=== PATIENT | male | born 1950 | race Caucasian/White ===

== ENCOUNTER 2019-02-22 08:04 | Inpatient (IN) | payer MEDICARE, OTHER ==
[~2019-02-22] VITALS: Ht 198.1 cm; Wt 96.2 kg
--- OUTSIDE RECORDS SUMMARY | 2019-02-22 08:07 | XMS REPORT | Clinical Summary ---
Author Author JARED TrashOutBo[facility] Medical CenterAltor NetworksCentral Arkansas Veterans Healthcare SystemFwdHealthShriners Hospital for Children Address Unknown Phone Unavailable Care Team Providers Care Telephone Sales Agent Name Role Phone Nic Paz MD PCP Unavailable Matthew Armstrong Unavailable Allergies No Known Allergies Medications End Date Status Medication Sig Dispensed Refills Start Date Active rosuvastatin (CRESTOR) 40 Take 40 mg by 0 MG tablet mouth daily. Active DULoxetine (CYMBALTA) 30 Take 60 mg by 0 MG capsule mouth daily. Active tamsulosin (FLOMAX) 0.4 Take 0.4 mg 0 mg Cp24 24 hr capsule by mouth daily. Active allopurinol (ZYLOPRIM) Take 300 mg 0 300 MG tablet by mouth daily. Active spironolactone Take 25 mg by 0 (ALDACTONE) 25 MG tablet mouth daily. Active torsemide (DEMADEX) 10 MG Take 10 mg by 0 tablet mouth daily. Active lisinopril Take 40 mg by 0 (PRINIVIL,ZESTRIL) 40 MG mouth daily. tablet Active cloNIDine (CATAPRES) 0.1 Take 0.1 mg 0 MG tablet by mouth 3 (three) times daily. Active carvedilol (COREG) 25 MG Take 25 mg by 0 tablet mouth 2 (two) times daily with breakfast and dinner. Active esomeprazole (NEXIUM) 40 Take 40 mg by 0 MG capsule mouth daily. Active HYDROcodone-acetaminophen Take 1 tablet 0 (NORCO 10-325) 10-325 mg by mouth per tablet every 6 (six) hours as needed. Active blood sugar diagnostic GLUCOMETER 400 strip 3 (GLUCOSE BLOOD) Strp TEST STRIPS 4 TO USE 4 A DAY # 400 REFILLS X 3 LANCETS TO USE 4 A DAY # 400 REFILLS X 3 Active insulin detemir (LEVEMIR TO USE 42 15 mL 3 FLEXPEN) 100 unit/mL (3 UNITS Q AM 4 mL) InPn AND 20 UNITS Q 9 PM Active insulin lispro (HUMALOG TO USE 18 TO 15 mL 3 KWIKPEN) 100 unit/mL InPn 50 UNITS 4 THREE TIMES A DAY PER SLIDING SCALE Active insulin needles, TO USE 6 A 600 each 3 disposable, 31 X 5/16 " DAY 4 Ndle Active Problems Problem Noted Date Encephalopathy 10/20/2013 Immunizations Name Dates Previously Given Next Due Pneumococcal 10/21/2013 Polysaccharide (Pneumovax) Social History Date Tobacco Use Types Packs/Day Years Used Never Smoker Smokeless Tobacco: Never Used Alcohol Use Drinks/Week oz/Week Comments No Sex Assigned at Date Recorded Not on file Industry Job Start Date Occupation Not on file Not on file Not on file Travel End Travel History Travel Start No recent travel history available. Last Filed Vital Signs Not on file Plan of Treatment Not on file Results Not on fileafter 02/21/2018 Insurance Payer Benefit Subscriber ID Type Phone Address Plan / Group MEDICARE MEDICARE A xxxxxxxxxx Medicare B MCR SUPPLEMENT/INDIVIDUAL GENERIC xxxxxxxxxx Medigap MEDICARE SUPPLEMENT MCR SUPPLEMENT/INDIVIDUAL AARP/UNITE xxxxxxxxxxx Medigap D HEALTHCARE Advance Directives For more information, please contact: [address] [address] Date Inactivated Comments Code Status Date Activated 10/25/2013 5:35 PM All possible means of support, including: cardiac massage, mechanical ventilation, and defibrillation will be used to support life. Code ONE 10/21/2013 12:59 AM
--- OUTSIDE RECORDS SUMMARY | 2019-02-22 08:10 | XMS REPORT | Continuity of Care Document ---
Author Author [employer] Address Unknown Phone Unavailable Care Team Providers Care Research Chef Name Role Phone [employer]Fire Information [facility] [facility] Unavailable Unavailable Problems Problem Status Onset Date Classification Date Reported Comments Source THROMBECTOMY Active 01/18/2019 [facility] 3 Active 01/18/2019 [facility] MRSA WOUND Active 10/29/2018 [facility] Methicillin resistant Staphylococcus aureus (organism) Active 08/01/2018 Problem 02/07/2019 [facility] Joint Aspirate - 08/01/2018 Blood, 01/19/2017 Problem added by Discern Expert. Medical Group,[facility], JESSE [place] RIGHT LOWER LEG WOUND CHRCK Active 07/28/2018 [facility] RIGHT LEG SWELLING Active 07/15/2017 [facility] SENT BY Active 04/10/2017 [facility] DEEP [place] THROMBOSIS Active 04/10/2017 [facility] CELLULITIS EVE LOWER EXTREMITY AFTER RES Active 01/19/2017 [facility] CELLULITITS,CHRONIC OSTEOMYELITIS ANKLE/ Active 01/19/2017 [facility] DR SENT DIABETIC/WOUND Active 01/19/2017 [facility] R06.02 - SHORTNESS OF BREATH Active 10/17/2016 JESSE Guerrier Gout (disorder) Active 07/05/2014 Problem 02/07/2019 Data migrated from [employer] on 11/20/14. Medical Group,[facility], JESSE Guerrier, JESSE [place] Chronic kidney disease stage 4 (disorder) Active 07/05/2014 Problem 10/20/2016 Data migrated from [employer] on 11/20/14. 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 Medical Group,[facility], JESSE Guerrier, JESSE [place] Edema (finding) Active 03/12/2014 Problem 10/20/2016 Data migrated from [employer] on 11/20/14. [facility] [place] Malignant hypertension (disorder) Active 11/23/2013 Problem 10/20/2016 Data migrated from [employer] on 11/20/14. [facility] [place] Depressive disorder (disorder) Active 08/10/2013 Problem 10/20/2016 Data migrated from [employer] on 11/20/14. [facility] [place] Impotence (disorder) Active 05/05/2013 Problem 10/20/2016 Data migrated from [employer] on 11/20/14. [facility] [place] Atrial fibrillation (disorder) Active Problem 02/07/2019 Medical Group,[facility], [place] [place] Benign essential hypertension (disorder) Active Problem 02/07/2019 Data migrated from [employer] on 11/20/14. Medical Group,[facility], [place] [place], [facility] [place] Chronic diastolic heart failure (disorder) Active Problem 02/07/2019 Medical Group,[facility], [facility] [place] Congestive heart failure (disorder) Resolved Problem 02/07/2019 Medical Group,[facility], [facility] [place] Diabetes mellitus (disorder) Resolved Problem 02/07/2019 Medical Group,[facility], [place] [place], [facility] [place] Hypertensive disorder, systemic arterial (disorder) Resolved Problem 02/07/2019 Medical Group,[facility], [facility] [place] Metabolic encephalopathy (disorder) Active Problem 02/07/2019 Medical Group,[facility], [facility] [place] Osteomyelitis (disorder) Resolved Problem 02/07/2019 Medical Group,[facility], [facility] [place] Clear cell carcinoma of kidney (disorder) Resolved Problem 02/07/2019 Medical Group,[facility], [place] [place], [facility] [place] Coffee ground vomiting (disorder) Active Problem 02/07/2019 Medical Group,[facility], [facility] [place] Asthma (disorder) Active Problem 10/20/2016 Data migrated from [employer] on 11/20/14. [facility] [place] Chronic kidney disease stage 3 (disorder) Active Problem 10/20/2016 Data migrated from [employer] on 11/20/14. [facility] [place] Dyspnea (finding) Active Problem 10/20/2016 Data migrated from [employer] on 11/20/14. [facility] [place] Malaise and fatigue (finding) Active Problem 10/20/2016 Data migrated from [employer] on 11/20/14. [facility] [place] Obesity (disorder) Active Problem 10/20/2016 [facility] [place] Post-inflammatory pulmonary fibrosis (disorder) Active Problem 10/20/2016 Data migrated from [employer] on 11/20/14. [facility] [place] Pure hypercholesterolemia (disorder) Active Problem 10/20/2016 Data migrated from [employer] on 11/20/14. [facility] [place] Spontaneous ecchymosis (finding) Active Problem 10/20/2016 Data migrated from [employer] on 11/20/14. [facility] [place] Hepatomegaly with splenomegaly, not elsewhere classified 2018 [facility] Hypercholesterolemia (disorder) Active Problem 02/07/2019 Medical Group,[facility] ILLNESS, UNSPECIFIED Active [facility] CELLULITIS, UNSPECIFIED Active [facility] HYPOGLYCEMIA, UNSPECIFIED Active [facility] ACUTE EMBOLISM AND THOMBOS UNSP DEEP VEI Active [facility] Medications Medication Details Route Status Patient Instructions Ordering Provider Order Date Source Docusate Sodium 100 MG Oral Capsule [Colace] 100 mg, 1 cap, Route: PO, Drug form: CAP, Bedtime, Dosing Weight 95.007, kg, Start date: 02/04/19 21:00:00 CDT, Duration: 30 day, Stop date: 03/05/19 21:00:00 CDT, 0Notes: (Same as: Colace) (Do Not Crush) No Longer Active 02/05/2019 [facility] allopurinol 100 mg oral tablet 200 mg=2 tab, PO, Daily, 0 Refill(s) Active 02/04/2019 [facility] apixaban 5 mg oral tablet 5 mg=1 tab, PO, Q12H, 0 Refill(s) Active 02/04/2019 [facility] lisinopril 20 mg oral tablet 20 mg=1 tab, PO, BID, 0 Refill(s) Active 02/04/2019 [facility] metoprolol tartrate 25 mg oral tablet 25 mg=1 tab, PO, Q12H, 0 Refill(s) Active 02/04/2019 [facility] tamsulosin 0.4 mg oral capsule 0.4 mg=1 cap, PO, Daily, 0 Refill(s) Active 02/04/2019 [facility] Acetaminophen 650 MG Rectal Suppository 650 mg=1 supp, ID, Q6H, PRN Pain Score 1-3, 0 Refill(s) Active 02/04/2019 [facility] amLODIPine 10 mg oral tablet 10 mg=1 tab, PO, Daily, 0 Refill(s) Active 02/04/2019 [facility] Docusate Sodium 100 MG Oral Capsule [Colace] 100 mg=1 cap, PO, BID, 0 Refill(s) Inactive 02/04/2019 [facility] finasteride 5 mg oral tablet 5 mg=1 tab, PO, Daily, 0 Refill(s) Active 02/04/2019 [facility] Melatonin 5 MG Sublingual Tablet 5 mg=1 tab, PO, Bedtime, 0 Refill(s) Active 02/04/2019 [facility] torsemide 20 mg oral tablet 20 mg=1 tab, PO, BID, 0 Refill(s) Active 02/04/2019 [facility] NS (Bolus) IV 500 mL, 500 ml/hr, Infuse Over: 1 hr, Route: IV, 500, Drug form: INJ, ONCE, Priority: STAT, Dosing Weight 95.007 kg, Start date: 02/03/19 13:16:00 CDT, Stop date: 02/03/19 13:16:00 CDT, 0 Inactive 02/03/2019 [facility] NS 1,000 mL 1,000 mL, Rate: 75 ml/hr, Infuse over: 13.3 hr, Route: IV, Dosing Weight 95.007 kg, Total Volume: 1,000, Start date: 02/03/19 8:21:00 CDT, Duration: 30 day, Stop date: 03/05/19 8:20:00 CDT, 2.29, m2, 0 No Longer Active 02/03/2019 [facility] NS (Bolus) IV 500 mL, 250 ml/hr, Infuse Over: 2 hr, Route: IV, 500, Drug form: INJ, ONCE, Priority: STAT, Dosing Weight 95.007 kg, Start date: 02/03/19 7:28:00 CDT, Stop date: 02/03/19 7:28:00 CDT, 0 Inactive 02/03/2019 [facility] Seroquel 12.5 mg, 0.5 tab, Route: PO, Drug form: TAB, ONCE, Dosing Weight 95.007, kg, Start date: 02/02/19 20:00:00 CDT, Stop date: 02/02/19 20:00:00 CDT, 0 Inactive 02/03/2019 [facility] Seroquel 12.5 mg, Route: PO, Drug form: TAB, Bedtime, Dosing Weight 95.007, kg, PRN Agitation, Start date: 02/02/19 13:27:00 CDT, Duration: 30 day, Stop date: 03/04/19 13:26:00 CDT, 0 Inactive 02/02/2019 [facility] Seroquel 25 mg, 1 tab, Route: PO, Drug form: TAB, Daily, Dosing Weight 95.007, kg, Start date: 02/02/19 9:00:00 CDT, Duration: 30 day, Stop date: 03/03/19 9:00:00 CDT, 0Notes: (Same as: SEROquel) Inactive 02/02/2019 [facility] Seroquel 12.5 mg, 0.5 tab, Route: PO, Drug form: TAB, Bedtime, Dosing Weight 95.007, kg, PRN Agitation, Start date: 02/02/19 8:32:00 CDT, Duration: 30 day, Stop date: 03/04/19 8:31:00 CDT, 0Notes: (Same as: SEROquel) 12.5 mg=1/2 x 25 mg tab Inactive 02/02/2019 [facility] Melatonin 5 mg, 1 tab, Route: PO, Drug form: TAB, Bedtime, Dosing Weight 95.007, kg, Start date: 02/01/19 21:00:00 CDT, Duration: 30 day, Stop date: 03/02/19 21:00:00 CDT, 0Notes: (Same as: Melatonin) No Longer Active 02/02/2019 [facility] Seroquel 12.5 mg, 0.5 tab, Route: PO, Drug form: TAB, Q12H, Dosing Weight 95.007, kg, PRN Agitation, Start date: 02/01/19 9:40:00 CDT, Duration: 30 day, Stop date: 03/03/19 9:39:00 CDT, 0Notes: (Same as: SEROquel) 12.5 mg=1/2 x 25 mg tab No Longer Active 02/01/2019 [facility] Proscar 5 mg, 1 tab, Route: PO, Drug form: TAB, Daily, Dosing Weight 95.007, kg, Priority: NOW, Start date: 01/31/19 9:11:00 CDT, Duration: 30 day, Stop date: 03/02/19 9:00:00 CDT, 0Notes: (Same as: Proscar) & quot;Do Not Crush" Women of childbearing age should not touch or handle broken tablets No Longer Active 01/31/2019 [facility] Ferrlecit 125 mg, 10 mL, Route: IV, Q7D, Dosing Weight 95.007, kg, Start date: 01/30/19 12:00:00 CDT, Stop date: 03/20/19 10:00:00 CDT, 0Notes: (sodium ferric gluconate complex (elemental iron) 62.5 mg/5 ml INJ) "Limited stability. Use immediately after admixture" (Same as: Ferrlecit) MEDICATION WASTE Product Size: 62.5 mg Product Wasted: _0__ mg No Longer Active 01/30/2019 [facility] metoprolol tartrate 25 mg, 1 tab, Route: PO, Drug form: TAB, Q12H, Dosing Weight 95.007, kg, Start date: 01/30/19 12:00:00 CDT, Duration: 30 day, Stop date: 03/01/19 6:00:00 CDT, 0Notes: (Same as: Lopressor) No Longer Active 01/30/2019 [facility] ferrous gluconate 125 mg, Route: PO, Q7D, Dosing Weight 95.007, kg, Start date: 01/30/19 7:00:00 CDT, Stop date: 03/20/19 9:00:00 CDT Inactive 01/30/2019 [facility] Dulcolax Laxative 10 mg, 1 supp, Route: ID, Drug form: SUPP, ONCE, Dosing Weight 95.007, kg, Start date: 01/30/19 6:01:00 CDT, Stop date: 01/30/19 6:01:00 CDT, 0Notes: (Same As: Dulcolax, Bisco-Lax) Inactive 01/30/2019 [facility] magnesium citrate 58.2 MG/ML Oral Solution 150 ml, Route: PO, Drug Form: LIQ, Dosing Weight 95.007, kg, ONCE, STAT, Start date: 01/30/19 0:45:00 CDT, Stop date: 01/30/19 0:45:00 CDT, 0Notes: (Same as: Citrate of Magnesia) Concentration: 1.745 gm / 30 mL Inactive 01/30/2019 [facility] enalaprilat 1.25 mg, 1 mL, Route: IVP, Drug form: INJ, Q6H, Dosing Weight 95.007, kg, PRN Hypertension, for CrCl > 30 mL/min, Start date: 01/29/19 22:43:00 CDT, Duration: 30 day, Stop date: 02/28/19 22:42:00 CDT, 0Notes: (Same as: Vasotec-IV) No Longer Active 01/30/2019 [facility] Eliquis 5 mg, 1 tab, Route: PO, Drug form: TAB, Q12H, Dosing Weight 95.007, kg, Start date: 01/29/19 21:00:00 CDT, Duration: 30 day, Stop date: 02/28/19 9:00:00 CDT, 0Notes: Same as: Eliquis No Longer Active 01/30/2019 [facility] Norvasc 10 mg, 1 tab, Route: PO, Drug form: TAB, Daily, Dosing Weight 95.007, kg, Priority: NOW, Start date: 01/28/19 15:35:00 CDT, Duration: 30 day, Stop date: 02/27/19 9:00:00 CDT, 0Notes: (Same as: Norvasc) No Longer Active 01/28/2019 [facility] Finasteride 1 mg, 1 tab, Route: DHT, Drug form: TAB, Daily, Dosing Weight 95.007, kg, Priority: NOW, Start date: 01/28/19 15:34:00 CDT, Duration: 30 day, Stop date: 02/27/19 9:00:00 CDT, 0Notes: Same as Proscar &qu ot;Do Not Crush" Women of childbearing age should not touch or handle broken tablets No Longer Active 01/28/2019 [facility] Dextrose 5% in Water IV 1,000 mL 1,000 mL, Rate: 100 ml/hr, Infuse over: 10 hr, Route: IV, Dosing Weight 95.007 kg, Total Volume: 1,000, Start date: 01/28/19 15:32:00 CDT, Duration: 30 day, Stop date: 02/27/19 15:31:00 CDT, 2.29, m2, 0 No Longer Active 01/28/2019 [facility] Levsin SL 0.125 mg, 1 tab, Route: SL, Drug form: TAB, Q6H, Dosing Weight 95.007, kg, PRN Bladder Spasm, Start date: 01/28/19 15:32:00 CDT, Duration: 30 day, Stop date: 02/27/19 15:31:00 CDT, 0Notes: (Same as: Levsin) Take 30 min before meal No Longer Active 01/28/2019 [facility] NIFEdipine 90 mg oral tablet, extended release 90 mg, 1 tab, Route: PO, Drug form: ERTAB, Daily, Dosing Weight 95.007, kg, Start date: 01/28/19 9:00:00 CDT, Duration: 30 day, Stop date: 02/26/19 9:00:00 CDT, 0Notes: (Same as: Adalat CC,Procardia XL) "Do Not Crush" "Avoid grapefruit and grapefruit juice" Inactive 01/28/2019 [facility] tamsulosin 0.4 mg, 1 cap, Route: PO, Drug form: CAP, Daily, Dosing Weight 95.007, kg, Start date: 01/28/19 9:00:00 CDT, Duration: 30 day, Stop date: 02/26/19 9:00:00 CDT, 0Notes: (Same As: Flomax) "Do Not Crush" No Longer Active 01/28/2019 [facility] Allopurinol 200 mg, 2 tab, Route: PO, Drug form: TAB, Daily, Dosing Weight 95.007, kg, Start date: 01/28/19 9:00:00 CDT, Duration: 30 day, Stop date: 02/26/19 9:00:00 CDT, 0Notes: (Same as: Zyloprim) No Longer Active 01/28/2019 [facility] Sodium Chloride 0.9% (titrate) 250 mL 250 mL, Rate: To prime line and flush remaining blood products., Dosing Weight 95.007, kg, Route: IV, Total Volume: 250, Start Date: 01/28/19 6:28:00 CDT, Duration: 1 day, Stop date: 01/29/19 6:27:00 CDT, Replace Every: 24 hr, 0 Inactive 01/28/2019 [facility] Sodium Chloride 0.9% (titrate) 250 mL 250 mL, Rate: To prime line and flush remaining blood products., Dosing Weight 95.007, kg, Route: IV, Total Volume: 250, Start Date: 01/28/19 6:24:00 CDT, Duration: 1 day, Stop date: 01/29/19 6:23:00 CDT, Replace Every: 24 hr, 0 Inactive 01/28/2019 [facility] remove patch 2 patch, Route: TOP, Daily, Drug form: ERFILM, Start date: 01/28/19 4:00:00 CDT, Duration: 30 day, Stop date: 02/26/19 4:00:00 CDT, 0 No Longer Active 01/28/2019 [facility] Tylenol Route: IV, Drug form: INJ, ONCE, Dosing Weight 95.007, kg, Start date: 01/28/19 0:17:00 CDT, Stop date: 01/28/19 0:17:00 CDT, 0Notes: Infuse over 15 minutes Do not exceed 4gm/day of acetaminophen MEDICATION WASTE Product Size: 1000 mg Product Wasted: ___ mg Inactive 01/28/2019 [facility] Chlorpheniramine 4 mg, Route: PO, Drug form: TAB, ONCE, Dosing Weight 95.007, kg, PRN Allergic reaction, Start date: 01/27/19 22:35:00 CDT Inactive 01/28/2019 [facility] Docusate Sodium 100 MG Oral Capsule [Colace] 100 mg, 1 cap, Route: PO, Drug form: CAP, BID, Dosing Weight 95.007, kg, Start date: 01/27/19 17:00:00 CDT, Duration: 30 day, Stop date: 02/26/19 9:00:00 CDT, 0Notes: (Same as: Colace) (Do Not Crush) No Longer Active 01/27/2019 [facility] sennosides, [facility] 8.6 mg, 1 tab, Route: PO, Drug Form: TAB, Dosing Weight 95.007, kg, BID, Start date: 01/27/19 17:00:00 CDT, Duration: 30 day, Stop date: 02/26/19 9:00:00 CDT, 0Notes: (Same as: Senokot) No Longer Active 01/27/2019 [facility] Lidocaine 0.05 MG/MG Transdermal Patch 2 patch, Route: TOP, QPM, Drug form: FILM, Start date: 01/27/19 16:00:00 CDT, Duration: 30 day, Stop date: 02/25/19 16:00:00 CDT, 0 No Longer Active 01/27/2019 [facility] Acetaminophen 650 mg, 1 supp, Route: ID, Drug form: SUPP, Q6H, Dosing Weight 95.007, kg, PRN Pain Score 1-3, Start date: 01/27/19 15:12:00 CDT, Duration: 30 day, Stop date: 02/26/19 15:11:00 CDT, 0 No Longer Active 01/27/2019 [facility] Lidocaine 0.05 MG/MG Transdermal Patch 1 patch, Route: TOP, Daily, Drug form: FILM, Start date: 01/27/19 15:01:00 CDT, Duration: 30 day, Stop date: 02/26/19 9:00:00 CDT Inactive 01/27/2019 [facility] Robaxin 500 mg, 5 mL, Route: IV, Drug form: INJ, ONCE, Dosing Weight 95.007, kg, Priority: NOW, Start date: 01/27/19 15:00:00 CDT, Stop date: 01/27/19 15:00:00 CDT, 0Notes: (Same as:Robaxin) Inactive 01/27/2019 [facility] torsemide 20 mg, 1 tab, Route: PO, Drug form: TAB, BID, Dosing Weight 95.007, kg, Start date: 01/27/19 9:00:00 CDT, Duration: 30 day, Stop date: 02/25/19 17:00:00 CDT, 0Notes: (Same As: Demadex) No Longer Active 01/27/2019 [facility] Lisinopril 20 mg, 1 tab, Route: PO, Drug form: TAB, BID, Dosing Weight 95.007, kg, Start date: 01/27/19 9:00:00 CDT, Duration: 30 day, Stop date: 02/25/19 17:00:00 CDT, 0Notes: (Same as: Prinivil, Zestril) No Longer Active 01/27/2019 [facility] heparin additive 25,000 unit [14 unit/kg/hr] + Premix Diluent Sodium Chloride 0.45% 500 mL 500 mL, Rate: 26.6 ml/hr, Infuse over: 18.8 hr, Route: IV, Dosing Weight 95 kg, Total Volume: 500 mL, Start date: 01/27/19 5:09:00 CDT, Duration: 30 day, Stop date: 02/26/19 5:08:00 CDT, 2.29, m2, 0Note s: Total Concentration=50 unit/ ml Total dqjzcr=327 ml Send Med Request 2 hours prior to next bag No Longer Active 01/27/2019 [facility] Versed 2 mg, 2 mL, Route: IVP, Drug form: INJ, PRN, Dosing Weight 95.007, kg, PRN Other -See Comment, Start date: 01/27/19 2:33:00 CDT, Duration: 2 doses or times, Stop date: Limited # of times, 0Notes: (Same as: Versed) MEDICATION WASTE Product Size: 2 mg Product Wasted: ___ mg Inactive 01/27/2019 [facility] atorvastatin 20 mg, 1 tab, Route: GT, Drug form: TAB, Bedtime, Dosing Weight 111.591, kg, Start date: 01/26/19 21:00:00 CDT, Duration: 30 day, Stop date: 02/24/19 21:00:00 CDT, 0Notes: (Same As: Lipitor) No Longer Active 01/27/2019 [facility] Saline Flush 0.9% 10 ml, Route: IVP, Drug Form: INJ, Dosing Weight 111.591, kg, Q12H, Start date: 01/26/19 21:00:00 CDT, Duration: 30 day, Stop date: 02/25/19 9:00:00 CDT, 0Notes: (Same as: BD Posiflush) No Longer Active 01/27/2019 [facility] Aspirin 300 MG Rectal Suppository 300 mg, 1 supp, Route: ID, Drug form: SUPP, ONCE, Dosing Weight 95.007, kg, Priority: STAT, Start date: 01/26/19 18:04:00 CDT, Stop date: 01/26/19 18:04:00 CDT, 0Notes: Refrigerate. Inactive 01/26/2019 [facility] Labetalol 10 mg, 2 mL, Route: IVP, Drug form: INJ, Q10Min, Dosing Weight 95.007, kg, PRN Other -See Comment, Start date: 01/26/19 17:53:00 CDT, Duration: 30 day, Stop date: 02/25/19 17:52:00 CDT, 0 No Longer Active 01/26/2019 [facility] Nicardipine 20 mg, 200 mL, Rate: Titrate, Start Dose: 5 mg/hr, Titration: 2.5 mg/hr every 15 minutes, Goal(s): SBP 110-140, Max Dose: 15 mg/hr, Route: IV, Dosing Weight 95.007 kg, Total Volume: 200, Start date: 11/09 17:33:00 CDT, Duration: 30 day, Stop date:...Notes: Same as: Cardene Concentration: (0.1 mg/ 1 ml) No Longer Active 01/26/2019 [facility] Cardene 40 mg in NS 200 mL (Titrate.) IV 40 mg 40 mg, 200 mL, Rate: Titrate, Start Dose: 5 mg/hr, Titration: 2.5 mg/hr every 15 minutes, Goal(s): sbp 110-140 goal, Max Dose: 15 mg/hr, Route: IV, Dosing Weight 95.007 kg, Total Volume: 200, Start date: 01/26/19 17:17:00 CDT, Duration: 30 day, Stop d... Inactive 01/26/2019 [facility] Glucagon 1 mg, Route: IV, Drug form: PDR/INJ, ONCE, Dosing Weight 95.007, kg, Start date: 01/26/19 16:40:00 CDT, Stop date: 01/26/19 16:40:00 CDT, 0 Inactive 01/26/2019 [facility] Glucagon 1 mg, Route: SUB-Q, ONCE, Dosing Weight 95.007, kg, Start date: 01/26/19 16:39:00 CDT, Stop date: 01/26/19 16:39:00 CDT Inactive 01/26/2019 [facility] heparin sodium, porcine 2500 UNT/ML Injectable Solution 5,000 unit, 1 mL, Route: SUB-Q, Drug form: INJ, Q8H, Dosing Weight 111.591, kg, Start date: 01/26/19 16:00:00 CDT, Duration: 30 day, Stop date: 02/25/19 8:00:00 CDT, 0Notes: porcine heparin No Longer Active 01/26/2019 [facility] Acetaminophen 650 mg, 2 tab, Route: PO, Drug form: TAB, Q6H, Dosing Weight 111.591, kg, PRN Pain Score 1-3, Start date: 01/26/19 14:18:00 CDT, Duration: 30 day, Stop date: 02/25/19 14:17:00 CDT, 0Notes: Do not exceed 4 gm/day. (Same as: Tylenol) No Longer Active 01/26/2019 [facility] Ondansetron 4 mg, 2 mL, Route: IVP, Drug form: INJ, Q8H, Dosing Weight 111.591, kg, PRN Nausea, Start date: 01/26/19 14:18:00 CDT, Duration: 30 day, Stop date: 02/25/19 14:17:00 CDT, 0Notes: (Same as: Zofran) MEDICATION WASTE Product Size: 4 mg Product Wasted: ___ mg No Longer Active 01/26/2019 [facility] aspirin 81 mg tablet, enteric coated 81 mg, 1 tab, Route: PO, Drug form: ECTAB, Daily, Dosing Weight 111.591, kg, Priority: Routine, Start date: 01/26/19 14:00:00 CDT, Duration: 30 day, Stop date: 02/25/19 9:00:00 CDT, 0Notes: Do not crush or chew. (Same As: Ecotrin) No Longer Active 01/26/2019 [facility] Labetalol 10 mg, 2 mL, Route: IVP, Drug form: INJ, Q5Min, Dosing Weight 111.591, kg, PRN Elevated BP, Start date: 01/26/19 11:40:00 CDT, Duration: 5 doses or times, Stop date: Limited # of times, 0 Inactive 01/26/2019 [facility] Hydromorphone 0.5 mg, 0.25 mL, Route: IVP, Drug form: INJ, Q5Min, Dosing Weight 111.591, kg, PRN Pain Score 7-10, Start date: 01/26/19 11:40:00 CDT, Duration: 4 doses or times, Stop date: Limited # of times, 0Notes: Same as Dilaudid Inactive 01/26/2019 [facility] Flumazenil 0.2 mg, 2 mL, Route: IVP, Drug form: INJ, PRN, Dosing Weight 111.591, kg, PRN Benzodiazepine Reversal, Initial dose, Start date: 01/26/19 11:40:00 CDT, Duration: 1 day, Stop date: 01/27/19 11:39:00 CDT, 0Notes: (Same as: Romazicon) Inactive 01/26/2019 [facility] Naloxone 0.4 mg, 1 mL, Route: IVP, Drug form: INJ, Q2MIN, Dosing Weight 111.591, kg, PRN Narcotic Reversal, Start date: 01/26/19 11:40:00 CDT, Duration: 8 doses or times, Stop date: Limited # of times, 0Notes: Same as Narcan Inactive 01/26/2019 [facility] Ondansetron 4 mg, 2 mL, Route: IVP, Drug form: INJ, ONCE, Dosing Weight 111.591, kg, PRN Nausea & Vomiting, Start date: 01/26/19 11:40:00 CDT, 0Notes: (Same as: Zofran) MEDICATION WASTE Product Size: 4 mg Product Wasted: ___ mg Inactive 01/26/2019 [facility] NS 1,000 mL 1,000 mL, Rate: 75 ml/hr, Infuse over: 13.3 hr, Route: IV, Dosing Weight 111.591 kg, Total Volume: 1,000, Start date: 01/26/19 11:38:00 CDT, Duration: 30 day, Stop date: 02/25/19 11:37:00 CDT, 2.48, m2, 0 No Longer Active 01/26/2019 [facility] Aspirin 81 mg, 1 tab, Route: PO, Drug form: ECTAB, Daily, Dosing Weight 111.591, kg, Priority: NOW, Start date: 01/26/19 11:36:00 CDT, Duration: 30 day, Stop date: 02/25/19 9:00:00 CDT, 0Notes: Do not crush or chew. (Same As: Ecotrin) Inactive 01/26/2019 [facility] Visipaque RediFlo Cartridge 150 mL, Route: INTRAARTERIAL, ONCE, Dosing Weight 111.591, kg, Start date: 01/26/19 11:21:00 CDT, Stop date: 01/26/19 11:21:00 CDT Inactive 01/26/2019 [facility] Saline Flush 0.9% 10 ml, Route: IVP, Drug Form: INJ, Dosing Weight 111.591, kg, PRN, PRN Line Flush, Start date: 01/26/19 11:00:00 CDT, Duration: 30 day, Stop date: 02/25/19 10:59:00 CDT, 0Notes: (Same as: BD Posiflush) No Longer Active 01/26/2019 [facility] ceFAZolin (ANES) Route: IV, Drug form: INJ, ONCE, Stop date: 01/26/19 8:34:00 CDT Inactive 01/26/2019 [facility] fentaNYL (ANES) Route: IV, Drug form: INJ, ONCE, Stop date: 01/26/19 8:24:00 CDT Inactive 01/26/2019 [facility] propofol (ANES) Route: IV, Drug form: INJ, ONCE, Stop date: 01/26/19 8:24:00 CDT Inactive 01/26/2019 [facility] Labetalol 10 mg, 2 mL, Route: IVP, Drug form: INJ, Q5Min, Dosing Weight 111.591, kg, PRN Elevated BP, Start date: 01/26/19 8:23:00 CDT, Duration: 5 doses or times, Stop date: 01/27/19 0:00:00 CDT, 0 Inactive 01/26/2019 [facility] Oxycodone Hydrochloride 5 MG Oral Tablet 5 mg, 1 tab, Route: PO, Drug form: TAB, Q4H, Dosing Weight 111.591, kg, PRN Pain Score 4-6, Start date: 01/26/19 8:23:00 CDT, Stop date: 01/27/19 8:22:00 CDT, 0Notes: (Same as: Roxicodone) Inactive 01/26/2019 [facility] Flumazenil 0.2 mg, 2 mL, Route: IVP, Drug form: INJ, PRN, Dosing Weight 111.591, kg, PRN Benzodiazepine Reversal, Initial dose, Start date: 01/26/19 8:23:00 CDT, Stop date: 01/27/19 8:22:00 CDT, 0Notes: (Same as: Romazicon) Inactive 01/26/2019 [facility] Naloxone 0.4 mg, 1 mL, Route: IVP, Drug form: INJ, Q2MIN, Dosing Weight 111.591, kg, PRN Narcotic Reversal, Start date: 01/26/19 8:23:00 CDT, Duration: 8 doses or times, Stop date: 01/27/19 0:00:00 CDT, 0Notes: Same as Narcan Inactive 01/26/2019 [facility] Ondansetron 4 mg, 2 mL, Route: IVP, Drug form: INJ, ONCE, Dosing Weight 111.591, kg, PRN Nausea & Vomiting, Start date: 01/26/19 8:23:00 CDT, 0Notes: (Same as: Zofran) MEDICATION WASTE Product Size: 4 mg Product Wasted: ___ mg Inactive 01/26/2019 [facility] midazolam (ANES) Route: IV, Drug form: SOLN, ONCE, Stop date: 01/26/19 8:19:00 CDT Inactive 01/26/2019 [facility] Metolazone 5 MG Oral Tablet 5 mg=1 tab, PO, BID, 0 Refill(s) No Longer Active 01/26/2019 [facility] Acetaminophen 300 MG / Codeine Phosphate 60 MG Oral Tablet [Tylenol with Codeine #4] 1 tab, PO, Q6H, PRN pain, 0 Refill(s) No Longer Active 01/26/2019 [facility] Lactated Ringers Injection IV (ANES) 1000 mL Route: IV, Total Volume: 1,000, Start date: 01/26/19 7:33:00 CDT, Stop date: 01/26/19 8:33:00 CDT Inactive 01/26/2019 [facility] apixaban 5 MG Oral Tablet [Eliquis] 5 mg, PO, Q12H, 0 Refill(s) No Longer Active 01/26/2019 [facility] Acetaminophen 325 MG / Hydrocodone Bitartrate 10 MG Oral Tablet [[place] 10/325] 1 tab, PO, Q6H, 0 Refill(s) No Longer Active 01/26/2019 [facility] potassium chloride 25 mEq oral powder 0 Refill(s) No Longer Active 01/26/2019 [facility] rosuvastatin 5 mg oral tablet 5 mg=1 tab, PO, Daily, 0 Refill(s) No Longer Active 01/26/2019 [facility] torsemide 20 mg oral tablet 20 mg=1 tab, PO, BID, 0 Refill(s) No Longer Active 01/26/2019 [facility] lisinopril 40 mg oral tablet 40 mg=1 tab, PO, BID, 0 Refill(s) No Longer Active 01/26/2019 [facility] Acetaminophen 325 MG / Hydrocodone Bitartrate 10 MG Oral Tablet 1 tab, PO, Q6H, PRN Pain Score 7-10, X 3 day, # 12 tab, 0 Refill(s), given to patient Active 11/07/2018 [facility] enoxaparin 40 mg/0.4 mL subcutaneous solution 40 mg, SUB- Q, Daily, X 30 day, # 30 ea, 0 Refill(s), other Active 11/07/2018 [facility] pantoprazole 40 mg oral enteric coated tablet 40 mg=1 tab, PO, Before Breakfast, 0 Refill(s) Active 11/07/2018 [facility] Aspirin 81 MG Enteric Coated Tablet 81 mg=1 tab, PO, Daily, 0 Refill(s) Active 11/07/2018 [facility] ceFAZolin (ANES) Route: IV, Drug form: INJ, ONCE, Stop date: 11/07/18 11:50:00 CDT Inactive 11/07/2018 [facility] propofol (ANES) Route: IV, Drug form: INJ, ONCE, Stop date: 11/07/18 11:40:00 CDT Inactive 11/07/2018 [facility] fentaNYL (ANES) Route: IV, Drug form: INJ, ONCE, Stop date: 11/07/18 11:35:00 CDT Inactive 11/07/2018 [facility] Fentanyl 50 microgram, 1 mL, Route: IVP, Drug form: INJ, Q5Min, Dosing Weight 103.009, kg, PRN Pain Score 7-10, Priority: Routine, Start date: 11/07/18 11:27:00 CDT, Duration: 2 doses or times, Stop date: 11/08/18 0:00:00 CDTNotes: (Same as: Sublimaze) Preservative free. Inactive 11/07/2018 [facility] Flumazenil 0.2 mg, 2 mL, Route: IVP, Drug form: INJ, PRN, Dosing Weight 103.009, kg, PRN Benzodiazepine Reversal, Initial dose, Start date: 11/07/18 11:27:00 CDT, Stop date: 11/08/18 0:00:00 CDTNotes: (Same as: Romazicon) Inactive 11/07/2018 [facility] Naloxone 0.4 mg, 1 mL, Route: IVP, Drug form: INJ, Q2MIN, Dosing Weight 103.009, kg, PRN Narcotic Reversal, Start date: 11/07/18 11:27:00 CDT, Duration: 8 doses or times, Stop date: 11/08/18 0:00:00 CDTNotes: Same as Narcan Inactive 11/07/2018 [facility] Oxycodone 5 mg, 1 tab, Route: PO, Drug form: TAB, Q4H, Dosing Weight 103.009, kg, PRN Pain Score 4-6, Start date: 11/07/18 11:27:00 CDT, Stop date: 11/08/18 0:00:00 CDTNotes: (Same as: Roxicodone) Inactive 11/07/2018 [facility] Labetalol 10 mg, 2 mL, Route: IVP, Drug form: INJ, Q5Min, Dosing Weight 103.009, kg, PRN Elevated BP, Start date: 11/07/18 11:27:00 CDT, Duration: 5 doses or times, Stop date: 11/08/18 0:00:00 CDT Inactive 11/07/2018 [facility] Sodium Chloride 0.9% IV 1,000 mL 1,000 mL, Rate: 125 ml/hr, Infuse over: 8 hr, Route: IV, Dosing Weight 103.009 kg, Total Volume: 1,000, Start date: 11/07/18 11:27:00 CDT, Duration: 30 day, Stop date: 12/07/18 11:26:00 CDT, 2.38, m2 Inactive 11/07/2018 [facility] Ondansetron 4 mg, 2 mL, Route: IVP, Drug form: INJ, ONCE, Dosing Weight 103.009, kg, PRN Nausea & Vomiting, Start date: 11/07/18 11:27:00 CDTNotes: (Same as: Zofran) MEDICATION WASTE Product Size: 4 mg Product Wasted: ___ mg Inactive 11/07/2018 [facility] Sodium Chloride 0.9% (Bolus) IV 500 mL, 1500 ml/hr, Infuse Over: 20 minutes, Route: IV, 500, Drug form: INJ, ONCE, Dosing Weight 103.009 kg, Start date: 11/07/18 11:27:00 CDT, Stop date: 11/07/18 11:27:00 CDT Inactive 11/07/2018 [facility] Isolyte S PH 7.4 (ANES) 1000 mL Route: IV, Total Volume: 1,000, Start date: 11/07/18 10:43:00 CDT, Stop date: 11/07/18 11:43:00 CDT Inactive 11/07/2018 [facility] Lovenox 30 mg, 0.3 mL, Route: SUB-Q, Drug form: INJ, Daily, Dosing Weight 103.009, kg, Start date: 11/04/18 9:00:00 CDT, Duration: 30 day, Stop date: 12/03/18 9:00:00 CDTNotes: (Same as: Lovenox) No Longer Active 11/04/2018 [facility] Hydromorphone 0.5 mg, 0.25 mL, Route: IVP, Drug form: INJ, ONCE, Dosing Weight 103.009, kg, Priority: STAT, Start date: 11/04/18 8:43:00 CDT, Stop date: 11/04/18 8:43:00 CDTNotes: Same as Dilaudid Inactive 11/04/2018 [facility] Cefazolin 2 gm, 20 mL, Route: IVP, Drug form: SOLN, ABXQ8H, Dosing Weight 103.009, kg, Start date: 11/03/18 23:00:00 CDT, Duration: 2 day, Stop date: 11/05/18 15:00:00 CDT, ABX Indication: Surgical Prophylaxis No Longer Active 11/04/2018 [facility] Morphine 2 mg, 0.5 mL, Route: IVP, Drug form: SOLN, ONCE, Dosing Weight 103.009, kg, Start date: 11/03/18 21:40:00 CDT, Stop date: 11/03/18 21:40:00 CDTNotes: (Same as:MORPhine Sulfate) Inactive 11/04/2018 [facility] gabapentin 300 MG Oral Capsule 300 mg, Route: PO, Drug form: CAP, ONCE, Dosing Weight 103.009, kg, Start date: 11/03/18 19:53:00 CDT, Stop date: 11/03/18 19:53:00 CDT Inactive 11/04/2018 [facility] Lactated Ringers IV 1,000 mL 1,000 mL, Rate: 125 ml/hr, Infuse over: 8 hr, Route: IV, Dosing Weight 103.009 kg, Total Volume: 1,000, Start date: 11/03/18 17:13:00 CDT, Duration: 30 day, Stop date: 12/03/18 17:12:00 CDT, 2.38, m2 No Longer Active 11/03/2018 [facility] sugammadex (ANES) Route: IV, Drug form: SOLN, ONCE, Stop date: 11/03/18 17:10:00 CDT Inactive 11/03/2018 [facility] ondansetron (ANES) Route: IV, Drug form: INJ, ONCE, Stop date: 11/03/18 17:05:00 CDT Inactive 11/03/2018 [facility] calcium chloride (ANES) Route: IV, Drug form: INJ, ONCE, Stop date: 11/03/18 17:00:00 CDT Inactive 11/03/2018 [facility] sugammadex 200 mg, 2 mL, Route: IV, Drug form: SOLN, ONCALL, Start date: 11/03/18 16:22:00 CDT, Duration: 1 doses or times, Stop date: 11/03/18 16:22:00 CDTNotes: (Same as: Bridion) No Longer Active 11/03/2018 [facility] esmolol (ANES) Route: IV, Drug form: INJ, ONCE, Stop date: 11/03/18 16:18:00 CDT Inactive 11/03/2018 [facility] phenylephrine (ANES) Route: IV, Drug form: INJ, ONCE, Stop date: 11/03/18 16:03:00 CDT Inactive 11/03/2018 [facility] ceFAZolin (ANES) Route: IV, Drug form: INJ, ONCE, Stop date: 11/03/18 15:53:00 CDT Inactive 11/03/2018 [facility] rocuronium ([facility]) Route: IV, Drug form: INJ, ONCE, Stop date: 11/03/18 15:43:00 CDT Inactive 11/03/2018 [facility] propofol ([facility]) Route: IV, Drug form: INJ, ONCE, Stop date: 11/03/18 15:43:00 CDT Inactive 11/03/2018 [facility] fentaNYL (ANES) Route: IV, Drug form: INJ, ONCE, Stop date: 11/03/18 15:43:00 CDT Inactive 11/03/2018 [facility] lidocaine (ANES) Route: IV, Drug form: INJ, ONCE, Stop date: 11/03/18 15:43:00 CDT Inactive 11/03/2018 [facility] Sodium Chloride 0.9% IV (ANES) 1000 mL Route: IV, Total Volume: 1,000, Start date: 11/03/18 15:37:00 CDT, Stop date: 11/03/18 16:37:00 CDT Inactive 11/03/2018 [facility] Hydromorphone 0.5 mg, 0.25 mL, Route: IVP, Drug form: INJ, Q5Min, Dosing Weight 103.009, kg, PRN Pain Score 7-10, Start date: 11/03/18 15:28:00 CDT, Duration: 4 doses or times, Stop date: 11/04/18 0:00:00 CDTNotes: Same as Dilaudid Inactive 11/03/2018 [facility] Naloxone 0.4 mg, 1 mL, Route: IVP, Drug form: INJ, Q2MIN, Dosing Weight 103.009, kg, PRN Narcotic Reversal, Start date: 11/03/18 15:28:00 CDT, Duration: 8 doses or times, Stop date: 11/04/18 0:00:00 CDTNotes: Same as Narcan Inactive 11/03/2018 [facility] Flumazenil 0.2 mg, 2 mL, Route: IVP, Drug form: INJ, PRN, Dosing Weight 103.009, kg, PRN Benzodiazepine Reversal, Initial dose, Start date: 11/03/18 15:28:00 CDT, Stop date: 11/04/18 0:00:00 CDTNotes: (Same as: Romazicon) Inactive 11/03/2018 [facility] Ondansetron 4 mg, 2 mL, Route: IVP, Drug form: INJ, ONCE, Dosing Weight 103.009, kg, PRN Nausea & Vomiting, Start date: 11/03/18 15:28:00 CDTNotes: (Same as: Zofran) MEDICATION WASTE Product Size: 4 mg Product Wasted: ___ mg Inactive 11/03/2018 [facility] Labetalol 10 mg, 2 mL, Route: IVP, Drug form: INJ, Q5Min, Dosing Weight 103.009, kg, PRN Elevated BP, Start date: 11/03/18 15:28:00 CDT, Duration: 5 doses or times, Stop date: 11/04/18 0:00:00 CDT Inactive 11/03/2018 [facility] Metoprolol 1 mg, 1 mL, Route: IVP, Drug form: INJ, Q5Min, Dosing Weight 103.009, kg, PRN Other -See Comment, Start date: 11/03/18 15:28:00 CDT, Duration: 5 doses or times, Stop date: 11/04/18 0:00:00 CDTNotes: (Same as: Lopressor) Push over 2 minutes Inactive 11/03/2018 [facility] Lactated Ringers Injection IV (ANES) 1000 mL Route: IV, Total Volume: 1,000, Start date: 11/03/18 15:00:00 CDT, Stop date: 11/03/18 16:00:00 CDT Inactive 11/03/2018 [facility] Insulin Lispro 5 unit, 0.05 mL, Route: SUB-Q, Drug form: SOLN, TID-Before Meals, Dosing Weight 103.009, kg, Start date: 11/01/18 7:30:00 CDT, Duration: 30 day, Stop date: 11/30/18 16:30:00 CDTNotes: (Same as: Humalog) Roll in palms of hands gently; Do not shake vigorously. WASTE: F/P - Black; E - Municipal Trash Bin Stable for 28 days at room temperature. Expires in days from Date No Longer Active 11/01/2018 [facility] pantoprazole 40 mg, 1 tab, Route: PO, Drug form: ECTAB, Before Breakfast, Dosing Weight 103.009, kg, Start date: 11/01/18 7:30:00 CDT, Duration: 30 day, Stop date: 11/30/18 7:30:00 CDTNotes: Tablet should not be chewed or crushed. (Same as: Protonix) No Longer Active 11/01/2018 [facility] Tums 1,500 mg, 3 tab, Route: CHEW, Drug form: CHEWTAB, ONCE, Dosing Weight 103.009, kg, Start date: 11/01/18 5:58:00 CDT, Stop date: 11/01/18 5:58:00 CDTNotes: (Same As: Tums) Calcium Carbonate 500 ny=936 mg elemental calcium Dose= mg calcium carbonate ( mg elemental calcium) Inactive 11/01/2018 [facility] neostigmine (ANES) Route: IV, Drug form: INJ, ONCE, Stop date: 10/31/18 11:34:00 CDT Inactive 10/31/2018 [facility] rocuronium (ANES) Route: IV, Drug form: INJ, ONCE, Stop date: 10/31/18 11:14:00 CDT Inactive 10/31/2018 [facility] propofol (ANES) Route: IV, Drug form: INJ, ONCE, Stop date: 10/31/18 11:14:00 CDT Inactive 10/31/2018 [facility] midazolam (ANES) Route: IV, Drug form: SOLN, ONCE, Stop date: 10/31/18 11:14:00 CDT Inactive 10/31/2018 [facility] lidocaine (ANES) Route: IV, Drug form: INJ, ONCE, Stop date: 10/31/18 11:14:00 CDT Inactive 10/31/2018 [facility] fentaNYL (ANES) Route: IV, Drug form: INJ, ONCE, Stop date: 10/31/18 11:14:00 CDT Inactive 10/31/2018 [facility] dexamethasone (ANES) Route: IV, Drug form: INJ, ONCE, Stop date: 10/31/18 11:14:00 CDT Inactive 10/31/2018 [facility] ePHEDrine (ANES) Route: IV, Drug form: INJ, ONCE, Stop date: 10/31/18 11:14:00 CDT Inactive 10/31/2018 [facility] norepinephrine (ANES) Route: IV, Drug form: INJ, ONCE, Stop date: 10/31/18 11:14:00 CDT Inactive 10/31/2018 [facility] ceFAZolin (ANES) Route: IV, Drug form: INJ, ONCE, Stop date: 10/31/18 11:08:00 CDT Inactive 10/31/2018 [facility] phenylephrine (ANES) Route: IV, Drug form: INJ, ONCE, Stop date: 10/31/18 11:08:00 CDT Inactive 10/31/2018 [facility] glycopyrrolate (ANES) Route: IV, Drug form: INJ, ONCE, Stop date: 10/31/18 11:08:00 CDT Inactive 10/31/2018 [facility] Sodium Chloride 0.9% (titrate) 250 mL 250 mL, Rate: To prime line and flush remaining blood products., Dosing Weight 103.009, kg, Route: IV, Total Volume: 250, Priority: Routine, Start Date: 10/31/18 11:03:00 CDT, Duration: 30 day, Stop date: 11/30/18 11:02:00 CDT, Replace Every: 24 hr Inactive 10/31/2018 [facility] Labetalol 10 mg, 2 mL, Route: IVP, Drug form: INJ, Q5Min, Dosing Weight 103.009, kg, PRN Elevated BP, Start date: 10/31/18 11:03:00 CDT, Duration: 5 doses or times, Stop date: Limited # of times Inactive 10/31/2018 [facility] Ondansetron 4 mg, 2 mL, Route: IVP, Drug form: INJ, ONCE, Dosing Weight 103.009, kg, PRN Nausea & Vomiting, Start date: 10/31/18 11:03:00 CDTNotes: (Same as: Zofran) MEDICATION WASTE Product Size: 4 mg Product Wasted: ___ mg Inactive 10/31/2018 [facility] Naloxone 0.4 mg, 1 mL, Route: IVP, Drug form: INJ, Q2MIN, Dosing Weight 103.009, kg, PRN Narcotic Reversal, Start date: 10/31/18 11:03:00 CDT, Duration: 8 doses or times, Stop date: Limited # of timesNotes: Same as Narcan Inactive 10/31/2018 [facility] Flumazenil 0.2 mg, 2 mL, Route: IVP, Drug form: INJ, PRN, Dosing Weight 103.009, kg, PRN Benzodiazepine Reversal, Initial dose, Start date: 10/31/18 11:03:00 CDT, Duration: 30 day, Stop date: 11/30/18 11:02:00 CDTNotes: (Same as: Romazicon) Inactive 10/31/2018 [facility] Hydromorphone 0.5 mg, 0.25 mL, Route: IVP, Drug form: INJ, Q5Min, Dosing Weight 103.009, kg, PRN Pain Score 7-10, Start date: 10/31/18 11:03:00 CDT, Duration: 4 doses or times, Stop date: Limited # of timesNotes: Same as Dilaudid Inactive 10/31/2018 [facility] Oxycodone 5 mg, 1 tab, Route: PO, Drug form: TAB, Q4H, Dosing Weight 103.009, kg, PRN Pain Score 4-6, Start date: 10/31/18 11:03:00 CDT, Duration: 30 day, Stop date: 11/30/18 11:02:00 CDTNotes: (Same as: Roxic odone) Inactive 10/31/2018 [facility] Acetaminophen 1,000 mg, 2 tab, Route: PO, Drug form: TAB, ONCE, Dosing Weight 103.009, kg, PRN Pain Score 1-3, Start date: 10/31/18 11:03:00 CDTNotes: Max acetaminophen 4000 mg/day (4 gm/day). (Same as: Tylenol Extra Strength) Inactive 10/31/2018 [facility] Lactated Ringers Injection IV (ANES) 1000 mL Route: IV, Total Volume: 1,000, Start date: 10/31/18 9:55:00 CDT, Stop date: 10/31/18 10:55:00 CDT Inactive 10/31/2018 [facility] atorvastatin 20 mg, 1 tab, Route: PO, Drug form: TAB, Bedtime, Dosing Weight 103.009, kg, Start date: 10/30/18 21:00:00 CDT, Duration: 30 day, Stop date: 11/28/18 21:00:00 CDTNotes: (Same As: Lipitor) No Longer Active 10/31/2018 [facility] Cubicin + Sodium Chloride 0.9% IV 100 mL 600 mg, Route: IVPB, Daily, Start date: 10/30/18 10:00:00 CDT, Duration: 30 day, Stop date: 11/28/18 21:00:00 CDT, ABX Indication: Bone/Joint InfectionNotes: (Same As: Cubicin) Restricted use to Infectious Disease Physicians. For adult patients only: Round to nearest 50 mg per Medical Staff approval MEDICATION WASTE Product Size: 500 mg Product Wasted: ___ mg No Longer Active 10/30/2018 [facility] torsemide 20 mg, 1 tab, Route: PO, Drug form: TAB, Daily, Dosing Weight 103.009, kg, Start date: 10/30/18 9:00:00 CDT, Duration: 30 day, Stop date: 11/28/18 9:00:00 CDTNotes: (Same As: Demadex) No Longer Active 10/30/2018 [facility] Lyrica 25 mg, 1 cap, Route: PO, Drug form: CAP, Daily, Dosing Weight 103.009, kg, Start date: 10/30/18 9:00:00 CDT, Duration: 30 day, Stop date: 11/28/18 9:00:00 CDTNotes: (Same as: Lyrica) No Longer Active 10/30/2018 [facility] tamsulosin 0.4 mg, 1 cap, Route: PO, Drug form: CAP, Daily, Dosing Weight 103.009, kg, Start date: 10/30/18 9:00:00 CDT, Duration: 30 day, Stop date: 11/28/18 9:00:00 CDTNotes: (Same As: Flomax) "Do Not Crush" No Longer Active 10/30/2018 [facility] NIFEdipine 90 mg oral tablet, extended release 90 mg, 1 tab, Route: PO, Drug form: ERTAB, Daily, Dosing Weight 103.009, kg, Start date: 10/30/18 9:00:00 CDT, Duration: 30 day, Stop date: 11/28/18 9:00:00 CDTNotes: (Same as: Adalat CC,Procardia XL) "Do Not Crush" "Avoid grapefruit and grapefruit juice" No Longer Active 10/30/2018 [facility] metoprolol tartrate 50 mg, 1 tab, Route: PO, Drug form: TAB, Q12H, Dosing Weight 103.009, kg, Start date: 10/30/18 9:00:00 CDT, Duration: 30 day, Stop date: 11/28/18 21:00:00 CDTNotes: (Same as: Lopressor) No Longer Active 10/30/2018 [facility] duloxetine 60 mg, 1 cap, Route: PO, Drug form: DRC, Daily, Dosing Weight 103.009, kg, Start date: 10/30/18 9:00:00 CDT, Duration: 30 day, Stop date: 11/28/18 9:00:00 CDTNotes: (Same as: Cymbalta) (Do Not Crush) No Longer Active 10/30/2018 [facility] Allopurinol 300 mg, 1 tab, Route: PO, Drug form: TAB, Daily, Dosing Weight 103.009, kg, Start date: 10/30/18 9:00:00 CDT, Duration: 30 day, Stop date: 11/28/18 9:00:00 CDTNotes: (Same as: Zyloprim) No Longer Active 10/30/2018 [facility] Daptomycin 412.036 mg, Route: IV, Q48H, Dosing Weight 103.009, kg, Start date: 10/30/18 9:00:00 CDT, Duration: 30 day, Stop date: 11/27/18 9:00:00 CDT, ABX Indication: Bone/Joint Infection Inactive 10/30/2018 [facility] Aspirin 81 mg, 1 tab, Route: PO, Drug form: ECTAB, Daily, Dosing Weight 103.009, kg, Start date: 10/30/18 9:00:00 CDT, Duration: 30 day, Stop date: 11/28/18 9:00:00 CDTNotes: Do not crush or chew. (Same As: Ecotrin) No Longer Active 10/30/2018 [facility] Insulin Glargine 30 unit, 0.3 mL, Route: SUB-Q, Drug form: SOLN, QAM (Insulin), Dosing Weight 103.009, kg, Start date: 10/30/18 7:30:00 CDT, Duration: 30 day, Stop date: 11/28/18 7:30:00 CDT No Longer Active 10/30/2018 [facility] meropenem 500 mg, Route: IVPB, Drug form: PDR/INJ, [id number], Dosing Weight 103.009, kg, Extended infusion, infuse over 3 hours, Start date: 10/30/18 5:00:00 CDT, Stop date: 11/28/18 22:00:00 CDT, ABX Indication: Tanner ne/Joint InfectionNotes: Same as Merrem MEDICATION WASTE Product Size: 500 mg Product Wasted: ___ mg No Longer Active 10/30/2018 [facility] Acetaminophen 325 MG / Hydrocodone Bitartrate 10 MG Oral Tablet 1 tab, Route: PO, Drug Form: TAB, Dosing Weight 103.009, kg, QID, PRN Pain Score 7-10, Start date: 10/30/18 4:12:00 CDT, Duration: 30 day, Stop date: 11/29/18 4:11:00 CDTNotes: Do not exceed 4gm/day of acetaminophen. (Same as: [place] 325/10) No Longer Active 10/30/2018 [facility] Insulin Lispro 2 unit, 0.02 mL, Route: SUB-Q, Drug form: SOLN, TID-Before Meals, Dosing Weight 103.009, kg, PRN Blood Glucose Results, Start date: 10/30/18 3:43:00 CDT, Duration: 30 day, Stop date: 11/29/18 3:42:00 CDTNotes: (Same as: Humalog) Roll in palms of hands gently; Do not shake vigorously. WASTE: F/P - Black; E - Municipal Trash Bin Stable for 28 days at room temperature. Expires in days from Date No Longer Active 10/30/2018 [facility] Glucagon 1 mg, Route: IM, Drug form: PDR/INJ, PRN, Dosing Weight 103.009, kg, PRN Blood Glucose Results, Start date: 10/30/18 3:43:00 CDT, Duration: 30 day, Stop date: 11/29/18 3:42:00 CDT No Longer Active 10/30/2018 [facility] Dextrose 50% Syringe 25 gm, 50 mL, Route: IVP, Drug Form: INJ, Dosing Weight 103.009, kg, PRN, PRN Blood Glucose Results, Start date: 10/30/18 3:43:00 CDT, Duration: 30 day, Stop date: 11/29/18 3:42:00 CDT No Longer Active 10/30/2018 [facility] Daptomycin 4 mg/kg, IV, Q24H, 0 Refill(s) No Longer Active 10/30/2018 [facility] meropenem IV, Q8H, 0 Refill(s) No Longer Active 10/30/2018 [facility] metoprolol tartrate 50 mg oral tablet 50 mg=1 tab, PO, BID, # 180 tab, 0 Refill(s) Active 10/30/2018 [facility] atorvastatin 20 mg oral tablet 20 mg=1 tab, PO, Bedtime, # 30 tab, 0 Refill(s) Active 10/30/2018 [facility] NIFEdipine 90 mg oral tablet, extended release 90 mg=1 tab, PO, Daily, .., # 90 tab, 3 Refill(s), Pharmacy: [facility] [place] [facility] Acetaminophen 325 MG / Hydrocodone Bitartrate 10 MG Oral Tablet 1 tab, PO, QID, PRN Pain, # 120 tab, 0 Refill(s), given to patient Active 09/08/2018 [facility] Acetaminophen 300 MG / Codeine Phosphate 60 MG Oral Tablet [Tylenol with Codeine #4] 1 tab, PO, QID, PRN pain, # 120 tab, 0 Refill(s) No Longer Active 08/11/2018 [facility] Acetaminophen 300 MG / Codeine Phosphate 30 MG Oral Tablet [Tylenol with Codeine #3] 2 tab, PO, Q4H, PRN Pain, X 7 day, # 84 tab, 0 Refill(s) Active 08/06/2018 [facility] lisinopril 40 mg oral tablet 40 mg=1 tab, PO, Daily, # 90 tab, 3 Refill(s) Active 08/06/2018 [facility] Vancomycin 1,000 mg, IVPB, Q24H, 0 Refill(s) Active 08/06/2018 [facility] NIFEdipine 90 mg oral tablet, extended release 90 mg=1 tab, PO, Daily, .., # 30 tab, 0 Refill(s) Active 08/06/2018 [facility] Clotrimazole 10 MG/ML Topical Cream 1 appl, TOP, BID, X 30 day, # 15 gm, 0 Refill(s) Active 08/06/2018 [facility] carvedilol 25 mg oral tablet 25 mg=1 tab, PO, BID, # 60 tab, 0 Refill(s) Active 08/06/2018 [facility] apixaban 5 mg oral tablet 5 mg=1 tab, PO, Q12H, # 60 tab, 0 Refill(s) Active 08/06/2018 [facility] allopurinol 300 mg oral tablet 300 mg=1 tab, PO, Daily, # 30 tab, 0 Refill(s) Active 08/06/2018 [facility] DULoxetine 60 mg oral delayed release capsule 60 mg=1 cap, PO, Daily, 0 Refill(s) Active 08/06/2018 [facility] Saline Flush 0.9% 10 mL, Route: IVP, Drug Form: INJ, Dosing Weight 115.2, kg, Q8H, Start date: 08/06/18 16:00:00 ANIMAL NUTRITION CONSULTANT, Duration: 30 day, Stop date: 09/05/18 8:00:00 CDTNotes: (Same as: BD Posiflush) Inactive 08/06/2018 [facility] Lidocaine Hydrochloride 10 MG/ML Injectable Solution 50 mg, 5 mL, Route: INTRADERM, Drug Form: INJ, Dosing Weight 115.2, kg, ONCALL, For PICC line insertion., Start date: 08/06/18 13:00:00 ANIMAL NUTRITION CONSULTANT, Duration: 1 day, Stop date: 08/07/18 12:59:00 CSTNotes: (Same as: Xylocaine) Inactive 08/06/2018 [facility] Saline Flush 0.9% 10 mL, Route: IVP, Drug Form: INJ, Dosing Weight 115.2, kg, PRN, PRN Line Flush, Start date: 08/06/18 12:59:00 ANIMAL NUTRITION CONSULTANT, Duration: 30 day, Stop date: 09/05/18 13:58:00 CDTNotes: (Same as: BD Posiflush) Inactive 08/06/2018 [facility] Metolazone 5 MG Oral Tablet =1 tab, PO, Daily, # 90 ea, Pharmacy: [facility] [place] Inactive 08/06/2018 [facility] Vancomycin 1,000 mg, Route: IVPB, Drug form: INJ, [id number], Dosing Weight 115.2, kg, Start date: 08/04/18 18:00:00 ANIMAL NUTRITION CONSULTANT, Duration: 20 day, Stop date: 08/24/18 6:00:00 ANIMAL NUTRITION CONSULTANT, ABX Indication: Bone/Joint InfectionNotes: TIME CRITICAL MEDICATION (Same As: Vancocin) Infusion rate 2001 mg: infuse over 2.5 hours For adult patients only: Round to nearest 250 mg per Medical Staff approval MEDICATION WASTE Product Size: 1000 mg Product Wasted: ___ mg No Longer Active 08/05/2018 [facility] NIFEdipine 60 mg oral tablet, extended release 90 mg, 1 tab, Route: PO, Drug form: ERTAB, Daily, Dosing Weight 115.2, kg, Start date: 08/04/18 9:00:00 ANIMAL NUTRITION CONSULTANT, Duration: 30 day, Stop date: 09/02/18 9:00:00 CDT, ..Notes: (Same as: Adalat CC,Procardia XL) "Do Not Crush" "Avoid grapefruit and grapefruit juice" No Longer Active 08/04/2018 [facility] Clonidine Hydrochloride 0.1 MG Oral Tablet 0.1 mg, 1 tab, Route: PO, Drug form: TAB, Daily, Dosing Weight 115.2, kg, Start date: 08/04/18 9:00:00 ANIMAL NUTRITION CONSULTANT, Stop date: 09/01/18 9:00:00 CDTNotes: (Same As: Catapres) No Longer Active 08/04/2018 [facility] Saline Flush 0.9% 10 mL, Route: IVP, Drug Form: INJ, Dosing Weight 115.2, kg, Q8H, Start date: 08/04/18 8:00:00 ANIMAL NUTRITION CONSULTANT, Duration: 30 day, Stop date: 09/03/18 0:00:00 CDTNotes: Same as: BD Posiflush Sterile No Longer Active 08/04/2018 [facility] Lidocaine Hydrochloride 10 MG/ML Injectable Solution 5 mL, Route: INTRADERM, Drug Form: INJ, Dosing Weight 115.2, kg, ONCALL, For PICC line insertion., Start date: 08/04/18 7:00:00 ANIMAL NUTRITION CONSULTANT, Duration: 1 day, Stop date: 08/05/18 6:59:00 CSTNotes: Preservative free. (Same as: Xylocaine MPF) No Longer Active 08/04/2018 [facility] Saline Flush 0.9% 10 mL, Route: IVP, Drug Form: INJ, Dosing Weight 115.2, kg, PRN, PRN Line Flush, Start date: 08/04/18 6:52:00 ANIMAL NUTRITION CONSULTANT, Duration: 30 day, Stop date: 09/03/18 7:51:00 CDTNotes: Same as: BD Posiflush Sterile No Longer Active 08/04/2018 [facility] NIFEdipine 60 mg oral tablet, extended release 60 mg, 1 tab, Route: PO, Drug form: ERTAB, Daily, Dosing Weight 115.2, kg, Start date: 08/03/18 9:00:00 ANIMAL NUTRITION CONSULTANT, Duration: 30 day, Stop date: 09/01/18 9:00:00 CDT, ..Notes: (Same as: Adalat CC, Procardia XL) Give on empty stomach. Take 1 hour before or 2 hours after meal; "Avoid grapefruit and grapefruit juice". Do not crush No Longer Active 08/03/2018 [facility] Clonidine Hydrochloride 0.1 MG Oral Tablet 0.1 mg, 1 tab, Route: PO, Drug form: TAB, Q12H, Dosing Weight 115.2, kg, Start date: 08/02/18 21:00:00 ANIMAL NUTRITION CONSULTANT, Duration: 30 day, Stop date: 09/01/18 9:00:00 CDTNotes: (Same As: Catapres) No Longer Active 08/03/2018 [facility] NIFEdipine 30 mg oral tablet, extended release 30 mg, 1 tab, Route: PO, Drug form: ERTAB, Daily, Dosing Weight 115.2, kg, Start date: 08/02/18 11:00:00 ANIMAL NUTRITION CONSULTANT, Duration: 30 day, Stop date: 09/01/18 9:00:00 CDTNotes: (Same as: Adalat CC, Procardia XL) Give on empty stomach. Take 1 hour before or 2 hours after meal; "Avoid grapefruit and grapefruit juice". Do not crush No Longer Active 08/02/2018 [facility] Eliquis 5 mg, 1 tab, Route: PO, Drug form: TAB, Q12H, Dosing Weight 115.2, kg, Start date: 08/02/18 9:00:00 ANIMAL NUTRITION CONSULTANT, Duration: 30 day, Stop date: 08/31/18 21:00:00 CDTNotes: Same as: Eliquis No Longer Active 08/02/2018 [facility] vancomycin + Sodium Chloride 0.9% IV 250 mL 1.25 gm, Route: IVPB, [id number], osteomyelitis, Start date: 08/01/18 20:00:00 ANIMAL NUTRITION CONSULTANT, Duration: 30 day, Stop date: 08/31/18 10:30:00 CDT, ABX Indication: Other (specify in Comments)Notes: TIME CRITICAL MEDICATION (Same As: Vancocin) Infusion rate 2001 mg: infuse over 2.5 hours For adult patients only: Round to nearest 250 mg per Medical Staff approval MEDICATION WASTE Product Size: 1000 mg Product Wasted: ___ mg No Longer Active 08/02/2018 [facility] Flagyl 500 mg, 100 mL, Route: IVPB, Drug form: INJ, [id number], Dosing Weight 115.2, kg, Start date: 08/01/18 16:00:00 ANIMAL NUTRITION CONSULTANT, Duration: 14 day, Stop date: 08/15/18 8:00:00 ANIMAL NUTRITION CONSULTANT, ABX Indication: Bone/Joint Infection No Longer Active 08/01/2018 [facility] cefepime 1 gm, Route: IVP, Drug form: INJ, [id number], Dosing Weight 115.2, kg, Start date: 08/01/18 16:00:00 ANIMAL NUTRITION CONSULTANT, Duration: 5 day, Stop date: 08/06/18 8:00:00 ANIMAL NUTRITION CONSULTANT, ABX Indication: Bone/Joint InfectionNotes: (Same As: Maxipime) MEDICATION WASTE Product Size: 1000 mg Product Wasted: ___ mg No Longer Active 08/01/2018 [facility] carvedilol 25 mg, 1 tab, Route: PO, Drug form: TAB, BID, Dosing Weight 118.182, kg, Start date: 07/31/18 21:00:00 ANIMAL NUTRITION CONSULTANT, Duration: 30 day, Stop date: 08/30/18 9:00:00 CSTNotes: Give with food. (Same As: Coreg) No Longer Active 08/01/2018 [facility] Clotrimazole 10 MG/ML Topical Cream 1 appl, Route: TOP, Drug Form: CRM, Dosing Weight 115.2, kg, BID, Start date: 07/30/18 17:00:00 ANIMAL NUTRITION CONSULTANT, Duration: 30 day, Stop date: 08/29/18 9:00:00 CSTNotes: For external use only. (Same As: Lotrimin AF, Mycelex) No Longer Active 07/30/2018 [facility] cefepime 1 gm, Route: IV, Drug form: INJ, [id number], Dosing Weight 115.2, kg, Start date: 07/30/18 12:00:00 ANIMAL NUTRITION CONSULTANT, Duration: 30 day, Stop date: 08/29/18 4:00:00 ANIMAL NUTRITION CONSULTANT, ABX Indication: Bone/Joint InfectionNotes: (Same As: Maxipime) MEDICATION WASTE Product Size: 1000 mg Product Wasted: ___ mg Inactive 07/30/2018 [facility] heparin Route: IVP, PRN, 4,000 unit, 4 mL, Drug form: INJ, PRN, Heparin Protocol, Start date: 07/30/18 11:48:00 ANIMAL NUTRITION CONSULTANT Stop date: 08/29/18 11:47:00 ANIMAL NUTRITION CONSULTANT, 30 day No Longer Active 07/30/2018 [facility] Lidocaine 12 mL, Route: IV, ONCE, Dosing Weight 115.2, kg, Start date: 07/30/18 9:56:00 ANIMAL NUTRITION CONSULTANT, Stop date: 07/30/18 9:56:00 ANIMAL NUTRITION CONSULTANT Inactive 07/30/2018 [facility] Midazolam 1 mg, Route: IV, ONCE, Dosing Weight 115.2, kg, Start date: 07/30/18 9:54:00 ANIMAL NUTRITION CONSULTANT, Stop date: 07/30/18 9:54:00 ANIMAL NUTRITION CONSULTANT Inactive 07/30/2018 [facility] Fentanyl 50 microgram, Route: IV, ONCE, Dosing Weight 115.2, kg, Start date: 07/30/18 9:54:00 ANIMAL NUTRITION CONSULTANT, Stop date: 07/30/18 9:54:00 ANIMAL NUTRITION CONSULTANT Inactive 07/30/2018 [facility] gabapentin 300 MG Oral Capsule 300 mg, Route: PO, Drug form: CAP, Q12H, Dosing Weight 115.2, kg, (CrCl 30 - 59 ml/min), Start date: 07/30/18 9:00:00 ANIMAL NUTRITION CONSULTANT, Duration: 30 day, Stop date: 08/28/18 21:00:00 ANIMAL NUTRITION CONSULTANT Inactive 07/30/2018 [facility] Vancomycin 1,000 mg, Route: IVPB, Drug form: INJ, [id number], Dosing Weight 115.2, kg, Start date: 07/30/18 9:00:00 ANIMAL NUTRITION CONSULTANT, Duration: 30 day, Stop date: 08/28/18 21:00:00 ANIMAL NUTRITION CONSULTANT, ABX Indication: Bone/Joint InfectionNotes: TIME CRITICAL MEDICATION (Same As: Vancocin) Infusion rate 2001 mg: infuse over 2.5 hours For adult patients only: Round to nearest 250 mg per Medical Staff approval MEDICATION WASTE Product Size: 1000 mg Product Wasted: ___ mg Inactive 07/30/2018 [facility] Acetaminophen 325 MG / Hydrocodone Bitartrate 10 MG Oral Tablet [[place] 10/325] 1 tab, Route: PO, Drug Form: TAB, Dosing Weight 115.2, kg, Q6H, PRN Pain Score 6-10, Start date: 07/30/18 8:44:00 ANIMAL NUTRITION CONSULTANT, Duration: 30 day, Stop date: 08/29/18 8:43:00 CSTNotes: Do not exceed 4gm/day of acetaminophen. (Same as: [place] 325/10) No Longer Active 07/30/2018 [facility] Acetaminophen 1,000 mg, 2 tab, Route: PO, Drug form: TAB, Q6H, Dosing Weight 115.2, kg, Start date: 07/30/18 6:00:00 ANIMAL NUTRITION CONSULTANT, Duration: 30 day, Stop date: 08/29/18 0:00:00 CSTNotes: Max acetaminophen 4000 mg/day (4 gm /day). (Same as: Tylenol Extra Strength) Inactive 07/30/2018 [facility] cefepime 2 gm, Route: IV, Drug form: INJ, [id number], Dosing Weight 115.2, kg, Priority: NOW, Start date: 07/30/18 3:47:00 ANIMAL NUTRITION CONSULTANT, Duration: 30 day, Stop date: 08/28/18 16:00:00 ANIMAL NUTRITION CONSULTANT, ABX Indication: Bone/Joint Infecti onNotes: (Same as: Maxipime) MEDICATION WASTE Product Size: 2000 mg Product Wasted: ___ mg Inactive 07/30/2018 [facility] Flagyl 500 mg, 100 mL, Route: IVPB, Drug form: INJ, [id number], Dosing Weight 115.2, kg, Priority: NOW, Start date: 07/30/18 3:47:00 ANIMAL NUTRITION CONSULTANT, Duration: 30 day, Stop date: 08/28/18 19:47:00 ANIMAL NUTRITION CONSULTANT, ABX Indication: Bone/Joint InfectionNotes: (Same as: Flagyl) Avoid alcohol. Inactive 07/30/2018 [facility] rosuvastatin 5 mg, 1 tab, Route: PO, Drug form: TAB, Bedtime, Dosing Weight 118.182, kg, Start date: 07/29/18 21:00:00 ANIMAL NUTRITION CONSULTANT, Duration: 30 day, Stop date: 08/27/18 21:00:00 CSTNotes: Same as Crestor No Longer Active 07/30/2018 [facility] heparin 25,000 unit [18 unit/kg/hr] + Premix Diluent Sodium Chloride 0.45% 500 mL 500 mL, Rate: 36.32 ml/hr, Infuse over: 13.8 hr, Route: IV, Dosing Weight 100.9 kg, Total Volume: 500, Start date: 07/29/18 19:00:00 ANIMAL NUTRITION CONSULTANT, Duration: 30 day, Stop date: 08/28/18 18:59:00 ANIMAL NUTRITION CONSULTANT, 2.36, m2 No Longer Active 07/30/2018 [facility] Lactated Ringers IV 1,000 mL 1,000 mL, Rate: 150 ml/hr, Infuse over: 6.7 hr, Route: IV, Dosing Weight 115.2 kg, Total Volume: 1,000, Start date: 07/29/18 19:00:00 ANIMAL NUTRITION CONSULTANT, Duration: 30 day, Stop date: 08/28/18 18:59:00 ANIMAL NUTRITION CONSULTANT, 2.52, m2 No Longer Active 07/30/2018 [facility] heparin additive 25,000 unit [18 unit/kg/hr] + Premix Diluent Dextrose 5% 500 mL 500 mL, Rate: 41.47 ml/hr, Infuse over: 12.1 hr, Route: IV, Dosing Weight 115.2 kg, Total Volume: 500 mL, Start date: 07/29/18 19:00:00 ANIMAL NUTRITION CONSULTANT, Duration: 30 day, Stop date: 08/28/18 18:59:00 ANIMAL NUTRITION CONSULTANT, 2.52, m2 Inactive 07/30/2018 [facility] Heparin 80 unit/kg Bolus (Heparin Dosing Weight) Route: IVP, PRN, 8,000 unit, 8 mL, Drug form: INJ, PRN, Heparin Protocol, Start date: 07/29/18 19:00:00 ANIMAL NUTRITION CONSULTANT Stop date: 08/28/18 18:59:00 ANIMAL NUTRITION CONSULTANT, 30 day No Longer Active 07/30/2018 [facility] Heparin 40 unit/kg Bolus (Heparin Dosing Weight) Route: IVP, PRN, 4,000 unit, 4 mL, Drug form: INJ, PRN, Heparin Protocol, Start date: 07/29/18 19:00:00 ANIMAL NUTRITION CONSULTANT Stop date: 08/28/18 18:59:00 ANIMAL NUTRITION CONSULTANT, 30 day No Longer Active 07/30/2018 [facility] Allopurinol 300 mg, 1 tab, Route: PO, Drug form: TAB, Daily, Dosing Weight 118.182, kg, Start date: 07/29/18 9:00:00 ANIMAL NUTRITION CONSULTANT, Duration: 30 day, Stop date: 08/27/18 9:00:00 CSTNotes: (Same as: Zyloprim) No Longer Active 07/29/2018 [facility] Lisinopril 40 mg, 2 tab, Route: PO, Drug form: TAB, Daily, Dosing Weight 118.182, kg, Start date: 07/29/18 9:00:00 ANIMAL NUTRITION CONSULTANT, Duration: 30 day, Stop date: 08/27/18 9:00:00 CSTNotes: (Same as: Prinivil, Zestril) No Longer Active 07/29/2018 [facility] carvedilol 25 mg, 1 tab, Route: PO, Drug form: TAB, Daily, Dosing Weight 118.182, kg, Start date: 07/29/18 9:00:00 ANIMAL NUTRITION CONSULTANT, Duration: 30 day, Stop date: 08/27/18 9:00:00 CSTNotes: Give with food. (Same As: Coreg) No Longer Active 07/29/2018 [facility] Metolazone 5 MG Oral Tablet 5 mg, 1 tab, Route: PO, Drug form: TAB, Daily, Dosing Weight 118.182, kg, Start date: 07/29/18 9:00:00 ANIMAL NUTRITION CONSULTANT, Duration: 30 day, Stop date: 08/27/18 9:00:00 CSTNotes: (Same as: Zaroxolyn) Inactive 07/29/2018 [facility] Eliquis 5 mg, 1 tab, Route: PO, Drug form: TAB, BID, Dosing Weight 118.182, kg, Start date: 07/29/18 9:00:00 ANIMAL NUTRITION CONSULTANT, Duration: 30 day, Stop date: 08/27/18 17:00:00 CSTNotes: Same as: Eliquis Inactive 07/29/2018 [facility] duloxetine 60 mg, 1 cap, Route: PO, Drug form: DRC, Daily, Dosing Weight 118.182, kg, Start date: 07/29/18 9:00:00 ANIMAL NUTRITION CONSULTANT, Duration: 30 day, Stop date: 08/27/18 9:00:00 CSTNotes: (Same as: Cymbalta) (Do Not Crush) No Longer Active 07/29/2018 [facility] torsemide 20 mg, 1 tab, Route: PO, Drug form: TAB, BID, Dosing Weight 118.182, kg, Start date: 07/29/18 9:00:00 ANIMAL NUTRITION CONSULTANT, Duration: 30 day, Stop date: 08/27/18 17:00:00 CSTNotes: (Same As: Demadex) Inactive 07/29/2018 [facility] tamsulosin 0.4 mg, 1 cap, Route: PO, Drug form: CAP, Daily, Dosing Weight 118.182, kg, Start date: 07/29/18 9:00:00 ANIMAL NUTRITION CONSULTANT, Duration: 30 day, Stop date: 08/27/18 9:00:00 CSTNotes: (Same As: Flomax) "Do Not Crush" No Longer Active 07/29/2018 [facility] Lyrica 25 mg, 1 cap, Route: PO, Drug form: CAP, Daily, Dosing Weight 118.182, kg, Start date: 07/29/18 9:00:00 ANIMAL NUTRITION CONSULTANT, Duration: 30 day, Stop date: 08/27/18 9:00:00 CSTNotes: (Same as: Lyrica) No Longer Active 07/29/2018 [facility] potassium chloride 20 mEq oral tablet, extended release 20 mEq, 1 tab, Route: PO, Drug form: ERTAB, Daily, Dosing Weight 118.182, kg, Start date: 07/29/18 9:00:00 ANIMAL NUTRITION CONSULTANT, Duration: 30 day, Stop date: 08/27/18 9:00:00 CSTNotes: (Same as: K-Dur 20) "Do Not Crush" Give with food and full glass of water For patients unable to swallow tablet, dissolve in one half glass of water. Allow about 2 minutes for the tablets to disintegrate. Stir before giving to prepare slurry and administer. Please exclude Patients with feeding tube less than 14 [place] (Dobhoff, J-tube etc) and pediatric and patients. No Longer Active 07/29/2018 [facility] Clonidine Hydrochloride 0.1 MG Oral Tablet 0.1 mg, 1 tab, Route: PO, Drug form: TAB, TID, Dosing Weight 118.182, kg, Start date: 07/29/18 9:00:00 ANIMAL NUTRITION CONSULTANT, Duration: 30 day, Stop date: 08/27/18 17:00:00 CSTNotes: (Same As: Catapres) No Longer Active 07/29/2018 [facility] Insulin Lispro 3 unit, 0.03 mL, Route: SUB-Q, Drug form: SOLN, TID-Before Meals, Dosing Weight 118.182, kg, PRN Blood Glucose Results, Start date: 07/28/18 22:55:00 ANIMAL NUTRITION CONSULTANT, Duration: 30 day, Stop date: 08/27/18 22:54: 00 CSTNotes: (Same as: Humalog ) Roll in palms of hands gently; Do not shake `vigorously. "Single Patient Use Only " WASTE: F/P - Black; E - Municipal Trash Bin Stable for 28 days at room temperature. Expires in days from Date No Longer Active 07/29/2018 [facility] Glucagon 1 mg, Route: IM, Drug form: PDR/INJ, PRN, Dosing Weight 118.182, kg, PRN Blood Glucose Results, Start date: 07/28/18 22:55:00 ANIMAL NUTRITION CONSULTANT, Duration: 30 day, Stop date: 08/27/18 22:54:00 ANIMAL NUTRITION CONSULTANT No Longer Active 07/29/2018 [facility] Dextrose 50% Syringe 12.5 gm, 25 mL, Route: IVP, Drug Form: INJ, Dosing Weight 118.182, kg, PRN, PRN Blood Glucose Results, Start date: 07/28/18 22:55:00 ANIMAL NUTRITION CONSULTANT, Duration: 30 day, Stop date: 08/27/18 22:54:00 ANIMAL NUTRITION CONSULTANT No Longer Active 07/29/2018 [facility] tramadol hydrochloride 50 MG Oral Tablet 100 mg, 2 tab, Route: PO, Drug form: TAB, BID, Dosing Weight 118.182, kg, PRN Pain Score 1-5, Start date: 07/28/18 21:47:00 ANIMAL NUTRITION CONSULTANT, Duration: 30 day, Stop date: 08/27/18 21:46:00 CSTNotes: Not to exceed 400mg/day. (Same As: Ultram) No Longer Active 07/29/2018 [facility] Dilaudid 0.5 mg, Route: IV, ONCE, Dosing Weight 118.182, kg, Start date: 07/28/18 21:44:00 ANIMAL NUTRITION CONSULTANT, Stop date: 07/28/18 21:44:00 ANIMAL NUTRITION CONSULTANT Inactive 07/29/2018 [facility] Acetaminophen 650 mg, 2 tab, Route: PO, Drug form: TAB, Q4H, Dosing Weight 118.182, kg, PRN For Temp > 100.4 F, Start date: 07/28/18 21:35:00 ANIMAL NUTRITION CONSULTANT, Duration: 30 day, Stop date: 08/27/18 21:34:00 CSTNotes: Do not ex ceed 4 gm/day. (Same as: Tylenol) No Longer Active 07/29/2018 [facility] Dextrose 50% Syringe 12.5 gm, 25 mL, Route: IVP, Drug Form: INJ, Dosing Weight 118.182, kg, PRN, PRN Blood Glucose Results, Start date: 07/28/18 21:35:00 ANIMAL NUTRITION CONSULTANT, Duration: 30 day, Stop date: 08/27/18 21:34:00 ANIMAL NUTRITION CONSULTANT Inactive 07/29/2018 [facility] Glucagon 1 mg, Route: IM, Drug form: PDR/INJ, PRN, Dosing Weight 118.182, kg, PRN Blood Glucose Results, Start date: 07/28/18 21:35:00 ANIMAL NUTRITION CONSULTANT, Duration: 30 day, Stop date: 08/27/18 21:34:00 ANIMAL NUTRITION CONSULTANT Inactive 07/29/2018 [facility] Flagyl 500 mg, 100 mL, Route: IVPB, Drug form: INJ, ONCE, Dosing Weight 118.182, kg, Start date: 07/28/18 20:12:00 ANIMAL NUTRITION CONSULTANT, Stop date: 07/28/18 20:12:00 ANIMAL NUTRITION CONSULTANT, ABX Indication: Bacteremia Inactive 07/29/2018 [facility] cefepime 1 gm, Route: IVP, Drug form: INJ, ONCE, Dosing Weight 118.182, kg, Start date: 07/28/18 20:12:00 ANIMAL NUTRITION CONSULTANT, Stop date: 07/28/18 20:12:00 ANIMAL NUTRITION CONSULTANT, ABX Indication: BacteremiaNotes: (Same As: Maxipime) MEDICAT ION WASTE Product Size: 1000 mg Product Wasted: ___ mg Inactive 07/29/2018 [facility] Vancomycin 1,500 mg, 250 mL, Route: IVPB, Drug form: INJ, ONCE, Dosing Weight 118.182, kg, Start date: 07/28/18 19:56:00 ANIMAL NUTRITION CONSULTANT, Stop date: 07/28/18 19:56:00 ANIMAL NUTRITION CONSULTANT, ABX Indication: BacteremiaNotes: TIME CRITICAL MEDICATION Same as: Vancocin-NS (premixed) Infusion rate 2001 mg: infuse over 2.5 hours Inactive 07/29/2018 [facility] Isolyte S PH-7.4 (Bolus) IV 500 mL, Route: IV, Drug form: SOLN, ONCE, Dosing Weight 118.182 kg, Start date: 07/28/18 19:53:00 ANIMAL NUTRITION CONSULTANT, Stop date: 07/28/18 19:53:00 CSTNotes: (Same as: Isolyte S PH7.4) Inactive 07/29/2018 [facility] Cephalexin 500 mg, 1 cap, Route: PO, Drug form: CAP, ONCE, Dosing Weight 118.182, kg, Priority: STAT, Start date: 07/28/18 19:34:00 ANIMAL NUTRITION CONSULTANT, Stop date: 07/28/18 19:34:00 CSTNotes: Take on empty stomach. (Same As: Keflex) Inactive 07/29/2018 [facility] Acetaminophen 325 MG / Hydrocodone Bitartrate 10 MG Oral Tablet 1 tab, PO, QID, PRN Pain, X 20 day, # 60 tab, 0 Refill(s), given to patient No Longer Active 07/08/[facility] rosuvastatin 5 mg oral tablet 5 mg=1 tab, PO, Bedtime, # 30 tab, 0 Refill(s) No Longer Active 07/08/2018 [facility] lisinopril 40 mg oral tablet 40 mg=1 tab, PO, Daily, # 90 tab, 3 Refill(s), Pharmacy: [facility] No Longer Active 06/13/2018 [facility] tramadol hydrochloride 50 MG Oral Tablet 50 mg=1 tab, PO, BID, PRN pain, # 180 tab, 0 Refill(s) No Longer Active 05/14/2018 [facility] potassium chloride 20 mEq oral tablet, extended release See Instructions, # 30 ea, Refill(s) 10, TAKE TWO (2) TABLET(S) BY MOUTH ONCE A DAY FOR FOUR DAYS. THEN DECREASE TO ONE(1) TABLET(S) BY MOUTH DAILY., Pharmacy: [facility] No Longer Active 02/13/2018 [facility] Iron 100 Plus 1 tab, PO, Daily, 0 Refill(s) Active 01/29/2018 [facility] lisinopril 40 mg oral tablet 40 mg=1 tab, PO, BID, 0 Refill(s) No Longer Active 01/29/2018 [facility] Humalog 25 unit, SUB-Q, TID-Before Meals, 0 Refill(s) Active 01/29/2018 [facility] torsemide 20 mg oral tablet See Instructions, # 180 ea, Refill(s) 1, TAKE ONE (1) TABLET(S) BY MOUTH TWICE A DAY., Pharmacy: [facility] Active 12/04/2017 [facility] pregabalin 25 MG Oral Capsule [Lyrica] 25 mg=1 cap, PO, Daily, # 30 cap, 5 Refill(s) Active 07/05/2017 [facility] pregabalin 25 MG Oral Capsule [Lyrica] 25 mg=1 cap, PO, Daily, # 30 cap, 0 Refill(s) Active 06/10/2017 [facility] apixaban 5 MG Oral Tablet [Eliquis] 5 mg=1 tab, PO, BID, # 60 tab, 5 Refill(s), Pharmacy: [facility] Active 06/03/2017 [facility] Acetaminophen 325 MG / Hydrocodone Bitartrate 7.5 MG Oral Tablet 1 tab, PO, QID, PRN Pain, # 120 tab, 0 Refill(s), given to patient Active 06/03/2017 [facility] pregabalin 25 MG Oral Capsule [Lyrica] 25 mg=1 cap, PO, Daily, # 30 cap, 0 Refill(s) Active 05/14/2017 [facility] Clonidine Hydrochloride 0.1 MG Oral Tablet See Instructions, TAKE ONE (1) TABLET(S) BY MOUTH THREE TIMES A DAY., # 90 ea, 4 Refill(s), Pharmacy: [facility] Active 05/13/2017 [facility] Clonidine Hydrochloride 0.1 MG Oral Tablet See Instructions, # 90 ea, Refill(s) 4, TAKE ONE (1) TABLET(S) BY MOUTH THREE TIMES A DAY., Pharmacy: [facility] Active 05/06/2017 [facility] 1.5 ML Insulin Glargine 300 UNT/ML Prefilled Syringe [Toujeo] 25 unit, Route: SUB-Q, Drug form: SOLN, Daily, Dosing Weight 118.182, kg, Start date: 04/12/17 9:00:00 CDT, Duration: 30 day, Stop date: 05/11/17 9:00:00 ANIMAL NUTRITION CONSULTANT No Longer Active 04/12/2017 [facility] apixaban 5 mg oral tablet 10 mg=2 tab, PO, Q12H, # 28 tab, 0 Refill(s), Pharmacy: [facility] Active 04/11/2017 [facility] 1.5 ML Insulin Glargine 300 UNT/ML Prefilled Syringe [Toujeo] 40 unit, SUB-Q, Daily, # 4 mL, 0 Refill(s), Pharmacy: [facility] Active 04/11/2017 [facility] Hytrin 5 mg, 1 cap, Route: PO, Drug form: CAP, Daily, Start date: 04/11/17 9:00:00 CDT, Duration: 30 day, Stop date: 05/10/17 9:00:00 CSTNotes: (Same As: Hytrin) Inactive 04/11/2017 [facility] Amlodipine 5 mg, 1 tab, Route: PO, Drug form: TAB, Daily, Dosing Weight 118.182, kg, Start date: 04/11/17 9:00:00 CDT, Duration: 30 day, Stop date: 05/10/17 9:00:00 CSTNotes: (Same as: Norvasc) Inactive 04/11/2017 [facility] Amiodarone 400 mg, 2 tab, Route: PO, Drug form: TAB, BID, Dosing Weight 118.182, kg, Start date: 04/11/17 9:00:00 CDT, Duration: 30 day, Stop date: 05/10/17 17:00:00 CSTNotes: (Same as: Cordarone) Inactive 04/11/2017 [facility] Streptococcus pneumoniae serotype 1 capsular antigen diphtheria [id number] protein conjugate vaccine / Streptococcus pneumoniae serotype 14 capsular antigen diphtheria [id number] protein conjugate vaccine / Streptococcus pneumoniae serotype 18C capsular antigen d 0.5 mL, Route: IM, Drug Form: INJ, Daily, Start date: 04/11/17 9:00:00 CDT, Duration: 1 doses or times, Stop date: 04/11/17 9:00:00 CDTNotes: Shake well prior to use (Same as: Prevnar 13) Inactive 04/11/2017 [facility] Docusate 100 mg, 1 cap, Route: PO, Drug form: CAP, BID, Dosing Weight 118.182, kg, Start date: 04/11/17 9:00:00 CDT, Duration: 30 day, Stop date: 05/10/17 17:00:00 CSTNotes: (Same as: Colace) (Do Not Crush) Inactive 04/11/2017 [facility] Cholecalciferol 2000 UNT Oral Tablet 2,000 IntlUnit, 1 tab, Route: PO, Drug form: TAB, Daily, Dosing Weight 118.182, kg, Start date: 04/11/17 9:00:00 CDT, Duration: 30 day, Stop date: 05/10/17 9:00:00 CSTNotes: (Same as: Vitamin D3) Inactive 04/11/2017 [facility] Vitamin B 12 2,000 microgram, 2 tab, Route: PO, Drug form: TAB, Daily, Dosing Weight 118.182, kg, Start date: 04/11/17 9:00:00 CDT, Duration: 30 day, Stop date: 05/10/17 9:00:00 CSTNotes: (Same As: Vitamin B-12) Inactive 04/11/2017 [facility] Aspirin 325 MG Enteric Coated Tablet 325 mg, 1 tab, Route: PO, Drug form: ECTAB, Daily, Dosing Weight 118.182, kg, Start date: 04/11/17 9:00:00 CDT, Duration: 30 day, Stop date: 05/10/17 9:00:00 CSTNotes: (Do Not Crush) Do not crush or chew. Inactive 04/11/2017 [facility] Doxazosin 4 mg, Route: PO, Drug form: TAB, Daily, Dosing Weight 118.182, kg, Start date: 04/11/17 9:00:00 CDT, Duration: 30 day, Stop date: 05/10/17 9:00:00 ANIMAL NUTRITION CONSULTANT No Longer Active 04/11/2017 [facility] duloxetine 60 mg, 1 cap, Route: PO, Drug form: DRC, Daily, Dosing Weight 118.182, kg, Start date: 04/11/17 9:00:00 CDT, Duration: 30 day, Stop date: 05/10/17 9:00:00 CSTNotes: (Same as: Cymbalta) (Do Not Crush) Inactive 04/11/2017 [facility] 1.5 ML Insulin Glargine 300 UNT/ML Prefilled Syringe [Toujeo] 64 unit, 0.64 mL, Route: SUB-Q, Drug form: SOLN, Daily, Dosing Weight 118.182, kg, Start date: 04/11/17 9:00:00 CDT, Duration: 30 day, Stop date: 05/10/17 9:00:00 CSTNotes: Same as: Lantus) Do not hold insulin without contacting prescriber WASTE: F/P - Black; E - Municipal Trash Bin Inactive 04/11/2017 [facility] Metolazone 5 MG Oral Tablet 5 mg, 1 tab, Route: PO, Drug form: TAB, Daily, Dosing Weight 118.182, kg, Start date: 04/11/17 9:00:00 CDT, Duration: 30 day, Stop date: 05/10/17 9:00:00 CSTNotes: (Same as: Zaroxolyn) Inactive 04/11/2017 [facility] Lyrica 25 mg, 1 cap, Route: PO, Drug form: CAP, Daily, Dosing Weight 118.182, kg, Start date: 04/11/17 9:00:00 CDT, Duration: 30 day, Stop date: 05/10/17 9:00:00 CSTNotes: (Same as: Lyrica) Inactive 04/11/2017 [facility] tamsulosin 0.4 mg, 1 cap, Route: PO, Drug form: CAP, Daily, Dosing Weight 118.182, kg, Start date: 04/11/17 9:00:00 CDT, Duration: 30 day, Stop date: 05/10/17 9:00:00 CSTNotes: (Same As: Flomax) "Do Not Crush" Inactive 04/11/2017 [facility] Humalog 15 unit, 0.15 mL, Route: SUB-Q, Drug form: SOLN, TID-Before Meals, Start date: 04/11/17 7:30:00 CDT, Duration: 30 day, Stop date: 05/10/17 16:30:00 CSTNotes: (Same as: Humalog ) Roll in palms of hands g ently; Do not shake `vigorously. "Single Patient Use Only " (Restricted to patients requiring a dose > 60 units) WASTE: F/P - Black; E - Municipal Trash Bin Stable for 28 days at room temperature. Expires in days from Date Inactive 04/11/2017 [facility] Insulin, Aspart, Human 15 unit, Route: SUB-Q, Drug form: SOLN, TID-Before Meals, Dosing Weight 118.182, kg, Start date: 04/11/17 7:30:00 CDT, Duration: 30 day, Stop date: 05/10/17 16:30:00 ANIMAL NUTRITION CONSULTANT No Longer Active 04/11/2017 [facility] Insulin Lispro 5 unit, 0.05 mL, Route: SUB-Q, Drug form: SOLN, TID-Before Meals, Dosing Weight 118.182, kg, PRN Blood Glucose Results, Start date: 04/11/17 5:46:00 CDT, Duration: 30 day, Stop date: 05/11/17 5:45:00 CSTNotes: (Same as: Humalog ) Roll in palms of hands gently; Do not shake `vigorously. "Single Patient Use Only " (Restricted to patients requiring a dose > 60 units) WASTE: F/P - Black; E - Municipal Trash Bin Stable for 28 days at room temperature. Expires in days from Date Inactive 04/11/2017 [facility] Glucagon 1 mg, Route: IM, Drug form: PDR/INJ, PRN, Dosing Weight 118.182, kg, PRN Blood Glucose Results, Start date: 04/11/17 5:46:00 CDT, Duration: 30 day, Stop date: 05/11/17 4:45:00 ANIMAL NUTRITION CONSULTANT Inactive 04/11/2017 [facility] Dextrose 50% Syringe 25 gm, 50 mL, Route: IVP, Drug Form: INJ, Dosing Weight 118.182, kg, PRN, PRN Blood Glucose Results, Start date: 04/11/17 5:46:00 CDT, Duration: 30 day, Stop date: 05/11/17 4:45:00 ANIMAL NUTRITION CONSULTANT Inactive 04/11/2017 [facility] allopurinol 300 mg oral tablet 300 mg=1 tab, PO, Daily, # 30 tab, 0 Refill(s) Active 04/11/2017 [facility] Metolazone 5 MG Oral Tablet 5 mg=1 tab, PO, Daily, # 30 tab, 0 Refill(s) Active 04/11/2017 [facility] torsemide 20 mg oral tablet 20 mg=1 tab, PO, BID, 0 Refill(s) Active 04/11/2017 [facility] carvedilol 25 MG Oral Tablet [Coreg] 25 mg=1 tab, PO, Daily, 0 Refill(s) Active 04/11/2017 [facility] Clonidine Hydrochloride 0.1 MG Oral Tablet 0.1 mg=1 tab, PO, TID, 0 Refill(s) Active 04/11/2017 [facility] Potassium Chloride 20 mEq, Daily, 0 Refill(s) Active 04/11/2017 [facility] Humalog SUB-Q, 0 Refill(s) Inactive 04/11/2017 [facility] 1.5 ML Insulin Glargine 300 UNT/ML Prefilled Syringe [Toujeo] 80 unit, SUB-Q, Daily, 0 Refill(s) Inactive 04/11/2017 [facility] metoprolol tartrate 50 mg, 1 tab, Route: PO, Drug form: TAB, Q6H, Dosing Weight 118.182, kg, Start date: 04/10/17 22:30:00 CDT, Duration: 30 day, Stop date: 05/10/17 22:30:00 CSTNotes: (Same as: Lopressor) No Longer Active 04/11/2017 [facility] Eliquis 10 mg, 2 tab, Route: PO, Drug form: TAB, Q12H, Dosing Weight 118.182, kg, Start date: 04/10/17 21:00:00 CDT, Duration: 30 day, Stop date: 05/10/17 9:00:00 CSTNotes: Same as: Eliquis No Longer Active 04/11/2017 [facility] Ondansetron 4 mg, Route: IVP, Q6H, Dosing Weight 118.182, kg, PRN Nausea & Vomiting, Start date: 04/10/17 20:08:00 CDT, Duration: 30 day, Stop date: 05/10/17 20:07:00 ANIMAL NUTRITION CONSULTANT Inactive 04/11/2017 [facility] Acetaminophen 325 MG / Hydrocodone Bitartrate 5 MG Oral Tablet 1 tab, Route: PO, Drug Form: TAB, Dosing Weight 118.182, kg, Q4H, PRN Pain Score 4-6, Start date: 04/10/17 20:08:00 CDT, Duration: 30 day, Stop date: 05/10/17 20:07:00 CSTNotes: (Same as: [place] 325/5) Do not exceed 4gm/day of acetaminophen. No Longer Active 04/11/2017 [facility] Morphine 4 mg, 1 mL, Route: IVP, Drug form: SOLN, ONCE, Dosing Weight 118.182, kg, Priority: STAT, Start date: 04/10/17 19:49:00 CDT, Stop date: 04/10/17 19:49:00 CDTNotes: (Same as:MORPhine Sulfate) Inactive 04/11/2017 [facility] vancomycin 750 mg/150 mL-NaCl 0.9% intravenous solution 750 mg, IV, Q12H, infused over 60 minutes, aim level 15-19, X 28 day, # 56 ea, 0 Refill(s), other Active 01/31/2017 [facility] pantoprazole 40 mg oral enteric coated tablet 40 mg=1 tab, PO, Before Breakfast, 0 Refill(s) Active 01/31/2017 [facility] metoprolol tartrate 50 mg oral tablet 50 mg=1 tab, PO, Q6H, 0 Refill(s) Active 01/31/2017 [facility] Insulin, Aspart, Human 15 unit, SUB-Q, TID-Before Meals, 0 Refill(s) Active 01/31/2017 [facility] DULoxetine 60 mg oral delayed release capsule 60 mg=1 cap, PO, Daily, 0 Refill(s) Active 01/31/2017 [facility] doxazosin 2 mg oral tablet 4 mg=2 tab, PO, Daily, 0 Refill(s) Active 01/31/2017 [facility] amLODIPine 5 mg oral tablet 5 mg=1 tab, PO, Daily, 0 Refill(s) Active 01/31/2017 [facility] AMIODarone 200 mg oral tablet 400 mg=2 tab, PO, BID, 0 Refill(s) Active 01/31/2017 [facility] cyanocobalamin 1000 mcg sublingual tablet 2,000 microgram=2 tab, PO, Daily, 0 Refill(s) Active 01/31/2017 [facility] cholecalciferol 2000 intl units oral capsule 2,000 IntlUnit=1 cap, PO, Daily, 0 Refill(s) Active 01/31/2017 [facility] acetaminophen 500 mg oral tablet 1,000 mg=2 tab, PO, Q6H, 0 Refill(s) Active 01/31/2017 [facility] Aspirin 325 MG Enteric Coated Tablet 325 mg=1 tab, PO, Daily, 0 Refill(s) Active 01/31/2017 [facility] tramadol hydrochloride 50 MG Oral Tablet 50 mg=1 tab, PO, Q6H, PRN Pain Score 1-5, 0 Refill(s) Active 01/31/2017 [facility] tamsulosin 0.4 mg oral capsule 0.4 mg=1 cap, PO, Daily, 0 Refill(s) Active 01/31/2017 [facility] rosuvastatin 10 mg oral tablet 20 mg=2 tab, PO, Bedtime, 0 Refill(s) Active 01/31/2017 [facility] Insulin Glargine 100 UNT/ML Injectable Solution [Lantus] 40 unit, SUB-Q, Daily, 0 Refill(s) Active 01/31/2017 [facility] Saline Flush 0.9% 10 mL, Route: IVP, Drug Form: INJ, Dosing Weight 125, kg, Q8H, Start date: 01/30/17 16:00:00 CDT, Duration: 30 day, Stop date: 03/01/17 8:00:00 CDTNotes: (Same as: BD Posiflush) No Longer Active 01/30/2017 [facility] Acetaminophen 325 MG / Hydrocodone Bitartrate 5 MG Oral Tablet 1 tab, Route: PO, Drug Form: TAB, Dosing Weight 125, kg, Q6H, PRN Pain Score 1-3, Start date: 01/30/17 14:37:00 CDT, Duration: 30 day, Stop date: 03/01/17 14:36:00 CDT Inactive 01/30/2017 [facility] Lidocaine Hydrochloride 10 MG/ML Injectable Solution 5 mL, Route: INTRADERM, Dosing Weight 125, kg, ONCALL, Start date: 01/30/17 9:00:00 CDT, Duration: 30 day, Stop date: 03/01/17 8:59:00 CDT Inactive 01/30/2017 [facility] Amlodipine 5 mg, 1 tab, Route: PO, Drug form: TAB, Daily, Dosing Weight 125, kg, Start date: 01/30/17 9:00:00 CDT, Duration: 30 day, Stop date: 02/28/17 9:00:00 CDTNotes: (Same as: Norvasc) No Longer Active 01/30/2017 [facility] Saline Flush 0.9% 10 mL, Route: IVP, Drug Form: INJ, Dosing Weight 125, kg, PRN, PRN Line Flush, Start date: 01/30/17 8:32:00 CDT, Duration: 30 day, Stop date: 03/01/17 8:31:00 CDTNotes: (Same as: BD Posiflush) No Longer Active 01/30/2017 [facility] Amlodipine 5 mg, 1 tab, Route: PO, Drug form: TAB, ONCE, Dosing Weight 125, kg, Start date: 01/29/17 22:45:00 CDT, Stop date: 01/29/17 22:45:00 CDTNotes: (Same as: Norvasc) Inactive 01/30/2017 [facility] heparin additive 25,000 unit [14 unit/kg/hr] + Premix Diluent Dextrose 5% 500 mL 500 mL, Rate: 29.36 ml/hr, Infuse over: 17 hr, Route: IV, Dosing Weight 104.84 kg, Total Volume: 500 mL, Start date: 01/28/17 14:08:00 CDT, Duration: 30 day, Stop date: 02/27/17 14:07:00 CDT No Longer Active 01/28/2017 [facility] heparin additive 25,000 unit [14 unit/kg/hr] + Premix Diluent Dextrose 5% 500 mL 500 mL, Rate: 35 ml/hr, Infuse over: 14.3 hr, Route: IV, Dosing Weight 125 kg, Total Volume: 500 mL, Start date: 01/28/17 14:03:00 CDT, Duration: 30 day, Stop date: 02/27/17 14:02:00 CDT Inactive 01/28/2017 [facility] heparin additive 25,000 unit [14 unit/kg/hr] + Premix Diluent Dextrose 5% 500 mL 500 mL, Rate: 35 ml/hr, Infuse over: 14.3 hr, Route: IV, Dosing Weight 125 kg, Total Volume: 500 mL, Start date: 01/28/17 13:46:00 CDT, Duration: 30 day, Stop date: 02/27/17 13:45:00 CDT Inactive 01/28/2017 [facility] Amiodarone 400 mg, 2 tab, Route: PO, Drug form: TAB, BID, Dosing Weight 125, kg, Start date: 01/28/17 9:00:00 CDT, Duration: 12 day, Stop date: 02/08/17 17:00:00 CDTNotes: (Same as: Cordarone) No Longer Active 01/28/2017 [facility] metoprolol tartrate 50 mg, 1 tab, Route: PO, Drug form: TAB, Q6H, Dosing Weight 125, kg, Start date: 01/27/17 0:00:00 CDT, Duration: 30 day, Stop date: 02/25/17 18:00:00 CDTNotes: (Same as: Lopressor) No Longer Active 01/27/2017 [facility] NIFEdipine 90 mg oral tablet, extended release 90 mg, 1 tab, Route: PO, Drug form: ERTAB, ONCE, Dosing Weight 125, kg, Start date: 01/26/17 21:00:00 CDT, Stop date: 01/26/17 21:00:00 CDTNotes: (Same as: Adalat CC,Procardia XL) "Do Not Crush" "Avoid grapefruit and grapefruit juice" Inactive 01/27/2017 [facility] AMIODarone INJ 900 mg + D5W 500 ml INJ 482 mL 900 mg, 18 mL, Rate: 1 mg/min for 6 hours, then reduce to 0.5 mg/min, Dosing Weight 125, kg, Route: IV, Total Volume: 500, Start Date: 01/26/17 20:15:00 CDT, Duration: 30 day, Stop date: 02/25/17 20:14:00 CDT, Replace Every: 24 hrNotes: Central administration only for concentration > 2 mg/ml. Use Glass Bottle or Non PVC Bag "Use 0.22 micron in-line filter" MEDICATION WASTE Product Size: 900 mg Product Wasted: ___ mg No Longer Active 01/27/2017 [facility] Amiodarone 150 mg, 3 mL, Route: IVPB, ONCE, Dosing Weight 125, kg, Priority: STAT, Start date: 01/26/17 20:14:00 CDT, Stop date: 01/26/17 20:14:00 CDTNotes: Central administration only for concentrations > 2 mg/ml. "Recommendation: Use an in-line filter during administration for continuous infusions to reduce the incidence of phlebitis" (Same as Codarone) MEDICATION WASTE Product Size: 150 mg Product Wasted: ___ mg Inactive 01/27/2017 [facility] NS (Bolus) IV 500 mL, 500 ml/hr, Infuse Over: 1 hr, Route: IV, 500, Drug form: INJ, ONCE, Priority: STAT, Dosing Weight 125 kg, Start date: 01/26/17 20:11:00 CDT, Duration: 1 doses or times, Stop date: 01/26/17 20 :11:00 CDT Inactive 01/27/2017 [facility] metoprolol tartrate 50 mg, 1 tab, Route: PO, Drug form: TAB, Q6H, Dosing Weight 125, kg, Start date: 01/26/17 18:45:00 CDT, Stop date: 02/25/17 18:00:00 CDTNotes: (Same as: Lopressor) No Longer Active 01/26/2017 [facility] Diltiazem 125 mg, 25 mL, Rate: Titrate, Start Dose: 15 mg/hr, Titration: 5 mg/hr every 30 min, Goal(s): Maintain HR Notes: (Same as: Cardizem) Inactive 01/26/2017 [facility] Insulin Glargine 100 UNT/ML Injectable Solution [Lantus] 40 unit, 0.4 mL, Route: SUB-Q, Drug form: SOLN, Daily, Dosing Weight 125, kg, Start date: 01/26/17 9:00:00 CDT, Duration: 30 day, Stop date: 02/24/17 9:00:00 CDTNotes: (Same as: Lantus) Do not hold insulin without contacting prescriber WASTE: F/P - Black; E - Municipal Trash Bin "single patient use only" No Longer Active 01/26/2017 [facility] vancomycin + sodium chloride 0.9% INJ 150 mL 750 mg, Route: IVPB, [id number], Start date: 01/26/17 8:00:00 CDT, Duration: 30 day, Stop date: 02/24/17 21:00:00 CDT, ABX Indication: BacteremiaNotes: TIME CRITICAL MEDICATION (Same As: Vancocin) Infusion rate 2001 mg: infuse over 2.5 hours MEDICATION WASTE Product Size: 1000 mg Product Wasted: ___ mg No Longer Active 01/26/2017 [facility] Cardura 4 mg, 2 tab, Route: PO, Drug form: TAB, Daily, Dosing Weight 125, kg, Priority: NOW, Start date: 01/25/17 9:12:00 CDT, Duration: 30 day, Stop date: 02/24/17 9:00:00 CDTNotes: (Same as: Jason) No Longer Active 01/25/2017 [facility] Doxazosin 4 mg, 1 tab, Route: PO, Drug form: TAB, Daily, Dosing Weight 125, kg, Start date: 01/25/17 9:00:00 CDT, Duration: 30 day, Stop date: 02/23/17 9:00:00 CDTNotes: (Same as: Jason) Inactive 01/25/2017 [facility] Doxazosin 4 mg, 1 tab, Route: PO, Drug form: TAB, ONCE, Dosing Weight 125, kg, Start date: 01/25/17 1:17:00 CDT, Stop date: 01/25/17 1:17:00 CDTNotes: (Same as: Jason) Inactive 01/25/2017 [facility] Diltiazem 90 mg, 3 tab, Route: PO, Drug form: TAB, Q8H, Dosing Weight 125, kg, Priority: STAT, Start date: 01/24/17 2:36:00 CDT, Stop date: 02/23/17 0:00:00 CDTNotes: (Same as: Cardizem) Before meals No Longer Active 01/24/2017 [facility] magnesium citrate 58.2 MG/ML Oral Solution 300 ml, Route: PO, Drug Form: LIQ, Dosing Weight 125, kg, ONCE, Start date: 01/22/17 19:56:00 CDT, Stop date: 01/22/17 19:56:00 CDTNotes: (Same as: Citrate of Magnesia) Concentration: 1.745 gm / 30 mL No Longer Active 01/23/2017 [facility] diltiazem 12 hour extended release 60 mg, 1 cap, Route: PO, Drug form: ERCAP, Q12H, Dosing Weight 125, kg, Start date: 01/22/17 18:35:00 CDT, Duration: 30 day, Stop date: 02/21/17 9:00:00 CDTNotes: (Same as: Cardizem SR) Before meals. DO NOT CRUSH. Give twice daily. No Longer Active 01/22/2017 [facility] Lopressor 100 mg, 2 tab, Route: PO, Drug form: TAB, Q12H, Dosing Weight 125, kg, Start date: 01/22/17 9:58:00 CDT, Duration: 30 day, Stop date: 02/21/17 9:00:00 CDTNotes: (Same as: Lopressor) No Longer Active 01/22/2017 [facility] metoprolol tartrate 100 mg, 1 tab, Route: PO, Drug form: TAB, Q12H, Dosing Weight 125, kg, Start date: 01/22/17 9:00:00 CDT, Duration: 30 day, Stop date: 02/20/17 21:00:00 CDTNotes: (Same as: Lopressor) Inactive 01/22/2017 [facility] Metoprolol 5 mg, 5 mL, Route: IV, Drug form: INJ, ONCE, Dosing Weight 125, kg, Start date: 01/22/17 7:21:00 CDT, Stop date: 01/22/17 7:21:00 CDTNotes: (Same as: Lopressor) Push over 2 minutes Inactive 01/22/2017 [facility] Zofran 4 mg, 2 mL, Route: IVP, Drug form: INJ, Q8H, Dosing Weight 125, kg, PRN Nausea, Start date: 01/22/17 5:24:00 CDT, Duration: 30 day, Stop date: 02/21/17 5:23:00 CDTNotes: (Same as: Zofran) MEDICATION WASTE Product Size: 4 mg Product Wasted: ___ mg No Longer Active 01/22/2017 [facility] Metoprolol 5 mg, 5 mL, Route: IVP, Drug form: INJ, Q8H, Dosing Weight 125, kg, PRN Tachycardia, Start date: 01/22/17 3:26:00 CDT, Duration: 30 day, Stop date: 02/21/17 3:25:00 CDT, HR>110/minNotes: (Same as: Lo pressor) Push over 2 minutes Inactive 01/22/2017 [facility] pantoprazole 80 mg + sodium chloride 0.9% INJ 100 mL 100 mL, Rate: 10 ml/hr, Infuse over: 10 hr, Route: IVPB, Dosing Weight 125 kg, Total Volume: 100, Infuse at 8 mg / hr for 72 hours for GI bleeding, Start date: 01/22/17 3:04:00 CDT, Stop date: 01/25/17 3:03:00 CDT No Longer Active 01/22/2017 [facility] carvedilol 25 mg, 1 tab, Route: PO, Drug form: TAB, BID, Dosing Weight 125, kg, Start date: 01/22/17 0:06:00 CDT, Duration: 30 day, Stop date: 02/20/17 17:00:00 CDTNotes: Give with food. (Same As: Coreg) Inactive 01/22/2017 [facility] Amlodipine 5 mg, 1 tab, Route: PO, Drug form: TAB, Daily, Dosing Weight 125, kg, Start date: 01/21/17 17:33:00 CDT, Duration: 30 day, Stop date: 02/20/17 9:00:00 CDTNotes: (Same as: Norvasc) No Longer Active 01/21/2017 [facility] magnesium citrate 58.2 MG/ML Oral Solution 300 ml, Route: PO, Drug Form: LIQ, Dosing Weight 125, kg, ONCE, Start date: 01/21/17 17:33:00 CDT, Stop date: 01/21/17 17:33:00 CDTNotes: (Same as: Citrate of Magnesia) Concentration: 1.745 gm / 30 mL Inactive 01/21/2017 [facility] Vitamin B12 2,000 microgram, 2 tab, Route: PO, Drug form: TAB, Daily, Dosing Weight 125, kg, Start date: 01/21/17 9:00:00 CDT, Duration: 30 day, Stop date: 02/19/17 9:00:00 CDTNotes: (Same As: Vitamin B-12) No Longer Active 01/21/2017 [facility] metoprolol tartrate 25 mg, Route: PO, Drug form: TAB, Q12H, Dosing Weight 125, kg, Start date: 01/21/17 9:00:00 CDT, Duration: 30 day, Stop date: 02/19/17 21:00:00 CDT Inactive 01/21/2017 [facility] Vancomycin 1,000 mg, Route: IVPB, Drug form: INJ, [id number], Dosing Weight 125, kg, Start date: 01/21/17 9:00:00 CDT, Duration: 14 day, Stop date: 02/03/17 20:00:00 CDT, ABX Indication: BacteremiaNotes: TIME CRITICAL MEDICATION (Same As: Vancocin) Infusion rate 2001 mg: infuse over 2.5 hours MEDICATION WASTE Product Size: 1000 mg Product Wasted: ___ mg No Longer Active 01/21/2017 [facility] pantoprazole 40 mg, 1 tab, Route: PO, Drug form: ECTAB, Before Breakfast, Dosing Weight 125, kg, Start date: 01/21/17 7:30:00 CDT, Duration: 30 day, Stop date: 02/19/17 7:30:00 CDTNotes: Tablet should not be chewed or crushed. (Same as: Protonix) No Longer Active 01/21/2017 [facility] Tylenol 1,000 mg, 2 tab, Route: PO, Drug form: TAB, Q6H, Dosing Weight 125, kg, Start date: 01/20/17 12:00:00 CDT, Duration: 30 day, Stop date: 02/19/17 6:00:00 CDTNotes: Max acetaminophen 4000 mg/day (4 gm/day). (Same as: Tylenol Extra Strength) No Longer Active 01/20/2017 [facility] Vitamin D3 2,000 IntlUnit, 1 cap, Route: PO, Drug form: CAP, Daily, Dosing Weight 125, kg, Priority: NOW, Start date: 01/20/17 9:56:00 CDT, Duration: 30 day, Stop date: 02/19/17 9:00:00 CDTNotes: Same as: Vitamin D3 No Longer Active 01/20/2017 [facility] insulin aspart 15 unit, 0.15 mL, Route: SUB-Q, Drug form: SOLN, TID-Before Meals, Priority: NOW, Start date: 01/20/17 9:28:00 CDT, Duration: 30 day, Stop date: 02/19/17 7:30:00 CDTNotes: Roll in palms of hands gently; Do not shake vigorously. (Same as: NovoLOG) "single patient use only" WASTE: F/P - Black; E - Municipal Trash Bin Stable for 28 days at room temperature. Expires in days from Date No Longer Active 01/20/2017 [facility] duloxetine 60 mg, 1 cap, Route: PO, Drug form: DRC, Daily, Dosing Weight 125, kg, Start date: 01/20/17 9:00:00 CDT, Duration: 30 day, Stop date: 02/18/17 9:00:00 CDTNotes: (Same as: Cymbalta) (Do Not Crush) No Longer Active 01/20/2017 [facility] Vitamin B 12 2,000 microgram, 2 tab, Route: PO, Drug form: TAB, Daily, Dosing Weight 125, kg, Start date: 01/20/17 9:00:00 CDT, Duration: 30 day, Stop date: 02/18/17 9:00:00 CDTNotes: (Same As: Vitamin B-12) Inactive 01/20/2017 [facility] Insulin Glargine 100 UNT/ML Injectable Solution [Lantus] 40 unit, 0.4 mL, Route: SUB-Q, Drug form: SOLN, Q12H, Dosing Weight 125, kg, Start date: 01/20/17 9:00:00 CDT, Stop date: 02/18/17 21:00:00 CDTNotes: (Same as: Lantus) Do not hold insulin without contacting prescriber WASTE: F/P - Black; E - Municipal Trash Bin "single patient use only" No Longer Active 01/20/2017 [facility] Vitamin D3 2000 intl units oral tablet 2,000 IntlUnit, 1 tab, Route: PO, Drug form: TAB, Daily, Dosing Weight 125, kg, Start date: 01/20/17 9:00:00 CDT, Duration: 30 day, Stop date: 02/18/17 9:00:00 CDTNotes: (Same as: Vitamin D3) Inactive 01/20/2017 [facility] tamsulosin 0.4 mg, 1 cap, Route: PO, Drug form: CAP, Daily, Dosing Weight 125, kg, Start date: 01/20/17 9:00:00 CDT, Duration: 30 day, Stop date: 02/18/17 9:00:00 CDTNotes: (Same As: Flomax) "Do Not Crush" No Longer Active 01/20/2017 [facility] Lyrica 75 mg, 1 cap, Route: PO, Drug form: CAP, BID, Dosing Weight 125, kg, Start date: 01/20/17 9:00:00 CDT, Duration: 30 day, Stop date: 02/18/17 17:00:00 CDTNotes: (Same as: Lyrica) No Longer Active 01/20/2017 [facility] Aspirin 325 MG Enteric Coated Tablet 325 mg, 1 tab, Route: PO, Drug form: ECTAB, Daily, Dosing Weight 125, kg, Start date: 01/20/17 9:00:00 CDT, Duration: 30 day, Stop date: 02/18/17 9:00:00 CDTNotes: (Do Not Crush) Do not crush or chew. No Longer Active 01/20/2017 [facility] carvedilol 25 mg, 1 tab, Route: PO, Drug form: TAB, Daily, Dosing Weight 125, kg, Start date: 01/20/17 9:00:00 CDT, Duration: 30 day, Stop date: 02/18/17 9:00:00 CDTNotes: Give with food. (Same As: Coreg) No Longer Active 01/20/2017 [facility] heparin 5,000 unit, 1 mL, Route: SUB-Q, Drug form: INJ, Q8H, Dosing Weight 125, kg, Start date: 01/20/17 8:00:00 CDT, Stop date: 02/19/17 0:00:00 CDTNotes: porcine heparin No Longer Active 01/20/2017 [facility] Insulin Glargine 100 UNT/ML Injectable Solution [Lantus] 80 unit, 0.8 mL, Route: SUB-Q, Drug form: PEYTON MILLER (Insulin), Dosing Weight 125, kg, Start date: 01/20/17 7:30:00 CDT, Duration: 30 day, Stop date: 02/18/17 7:30:00 CDTNotes: (Same as: Lantus) Do not hold insulin without contacting prescriber WASTE: F/P - Black; E - Municipal Trash Bin "single patient use only" Inactive 01/20/2017 [facility] insulin aspart 15 unit, 0.15 mL, Route: SUB-Q, Drug form: SOLN, TID-Before Meals, Start date: 01/20/17 7:30:00 CDT, Stop date: 02/18/17 16:30:00 CDTNotes: Roll in palms of hands gently; Do not shake vigorously. (S arianne as: NovoLOG) "single patient use only" WASTE: F/P - Black; E - Municipal Trash Bin Stable for 28 days at room temperature. Expires in days from Date Inactive 01/20/2017 [facility] Insulin Lispro 30 unit, Route: SUB-Q, Drug form: SOLN, TID-Before Meals, Dosing Weight 125, kg, Start date: 01/20/17 7:30:00 CDT, Duration: 30 day, Stop date: 02/18/17 16:30:00 CDT No Longer Active 01/20/2017 [facility] Isolyte S (PH 7.4) 1000 mL 1,000 mL 1,000 mL, Rate: 125 ml/hr, Infuse over: 8 hr, Route: IV, Dosing Weight 125 kg, Total Volume: 1,000, Start date: 01/20/17 6:52:00 CDT, Duration: 30 day, Stop date: 02/19/17 6:51:00 CDTNotes: (Same as: Isolyte S PH 7.4) Inactive 01/20/2017 [facility] heparin 5,000 unit, 1 mL, Route: SUB-Q, Drug form: INJ, Q8H, Dosing Weight 125, kg, Start date: 01/20/17 0:00:00 CDT, Duration: 30 day, Stop date: 02/18/17 16:00:00 CDTNotes: porcine heparin No Longer Active 01/20/2017 [facility] cefepime 1 gm, Route: IV, Drug form: INJ, Q12H, Dosing Weight 125, kg, Start date: 01/19/17 21:00:00 CDT, Duration: 7 day, Stop date: 01/26/17 9:00:00 CDT, ABX Indication: Skin/Soft Tissue InfectionNotes: (Same As: Maxipime) MEDICATION WASTE Product Size: 1000 mg Product Wasted: ___ mg No Longer Active 01/20/2017 [facility] Crestor 20 mg, 2 tab, Route: PO, Drug form: TAB, Bedtime, Dosing Weight 125, kg, Start date: 01/19/17 21:00:00 CDT, Duration: 30 day, Stop date: 02/17/17 21:00:00 CDTNotes: (Same As: Crestor) No Longer Active 01/20/2017 [facility] Tylenol 1,000 mg, 2 tab, Route: PO, Drug form: TAB, ONCE, Dosing Weight 125, kg, Priority: STAT, Start date: 01/19/17 19:13:00 CDT, Stop date: 01/19/17 19:13:00 CDTNotes: Max acetaminophen 4000 mg/day (4 gm/day). (Same as: Tylenol Extra Strength) Inactive 01/20/2017 [facility] Morphine 4 mg, 1 mL, Route: IVP, Drug form: INJ, ONCE, Dosing Weight 125, kg, Priority: STAT, Start date: 01/19/17 18:42:00 CDT, Stop date: 01/19/17 18:42:00 CDTNotes: (Same as:MORPhine Sulfate) Inactive 01/19/2017 [facility] tramadol hydrochloride 50 MG Oral Tablet 50 mg, 1 tab, Route: PO, Drug form: TAB, Q6H, Dosing Weight 125, kg, PRN Pain Score 1-5, Start date: 01/19/17 17:01:00 CDT, Stop date: 02/18/17 17:00:00 CDTNotes: Not to exceed 400mg/day. (Same As: Ultram) No Longer Active 01/19/2017 [facility] Acetaminophen 325 MG / Hydrocodone Bitartrate 5 MG Oral Tablet [[place] 5/325] 1 tab, Route: PO, Drug Form: TAB, Dosing Weight 125, kg, Q4H, PRN Pain Score 6-10, Start date: 01/19/17 17:01:00 CDT, Duration: 30 day, Stop date: 02/18/17 17:00:00 CDTNotes: (Same as: [place] 325/5) Do not exceed 4gm/day of acetaminophen. No Longer Active 01/19/2017 [facility] Clonidine Hydrochloride 0.1 MG Oral Tablet 0.1 mg, 1 tab, Route: PO, Drug form: TAB, TID, Dosing Weight 125, kg, Start date: 01/19/17 17:00:00 CDT, Duration: 30 day, Stop date: 02/18/17 13:00:00 CDTNotes: (Same As: Catapres) No Longer Active 01/19/2017 [facility] Flagyl 500 mg, 100 mL, Route: IV, Drug form: INJ, ABXQ8H, Dosing Weight 125, kg, Start date: 01/19/17 17:00:00 CDT, Stop date: 01/26/17 17:00:00 CDT, ABX Indication: Skin/Soft Tissue InfectionNotes: (Same as: Flagyl) Avoid alcohol. No Longer Active 01/19/2017 [facility] Heparin 40 unit/kg Bolus (Heparin Dosing Weight) Route: IVP, PRN, 4,200 unit, 4.2 mL, Drug form: INJ, PRN, Heparin Protocol, Start date: 01/19/17 16:56:00 CDT Stop date: 02/18/17 16:55:00 CDT, 30 day Inactive 01/19/2017 [facility] heparin additive 25,000 unit [18 unit/kg/hr] + Premix Diluent Dextrose 5% 500 mL 500 mL, Rate: 37.74 ml/hr, Infuse over: 13.2 hr, Route: IV, Dosing Weight 104.84 kg, Total Volume: 500 mL, Start date: 01/19/17 16:56:00 CDT, Duration: 30 day, Stop date: 02/18/17 16:55:00 CDT Inactive 01/19/2017 [facility] Heparin - one time bolus for DVT/PE 6,400 unit, 6.4 mL, Route: IVP, Drug form: INJ, ONCE, Dosing Weight 125, kg, Priority: STAT, Start date: 01/19/17 16:56:00 CDT, Stop date: 01/19/17 16:56:00 CDT Inactive 01/19/2017 [facility] Heparin 80 unit/kg Bolus (Heparin Dosing Weight) Route: IVP, PRN, 8,400 unit, 8.4 mL, Drug form: INJ, PRN, Heparin Protocol, Start date: 01/19/17 16:56:00 CDT Stop date: 02/18/17 16:55:00 CDT, 30 day Inactive 01/19/2017 [facility] tramadol hydrochloride 50 MG Oral Tablet 50 mg=1 tab, PO, Q6H, PRN Pain, # 40 tab, 0 Refill(s) No Longer Active 01/19/2017 [facility] Furosemide 20 MG Oral Tablet 20 mg=1 tab, PO, Daily, # 30 tab, 0 Refill(s) No Longer Active 01/19/2017 [facility] HumaLOG KwikPen (Concentrated) 36 units, SUB-Q, Before Dinner, 0 Refill(s) No Longer Active 01/19/2017 [facility] Plasma-Lyte A PH-7.4 1000 ml INJ 1,000 mL 1,000 mL, Rate: 125 ml/hr, Infuse over: 8 hr, Route: IV, Dosing Weight 125 kg, Total Volume: 1,000, Start date: 01/19/17 14:51:00 CDT, Duration: 30 day, Stop date: 02/18/17 14:50:00 CDTNotes: WASTE: F/P - Sink; E - Municipal Trash Bin Inactive 01/19/2017 [facility] Morphine 4 mg, 1 mL, Route: IVP, Drug form: INJ, ONCE, Dosing Weight 125, kg, Priority: STAT, Start date: 01/19/17 14:28:00 CDT, Stop date: 01/19/17 14:28:00 CDTNotes: (Same as:MORPhine Sulfate) Inactive 01/19/2017 [facility] Vancomycin 2 gm, Route: IVPB, ONCE, Dosing Weight 125, kg, TIME CRITICAL MEDICATION, Priority: STAT, Start date: 01/19/17 12:39:00 CDT, Duration: 1 doses or times, Stop date: 01/19/17 12:39:00 CDT, ABX Indication: Skin/Soft Tissue Infection Inactive 01/19/2017 [facility] cefepime 1 gm, Route: IVPB, ONCE, Dosing Weight 125, kg, Priority: STAT, Start date: 01/19/17 12:39:00 CDT, Duration: 1 doses or times, Stop date: 01/19/17 12:39:00 CDT, ABX Indication: Skin/Soft Tissue Infection Inactive 01/19/2017 [facility] Acetaminophen 650 mg, Route: PO, Drug form: TAB, ONCE, Dosing Weight 125, kg, Start date: 01/19/17 12:39:00 CDT, Stop date: 01/19/17 12:39:00 CDT Inactive 01/19/2017 [facility] Saline Flush 0.9% 10 mL, Route: IVP, Drug Form: INJ, Dosing Weight 125, kg, PRN, PRN Line Flush, Start date: 01/19/17 12:39:00 CDT, Duration: 30 day, Stop date: 02/18/17 12:38:00 CDTNotes: Same as: BD Posiflush Sterile No Longer Active 01/19/2017 [facility] Calcium Chloride 0.0014 MEQ/ML / Potassium Chloride 0.004 MEQ/ML / Sodium Chloride 0.103 MEQ/ML / Sodium Lactate 0.028 MEQ/ML Injectable Solution 3,750 mL, 2,000 ml/hr, Route: IV, ONCE, Priority: STAT, Dosing Weight 125 kg, Start date: 01/19/17 12:39:00 CDT, Duration: 1 doses or times, Stop date: 01/19/17 12:39:00 CDT Inactive 01/19/2017 [facility] Saline Flush 0.9% 10 mL, Route: IVP, Drug Form: INJ, Dosing Weight 125, kg, PRN, PRN Line Flush, Start date: 01/19/17 12:30:00 CDT, Duration: 30 day, Stop date: 02/18/17 12:29:00 CDTNotes: Same as: BD Posiflush Sterile No Longer Active 01/19/2017 [facility] Allergies, Adverse Reactions, Alerts Substance Category Reaction Severity Reaction type Status Date Reported Comments Source clindamycin Assertion Drug allergy Active [facility] hydrALAZINE<sup>1</sup> Assertion Drug allergy Active Data migrated from [employer] on 10/22/14. Originally documented as HYDRALAZINE HCL. dyspnea [facility] Immunizations Immunization Date Given Site Status Last Updated Comments Source influenza virus vaccine, inactivated 04/08/2018 completed [facility] pneumococcal 13-valent vaccine 04/11/2017 Left Deltoid completed [facility], JESSE Salmeron Hx influenza vaccine-unspecified<sup>1</sup> 04/26/2014 completed [employer] Result Comment: done. Migrated from [facility] ; Data migrated from [employer] on 07/26/2015[facility], JESSE Guerrier, JESSE Salmeron Results Order Name Results Value Reference Range Date Interpretation Comments Source CHEM PANEL Glucose Lvl 120 70 - 99 02/05/2019 [facility] CHEM PANEL BUN 65 7 - 22 02/05/2019 [facility] CHEM PANEL Creatinine Lvl 2.45 0.50 - 1.40 02/05/2019 [facility] CHEM PANEL Sodium Lvl 139 135 - 145 02/05/2019 [facility] CHEM PANEL Potassium Lvl 3.9 3.5 - 5.1 02/05/2019 [facility] CHEM PANEL Chloride Lvl 107 95 - 109 02/05/2019 [facility] CHEM PANEL CO2 21 24 - 32 02/05/2019 [facility] CHEM PANEL Calcium Lvl 9.6 8.5 - 10.5 02/05/2019 [facility] CHEM PANEL AGAP 14.9 10.0 - 20.0 02/05/2019 [facility] CHEM PANEL eGFR 26 02/05/2019 Result Comment: The eGFR is calculated using the CKD-EPI formula. In most young, healthy individuals the eGFR will be >90 mL/min/1.73m2. The eGFR declines with age. An eGFR of 60-89 may be normal in some populations, particularly the elderly, for whom the CKD-EPI formula has not been extensively validated. Use of the eGFR is not recommended in the following populations:

Individuals with unstable creatinine concentrations, including patients and those with serious co-morbid conditions.

Patients with extremes in muscle mass or diet.

The data above are obtained from the National Kidney Disease Education Program (NKDEP) which additionally recommends that when the eGFR is used in patients with extremes of body mass index for purposes of drug dosing, the eGFR should be multiplied by the estimated BMI. [facility] CHEM PANEL Glucose Lvl 118 70 - 99 02/04/2019 [facility] CHEM PANEL BUN 63 7 - 22 02/04/2019 [facility] CHEM PANEL Creatinine Lvl 2.94 0.50 - 1.40 02/04/2019 [facility] CHEM PANEL Sodium Lvl 138 135 - 145 02/04/2019 [facility] CHEM PANEL Potassium Lvl 3.8 3.5 - 5.1 02/04/2019 [facility] CHEM PANEL Chloride Lvl 106 95 - 109 02/04/2019 [facility] CHEM PANEL CO2 21 24 - 32 02/04/2019 [facility] CHEM PANEL Calcium Lvl 9.3 8.5 - 10.5 02/04/2019 [facility] CHEM PANEL AGAP 14.8 10.0 - 20.0 02/04/2019 [facility] CHEM PANEL eGFR 21 02/04/2019 Result Comment: The eGFR is calculated using the CKD-EPI formula. In most young, healthy individuals the eGFR will be >90 mL/min/1.73m2. The eGFR declines with age. An eGFR of 60-89 may be normal in some populations, particularly the elderly, for whom the CKD-EPI formula has not been extensively validated. Use of the eGFR is not recommended in the following populations:

Individuals with unstable creatinine concentrations, including patients and those with serious co-morbid conditions.

Patients with extremes in muscle mass or diet.

The data above are obtained from the National Kidney Disease Education Program (NKDEP) which additionally recommends that when the eGFR is used in patients with extremes of body mass index for purposes of drug dosing, the eGFR should be multiplied by the estimated BMI. [facility] CHEM PANEL Glucose Lvl 133 70 - 99 02/03/2019 [facility] CHEM PANEL BUN 62 7 - 22 02/03/2019 [facility] CHEM PANEL Creatinine Lvl 3.47 0.50 - 1.40 02/03/2019 [facility] CHEM PANEL Sodium Lvl 132 135 - 145 02/03/2019 [facility] CHEM PANEL Potassium Lvl 3.9 3.5 - 5.1 02/03/2019 [facility] CHEM PANEL Chloride Lvl 100 95 - 109 02/03/2019 [facility] CHEM PANEL CO2 17 24 - 32 02/03/2019 [facility] CHEM PANEL Calcium Lvl 8.9 8.5 - 10.5 02/03/2019 [facility] CHEM PANEL AGAP 18.9 10.0 - 20.0 02/03/2019 [facility] CHEM PANEL eGFR 17 02/03/2019 Result Comment: The eGFR is calculated using the CKD-EPI formula. In most young, healthy individuals the eGFR will be >90 mL/min/1.73m2. The eGFR declines with age. An eGFR of 60-89 may be normal in some populations, particularly the elderly, for whom the CKD-EPI formula has not been extensively validated. Use of the eGFR is not recommended in the following populations:

Individuals with unstable creatinine concentrations, including patients and those with serious co-morbid conditions.

Patients with extremes in muscle mass or diet.

The data above are obtained from the National Kidney Disease Education Program (NKDEP) which additionally recommends that when the eGFR is used in patients with extremes of body mass index for purposes of drug dosing, the eGFR should be multiplied by the estimated BMI. [facility] HEMATOLOGY WBC 7.7 3.7 - 10.4 02/03/2019 [facility] HEMATOLOGY RBC 3.63 4.70 - 6.10 02/03/2019 [facility] HEMATOLOGY Hgb 10.4 14.0 - 18.0 02/03/2019 [facility] HEMATOLOGY Hct 31.2 42.0 - 54.0 02/03/2019 [facility] HEMATOLOGY MCV 85.9 80.0 - 94.0 02/03/2019 [facility] HEMATOLOGY MCH 28.7 27.0 - 31.0 02/03/2019 [facility] HEMATOLOGY MCHC 33.4 32.0 - 36.0 02/03/2019 [facility] HEMATOLOGY RDW 20.9 11.5 - 14.5 02/03/2019 [facility] HEMATOLOGY Platelet 244 133 - 450 02/03/2019 [facility] HEMATOLOGY MPV 9.1 7.4 - 10.4 02/03/2019 [facility] HEMATOLOGY Segs 76.3 45.0 - 75.0 02/03/2019 [facility] HEMATOLOGY Lymphocytes 15.8 20.0 - 40.0 02/03/2019 [facility] HEMATOLOGY Monocytes 6.5 2.0 - 12.0 02/03/2019 [facility] HEMATOLOGY Eosinophils 0.7 0.0 - 4.0 02/03/2019 [facility] HEMATOLOGY Basophils 0.7 0.0 - 1.0 02/03/2019 [facility] HEMATOLOGY Neutrophils # 5.9 1.5 - 8.1 02/03/2019 [facility] HEMATOLOGY Lymphocytes # 1.2 1.0 - 5.5 02/03/2019 [facility] HEMATOLOGY Monocytes # 0.5 0.0 - 0.8 02/03/2019 [facility] HEMATOLOGY Eosinophils # 0.1 0.0 - 0.5 02/03/2019 [facility] HEMATOLOGY Basophils # 0.1 0.0 - 0.2 02/03/2019 [facility] URINE AND STOOL UA Color Yellow *NA* (02/02/19 9:13 PM) Yellow 02/03/2019 [facility] URINE AND STOOL UA Turbidity Slight *ABN* (02/02/19 9:13 PM) Clear 02/03/2019 [facility] URINE AND STOOL UA Spec Grav 1.016 <=1.030 02/03/2019 [facility] URINE AND STOOL UA pH 6.0 5.0 - 8.0 02/03/2019 [facility] URINE AND STOOL UA Protein >=300 mg/dL Negative mg/dL 02/03/2019 [facility] URINE AND STOOL UA Ketones Negative mg/dL Negative mg/dL 02/03/2019 [facility] URINE AND STOOL UA Bili Negative *NA* (02/02/19 9:13 PM) Negative 02/03/2019 [facility] URINE AND STOOL UA Blood Small *ABN* (02/02/19 9:13 PM) Negative 02/03/2019 [facility] URINE AND STOOL UA Urobilinogen <1.0 0.1 - 1.0 02/03/2019 [facility] URINE AND STOOL UA Nitrite Negative (02/02/19 9:13 PM) Negative 02/03/2019 [facility] URINE AND STOOL UA Leuk Est Negative (02/02/19 9:13 PM) Negative 02/03/2019 [facility] URINE AND STOOL UA Sq Epi Occasional /LPF Few /LPF 02/03/2019 [facility] URINE AND STOOL UA WBC 3 0 - 5 02/03/2019 [facility] URINE AND STOOL UA RBC 26 0 - 2 02/03/2019 [facility] URINE AND STOOL UA Bacteria Occasional /HPF None Seen /HPF 02/03/2019 [facility] URINE AND STOOL UA Mucus Few /LPF None Seen /LPF 02/03/2019 [facility] URINE AND STOOL UA Glucose 50mg/dl 02/03/2019 [facility] CHEM PANEL Ammonia 20.0 <=45.0 uMol/L 02/01/2019 [facility] CHEM PANEL Total Protein 7.7 6.4 - 8.4 02/01/2019 [facility] CHEM PANEL Albumin Lvl 3.9 3.5 - 5.0 02/01/2019 [facility] CHEM PANEL ALT 10 0 - 65 02/01/2019 [facility] CHEM PANEL AST 17 0 - 37 02/01/2019 [facility] CHEM PANEL Alk Phos 144 39 - 136 02/01/2019 [facility] CHEM PANEL Bili Total 0.6 0.2 - 1.3 02/01/2019 [facility] CHEM PANEL Bili Direct 0.2 0.0 - 0.3 02/01/2019 [facility] CHEM PANEL Bili Indirect 0.4 0.0 - 1.0 02/01/2019 [facility] CHEM PANEL Globulin 3.8 2.7 - 4.2 02/01/2019 [facility] CHEM PANEL A/G Ratio 1.0 0.7 - 1.6 02/01/2019 [facility] HEMATOLOGY WBC 6.0 3.7 - 10.4 02/01/2019 [facility] HEMATOLOGY RBC 3.69 4.70 - 6.10 02/01/2019 [facility] HEMATOLOGY Hgb 10.2 14.0 - 18.0 02/01/2019 [facility] HEMATOLOGY Hct 31.5 42.0 - 54.0 02/01/2019 [facility] HEMATOLOGY MCV 85.4 80.0 - 94.0 02/01/2019 [facility] HEMATOLOGY MCH 27.6 27.0 - 31.0 02/01/2019 [facility] HEMATOLOGY MCHC 32.3 32.0 - 36.0 02/01/2019 [facility] HEMATOLOGY RDW 20.4 11.5 - 14.5 02/01/2019 [facility] HEMATOLOGY Platelet 258 133 - 450 02/01/2019 [facility] HEMATOLOGY MPV 8.6 7.4 - 10.4 02/01/2019 [facility] HEMATOLOGY Segs 77.2 45.0 - 75.0 02/01/2019 [facility] HEMATOLOGY Lymphocytes 12.2 20.0 - 40.0 02/01/2019 [facility] HEMATOLOGY Monocytes 7.1 2.0 - 12.0 02/01/2019 [facility] HEMATOLOGY Eosinophils 2.2 0.0 - 4.0 02/01/2019 [facility] HEMATOLOGY Basophils 1.3 0.0 - 1.0 02/01/2019 [facility] HEMATOLOGY Neutrophils # 4.6 1.5 - 8.1 02/01/2019 [facility] HEMATOLOGY Lymphocytes # 0.7 1.0 - 5.5 02/01/2019 [facility] HEMATOLOGY Monocytes # 0.4 0.0 - 0.8 02/01/2019 [facility] HEMATOLOGY Eosinophils # 0.1 0.0 - 0.5 02/01/2019 [facility] HEMATOLOGY Basophils # 0.1 0.0 - 0.2 02/01/2019 [facility] HEMATOLOGY Segs 68.2 45.0 - 75.0 01/31/2019 [facility] HEMATOLOGY Lymphocytes 18.1 20.0 - 40.0 01/31/2019 [facility] HEMATOLOGY Monocytes 8.0 2.0 - 12.0 01/31/2019 [facility] HEMATOLOGY Eosinophils 4.3 0.0 - 4.0 01/31/2019 [facility] HEMATOLOGY Basophils 1.4 0.0 - 1.0 01/31/2019 [facility] HEMATOLOGY Neutrophils # 3.3 1.5 - 8.1 01/31/2019 [facility] HEMATOLOGY Lymphocytes # 0.9 1.0 - 5.5 01/31/2019 [facility] HEMATOLOGY Monocytes # 0.4 0.0 - 0.8 01/31/2019 [facility] HEMATOLOGY Eosinophils # 0.2 0.0 - 0.5 01/31/2019 [facility] HEMATOLOGY Basophils # 0.1 0.0 - 0.2 01/31/2019 [facility] HEMATOLOGY WBC 4.8 3.7 - 10.4 01/31/2019 [facility] HEMATOLOGY RBC 3.16 4.70 - 6.10 01/31/2019 [facility] HEMATOLOGY Hgb 9.1 14.0 - 18.0 01/31/2019 [facility] HEMATOLOGY Hct 27.3 42.0 - 54.0 01/31/2019 [facility] HEMATOLOGY MCV 86.5 80.0 - 94.0 01/31/2019 [facility] HEMATOLOGY MCH 28.9 27.0 - 31.0 01/31/2019 [facility] HEMATOLOGY MCHC 33.4 32.0 - 36.0 01/31/2019 [facility] HEMATOLOGY RDW 21.0 11.5 - 14.5 01/31/2019 [facility] HEMATOLOGY Platelet 211 133 - 450 01/31/2019 [facility] HEMATOLOGY MPV 8.6 7.4 - 10.4 01/31/2019 [facility] HEMATOLOGY PT 14.3 12.0 - 14.7 01/30/2019 [facility] HEMATOLOGY INR 1.13 0.85 - 1.17 01/30/2019 [facility] HEMATOLOGY PTT 32.3 22.9 - 35.8 01/30/2019 [facility] CHEM PANEL Magnesium Lvl 1.8 1.8 - 2.4 01/30/2019 [facility] CHEM PANEL Phosphorus 2.9 2.5 - 4.5 01/30/2019 [facility] HEMATOLOGY PT 14.6 12.0 - 14.7 01/29/2019 [facility] HEMATOLOGY INR 1.16 0.85 - 1.17 01/29/2019 [facility] HEMATOLOGY PTT 68.2 22.9 - 35.8 01/29/2019 [facility] HEMATOLOGY PT 14.5 12.0 - 14.7 01/29/2019 [facility] HEMATOLOGY INR 1.15 0.85 - 1.17 01/29/2019 [facility] HEMATOLOGY PTT 66.3 22.9 - 35.8 01/29/2019 [facility] BLOOD BANK RESULTS ABO/Rh O NEG 01/29/2019 [facility] BLOOD BANK RESULTS Antibody Scrn Negative (01/29/19 3:18 AM) 01/29/2019 [facility] HEMATOLOGY Anisocyte 1+ *ABN* (01/29/19 3:12 AM) None Seen 01/29/2019 [facility] IMMUNOLOGY Homocyst Tot 12.7 3.7 - 13.9 01/28/2019 [facility] AMINO ACID MMA Qnt 271 0 - 378 01/28/2019 [facility] AMINO ACID Disclaimer (Org Acid) Comment 01/28/2019 Result Comment:
This test was developed and its performance characteristics
determined by [facility]. It has not been cleared or
approved by the Food and Drug Administration.
Performed At: [facility]
[address] [place] [id number]
Chaim Petit MD Ph:[phone] [facility] ANEMIA STUDY Ferritin Lvl 49 22 - 275 01/28/2019 [facility] ANEMIA STUDY Iron 27 45 - 160 01/28/2019 [facility] ANEMIA STUDY TIBC 323 228 - 428 01/28/2019 [facility] ANEMIA STUDY UIBC 296 110 - 370 01/28/2019 [facility] ANEMIA STUDY % Satur Fe 8 12 - 57 01/28/2019 [facility] ANEMIA STUDY Folate Lvl 24.6 >=3.0 ng/mL 01/28/2019 [facility] ANEMIA STUDY Vitamin B12 Lvl 957 254 - 1320 01/28/2019 [facility] CHEM PANEL Bili Total 0.4 0.2 - 1.3 01/28/2019 [facility] CHEM PANEL Bili Direct 0.1 0.0 - 0.3 01/28/2019 [facility] CHEM PANEL Bili Indirect 0.3 0.0 - 1.0 01/28/2019 [facility] CHEM PANEL Erythropoietin 41.2 2.6 - 18.5 01/28/2019 Result Comment: [place] [employer] DxI 800 Immunoassay System

Values obtained with different assay methods or kits cannot
be used interchangeably. Results cannot be interpreted as
absolute evidence of the presence or absence of malignant
disease.
Performed At: [facility]
[address] [place], [place] [id number]
Chaim Petit MD Ph:[phone] [facility] HEMATOLOGY Retic Auto 1.0 0.5 - 1.5 01/28/2019 [facility] HEMATOLOGY PB Smear Path Peripheral blood smear shows hypochromic anemia with anisopoikilocytosis, slight polychromasia. Impression: iron deficiency anemia vs. anemia of chronic disease. CPT: 97483 01/28/2019 [facility] BLOOD BANK RESULTS RBC product Product available (01/28/19 6:28 AM) 01/28/2019 [facility] BLOOD BANK RESULTS RBC product Product available (01/28/19 6:24 AM) 01/28/2019 [facility] CHEM PANEL Magnesium Lvl 1.9 1.8 - 2.4 01/28/2019 [facility] CHEM PANEL Phosphorus 3.7 2.5 - 4.5 01/28/2019 [facility] HEMATOLOGY Anisocyte 1+ *ABN* (01/28/19 3:46 AM) None Seen 01/28/2019 [facility] HEMATOLOGY Microcyte 1+ *ABN* (01/28/19 3:46 AM) None Seen 01/28/2019 [facility] CHEM PANEL B/C Ratio 20 6 - 25 01/27/2019 [facility] CHEM PANEL Total Protein 7.0 6.4 - 8.4 01/27/2019 [facility] CHEM PANEL Albumin Lvl 3.7 3.5 - 5.0 01/27/2019 [facility] CHEM PANEL Globulin 3.3 2.7 - 4.2 01/27/2019 [facility] CHEM PANEL A/G Ratio 1.1 0.7 - 1.6 01/27/2019 [facility] CHEM PANEL ALT 10 0 - 65 01/27/2019 [facility] CHEM PANEL AST 10 0 - 37 01/27/2019 [facility] CHEM PANEL Alk Phos 153 39 - 136 01/27/2019 [facility] CHEM PANEL Bili Total 0.3 0.2 - 1.3 01/27/2019 [facility] HEMATOLOGY Anisocyte 1+ *ABN* (01/27/19 6:04 AM) None Seen 01/27/2019 [facility] PARATHYROID PROFILE Ca Ion WB 1.35 1.05 - 1.25 01/27/2019 [facility] PARATHYROID PROFILE Ca Norm WB 1.29 1.05 - 1.25 01/27/2019 [facility] BACTERIAL - SEROLOGY MRSA by PCR Negative (01/26/19 1:34 PM) 01/26/2019 [facility] CARDIAC ENZYMES Troponin-I <0.02 0.00 - 0.40 01/26/2019 [facility] CHEM PANEL Magnesium Lvl 2.1 1.8 - 2.4 01/26/2019 [facility] CHEM PANEL Phosphorus 4.7 2.5 - 4.5 01/26/2019 [facility] CHEM PANEL Total Protein 5.8 6.4 - 8.4 01/26/2019 [facility] CHEM PANEL Albumin Lvl 2.9 3.5 - 5.0 01/26/2019 [facility] CHEM PANEL Globulin 2.9 2.7 - 4.2 01/26/2019 [facility] CHEM PANEL A/G Ratio 1.0 0.7 - 1.6 01/26/2019 [facility] CHEM PANEL ALT 11 0 - 65 01/26/2019 [facility] CHEM PANEL AST 9 0 - 37 01/26/2019 [facility] CHEM PANEL Alk Phos 117 39 - 136 01/26/2019 [facility] CHEM PANEL Bili Direct <0.1 0.0 - 0.3 01/26/2019 [facility] CHEM PANEL Bili Indirect Unable to Calculate 0.0 - 1.0 01/26/2019 [facility] HEMATOLOGY Plt Morph Normal (01/26/19 1:34 PM) Normal 01/26/2019 [facility] HEMATOLOGY Microcyte 1+ *ABN* (01/26/19 1:34 PM) None Seen 01/26/2019 [facility] LIPIDS Trig 87 <=149 mg/dL 01/26/2019 [facility] LIPIDS Chol 109 <=199 mg/dL 01/26/2019 [facility] LIPIDS HDL 34 >=61 mg/dL 01/26/2019 [facility] LIPIDS LDL (Calculated) 58 <=99 mg/dL 01/26/2019 [facility] LIPIDS VLDL 17 01/26/2019 [facility] LIPIDS CHD Risk 3.21 4.00 - 7.30 01/26/2019 [facility] PARATHYROID PROFILE Ca Ion WB 1.25 1.05 - 1.25 01/26/2019 [facility] PARATHYROID PROFILE Ca Norm WB 1.18 1.05 - 1.25 01/26/2019 [facility] SPECIAL CHEMISTRY Hgb A1C <3.5 % <=5.6 % 01/26/2019 [facility] URINE AND STOOL UA Color Light Yellow *NA* (01/26/19 1:34 PM) Yellow 01/26/2019 [facility] URINE AND STOOL UA Turbidity Slight *ABN* (01/26/19 1:34 PM) Clear 01/26/2019 [facility] URINE AND STOOL UA Spec Grav 1.010 <=1.030 01/26/2019 [facility] URINE AND STOOL UA pH 5.0 5.0 - 8.0 01/26/2019 [facility] URINE AND STOOL UA Protein Negative mg/dL Negative mg/dL 01/26/2019 [facility] URINE AND STOOL UA Glucose Negative mg/dL Negative mg/dL 01/26/2019 [facility] URINE AND STOOL UA Ketones Negative mg/dL Negative mg/dL 01/26/2019 [facility] URINE AND STOOL UA Bili Negative *NA* (01/26/19 1:34 PM) Negative 01/26/2019 [facility] URINE AND STOOL UA Blood Negative (01/26/19 1:34 PM) Negative 01/26/2019 [facility] URINE AND STOOL UA Urobilinogen <1.0 0.1 - 1.0 01/26/2019 [facility] URINE AND STOOL UA Nitrite Negative (01/26/19 1:34 PM) Negative 01/26/2019 [facility] URINE AND STOOL UA Leuk Est Negative (01/26/19 1:34 PM) Negative 01/26/2019 [facility] URINE AND STOOL UA WBC <1 0 - 5 01/26/2019 [facility] URINE AND STOOL UA RBC 1 0 - 2 01/26/2019 [facility] URINE AND STOOL UA Bacteria Occasional /HPF None Seen /HPF 01/26/2019 [facility] URINE AND STOOL UA Sq Epi None Seen 01/26/2019 [facility] BLOOD BANK RESULTS ABO/Rh O NEG 01/26/2019 [facility] BLOOD BANK RESULTS Antibody Scrn Negative (01/26/19 5:40 AM) 01/26/2019 [facility] BLOOD BANK RESULTS ABO/Rh O NEG 11/07/2018 [facility] BLOOD BANK RESULTS Antibody Scrn Negative (11/07/18 12:38 AM) 11/07/2018 [facility] CHEM PANEL eGFR 53 11/07/2018 Result Comment: The eGFR is calculated using the CKD-EPI formula. In most young, healthy individuals the eGFR will be >90 mL/min/1.73m2. The eGFR declines with age. An eGFR of 60-89 may be normal in some populations, particularly the elderly, for whom the CKD-EPI formula has not been extensively validated. Use of the eGFR is not recommended in the following populations:

Individuals with unstable creatinine concentrations, including patients and those with serious co-morbid conditions.

Patients with extremes in muscle mass or diet.

The data above are obtained from the National Kidney Disease Education Program (NKDEP) which additionally recommends that when the eGFR is used in patients with extremes of body mass index for purposes of drug dosing, the eGFR should be multiplied by the estimated BMI. [facility] CHEM PANEL Glucose Lvl 103 70 - 99 11/07/2018 [facility] CHEM PANEL CO2 26 24 - 32 11/07/2018 [facility] CHEM PANEL Calcium Lvl 8.9 8.5 - 10.5 11/07/2018 [facility] CHEM PANEL Creatinine Lvl 1.36 0.50 - 1.40 11/07/2018 [facility] CHEM PANEL BUN 23 7 - 22 11/07/2018 [facility] CHEM PANEL Sodium Lvl 141 135 - 145 11/07/2018 [facility] CHEM PANEL Chloride Lvl 112 95 - 109 11/07/2018 [facility] CHEM PANEL Potassium Lvl 4.3 3.5 - 5.1 11/07/2018 [facility] CHEM PANEL AGAP 7.3 10.0 - 20.0 11/07/2018 [facility] HEMATOLOGY Basophils # 0.1 0.0 - 0.2 11/07/2018 [facility] HEMATOLOGY Anisocyte 1+ *ABN* (11/07/18 12:38 AM) None Seen 11/07/2018 [facility] HEMATOLOGY Lymphocytes # 1.2 1.0 - 5.5 11/07/2018 [facility] HEMATOLOGY Neutrophils # 5.9 1.5 - 8.1 11/07/2018 [facility] HEMATOLOGY Eosinophils # 0.3 0.0 - 0.5 11/07/2018 [facility] HEMATOLOGY Monocytes # 0.5 0.0 - 0.8 11/07/2018 [facility] HEMATOLOGY Lymphocytes 14.4 20.0 - 40.0 11/07/2018 [facility] HEMATOLOGY Segs 73.6 45.0 - 75.0 11/07/2018 [facility] HEMATOLOGY Basophils 1.4 0.0 - 1.0 11/07/2018 [facility] HEMATOLOGY Eosinophils 4.0 0.0 - 4.0 11/07/2018 [facility] HEMATOLOGY Monocytes 6.6 2.0 - 12.0 11/07/2018 [facility] HEMATOLOGY PT 15.3 12.0 - 14.7 11/07/2018 [facility] HEMATOLOGY PTT 39.1 22.9 - 35.8 11/07/2018 [facility] HEMATOLOGY INR 1.23 0.85 - 1.17 11/07/2018 [facility] HEMATOLOGY MPV 7.6 7.4 - 10.4 11/07/2018 [facility] HEMATOLOGY Platelet 390 133 - 450 11/07/2018 [facility] HEMATOLOGY MCHC 32.3 32.0 - 36.0 11/07/2018 [facility] HEMATOLOGY MCH 28.6 27.0 - 31.0 11/07/2018 [facility] HEMATOLOGY MCV 88.7 80.0 - 94.0 11/07/2018 [facility] HEMATOLOGY Hct 25.2 42.0 - 54.0 11/07/2018 [facility] HEMATOLOGY RDW 21.1 11.5 - 14.5 11/07/2018 [facility] HEMATOLOGY Hgb 8.1 14.0 - 18.0 11/07/2018 [facility] HEMATOLOGY RBC 2.84 4.70 - 6.10 11/07/2018 [facility] HEMATOLOGY WBC 8.0 3.7 - 10.4 11/07/2018 [facility] ELECTROLYTES CO2 25 24 - 32 11/06/2018 [facility] ELECTROLYTES eGFR 42 11/06/2018 Result Comment: The eGFR is calculated using the CKD-EPI formula. In most young, healthy individuals the eGFR will be >90 mL/min/1.73m2. The eGFR declines with age. An eGFR of 60-89 may be normal in some populations, particularly the elderly, for whom the CKD-EPI formula has not been extensively validated. Use of the eGFR is not recommended in the following populations:

Individuals with unstable creatinine concentrations, including patients and those with serious co-morbid conditions.

Patients with extremes in muscle mass or diet.

The data above are obtained from the National Kidney Disease Education Program (NKDEP) which additionally recommends that when the eGFR is used in patients with extremes of body mass index for purposes of drug dosing, the eGFR should be multiplied by the estimated BMI. [facility] ELECTROLYTES Calcium Lvl 8.9 8.5 - 10.5 11/06/2018 [facility] ELECTROLYTES AGAP 7.5 10.0 - 20.0 11/06/2018 [facility] ELECTROLYTES BUN 25 7 - 22 11/06/2018 [facility] ELECTROLYTES Creatinine Lvl 1.64 0.50 - 1.40 11/06/2018 [facility] ELECTROLYTES Sodium Lvl 139 135 - 145 11/06/2018 [facility] ELECTROLYTES Glucose Lvl 122 70 - 99 11/06/2018 [facility] ELECTROLYTES Chloride Lvl 111 95 - 109 11/06/2018 [facility] ELECTROLYTES Potassium Lvl 4.5 3.5 - 5.1 11/06/2018 [facility] CHEM PANEL eGFR 39 11/05/2018 Result Comment: The eGFR is calculated using the CKD-EPI formula. In most young, healthy individuals the eGFR will be >90 mL/min/1.73m2. The eGFR declines with age. An eGFR of 60-89 may be normal in some populations, particularly the elderly, for whom the CKD-EPI formula has not been extensively validated. Use of the eGFR is not recommended in the following populations:

Individuals with unstable creatinine concentrations, including patients and those with serious co-morbid conditions.

Patients with extremes in muscle mass or diet.

The data above are obtained from the National Kidney Disease Education Program (NKDEP) which additionally recommends that when the eGFR is used in patients with extremes of body mass index for purposes of drug dosing, the eGFR should be multiplied by the estimated BMI. [facility] CHEM PANEL Glucose Lvl 123 70 - 99 11/05/2018 [facility] CHEM PANEL BUN 25 7 - 22 11/05/2018 [facility] CHEM PANEL Chloride Lvl 112 95 - 109 11/05/2018 [facility] CHEM PANEL CO2 25 24 - 32 11/05/2018 [facility] CHEM PANEL Calcium Lvl 8.4 8.5 - 10.5 11/05/2018 [facility] CHEM PANEL Creatinine Lvl 1.73 0.50 - 1.40 11/05/2018 [facility] CHEM PANEL Sodium Lvl 142 135 - 145 11/05/2018 [facility] CHEM PANEL Potassium Lvl 4.6 3.5 - 5.1 11/05/2018 [facility] CHEM PANEL AGAP 9.6 10.0 - 20.0 11/05/2018 [facility] HEMATOLOGY MPV 7.5 7.4 - 10.4 11/05/2018 [facility] HEMATOLOGY WBC 7.7 3.7 - 10.4 11/05/2018 [facility] HEMATOLOGY Hgb 8.4 14.0 - 18.0 11/05/2018 [facility] HEMATOLOGY Hct 25.9 42.0 - 54.0 11/05/2018 [facility] [facility] HEMATOLOGY RBC 2.93 4.70 - 6.10 11/05/2018 [facility] HEMATOLOGY MCV 88.4 80.0 - 94.0 11/05/2018 [facility] HEMATOLOGY Platelet 397 133 - 450 11/05/2018 [facility] HEMATOLOGY RDW 20.1 11.5 - 14.5 11/05/2018 [facility] HEMATOLOGY MCHC 32.3 32.0 - 36.0 11/05/2018 [facility] HEMATOLOGY MCH 28.5 27.0 - 31.0 11/05/2018 [facility] HEMATOLOGY Monocytes # 0.6 0.0 - 0.8 11/05/2018 [facility] HEMATOLOGY Neutrophils # 5.7 1.5 - 8.1 11/05/2018 [facility] HEMATOLOGY Lymphocytes # 1.0 1.0 - 5.5 11/05/2018 [facility] HEMATOLOGY Eosinophils 2.9 0.0 - 4.0 11/05/2018 [facility] HEMATOLOGY Basophils 1.2 0.0 - 1.0 11/05/2018 [facility] HEMATOLOGY Basophils # 0.1 0.0 - 0.2 11/05/2018 [facility] HEMATOLOGY Eosinophils # 0.2 0.0 - 0.5 11/05/2018 [facility] HEMATOLOGY Lymphocytes 13.4 20.0 - 40.0 11/05/2018 [facility] HEMATOLOGY Segs 74.7 45.0 - 75.0 11/05/2018 [facility] HEMATOLOGY Monocytes 7.8 2.0 - 12.0 11/05/2018 [facility] HEMATOLOGY Hgb 8.7 14.0 - 18.0 11/04/2018 [facility] BLOOD BANK RESULTS Antibody Scrn Negative (11/03/18 4:04 AM) 11/03/2018 [facility] BLOOD BANK RESULTS ABO/Rh O NEG 11/03/2018 [facility] HEMATOLOGY Monocytes # 0.5 0.0 - 0.8 11/03/2018 [facility] HEMATOLOGY Basophils # 0.1 0.0 - 0.2 11/03/2018 [facility] HEMATOLOGY Eosinophils # 0.2 0.0 - 0.5 11/03/2018 [facility] HEMATOLOGY Basophils 0.8 0.0 - 1.0 11/03/2018 [facility] HEMATOLOGY Eosinophils 2.7 0.0 - 4.0 11/03/2018 [facility] HEMATOLOGY Monocytes 6.6 2.0 - 12.0 11/03/2018 [facility] HEMATOLOGY Neutrophils # 5.3 1.5 - 8.1 11/03/2018 [facility] HEMATOLOGY Lymphocytes # 0.8 1.0 - 5.5 11/03/2018 [facility] HEMATOLOGY Lymphocytes 12.3 20.0 - 40.0 11/03/2018 [facility] HEMATOLOGY Segs 77.6 45.0 - 75.0 11/03/2018 [facility] HEMATOLOGY RDW 19.6 11.5 - 14.5 11/03/2018 [facility] HEMATOLOGY MCHC 33.2 32.0 - 36.0 11/03/2018 [facility] HEMATOLOGY MCH 28.3 27.0 - 31.0 11/03/2018 [facility] HEMATOLOGY Platelet 368 133 - 450 11/03/2018 [facility] HEMATOLOGY RBC 2.53 4.70 - 6.10 11/03/2018 [facility] HEMATOLOGY WBC 6.9 3.7 - 10.4 11/03/2018 [facility] HEMATOLOGY MCV 85.4 80.0 - 94.0 11/03/2018 [facility] HEMATOLOGY Hct 21.6 42.0 - 54.0 11/03/2018 [facility] HEMATOLOGY MPV 7.8 7.4 - 10.4 11/03/2018 [facility] BLOOD BANK RESULTS RBC product Product available (11/02/18 10:53 AM) 11/02/2018 [facility] BLOOD BANK RESULTS ABO/Rh O NEG 10/30/2018 [facility] BLOOD BANK RESULTS Antibody Scrn Negative (10/30/18 4:46 AM) 10/30/2018 [facility] CARDIAC ENZYMES Total CK 28 12 - 191 10/30/2018 [facility] CHEM PANEL Vitamin D, 25-OH, Total 29.7 30.0 - 100.0 10/30/2018 [facility] HEMATOLOGY Sed Rate 65 0 - 15 10/30/2018 [facility] HEMATOLOGY PTT 29.7 22.9 - 35.8 10/30/2018 [facility] HEMATOLOGY PT 16.0 12.0 - 14.7 10/30/2018 [facility] HEMATOLOGY INR 1.31 0.85 - 1.17 10/30/2018 [facility] IMMUNOLOGY C-REACTIVE PROTEIN 76.6 <=2.9 mg/L 10/30/2018 [facility] SPECIAL CHEMISTRY Hgb A1C 5.8 <=5.6 % 10/30/2018 [facility] TOXICOLOGY Vanco Tr 29.1 08/06/2018 [facility] TOXICOLOGY Vanco Tr TND 1700 08/06/2018 [facility] CHEM PANEL Phosphorus 2.7 2.5 - 4.5 08/06/2018 [facility] CHEM PANEL Magnesium Lvl 1.8 1.8 - 2.4 08/06/2018 [facility] ELECTROLYTES AGAP 14.5 10.0 - 20.0 08/06/2018 [facility] ELECTROLYTES eGFR 46 08/06/2018 Result Comment: The eGFR is calculated using the CKD-EPI formula. In most young, healthy individuals the eGFR will be >90 mL/min/1.73m2. The eGFR declines with age. An eGFR of 60-89 may be normal in some populations, particularly the elderly, for whom the CKD-EPI formula has not been extensively validated. Use of the eGFR is not recommended in the following populations:

Individuals with unstable creatinine concentrations, including patients and those with serious co-morbid conditions.

Patients with extremes in muscle mass or diet.

The data above are obtained from the National Kidney Disease Education Program (NKDEP) which additionally recommends that when the eGFR is used in patients with extremes of body mass index for purposes of drug dosing, the eGFR should be multiplied by the estimated BMI. [facility] ELECTROLYTES Calcium Lvl 9.9 8.5 - 10.5 08/06/2018 [facility] ELECTROLYTES Sodium Lvl 138 135 - 145 08/06/2018 [facility] ELECTROLYTES Creatinine Lvl 1.54 0.50 - 1.40 08/06/2018 [facility] ELECTROLYTES CO2 20 24 - 32 08/06/2018 [facility] ELECTROLYTES Chloride Lvl 108 95 - 109 08/06/2018 [facility] ELECTROLYTES Potassium Lvl 4.5 3.5 - 5.1 08/06/2018 [facility] ELECTROLYTES Glucose Lvl 118 70 - 99 08/06/2018 [facility] ELECTROLYTES BUN 22 7 - 22 08/06/2018 [facility] HEMATOLOGY MPV 7.6 7.4 - 10.4 08/06/2018 [facility] HEMATOLOGY RDW 18.4 11.5 - 14.5 08/06/2018 [facility] HEMATOLOGY MCHC 32.1 32.0 - 36.0 08/06/2018 [facility] HEMATOLOGY MCH 27.7 27.0 - 31.0 08/06/2018 [facility] HEMATOLOGY MCV 86.3 80.0 - 94.0 08/06/2018 [facility] HEMATOLOGY Platelet 347 133 - 450 08/06/2018 [facility] HEMATOLOGY WBC 7.4 3.7 - 10.4 08/06/2018 [facility] HEMATOLOGY Hct 34.1 42.0 - 54.0 08/06/2018 [facility] HEMATOLOGY Hgb 10.9 14.0 - 18.0 08/06/2018 [facility] HEMATOLOGY RBC 3.95 4.70 - 6.10 08/06/2018 [facility] HEMATOLOGY Monocytes # 0.4 0.0 - 0.8 08/06/2018 [facility] HEMATOLOGY Basophils 2.6 0.0 - 1.0 08/06/2018 [facility] HEMATOLOGY Lymphocytes # 1.2 1.0 - 5.5 08/06/2018 [facility] HEMATOLOGY Eosinophils # 0.3 0.0 - 0.5 08/06/2018 [facility] HEMATOLOGY Basophils # 0.2 0.0 - 0.2 08/06/2018 [facility] HEMATOLOGY Neutrophils # 5.3 1.5 - 8.1 08/06/2018 [facility] HEMATOLOGY Lymphocytes 16.0 20.0 - 40.0 08/06/2018 [facility] HEMATOLOGY Monocytes 5.7 2.0 - 12.0 08/06/2018 [facility] HEMATOLOGY Eosinophils 4.2 0.0 - 4.0 08/06/2018 [facility] HEMATOLOGY Segs 71.5 45.0 - 75.0 08/06/2018 [facility] CHEM PANEL Magnesium Lvl 1.9 1.8 - 2.4 08/05/2018 [facility] CHEM PANEL Phosphorus 2.9 2.5 - 4.5 08/05/2018 [facility] ELECTROLYTES AGAP 6.4 10.0 - 20.0 08/05/2018 [facility] ELECTROLYTES Glucose Lvl 119 70 - 99 08/05/2018 [facility] ELECTROLYTES BUN 22 7 - 22 08/05/2018 [facility] ELECTROLYTES Chloride Lvl 108 95 - 109 08/05/2018 [facility] ELECTROLYTES CO2 28 24 - 32 08/05/2018 [facility] ELECTROLYTES Sodium Lvl 138 135 - 145 08/05/2018 [facility] ELECTROLYTES Creatinine Lvl 1.34 0.50 - 1.40 08/05/2018 [facility] ELECTROLYTES Potassium Lvl 4.4 3.5 - 5.1 08/05/2018 [facility] ELECTROLYTES Calcium Lvl 9.5 8.5 - 10.5 08/05/2018 [facility] ELECTROLYTES eGFR 54 08/05/2018 Result Comment: The eGFR is calculated using the CKD-EPI formula. In most young, healthy individuals the eGFR will be >90 mL/min/1.73m2. The eGFR declines with age. An eGFR of 60-89 may be normal in some populations, particularly the elderly, for whom the CKD-EPI formula has not been extensively validated. Use of the eGFR is not recommended in the following populations:

Individuals with unstable creatinine concentrations, including patients and those with serious co-morbid conditions.

Patients with extremes in muscle mass or diet.

The data above are obtained from the National Kidney Disease Education Program (NKDEP) which additionally recommends that when the eGFR is used in patients with extremes of body mass index for purposes of drug dosing, the eGFR should be multiplied by the estimated BMI. [facility] HEMATOLOGY Eosinophils # 0.3 0.0 - 0.5 08/05/2018 [facility] HEMATOLOGY Basophils # 0.1 0.0 - 0.2 08/05/2018 [facility] HEMATOLOGY Monocytes # 0.4 0.0 - 0.8 08/05/2018 [facility] HEMATOLOGY Monocytes 5.6 2.0 - 12.0 08/05/2018 [facility] HEMATOLOGY Eosinophils 4.5 0.0 - 4.0 08/05/2018 [facility] HEMATOLOGY Lymphocytes 19.2 20.0 - 40.0 08/05/2018 [facility] HEMATOLOGY Segs 68.4 45.0 - 75.0 08/05/2018 [facility] HEMATOLOGY Basophils 2.3 0.0 - 1.0 08/05/2018 [facility] HEMATOLOGY Lymphocytes # 1.2 1.0 - 5.5 08/05/2018 [facility] HEMATOLOGY Neutrophils # 4.4 1.5 - 8.1 08/05/2018 [facility] HEMATOLOGY WBC 6.4 3.7 - 10.4 08/05/2018 [facility] HEMATOLOGY MCV 85.0 80.0 - 94.0 08/05/2018 [facility] HEMATOLOGY MCH 27.9 27.0 - 31.0 08/05/2018 [facility] HEMATOLOGY RDW 18.3 11.5 - 14.5 08/05/2018 [facility] HEMATOLOGY MCHC 32.9 32.0 - 36.0 08/05/2018 [facility] HEMATOLOGY Hgb 10.4 14.0 - 18.0 08/05/2018 [facility] HEMATOLOGY RBC 3.72 4.70 - 6.10 08/05/2018 [facility] HEMATOLOGY Hct 31.7 42.0 - 54.0 08/05/2018 [facility] HEMATOLOGY Platelet 345 133 - 450 08/05/2018 [facility] HEMATOLOGY MPV 7.4 7.4 - 10.4 08/05/2018 [facility] PARATHYROID PROFILE Ca Norm WB 1.29 1.05 - 1.25 08/05/2018 [facility] PARATHYROID PROFILE Ca Ion WB 1.26 1.05 - 1.25 08/05/2018 [facility] TOXICOLOGY Vanco Tr 27.1 08/05/2018 [facility] TOXICOLOGY Vanco Tr TND 1630 08/05/2018 [facility] CHEM PANEL eGFR 52 08/04/2018 Result Comment: The eGFR is calculated using the CKD-EPI formula. In most young, healthy individuals the eGFR will be >90 mL/min/1.73m2. The eGFR declines with age. An eGFR of 60-89 may be normal in some populations, particularly the elderly, for whom the CKD-EPI formula has not been extensively validated. Use of the eGFR is not recommended in the following populations:

Individuals with unstable creatinine concentrations, including patients and those with serious co-morbid conditions.

Patients with extremes in muscle mass or diet.

The data above are obtained from the National Kidney Disease Education Program (NKDEP) which additionally recommends that when the eGFR is used in patients with extremes of body mass index for purposes of drug dosing, the eGFR should be multiplied by the estimated BMI. [facility] CHEM PANEL Calcium Lvl 9.6 8.5 - 10.5 08/04/2018 [facility] CHEM PANEL AGAP 10.6 10.0 - 20.0 08/04/2018 [facility] CHEM PANEL CO2 27 24 - 32 08/04/2018 [facility] CHEM PANEL BUN 23 7 - 22 08/04/2018 [facility] CHEM PANEL Creatinine Lvl 1.39 0.50 - 1.40 08/04/2018 [facility] CHEM PANEL Potassium Lvl 4.6 3.5 - 5.1 08/04/2018 [facility] CHEM PANEL Sodium Lvl 138 135 - 145 08/04/2018 [facility] CHEM PANEL Chloride Lvl 105 95 - 109 08/04/2018 [facility] CHEM PANEL Glucose Lvl 147 70 - 99 08/04/2018 [facility] CHEM PANEL Magnesium Lvl 1.8 1.8 - 2.4 08/04/2018 [facility] CHEM PANEL Phosphorus 2.4 2.5 - 4.5 08/04/2018 [facility] HEMATOLOGY WBC 6.3 3.7 - 10.4 08/04/2018 [facility] HEMATOLOGY RBC 3.80 4.70 - 6.10 08/04/2018 [facility] HEMATOLOGY Hgb 10.6 14.0 - 18.0 08/04/2018 [facility] HEMATOLOGY Hct 32.2 42.0 - 54.0 08/04/2018 [facility] HEMATOLOGY MCH 27.7 27.0 - 31.0 08/04/2018 [facility] HEMATOLOGY MCV 84.6 80.0 - 94.0 08/04/2018 [facility] HEMATOLOGY MCHC 32.8 32.0 - 36.0 08/04/2018 [facility] HEMATOLOGY RDW 18.0 11.5 - 14.5 08/04/2018 [facility] HEMATOLOGY Platelet 372 133 - 450 08/04/2018 [facility] HEMATOLOGY MPV 7.5 7.4 - 10.4 08/04/2018 [facility] HEMATOLOGY Lymphocytes # 0.8 1.0 - 5.5 08/04/2018 [facility] HEMATOLOGY Neutrophils # 4.8 1.5 - 8.1 08/04/2018 [facility] HEMATOLOGY Monocytes # 0.3 0.0 - 0.8 08/04/2018 [facility] HEMATOLOGY Basophils # 0.1 0.0 - 0.2 08/04/2018 [facility] HEMATOLOGY Eosinophils # 0.2 0.0 - 0.5 08/04/2018 [facility] HEMATOLOGY Lymphocytes 12.8 20.0 - 40.0 08/04/2018 [facility] HEMATOLOGY Segs 75.8 45.0 - 75.0 08/04/2018 [facility] HEMATOLOGY Basophils 2.1 0.0 - 1.0 08/04/2018 [facility] HEMATOLOGY Monocytes 5.5 2.0 - 12.0 08/04/2018 [facility] HEMATOLOGY Eosinophils 3.8 0.0 - 4.0 08/04/2018 [facility] TOXICOLOGY Vanco Tr TND 1000 08/03/2018 [facility] TOXICOLOGY Vanco Tr 22.3 08/03/2018 [facility] PARATHYROID PROFILE Ca Ion WB 1.31 1.05 - 1.25 08/03/2018 [facility] PARATHYROID PROFILE Ca Norm WB 1.30 1.05 - 1.25 08/03/2018 [facility] HEMATOLOGY PTT 55.9 22.9 - 35.8 08/02/2018 [facility] PARATHYROID PROFILE Ca Ion WB 1.28 1.05 - 1.25 08/02/2018 [facility] PARATHYROID PROFILE Ca Norm WB 1.23 1.05 - 1.25 08/02/2018 [facility] BODY FLUIDS Crystal BF Type Other (08/01/18 5:02 PM) 08/01/2018 [facility] BODY FLUIDS Crystal BF Negative (08/01/18 5:02 PM) Negative 08/01/2018 [facility] MEROPENEM:SUSC:PT:ISOLATE:ORDQN:JACQUELINE Gram Stain Report Gram Stain Performed By: [facility] 08/01/2018 [facility] MEROPENEM:SUSC:PT:ISOLATE:ORDQN:JACQUELINE Culture: Aspirate/Body Fluid/Tissue Rare Methicillin Resistant Staphylococcus aureus 08/01/2018 [facility] MEROPENEM:SUSC:PT:ISOLATE:ORDQN:JACQUELINE Methicillin Resistant Staphylococcus aureus Methicillin Resistant Staphylococcus aureus 08/01/2018 [facility] Culture: Anaerobic No Anaerobes Isolated After 5 Days 08/01/2018 [facility] HEMATOLOGY PTT 76.4 22.9 - 35.8 08/01/2018 [facility] HEMATOLOGY PTT 77.3 22.9 - 35.8 07/31/2018 [facility] HEMATOLOGY INR 1.30 0.85 - 1.17 07/31/2018 [facility] HEMATOLOGY PT 15.9 12.0 - 14.7 07/31/2018 [facility] HEMATOLOGY INR 1.33 0.85 - 1.17 07/31/2018 [facility] HEMATOLOGY PT 16.2 12.0 - 14.7 07/31/2018 [facility] TOXICOLOGY Vanco Lvl 4.9 07/30/2018 [facility] HEMATOLOGY INR 1.40 0.85 - 1.17 07/30/2018 [facility] HEMATOLOGY PT 16.9 12.0 - 14.7 07/30/2018 [facility] URINE AND STOOL UA Sq Epi None Seen 07/29/2018 [facility] URINE AND STOOL UA Urobilinogen <=1.0 mg/dL 0.1 - 1.0 07/29/2018 [facility] URINE AND STOOL UA Leuk Est Negative (07/29/18 8:14 AM) Negative 07/29/2018 [facility] URINE AND STOOL UA RBC 1 0 - 2 07/29/2018 [facility] URINE AND STOOL UA Ketones Negative mg/dL Negative mg/dL 07/29/2018 [facility] URINE AND STOOL UA Bili Negative *NA* (07/29/18 8:14 AM) Negative 07/29/2018 [facility] URINE AND STOOL UA Blood Negative (07/29/18 8:14 AM) Negative 07/29/2018 [facility] URINE AND STOOL UA Nitrite Negative (07/29/18 8:14 AM) Negative 07/29/2018 [facility] URINE AND STOOL UA Color Yellow *NA* (07/29/18 8:14 AM) Yellow 07/29/2018 [facility] URINE AND STOOL UA Turbidity Clear (07/29/18 8:14 AM) Clear 07/29/2018 [facility] URINE AND STOOL UA Spec Grav 1.011 <=1.030 07/29/2018 [facility] URINE AND STOOL UA Protein 30 mg/dL Negative mg/dL 07/29/2018 [facility] URINE AND STOOL UA pH 5.5 5.0 - 8.0 07/29/2018 [facility] URINE AND STOOL UA Glucose Negative mg/dL Negative mg/dL 07/29/2018 [facility] URINE CHEM U Sodium 79 07/29/2018 [facility] URINE CHEM U Chloride 86 07/29/2018 [facility] URINE CHEM U Potassium 21.8 07/29/2018 [facility] URINE CHEM U Urea 556 07/29/2018 [facility] CHEM PANEL Lactic Acid Lvl 0.5 0.5 - 2.2 07/29/2018 [facility] IMMUNOLOGY C-REACTIVE PROTEIN 149.0 <=2.9 mg/L 07/29/2018 [facility] HEMATOLOGY Sed Rate 98 0 - 15 07/29/2018 [facility] IMMUNOLOGY C-REACTIVE PROTEIN 171.0 <=2.9 mg/L 07/29/2018 [facility] CHEM PANEL Lactic Acid Lvl 1.2 0.5 - 2.2 07/29/2018 [facility] CHEM PANEL Globulin 2.7 1.9 - 3.7 05/07/[facility] CHEM PANEL Total Protein 6.7 6.1 - 8.1 05/07/2018 [facility] CHEM PANEL Albumin Lvl 4.0 3.6 - 5.1 05/07/2018 [facility] CHEM PANEL ALANINE AMINOTRANSFERASE 13 9 - 46 05/07/2018 [facility] CHEM PANEL Alk Phos 239 40 - 115 05/07/2018 [facility] CHEM PANEL ASPARTATE TRANSAMINASE 15 10 - 35 05/07/2018 [facility] CHEM PANEL A/G Ratio 1.5 1.0 - 2.5 05/07/2018 [facility] CHEM PANEL Bili Total 0.3 0.2 - 1.2 05/07/2018 [facility] CHEM PANEL Potassium Lvl 4.4 3.5 - 5.3 05/07/2018 [facility] CHEM PANEL B/C Ratio 20 6 - 22 05/07/2018 [facility] CHEM PANEL Sodium Lvl 143 135 - 146 05/07/2018 [facility] CHEM PANEL Chloride Lvl 108 98 - 110 05/07/2018 [facility] CHEM PANEL CO2 26 20 - 32 05/07/2018 [facility] CHEM PANEL Calcium Lvl 10.0 8.6 - 10.3 05/07/2018 [facility] CHEM PANEL eGFR 40 > OR=60 mL/min/1.73m2 05/07/2018 [facility] CHEM PANEL eGFR NON-AFR. MALDIVIAN 35 > OR=60 mL/min/1.73m2 05/07/2018 [facility] CHEM PANEL Creatinine Lvl 1.94 0.70 - 1.25 05/07/2018 Result Comment: For patients >49 years of age, the reference limit
for Creatinine is approximately 13% higher for people
identified as -[facility] CHEM PANEL BUN 39 7 - 25 05/07/2018 [facility] CHEM PANEL Glucose Lvl 82 65 - 99 05/07/2018 Result Comment:
Fasting reference interval

Lab test performed by:
[facility]
[address] [place] [address]
[place] [address]
[facility] HEMATOLOGY Segs 75.7 05/07/2018 [facility] HEMATOLOGY Basophils # 87 0 - 200 05/07/2018 [facility] HEMATOLOGY Eosinophils # 268 15 - 500 05/07/2018 [facility] HEMATOLOGY Lymphocytes 13.9 05/07/2018 [facility] HEMATOLOGY Eosinophils 4.0 05/07/2018 [facility] HEMATOLOGY Monocytes 5.1 05/07/2018 [facility] HEMATOLOGY Basophils 1.3 05/07/2018 [facility] HEMATOLOGY Lymphocytes # 931 850 - 3900 05/07/2018 [facility] HEMATOLOGY Monocytes # 342 200 - 950 05/07/2018 [facility] HEMATOLOGY MPV 10.7 7.5 - 12.5 05/07/2018 [facility] HEMATOLOGY Neutrophils # [id number] 1500 - 7800 05/07/2018 [facility] HEMATOLOGY WBC X 10x3 6.7 3.8 - 10.8 05/07/2018 Result Comment:
Lab test performed by:
[facility]
[address] [place] [address]
[place] [address]
Jennifer Rosenthal [facility] HEMATOLOGY RBC X 10x6 4.15 4.20 - 5.80 05/07/2018 [facility] HEMATOLOGY Hgb 12.3 13.2 - 17.1 05/07/2018 [facility] HEMATOLOGY Hct 37.6 38.5 - 50.0 05/07/2018 [facility] HEMATOLOGY MCH 29.6 27.0 - 33.0 05/07/2018 [facility] HEMATOLOGY MCV 90.6 80.0 - 100.0 05/07/2018 [facility] HEMATOLOGY MCHC 32.7 32.0 - 36.0 05/07/2018 [facility] HEMATOLOGY RDW 16.4 11.0 - 15.0 05/07/2018 [facility] HEMATOLOGY Platelet 240 140 - 400 05/07/2018 [facility] LIPIDS HDL 37 >40 mg/dL 05/07/2018 [facility] LIPIDS Chol 197 <200 mg/dL 05/07/2018 Result Comment:
Lab test performed by:
[facility]
[address]
[place] [address]
Jennifer Rosenthal [facility] LIPIDS Trig 166 <150 mg/dL 05/07/2018 [facility] LIPIDS LDL (Calculated) 130 05/07/2018 Result Comment: Reference range: <100

Desirable range <100 mg/dL for primary prevention;
<70 mg/dL for patients with CHD or diabetic patients
with > or=2 CHD risk factors.

LDL-C is now calculated using the Masha
calculation, which is a validated novel method providing
better accuracy than the Friedewald equation in the
estimation of LDL-C.
Olivier LYNCH et al. SAAD. 2013;310(19): 1083-9324
(http://education.Screenmailer/faq/PLW730) [facility] LIPIDS Non HDL Chol 160 <130 mg/dL 05/07/2018 Result Comment: For patients with diabetes plus 1 major ASCVD risk
factor, treating to a non-HDL-C goal of <100 mg/dL
(LDL-C of <70 mg/dL) is considered a therapeutic
option. [facility] LIPIDS CHD Risk 5.3 <5.0 (CALC) 05/07/2018 [facility] SPECIAL CHEMISTRY PSA 0.9 < OR=4.0 ng/mL 05/07/2018 Result Comment: The total PSA value from this assay system is
standardized against the WHO standard. The test
result will be approximately 20% lower when compared
to the equimolar-standardized total PSA ([place]). Comparison of serial PSA results should be
interpreted with this fact in mind.

This test was performed using the Siemens
chemiluminescent method. Values obtained from
different assay methods cannot be used
interchangeably. PSA levels, regardless of
value, should not be interpreted as absolute
evidence of the presence or absence of disease.

Lab test performed by:
[facility]
[address] [place] [address]
[place] [address]
Jennifer Rosenthal [facility] SPECIAL CHEMISTRY Hgb A1C 5.4 <5.7 % 05/07/2018 Result Comment: For the purpose of screening for the presence of
diabetes:

<5.7% Consistent with the absence of diabetes
5.7-6.4% Consistent with increased risk for diabetes
(prediabetes)
> or=6.5% Consistent with diabetes

This assay result is consistent with a decreased risk
of diabetes.

Currently, no consensus exists regarding use of
hemoglobin A1c for diagnosis of diabetes in children.

According to [place] Diabetes Association (ADA)
guidelines, hemoglobin A1c <7.0% represents optimal
control in non- diabetic patients. Different
metrics may apply to specific patient populations.
Standards of Medical Care in Diabetes(ADA).

FASTING:YES

FASTING: YES

Lab test performed by:
[facility]
[address] [place] [address]
[place] [address]
Jennifer Rosenthal [facility] SPECIAL CHEMISTRY Segs 75.7 05/07/2018 [facility] SPECIAL CHEMISTRY Basophils # 87 0 - 200 05/07/2018 [facility] SPECIAL CHEMISTRY Eosinophils # 268 15 - 500 05/07/2018 [facility] SPECIAL CHEMISTRY Lymphocytes 13.9 05/07/2018 [facility] SPECIAL CHEMISTRY Eosinophils 4.0 05/07/2018 [facility] SPECIAL CHEMISTRY Monocytes 5.1 05/07/2018 [facility] SPECIAL CHEMISTRY Basophils 1.3 05/07/2018 [facility] SPECIAL CHEMISTRY Globulin 2.7 1.9 - 3.7 05/07/2018 [facility] SPECIAL CHEMISTRY Total Protein 6.7 6.1 - 8.1 05/07/2018 [facility] SPECIAL CHEMISTRY Albumin Lvl 4.0 3.6 - 5.1 05/07/2018 [facility] SPECIAL CHEMISTRY ALANINE AMINOTRANSFERASE 13 9 - 46 05/07/2018 [facility] SPECIAL CHEMISTRY Alk Phos 239 40 - 115 05/07/2018 [facility] SPECIAL CHEMISTRY ASPARTATE TRANSAMINASE 15 10 - 35 05/07/2018 [facility] SPECIAL CHEMISTRY A/G Ratio 1.5 1.0 - 2.5 05/07/2018 [facility] SPECIAL CHEMISTRY Bili Total 0.3 0.2 - 1.2 05/07/2018 [facility] SPECIAL CHEMISTRY Potassium Lvl 4.4 3.5 - 5.3 05/07/2018 [facility] SPECIAL CHEMISTRY B/C Ratio 20 6 - 22 05/07/2018 [facility] SPECIAL CHEMISTRY Sodium Lvl 143 135 - 146 05/07/2018 [facility] SPECIAL CHEMISTRY Chloride Lvl 108 98 - 110 05/07/2018 [facility] SPECIAL CHEMISTRY CO2 26 20 - 32 05/07/2018 [facility] SPECIAL CHEMISTRY Calcium Lvl 10.0 8.6 - 10.3 05/07/2018 [facility] SPECIAL CHEMISTRY Lymphocytes # 931 850 - 3900 05/07/2018 [facility] SPECIAL CHEMISTRY Monocytes # 342 200 - 950 05/07/2018 [facility] SPECIAL CHEMISTRY MPV 10.7 7.5 - 12.5 05/07/2018 [facility] SPECIAL CHEMISTRY Neutrophils # 9633 1500 - 4710 05/07/2018 [facility] SPECIAL CHEMISTRY WBC X 10x3 6.7 3.8 - 10.8 05/07/2018 Result Comment:
Lab test performed by:
[facility]
[address] [place] [address]
[place] [address]
Jennifer Rosenthal [facility] SPECIAL CHEMISTRY RBC X 10x6 4.15 4.20 - 5.80 05/07/2018 [facility] SPECIAL CHEMISTRY Hgb 12.3 13.2 - 17.1 05/07/2018 [facility] SPECIAL CHEMISTRY Hct 37.6 38.5 - 50.0 05/07/2018 [facility] SPECIAL CHEMISTRY MCH 29.6 27.0 - 33.0 05/07/2018 [facility] SPECIAL CHEMISTRY MCV 90.6 80.0 - 100.0 05/07/2018 [facility] SPECIAL CHEMISTRY MCHC 32.7 32.0 - 36.0 05/07/2018 [facility] SPECIAL CHEMISTRY RDW 16.4 11.0 - 15.0 05/07/2018 [facility] SPECIAL CHEMISTRY Platelet 240 140 - 400 05/07/2018 [facility] SPECIAL CHEMISTRY eGFR 40 > OR=60 mL/min/1.73m2 05/07/2018 [facility] SPECIAL CHEMISTRY eGFR NON-AFR. MALDIVIAN 35 > OR=60 mL/min/1.73m2 05/07/2018 [facility] SPECIAL CHEMISTRY Creatinine Lvl 1.94 0.70 - 1.25 05/07/2018 Result Comment: For patients >49 years of age, the reference limit
for Creatinine is approximately 13% higher for people
identified as -[place]. [facility] SPECIAL CHEMISTRY BUN 39 7 - 25 05/07/2018 [facility] SPECIAL CHEMISTRY Glucose Lvl 82 65 - 99 05/07/2018 Result Comment:
Fasting reference interval

Lab test performed by:
[facility]
[address]
[place] [address]
Jennifer Rosenthal [facility] ELECTROLYTES CO2 33 20 - 31 06/03/2017 [facility] ELECTROLYTES Calcium Lvl 10.4 8.6 - 10.3 06/03/2017 [facility] ELECTROLYTES A/G Ratio 1.1 1.0 - 2.5 06/03/2017 [facility] ELECTROLYTES Bili Total 0.3 0.2 - 1.2 06/03/2017 [facility] ELECTROLYTES Chloride Lvl 103 98 - 110 06/03/2017 [facility] ELECTROLYTES Total Protein 6.9 6.1 - 8.1 06/03/2017 [facility] ELECTROLYTES Globulin 3.3 1.9 - 3.7 06/03/2017 [facility] ELECTROLYTES Albumin Lvl 3.6 3.6 - 5.1 06/03/2017 [facility] ELECTROLYTES Sodium Lvl 139 135 - 146 06/03/2017 [facility] ELECTROLYTES Potassium Lvl 4.3 3.5 - 5.3 06/03/2017 [facility] ELECTROLYTES eGFR 39 > OR=60 mL/min/1.73m2 06/03/2017 [facility] ELECTROLYTES B/C Ratio 16 6 - 22 06/03/2017 [facility] ELECTROLYTES ASPARTATE TRANSAMINASE 16 10 - 35 06/03/2017 [facility] ELECTROLYTES Alk Phos 185 40 - 115 06/03/2017 [facility] ELECTROLYTES ALANINE AMINOTRANSFERASE 16 9 - 46 06/03/2017 [facility] ELECTROLYTES eGFR NON-AFR. MALDIVIAN 34 > OR=60 mL/min/1.73m2 06/03/2017 [facility] ELECTROLYTES BUN 31 7 - 25 06/03/2017 [facility] ELECTROLYTES Creatinine Lvl 1.99 0.70 - 1.25 06/03/2017 Result Comment: For patients >49 years of age, the reference limit
for Creatinine is approximately 13% higher for people
identified as -[place]. [facility] ELECTROLYTES Glucose Lvl 88 65 - 99 06/03/2017 Result Comment:
Fasting reference interval

Lab test performed by:
[facility]
[address] [place] [address]
[place] [address]
Jennifer Rosenthal [facility] HEMATOLOGY Monocytes 9.2 06/03/2017 [facility] HEMATOLOGY Eosinophils 0.0 06/03/2017 [facility] HEMATOLOGY Basophils 1.8 06/03/2017 [facility] HEMATOLOGY Lymphocytes 18.0 06/03/2017 [facility] HEMATOLOGY Segs 71 06/03/2017 [facility] HEMATOLOGY Lymphocytes # 882 850 - 3900 06/03/2017 [facility] HEMATOLOGY Monocytes # 451 200 - 950 06/03/2017 [facility] HEMATOLOGY Eosinophils # 0 15 - 500 06/03/2017 [facility] HEMATOLOGY Basophils # 88 0 - 200 06/03/2017 [facility] HEMATOLOGY MCV 81.7 80.0 - 100.0 06/03/2017 [facility] HEMATOLOGY Segs-Bands # 9852 4323 - 7266 06/03/2017 [facility] HEMATOLOGY Hct 29.0 38.5 - 50.0 06/03/2017 [facility] HEMATOLOGY MPV 9.9 7.5 - 12.5 06/03/2017 [facility] HEMATOLOGY MCH 25.4 27.0 - 33.0 06/03/2017 [facility] HEMATOLOGY MCHC 31.0 32.0 - 36.0 06/03/2017 [facility] HEMATOLOGY RDW 18.1 11.0 - 15.0 06/03/2017 [facility] HEMATOLOGY Hgb 9.0 13.2 - 17.1 06/03/2017 [facility] HEMATOLOGY WBC X 10x3 4.9 3.8 - 10.8 06/03/2017 Result Comment:
Lab test performed by:
[facility]
[address]
[place] [address]
Jennifer Rosenthal MD [facility] HEMATOLOGY RBC X 10x6 3.55 4.20 - 5.80 06/03/2017 [facility] HEMATOLOGY Platelet 316 140 - 400 06/03/2017 [facility] CHEM PANEL eGFR 33 04/10/2017 Result Comment: The eGFR is calculated using the CKD-EPI formula. In most young, healthy individuals the eGFR will be >90 mL/min/1.73m2. The eGFR declines with age. An eGFR of 60-89 may be normal in some populations, particularly the elderly, for whom the CKD-EPI formula has not been extensively validated. Use of the eGFR is not recommended in the following populations:

Individuals with unstable creatinine concentrations, including patients and those with serious co-morbid conditions.

Patients with extremes in muscle mass or diet.

The data above are obtained from the National Kidney Disease Education Program (NKDEP) which additionally recommends that when the eGFR is used in patients with extremes of body mass index for purposes of drug dosing, the eGFR should be multiplied by the estimated BMI. [facility] CHEM PANEL CO2 25 24 - 32 04/10/2017 [facility] CHEM PANEL Chloride Lvl 107 95 - 109 04/10/2017 [facility] CHEM PANEL Sodium Lvl 138 135 - 145 04/10/2017 [facility] CHEM PANEL Potassium Lvl 4.3 3.5 - 5.1 04/10/2017 [facility] CHEM PANEL Creatinine Lvl 2.03 0.50 - 1.40 04/10/2017 [facility] CHEM PANEL Glucose Lvl 98 70 - 99 04/10/2017 [facility] CHEM PANEL BUN 28 7 - 22 04/10/2017 [facility] CHEM PANEL Calcium Lvl 10.1 8.5 - 10.5 04/10/2017 [facility] CHEM PANEL AGAP 10.3 10.0 - 20.0 04/10/2017 [facility] HEMATOLOGY PTT 33.7 22.9 - 35.8 04/10/2017 [facility] HEMATOLOGY ACT (TEG) Rapid 121 86 - 118 04/10/2017 [facility] HEMATOLOGY [place] Rapid 0.6 04/10/2017 [facility] HEMATOLOGY Angle Rapid 80 64 - 80 04/10/2017 [facility] HEMATOLOGY R-time Rapid 0.8 0.4 - 0.7 04/10/2017 [facility] HEMATOLOGY K-time Rapid 0.8 0.6 - 2.3 04/10/2017 [facility] HEMATOLOGY G-value Rapid 14.5 5.0 - 11.6 04/10/2017 [facility] HEMATOLOGY Max Amplitude Rapid 74 52 - 71 04/10/2017 [facility] HEMATOLOGY Estimated % Lysis Rapid 0.0 0.0 - 7.5 04/10/2017 [facility] HEMATOLOGY INR 1.17 0.85 - 1.17 04/10/2017 [facility] HEMATOLOGY PT 15.0 12.0 - 14.7 04/10/2017 [facility] HEMATOLOGY MPV 7.4 7.4 - 10.4 04/10/2017 [facility] HEMATOLOGY RDW 18.3 11.5 - 14.5 04/10/2017 [facility] HEMATOLOGY Platelet 234 133 - 450 04/10/2017 [facility] HEMATOLOGY MCV 81.3 80.0 - 94.0 04/10/2017 [facility] HEMATOLOGY Hct 27.7 42.0 - 54.0 04/10/2017 [facility] HEMATOLOGY RBC 3.41 4.70 - 6.10 04/10/2017 [facility] HEMATOLOGY Hgb 8.8 14.0 - 18.0 04/10/2017 [facility] HEMATOLOGY WBC 5.2 3.7 - 10.4 04/10/2017 [facility] HEMATOLOGY MCH 25.7 27.0 - 31.0 04/10/2017 [facility] HEMATOLOGY MCHC 31.6 32.0 - 36.0 04/10/2017 [facility] HEMATOLOGY Eosinophils 6.1 0.0 - 4.0 04/10/2017 [facility] HEMATOLOGY Basophils 1.8 0.0 - 1.0 04/10/2017 [facility] HEMATOLOGY Lymphocytes 14.5 20.0 - 40.0 04/10/2017 [facility] HEMATOLOGY Monocytes 7.3 2.0 - 12.0 04/10/2017 [facility] HEMATOLOGY Eosinophils # 0.3 0.0 - 0.5 04/10/2017 [facility] HEMATOLOGY Basophils # 0.1 0.0 - 0.2 04/10/2017 [facility] HEMATOLOGY Lymphocytes # 0.7 1.0 - 5.5 04/10/2017 [facility] HEMATOLOGY Monocytes # 0.4 0.0 - 0.8 04/10/2017 [facility] HEMATOLOGY Segs 70.3 45.0 - 75.0 04/10/2017 [facility] HEMATOLOGY Segs-Bands # 3.6 1.5 - 8.1 04/10/2017 [facility] HEMATOLOGY PTT 69.0 22.9 - 35.8 01/31/2017 [facility] HEMATOLOGY INR 1.16 0.85 - 1.17 01/31/2017 [facility] HEMATOLOGY PT 15.0 12.0 - 14.7 01/31/2017 [facility] HEMATOLOGY INR 1.13 0.85 - 1.17 01/31/2017 [facility] HEMATOLOGY PT 14.7 12.0 - 14.7 01/31/2017 [facility] HEMATOLOGY PTT 57.7 22.9 - 35.8 01/31/2017 [facility] CHEM PANEL Phosphorus 2.9 2.5 - 4.5 01/31/2017 [facility] CHEM PANEL eGFR 49 01/31/2017 Result Comment: The eGFR is calculated using the CKD-EPI formula. In most young, healthy individuals the eGFR will be >90 mL/min/1.73m2. The eGFR declines with age. An eGFR of 60-89 may be normal in some populations, particularly the elderly, for whom the CKD-EPI formula has not been extensively validated. Use of the eGFR is not recommended in the following populations:

Individuals with unstable creatinine concentrations, including patients and those with serious co-morbid conditions.

Patients with extremes in muscle mass or diet.

The data above are obtained from the National Kidney Disease Education Program (NKDEP) which additionally recommends that when the eGFR is used in patients with extremes of body mass index for purposes of drug dosing, the eGFR should be multiplied by the estimated BMI. [facility] CHEM PANEL CO2 25 24 - 32 01/31/2017 [facility] CHEM PANEL Calcium Lvl 10.4 8.5 - 10.5 01/31/2017 [facility] CHEM PANEL Potassium Lvl 4.4 3.5 - 5.1 01/31/2017 [facility] CHEM PANEL Chloride Lvl 105 95 - 109 01/31/2017 [facility] CHEM PANEL Creatinine Lvl 1.47 0.50 - 1.40 01/31/2017 [facility] CHEM PANEL Sodium Lvl 140 135 - 145 01/31/2017 [facility] CHEM PANEL BUN 23 7 - 22 01/31/2017 [facility] CHEM PANEL Glucose Lvl 114 70 - 99 01/31/2017 [facility] CHEM PANEL AGAP 14.4 10.0 - 20.0 01/31/2017 [facility] CHEM PANEL Magnesium Lvl 1.8 1.8 - 2.4 01/31/2017 [facility] HEMATOLOGY PTT 73.7 22.9 - 35.8 01/31/2017 [facility] HEMATOLOGY Monocytes # 0.5 0.0 - 0.8 01/31/2017 [facility] HEMATOLOGY Lymphocytes # 0.9 1.0 - 5.5 01/31/2017 [facility] HEMATOLOGY Segs-Bands # 8.2 1.5 - 8.1 01/31/2017 [facility] HEMATOLOGY Eosinophils 1.6 0.0 - 4.0 01/31/2017 [facility] HEMATOLOGY Basophils 1.3 0.0 - 1.0 01/31/2017 [facility] HEMATOLOGY Monocytes 4.9 2.0 - 12.0 01/31/2017 [facility] HEMATOLOGY Lymphocytes 9.6 20.0 - 40.0 01/31/2017 [facility] HEMATOLOGY Segs 82.6 45.0 - 75.0 01/31/2017 [facility] HEMATOLOGY Eosinophils # 0.2 0.0 - 0.5 01/31/2017 [facility] HEMATOLOGY Basophils # 0.1 0.0 - 0.2 01/31/2017 [facility] HEMATOLOGY RDW 19.0 11.5 - 14.5 01/31/2017 [facility] HEMATOLOGY MCHC 32.3 32.0 - 36.0 01/31/2017 [facility] HEMATOLOGY MPV 8.3 7.4 - 10.4 01/31/2017 [facility] HEMATOLOGY Platelet 282 133 - 450 01/31/2017 [facility] HEMATOLOGY MCH 28.3 27.0 - 31.0 01/31/2017 [facility] HEMATOLOGY Hgb 11.4 14.0 - 18.0 01/31/2017 [facility] HEMATOLOGY MCV 87.7 80.0 - 94.0 01/31/2017 [facility] HEMATOLOGY Hct 35.3 42.0 - 54.0 01/31/2017 [facility] HEMATOLOGY RBC 4.02 4.70 - 6.10 01/31/2017 [facility] HEMATOLOGY WBC 9.9 3.7 - 10.4 01/31/2017 [facility] HEMATOLOGY PT 14.7 12.0 - 14.7 01/30/2017 [facility] HEMATOLOGY INR 1.13 0.85 - 1.17 01/30/2017 [facility] CHEM PANEL Phosphorus 2.8 2.5 - 4.5 01/30/2017 [facility] CHEM PANEL Magnesium Lvl 1.8 1.8 - 2.4 01/30/2017 [facility] ELECTROLYTES AGAP 12.2 10.0 - 20.0 01/30/2017 [facility] ELECTROLYTES eGFR 43 01/30/2017 Result Comment: The eGFR is calculated using the CKD-EPI formula. In most young, healthy individuals the eGFR will be >90 mL/min/1.73m2. The eGFR declines with age. An eGFR of 60-89 may be normal in some populations, particularly the elderly, for whom the CKD-EPI formula has not been extensively validated. Use of the eGFR is not recommended in the following populations:

Individuals with unstable creatinine concentrations, including patients and those with serious co-morbid conditions.

Patients with extremes in muscle mass or diet.

The data above are obtained from the National Kidney Disease Education Program (NKDEP) which additionally recommends that when the eGFR is used in patients with extremes of body mass index for purposes of drug dosing, the eGFR should be multiplied by the estimated BMI. [facility] ELECTROLYTES Chloride Lvl 105 95 - 109 01/30/2017 [facility] ELECTROLYTES CO2 26 24 - 32 01/30/2017 [facility] ELECTROLYTES Calcium Lvl 10.0 8.5 - 10.5 01/30/2017 [facility] ELECTROLYTES BUN 30 7 - 22 01/30/2017 [facility] ELECTROLYTES Creatinine Lvl 1.64 0.50 - 1.40 01/30/2017 [facility] ELECTROLYTES Sodium Lvl 139 135 - 145 01/30/2017 [facility] ELECTROLYTES Potassium Lvl 4.2 3.5 - 5.1 01/30/2017 [facility] ELECTROLYTES Glucose Lvl 106 70 - 99 01/30/2017 [facility] HEMATOLOGY Segs 83.7 45.0 - 75.0 01/30/2017 [facility] HEMATOLOGY Segs-Bands # 8.9 1.5 - 8.1 01/30/2017 [facility] HEMATOLOGY Basophils 1.0 0.0 - 1.0 01/30/2017 [facility] HEMATOLOGY Lymphocytes # 1.0 1.0 - 5.5 01/30/2017 [facility] HEMATOLOGY Monocytes 4.5 2.0 - 12.0 01/30/2017 [facility] HEMATOLOGY Lymphocytes 9.3 20.0 - 40.0 01/30/2017 [facility] HEMATOLOGY Eosinophils 1.5 0.0 - 4.0 01/30/2017 [facility] HEMATOLOGY Basophils # 0.1 0.0 - 0.2 01/30/2017 [facility] HEMATOLOGY Eosinophils # 0.2 0.0 - 0.5 01/30/2017 [facility] HEMATOLOGY Monocytes # 0.5 0.0 - 0.8 01/30/2017 [facility] HEMATOLOGY RDW 19.2 11.5 - 14.5 01/30/2017 [facility] HEMATOLOGY MCHC 33.1 32.0 - 36.0 01/30/2017 [facility] HEMATOLOGY MCH 28.9 27.0 - 31.0 01/30/2017 [facility] HEMATOLOGY MCV 87.3 80.0 - 94.0 01/30/2017 [facility] HEMATOLOGY MPV 8.2 7.4 - 10.4 01/30/2017 [facility] HEMATOLOGY Platelet 258 133 - 450 01/30/2017 [facility] HEMATOLOGY Hgb 12.0 14.0 - 18.0 01/30/2017 [facility] HEMATOLOGY WBC 10.6 3.7 - 10.4 01/30/2017 [facility] HEMATOLOGY Hct 36.1 42.0 - 54.0 01/30/2017 [facility] HEMATOLOGY RBC 4.14 4.70 - 6.10 01/30/2017 [facility] [facility] TOXICOLOGY Vanco Tr TND 0900 01/29/2017 [facility] TOXICOLOGY Vanco Tr 19.9 01/29/2017 [facility] CHEM PANEL Magnesium Lvl 1.8 1.8 - 2.4 01/29/2017 [facility] CHEM PANEL BUN 32 7 - 22 01/29/2017 [facility] CHEM PANEL Glucose Lvl 118 70 - 99 01/29/2017 [facility] CHEM PANEL Creatinine Lvl 1.46 0.50 - 1.40 01/29/2017 [facility] CHEM PANEL Potassium Lvl 4.1 3.5 - 5.1 01/29/2017 [facility] CHEM PANEL Calcium Lvl 10.6 8.5 - 10.5 01/29/2017 [facility] CHEM PANEL CO2 26 24 - 32 01/29/2017 [facility] CHEM PANEL Sodium Lvl 137 135 - 145 01/29/2017 [facility] CHEM PANEL Chloride Lvl 104 95 - 109 01/29/2017 [facility] CHEM PANEL eGFR 49 01/29/2017 Result Comment: The eGFR is calculated using the CKD-EPI formula. In most young, healthy individuals the eGFR will be >90 mL/min/1.73m2. The eGFR declines with age. An eGFR of 60-89 may be normal in some populations, particularly the elderly, for whom the CKD-EPI formula has not been extensively validated. Use of the eGFR is not recommended in the following populations:

Individuals with unstable creatinine concentrations, including patients and those with serious co-morbid conditions.

Patients with extremes in muscle mass or diet.

The data above are obtained from the National Kidney Disease Education Program (NKDEP) which additionally recommends that when the eGFR is used in patients with extremes of body mass index for purposes of drug dosing, the eGFR should be multiplied by the estimated BMI. [facility] CHEM PANEL AGAP 11.1 10.0 - 20.0 01/29/2017 [facility] CHEM PANEL Phosphorus 3.0 2.5 - 4.5 01/29/2017 [facility] HEMATOLOGY MPV 8.3 7.4 - 10.4 01/29/2017 [facility] HEMATOLOGY Platelet 277 133 - 450 01/29/2017 [facility] HEMATOLOGY RDW 19.5 11.5 - 14.5 01/29/2017 [facility] HEMATOLOGY MCHC 31.9 32.0 - 36.0 01/29/2017 [facility] HEMATOLOGY MCH 28.0 27.0 - 31.0 01/29/2017 [facility] HEMATOLOGY MCV 87.7 80.0 - 94.0 01/29/2017 [facility] HEMATOLOGY Hgb 11.3 14.0 - 18.0 01/29/2017 [facility] HEMATOLOGY Hct 35.3 42.0 - 54.0 01/29/2017 [facility] HEMATOLOGY RBC 4.02 4.70 - 6.10 01/29/2017 [facility] HEMATOLOGY WBC 9.9 3.7 - 10.4 01/29/2017 [facility] HEMATOLOGY Basophils # 0.1 0.0 - 0.2 01/29/2017 [facility] HEMATOLOGY Lymphocytes # 1.1 1.0 - 5.5 01/29/2017 [facility] HEMATOLOGY Segs-Bands # 8.1 1.5 - 8.1 01/29/2017 [facility] HEMATOLOGY Monocytes # 0.5 0.0 - 0.8 01/29/2017 [facility] HEMATOLOGY Eosinophils # 0.1 0.0 - 0.5 01/29/2017 [facility] HEMATOLOGY Basophils 0.8 0.0 - 1.0 01/29/2017 [facility] HEMATOLOGY Lymphocytes 10.8 20.0 - 40.0 01/29/2017 [facility] HEMATOLOGY Monocytes 4.7 2.0 - 12.0 01/29/2017 [facility] HEMATOLOGY Eosinophils 1.5 0.0 - 4.0 01/29/2017 [facility] HEMATOLOGY Segs 82.2 45.0 - 75.0 01/29/2017 [facility] TOXICOLOGY Vanco Tr TND 1930 01/28/2017 [facility] TOXICOLOGY Vanco Tr 19.4 01/28/2017 [facility] CARDIAC ENZYMES Troponin-T <0.010 0.000 - 0.100 01/26/2017 [facility] CARDIAC ENZYMES Total CK 37 12 - 191 01/26/2017 [facility] CHEM PANEL Lactic Acid Lvl 1.2 0.5 - 2.2 01/26/2017 [facility] PARATHYROID PROFILE Ca Norm WB 1.48 1.05 - 1.25 01/26/2017 [facility] PARATHYROID PROFILE Ca Ion WB 1.47 1.05 - 1.25 01/26/2017 [facility] TOXICOLOGY Vanco Tr TND 1930 01/26/2017 [facility] TOXICOLOGY Vanco Tr 21.2 01/26/2017 [facility] CHEM PANEL Lactic Acid Lvl 1.2 0.5 - 2.2 01/25/2017 [facility] CARDIAC ENZYMES Total CK 40 12 - 191 01/24/2017 [facility] CHEM PANEL Lactic Acid Lvl 0.8 0.5 - 2.2 01/24/2017 [facility] HEMATOLOGY Anisocyte 1+ *ABN* (01/24/17 12:52 AM) None Seen 01/24/2017 [facility] HEMATOLOGY Plt Morph Normal (01/24/17 12:52 AM) 01/24/2017 [facility] HEMATOLOGY RBC Morph Normal (01/23/17 11:39 AM) 01/23/2017 [facility] HEMATOLOGY Plt Morph Normal (01/23/17 11:39 AM) 01/23/2017 [facility] URINE AND STOOL UA Urobilinogen <=1.0 mg/dL 0.1 - 1.0 01/22/2017 [facility] URINE AND STOOL UA Nitrite Negative (01/22/17 1:02 PM) Negative 01/22/2017 [facility] URINE AND STOOL UA Mucus Few /LPF None Seen /LPF 01/22/2017 [facility] URINE AND STOOL UA Blood Trace *ABN* (01/22/17 1:02 PM) Negative 01/22/2017 [facility] URINE AND STOOL UA Bili Negative *NA* (01/22/17 1:02 PM) Negative 01/22/2017 [facility] URINE AND STOOL UA Leuk Est Negative (01/22/17 1:02 PM) Negative 01/22/2017 [facility] URINE AND STOOL UA WBC <1 0 - 5 01/22/2017 [facility] URINE AND STOOL UA RBC <1 0 - 2 01/22/2017 [facility] URINE AND STOOL UA Glucose 300 mg/dL Negative mg/dL 01/22/2017 [facility] URINE AND STOOL UA Ketones Negative mg/dL Negative mg/dL 01/22/2017 [facility] URINE AND STOOL UA pH 5.5 5.0 - 8.0 01/22/2017 [facility] URINE AND STOOL UA Protein 50 mg/dL Negative mg/dL 01/22/2017 [facility] URINE AND STOOL UA Spec Grav 1.011 <=1.030 01/22/2017 [facility] URINE AND STOOL UA Turbidity Clear (01/22/17 1:02 PM) Clear 01/22/2017 [facility] URINE AND STOOL UA Color Yellow *NA* (01/22/17 1:02 PM) Yellow 01/22/2017 [facility] URINE AND STOOL UA Sq Epi None Seen 01/22/2017 [facility] TOXICOLOGY Vanco Lvl 20.5 01/22/2017 [facility] CHEM PANEL A/G Ratio 0.7 0.7 - 1.6 01/21/2017 [facility] CHEM PANEL Globulin 3.4 2.7 - 4.2 01/21/2017 [facility] CHEM PANEL B/C Ratio 30 6 - 25 01/21/2017 [facility] CHEM PANEL ALT 29 0 - 65 01/21/2017 [facility] CHEM PANEL AST 24 0 - 37 01/21/2017 [facility] CHEM PANEL Bili Total 0.4 0.2 - 1.3 01/21/2017 [facility] CHEM PANEL Total Protein 5.9 6.4 - 8.4 01/21/2017 [facility] CHEM PANEL Albumin Lvl 2.5 3.5 - 5.0 01/21/2017 [facility] CHEM PANEL Alk Phos 89 39 - 136 01/21/2017 [facility] HEMATOLOGY Plt Morph Normal (01/21/17 8:51 AM) 01/21/2017 [facility] HEMATOLOGY RBC Morph Normal (01/21/17 8:51 AM) 01/21/2017 [facility] TOXICOLOGY Vanco Lvl 4.9 01/21/2017 [facility] SPECIAL CHEMISTRY Hgb A1C 7.1 <=5.6 % 01/20/2017 [facility] URINE AND STOOL UA pH 5.5 5.0 - 8.0 01/19/2017 [facility] URINE AND STOOL UA Protein 30 mg/dL Negative mg/dL 01/19/2017 [facility] URINE AND STOOL UA Turbidity Clear (01/19/17 1:21 PM) Clear 01/19/2017 [facility] URINE AND STOOL UA Spec Grav 1.015 <=1.030 01/19/2017 [facility] URINE AND STOOL UA Color Yellow *NA* (01/19/17 1:21 PM) Yellow 01/19/2017 [facility] URINE AND STOOL UA Leuk Est Negative (01/19/17 1:21 PM) Negative 01/19/2017 [facility] URINE AND STOOL UA Nitrite Negative (01/19/17 1:21 PM) Negative 01/19/2017 [facility] URINE AND STOOL UA Ketones Negative *NA* (01/19/17 1:21 PM) Negative 01/19/2017 [facility] URINE AND STOOL UA Bili Negative *NA* (01/19/17 1:21 PM) Negative 01/19/2017 [facility] URINE AND STOOL UA Glucose Negative (01/19/17 1:21 PM) Negative 01/19/2017 [facility] URINE AND STOOL UA Blood Small *ABN* (01/19/17 1:21 PM) Negative 01/19/2017 [facility] URINE AND STOOL UA Urobilinogen 0.2 0.1 - 1.0 01/19/2017 [facility] URINE AND STOOL UA WBC 0-2 /HPF None Seen /HPF 01/19/2017 [facility] URINE AND STOOL UA Sq Epi Occasional /LPF Few /LPF 01/19/2017 [facility] URINE AND STOOL UA RBC 0-2 /HPF 0 - 2 01/19/2017 [facility] URINE AND STOOL UA Bacteria Occasional /HPF None Seen /HPF 01/19/2017 [facility] BLOOD BANK RESULTS ABO/Rh O NEG 01/19/2017 [facility] BLOOD BANK RESULTS Antibody Scrn Negative (01/19/17 1:15 PM) 01/19/2017 [facility] HEMATOLOGY Sed Rate 50 0 - 15 01/19/2017 [facility] IMMUNOLOGY C-REACTIVE PROTEIN 296.0 <=2.9 mg/L 01/19/2017 [facility] CARDIAC ENZYMES CK MB 1.9 0.5 - 3.6 01/19/2017 [facility] CARDIAC ENZYMES Troponin-I 0.04 0.00 - 0.40 01/19/2017 [facility] CARDIAC ENZYMES Total CK 434 12 - 191 01/19/2017 [facility] CARDIAC ENZYMES CK MB Index 0.4 0.0 - 2.5 01/19/2017 [facility] CHEM PANEL A/G Ratio 0.8 0.7 - 1.6 01/19/2017 [facility] CHEM PANEL Globulin 4.6 2.7 - 4.2 01/19/2017 [facility] CHEM PANEL B/C Ratio 23 6 - 25 01/19/2017 [facility] CHEM PANEL ALT 29 0 - 65 01/19/2017 [facility] CHEM PANEL Albumin Lvl 3.5 3.5 - 5.0 01/19/2017 [facility] CHEM PANEL Total Protein 8.1 6.4 - 8.4 01/19/2017 [facility] CHEM PANEL Alk Phos 108 39 - 136 01/19/2017 [facility] CHEM PANEL Bili Total 1.0 0.2 - 1.3 01/19/2017 [facility] CHEM PANEL AST 35 0 - 37 01/19/2017 [facility] CHEM PANEL Procalcitonin Lvl 6.45 0.00 - 0.10 01/19/2017 Result Comment: CRITICAL RESULT CALLED TO WEN Mohamud) AT 01/19/2017 16:38 BY SXP. READ BACK OK. [facility] CARDIAC ENZYMES Total CK 223 44 - 196 10/08/2016 Result Comment:
Lab test performed by:
[facility]
[address] [place] [address]
[place] [address]
Jennifer Rosenthal MD [facility] CHEM PANEL ASPARTATE TRANSAMINASE 29 10 - 35 10/08/2016 [facility] CHEM PANEL Albumin Lvl 4.0 3.6 - 5.1 10/08/2016 [facility] CHEM PANEL Bili Total 0.5 0.2 - 1.2 10/08/2016 [facility] CHEM PANEL Globulin 2.9 1.9 - 3.7 10/08/2016 [facility] CHEM PANEL Alk Phos 117 40 - 115 10/08/2016 [facility] CHEM PANEL A/G Ratio 1.4 1.0 - 2.5 10/08/2016 [facility] CHEM PANEL ALANINE AMINOTRANSFERASE 30 9 - 46 10/08/[facility] CHEM PANEL Sodium Lvl 136 135 - 146 10/08/2016 [facility] CHEM PANEL B/C Ratio 23 6 - 22 10/08/2016 [facility] CHEM PANEL Potassium Lvl 3.2 3.5 - 5.3 10/08/2016 [facility] CHEM PANEL Calcium Lvl 10.7 8.6 - 10.3 10/08/2016 [facility] CHEM PANEL CO2 34 20 - 31 10/08/2016 [facility] CHEM PANEL Chloride Lvl 92 98 - 110 10/08/2016 [facility] CHEM PANEL Total Protein 6.9 6.1 - 8.1 10/08/2016 [facility] CHEM PANEL Glucose Lvl 96 65 - 99 10/08/2016 Result Comment:
Fasting reference interval

Lab test performed by:
[facility]
[address] [place] [address]
[place] [address]
Jennifer Rosenthal MD [facility] CHEM PANEL BUN 61 7 - 25 10/08/2016 [facility] CHEM PANEL eGFR 28 > OR=60 mL/min/1.73m2 10/08/2016 [facility] CHEM PANEL eGFR NON-AFR. MALDIVIAN 24 > OR=60 mL/min/1.73m2 10/08/2016 [facility] CHEM PANEL Creatinine Lvl 2.63 0.70 - 1.25 10/08/2016 Result Comment: For patients >49 years of age, the reference limit
for Creatinine is approximately 13% higher for people
identified as -[place]. [facility] HEMATOLOGY Basophils 0.9 10/08/2016 [facility] HEMATOLOGY Monocytes 5.8 10/08/2016 [facility] HEMATOLOGY Eosinophils 4.9 10/08/2016 [facility] HEMATOLOGY Segs 71.0 10/08/2016 [facility] HEMATOLOGY Basophils # 71 0 - 200 10/08/2016 [facility] HEMATOLOGY Eosinophils # 387 15 - 500 10/08/2016 [facility] HEMATOLOGY Lymphocytes 17.4 10/08/2016 [facility] HEMATOLOGY Lymphocytes # 1375 730 - 3320 10/08/2016 [facility] HEMATOLOGY Monocytes # 458 200 - 950 10/08/2016 [facility] HEMATOLOGY MPV 8.1 7.5 - 12.5 10/08/2016 [facility] HEMATOLOGY Segs-Bands # 2776 2953 - 3072 10/08/2016 [facility] HEMATOLOGY RDW 17.7 11.0 - 15.0 10/08/2016 [facility] HEMATOLOGY Platelet 214 140 - 400 10/08/2016 [facility] HEMATOLOGY MCH 29.0 27.0 - 33.0 10/08/2016 [facility] HEMATOLOGY MCHC 32.5 32.0 - 36.0 10/08/2016 [facility] HEMATOLOGY Hct 42.8 38.5 - 50.0 10/08/2016 [facility] HEMATOLOGY Hgb 13.9 13.2 - 17.1 10/08/2016 [facility] HEMATOLOGY MCV 89.1 80.0 - 100.0 10/08/2016 [facility] HEMATOLOGY WBC X 10x3 7.9 3.8 - 10.8 10/08/2016 Result Comment:
Lab test performed by:
[facility]
[address] [place] [address]
[place] [address]
Jennifer Rosenthal MD [facility] HEMATOLOGY RBC X 10x6 4.81 4.20 - 5.80 10/08/2016 [facility] Pathology Reports No Data Provided for This Section Diagnostic Reports Report Value Date Source Brain Stroke wo contrast CT EXAM: CT BRAIN WITHOUT CONTRAST INDICATION: - Neurochange. More drowsy COMPARISON: 01/28/2019 TECHNIQUE: Routine axial CT images of the brain were obtained. DISCUSSION: There may be increased involvement of the right insula. No hemorrhagic changes within the right MCA territory infarction. No subfalcine or downward transtentorial herniation. No hydrocephalus. IMPRESSION: No hemorrhagic changes within the right MCA territory infarction. There may be slightly increased involvement of the right insula. 02/02/2019 [facility] Brain wo contrast CT EXAM: CT BRAIN WITHOUT CONTRAST DATE: 01/28/2019 6:46 AM INDICATION: Altered mental status, stroke COMPARISON: MRI brain from 01/27/2019 TECHNIQUE: Noncontrast axial imaging of the brain was acquired from the vertex to the skull base. Coronal and sagittal reformatted images were generated. DLP: 1263mGy-cm FINDINGS: Evolving ischemic changes in the right MCA territory without hemorrhagic transformation. Mild increased conspicuity of the associated edema. Additional chronic ischemic changes without definitive new parenchymal abnormality. No hydrocephalus or herniation. Remainder of the exam is unchanged. IMPRESSION: Evolving ischemic change in the right MCA territory with mild expected increased conspicuity of associated edema, however no significant infarct extension or hemorrhagic transformation. 01/28/2019 [facility] Abdomen AP DX EXAM: XR ABDOMEN 1 VIEW DATE: 01/26/2019 13:56 CDT INDICATION: dysphagia - DHT tube placement ADDITIONAL INFORMATION: None. COMPARISON: None. TECHNIQUE: Limited AP view of the abdomen for tube placement assessment. Number of images: 2 FINDINGS: Feeding tube (tip): Dobbhoff tube with guidewire in place, interval adjustment with tip overlying proximal stomach. Enteric suction tube (sidehole): None present. Other tubes, lines and hardware: Surgical clips visualized in right lower quadrant. Other: No other changes. IMPRESSION: 1. Recommend advancement of Dobbhoff tube to optimal postpyloric positioning. 01/26/2019 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 IV contrast: None. FINDINGS: Cortical restricted diffusion in the posterior right insula, parietal and temporal lobes without hemorrhagic transformation. Scattered chronic microangiopathic changes, as well as focal left temporal and small foci of right cerebellar encephalomalacia. Tiny focus of right frontal juxtacortical hemosiderin. The ventricles are mildly prominent due to volume loss, not necessarily greater than expected for the patient's age. No midline shift or herniation. Mild paranasal sinus mucosal thickening. The larger intracranial vascular flow voids are preserved. IMPRESSION: Recent ischemic changes in the posterior right MCA territory without hemorrhagic transformation. Scattered chronic ischemic changes. 01/26/2019 [facility] Ext Lower Venous Doppler Bilat US EXAM: US BILATERAL LOWER EXTREMITY VENOUS DOPPLER DATE: 01/26/2019 11:36 CDT INDICATION: DVT ADDITIONAL INFORMATION: History of deep vein thrombosis with IVC filter; status post IVC filter removal on 01/26/2019 COMPARISON: None. TECHNIQUE: Multiplanar grayscale, color Doppler and spectral Doppler ultrasound of the bilateral lower extremity veins. FINDINGS: Right Thigh Veins: Common Femoral: Unable to fully evaluate due to overlying bandage. Nonocclusive thrombus in the CFV. Femoral (SFV): Nonocclusive thrombus in the SFV-DFV junction and distal SFV. Popliteal: Nonocclusive thrombus the proximal and distal popliteal vein. Proximal Greater Saphenous: Unable to evaluate due to overlying bandage. Proximal Deep Femoral Veins: Patent. Left Thigh Veins: Common Femoral: Patent. Femoral (SFV): Patent. Popliteal: Nonocclusive thrombus in the distal popliteal vein. Proximal Greater Saphenous: Patent. Proximal Deep Femoral Veins: Patent. Other: Incidental lymph node in the right groin measuring 4.4 x 1.3 x 3.8 cm. IMPRESSION: 1. Right lower extremity: Nonocclusive thrombus extending from the common femoral vein to distal popliteal vein. 2. Left lower extremity: Nonocclusive thrombus in the distal popliteal vein. 01/26/2019 [facility] Angiogram cervical artery bilateral VR PROCEDURE: 1. Diagnostic Cerebral Angiogram 2. Mechanical thrombectomy right middle cerebral artery DATE: 01/26/2019 10:32 CDT INDICATION: Right MCA syndrome HISTORY: 68-year-old male with past medical history significant for renal cell carcinoma status post nephrectomy, hypertension, type 2 diabetes, atrial fibrillation and history of deep vein thrombosis who presents with a right MCA syndrome which was noted status post IVC filter removal. REFERRING PROVIDER: Gabo Morrsi MD ATTENDING: Nikhil Archer MD was present and immediately available for the entire procedure, performing all critical portions and reviewing all angiographic results. FELLOW: Ty Perez MD COMPARISON: CT head 01/26/2019 FLUOROSCOPY TIME: 14.2 minutes CONTRAST: 60 cc MEDICATIONS: See medical records. RADIATION DOSE: Cumulative Air KERMA Frontal: 786.0 mGy Cumulative Air KERMA Lateral: 310.26 mGy PROCEDURE: Once informed consent was obtained describing all the risks, benefits and alternatives of the procedure the patient was brought to the interventional suite and placed in the supine position where moderate sedation was administered under the supervision of the attending physician. The patient was then prepped and draped in the usual sterile fashion. The right femoral artery was accessed using a single wall micropuncture technique and a 9-sheath was placed. A 9- [place] Islander Jennifer balloon guide catheter over 5-[place] Islander Vert catheter was coaxially advanced over an introducer over a 0.038 Terumo Glidewire through the sheath into the aorta arch to select the right common carotid artery. 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 1st pass: The 9-[place] Islander Jennifer balloon guide was then advanced into the right internal carotid artery . A Penumbra Jet 7 aspiration catheter catheter was coaxially introduced selecting the internal carotid artery. Angiographic run was performed and demonstrated a distal right M1 MCA occlusion beyond the takeoff of a large anterior temporal artery. Direct runoff to the right anterior cerebral artery d emonstrates wide patency of these vessels and its distal branches. The distal right MCA territory is reconstituted across leptomeningeal collateral channels from the LALITO territory. They reach to the proximal M4 level. The large anterior temporal artery is seen to opacify the majority of the temporal lobe simulating an inferior division. Attempts to advance the Penumbra Jet 7 aspiration catheter catheter beyond the cavernous segment were unsuccessful. Therefore, a Marksman Microcatheter was advanced over a guiding wire selectively catheterizing the right middle cerebral artery across the occlusion. Microangiograms via this catheter demonstrated its tip to be beyond the occlusion and a distal M2 posterior sylvian branch. The microwire was then removed and a Solitaire 6 mm x 25 mm stentriever was deployed across the distal M1 and proximal M2 levels. The Marksman Catheter was removed. As mild traction was applied to the stentriever the tip of the chest 7 catheter easily advanced to the level of the occlusion. Aspiration was applied and the stentriever was withdrawn into the catheter immediately thereafter. The the stentriever was removed from the Penumbra Jet 7 aspiration catheter and a small amount of thrombotic material was enmeshed in the device. Aspiration was reapplied to the catheter as it was removed. A repeat run revealed an TICI 3 recannulization. After review of the angiography data, the catheter was withdrawn. Right femoral artery angiogram was performed and the catheter was removed. The right common femoral artery angiogram revealed no evidence of stenosis or dissection. The femoral artery sheath was removed and closed by the application of an Angio-Seal closure device. Post procedure neurological examination was at the patient's baseline. The patient was was then transferred to their unit for post procedure care. IMPRESSION: 1. Distal right M1 MCA occlusion beyond a large anterior temporal artery takeoff. 2. First-pass TICI 3 recannulization using the stentriever anchoring technique to advance the aspiration catheter to the face of thrombus followed by immediate aspiration and withdrawal of the stentriever. CRF Occlusion Site: M1 MCA Laterality: Right Cervical ICA Stenosis: No ICAD: No First Pass: Balloon guide: No Local aspiration: Yes Device: Solitaire 6 mm x 25 mm TICI: 3 Final Number of Passes: 1 Final TICI Score: 3 01/26/2019 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 TECHNIQUE: Axial CT images of the brain were obtained. Sagittal and coronal reformats. IV contrast: None. DLP: 1295 mGy-cm FINDINGS: Hyperdensity seen at the M1/M2 junction represents thrombus with surrounding subtle hypodensity consistent with early ischemia. No definite evidence of mass effect or midline shift is seen. Moderate cerebral volume loss with associated ventricular dilatation ex vacuo. Encephalomalacia in the left temporal lobe. Basal cisterns are well preserved. There is no evidence of downward herniation. Calvarium is intact. Thickening of the maxillary sinuses, paranasal sinuses are otherwise clear. Mastoid air cells are well aerated. Visualized orbits appear grossly unremarkable. IMPRESSION: 1. Hyperdensity is seen at the M1/M2 junction, likely due to thrombus. Surrounding subtle hypodensity is seen, consistent with early ischemia. Findings discussed with Dr. Winnie Birmingham at 1546 hours. 01/26/2019 [facility] Chest 1view DX EXAM: XR CHEST 1 VIEW DATE: 01/26/2019 5:00 CDT INDICATION: CVA - CVA. TECHNIQUE: Chest 1 view FINDINGS: Comparison is made to 10/30/2018. Cardiomediastinal silhouette is prominent but unchanged. The lungs are low in volume, with elevation of the right hemidiaphragm. There is mild bilateral lower lobe platelike atelectasis. No pleural effusions. IMPRESSION: Mild bilateral lower lobe platelike atelectasis. 01/26/2019 [facility] Tibia fibula series DX EXAM: XR RIGHT FOOT 3 VIEWS EXAM: XR RIGHT TIBIA 2 VIEWS DATE: 10/30/2018 at 5:10 AM INDICATION: osteomyelitis ADDITIONAL INFORMATION: Chronic right lower extremity osteomyelitis, referred for 2nd opinion for right lower extremity amputation COMPARISON: 07/28/2018 tibia-fibula radiographs and 07/30/2018 foot MRI TECHNIQUE: AP, lateral and oblique radiographs of the foot, AP and lateral views of the tibia-fibula FINDINGS: Sequela of advanced Charcot arthropathy is again identified, with disruption, debris, sclerosis and fragmentation of the midfoot, talus, calcaneus, tibia and fibula along with the navicular. Dorsal dislocation of the tarsometatarsal joints is present. Chronic periosteal new bone formation extends along the distal shaft of the fibula and tibia, with the overall degree of periostitis appearing slightly increased compared to 07/28/2018. Chronic fragmentation of the tibial tuberosity is unchanged, with mild soft tissue swelling in this region. No large knee joint effusion identified. Generalized decreased bone mineralization is present. Tiny foci of questionable subcutaneous emphysema are present at the level of the ankle. IMPRESSION: 1. Sequela of advanced Charcot arthropathy of the midfoot, hindfoot and tibiotalar articulation with advanced osseous destruction, debris and chronic periosteal new bone formation, with or without underlying osteomyelitis. 2. Degree of distal tibial and fibular periostitis appears slightly increased compared to 07/28/2018 3. Tiny foci of questionable subcutaneous emphysema at the level of the ankle in this patient with reported bleeding wounds in this region. 10/30/2018 [facility] Foot series DX EXAM: XR RIGHT FOOT 3 VIEWS EXAM: XR RIGHT TIBIA 2 VIEWS DATE: 10/30/2018 at 5:10 AM INDICATION: osteomyelitis ADDITIONAL INFORMATION: Chronic right lower extremity osteomyelitis, referred for 2nd opinion for right lower extremity amputation COMPARISON: 07/28/2018 tibia-fibula radiographs and 07/30/2018 foot MRI TECHNIQUE: AP, lateral and oblique radiographs of the foot, AP and lateral views of the tibia-fibula FINDINGS: Sequela of advanced Charcot arthropathy is again identified, with disruption, debris, sclerosis and fragmentation of the midfoot, talus, calcaneus, tibia and fibula along with the navicular. Dorsal dislocation of the tarsometatarsal joints is present. Chronic periosteal new bone formation extends along the distal shaft of the fibula and tibia, with the overall degree of periostitis appearing slightly increased compared to 07/28/2018. Chronic fragmentation of the tibial tuberosity is unchanged, with mild soft tissue swelling in this region. No large knee joint effusion identified. Generalized decreased bone mineralization is present. Tiny foci of questionable subcutaneous emphysema are present at the level of the ankle. IMPRESSION: 1. Sequela of advanced Charcot arthropathy of the midfoot, hindfoot and tibiotalar articulation with advanced osseous destruction, debris and chronic periosteal new bone formation, with or without underlying osteomyelitis. 2. Degree of distal tibial and fibular periostitis appears slightly increased compared to 07/28/2018 3. Tiny foci of questionable subcutaneous emphysema at the level of the ankle in this patient with reported bleeding wounds in this region. 10/30/2018 [facility] Ext Lower Venous Doppler Bilat US EXAM: US BILATERAL LOWER EXTREMITY VENOUS DOPPLER DATE: 10/30/2018 1139 hours INDICATION: DVT evaluation COMPARISON: Ultrasound 07/29/2018. TECHNIQUE: Multiplanar grayscale, color Doppler and spectral Doppler ultrasound of the bilateral lower extremity veins. FINDINGS: Right Thigh Veins: Common Femoral: Patent. Femoral (SFV): Echogenic thrombus is now seen in the distal surgical femoral vein, which is noncompressible. Turbulent flow is seen in the segment. Popliteal: Redemonstration of echogenic thrombus is also seen in the proximal popliteal vein, which is noncompressible. Flow is seen on color Doppler in this segment. Proximal Greater Saphenous: Patent. Proximal Deep Femoral Veins: Patent. Left Thigh Veins: Common Femoral: Patent. Femoral (SFV): Patent. Popliteal: Patent. Proximal Greater Saphenous: Patent. Proximal Deep Femoral Veins: Patent. IMPRESSION: 1. Interval worsening of right popliteal deep vein thrombosis, which now extends proximally into the distal superficial femoral vein. 2. No other deep venous thrombosis is identified. Finding was discussed with Dr. Caldera (Attending Hospitalist) at via telephone at 1340 hours on 10/30/2018. 10/30/2018 [facility] Chest 1view DX EXAM: XR CHEST 1 VIEW DATE: 10/30/2018 3:42 CDT INDICATION: - Evaluation of PICC line vs mid-line from OSH. FINDINGS: Comparison is made to 08/06/2018. Cardiomediastinal silhouette is unchanged. The lungs are low in volume with right lower lobe platelike atelectasis. No pleural effusions. No PICC line is identified. IMPRESSION: 1. The right-sided PICC line has been removed or pulled back out of the [id number] when compared to the prior study dated 08/06/2018. No PICC line is identified on this radiograph. 2. Lungs are low in volume with right lower lobe platelike atelectasis. 10/30/2018 [facility] Chest 1 v for Placement DX EXAM: XR CHEST 1 VIEW DATE: 08/06/2018 15:02 ANIMAL NUTRITION CONSULTANT INDICATION: Line Placement - Chest 1 view for line placement COMPARISON: 01/30/2017 TECHNIQUE: AP chest, semierect. FINDINGS: Study is limited by patient rotation. Lines and tubes, and life support devices: Right PICC line tip overlies the SVC. Lungs and pleura: Mild right infrahilar subsegmental atelectasis. Scattered calcific granulomas are seen. No new pulmonary or pleural based abnormality is identified. Heart and mediastinum: Unchanged. Bones and soft tissues: Age-indeterminate right lower posterior lateral rib fracture deformities. Degenerative changes of the left shoulder. IMPRESSION: 1. Study limited by patient rotation. Otherwise, no acute cardiopulmonary abnormality. 2. Age-indeterminate right lower posterolateral rib fracture deformities. Correlation for focal pain recommended. 08/06/2018 [facility] Guided Needle BX/Asp/Inj/NeedLoc US EXAM: ULTRASOUND-GUIDED RIGHT ANKLE ASPIRATION DATE: 08/01/2018 14:19 ANIMAL NUTRITION CONSULTANT INDICATION: - I\\T\\D of RLE abscess COMPARISON: Right foot and ankle magnetic resonance imaging 07/30/2018 TECHNIQUE: Consent: An informed consent was obtained from the patient prior to the procedure. Appropriate time out procedures were performed. Preliminary ultrasound demonstrates large amount of hyperechoic tissue filling the anterior recesses of the tibiotalar joint as well as hyperechoic material surrounding the posterior tibial tendon. A small amount of complex fluid was identified within the posterolateral gutter of the tibiotalar joint. Additional multiloculated fluid collection was seen along the medial soft tissues of the hindfoot, corresponding to the fluid collection seen on magnetic resonance imaging. The skin was prepped and draped in the usual fashion under aseptic precautions. 1% lidocaine was utilized for local anesthesia. Under direct ultrasound guidance, a 22-gauge needle was 1st advanced into the multiloculated fluid collection on the medial aspect of the ankle. 6 mL of serosanguineous fluid was aspirated from this collection. Post procedure imaging demonstrated near complete resolution of the fluid collection. Then under ultrasound guidance, a 22-gauge needle was advanced into the complex fluid within the posterolateral gutter of the tibiotalar joint. No fluid was yielded on aspiration. Subsequently, under ultrasound guidance, a 20-gauge needle was advanced into the complex fluid collection which again yielded no fluid. No immediate complications. FINDINGS: Generalized soft tissue within the anterior ankle and around the posterior tibial tendons. Medial hindfoot complex fluid collection. IMPRESSION: 1. Technically successful ultrasound guided aspiration of complex fluid collection in the medial soft tissues of the ankle, which yielded 6 mL of serosanguineous fluid sent for lab analysis. 2. Large amount of hyperechoic soft tissue within the anterior gutters of the ankle joint and around the posterior tibial tendon. 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 Aspiration of the tibiotalar joint yielded no fluid. 08/01/2018 [facility] Foot wo contrast MRI EXAM: MR RIGHT FOOT WITHOUT CONTRAST DATE: 07/30/2018 10:24 ANIMAL NUTRITION CONSULTANT INDICATION: - to evaluate for osteomyelitis and fluid collection/ abscess COMPARISON: Radiographs dated 07/28/2018, MRI dated 01/31/2017. TECHNIQUE: Multiplanar MR imaging of the foot without contrast. Area imaged: Forefoot and hindfoot IV contrast: None. FINDINGS: BONES: Partial collapse of the talus and anterior portion of the calcaneus is seen with asymmetric widening of the tibiotalar joint. Signal abnormality with erosions and destructive changes are seen in the calcaneus, talus and navicular bones with collapse of the cuboid bone and cuneiform bones. Mild signal abnormality is also noted at the bases of the metatarsals. Signal abnormality is also noted in the left distal tibia and fibula with periosteal reaction. SOFT TISSUES: Moderate size effusion is seen at the tibiotalar joint extending into the sinus tarsi with intra-articular loose bodies. Diffuse soft tissue edema is noted around the hindfoot and forefoot. A tubular complex fluid collection is seen in the medial soft tissues tracking along the medial plantar midfoot/hindfoot measuring approximately 1.3 x 2 x 6.5 cm. MUSCLES: No muscular edema, fluid collection or atrophy. TENDONS: Increased signal is noted within the Achilles tendon. IMPRESSION: 1. Extensive destructive change involving the tibiotalar and subtalar joints with associated marrow edema and moderate joint effusions. These findings are consistent with chronic osteomyelitis and septic arthritis. 2. Changes consistent with Charcot's arthropathy throughout the midfoot and Lisfranc joint. Superimposed infection in this region is not excluded. 3. 1.3 x 2.0 x 6.5 cm complex tubular fluid collection in the medial soft tissues tracking along the medial plantar midfoot/hindfoot. 07/30/2018 [facility] Angiogram leg unilateral VR PROCEDURE: Lower extremity angiography Date: 07/30/2018 Procedural Personnel Attending physician(s): Ronal Dickson MD Fellow physician(s): Stefan Chandler MD Resident physician(s): None Advanced practice provider(s): None Pre-procedure diagnosis: Peripheral vascular disease Post-procedure diagnosis: Same Indication: 67-year-old male with right lower extremity swelling and nonhealing wound. Additional clinical history: None Complications: No immediate complications. IMPRESSION: 1. Right lower extremity arteriography demonstrated no steno-occlusive disease. Three-vessel runoff to the foot. 2. Pelvic angiography and intravascular ultrasound of the iliac arteries demonstrated no stenosis. 3. 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 This is most likely secondary to the presence of chronic deep vein thrombosis within the right leg. PLAN: The patient will be scheduled for right lower extremity venography and recanalization of suspected chronic DVT which is likely contributing to the patient's symptoms. PROCEDURE SUMMARY: - Arterial puncture with ultrasound guidance - Abdominal aortogram - Nonselective pelvic angiography - Intravascular ultrasound PROCEDURE DETAILS: Pre-procedure Consent: Informed consent for the procedure including risks, benefits and alternatives was obtained and time-out was performed prior to the procedure. Preparation: The site was prepared and draped using maximal sterile barrier technique including cutaneous antisepsis. Anesthesia/sedation Level of anesthesia/sedation: Moderate sedation (conscious sedation) Anesthesia/sedation administered by: Anesthesiology Total intra-service sedation time (minutes): 60 Access Local anesthesia was administered. The vessel was sonographically evaluated and judged to be patent. Real time ultrasound was used to visualize needle entry into the vessel and a permanent image was stored. A 5 sheath was placed. Vessel accessed: Left common femoral artery Access technique: Micropuncture set with 21 gauge needle Aortography A 5-[place] Omni Flush catheter was advanced through the sheath and into the abdominal aorta above the level of the renal arteries. Contrast was injected and aortogram performed in the AP projection. Findings: Patent abdominal aorta, without stenosis. Nonselective pelvic angiography The flush catheter was retracted to the distal common aorta. Contrast was injected and nonselective pelvic arteriograms were performed in the [place] projections. Findings: Patent abdominal aorta, without stenosis. Right lower extremity angiography The right lower extremity arterial system was catheterized using the flush catheter. Contrast was injected and right lower extremity arteriogram performed. Vessel catheterized: Right common femoral Findings: Patent 3 vessel run-off to the foot with no flow limiting stenosis. Arteriovenous fistula between the superficial femoral artery and superficial femoral vein to the level of the mid thigh. Intravascular ultrasound The flush catheter was exchanged for a V14 wire which was positioned within the SFA. Evaluation of the bilateral iliac arteries is performed using intravascular ultrasound. This demonstrated no stenosis. Closure Access site angiography performed: No Arterial closure technique: Angioseal Hemostasis achieved from closure technique: Yes Duration of manual compression (minutes): 2 Contrast Contrast agent: Visipaque and CO2 Contrast volume (mL): 160 mL of CO2 and 6 mL of Visipaque contrast Radiation Dose Fluoroscopy time (min): 5.1 Dose (mGy): 744.1 Additional Details Additional description of procedure: None Equipment details: None Specimens removed: None Estimated blood loss (mL): Less than 10 Standardized report: [email or web address] Attestation Signer name: Ronal Dickson MD I attest that I was present for the entire procedure. I reviewed the stored images and agree with the report as written. 07/30/2018 [facility] Vascular/Interventional Radiology Consult PROCEDURE: Lower extremity angiography Date: 07/30/2018 Procedural Personnel Attending physician(s): Ronal Dickson MD Fellow physician(s): Stefan Chandler MD Resident physician(s): None Advanced practice provider(s): None Pre-procedure diagnosis: Peripheral vascular disease Post-procedure diagnosis: Same Indication: 67-year-old male with right lower extremity swelling and nonhealing wound. Additional clinical history: None Complications: No immediate complications. IMPRESSION: 1. Right lower extremity arteriography demonstrated no steno-occlusive disease. Three-vessel runoff to the foot. 2. Pelvic angiography and intravascular ultrasound of the iliac arteries demonstrated no stenosis. 3. 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 This is most likely secondary to the presence of chronic deep vein thrombosis within the right leg. PLAN: The patient will be scheduled for right lower extremity venography and recanalization of suspected chronic DVT which is likely contributing to the patient's symptoms. PROCEDURE SUMMARY: - Arterial puncture with ultrasound guidance - Abdominal aortogram - Nonselective pelvic angiography - Intravascular ultrasound PROCEDURE DETAILS: Pre-procedure Consent: Informed consent for the procedure including risks, benefits and alternatives was obtained and time-out was performed prior to the procedure. Preparation: The site was prepared and draped using maximal sterile barrier technique including cutaneous antisepsis. Anesthesia/sedation Level of anesthesia/sedation: Moderate sedation (conscious sedation) Anesthesia/sedation administered by: Anesthesiology Total intra-service sedation time (minutes): 60 Access Local anesthesia was administered. The vessel was sonographically evaluated and judged to be patent. Real time ultrasound was used to visualize needle entry into the vessel and a permanent image was stored. A 5 sheath was placed. Vessel accessed: Left common femoral artery Access technique: Micropuncture set with 21 gauge needle Aortography A 5-[place] Omni Flush catheter was advanced through the sheath and into the abdominal aorta above the level of the renal arteries. Contrast was injected and aortogram performed in the AP projection. Findings: Patent abdominal aorta, without stenosis. Nonselective pelvic angiography The flush catheter was retracted to the distal common aorta. Contrast was injected and nonselective pelvic arteriograms were performed in the [place] projections. Findings: Patent abdominal aorta, without stenosis. Right lower extremity angiography The right lower extremity arterial system was catheterized using the flush catheter. Contrast was injected and right lower extremity arteriogram performed. Vessel catheterized: Right common femoral Findings: Patent 3 vessel run-off to the foot with no flow limiting stenosis. Arteriovenous fistula between the superficial femoral artery and superficial femoral vein to the level of the mid thigh. Intravascular ultrasound The flush catheter was exchanged for a V14 wire which was positioned within the SFA. Evaluation of the bilateral iliac arteries is performed using intravascular ultrasound. This demonstrated no stenosis. Closure Access site angiography performed: No Arterial closure technique: Angioseal Hemostasis achieved from closure technique: Yes Duration of manual compression (minutes): 2 Contrast Contrast agent: Visipaque and CO2 Contrast volume (mL): 160 mL of CO2 and 6 mL of Visipaque contrast Radiation Dose Fluoroscopy time (min): 5.1 Dose (mGy): 744.1 Additional Details Additional description of procedure: None Equipment details: None Specimens removed: None Estimated blood loss (mL): Less than 10 Standardized report: [email or web address] Attestation Signer name: Ronal Dickson MD I attest that I was present for the entire procedure. I reviewed the stored images and agree with the report as written. 07/29/2018 [facility] Ext Lower Arterial Doppler bilat US EXAM: US BILATERAL LOWER EXTREMITY ARTERIAL DOPPLER DATE: 07/28/2018 0907 hours INDICATION: 67-year-old male resenting with chronic bilateral lower extremity swelling and previously diagnosed osteomyelitis. Concern for compartment syndrome. Cannot appreciate pulses on physical exam on right lower extremity. COMPARISON: None TECHNIQUE: Multiplanar grayscale, color Doppler and spectral Doppler ultrasound images of the bilateral lower extremity arteries. FINDINGS: Calcified atherosclerotic disease is seen along the wall of the right SWITCHBOARD OPERATOR ASSISTANT, right SFA, and right popliteal artery. 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 Right Extremity Waveforms: Common Femoral Artery: 161 cm/s. Monophasic. Profunda Femoral Artery: 55.7 cm/s. Monophasic. Superficial Femoral Artery: Monophasic. Popliteal Artery: 127 cm/s. Monophasic. Posterior Tibialis Artery: 103 cm/s. Monophasic. Anterior Tibialis Artery: 89.1 cm/s. Monophasic. Dorsalis Pedis Artery: 47.5 cm/s. Monophasic. Left Extremity Waveforms: Common Femoral Artery: 93.9 cm/s. Biphasic. Profunda Femoral Artery: 85.2 cm/s, biphasic.. Superficial Femoral Artery: 112 cm/s, triphasic. Popliteal Artery: 103 cm/s, triphasic. Posterior Tibialis Artery: 88.1 cm/s, triphasic. Anterior Tibialis Artery: 93.0 cm/s, triphasic. Dorsalis Pedis Artery: 61.0 cm/s, triphasic. Other: None. IMPRESSION: 1. Monophasic waveforms throughout the right lower extremity indicative of hemodynamically significant inflow disease. 2. Normal triphasic flow throughout the left lower extremity. 07/28/2018 [facility] Ext Lower Venous Doppler Bilat US EXAM: US BILATERAL LOWER EXTREMITY VENOUS DOPPLER DATE: 07/28/2018 0854 hours INDICATION: 67-year-old male presenting with chronic bilateral lower extremity swelling, current worsening right leg swelling. History of prior right lower extremity deep vein thrombosis, currently on Eliquis. COMPARISON: Right lower extremity venous Doppler and ultrasound dated 06/06/2017 and right lower extremity venogram dated 07/16/2017. TECHNIQUE: Multiplanar grayscale, color Doppler and spectral Doppler ultrasound of the bilateral lower extremity veins. FINDINGS: Right Thigh Veins: Common Femoral: Patent. Femoral (SFV): Patent. Popliteal: Partially recannulized nonocclusive thrombus Proximal Greater Saphenous: Patent. Proximal Deep Femoral Veins: Patent. Left Thigh Veins: Common Femoral: Patent. Femoral (SFV): Patent. Popliteal: Patent. Proximal Greater Saphenous: Patent. Proximal Deep Femoral Veins: Patent. Other: Redemonstrated prominent right inguinal lymph node measuring 1.0 cm in short axis. IMPRESSION: Redemonstrated partially recannulized nonocclusive thrombus of the right popliteal vein. No other acute findings of lower extremity deep vein thrombosis. 07/28/2018 [facility] Tibia fibula series DX EXAM: XR RIGHT TIBIA 2 VIEWS DATE: 07/28/2018 1940 INDICATION: - Concern for Osteo UT SECTION: ER COMPARISON: Right tibia-fibula radiograph from 01/19/2017. TECHNIQUE: AP and lateral radiographs of the tibia FINDINGS: There has been interval worsening of the periosteal reaction along the medial and posterior aspect of the distal fibula. Focal areas of bone destruction is present at the distal articular surface of the tibia. Extensive destructive changes are seen within multiple tarsal bones and metatarsal bases, as described in more detail on the concurrent foot radiograph. Marked soft tissue swelling is present at the distal leg, ankle and foot. IMPRESSION: Findings strongly suggestive of cellulitis and osteomyelitis involving the distal tibia, fibula, tarsal bones and proximal metatarsal bones. The findings were relayed to Dr. Whitt by Dr. Dunbar at 2013 hours on 07/28/2018 over the phone. 07/28/2018 [facility] Foot series DX EXAM: XR RIGHT FOOT 3 VIEWS DATE: 07/28/2018 1940 hours INDICATION: - Concern for Osteo UT SECTION: ER COMPARISON: None available. TECHNIQUE: AP, lateral and oblique radiographs of the foot FINDINGS: Multiple areas of focal bone destruction involving the articular surface of the tibia, talus, calcaneus, other tarsal bones and bases of the metatarsal bones. There is extensive periosteal reaction and new bone formation. There is a mildly displaced fracture through the calcaneal body with sclerotic margins, as well as dislocation of the talonavicular joint. There is pes planus secondary to call canal fracture and destruction of the talus and the tarsal bones. Extensive soft tissue swelling of the foot and ankle is present. IMPRESSION: Extensive soft tissue swelling at the foot and ankle, associated with destruction of the articular surface of the tibia, multiple tarsal and metatarsal bones, subacute/chronic calcaneal body fracture, as well as dislocations at the intertarsal and tarsometatarsal joints. These findings strongly suggest acute on chronic osteomyelitis with or without Charcot joint. 07/28/2018 [facility] Ext Lower Venous Doppler Unilat US EXAM: US RIGHT LOWER EXTREMITY VENOUS DOPPLER DATE: 06/06/2017 1:10 PM [employer]SULT[employer] INDICATION: - I82.409 Acute embolism and thrombosis of unspecified deep veins of unspecified lower extremity COMPARISON: 04/10/2017 TECHNIQUE: Multiplanar grayscale, color Doppler and spectral Doppler ultrasound images of the bilateral lower extremity veins. FINDINGS: Right Thigh Veins: Common Femoral: Patent. Femoral (SFV): Patent. Popliteal: Again shows partial recanalization with nonocclusive thrombus. Greater Saphenous: Proximal portion is patent. The mid and distal portions are showing occlusive thrombus. Deep Femoral Veins: Patent. Right Calf Veins: Paired Peroneal: Not visualized due to edema. Posterior Tibial Calf: Patent. Shotty inguinal lymph nodes are again seen measuring 8 mm in short axis on the right side. Subcutaneous edema noted. IMPRESSION: Again seen partial recanalization with nonocclusive thrombus in the right popliteal vein, essentially unchanged compared to prior exam. Superficial venous thrombophlebitis of the mid and distal right greater saphenous vein. 06/06/2017 [facility] Lower Venous Doppler Unilat US EXAM: US RIGHT LOWER EXTREMITY VENOUS DOPPLER DATE: 04/10/2017 INDICATION: - M79.89 Other specified soft tissue disorders,R60.9 Edema, unspecified ADDITIONAL INFORMATION: None. COMPARISON: None. TECHNIQUE: Multiplanar grayscale, color Doppler and spectral Doppler ultrasound images of the right lower extremity veins. DISCUSSION: Right Thigh Veins: Common Femoral: Patent. Femoral (SFV): Patent. Popliteal: Internal echoes, noncompressible with partial color flow. Proximal Greater Saphenous: Patent. Deep Femoral Veins: Patent. Right Calf Veins: Paired Peroneal: Patent. VERY LIMITED DUE TO SWELLING. Posterior Tibial Calf: Patent. A large superficial vein (varicose?) demonstrates no color flow and and incompletely compressible. Large right groin lymph node may be reactive. IMPRESSION 1. Partially occlusive, incompressible thrombus of the right popliteal vein. 2. Occlusive thrombus of a superficial dilated vein, likely a varicose vein. 3. Limited evaluation of the calf veins due to significant soft tissue swelling. 4. Findings were discussed with Stefanie Wilcox and Brandi by telephone on 04/10/07 at the time of exam. Patient made aware of findings and instructed to go to emergency center. Patient acknowledged understanding. 04/10/2017 [facility] Fib wo contrast MRI EXAM: MR RIGHT TIBIA WITHOUT CONTRAST DATE: 01/30/2017 2:14 PM CDT INDICATION: Leg cellulitis- to rule out osteomyelitis COMPARISON: X-ray tibia/fibula 01/19/2017 TECHNIQUE: Multiplanar, multisequence noncontrast MR imaging of the IV contrast: None FINDINGS: BONES: No confluent decreased T1 signal or significant bone marrow edema to suggest osteomyelitis. No appreciable bone marrow abnormality seen on the left. No cortical irregularity or erosion. No fracture. MUSCLES: Extensive interfascial and intramuscular edema, which may indicate myositis. No drainable intramuscular fluid collection. TENDONS: No focal tendon signal abnormality, or evidence for tenosynovitis. SOFT TISSUES: Extensive soft tissue swelling and interfascial edema of the right lower extremity. A 1.4 x 4.0 x 0.8 cm elongated fluid collection is seen along the lateral aspect of the right lower extremity. No abnormality of the visualized neurovascular structures. IMPRESSION: 1. No evidence of osteomyelitis. 2. Cellulitis of the right lower extremity with focal, elongated perifascial fluid collection in the subcutaneous soft tissues of the lateral leg. 3. Interfascial and intramuscular edema in the anterior and peroneal compartments, suggesting myositis. 01/31/2017 [facility] Chest 1 v for Placement DX EXAM: XR CHEST 1 VIEW DATE: 01/30/2017 INDICATION: Line Placement - Chest 1 view for line placement . Comparison is made with January 25 FINDINGS: The patient has a new right upper extremity PICC line with its tip in the superior vena cava. The mediastinal silhouette is stable. Costophrenic sulci are sharp. There is platelike atelectasis at both lung bases. The remainder the lungs are clear IMPRESSION: New right PICC line. 01/30/2017 [facility] Chest 2 views DX EXAM: XR CHEST 2 VIEWS DATE: 01/25/2017 3:47 PM CDT INDICATION: - PNA? PA and lateral views of the chest are compared to January 19. The cardiomediastinal silhouette is stable. Subsegmental atelectasis is seen in the bilateral lower lobes. There are calcified granulomas in the left lower lobe and right upper lobe. No pleural effusions are seen. IMPRESSION: Bilateral lower lobe subsegmental atelectasis. 01/25/2017 [facility] Retroperitoneal Complete US EXAM: US RETROPERITONEAL COMPLETE DATE: 01/19/2017 4:19 PM CDT INDICATION: - GRACY on CKD ADDITIONAL INFORMATION: None. COMPARISON: None. TECHNIQUE: Multiplanar grayscale and color Doppler ultrasound of the kidneys, aorta, IVC and urinary bladder. DISCUSSION: Right kidney: Removed in 2002 Left kidney: Hydronephrosis: None. Size: 14.5 x 7.8 x 6.1 cm. Echogenicity: Normal. Calculi: None. Cysts: Simple Midpole cyst measuring 1.8 x 2.0 x 1.9 cm Masses: None. Bladder: Normal. IMPRESSION: 1. No obstructive uropathy. 2. Simple left renal cyst; Bosniak 1. 3. The right kidney is absent. Left kidney is hypertrophic. 01/19/2017 [facility] Ext Lower Venous Doppler Bilat US EXAM: US BILATERAL LOWER EXTREMITY VENOUS DOPPLER DATE: 01/19/2017 2:05 PM CDT INDICATION: - BLE swelling R>L. Sick. Please perform at bedside ADDITIONAL INFORMATION: None. COMPARISON: None. TECHNIQUE: Multiplanar grayscale, color Doppler and spectral Doppler ultrasound of the bilateral lower extremity veins. DISCUSSION: Right Thigh Veins: Common Femoral: Patent. Femoral (SFV): Patent. Popliteal: Patent. Proximal Greater Saphenous: Patent. Deep Femoral Veins: Patent. Left Thigh Veins: Common Femoral: Patent. Femoral (SFV): Patent. Popliteal: Patent. Proximal Greater Saphenous: Patent. Deep Femoral Veins: Patent. IMPRESSION: 1. Normal. No deep venous thrombosis (DVT). 01/19/2017 [facility] Tibia fibula series DX EXAM: XR RIGHT TIBIA 2 VIEWS DATE: 01/19/2017 12:42 PM CDT. INDICATION: Right lower extremity cellulitis. COMPARISON: None. TECHNIQUE: AP and lateral radiographs of the right tibia. UT SECTION: ER FINDINGS: Subtle periosteal reaction is identified along the lateral aspect of the tibia and the medial aspect of the fibula. Given the patient's concomitant right lower extremity swelling and edema, this may be insurance representative of underlying osteomyelitis. Degenerative changes are also noted at the right midfoot. IMPRESSION: Periosteal reaction of the lateral aspect of the right tibia and medial aspect of the right fibula. Given the concomitant findings of right lower extremity cellulitis, this may be insurance representative of underlying osteomyelitis. Magnetic resonance imaging may be obtained for confirmation. 01/19/2017 [facility] Chest 1view DX EXAM: XR CHEST 1 VIEW DATE: 01/19/2017 12:30 PM CDT INDICATION: Undifferentiated sepsis. COMPARISON: Chest radiograph dated 10/17/2016. TECHNIQUE: AP chest. UT SECTION: ER FINDINGS: Lines, tubes and hardware: None. Lungs and pleura: No focal opacities or consolidations are seen within the lungs. The costophrenic sulci are clear. No pneumothorax. Linear opacities are noted at the right lung base which are likely indicative of subsegmental atelectasis. Heart and mediastinum: The heart is within normal limits. The descending aorta is ectatic and tortuous. Bones: No acute bony abnormality is identified. Severe degenerative changes of the right glenohumeral joint, partially imaged. Degenerative changes of the spine. Upper abdomen: Nonspecific elevation of the right hemidiaphragm appears increased since 10/17/16. IMPRESSION: 1. Right basilar subsegmental atelectasis. Otherwise, no acute cardiopulmonary process identified. 2. Ectatic and tortuous thoracic aorta. 3. Nonspecific elevation of the right hemidiaphragm appears increased since 10/17/16. This could represent eventration or phrenic nerve palsy. 4. Severe degenerative changes of the right glenohumeral joint are partially imaged. 01/19/2017 [facility] Chest 2 views DX EXAM: Chest 2 views DX HISTORY: shortness of breath COMPARISON: None Heart size is normal. There is bilateral basilar interstitial reticular marking prominence. No consolidation, effusion or pneumothorax. Moderate discogenic degenerative changes are noted. There is a small calcified granuloma overlying the right upper lobe. IMPRESSION: Basilar interstitial pulmonary which could represent atelectasis or interstitial lung disease such as pulmonary fibrosis. 10/17/2016 [facility]errier Consultation Notes No Data Provided for This Section Discharge Summaries No Data Provided for This Section History and Physicals No Data Provided for This Section Vital Signs Vital Sign Value Date Comments Source Temperature Oral (F) 97.6 F 02/05/2019 [facility] Heart Rate 53 02/05/2019 [facility] Respitory Rate 18 02/05/2019 [facility] Systolic (mm Hg) 114 02/05/2019 [facility] Diastolic (mm Hg) 63 02/05/2019 [facility] Temperature Oral (F) 98.2 F 02/05/2019 [facility] Heart Rate 66 02/05/2019 [facility] Respitory Rate 18 02/05/2019 [facility] Systolic (mm Hg) 105 02/05/2019 [facility] Diastolic (mm Hg) 58 02/05/2019 [facility] Systolic (mm Hg) 105 02/05/2019 [facility] Diastolic (mm Hg) 65 02/05/2019 [facility] Heart Rate 50 02/05/2019 [facility] Temperature Oral (F) 98.5 F 02/05/2019 [facility] Respitory Rate 18 02/05/2019 [facility] Height 198.12 cm 01/26/2019 [facility] Weight 95.007 01/26/2019 [facility] BMI Calculated 24.2 01/26/2019 [facility] Height 198.12 cm 01/26/2019 [facility] Weight 111.591 01/26/2019 [facility] BMI Calculated 28.43 01/26/2019 [facility] Height 190.5 cm 01/23/2019 [facility] Weight 100 01/23/2019 [facility] BMI Calculated 27.56 01/23/2019 [facility] Systolic (mm Hg) 138 11/07/2018 [facility] Diastolic (mm Hg) 76 11/07/2018 [facility] Respitory Rate 17 11/07/2018 [facility] Systolic (mm Hg) 132 11/07/2018 [facility] Diastolic (mm Hg) 84 11/07/2018 [facility] Respitory Rate 18 11/07/2018 [facility] Systolic (mm Hg) 144 11/07/2018 [facility] Diastolic (mm Hg) 84 11/07/2018 [facility] Respitory Rate 16 11/07/2018 [facility] Temperature Oral (F) 98.4 F 11/07/2018 [facility] Heart Rate 78 11/07/2018 [facility] Heart Rate 73 11/07/2018 [facility] Temperature Oral (F) 98.3 F 11/07/2018 [facility] Heart Rate 62 11/07/2018 [facility] Temperature Oral (F) 98 F 11/07/2018 [facility] BMI Calculated 26.24 10/30/2018 [facility] Weight 103.009 10/30/2018 [facility] Height 198.12 cm 10/30/2018 [facility] Height 198.12 cm 09/08/2018 [facility] BMI Calculated 29.41 09/08/2018 [facility] Weight 115.455 09/08/2018 [facility] Heart Rate 99 09/08/2018 [facility] Respitory Rate 16 09/08/2018 [facility] Systolic (mm Hg) 116 09/08/2018 [facility] Diastolic (mm Hg) 60 09/08/2018 [facility] Heart Rate 86 08/06/2018 [facility] Respitory Rate 20 08/06/2018 [facility] Systolic (mm Hg) 125 08/06/2018 [facility] Diastolic (mm Hg) 67 08/06/2018 [facility] Temperature Oral (F) 98.0 F 08/06/2018 [facility] Respitory Rate 20 08/06/2018 [facility] Systolic (mm Hg) 131 08/06/2018 [facility] Diastolic (mm Hg) 73 08/06/2018 [facility] Temperature Oral (F) 97.7 F 08/06/2018 [facility] Heart Rate 82 08/06/2018 [facility] Respitory Rate 20 08/06/2018 [facility] Heart Rate 90 08/06/2018 [facility] Systolic (mm Hg) 161 08/06/2018 [facility] Diastolic (mm Hg) 78 08/06/2018 [facility] Temperature Oral (F) 97.6 F 08/06/2018 [facility] Weight 115.2 08/01/2018 [facility] Height 198.12 cm 08/01/2018 [facility] Height 198.12 cm 07/30/2018 [facility] Weight 115.2 07/30/2018 [facility] BMI Calculated 29.35 07/29/2018 [facility] Weight 115.2 07/29/2018 [facility] Height 198.12 cm 07/29/2018 [facility] BMI Calculated 30.11 07/29/2018 [facility] BMI Calculated 30.46 07/08/2018 [facility] Weight 119.545 07/08/2018 [facility] Height 198.12 cm 07/08/2018 [facility] Heart Rate 106 07/08/2018 [facility] Respitory Rate 14 07/08/2018 [facility] Systolic (mm Hg) 113 07/08/2018 [facility] Diastolic (mm Hg) 62 07/08/2018 [facility] BMI Calculated 28.72 05/07/2018 [facility] Systolic (mm Hg) 101 05/07/2018 [facility] Diastolic (mm Hg) 56 05/07/2018 [facility] Heart Rate 96 05/07/2018 [facility] Respitory Rate 14 05/07/2018 [facility] Height 198.12 cm 05/07/2018 [facility] Weight 112.727 05/07/2018 [facility] Weight 117.727 01/29/2018 [facility] BMI Calculated 29.99 01/29/2018 [facility] Height 198.12 cm 01/29/2018 [facility] Respitory Rate 16 01/29/2018 [facility] Heart Rate 106 01/29/2018 [facility] Systolic (mm Hg) 138 01/29/2018 [facility] Diastolic (mm Hg) 83 01/29/2018 [facility] BMI Calculated 30.46 2017 [facility] Weight 119.545 2017 [facility] Height 198.12 cm 2017 [facility] Systolic (mm Hg) 134 2017 [facility] Diastolic (mm Hg) 86 2017 [facility] Heart Rate 94 2017 [facility] BMI Calculated 32.31 06/03/2017 [facility] Weight 126.818 06/03/2017 [facility] Respitory Rate 16 06/03/2017 [facility] Height 198.12 cm 06/03/2017 [facility] Heart Rate 72 06/03/2017 [facility] Systolic (mm Hg) 144 06/03/2017 [facility] Diastolic (mm Hg) 74 06/03/2017 [facility] Respitory Rate 16 04/11/2017 [facility] Temperature Oral (F) 96.0 F 04/11/2017 [facility] Heart Rate 53 04/11/2017 [facility] Systolic (mm Hg) 130 04/11/2017 [facility] Diastolic (mm Hg) 72 04/11/2017 [facility] Systolic (mm Hg) 132 04/11/2017 [facility] Diastolic (mm Hg) 70 04/11/2017 [facility] Temperature Oral (F) 96.8 F 04/11/2017 [facility] Heart Rate 56 04/11/2017 [facility] Respitory Rate 16 04/11/2017 [facility] Respitory Rate 18 04/11/2017 [facility] Systolic (mm Hg) 161 04/11/2017 [facility] Diastolic (mm Hg) 87 04/11/2017 [facility] Heart Rate 78 04/11/2017 [facility] Temperature Oral (F) 96.0 F 04/11/2017 [facility] Weight 118.182 04/11/2017 [facility] BMI Calculated 30.11 04/11/2017 [facility] Height 198.12 cm 04/11/2017 [facility] BMI Calculated 30.11 04/10/2017 [facility] Weight 118.182 04/10/2017 [facility] Height 198.12 cm 04/10/2017 [facility] Systolic (mm Hg) 174 01/31/2017 [facility] Diastolic (mm Hg) 80 01/31/2017 [facility] Respitory Rate 28 01/31/2017 [facility] Systolic (mm Hg) 157 01/31/2017 [facility] Diastolic (mm Hg) 86 01/31/2017 [facility] Respitory Rate 24 01/31/2017 [facility] Temperature Oral (F) 98.7 F 01/31/2017 [facility] Respitory Rate 29 01/31/2017 [facility] Systolic (mm Hg) 164 01/31/2017 [facility] Diastolic (mm Hg) 75 01/31/2017 [facility] Heart Rate 68 01/31/2017 [facility] Heart Rate 56 01/31/2017 [facility] Temperature Oral (F) 97.0 F 01/30/2017 [facility] Temperature Oral (F) 97.8 F 01/30/2017 [facility] Weight 125 01/20/2017 [facility] Weight 125 01/19/2017 [facility] Height 198.12 cm 01/19/2017 [facility] Height 198.12 cm 01/19/2017 [facility] Weight 125 01/19/2017 [facility] Heart Rate 132 01/19/2017 [facility] BMI Calculated 31.85 01/19/2017 [facility] Height 198.12 cm 01/19/2017 [facility] Encounters Location Location Details Encounter Type Encounter Number Reason For Visit Attending Provider ADM Date DC Date Status Source Outpatient [id number] NCI PAZ 01/03/2015 Active [facility] [id number] NIC PAZ 03/17/2015 Active [facility] Out[facility] [id number] NIC PAZ 06/08/2015 Active [facility] [id number] NIC PAZ 09/28/2015 Active [facility] [id number] NIC PAZ 11/08/2015 Active [facility] [id number] NIC PAZ 12/06/2015 [facility] [id number] NIC PAZ 04/09/2016 [facility] [id number] NIC PAZ 07/09/2016 [facility] [id number] NIC PAZ 10/08/2016 Active [facility] [id number] Nic Paz 10/17/2016 10/18/2016 [facility] [id number] NIC PAZ 12/11/2016 Active [facility] Inpatient [id number] Saeid Arash 01/19/2017 01/31/[address] [facility] Outpatient [id number] NIC PAZ 03/13/2017 Active [facility] Outpatient [id number] NIC PAZ 03/22/2017 Active [facility] [place] [facility] [id number] Brenton Wilcox 04/10/2017 04/11/2017 [facility] [id number] Akankshamariam Arash 04/10/2017 04/11/2017 [facility] Outpatient [id number] NIC PAZ 04/24/2017 Active [facility] Phone Message [id number] 05/06/2017 05/08/2017 [facility] Phone Message [id number] 05/13/2017 05/15/2017 [facility] [facility] Phone Message [id number] 05/14/2017 05/16/2017 [facility] Outpatient [id number] NIC PAZ 06/03/2017 Active [facility] Outpatient [id number] Nic Paz 06/03/2017 06/04/2017 [facility] Outpatient Imaging - [place] Outpt Diag Services [id number] Nic Paz 06/06/2017 06/07/2017 [facility] [place] Phone Message [id number] 06/10/2017 06/12/2017 [facility] Outpatient [id number] NIC PAZ 2017 [facility] [place] [facility] [id number] Nic Paz 2017 08/09/2017 [facility] Outpatient [id number] NIC PAZ 10/09/2017 [facility] [place] Amb[facility] Pre-Reg [id number] Nic Paz 10/09/2017 10/09/2017 [facility] [place] Phone Message [id number] 12/04/2017 12/06/2017 [facility] Outpatient [id number] NIC PAZ 01/29/2018 Active [facility] [place] Outpatient [id number] Nic Paz 01/29/2018 01/30/2018 [facility] Primary Care [facility] [place] Phone Message [id number] 02/13/2018 02/15/2018 [facility] Outpatient [id number] NIC PAZ 04/01/2018 Active [facility] Pre-Reg [id number] Nic Paz 04/01/2018 04/01/2018 [facility] Outpatient [id number] NIC PAZ 05/07/2018 Active [facility] Outpatient [id number] Nic Paz 05/07/2018 05/08/2018 [facility] Outpatient [id number] NIC PAZ 07/08/2018 Active [facility] Outpatient [id number] Nic Paz 07/08/2018 07/09/2018 [facility] Inpatient [id number] Elizabeth Bonnie 07/29/2018 08/07/2018 [facility] Primary Care [facility] [place] Phone Message [id number] 08/06/2018 [facility] Outpatient [id number] NIC PAZ 09/08/2018 Active [facility] [place] Outpatient [id number] Nic Paz 09/08/2018 09/09/2018 [facility] Outpatient [id number] NIC PAZ 10/06/2018 Active [facility] [place] Ambulatory Pre-Reg [id number] Nic Paz 10/06/2018 10/06/2018 [facility] Inpatient [id number] Nic Paz 10/30/2018 11/07/2018 [facility] Inpatient [id number] Maria Fernanda Macedo 01/26/2019 02/05/2019 [facility] Procedures Procedure Code Date Perfomer Comments Source Selective catheter placement, internal carotid artery, unilateral, with angiography of the ipsilateral intracranial carotid circulation and all associated radiological supervision and interpretation, includes angiography of the extracranial [place] [id number] 01/26/2019 [facility] Primary percutaneous transluminal mechanical thrombectomy, noncoronary, non-intracranial, arterial or arterial bypass graft, including fluoroscopic guidance and intraprocedural pharmacological thrombolytic injection(s); initial vessel [id number] 01/26/2019 [facility] Selective catheter placement, common carotid or innominate artery, unilateral, any approach, with angiography of the ipsilateral extracranial carotid circulation and all associated radiological supervision and interpretation, includes angiography of the c [id number] 01/26/2019 [facility] Amputation below-knee [id number] 10/22/2018 [facility] Insertion of PICC (peripherally inserted central catheter) [id number] 08/07/2018 [facility] Arthrocentesis, aspiration and/or injection, major joint or bursa (eg, shoulder, hip, knee, subacromial bursa); without ultrasound guidance 08/01/2018 [facility] Vascular surgery procedure<sup>1</sup> [id number] 06/24/2014 Bilateral legs for lymphedema [facility] Colonoscopy [id number] 06/24/2013 [facility] Debridement<sup>2</sup> [id number] 06/24/2009 of the right foot [facility] Nephrectomy [id number] 11/22/2002 [facility], JESSE Guerrier, JESSE [place] Assessment and Plan Assessment and Plan Date Source Extracted from:Title: Stroke Author: Cara Saldaña NP Date: 02/04/19 [facility]KE NEUROLOGY DISCHARGE SUMMARY Date of Admission: 01/26/19 Date of Discharge: 02/05/19 Attending of Record: Dr. Macedo Admit Diagnosis: R MCA syndrome Discharge Diagnosis: Acute ischemic right MCA stroke Acute metabolic encephalopathy Atrial Fibrillation Dysarthria Dysphagia following cerebral infarction Aphasia- mixed Essential hypertension PFO+ Anemia CKD Stage 4 (GFR 15-29) Renal cell cancer s/p nephrectomy Hematuria Urinary Retention Consults Obtained: Urology Renal Brief HPI: 68 yo with a. fib, off Eliquis for 2 weeks, DVT with IVC filter, renal cell carcinoma s/p nephrectomy was in day surgery for IVC filter removal after which he developed right MCA syndrome with NIHSS 26, CT with hyperdense sign and ASPECTS 9, CTA not done due to renal function, taken straight to IA suite which showed RM1 occlusion s/p suction with TICI 3. Started on heparin drip for DVT given small stroke size and high risk of recurrent stroke. Hospital Course: 01/29: pt more awake today, PT/OT recommending IPR. oral AC started. 01/30: D/C soto catheter, bladder scan Q6H, continue Eliquis, monitor for hematuria, increase activity, encourage po intake 01/31 exam stable. Requiring Q6H straight caths for urinary retention, IPR- Referral sent to [facility] on 01/30 02/01: Patient more confused overnight, impulsive, trying to get out of bed, placed in restraints for safety. per RN he's not sleeping at night. started on Seroquel this am. Melatonin QHS 02/02: restraints d/c @1010 will continue to monitor, exam stable 02/03: BP lower, pt is asymptomatic, exam is unchanged. r CTH from overnight stable. daughter @ BS update provided. medically ready for DC. 02/04: Cr increased from Seroquel and is now improving. his baseline cr is 2.5. exam is stable. medically ready for DC 02/05: exam stable, medically ready for DC Discharge Physical Examination: NEURO: Mental Status: awake, alert, able to tell me his name, and knows he's in the hospital. identifies his daughter Language: speech is dysarthric, following commands, but aphasic Cranial Nerves: PERRL 3 mm/brisk. 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 CTH 02/03/19: No hemorrhagic changes within the right MCA territory infarction. There may be slightly increased involvement of the right insula. MRI: Recent ischemic changes in the posterior right MCA territory without hemorrhagic transformation. Scattered chronic ischemic changes. TTE: 1) Left ventricular interenal dimensions are normal. 2) There is moderate concentric left ventricular hypertrophy. 3) Systolic function is normal with an overall estimated ejection fraction of 55 - 60%. 4) There is abnormal diastolic function. 5) Mitral annular calcification is present. 6) The left atrium is structurally normal. 7) There is marked sclerosis of the aortic valve with no significant stenosis. 8) There is no hemodynamic abnormality noted across the mitral or aortic valves. 9) Atherosclerotic changes are noted in the ascending aorta. 10) Right ventricular size, structure and function, tricuspid valve structure and function and right atrial structure are normal. 11) There is trace tricuspid regurgitation with suspected normal right sided pressures. 12) The pericardium is normal. 13) There is a moderate to large number of microcavitations in the left sided chambers by agitated saline contrast injection 14) Compared to a study dated 01/20/17 LDL 58 A1C <3.5 Etiology of Stroke: cardioembolic Discharge Medications: see HMR Discharge: Rehab Follow up: - [place] [facility] Clinic #[phone] in 4 weeks - PCP in 1-2 weeks for post hospitalization care - Renal - Urology Discharge Instructions/Recommendations: - Continue Eliquis 5 mg Q12 hr for secondary stroke prevention - Continue Lipitor. LDL goal <70 - Continue metoprolol /lisinopril/norvasc for BP control. SBP goal <150/80. - Take your BP 2-3 times per day and record in a journal. Take this journal with you to your follow-up appointment. - The patient/ family received stroke education regarding signs and symptoms of stroke. They were instructed to call 911 if similar symptoms occurred again. The list of their medications on discharged was reviewed with the patient and all questions were answered. - Continue dysphagia adv. chopped/thin- CC diet - Continue PT/OT/ST - Patient is not cleared to drive. please note all medication refills must be obtained from PCP or Stroke Clinic I spent 40 minutes on this discharge which included, discharge summary, medication reconciliation, writing prescriptions, and discussing discharge instructions with patient. [id number] Extracted from:Title: Stroke Author: Cara Saldaña NP Date: 02/03/19 STROKE TEAM PROGRESS NOTE Chief Complaint: Right MCA Syndrome HISTORY OF PRESENT ILLNESS: 68 yo with a. fib, off Eliquis for 2 weeks, DVT with IVC filter, renal cell carcinoma s/p nephrectomy was in day surgery for IVC filter removal after which he developed right mCA syndrome with NIHSS 26, CT with hyperdense sign and ASPECTS around 9, CTA not done due to renal function, taken straight to IA suite which showed RM1 occlusion s/p suction with TICI 3. Started on heparin drip for DVT given small stroke size and high risk of recurrent stroke. Hospital Course: 01/29: pt more awake today, PT/OT recommending IPR. oral AC started. 01/30: D/C soto catheter, bladder scan Q6H, continue Eliquis, monitor for hematuria, increase activity, encourage po intake 01/31 exam stable. Requiring Q6H straight caths for urinary retention, IPR- Referral sent to [facility] on 01/30 02/01: Patient more confused overnight, impulsive, trying to get out of bed, placed in restraints for safety. per RN he's not sleeping at night. started on Seroquel this am. Melatonin QHS 02/02: restraints d/c @1010 will continue to monitor, exam stable 02/03: BP running on low side today, pt is asymptomatic, exam is unchanged. r CTH from overnight stable. daughter @ BS update provided. medically ready for DC. REVIEW OF SYSTEMS: denies BASHIR/CP/SOB ALLERGIES: Clindamycin, Hydralazine Scheduled Meds (16): 01/28/19 allopurinol 200 mg PO Daily 01/28/19 amLODIPine (Norvasc) 10 mg PO Daily 01/29/19 apixaban (Eliquis) 5 mg PO Q12H 01/26/19 atorvastatin 20 mg GT Bedtime 01/27/19 docusate (Colace 100 mg oral capsule) 100 mg PO BID 01/31/19 finasteride (Proscar) 5 mg PO Daily 01/27/19 lidocaine topical (lidocaine topical patch (5% film)) 2 patch TOP QPM 01/28/19 lisinopril 20 mg PO BID 02/01/19 melatonin 10 mg PO Bedtime 01/30/19 metoprolol (metoprolol tartrate) 25 mg PO Q12H 01/28/19 remove patch 2 patch TOP Daily 01/27/19 senna 8.6 mg PO BID 01/26/19 sodium chloride (Saline Flush 0.9%) 10 ml IVP Q12H 01/30/19 sodium ferric gluconate complex + Sodium Chloride 0.9% IV 100 mL (Ferrlecit + Sodium Chloride 0.9% IV 100 mL) 125 mg IV Q7D 110 ml/hr 01/29/19 tamsulosin 0.4 mg PO Daily 01/28/19 (Suspended) torsemide 20 mg PO BID Unscheduled Meds: None One Time Meds: None Continuous Infusions: None Physical Exam Vitals Tmp(F) Pulse BP RR SpO2 FIO2 02/03 12:35 97.1 89 98/63 18 94 --- 02/03 08:18 99.0 93 110/69 18 94 --- 02/03 06:15 ---- 91 94/62 -- --- --- 02/03 03:18 98.8 98 99/64 16 96 --- 02/02 23:20 97.7 101 113/74 16 96 --- 24 Hr Tmax: 99.0F (37.22c) at 02/03 08:18 Vital Signs are the last 5 in the past 48 hours. GENERAL: Awake, alert, NAD. HEENT: - Normocephalic and atraumatic; MMM, LUNGS - Clear to auscultation bilaterally with no wheezes CV - S1S2 RRR, equal pulses bilaterally. ABDOMEN - Soft, nontender, nondistended with normoactive BS NEURO: Mental Status: awake, alert, able to tell me his name, and knows he's in the hospitalization. identifies his daughter Language: speech is dysarthric, following commands Cranial Nerves: PERRL 3 mm/brisk. right gaze preference but crosses midline, does not blink to threat left hemifield, left facial droop Motor: 5/5 on R. (R BKA), 4/5 on left arm and leg Tone: is normal and bulk is normal Sensation- intact Coordination: unable to assess Gait- deferred Labs (Last four charted values) WBC 7.7 (FEB 03) 6.0 (FEB 01) 4.8 (JAN 31) 4.8 (JAN 30) Hgb L 10.4 (FEB 03) L 10.2 (FEB 01) L 9.1 (JAN 31) L 8.4 (JAN 30) Hct L 31.2 (FEB 03) L 31.5 (FEB 01) L 27.3 (JAN 31) L 25.1 (JAN 30) Plt 244 (FEB 03) 258 (FEB 01) 211 (JAN 31) 217 (JAN 30) Na L 134 (FEB 03) 137 (FEB 01) 136 (JAN 31) 137 (JAN 30) K 3.7 (FEB 03) L 3.4 (FEB 01) 3.7 (JAN 31) 3.5 (JAN 30) CO2 L 23 (FEB 03) 27 (FEB 01) L 22 (JAN 31) L 22 (JAN 30) Cl 101 (FEB 03) 102 (FEB 01) 103 (JAN 31) 105 (JAN 30) Cr H 2.95 (FEB 03) H 1.98 (FEB 01) H 2.01 (JAN 31) H 2.17 (JAN 30) BUN H 60 (FEB 03) H 43 (FEB 01) H 44 (JAN 31) H 43 (JAN 30) Glucose Random H 128 (FEB 03) H 135 (FEB 01) H 110 (JAN 31) 95 (JAN 30) Mg 1.8 (JAN 30) 1.9 (JAN 28) 2.1 (JAN 26) Phos 2.9 (JAN 30) 3.7 (JAN 28) H 4.7 (JAN 26) Ca 9.7 (FEB 03) H 10.8 (FEB 01) 10.2 (JAN 31) 9.9 (JAN 30) PT 14.3 (JAN 30) 14.6 (JAN 29) 14.5 (JAN 29) H 15.0 (JAN 29) INR 1.13 (JAN 30) 1.16 (JAN 29) 1.15 (JAN 29) H 1.20 (JAN 29) PTT 32.3 (JAN 30) H 68.2 (JAN 29) H 66.3 (JAN 29) H 56.1 (JAN 29) Troponin <0.02 (JAN 26) Stroke Work-Up: CTH 01/28/19: Evolving ischemic change in the right MCA territory with mild expected increased conspicuity of associated edema, however no significant infarct extension or hemorrhagic transformation. CTH 02/03/19: No hemorrhagic changes within the right MCA territory infarction. There may be slightly increased involvement of the right insula. MRI: Recent ischemic changes in the posterior right MCA territory without hemorrhagic transformation. Scattered chronic ischemic changes. TTE: 1) Left ventricular interenal dimensions are normal. 2) There is moderate concentric left ventricular hypertrophy. 3) Systolic function is normal with an overall estimated ejection fraction of 55 - 60%. 4) There is abnormal diastolic function. 5) Mitral annular calcification is present. 6) The left atrium is structurally normal. 7) There is marked sclerosis of the aortic valve with no significant stenosis. 8) There is no hemodynamic abnormality noted across the mitral or aortic valves. 9) Atherosclerotic changes are noted in the ascending aorta. 10) Right ventricular size, structure and function, tricuspid valve structure and function and right atrial structure are normal. 11) There is trace tricuspid regurgitation with suspected normal right sided pressures. 12) The pericardium is normal. 13) There is a moderate to large number of microcavitations in the left sided chambers by agitated saline contrast injection 14) Compared to a study dated 01/20/17 LDL 58 A1C <3.5 Assessment/Plan: 68 yo with [place], off Eliquis for 2 weeks, DVT with IVC filter, renal cell carcinoma s/p nephrectomy was in day surgery for IVC filter removal after which he developed right mCA syndrome with NIHSS 26, CT with hyperdense sign and ASPECTS around 9, CTA not done due to renal function, taken straight to IA suite which showed RM1 occlusion s/p suction with TICI 3. Started on heparin drip for DVT given small stroke size and high risk of recurrent stroke. Heparin drip held for hematuria Acute ischemic right middle cerebral artery (MCA) stroke(I63.511) Acuity: Acute Current Suspected Etiology: embolic -Blood pressure control, goal of SYS normalize <140 -Heparin gtt d/c'ed 01/29, now on eliquis Acute metabolic encephalopathy(G93.41) -multifactorial, anemia, CKD Afib(I48.91) Rate control- Metoprolol Eliquis Dysarthria Dysphagia following cerebral infarction -Advance diet as tolerated -adv chopped - dysphagia /thin (CC) CV Essential (primary) hypertension -Aggressive BP control, goal SBP normalize, TICI 3 flow -Titrate oral agents PFO+ Seen on TTE could be paradoxical embolism vs. atrial fibrillation given his age and that we can going to anticoagulate him for life irrespective, will not refer for closure Chronic atrial fibrillation rate control/eliquis HEME Possible Iron Deficiency Anemia vs. chronic disease -Monitor -Hematology consulted, appreciate recommendations -Folate, B12, Retic count, PBS, Bili, EPO level, Ferritin, Iron, TIBC levels ordered -hgb stable GI/ CKD Stage 4 (GFR 15-29) -Gentle hydration -avoid nephrotoxic agents -Renal consulted for recommendations, appreciate recommendations Renal cell cancer s/p nephrectomy -outpatient follow up Hematuria -D/C soto catheter 01/30 - monitor Urinary Retention - Q6H Bladder Scans, Requiring straight caths with each scan on 01/31 - Flomax 0.4 mg PO Daily - Finasteride 1mg PO Daily -> increased to 5 mg S/P IVC filter(Z95.828) -Removal on 01/26/19 Prophylaxis DVT:eliquis Disposition PT/OT recommending IPR- Referral sent to [facility] on 01/30 Follow-up: - [place] Stroke - Urology - Continue monitoring urine for clots but seems to be resolving with stabilized Hgb - F/u in [facility] Urology in 3 weeks with pre-clinic CT-Urogram (clinic #: [phone]) - Will schedule f/u Cysto when pt sees us in clinic - PCP for post hospitalization care Extracted from:Title: Urology consultation note Author: Benedict Louis MD Date: 01/28/19 Urology Consultation Note Consulting Physician: Winnie Solis MD. Attenging: Dr. Umaña Chief Complaint: New found Gross hematuria on Hep Gtt HPI: 68 yo male with PMH of RCC s/p nephrectomy in 2002 c/b CKD stage IV-V (baseline creatinine 2.5), atrial fibrillation complicated by prior stroke, and history of DVT (previously on eliquis - held for 2 weeks) with filter placement due to holding of AC following BKA for chronic osteomyelitis, who was admitted to the stroke unit following a right MCA stroke after IVC filter removal on 01/26/2019. Patient is s/p mechanical thrombectomy with noted improvement. he was placed on Heparin gtt after and noted to have gross hematuria in soto catheter. Patient is currently unable to provide prior urological hx. Vital stable with down trending HH from 8.4-7.1 today ROS: 12 point ROS negative other than noted in HPI Problems Active Chronicdiastolicheartfailure MRSA(08/01/2018) Hypercholesterolemia Benignessentialhypertension Chronicosteomyelitisoftheankleand/orfoot(05/28/2014) Gout(07/05/2014) Coffeegroundemesis Afib Acutemetabolicencephalopathy Resolved Osteomyelitis Gout Afib CHF(congestiveheartfailure) HTN(hypertension) DM(diabetesmellitus) Renalcarcinoma Amputation below-knee: 10/22/18 Insertion of PICC (peripherally inserted central catheter): 08/07/18 Vascular surgery procedure: 06/24/14 Colonoscopy: 2013 Debridement: 06/24/09 Nephrectomy: 11/22/02 Employment/School Details: Status: Retired. Alcohol Details: Never Exercise Comment(s): Pt works 3 times a week with him none Tobacco Details: Use: Former smoker. Type: Cigars. Tobacco smoke exposure: None. Did the Patient Smoke Cigarettes Anytime During the Last 365 Days? No. Cessation Counseling Provided? No. Substance Abuse Details: Use: None. Father: Gout.; Stroke (CVA); Type 1 diabetes mellitus Mother: High blood pressure; Kidney disease; Throat cancer. Objective: Vitals Tmp(F) Pulse BP RR SpO2 FIO2 01/28 09:00 ---- 73 176/85 24 99 --- 01/28 08:00 ---- 87 161/95 32 94 --- 01/28 07:00 97.5 62 171/83 39 100 --- 01/28 06:12 ---- 66 148/72 18 100 --- 07 05:04 ---- 68 133/68 18 100 --- 24 Hr Tmax: 98.9F (37.17c) at 01/27 16:00 Vital Signs are the last 5 in the past 48 hours. Physical Exam General: Alert and oriented, No acute distress. Eye: Extraocular movements are intact. HENT: Normocephalic. Respiratory: Lungs are clear to auscultation, Respirations are non-labored, Breath sounds are equal, Symmetrical chest wall expansion. Cardiovascular: Normal rate, Regular rhythm, No murmur, No edema, bilateral symmetrical radial pulses Gastrointestinal: Soft, Non-tender, Non-distended. : soto catheter in place with light pink urine draining within catheter tubing. No clot noted within collecting system Integumentary: Warm, Dry. Neurologic: Alert, Oriented, Psychiatric: Cooperative, Medications (21) Active Scheduled Meds (11): 01/28/19 NIFEdipine (NIFEdipine 90 mg oral tablet, extended release) 90 mg PO Daily 01/28/19 allopurinol 200 mg PO Daily 01/26/19 atorvastatin 20 mg GT Bedtime 01/27/19 docusate (Colace 100 mg oral capsule) 100 mg PO BID 01/27/19 lidocaine topical (lidocaine topical patch (5% film)) 2 patch TOP QPM 01/28/19 lisinopril 20 mg PO BID 01/28/19 remove patch 2 patch TOP Daily 01/27/19 senna 8.6 mg PO BID 01/26/19 sodium chloride (Saline Flush 0.9%) 10 ml IVP Q12H 01/28/19 tamsulosin 0.4 mg PO Daily 01/27/19 torsemide 20 mg PO BID Unscheduled Meds: None PRN Meds (4): 01/27/19 acetaminophen 650 mg ID Q6H 01/26/19 labetalol 10 mg IVP Q10Min 01/26/19 ondansetron 4 mg IVP Q8H 01/26/19 sodium chloride (Saline Flush 0.9%) 10 ml IVP PRN One Time Meds (2): 01/28/19 (Completed) acetaminophen 650 mg + empty container 1 ea (Tylenol 650 mg + empty container 1 ea) 650 mg IV ONCE 260 ml/hr 01/27/19 (Completed) methocarbamol + Sodium Chloride 0.9% IV 250 mL (Robaxin + Sodium Chloride 0.9% IV 250 mL) 500 mg IV ONCE 255 ml/hr Continuous Infusions (4): 01/28/19 Sodium Chloride 0.9% IV 250 mL (Sodium Chloride 0.9% (titrate) 250 mL) 250 mL To prime line and flush remaining blood products. 01/28/19 Sodium Chloride 0.9% IV 250 mL (Sodium Chloride 0.9% (titrate) 250 mL) 250 mL To prime line and flush remaining blood products. 01/28/19 (Suspended) heparin 25,000 unit [14 unit/kg/hr] + Premix Diluent Sodium Chloride 0.45% 500 mL (heparin additive 25,000 unit [14 unit/kg/hr] + Premix Diluent Sodium Chloride 0.45% 500 mL) 500 mL 26.6 ml/hr 01/26/19 niCARdipine 20 mg (Cardene 20 mg in NS 200 mL (Titrate.) IV 20 mg) 20 mg Titrate Hct: 21.6 % Low (01/28/19 03:46:00) Hgb: 7.1 g/dL Low (01/28/19 03:46:00) MCH: 28.6 pg (01/28/19 03:46:00) MCHC: 32.7 g/dL (01/28/19 03:46:00) MCV: 87.3 fL (01/28/19 03:46:00) MPV: 8 fL (01/28/19 03:46:00) Platelet: 219 K/CMM (01/28/19 03:46:00) RBC: 2.48 M/CMM Low (01/28/19 03:46:00) RDW: 22.4 % High (01/28/19 03:46:00) WBC: 4.3 K/CMM (01/28/19 03:46:00) Anisocyte: 1 + Abnormal (01/28/19 03:46:00) Basophils: 2.2 % High (01/28/19 03:46:00) Basophils #: 0.1 K/CMM (01/28/19 03:46:00) Eosinophils: 2.9 % (01/28/19 03:46:00) Eosinophils #: 0.1 K/CMM (01/28/19 03:46:00) Lymphocytes: 19 % Low (01/28/19 03:46:00) Lymphocytes #: 0.8 K/CMM Low (01/28/19 03:46:00) Microcyte: 1 + Abnormal (01/28/19 03:46:00) Monocytes: 7.1 % (01/28/19 03:46:00) Monocytes #: 0.3 K/CMM (01/28/19 03:46:00) Neutrophils #: 2.9 K/CMM (01/28/19 03:46:00) Plt Morph: Normal (01/26/19 13:34:00) Segs: 68.8 % (01/28/19 03:46:00) CO2: 20 mEq/L Low (01/28/19 03:46:00) Chloride Lvl: 116 mEq/L High (01/28/19 03:46:00) Sodium Lvl: 147 mEq/L High (01/28/19 03:46:00) Glucose Lvl: 89 mg/dL (01/28/19 03:46:00) Calcium Lvl: 8.4 mg/dL Low (01/28/19 03:46:00) Potassium Lvl: 3.5 mEq/L (01/28/19 03:46:00) BUN: 41 mg/dL High (01/28/19 03:46:00) AGAP: 14.5 mEq/L (01/28/19 03:46:00) Creatinine Lvl: 2.21 mg/dL High (01/28/19 03:46:00) Imaging Studies (last 36 hours) Brain wo contrast CT 01/28/2019 07:53 Impression: Evolving ischemic change in the right MCA territory with mild expected increased conspicuity of associated edema, however no significant infarct extension or hemorrhagic transformation. Brain wo contrast MRI 01/27/2019 06:57 Impression: Recent ischemic changes in the posterior right MCA territory without hemorrhagic transformation. Scattered chronic ischemic changes. Assessment/Plan: 68 yo male with PMH of RCC s/p nephrectomy in 2002 c/b CKD stage IV-V (baseline creatinine 2.5), atrial fibrillation complicated by prior stroke, and history of DVT with filter placement, recent IVC filter removal, found R MCA stroke, s/p mechanical thrombectomy on Heparin Gtt now. noted gross hematuria in soto catheter. Vital stable with down trending HH from 8.4-7.1 today Plan: - Continue soto catheter to drainage, DC soto per primary team, however, would recommend early DC with voiding trial per protocol to ensure emptying. - If develop bladder spasm, PRN Levxin SL for pain - Continue anticoagulation as needed, urine is actively draining with light pink in catheter. - Recommend PRN 60cc power flushing with NS directly into soto catheter tubing, then draw 30cc NS back to prevent clot build up if urine is turning deeper in color - Can start finasteride for prostatic bleeding - No concern for HH drop from Urinary source at this time. should continue to trend HH, if HH continue to drop, next step would be DC anticoagulation. - Nephrology consulted for CKD management, agree with plan - Hematology consulted for anemia work up, agree with plan - Other care per primary team Benedict Aguiar MD PGY-2 Urology Addendum by Yunior Umaña MD on 01/29/2019 10:09 The patient was seen and examined by me with the resident/FORESTRY PILOT/PA and I agree with the History/Exam documented. Extracted from:Title: Stroke HPI Author: Grace Edwards MD Date: 01/26/19 Impression and Plan Assessment: 68 yo with a. fib, off Eliquis for 2 weeks, DVT with IVC filter, renal cell carcinoma s/p nephrectomy was in day surgery for IVC filter removal after which he developed right mCA syndrome with NIHSS 26, CT with hyperdense sign and ASPECTS around 9, CTA not done due to renal function, taken straight to IA suite which showed RM1 occlusion s/p suction with TICI 3. Plan: Acute Ischemic Stroke Cerebral infarction due to embolism of right middle cerebral artery Acuity: Acute Current Suspected Etiology: embolic Continue Evaluation: -Admit to: stroke service -Continue Aspirin -Continue Statin -Blood pressure control, goal of SYS normalize 110-130 systolic -MRI/ECHO/A1C/Lipid panel. -Hyperglycemia management per SSI to maintain glucose 140-180mg/dL. -PT/OT/ST therapies and recommendations when able - Remains for high risk of recurrent stroke given known DVT, Atrial fibrillation, Will get STAT MRI brain to determine extent of infarction with plans to start heparin drip as soon as possible [employer]VIS[employer]ACH[employer] Dysarthria Dysphagia following cerebral infarction -NPO until cleared by speech -ST -Advance diet as tolerated Hemiplegia and hemiparesis following cerebral infarction affecting left non- dominant side -PT/OT RESP Intubated for procedure extubation per ICU CV Essential (primary) hypertension -Aggressive BP control, goal SBP normalize, TICI 3 flow -Titrate oral agents Chronic atrial fibrillation -Rate control -Continue BB -off Eliquis for 2 weeks, MRI to determine size of stroke, will need OAC soon HEME Iron Deficiency Anemia -Monitor -transfuse for hgb < 7 Hx of DVT with IVC filter removed on 01/26 Doppler US of legs GI/ CKD Stage 4 (GFR 15-29) -Gentle hydration -avoid nephrotoxic agents Renal cell cancer s/p nephrectomy outpatient follow up Prophylaxis DVT: SQH GI: PPI Bowel: docusate Diet: NPO until cleared by speech Code Status: Full Code THE FOLLOWING WERE PRESENT ON ADMISSION: [employer] - Acute Ischemic Stroke, Hemiplegia, Respiratory Probable Aspiration Pneumonia Cardiovascular - HTN, atrial fibrillation Renal - CKD-4, renal cell carcinoma Heme- hypercoagulable, DVT ACUTE STROKE BENCHMARKS: TIME PT LAST SEEN NORMAL 830 AM 01/26/19 EMS PRE-NOTIFICATION CODE STROKE ACTIVATION 1003 AM 01/26/19 ARRIVAL TIME in house TIME OF STROKE TEAM EVALUATION 1005 AM 01/26/19 CT HEAD READ TIME IV tPA bolus (time and dose) not done, as angio team was ready for EVT and he was not in the ER, no tPA in scanner on HVI, would have had to be taken to ER which would delay EVT IV tPA infusion (time and dose) If not a candidate for IV tPA, why? Delays in this process: (None) Last Seen Well Time (LSN): Time to be given by patient or family. Time the stroke was witnessed 830 AM 01/26/19 Stroke Team Notification Time: Time of Stroke Page 1003 AM 01/26/19 Door Time: Time of patients arrival in house stroke TPA Bolus Time: N/A see above TPA Infusion Time: Team at Bedside Time: 1005 AM 01/26/19 CT Time: Acquisition IA Notification Time: First time Stroke Team calledEndo Physician 1026 AM 01/26/19 CLOT Pager Notification Time: TimeEndo agreed to proceed 1030 AM 01/26/19 IR Suite Time: Time patient arrived to Angio Suite 1036 AM 01/26/19 Groin Puncture Time: 1054 01/26/19 Recanalization Time: 1121 AM 01/26/19 Number of Passes: 1 TICI Score: 3 Device Used: Trevo or Solitaire suction only Delays in Process: none Met Protocol Criteria: Yes/No. If no, why? yes Discussed with Dr. Edwards STROKE FACULTY: I have discussed the code stroke with the fellow over the phone. I saw and examined the patient post IAT. Decision was not to tPA given patient just had an IVC filter removal procedure and at same time he had an LVO and angio suite was ready to proceed. Decision was to proceed with IAT directly to avoid the higher risk of tPA post procedure. Clinical decision was that risk of tPA would outweigh benefit in presence of other treatment option. Plus, tPA would have caused treatment delay as patient had to be transferred to ED. Procedure was successful with TICI 3 and no complication. Exam improved post IAT but still aphasic. Patient has DVT and Afib, and we decided to obtain MRI stat post IAT and proceed with hep gtt if stroke size small. 02/05/2019 [facility] Extracted from:Title: Vascular Surgery Author: Nighat Nick NP Date: 11/06/18 Impression and Plan 1. 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 RLE Popliteal and distal SFV DVT PLAN: Case evaluated by Dr Harris and discussed with Dr Nikhil Miguel with concerns for poor stump healing and increased bleeding if OAC started on patient Will proceed with IVC Filter placement tomorrow Further recommendations post procedure Extracted from:Title: History and Physical Author: Elizabeth Nicole MD Date: 10/30/18 68 y/o M with uncontrolled DM type 2, on lantus 60 units daily with ISS w/meals, HTN, HLD, paroxysmal a.fib on apixaban, Rt LE DVT diagnosed 3 yrs ago, recurrent Rt leg osteomyelitis with lymphedema, Rtfoot charcot arthropathy,depression, CKD with hx of renal cell CA s/p Rt nephrectomy, chronic diastolic heart failure, BPH, bilateral varicose veins, with recent RLE osteomyelitis with MDROs, acute lacunar stroke 10/03, admitted for possible Rt BKA, pending ORS evaluation. 1.Acute osteomyelitis of right lower leg(M86.161) s/p I&D 3 weeks ago. ORS consulted. f/u recommendations. If non-op management recommended, will consult wound care for second opinion regarding wound care. c/w IV meropenem 500mg q12hrs and daptomycin 500mg q48hrs. f/u baseline CK. f/u CBC and check blood cultures x 2 Consult ID in AM. f/u CXR to evaluate if patient has PICC line vs mid-line. NWB RLE. c/w PT/OT PRN multimodal pain control Ordered: Admit/Condition, 10/30/18 3:30:00 CDT, Status: Inpatient, Acute, Expected LOS: 2 Midnights, Rao Caldera MD, Admit MD Review/Approve Yes, Isolation: No Isolation/Standard Precautions, Acute osteomyelitis of right lower leg 2.Paroxysmal atrial fibrillation(I48.0) Spontaneously rate controlled. c/w metoprolol 50mg q12hrs (holding parameters added for BP). Off apixaban due to active bleeding from leg wound. 3.Right leg DVT(I82.401) Off apixaban for a week at [place] due to active bleeding. Check a Rt leg venous doppler to evaluate for need for IVC filter if the patient is not a candidate for long-term anti-coagulation as was unprovoked. 4.Depression(F32.9) No SI/HI. c/w duloxetine 60mg daily. 5.CKD (chronic kidney disease), stage III(N18.3) 6.Hx of renal cell cancer s/p nephrectomy(Z85.528) Check BMP. Creatinine around 1.5 at baseline. Denies any LUTS. c/w tamsulosin 0.4mg daily. 7.Chronic diastolic heart failure(I50.32) Euvolemic with lymphedema and with varicose veins. c/w torsemide 20mg daily. 8.DM (diabetes mellitus), type 2(E11.9) Check HbA1c. c/w home dose of lantus 60 units daily with ISS w/meals. Diabetic diet. Complicated by peripheral neuropathy. 9.Hypertension(I10) c/w nifedipine 90mg daily, metoprolol 50mg q12hrs. 10.Hyperlipidemia(E78.5) c/w atorvastatin 20mg qhs. 11.Pre-op evaluation(Z01.818) It is unclear if patient will require surgery during this hospitalization. Per RCRI, he has one risk factor i.e. DM requiring insulin, and therefore at low perioperative cardiovascular risk, however needs further work-up given recent a.fib with RVR. Check EKG, CXR pre-op. f/u HbA1c and monitor glucose POC over the next 24 hrs to identify plan of care regarding glycemic management perioperatively, as no documentation from LTAC. c/w metoprolol perioperatively. Has poor functional capacity given osteomyelitis and NWB RLE for months. Had a stress test >10yrs ago - wnl, and cardiac cath 8 yrs ago - wnl, no primary trimming cutter. 12.Stroke(I63.9) Resume aspirin 81mg daily, c/w lipitor qhs. 13.Gout(M10.9) c/w allopurinol daily. Left leg sequential compression device. Hold off on DVT ppx given active bleeding reported from RLE wounds. Return to [facility] pending final recommendations by ORS regarding possible BKA during this hospitalization. 11/07/2018 [facility] Extracted from:Title: Team D Progress Note Author: Trish Lizama MD Date: 08/06/18 Mr. Bell is a 67yo M with PMH DM, CKD, past renal cell Ca s/p R nephrectomy, HTN, diastolic CHF and chronic bilat cellulitis s/p varicose vein sx Mar 2017 admitted for treatment of acute on chronic osteomyelitis vs abscessof RLE. s/p IR angiography with no acute intervention. MRI RLE with evidence of fluid collection. s/p ortho attempt at bedside I&D 07/31, failed. Went with IR musculoskeletal for drainage on 08/01/18 with culture which grew MRSA. Per ID recx, patient need home IV vancomycin for 6 weeks. Patient's insurance is unable to cover home IV abx. 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 After discussion with , patient is topay out of pocket for IV abx administration at home with homehealth. Pending Picc line placement and discharge home on homehealth Iv abx. 1.Acute on chronic osteomyelitis(M86.10) - Day6 of vanc. Need for 6 weeks IV vancomycin at home. -Cefepime and flaggyl discontinued as culture grew MRSA. - wound cx 08/01 with Staph - home health orders placed for IV abx outpatient - MRI RLE 07/30 with 1.3 x 2.0 x 6.5cm fluid collection in the medial R foot; sp drainage with IR on 08/01/18 - records [facility] to obtain more information about patient's prior hospital stays - pharmacy consult for dosing ofvancomycin -Patient's insurance is unable to cover home IV abx. 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 -I had a discussion with patient concerning possibility of having an amputation as a possibility. Patient is aware ofhigh risk of IV abx treatment failing as he failed IV abx before as well as Minocycline treatment. He would like to pursue home Vancomycin treatment this time and will consider amputation as the last resort. -Patient agrees to pay out of pocket for Iv abx at home. -Pending PICC line placement 2.Peripheral vascular disease(I73.9) -No evidence of PVD - RLE arterial doppler indicative of significant inflow disease -s/p IR angiography 07/30 with no indication for intervention - continue rosuvasatin 3.Right leg DVT(I82.401) -RLE venous doppler showing nonocclusive thrombus of R popliteal vein - normal flow in LLE - continue eliquis 5mg BID 4.Acute on chronic renal failure(N17.9) -Cr at 1.54 from 1.34 still at baseline. -Vancomycin through . -Continue vancomycin dosing accordingly. - continue to hold home diuretics 5.Carcinoma, renal cell(C64.9) 6.H/O unilateral nephrectomy(Z90.5) 7.Chronic diastolic heart failure(I50.32) - last TTE in chart from December 2016 showing EF 55-60% 8.Hypertension(I10) -Weaning off Clonidine. Clonidine discontinued. -on Nifedipine 90mg daily and Lisinopril 40 daily. 9.Diabetes mellitus type 2 with complications, uncontrolled(E11.8) - brittle diabetes with hypoglycemia on admission - continue high dose SSI 10.Hypoglycemia(E16.2) 11.Chronic pain syndrome(G89.4) - continue home lyrica - continue home norco 10/325mg Q8hr 12.Anemia of chronic renal failure(N18.9) 13.Paroxysmal atrial fibrillation(I48.0) - currently rate controlled on 25mg coreg BID - will not restart amiodarone during this hospitalization - continue eliquis 5mg BID 14.BPH without urinary obstruction(N40.0) - continue daily tamsulosin 0.4mg 15.Hyperlipidemia(E78.5) - continue rosuvastatin 5mg PO daily Prophylaxis continue apixaban 5mg PO BID Disposition pending Picc line placement. Discharge home with homehealth IV abx. Patient discussed on rounds with Medicine attending Dr. Trell Lizama MD [facility] PGY1 [id number]. Pager: [phone]. MSO# [id number] Addendum by Lore Cai MD on 08/06/2018 17:19 ANIMAL NUTRITION CONSULTANT Attending Attestation: I personally interviewed and examined this patient with the resident team. I agree with the aforementioned history, exam, data findings, and assessment/plan with the following additions: Brief hospital course: 67 yo w pmh dm, ckd, rcc s/p r nephrectomy, htn, diastolic hf and b/l cellulitis afterprior varicose vein sx 03/2017 p/w RLE edema and painful. MRI foot notable for septic arthritis and foot abscess in the setting of chronic osteomyelitis. s/p I&D 08/01. cx growing mrsa. labs and imaging reviewed Assessment/plan: R foot charcot arthropathy -- f/u Dr. Vieira (Orthopedic surgery) as OP. Septic arthritis R Foot abscess R foot chronic osteomyelitis. GRACY RLE DVT HTN DM2 Atrial fibrillation anemia of chronic disease BPH cont vancomycin. appreciate ID recs.contapixaban. renally dose meds.cont nifedipine, lisinopril and coreg. home health pending. PICC line to be placed today. Extracted from:Title: History and Physical Author: Kat Urias MD Date: 07/29/18 Mr. Bell is a 67yo M with PMH DM, CKD, past renal cell Ca s/p R nephrectomy, HTN, diastolic CHF and chronic bilat cellulitis s/p varicose vein sx Mar 2017 admitted for treatment of acute on chronic osteomyelitis of RLE. Carcinoma, renal cell(C64.9) - in remission - s/p R nephrectomy 2002 Chronic diastolic heart failure of unknown etiology.(I50.32) - last TTE in chart from December 2016 showing EF 55-60% - continue home metolazone, coreg, lisinopril, clonidineand torsemide Chronic hypertension(I10) Ordered: lisinopril, 40 mg, 2 tab, Route: PO, Drug form: TAB, Daily, Dosing Weight 118.182, kg, Start date: 07/29/18 9:00:00 ANIMAL NUTRITION CONSULTANT, Duration: 30 day, Stop date: 08/27/18 9:00:00 ANIMAL NUTRITION CONSULTANT Chronic pain syndrome(G89.4) Ordered: Lyrica, 25 mg, 1 cap, Route: PO, Drug form: CAP, Daily, Dosing Weight 118.182, kg, Start date: 07/29/18 9:00:00 ANIMAL NUTRITION CONSULTANT, Duration: 30 day, Stop date: 08/27/18 9:00:00 ANIMAL NUTRITION CONSULTANT tramadol 50 mg oral tablet, 50 mg, 1 tab, Route: PO, Drug form: TAB, BID, Dosing Weight 118.182, kg, PRN Pain Score 1-5, Start date: 07/28/18 21:47:00 ANIMAL NUTRITION CONSULTANT, Duration: 30 day, Stop date: 08/27/18 21:46:00 ANIMAL NUTRITION CONSULTANT CKD (chronic kidney disease) stage 3, GFR 30-59 ml/min(N18.3) - current creatinine 2.34 Hypoglycemia(E16.2) - glucose 57 on admission, currently 80 - patient on high dose SSI - home regimen of glargine 80u and lispro 25u ac held for now Osteomyelitis(M86.9) - s/p cefepime and vanc in ED - holdingabx for now untilbx can be obtained as patient is HDS and afebrile and this is a chronic problem - IR consult for RLE bone bx - NPO after midnight - Ortho consulted for assessment of acute on chronic osteomyelitis and concern for compartment syndrome - bilat LE venous and arterial dopplers ordered Type 2 diabetes, HbA1c goal < 7%(E11.9) - high dose SSI, holding home insulin for now Past hx DVT - continue home apixaban 5mg BID - bilateral venous dopplers pending home apixaban appropriate for floor TEACHING ATTENDING ATTESTATION STATEMENT: I have seen and examined this patient and discussed the findings on this patient in detail with the team on teaching rounds. I have reviewed the note above and I agree with the findings and plan of care outlined Concern for osteomyelitis or skin soft tissue infectionholding on antibiotics given the patient not septic we will continue to follow work up 08/07/2018 [facility] Extracted from:Title: History and Physical Author: Kobe Trujillo MD Date: 04/10/17 Assessment/Plan patient with new episode of RLE DVT 1.Acute deep vein thrombosis (DVT) of right lower extremity patient with swelling and pain and change of color of RLE. In Dupplex there is a now clot in RLE. patient with high risk of VTE but in the l;ast admission he refused anticoaugulation. Nowhe is agree withanticoaugulation plan Eliquis 10 mgbid x 7 days, then 5 mg bid Ordered: Admit/Condition, 04/10/17 20:08:00 CDT, Status: Out Patient with Observation Services, Acute, Expected LOS: 2 Midnights, Saeid Antoine DO, Naa NICHOLSON Review/Approve Yes, Isolation: No Isolation/Standard Precautions 2.Diabetes mellitus with nephropathy patient with DM and nephropathy SSI POCT Lantus 3.Benign essential hypertension resume home medication pain management 4.Chronic diastolic heart failure resume home medication Prophylaxis Eliquis Disposition Home 04/11/2017 [facility] Extracted from:Title: Infection Admission H&P * Author: Brenton Wilcox MD Date: 01/31/17 Impression and Plan . Cellulitis B/L LE ? Osteomyelitis MRI no evidence of osteomyelitis ID PLAN Continue antibiotic vancomycin PICC line placed Duration of therapy for 4 weeks,monitor weekly CBC,sed.rate,Vanco trough Appt in the office in 2 weeks Extracted from:Title: Infection Control Isolation Alert Author: Trisha Egan Date: 01/25/17 ISOLATION ALERT This patient is actively infected/colonized with a multi-drug resistant organism. Organism Site Date MRSA Blood 01/19/2017 Isolation Required: CONTACT Before isolation precautions may be discontinued, the following protocol must be followed and Infection Control should be notified: Organism Status Cultures Sites MRSA Off abx x 72hrs or 7 days if on dialysis and vancomycin x 2, 48 hrs apart Anterior nares, wounds, and any previous positive sites VRE Off abx x 72hrs or 7 days if on dialysis and renally-cleared drug active against patient's isolate x 2, 48 hrs apart Stool and any previous positive sites PCN-R or PCN-Intermediate Streptococcus pneumoniae 48 hrs of effective antibiotic and resolution of clinical S/S of pulmonary involvement Multi-drug Resistant Gram Negative Bacteria (Defined as resistant to at least 1 drug in 3 of the 5 drug classes below) a. Cefepime or ceftazidime b. Pip/tazo or ticar/clav c. Gentamicin, amikacin or tobramycin d. Meropenem e. Ciprofloxacin or moxifloxacin Off abx x 72hrs or 7 days if on dialysis and aminoglycoside x2, 48 hrs apart Urine, stool, throat, and any previous positive sites Stenotrophomonas R to Trimethoprim-Sulfa Methoxazole (T/S) Off abx x 72hrs or 7 days if on dialysis and aminoglycoside x2, 48h apart Urine, stool, throat, and any previous positive sites 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 R to minocycline, rifampin, or vancomycin Off abx x 72hrs or 7 days if on dialysis and vancomycin x2, 48h apart Urine, stool, throat, and any previous positive sites Gram negative enterics: Salmonella, Shigella, etc. Off abx x 48 hrs x2, 48h apart Stool TB: Pulmonary or Laryngeal TB is judged clinically unlikely. Patient is improving on effective therapy. There is another diagnosis that explains the clinical syndrome, or they meet criteria. 3 negative sputum smears for AFB. Each sputum specimen should be collected 8-24 hours apart and at least one should be an viscose cellar charge hand specimen Sputum Varicella Maintain precautions until all lesions are crusted. Place susceptible patients on precautions beginning day 8 after exposure to day 21 after last exposure or day 28 for patients who have received VZIG. Rubeola (Measles) Maintain precautions for duration of illness. Place susceptible patients on precautions beginning day 5 after exposure to day 21 after last exposure. C. difficile colitis Maintain precautions for duration of diarrhea IT IS NOT NECESSARY TO CULTURE STERILE SITES (BLOOD, CSF, HEALED WOUNDS) WHEN TRYING TO DISCONTINUE ISOLATION. Consult Infection Control for suggested regimens for decolonization of patients with MRSA as well as for any questions. We can be reached at [phone]. Extracted from:Title: History and Physical Author: Elizabeth Nicole MD Date: 01/19/17 Assessment/Plan 1.Sepsis - UA negative, with no e/o PNA on CXR. 2/2 RLE cellulitis / osteomyelitis - blood cultures sent to the lab. - c/w vancomycin and cefepime. Dose medications renally. Pharmacy assistance requested. Check vancomycin level in AM as given 2gm in the ED - Hold off checking MRI with contrast as patient with GRACY on CKD, with GFR<30 - keep RLE elevated - multimodal pain control - f/u formal RLE ultrasound to evaluation extent of thrombosis. If extensive, may need thrombolysis - start heparin drip for now as bedside u/s concerning for DVT in the ED - EGS consulted for necrotizing fascitis, recommend conservative management - admit to SIMU - hold off further IV fluids as patient hypoxic, now saturating 92% on 2L NC, after 3750cc LR. - a/w hyponatremia 2/2 sepsis 2.Cellulitis - xray concerning for osteomyelitis - hold off MRI due to inability to give contrast due to GFR<30 - c/w vancomycin and cefepime - PICC line once creatinine trend established, as patient has CKD stage 4 as well - EGS following for possible necrotizing fascitis Ordered: 3.Acute tubular necrosis - ATN 2/2 sepsis, manifesting as GRACY on CKD - Baseline creatinine ~2.09 - metolazone discontinued outpatient - received 3750cc LR in the ED - hold furosemide, torsemide as well - strict I/O - avoid nephrotoxic agents - hold any further IV fluids at present - check renal ultrasound 4.Diabetes mellitus type 2 with complications - check HbA1c in AM - complicated by peripheral neuropathy and nephropathy with CKD - Resume lantus 80 units qdaily, with humalog 30 units w/meals - Insulin aspart sliding scale w/meals and qhs - hypoglycemia protocol ordered - diabetic diet 5.Congestive heart failure - Check ECHO -hold furosemidein view of Gracy - received fluids in the ED - c/w coreg 25mg qdaily - no hx of WI. On aspirin 325mg daily Ordered: 6.Benign essential hypertension - no active issues - resume coreg 25mg daily, clonidine 0.1mg tid with holding parameters - low sodium diet Ordered: 7.Gout - no e/o flare -adjust dose renally. Decrease allopurinol to 100mg daily for now. Ordered: 8.H/O renal cell cancer - s/prt nephrectomy in 2002 - no hx of chemotherapy or radiation - baseline creatinine ~2.09 - strict I/O - management josé miguel toATN - f/u renal ultrasound Ordered: 9.Chronic osteomyelitis of the ankle and/or foot - chronic osteomyelitis of the left foot in 2009 - no active issues Ordered: 10.Asthma - on oxygen at present, but now wheezing - former smoker, likely COPD - not on home oxygen - CXR showing no pulmonary edema or PNA - incentive spirometry 11.Acute pain - resume lyrica 75mg q12hrs - adjust dose renally - norco prn with tramadol - prn bowel regimen 12.Hyperlipidemia - c/w crestor 20mg qhs 13.Depressive disorder - no SI/HI - c/w duloxzetine 60mg daily 14.Obesity - counselled on lifestyle modification 15.Goals of care, counseling/discussion - HCP - - Ms. Dorcas Bell - Full code 16.Hyponatremia - 2/2 sepsis - s/p IV fluids in the ED - repeat BMP in AM 17.Hypokalemia -repeat BMP in AM - received LR in the ED - [id number] PO KCL now. 18. Anemia - no e/o acute blood loss - likely 2/2 CKD 19. GERD - asymptomatic Prophylaxis on heparin drip Disposition Pending stabilization; PT/OT requested. Likely will be able to go home when ready. Addendum by Elizabeth Nicole MD on 01/19/2017 17:02 CDT Abx regimen- Vancomycin, cefepime and metronidazole 01/31/2017 [facility] Plan of Care No Data Provided for This Section Social History Social History Date Source Social History TypeResponse Alcohol Never Employment/School Status: Retired. Exercise 1, 2 Substance Abuse Use: None. Smoking Status Former smoker; Type: Cigars; Exposure to Tobacco Smoke None; Cigarette Smoking Last 365 Days No; Reg Smoking Cessation Counseling No entered on: 01/26/19 1Pt works 3 times a week with [id number] 01/26/2019 [facility] Social History TypeResponse Substance Abuse Use: None. Exercise 1, 2 Employment/School Status: Retired. Alcohol Never Smoking Status Former smoker; Type: Cigars; Exposure to Tobacco Smoke None; Cigarette Smoking Last 365 Days No; Reg Smoking Cessation Counseling No entered on: 01/26/19 1Pt works 3 times a week with [id number] 10/30/2018 [facility] Social History TypeResponse Substance Abuse Use: None. Alcohol Never Smoking Status Former smoker; Type: Cigars; Exposure to Tobacco Smoke None; Cigarette Smoking Last 365 Days No; Reg Smoking Cessation Counseling No 01/03/2015 JESSE Salmeron Social History TypeResponse Substance Abuse Use: None. Alcohol Never Smoking Status Former smoker; Type: Cigars; Exposure to Tobacco Smoke None; Cigarette Smoking Last 365 Days No; Reg Smoking Cessation Counseling No 01/03/2015 JESSE Guerrier Family History No Data Provided for This Section Advance Directives No Data Provided for This Section Functional Status No Data Provided for This Section
--- OUTSIDE RECORDS SUMMARY | 2019-02-22 08:10 | XMS REPORT | Summary of Care ---
Author Author [facility] Primary Care [facility] [place] Organization [facility] Primary Care [facility] [place] Address Unknown Phone Unavailable Care Team Providers Care Senior Mobile Application Developer Name Role Phone Rosendo Sylvester PCP Encounter HQ Encntr_barbra(FIN) [id number] Date(s): 04/01/18 - 04/01/18 [facility] Primary Care [facility] [address] [place] [address]- Attending Physician: Nic Paz MD Vital Signs No data available for this section Problem List Condition Effective Dates Status Health Status Informant Afib(Confirmed) Active Afib(Confirmed) Resolved Benign essential Active hypertension(Confirm ed)1 Chronic diastolic Active heart failure(Confirmed) Chronic 05/28/14 Active osteomyelitis of the ankle and/or foot(Confirmed)2 CHF (congestive Resolved heart failure)(Confirmed) DM (diabetes Resolved mellitus)(Confirmed) Gout(Confirmed)3 07/05/14 Active Gout(Confirmed) Resolved Hypercholesterolemia Active (Confirmed) HTN Resolved (hypertension)(Confi rmed) Acute metabolic Active encephalopathy(Confi rmed) MRSA(Confirmed)4, 5, 08/01/18 Active 6 Osteomyelitis(Confir Resolved med) Renal Resolved carcinoma(Confirmed) Coffee ground Active emesis(Confirmed) 1Data migrated from [employer] on 11/20/14. 2Data migrated from [employer] on 11/20/14. 3Data migrated from [employer] on 11/20/14. 4RLE Joint Aspirate - 08/01/2018 5Blood, 01/19/2017 6Problem added by Discern Expert. Allergies, Adverse Reactions, Alerts Substance Reaction Severity Status clindamycin Active hydrALAZINE1 Active 1Data migrated from [employer] on 10/22/14. Originally documented as HYDRALAZINE HCL. dyspnea Medications No data available for this section Results No data available for this section Immunizations Given and Recorded Vaccine Date Status Refusal Reason influenza virus vaccine, inactivated 04/08/18 Recorded pneumococcal 13-valent vaccine 04/11/17 Given Hx influenza vaccine-unspecified1 04/26/14 Given 1Result Comment: done. Migrated from [facility] ; Data migrated from [employer] on 07/26/2015. Procedures Procedure Date Related Diagnosis Body Site Status Insertion of PICC (peripherally inserted 08/07/18 Completed central catheter) Colonoscopy 2013 Completed Nephrectomy 11/22/02 Completed Social History Social History Type Response Substance Abuse Use: None. Alcohol Never Smoking Status Former smoker; Type: Cigars; Exposure to Tobacco Smoke None; Cigarette Smoking Last 365 Days No; Reg Smoking Cessation Counseling No entered on: 09/08/18 Assessment and Plan No data available for this section
--- OUTSIDE RECORDS SUMMARY | 2019-02-22 08:10 | XMS REPORT | Summary of Care ---
Author Author [facility] Organization [facility] Address Unknown Phone Unavailable Encounter RAFIA Valiente(CORINNA) [id number] Date(s): 04/10/17 - 04/11/17 [facility] [address] [employer] provided by [facility] [employer] [facility] [employer] [facility] [place] [address]- Discharge Disposition: Home or Self Care Attending Physician: Saeid Antoine DO Admitting Physician: Saeid Antoine DO Vital Signs 1 2 3 Most recent to oldest [Reference Range]: 198.12 cm (04/10/17 9:23 PM) 198.12 cm (04/10/17 2:23 PM) Height 96.0 DegF *LOW* (04/11/17 4:10 PM) 96.8 DegF (04/11/17 12:06 PM) 96.0 DegF *LOW* (04/11/17 7:24 AM) Temperature Oral [96.4-99.1 DegF] 130/72 mmHg (04/11/17 4:10 PM) 132/70 mmHg (04/11/17 12:06 PM) 161/87 mmHg *HI* (04/11/17 7:24 AM) Blood Pressure [90-140/60-90 mmHg] 16 BRMIN (04/11/17 4:10 PM) 16 BRMIN (04/11/17 12:06 PM) 18 BRMIN (04/11/17 7:24 AM) Respiratory Rate [14-20 BRMIN] 53 bpm *LOW* (04/11/17 4:10 PM) 56 bpm *LOW* (04/11/17 12:06 PM) 78 bpm (04/11/17 7:24 AM) Peripheral Pulse Rate [60-100 bpm] 118.182 kg (04/10/17 9:23 PM) 118.182 kg (04/10/17 2:23 PM) Weight 30.11 m2 (04/10/17 9:23 PM) 30.11 m2 (04/10/17 2:23 PM) Body Mass Index Problem List Condition Effective Dates Status Health Status Informant Afib(Confirmed) Active Afib(Confirmed) Resolved Benign essential Active hypertension(Confirm ed)1 Chronic diastolic Active heart failure(Confirmed) 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 2Data migrated from [employer] on 11/20/14. 3Data migrated from [employer] on 11/20/14. 4Blood, 01/19/2017 5Problem added by Discern Expert. Allergies, Adverse Reactions, Alerts Substance Reaction Severity Status clindamycin Active hydrALAZINE1 Active 1Data migrated from [employer] on 10/22/14. Originally documented as HYDRALAZINE HCL. dyspnea Medications acetaminophen-hydrocodone 325 mg-5 mg oral tablet 1 tab, Route: PO, Drug Form: TAB, Dosing Weight 118.182, kg, Q4H, PRN Pain Score 4-6, Start date: 04/10/17 20:08:00 CDT, Duration: 30 day, Stop date: 05/10/17 2 0:07:00 CUSTOMS MANAGER Notes: (Same as: Hanahan 325/5) Do not exceed 4gm/day of acetaminophen. Start Date: 04/10/17 Stop Date: 04/11/17 Status: Discontinued allopurinol 300 mg oral tablet 300 mg=1 tab, PO, Daily, # 30 tab, 0 Refill(s) Start Date: 04/11/17 Status: Ordered AMIODarone 400 mg, 2 tab, Route: PO, Drug form: TAB, BID, Dosing Weight 118.182, kg, Start date: 04/11/17 9:00:00 CDT, Duration: 30 day, Stop date: 05/10/17 17:00:00 CUSTOMS MANAGER Notes: (Same as: Cordarone) Start Date: 04/11/17 Stop Date: 04/11/17 Status: Discontinued amLODIPine 5 mg, 1 tab, Route: PO, Drug form: TAB, Daily, Dosing Weight 118.182, kg, Start date: 04/11/17 9:00:00 CDT, Duration: 30 day, Stop date: 05/10/17 9:00:00 CUSTOMS MANAGER Notes: (Same as: Norvasc) Start Date: 04/11/17 Stop Date: 04/11/17 Status: Discontinued apixaban 5 mg oral tablet 10 mg=2 tab, PO, Q12H, # 28 tab, 0 Refill(s), Pharmacy: [facility] Start Date: 04/11/17 Stop Date: 04/18/17 Status: Ordered apixaban 5 mg oral tablet 5 mg=1 tab, PO, BID, 10 mg PO BID for 7 days THEN DECREASE TO 5MG BID, # 60 ta b, 0 Refill(s), Pharmacy: [facility] Start Date: 04/11/17 Stop Date: 05/11/17 Status: Ordered aspirin 325 mg tablet, enteric coated 325 mg, 1 tab, Route: PO, Drug form: ECTAB, Daily, Dosing Weight 118.182, kg, St art date: 04/11/17 9:00:00 CDT, Duration: 30 day, Stop date: 05/10/17 9:00:00 CS T Notes: (Do Not Crush) Do not crush or chew. Start Date: 04/11/17 Stop Date: 04/11/17 Status: Discontinued cholecalciferol 2000 intl units oral tablet 2,000 IntlUnit, 1 tab, Route: PO, Drug form: TAB, Daily, Dosing Weight 118.182, kg, Start date: 04/11/17 9:00:00 CDT, Duration: 30 day, Stop date: 05/10/17 9:00 :00 CUSTOMS MANAGER Notes: (Same as: Vitamin D3) Start Date: 04/11/17 Stop Date: 04/11/17 Status: Discontinued cloNIDine 0.1 mg oral tablet 0.1 mg=1 tab, PO, TID, 0 Refill(s) Start Date: 04/11/17 Status: Ordered Coreg 25 mg oral tablet 25 mg=1 tab, PO, Daily, 0 Refill(s) Start Date: 04/11/17 Status: Ordered cyanocobalamin 2,000 microgram, 2 tab, Route: PO, Drug form: TAB, Daily, Dosing Weight 118.182, kg, Start date: 04/11/17 9:00:00 CDT, Duration: 30 day, Stop date: 05/10/17 9:0 0:00 CUSTOMS MANAGER Notes: (Same As: Vitamin B-12) Start Date: 04/11/17 Stop Date: 04/11/17 Status: Discontinued Dextrose 50% Syringe 25 gm, 50 mL, Route: IVP, Drug Form: INJ, Dosing Weight 118.182, kg, PRN, PRN Bl ood Glucose Results, Start date: 04/11/17 5:46:00 CDT, Duration: 30 day, Stop da te: 05/11/17 4:45:00 CUSTOMS MANAGER Start Date: 04/11/17 Stop Date: 04/11/17 Status: Discontinued Dextrose 50% Syringe 12.5 gm, 25 mL, Route: IVP, Drug Form: INJ, Dosing Weight 118.182, kg, PRN, PRN Blood Glucose Results, Start date: 04/11/17 5:46:00 CDT, Duration: 30 day, Stop date: 05/11/17 4:45:00 CUSTOMS MANAGER Start Date: 04/11/17 Stop Date: 04/11/17 Status: Discontinued docusate 100 mg, 1 cap, Route: PO, Drug form: CAP, BID, Dosing Weight 118.182, kg, Start date: 04/11/17 9:00:00 CDT, Duration: 30 day, Stop date: 05/10/17 17:00:00 CUSTOMS MANAGER Notes: (Same as: Colace) (Do Not Crush) Start Date: 04/11/17 Stop Date: 04/11/17 Status: Discontinued doxazosin 4 mg, Route: PO, Drug form: TAB, Daily, Dosing Weight 118.182, kg, Start date: 1 9:00:00 CDT, Duration: 30 day, Stop date: 05/10/17 9:00:00 CUSTOMS MANAGER Start Date: 04/11/17 Stop Date: 04/10/17 Status: Deleted DULoxetine 60 mg, 1 cap, Route: PO, Drug form: DRC, Daily, Dosing Weight 118.182, kg, Start date: 04/11/17 9:00:00 CDT, Duration: 30 day, Stop date: 05/10/17 9:00:00 CUSTOMS MANAGER Notes: (Same as: Cymbalta) (Do Not Crush) Start Date: 04/11/17 Stop Date: 04/11/17 Status: Discontinued Eliquis 10 mg, 2 tab, Route: PO, Drug form: TAB, Q12H, Dosing Weight 118.182, kg, Start date: 04/10/17 21:00:00 CDT, Duration: 30 day, Stop date: 05/10/17 9:00:00 CUSTOMS MANAGER Notes: Same as: Eliquis Start Date: 04/10/17 Stop Date: 04/11/17 Status: Discontinued glucagon 1 mg, Route: IM, Drug form: PDR/INJ, PRN, Dosing Weight 118.182, kg, PRN Blood G lucose Results, Start date: 04/11/17 5:46:00 CDT, Duration: 30 day, Stop date: 07/11/16 4:45:00 CUSTOMS MANAGER Start Date: 04/11/17 Stop Date: 04/11/17 Status: Discontinued Humalog 15 unit, 0.15 mL, Route: SUB-Q, Drug form: SOLN, TID-Before Meals, Start date: 7:30:00 CDT, Duration: 30 day, Stop date: 05/10/17 16:30:00 CUSTOMS MANAGER Notes: (Same as: Humalog ) Roll in palms of hands gently; Do not shake `vigorou sly. "Single Patient Use Only " (Restricted to patients requiring a dose > 60 units)WASTE: F/P - Black; E - Municipal Trash Bin Stable for 28 days at room temperature.Expires in days from Date Start Date: 04/11/17 Stop Date: 04/11/17 Status: Discontinued Humalog SUB-Q, 0 Refill(s) Start Date: 04/11/17 Stop Date: 04/11/17 Status: Discontinued Hytrin 5 mg, 1 cap, Route: PO, Drug form: CAP, Daily, Start date: 04/11/17 9:00:00 CDT, Duration: 30 day, Stop date: 05/10/17 9:00:00 CUSTOMS MANAGER Notes: (Same As: Hytrin) Start Date: 04/11/17 Stop Date: 04/11/17 Status: Discontinued insulin aspart 15 unit, Route: SUB-Q, Drug form: SOLN, TID-Before Meals, Dosing Weight 118.182, kg, Start date: 04/11/17 7:30:00 CDT, Duration: 30 day, Stop date: 05/10/17 16: 30:00 CUSTOMS MANAGER Start Date: 04/11/17 Stop Date: 04/10/17 Status: Deleted insulin lispro 5 unit, 0.05 mL, Route: SUB-Q, Drug form: SOLN, TID-Before Meals, Dosing Weight 118.182, kg, PRN Blood Glucose Results, Start date: 04/11/17 5:46:00 CDT, Durati on: 30 day, Stop date: 05/11/17 5:45:00 CUSTOMS MANAGER Notes: (Same as: Humalog ) Roll in palms of hands gently; Do not shake `vigorou sly. "Single Patient Use Only " (Restricted to patients requiring a dose > 60 units)WASTE: F/P - Black; E - Municipal Trash Bin Stable for 28 days at room temperature.Expires in days from Date Start Date: 04/11/17 Stop Date: 04/11/17 Status: Discontinued insulin lispro 4 unit, 0.04 mL, Route: SUB-Q, Drug form: SOLN, TID-Before Meals, Dosing Weight 118.182, kg, PRN Blood Glucose Results, Start date: 04/11/17 5:46:00 CDT, Durati on: 30 day, Stop date: 05/11/17 5:45:00 CUSTOMS MANAGER Notes: (Same as: Humalog ) Roll in palms of hands gently; Do not shake `vigorou sly. "Single Patient Use Only " (Restricted to patients requiring a dose > 60 units)WASTE: F/P - Black; E - Municipal Trash Bin Stable for 28 days at room temperature.Expires in days from Date Start Date: 04/11/17 Stop Date: 04/11/17 Status: Discontinued insulin lispro 3 unit, 0.03 mL, Route: SUB-Q, Drug form: SOLN, TID-Before Meals, Dosing Weight 118.182, kg, PRN Blood Glucose Results, Start date: 04/11/17 5:46:00 CDT, Durati on: 30 day, Stop date: 05/11/17 5:45:00 CUSTOMS MANAGER Notes: (Same as: Humalog ) Roll in palms of hands gently; Do not shake `vigorou sly. "Single Patient Use Only " (Restricted to patients requiring a dose > 60 units)WASTE: F/P - Black; E - Municipal Trash Bin Stable for 28 days at room temperature.Expires in days from Date Start Date: 04/11/17 Stop Date: 04/11/17 Status: Discontinued insulin lispro 2 unit, 0.02 mL, Route: SUB-Q, Drug form: SOLN, TID-Before Meals, Dosing Weight 118.182, kg, PRN Blood Glucose Results, Start date: 04/11/17 5:46:00 CDT, Durati on: 30 day, Stop date: 05/11/17 5:45:00 CUSTOMS MANAGER Notes: (Same as: Humalog ) Roll in palms of hands gently; Do not shake `vigorou sly. "Single Patient Use Only " (Restricted to patients requiring a dose > 60 units)WASTE: F/P - Black; E - Municipal Trash Bin Stable for 28 days at room temperature.Expires in days from Date Start Date: 04/11/17 Stop Date: 04/11/17 Status: Discontinued insulin lispro 1 unit, 0.01 mL, Route: SUB-Q, Drug form: SOLN, TID-Before Meals, Dosing Weight 118.182, kg, PRN Blood Glucose Results, Start date: 04/11/17 5:46:00 CDT, Durati on: 30 day, Stop date: 05/11/17 5:45:00 CUSTOMS MANAGER Notes: (Same as: Humalog ) Roll in palms of hands gently; Do not shake `vigorou sly. "Single Patient Use Only " (Restricted to patients requiring a dose > 60 units)WASTE: F/P - Black; E - Municipal Trash Bin Stable for 28 days at room temperature.Expires in days from Date Start Date: 04/11/17 Stop Date: 04/11/17 Status: Discontinued Lyrica 25 mg, 1 cap, Route: PO, Drug form: CAP, Daily, Dosing Weight 118.182, kg, Start date: 04/11/17 9:00:00 CDT, Duration: 30 day, Stop date: 05/10/17 9:00:00 CUSTOMS MANAGER Notes: (Same as: Lyrica) Start Date: 04/11/17 Stop Date: 04/11/17 Status: Discontinued metolazone 5 mg oral tablet 5 mg=1 tab, PO, Daily, # 30 tab, 0 Refill(s) Start Date: 04/11/17 Status: Ordered metolazone 5 mg oral tablet 5 mg, 1 tab, Route: PO, Drug form: TAB, Daily, Dosing Weight 118.182, kg, Start date: 04/11/17 9:00:00 CDT, Duration: 30 day, Stop date: 05/10/17 9:00:00 CUSTOMS MANAGER Notes: (Same as: Zaroxolyn) Start Date: 04/11/17 Stop Date: 04/11/17 Status: Discontinued metoprolol tartrate 50 mg, 1 tab, Route: PO, Drug form: TAB, Q6H, Dosing Weight 118.182, kg, Start d ate: 04/10/17 22:30:00 CDT, Duration: 30 day, Stop date: 05/10/17 22:30:00 CUSTOMS MANAGER Notes: (Same as: Lopressor) Start Date: 04/10/17 Stop Date: 04/11/17 Status: Discontinued morphine Sulfate 4 mg, 1 mL, Route: IVP, Drug form: SOLN, ONCE, Dosing Weight 118.182, kg, Priori ty: STAT, Start date: 04/10/17 19:49:00 CDT, Stop date: 04/10/17 19:49:00 CDT Notes: (Same as:MORPhine Sulfate) Start Date: 04/10/17 Stop Date: 04/10/17 Status: Completed ondansetron 4 mg, Route: IVP, Q6H, Dosing Weight 118.182, kg, PRN Nausea & Vomiting, Start date: 04/10/17 20:08:00 CDT, Duration: 30 day, Stop date: 05/10/17 20:07:00 CUSTOMS MANAGER Start Date: 04/10/17 Stop Date: 04/10/17 Status: Discontinued pneumococcal 13-valent vaccine 0.5 mL, Route: IM, Drug Form: INJ, Daily, Start date: 04/11/17 9:00:00 CDT, Dura tion: 1 doses or times, Stop date: 04/11/17 9:00:00 CDT Notes: Shake well prior to use (Same as: Prevnar 13) Start Date: 04/11/17 Stop Date: 04/11/17 Status: Completed potassium chloride 20 mEq, Daily, 0 Refill(s) Start Date: 04/11/17 Status: Ordered tamsulosin 0.4 mg, 1 cap, Route: PO, Drug form: CAP, Daily, Dosing Weight 118.182, kg, Star t date: 04/11/17 9:00:00 CDT, Duration: 30 day, Stop date: 05/10/17 9:00:00 CUSTOMS MANAGER Notes: (Same As: Flomax) "Do Not Crush" Start Date: 04/11/17 Stop Date: 04/11/17 Status: Discontinued torsemide 20 mg oral tablet 20 mg=1 tab, PO, BID, 0 Refill(s) Start Date: 04/11/17 Status: Ordered Toujeo SoloStar 300 units/mL subcutaneous solution 25 unit, Route: SUB-Q, Drug form: SOLN, Daily, Dosing Weight 118.182, kg, Start date: 04/12/17 9:00:00 CDT, Duration: 30 day, Stop date: 05/11/17 9:00:00 CUSTOMS MANAGER Start Date: 04/12/17 Stop Date: 04/11/17 Status: Canceled Toujeo SoloStar 300 units/mL subcutaneous solution 40 unit, SUB-Q, Daily, # 4 mL, 0 Refill(s), Pharmacy: [facility] [place] Start Date: 04/11/17 Status: Ordered Toujeo SoloStar 300 units/mL subcutaneous solution 64 unit, 0.64 mL, Route: SUB-Q, Drug form: SOLN, Daily, Dosing Weight 118.182, k g, Start date: 04/11/17 9:00:00 CDT, Duration: 30 day, Stop date: 05/10/17 9:00: 00 CUSTOMS MANAGER Notes: Same as: Makenzie)Do not hold insulin without contacting prescriberWASTE: F /P - Black; E - [employer] Trash Bin Start Date: 04/11/17 Stop Date: 04/11/17 Status: Discontinued Toujeo SoloStar 300 units/mL subcutaneous solution 80 unit, SUB-Q, Daily, 0 Refill(s) Start Date: 04/11/17 Stop Date: 04/11/17 Status: Discontinued Results ELECTROLYTES Most recent to 1 oldest [Reference Range]: Sodium Lvl [135-145 138 mEq/L mEq/L] (04/10/17 5:00 PM) Potassium Lvl 4.3 mEq/L [3.5-5.1 mEq/L] (04/10/17 5:00 PM) Chloride Lvl [95-109 107 mEq/L mEq/L] (04/10/17 5:00 PM) CO2 [24-32 mEq/L] 25 mEq/L (04/10/17 5:00 PM) AGAP [10.0-20.0 10.3 mEq/L mEq/L] (04/10/17 5:00 PM) CHEM PANEL Most recent to 1 oldest [Reference Range]: Creatinine Lvl 2.03 mg/dL [0.50-1.40 mg/dL] *HI* (04/10/17 5:00 PM) eGFR 33 mL/min/1.73m2 1 *NA* (04/10/17 5:00 PM) BUN [7-22 mg/dL] 28 mg/dL *HI* (04/10/17 5:00 PM) Glucose Lvl [70-99 98 mg/dL mg/dL] (04/10/17 5:00 PM) Calcium Lvl 10.1 mg/dL [8.5-10.5 mg/dL] (04/10/17 5:00 PM) 1Result Comment: The eGFR is calculated using the [...] from the National Kidney Disease Education Program ( NKDEP) which additionally recommends that when the eGFR is used in patients with extremes of body mass index for purposes of drug dosing, the eGFR should be mul tiplied by the estimated BMI. HEMATOLOGY Most recent to 1 oldest [Reference Range]: WBC [3.7-10.4 K/CMM] 5.2 K/CMM (04/10/17 5:00 PM) RBC [4.70-6.10 3.41 M/CMM M/CMM] *LOW* (04/10/17 5:00 PM) Hgb [14.0-18.0 g/dL] 8.8 g/dL *LOW* (04/10/17 5:00 PM) Hct [42.0-54.0 %] 27.7 % *LOW* (04/10/17 5:00 PM) MCV [80.0-94.0 fL] 81.3 fL (04/10/17 5:00 PM) MCH [27.0-31.0 pg] 25.7 pg *LOW* (04/10/17 5:00 PM) MCHC [32.0-36.0 31.6 g/dL g/dL] *LOW* (04/10/17 5:00 PM) RDW [11.5-14.5 %] 18.3 % *HI* (04/10/17 5:00 PM) Platelet [133-450 234 K/CMM K/CMM] (04/10/17 5:00 PM) MPV [7.4-10.4 fL] 7.4 fL (04/10/17 5:00 PM) Segs [45.0-75.0 %] 70.3 % (04/10/17 5:00 PM) Lymphocytes 14.5 % [20.0-40.0 %] *LOW* (04/10/17 5:00 PM) Monocytes [2.0-12.0 7.3 % %] (04/10/17 5:00 PM) Eosinophils [0.0-4.0 6.1 % %] *HI* (04/10/17 5:00 PM) Basophils [0.0-1.0 1.8 % %] *HI* (04/10/17 5:00 PM) Segs-Bands # 3.6 K/CMM [1.5-8.1 K/CMM] (04/10/17 5:00 PM) Lymphocytes # 0.7 K/CMM [1.0-5.5 K/CMM] *LOW* (04/10/17 5:00 PM) Monocytes # [0.0-0.8 0.4 K/CMM K/CMM] (04/10/17 5:00 PM) Eosinophils # 0.3 K/CMM [0.0-0.5 K/CMM] (04/10/17 5:00 PM) Basophils # [0.0-0.2 0.1 K/CMM K/CMM] (04/10/17 5:00 PM) PT [12.0-14.7 15.0 seconds seconds] *HI* (04/10/17 5:00 PM) INR [0.85-1.17] 1.17 (04/10/17 5:00 PM) PTT [22.9-35.8 33.7 seconds seconds] (04/10/17 5:00 PM) ACT (TEG) Rapid 121 seconds [86-118 seconds] *HI* (04/10/17 5:00 PM) Split Point Rapid 0.6 minutes *NA* (04/10/17 5:00 PM) R-time Rapid 0.8 minutes [0.4-0.7 minutes] *HI* (04/10/17 5:00 PM) K-time Rapid 0.8 minutes [0.6-2.3 minutes] (04/10/17 5:00 PM) Angle Rapid [64-80 80 degrees degrees] (04/10/17 5:00 PM) Max Amplitude Rapid 74 mm [52-71 mm] *HI* (04/10/17 5:00 PM) G-value Rapid 14.5 K d/sc [5.0-11.6 K d/sc] *HI* (04/10/17 5:00 PM) Estimated % Lysis 0.0 % Rapid [0.0-7.5 %] (04/10/17 5:00 PM) Immunizations Given and Recorded Vaccine Date Status Refusal Reason Hx influenza vaccine-unspecified1 04/26/14 Given pneumococcal 13-valent vaccine 04/11/17 Given 1Result Comment: done. Migrated from OBS ; Data migrated from [employer] on 07/26/2015. Procedures Procedure Date Related Diagnosis Body Site Nephrectomy 11/22/02 Social History Social History Type Response Substance Abuse Use: None. 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
--- OUTSIDE RECORDS SUMMARY | 2019-02-22 08:10 | XMS REPORT | Summary of Care ---
Author Author [facility] Outpatient Imaging [facility] Outpatient Imaging [facility] Address Unknown Phone Unavailable Encounter RAFIA Valiente(CORINNA) [id number] Date(s): 04/10/17 - 04/10/17 [facility] Outpatient Imaging [facility] [address] [facility], [address] [place] [phone] Discharge Disposition: Home or Self Care Attending Physician: Brenton Wilcox MD Vital Signs No data available for [...] Migrated from OBS ; Data migrated from [employer] on 07/26/2015. Procedures Procedure Date Related Diagnosis Body Site Nephrectomy 11/22/02 Social History Social History Type Response Substance Abuse Use: None. Alcohol Never Smoking Status Former smoker; Type: Cigars; Exposure to Tobacco Smoke None; Cigarette Smoking Last 365 Days No; Reg Smoking Cessation Counseling No Assessment and Plan No data available for this section
--- OUTSIDE RECORDS SUMMARY | 2019-02-22 08:10 | XMS REPORT | Summary of Care ---
Author Author [facility] [place] Organization [facility] [place] Address Unknown Phone Unavailable Encounter RAFIA Valiente(CORINNA) [id number] Date(s): 10/17/16 - 10/17/16 [facility] [place] [address] [phone] Discharge Disposition: Home or Self Care Attending Physician: Nic Paz MD Vital Signs No data available for this section Problem List Condition Effective Dates Status Health Status Informant Asthma1 Active Benign essential Active hypertension2 Chronic kidney Active disease stage 33 Chronic kidney 07/05/14 Active disease stage 44 Chronic 05/28/14 Active osteomyelitis of the ankle and/or foot5 Depressive disorder6 08/10/13 Active Diabetes mellitus7 11/23/13 Active Dyspnea8 Active Edema9 03/12/14 Active Gout10 07/05/14 Active Txdoqqdyh82 05/05/13 Active Malaise and Active Malignant 11/23/13 Active rforujfcwoni88 Obesity(Confirmed) Active Post-inflammatory Active pulmonary izifwvuh44 Pure Active hypercholesterolemia 15 Renal Resolved carcinoma(Confirmed) Spontaneous Active gebqlpfahk44 1Data migrated from [employer] on 11/20/14. 2Data migrated from [employer] on 11/20/14. 3Data migrated from [employer] on 11/20/14. 4Data migrated from [employer] on 11/20/14. 5Data migrated from [employer] on 11/20/14. 6Data migrated from [employer] on 11/20/14. 7Data migrated from [employer] on 11/20/14. 8Data migrated from [employer] on 11/20/14. 9Data migrated from [employer] on 11/20/14. 10Data migrated from [employer] on 11/20/14. 11Data migrated from [employer] on 11/20/14. 12Data migrated from [employer] on 11/20/14. 13Data migrated from [employer] on 11/20/14. 14Data migrated from [employer] on 11/20/14. 15Data migrated from [employer] on 11/20/14. 16Data migrated from [employer] on 11/20/14. Allergies, Adverse Reactions, Alerts Substance Reaction Severity Status clindamycin Active hydrALAZINE1 Active 1Data migrated from [employer] on 10/22/14. Originally documented as HYDRALAZINE HCL. dyspnea Medications No data available for this section Results No data available for this section Immunizations Given and Recorded Vaccine Date Status Refusal Reason Hx influenza vaccine-unspecified1 04/26/14 Given 1Result Comment: done. Migrated from OBS ; Data migrated from [employer] on 07/26/2015. Procedures Procedure Date Related Diagnosis Body Site Nephrectomy 11/22/02 Social History Social History Type Response Substance Abuse Use: None. Alcohol Never Smoking Status Former smoker; Type: Cigars; Exposure to Tobacco Smoke None; Cigarette Smoking Last 365 Days No; Reg Smoking Cessation Counseling No Assessment and Plan No data available for this section
[2019-02-22] MEDS ORDERED: SODIUM CHLORIDE 0.9% 1000ML 1,000 ML IV STA (08:11)
--- OUTSIDE RECORDS SUMMARY | 2019-02-22 08:11 | XMS REPORT | Summary of Care ---
Author Author [facility] Outpatient Imaging [facility] Outpatient Imaging [facility] Address Unknown Phone Unavailable Encounter RAFIA Valiente(CORINNA) [id number] Date(s): 06/06/17 - 06/06/17 [facility] Imaging [facility] [address], [address] [place] [phone] Discharge Disposition: Home or Self Care Attending [...] and Recorded Vaccine Date Status Refusal Reason pneumococcal 13-valent vaccine 04/11/17 Given Hx influenza vaccine-unspecified1 04/26/14 Given 1Result Comment: done. Migrated from [facility] ; Data migrated from [employer] on 07/26/2015. Procedures Procedure Date Related Diagnosis Body Site Nephrectomy 11/22/02 Social History Social History Type Response Substance Abuse Use: None. Alcohol Never Smoking Status Former smoker; Type: Cigars; Exposure to Tobacco Smoke None; Cigarette Smoking Last 365 Days No; Reg Smoking Cessation Counseling No Assessment and Plan No data available for this section
--- OUTSIDE RECORDS SUMMARY | 2019-02-22 08:11 | XMS REPORT | Summary of Care ---
Author Author [facility] Primary Care [facility] [place] Organization [facility] Primary Care [facility] [place] Address Unknown Phone Unavailable Care Team Providers Care Cooler Man Name Role Phone Nic Paz PCP Encounter HQ Encntr_alimague(FIN) [id number] Date(s): 07/08/18 - 07/08/18 [facility] Primary Care [facility] [place] [address] [place] [address]- Discharge Disposition: Home or Self Care Attending Physician: Nic Paz MD Vital Signs Most recent to 1 oldest [Reference Range]: Height 198.12 cm (07/08/18 11:07 AM) Blood Pressure 113/62 mmHg [90-140/60-90 mmHg] (07/08/18 11:07 AM) Respiratory Rate 14 BRMIN [14-20 BRMIN] (07/08/18 11:07 AM) Peripheral Pulse 106 bpm Rate [60-100 bpm] *HI* (07/08/18 11:07 AM) Weight 119.545 kg (07/08/18 11:07 AM) Body Mass Index 30.46 m2 (07/08/18 11:07 AM) Problem List Condition Effective Dates Status Health [...] Coffee ground Active emesis(Confirmed) 1Data migrated from [employer] on 11/20/14. 2Data migrated from [employer] on 11/20/14. 3Data migrated from [employer] on 11/20/14. 4RLE Joint Aspirate - 08/01/2018 5Blood, 01/19/2017 6Problem added by Discern Expert. Allergies, Adverse Reactions, Alerts Substance Reaction Severity Status clindamycin Active hydrALAZINE1 Active 1Data migrated from [employer] on 10/22/14. Originally documented as HYDRALAZINE HCL. dyspnea Medications acetaminophen-hydrocodone 325 mg-10 mg oral tablet 1 tab, PO, QID, PRN Pain, X 20 day, # 60 tab, 0 Refill(s), given to patient Start Date: 07/08/18 Stop Date: 07/28/18 Status: Completed rosuvastatin 5 mg oral tablet 5 mg=1 tab, PO, Bedtime, # 30 tab, 0 Refill(s) Start Date: 07/08/18 Stop Date: 10/30/18 Status: Deleted Tylenol with Codeine #4 oral tablet 1 tab, PO, QID, PRN pain, # 120 tab, 0 Refill(s) Start Date: 08/11/18 Stop Date: 10/30/18 Status: Deleted Results No data available for this section Immunizations Given and Recorded Vaccine Date Status Refusal Reason influenza virus vaccine, inactivated 04/08/18 Recorded pneumococcal 13-valent vaccine 04/11/17 Given Hx influenza vaccine-unspecified1 04/26/14 Given 1Result Comment: done. Migrated from OBS ; Data migrated from [employer] on 07/26/2015. Procedures Procedure Date Related Diagnosis Body Site Status Amputation below-knee 10/22/18 Completed Insertion of PICC (peripherally inserted 08/07/18 Completed central catheter) Vascular surgery procedure1 06/24/14 Completed Colonoscopy 2013 Completed Debridement2 06/24/09 Completed Nephrectomy 11/22/02 Completed 1Bilateral legs for lymphedema 2of the right foot Social History Social History Type Response Substance Abuse Use: None. Exercise 1, 2 Employment/School Status: Retired. Alcohol Never Smoking Status Former smoker; Type: Cigars; Exposure to Tobacco Smoke None; Cigarette Smoking Last 365 Days No; Reg Smoking Cessation Counseling No entered on: 01/26/19 1Pt works 3 times a week with him 2none Assessment and Plan No data available for this section
--- OUTSIDE RECORDS SUMMARY | 2019-02-22 08:11 | XMS REPORT | Summary of Care ---
Author Author [facility] Primary Care [facility] Organization [facility] Primary Care [facility] Address Unknown Phone Unavailable Encounter RAFIA Valiente(FIN) [id number] Date(s): 05/06/17 - 05/07/17 [facility] Primary Care [facility] [address], [address] [place] [address] [phone] Vital Signs No data available for this [...] Originally documented as HYDRALAZINE HCL. dyspnea Medications cloNIDine 0.1 mg oral tablet See Instructions, # 90 ea, Refill(s) 4, TAKE ONE (1) TABLET(S) BY MOUTH THREE TI MES A DAY., Pharmacy: [facility] Start Date: 05/06/17 Status: Ordered Results No data available for this section Immunizations Given and Recorded Vaccine Date Status Refusal Reason pneumococcal 13-valent vaccine 04/11/17 Given Hx influenza vaccine-unspecified1 04/26/14 Given 1Result Comment: done. Migrated from [facility] ; Data migrated from [employer] on 07/26/2015. Procedures Procedure Date Related Diagnosis Body Site Nephrectomy 11/22/02 Social History Social History Type Response Substance Abuse Use: None. Alcohol Never Smoking Status Former smoker; Type: Cigars; Exposure to Tobacco Smoke None; Cigarette Smoking Last 365 Days No; Reg Smoking Cessation Counseling No Assessment and Plan No data available for this section
--- OUTSIDE RECORDS SUMMARY | 2019-02-22 08:11 | XMS REPORT | Summary of Care ---
Author Author [facility] Primary Care [facility] Organization [facility] Primary Care [facility] Address Unknown Phone Unavailable Encounter RAFIA Valiente(FIN) [id number] Date(s): 06/10/17 - 06/11/17 [facility] Care [facility] [address], [address] [place] [address] [phone] Vital Signs No data available for this [...] Originally documented as HYDRALAZINE HCL. dyspnea Medications Lyrica 25 mg oral capsule 25 mg=1 cap, PO, Daily, # 30 cap, 0 Refill(s) Start Date: 06/10/17 Status: Ordered Results No data available for this section Immunizations Given and Recorded Vaccine Date Status Refusal Reason pneumococcal 13-valent vaccine 04/11/17 Given Hx influenza vaccine-unspecified1 04/26/14 Given 1Result Comment: done. Migrated from [employer] ; Data migrated from [employer] on 07/26/2015. Procedures Procedure Date Related Diagnosis Body Site Nephrectomy 11/22/02 Social History Social History Type Response Substance Abuse Use: None. Alcohol Never Smoking Status Former smoker; Type: Cigars; Exposure to Tobacco Smoke None; Cigarette Smoking Last 365 Days No; Reg Smoking Cessation Counseling No Assessment and Plan No data available for this section
--- OUTSIDE RECORDS SUMMARY | 2019-02-22 08:11 | XMS REPORT | Summary of Care ---
Author Author [facility] Primary Care [facility] Organization [facility] Care [facility] Address Unknown Phone Unavailable Encounter HQ Deanner_barbra(FIN) [id number] Date(s): 10/09/17 - 10/09/17 [facility] [address], [address] [place] [address] [phone] Attending Physician: Nic Paz MD Vital Signs [...] Migrated from OBS ; Data migrated from [employer] on 07/26/2015. Procedures Procedure Date Related Diagnosis Body Site Status Nephrectomy 11/22/02 Completed Social History Social History Type Response Substance Abuse Use: None. Alcohol Never Smoking Status Former smoker; Type: Cigars; Exposure to Tobacco Smoke None; Cigarette Smoking Last 365 Days No; Reg Smoking Cessation Counseling No entered on: 08/08/17 Assessment and Plan No data available for this section
--- OUTSIDE RECORDS SUMMARY | 2019-02-22 08:11 | XMS REPORT | Summary of Care ---
Author Author [facility] Primary Care [facility] Organization [facility] Care [facility] Address Unknown Phone Unavailable Encounter RAFIA Valiente(FIN) [id number] Date(s): 08/08/17 - 08/08/17 [facility] [address], [address] [place] [address] [phone] Discharge Disposition: Home or Self Care Attending Physician: Nic Paz MD Vital Signs Most recent to 1 oldest [Reference Range]: Height 198.12 cm (08/08/17 12:05 PM) Blood Pressure 134/86 mmHg [90-140/60-90 mmHg] (08/08/17 12:05 PM) Peripheral Pulse 94 bpm Rate [60-100 bpm] (08/08/17 12:05 PM) Weight 119.545 kg (08/08/17 12:05 PM) Body Mass Index 30.46 m2 (08/08/17 12:05 PM) Problem List Condition Effective Dates Status Health [...] clindamycin Active hydrALAZINE1 Active 1Data migrated from [employer] on 10/22/14. Originally documented as HYDRALAZINE HCL. dyspnea Medications Lyrica 25 mg oral capsule 25 mg=1 cap, PO, Daily, # 30 cap, 5 Refill(s) Start Date: 07/04/17 Status: Ordered Results No data available for this section Immunizations Given and Recorded Vaccine Date Status Refusal Reason pneumococcal 13-valent vaccine 04/11/17 Given Hx influenza vaccine-unspecified1 04/26/14 Given 1Result Comment: done. Migrated from OBS ; Data migrated from [employer] on 07/26/2015. Procedures Procedure Date Related Diagnosis [...]
--- OUTSIDE RECORDS SUMMARY | 2019-02-22 08:11 | XMS REPORT | Summary of Care ---
Author Author [facility] Primary Care [facility] Organization [facility] Address Unknown Phone Unavailable Encounter RAFIA Valiente(CORINNA) [id number] Date(s): 06/03/17 - 06/03/17 [facility] [address], [address] [place] [address] [phone] Discharge Disposition: Home or Self Care Attending Physician: Nic Paz MD Vital Signs Most recent to 1 oldest [Reference Range]: Height 198.12 cm (06/03/17 9:43 AM) Blood Pressure 144/74 mmHg [90-140/60-90 mmHg] *HI* (06/03/17 9:43 AM) Respiratory Rate 16 BRMIN [14-20 BRMIN] (06/03/17 9:43 AM) Peripheral Pulse 72 bpm Rate [60-100 bpm] (06/03/17 9:43 AM) Weight 126.818 kg (06/03/17 9:43 AM) Body Mass Index 32.31 m2 (06/03/17 9:43 AM) Problem List Condition Effective Dates Status [...] ground Active emesis(Confirmed) 1Data migrated from [facility] on 11/20/14. 2Data migrated from [employer] on 11/20/14. 3Data migrated from [employer] on 11/20/14. 4Blood, 01/19/2017 5Problem added by Discern Expert. Allergies, Adverse Reactions, Alerts Substance Reaction Severity Status clindamycin Active hydrALAZINE1 Active 1Data migrated from [employer] on 10/22/14. Originally documented as HYDRALAZINE HCL. dyspnea Medications acetaminophen-hydrocodone 325 mg-7.5 mg oral tablet 1 tab, PO, QID, PRN Pain, # 120 tab, 0 Refill(s), given to patient Start Date: 06/03/17 Status: Ordered Eliquis 5 mg oral tablet 5 mg=1 tab, PO, BID, # 60 tab, 5 Refill(s), Pharmacy: [facility] Lisa Carroll Start Date: 06/03/17 Status: Ordered Results ELECTROLYTES 1 2 3 Most recent to oldest [Reference Range]: 139 mMol/L *N* (06/03/17 11:06 AM) 136 mMol/L *N* (10/08/16 11:21 AM) Sodium Lvl [135-146 mMol/L] 4.3 mMol/L *N* (06/03/17 11:06 AM) 3.2 mMol/L *L* (10/08/16 11:21 AM) Potassium Lvl [3.5-5.3 mMol/L] 103 mMol/L *N* (06/03/17 11:06 AM) 92 mMol/L *L* (10/08/16 11:21 AM) Chloride Lvl [98-110 mMol/L] 33 mMol/L *HI* (06/03/17 11:06 AM) 34 mMol/L *H* (10/08/16 11:21 AM) CO2 [20-31 mMol/L] CHEM PANEL 1 2 3 Most recent to oldest [Reference Range]: 1.99 mg/dL 1 *HI* (06/03/17 11:06 AM) 2.63 mg/dL 2 *H* (10/08/16 11:21 AM) Creatinine Lvl [0.70-1.25 mg/dL] 34 mL/min/1.73m2 *LOW* (06/03/17 11:06 AM) 24 mL/min/1.73m2 *L* (10/08/16 11:21 AM) eGFR NON-AFR. NAMIBIAN [> OR=60 mL/min/1.73m2] 39 mL/min/1.73m2 *LOW* (06/03/17 11:06 AM) 28 mL/min/1.73m2 *L* (10/08/16 11:21 AM) eGFR [> OR=60 mL/min/1.73m2] 31 mg/dL *HI* (06/03/17 11:06 AM) 61 mg/dL *H* (10/08/16 11:21 AM) BUN [7-25 mg/dL] 16 (CALC) *N* (06/03/17 11: AM) 23 (CALC) *H* (10/08/16 11:21 AM) B/C Ratio [6-22 (CALC)] 88 mg/dL 3 *N* (06/03/17 11:06 AM) 96 mg/dL 4 *N* (10/08/16 11:21 AM) Glucose Lvl [65-99 mg/dL] 6.9 g/dL *N* (06/03/17 11:06 AM) 6.9 g/dL *N* (10/08/16 11:21 AM) Total Protein [6.1-8.1 g/dL] 3.6 g/dL *N* (06/03/17 11:06 AM) 4.0 g/dL *N* (10/08/16 11:21 AM) Albumin Lvl [3.6-5.1 g/dL] 3.3 g/dL *N* (06/03/17 11:06 AM) 2.9 g/dL *N* (10/08/16 11:21 AM) Globulin [1.9-3.7 g/dL] 1.1 (CALC) *N* (06/03/17 11:06 AM) 1.4 (CALC) *N* (10/08/16 11:21 AM) A/G Ratio [1.0-2.5 (CALC)] 10.4 mg/dL *HI* (06/03/17 11:06 AM) 10.7 mg/dL *H* (10/08/16 11:21 AM) Calcium Lvl [8.6-10.3 mg/dL] 16 unit/L *N* (06/03/17 11:06 AM) 30 unit/L *N* (10/08/16 11:21 AM) ALT [9-46 unit/L] 16 unit/L *N* (06/03/17 11:06 AM) 29 unit/L *N* (10/08/16 11:21 AM) AST [10-35 unit/L] 185 unit/L *HI* (06/03/17 11:06 AM) 117 unit/L *H* (10/08/16 11:21 AM) Alk Phos [40-115 unit/L] 0.3 mg/dL *N* (06/03/17 11:06 AM) 0.5 mg/dL *N* (10/08/16 11:21 AM) Bili Total [0.2-1.2 mg/dL] 1Result Comment: For patients >49 years of age, the reference limit for Creatinine is approximately 13% higher for people identified as -Mauritanian. 2Result Comment: For patients >49 years of age, the reference limit for Creatinine is approximately 13% higher for people identified as -Mauritanian. 3Result Comment: Fasting reference interval [facility] by: [facility] [address] [place] [phone] Jennifer Rosenthal MD 4Result Comment: Fasting reference interval Lab test performed by: [facility] [address] [place] [phone] Jennifer Rosenthal MD CARDIAC ENZYMES 1 2 3 Most recent to oldest [Reference Range]: 223 unit/L 1 *H* (10/08/16 11:21 AM) Total CK [44-196 unit/L] 1Result Comment: Lab test performed by: [facility] [address] [place] [phone] Jennifer Rosenthal MD HEMATOLOGY 1 2 3 Most recent to oldest [Reference Range]: 4.9 K/CMM 1 *N* (06/03/17 11:06 AM) 4.9 K/CMM 2 *N* (06/03/17 11:06 AM) 7.9 K/CMM 3 *N* (10/08/16 11:21 AM) WBC [3.8-10.8 K/CMM] 3.55 M/CMM *LOW* (06/03/17 11:06 AM) 3.55 M/CMM *LOW* (06/03/17 11:06 AM) 4.81 M/CMM *N* (10/08/16 AM) RBC [4.20-5.80 M/CMM] 9.0 g/dL *LOW* (06/03/17 11:06 AM) 9.0 g/dL *LOW* (06/03/17 11:06 AM) 13.9 g/dL *N* (10/08/16: AM) Hgb [13.2-17.1 g/dL] 29.0 % *LOW* (06/03/17 11:06 AM) 29.0 % *LOW* (06/03/17 11:06 AM) 42.8 % *N* (10/08/16 AM) Hct [38.5-50.0 %] 81.7 fL *N* (06/03/17 11:06 AM) 81.7 fL *N* (06/03/17 11:06 AM) 89.1 fL *N* (10/08/16: AM) MCV [80.0-100.0 fL] 25.4 pg *LOW* (06/03/17 11:06 AM) 25.4 pg *LOW* (06/03/17 11:06 AM) 29.0 pg *N* (10/08/16 AM) MCH [27.0-33.0 pg] 31.0 g/dL *LOW* (06/03/17 11:06 AM) 31.0 g/dL *LOW* (06/03/17 11:06 AM) 32.5 g/dL *N* (10/08/16: AM) MCHC [32.0-36.0 g/dL] 18.1 % *HI* (06/03/17 11:06 AM) 18.1 % *HI* (06/03/17 11:06 AM) 17.7 % *H* (10/08/16:21 AM) RDW [11.0-15.0 %] 316 K/CMM *N* (06/03/17 11:06 AM) 316 K/CMM *N* (06/03/17 11:06 AM) 214 K/CMM *N* (10/08/16 11:21 AM) Platelet [140-400 K/CMM] 9.9 fL *N* (06/03/17 11:06 AM) 9.9 fL *N* (06/03/17 11:06 AM) 8.1 fL *N* (10/08/16 11:21 AM) MPV [7.5-12.5 fL] 71 % *N* (06/03/17 11:06 AM) 71 % *N* (06/03/17 11:06 AM) 71.0 % *N* (10/08/16 11:21 AM) Segs 18.0 % *N* (06/03/17 11:06 AM) 18.0 % *N* (06/03/17 11:06 AM) 17.4 % *N* (10/08/16 11:21 AM) Lymphocytes 9.2 % *N* (06/03/17 11:06 AM) 9.2 % *N* (06/03/17 11:06 AM) 5.8 % *N* (10/08/16 11:21 AM) Monocytes 0.0 % *N* (06/03/17 11:06 AM) 0.0 % *N* (06/03/17 11:06 AM) 4.9 % *N* (10/08/16 11:21 AM) Eosinophils 1.8 % *N* (06/03/17 11:06 AM) 1.8 % *N* (06/03/17 11:06 AM) 0.9 % *N* (10/08/16 11:21 AM) Basophils 3479 Cells/uL *N* (06/03/17 11:06 AM) 3479 Cells/uL *N* (06/03/17 11:06 AM) 5609 Cells/uL *N* (10/08/16 11:21 AM) Segs-Bands # [[id number] Cells/uL] 882 Cells/uL *N* (06/03/17 11:06 AM) 882 Cells/uL *N* (06/03/17 11:06 AM) 1375 Cells/uL *N* (10/08/16 11:21 AM) Lymphocytes # [850-3900 Cells/uL] 451 Cells/uL *N* (06/03/17 11:06 AM) 451 Cells/uL *N* (06/03/17 11:06 AM) 458 Cells/uL *N* (10/08/16 11:21 AM) Monocytes # [200-950 Cells/uL] 0 Cells/uL *LOW* (06/03/17 11:06 AM) 0 Cells/uL *LOW* (06/03/17 11:06 AM) 387 Cells/uL *N* (10/08/16 11:21 AM) Eosinophils # [15-500 Cells/uL] 88 Cells/uL *N* (06/03/17 11:06 AM) 88 Cells/uL *N* (06/03/17 11:06 AM) 71 Cells/uL *N* (10/08/16 11:21 AM) Basophils # [0-200 Cells/uL] 1Result Comment: Lab test performed by: [facility] [address] [place] [phone] Jennifer Rosenthal MD 2Result Comment: Lab test performed by: [facility] [address] [place] [phone] Jennifer Rosenthal MD 3Result Comment: Lab test performed by: [facility] [address] [place] [phone] Jennifer Rosenthal MD Immunizations Given and Recorded Vaccine Date Status Refusal Reason pneumococcal 13-valent vaccine 04/11/17 Given Hx influenza vaccine-unspecified1 04/26/14 Given 1Result Comment: done. Migrated from OBS ; Data migrated from [employer] on 07/26/2015. Procedures Procedure Date Related Diagnosis Body Site Nephrectomy 11/22/02 Social History Social History Type Response Substance Abuse Use: None. Alcohol Never Smoking Status Former smoker; Type: Cigars; Exposure to Tobacco Smoke None; Cigarette Smoking Last 365 Days No; Reg Smoking Cessation Counseling No Assessment and Plan No data available for this section
--- OUTSIDE RECORDS SUMMARY | 2019-02-22 08:11 | XMS REPORT | Summary of Care ---
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 [place] [address]- Discharge Disposition: Home or Self Care Attending Physician: Nic Paz MD Vital Signs Most recent to 1 oldest [Reference Range]: Height 198.12 cm (05/07/18 11:47 AM) Blood Pressure 101/56 mmHg [90-140/60-90 mmHg] (05/07/18 11:47 AM) Respiratory Rate 14 BRMIN [14-20 BRMIN] (05/07/18 11:47 AM) Peripheral Pulse 96 bpm Rate [60-100 bpm] (05/07/18 11:47 AM) Weight 112.727 kg (05/07/18 11:47 AM) Body Mass Index 28.72 m2 (05/07/18 11:47 AM) Problem List Condition Effective Dates Status Health Status Informant Afib(Confirmed) Active Afib(Confirmed) Resolved Benign essential Active hypertension(Confirm ed)1 Chronic diastolic Active heart failure(Confirmed) 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 dyspnea Medications lisinopril 40 mg oral tablet 40 mg=1 tab, PO, Daily, # 90 tab, 3 Refill(s), Pharmacy: [facility] Start Date: 06/13/18 Stop Date: 08/06/18 Status: Discontinued tramadol 50 mg oral tablet 50 mg=1 tab, PO, BID, PRN pain, # 180 tab, 0 Refill(s) Start Date: 05/13/18 Stop Date: 08/06/18 Status: Discontinued Results Most recent to 1 2 oldest [Reference Range]: Neutrophils # 5072 Cells/uL 5072 Cells/uL [4306-9162 Cells/uL] *N* *N* (05/07/18 10:54 AM) (05/07/18 10:54 AM) Lymphocytes # 931 Cells/uL 931 Cells/uL [850-3900 Cells/uL] *N* *N* (05/07/18 10:54 AM) (05/07/18 10:54 AM) Monocytes # [200-950 342 Cells/uL 342 Cells/uL Cells/uL] *N* *N* (05/07/18 10:54 AM) (05/07/18 10:54 AM) Eosinophils # 268 Cells/uL 268 Cells/uL [15-500 Cells/uL] *N* *N* (05/07/18 10:54 AM) (05/07/18 10:54 AM) Basophils # [0-200 87 Cells/uL 87 Cells/uL Cells/uL] *N* *N* (05/07/18 10:54 AM) (05/07/18 10:54 AM) Non HDL Chol [<130 160 mg/dL 1 mg/dL] *HI* (05/07/18 10:54 AM) eGFR NON-AFR. 35 mL/min/1.73m2 35 mL/min/1.73m2 MALAGASY [> OR=60 *LOW* *LOW* mL/min/1.73m2] (05/07/18 10:54 AM) (05/07/18 10:54 AM) eGFR 40 mL/min/1.73m2 40 mL/min/1.73m2 MALAGASY [> OR=60 *LOW* *LOW* mL/min/1.73m2] (05/07/18 10:54 AM) (05/07/18 10:54 AM) A/G Ratio [1.0-2.5 1.5 (CALC) 1.5 (CALC) (CALC)] *N* *N* (05/07/18 10:54 AM) (05/07/18 10:54 AM) Albumin Lvl [3.6-5.1 4.0 g/dL 4.0 g/dL g/dL] *N* *N* (05/07/18 10:54 AM) (05/07/18 10:54 AM) Alk Phos [40-115 239 unit/L 239 unit/L unit/L] *HI* *HI* (05/07/18 10:54 AM) (05/07/18 10:54 AM) ALT [9-46 unit/L] 13 unit/L 13 unit/L *N* *N* (05/07/18 10:54 AM) (05/07/18 10:54 AM) AST [10-35 unit/L] 15 unit/L 15 unit/L *N* *N* (05/07/18 10:54 AM) (05/07/18 10:54 AM) B/C Ratio [6-22 20 (CALC) 20 (CALC) (CALC)] *N* *N* (05/07/18 10:54 AM) (05/07/18 10:54 AM) Basophils 1.3 % 1.3 % *N* *N* (05/07/18 10:54 AM) (05/07/18 10:54 AM) BUN [7-25 mg/dL] 39 mg/dL 39 mg/dL *HI* *HI* (05/07/18 10:54 AM) (05/07/18 10:54 AM) Calcium Lvl 10.0 mg/dL 10.0 mg/dL [8.6-10.3 mg/dL] *N* *N* (05/07/18 10:54 AM) (05/07/18 10:54 AM) CHD Risk [<5.0 5.3 (CALC) (CALC)] *HI* (05/07/18 10:54 AM) Chol [<200 mg/dL] 197 mg/dL 2 *N* (05/07/18 10:54 AM) Chloride Lvl [98-110 108 mMol/L 108 mMol/L mMol/L] *N* *N* (05/07/18 10:54 AM) (05/07/18 10:54 AM) CO2 [20-32 mMol/L] 26 mMol/L 26 mMol/L *N* *N* (05/07/18 10:54 AM) (05/07/18 10:54 AM) Creatinine Lvl 1.94 mg/dL 3 1.94 mg/dL 4 [0.70-1.25 mg/dL] *HI* *HI* (05/07/18 10:54 AM) (05/07/18 10:54 AM) Eosinophils 4.0 % 4.0 % *N* *N* (05/07/18 10:54 AM) (05/07/18 10:54 AM) Globulin [1.9-3.7 2.7 g/dL 2.7 g/dL g/dL] *N* *N* (05/07/18 10:54 AM) (05/07/18 10:54 AM) Glucose Lvl [65-99 82 mg/dL 5 82 mg/dL 6 mg/dL] *N* *N* (05/07/18 10:54 AM) (05/07/18 10:54 AM) Hct [38.5-50.0 %] 37.6 % 37.6 % *LOW* *LOW* (05/07/18 10:54 AM) (05/07/18 10:54 AM) HDL [>40 mg/dL] 37 mg/dL *LOW* (05/07/18 10:54 AM) Hgb [13.2-17.1 g/dL] 12.3 g/dL 12.3 g/dL *LOW* *LOW* (05/07/18 10:54 AM) (05/07/18 10:54 AM) Hgb A1C [<5.7 %] 5.4 % 7 5.4 % 8 *N* *N* (05/07/18 10:54 AM) (05/07/18 10:54 AM) Potassium Lvl 4.4 mMol/L 4.4 mMol/L [3.5-5.3 mMol/L] *N* *N* (05/07/18 10:54 AM) (05/07/18 10:54 AM) LDL (Calculated) 130 mg/dL 9 *HI* (05/07/18 10:54 AM) Lymphocytes 13.9 % 13.9 % *N* *N* (05/07/18 10:54 AM) (05/07/18 10:54 AM) MCH [27.0-33.0 pg] 29.6 pg 29.6 pg *N* *N* (05/07/18 10:54 AM) (05/07/18 10:54 AM) MCHC [32.0-36.0 32.7 g/dL 32.7 g/dL g/dL] *N* *N* (05/07/18 10:54 AM) (05/07/18 10:54 AM) MCV [80.0-100.0 fL] 90.6 fL 90.6 fL *N* *N* (05/07/18 10:54 AM) (05/07/18 10:54 AM) Monocytes 5.1 % 5.1 % *N* *N* (05/07/18 10:54 AM) (05/07/18 10:54 AM) MPV [7.5-12.5 fL] 10.7 fL 10.7 fL *N* *N* (05/07/18 10:54 AM) (05/07/18 10:54 AM) Sodium Lvl [135-146 143 mMol/L 143 mMol/L mMol/L] *N* *N* (05/07/18 10:54 AM) (05/07/18 10:54 AM) Platelet [140-400 240 K/CMM 240 K/CMM K/CMM] *N* *N* (05/07/18 10:54 AM) (05/07/18 10:54 AM) Segs 75.7 % 75.7 % *N* *N* (05/07/18 10:54 AM) (05/07/18 10:54 AM) Total Protein 6.7 g/dL 6.7 g/dL [6.1-8.1 g/dL] *N* *N* (05/07/18 10:54 AM) (05/07/18 10:54 AM) PSA [< OR=4.0 ng/mL] 0.9 ng/mL 10 0.9 ng/mL 11 *N* *N* (05/07/18 10:54 AM) (05/07/18 10:54 AM) RBC [4.20-5.80 4.15 M/CMM 4.15 M/CMM M/CMM] *LOW* *LOW* (05/07/18 10:54 AM) (05/07/18 10:54 AM) RDW [11.0-15.0 %] 16.4 % 16.4 % *HI* *HI* (05/07/18 10:54 AM) (05/07/18 10:54 AM) Bili Total [0.2-1.2 0.3 mg/dL 0.3 mg/dL mg/dL] *N* *N* (05/07/18 10:54 AM) (05/07/18 10:54 AM) Trig [<150 mg/dL] 166 mg/dL *HI* (05/07/18 10:54 AM) WBC [3.8-10.8 K/CMM] 6.7 K/CMM 12 6.7 K/CMM 13 *N* *N* (05/07/18 10:54 AM) (05/07/18 10:54 AM) 1Result Comment: For patients with diabetes plus 1 major ASCVD risk factor, treating to a non-HDL-C goal of <100 mg/dL (LDL-C of <70 mg/dL) is considered a therapeutic option. 2Result Comment: Lab test performed by: [facility] [address] [place] [phone] Jennifer Rosenthal 3Result Comment: For patients >49 years of age, the reference limit for Creatinine is approximately 13% higher for people identified as -[place]. 4Result Comment: For patients >49 years of age, the reference limit for Creatinine is approximately 13% higher for people identified as -[place]. 5Result Comment: Fasting reference interval Lab test performed by: [facility] [address] [place] [phone] Jennifer Rosenthal 6Result Comment: Fasting reference interval Lab test performed by: [facility] [address] [place] [phone] Jennifer Rosenthal 7Result Comment: For the purpose of screening for the presence of diabetes: <5.7% Consistent with the absence of diabetes 5.7-6.4% Consistent with increased risk for diabetes (prediabetes) > or=6.5% Consistent with diabetes This assay result is consistent with a decreased risk of diabetes. Currently, no consensus exists regarding use of hemoglobin A1c for diagnosis of diabetes in children. According to [place] Diabetes Association (ADA) guidelines, hemoglobin A1c <7.0% represents optimal control in non- diabetic patients. Different metrics may apply to specific patient populations. Standards of Medical Care in Diabetes(ADA). FASTING:YES FASTING: YES Lab test performed by: [facility] [address] [place] [phone] Jennifer Rosenthal 8Result Comment: For the purpose of screening for the presence of diabetes: <5.7% Consistent with the absence of diabetes 5.7-6.4% Consistent with increased risk for diabetes (prediabetes) > or=6.5% Consistent with diabetes This assay result is consistent with a decreased risk of diabetes. Currently, no consensus exists regarding use of hemoglobin A1c for diagnosis of diabetes in children. According to [place] Diabetes Association (ADA) guidelines, hemoglobin A1c <7.0% represents optimal control in non- diabetic patients. Different metrics may apply to specific patient populations. Standards of Medical Care in Diabetes(ADA). FASTING:YES FASTING: YES Lab test performed by: [facility] [address] [place] [phone] Jennifer Rosenthal 9Result Comment: Reference range: <100 Desirable range <100 mg/dL for primary prevention; <70 mg/dL for patients with CHD or diabetic patients with > or=2 CHD risk factors. LDL-C is now calculated using the Masha calculation, which is a validated novel method providing better accuracy than the Friedewald equation in the estimation of LDL-C. Olivier LYNCH et al. SAAD. 2013;310(19): 3403-1551 (http://education.WeArePopup.com/faq/LJS071) 10Result Comment: The total PSA value from this assay system is standardized against the WHO standard. The test result will be approximately 20% lower when compared to the equimolar-standardized total PSA (Kashmir Rosamaria). Comparison of serial PSA results should be interpreted with this fact in mind. This test was performed using the Siemens chemiluminescent method. Values obtained from different assay methods cannot be used interchangeably. PSA levels, regardless of value, should not be interpreted as absolute evidence of the presence or absence of disease. Lab test performed by: [facility] [address] [place] [phone] Jennifer Rosenthal 11Result Comment: The total PSA value from this assay system is standardized against the WHO standard. The test result will be approximately 20% lower when compared to the equimolar-standardized total PSA (Kashmir [place]). Comparison of serial PSA results should be interpreted with this fact in mind. This test was performed using the Siemens chemiluminescent method. Values obtained from different assay methods cannot be used interchangeably. PSA levels, regardless of value, should not be interpreted as absolute evidence of the presence or absence of disease. Lab test performed by: [facility] [address] [place] [phone] Jennifer Rosenthal 12Result Comment: Lab test performed by: [facility] [address] [place] [phone] Jennifer Rosenthal 13Result Comment: Lab test performed by: [facility] [address] [place] [phone] Jennifer Rosenthal Immunizations Given and Recorded Vaccine Date Status Refusal Reason influenza virus vaccine, inactivated 04/08/18 Recorded pneumococcal 13-valent vaccine 04/11/17 Given Hx influenza vaccine-unspecified1 04/26/14 Given 1Result Comment: done. Migrated from OBS ; Data migrated from [employer] on 07/26/2015. Procedures Procedure Date Related Diagnosis Body Site Status Insertion of PICC (peripherally inserted 08/07/18 Completed central catheter) Colonoscopy 2013 Completed Nephrectomy 11/22/02 Completed Social History Social History Type Response Substance Abuse Use: None. Alcohol Never Smoking Status Former smoker; Type: Cigars; Exposure to Tobacco Smoke None; Cigarette Smoking Last 365 Days No; Reg Smoking Cessation Counseling No entered on: 10/30/18 Assessment and Plan No data available for this section
--- OUTSIDE RECORDS SUMMARY | 2019-02-22 08:11 | XMS REPORT | Summary of Care ---
Author Author [facility] Primary Care [facility] Organization [facility] Primary Care [facility] Address Unknown Phone Unavailable Encounter RAFIA Valiente(FIN) [phone] Date(s): 05/13/17 - 05/14/17 [facility] Care [facility] [address], [address] [place] [address] [phone] Vital Signs No data available for this [...] cloNIDine 0.1 mg oral tablet See Instructions, TAKE ONE (1) TABLET(S) BY MOUTH THREE TIMES A DAY., # 90 ea, 4 Refill(s), Pharmacy: [facility] [place] Start Date: 05/13/17 Status: Ordered Results No data available for this section Immunizations Given and Recorded Vaccine Date Status Refusal Reason pneumococcal 13-valent vaccine 04/11/17 Given Hx influenza vaccine-unspecified1 04/26/14 Given 1Result Comment: done. Migrated from [facility] ; Data migrated from pinion-pins on 07/26/2015. Procedures Procedure Date Related Diagnosis Body Site Nephrectomy 11/22/02 Social History Social History Type Response Substance Abuse Use: None. Alcohol Never Smoking Status Former smoker; Type: Cigars; Exposure to Tobacco Smoke None; Cigarette Smoking Last 365 Days No; Reg Smoking Cessation Counseling No Assessment and Plan No data available for this section
--- OUTSIDE RECORDS SUMMARY | 2019-02-22 08:11 | XMS REPORT | Summary of Care ---
Author Author [facility] Organization [facility] Address Unknown Phone Unavailable Encounter RAFIA Valiente(CORINNA) [id number] Date(s): 01/19/17 - 01/31/17 [facility] [address] [facility] provided by [facility] [place] [address]- Discharge Disposition: Group Home Facility Attending Physician: Kobe Trujillo MD Admitting Physician: Saeid Antoine DO Vital Signs 1 2 3 Most recent to oldest [Reference Range]: 198.12 cm (01/19/17 4:20 PM) 198.12 cm (01/19/17 3:00 PM) 198.12 cm (01/19/17 12:24 PM) Height 125.182 kg (01/25/17 6:24 AM) 125 kg (01/21/17 5:01 AM) 125 kg (01/20/17 5:37 AM) Current Weight 98.7 DegF (01/31/17 4:00 PM) 97.0 DegF (01/30/17 4:00 PM) 97.8 DegF (01/30/17 12:00 PM) Temperature Oral [96.4-99.1 DegF] 174/80 mmHg *HI* (01/31/17 5:00 PM) 157/86 mmHg *HI* (01/31/17 4:00 PM) 164/75 mmHg *HI* (01/31/17 2:00 PM) Blood Pressure [90-140/60-90 mmHg] 28 BRMIN *HI* (01/31/17 5:00 PM) 24 BRMIN *HI* (01/31/17 4:00 PM) 29 BRMIN *HI* (01/31/17 3:00 PM) Respiratory Rate [14-20 BRMIN] 68 bpm (01/31/17 5:44 AM) 56 bpm *LOW* (01/31/17 5:31 AM) 132 bpm *HI* (01/19/17 12:24 PM) Peripheral Pulse Rate [60-100 bpm] 125 kg (01/19/17 10:34 PM) 125 kg (01/19/17 4:20 PM) 125 kg (01/19/17 3:00 PM) Weight 31.85 m2 (01/19/17 12:24 PM) Body Mass Index Problem List Condition Effective Dates Status Health Status Informant Afib(Confirmed) Active Benign essential Active hypertension(Confirm ed)1 Chronic diastolic Active heart failure(Confirmed) 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 2Data migrated from [employer] on 11/20/14. 3Data migrated from [employer] on 11/20/14. 4Blood, 01/19/2017 5Problem added by Discern Expert. Allergies, Adverse Reactions, Alerts Substance Reaction Severity Status clindamycin Active hydrALAZINE1 Active 1Data migrated from [employer] on 10/22/14. Originally documented as HYDRALAZINE HCL. dyspnea Medications acetaminophen 650 mg, Route: PO, Drug form: TAB, ONCE, Dosing Weight 125, kg, Start date: 12/23 03/10 12:39:00 CDT, Stop date: 01/19/17 12:39:00 CDT Start Date: 01/19/17 Stop Date: 01/19/17 Status: Completed acetaminophen 500 mg oral tablet 1,000 mg=2 tab, PO, Q6H, 0 Refill(s) Start Date: 01/31/17 Status: Ordered acetaminophen-hydrocodone 325 mg-5 mg oral tablet 1 tab, Route: PO, Drug Form: TAB, Dosing Weight 125, kg, Q6H, PRN Pain Score 1-3 , Start date: 01/30/17 14:37:00 CDT, Duration: 30 day, Stop date: 03/01/17 14:36 :00 CDT Start Date: 01/30/17 Stop Date: 01/30/17 Status: Discontinued AMIODarone 400 mg, 2 tab, Route: PO, Drug form: TAB, BID, Dosing Weight 125, kg, Start date : 01/28/17 9:00:00 CDT, Duration: 12 day, Stop date: 02/08/17 17:00:00 CDT Notes: (Same as: Cordarone) Start Date: 01/28/17 Stop Date: 01/31/17 Status: Discontinued AMIODarone + D5W 100 mL 150 mg, 3 mL, Route: IVPB, ONCE, Dosing Weight 125, kg, Priority: STAT, Start da te: 01/26/17 20:14:00 CDT, Stop date: 01/26/17 20:14:00 CDT Notes: Central administration only for concentrations > 2 mg/ml."Recommendation: Use an in-line filter during administration for continuous infusions to reduce the incidence of phlebitis"(Same as Codarone) MEDICATION WASTE Product Size: 150 mgProduct Wasted: ___ mg Start Date: 01/26/17 Stop Date: 01/26/17 Status: Completed AMIODarone 200 mg oral tablet 400 mg=2 tab, PO, BID, 0 Refill(s) Start Date: 01/31/17 Status: Ordered AMIODarone INJ 900 mg + D5W 500 ml INJ 482 mL 900 mg, 18 mL, Rate: 1 mg/min for 6 hours, then reduce to 0.5 mg/min, Dosing Nic ght 125, kg, Route: IV, Total Volume: 500, Start Date: 01/26/17 20:15:00 CDT, Du ration: 30 day, Stop date: 02/25/17 20:14:00 CDT, Replace Every: 24 hr Notes: Central administration only for concentration > 2 mg/ml. Use Glass Bottle or Non PVC Bag"Use 0.22 micron in-line filter" MEDICATION WASTE Product Size: 900 mgProduct Wasted: ___ mg Start Date: 01/26/17 Stop Date: 01/28/17 Status: Discontinued amLODIPine 5 mg, 1 tab, Route: PO, Drug form: TAB, Daily, Dosing Weight 125, kg, Start date : 01/21/17 17:33:00 CDT, Duration: 30 day, Stop date: 02/20/17 9:00:00 CDT Notes: (Same as: Nita) Start Date: 01/21/17 Stop Date: 01/22/17 Status: Discontinued amLODIPine 5 mg, 1 tab, Route: PO, Drug form: TAB, ONCE, Dosing Weight 125, kg, Start date: 01/29/17 22:45:00 CDT, Stop date: 01/29/17 22:45:00 CDT Notes: (Same as: Nita) Start Date: 01/29/17 Stop Date: 01/29/17 Status: Completed amLODIPine 5 mg, 1 tab, Route: PO, Drug form: TAB, Daily, Dosing Weight 125, kg, Start date : 01/30/17 9:00:00 CDT, Duration: 30 day, Stop date: 02/28/17 9:00:00 CDT Notes: (Same as: Nita) Start Date: 01/30/17 Stop Date: 01/31/17 Status: Discontinued amLODIPine 5 mg oral tablet 5 mg=1 tab, PO, Daily, 0 Refill(s) Start Date: 01/31/17 Status: Ordered aspirin 325 mg tablet, enteric coated 325 mg=1 tab, PO, Daily, 0 Refill(s) Start Date: 01/31/17 Status: Ordered aspirin 325 mg tablet, enteric coated 325 mg, 1 tab, Route: PO, Drug form: ECTAB, Daily, Dosing Weight 125, kg, Start date: 01/20/17 9:00:00 CDT, Duration: 30 day, Stop date: 02/18/17 9:00:00 CDT Notes: (Do Not Crush) Do not crush or chew. Start Date: 01/20/17 Stop Date: 01/31/17 Status: Discontinued Cardura 4 mg, 2 tab, Route: PO, Drug form: TAB, Daily, Dosing Weight 125, kg, Priority: NOW, Start date: 01/25/17 9:12:00 CDT, Duration: 30 day, Stop date: 02/24/17 9:0 0:00 CDT Notes: (Same as: Jason) Start Date: 01/25/17 Stop Date: 01/31/17 Status: Discontinued carvedilol 25 mg, 1 tab, Route: PO, Drug form: TAB, BID, Dosing Weight 125, kg, Start date: 01/22/17 0:06:00 CDT, Duration: 30 day, Stop date: 02/20/17 17:00:00 CDT Notes: Give with food. (Same As: Coreg) Start Date: 01/22/17 Stop Date: 01/22/17 Status: Discontinued carvedilol 25 mg, 1 tab, Route: PO, Drug form: TAB, Daily, Dosing Weight 125, kg, Start ching e: 01/20/17 9:00:00 CDT, Duration: 30 day, Stop date: 02/18/17 9:00:00 CDT Notes: Give with food. (Same As: Coreg) Start Date: 01/20/17 Stop Date: 01/22/17 Status: Discontinued cefepime 1 gm, Route: IV, Drug form: INJ, Q12H, Dosing Weight 125, kg, Start date: 21:00:00 CDT, Duration: 7 day, Stop date: 01/26/17 9:00:00 CDT, ABX Indicatio n: Skin/Soft Tissue Infection Notes: (Same As: Maxipime) MEDICATION WASTE Product Size: 1000 mgProduc t Wasted: ___ mg Start Date: 01/19/17 Stop Date: 01/22/17 Status: Discontinued cefepime 1 gm, Route: IVPB, ONCE, Dosing Weight 125, kg, Priority: STAT, Start date: 12/23 03/10 12:39:00 CDT, Duration: 1 doses or times, Stop date: 01/19/17 12:39:00 CDT, ABX Indication: Skin/Soft Tissue Infection Start Date: 01/19/17 Stop Date: 01/19/17 Status: Completed cholecalciferol 2000 intl units oral capsule 2,000 IntlUnit=1 cap, PO, Daily, 0 Refill(s) Start Date: 01/31/17 Status: Ordered cloNIDine 0.1 mg oral tablet 0.1 mg, 1 tab, Route: PO, Drug form: TAB, TID, Dosing Weight 125, kg, Start date : 01/19/17 17:00:00 CDT, Duration: 30 day, Stop date: 02/18/17 13:00:00 CDT Notes: (Same As: Catapres) Start Date: 01/19/17 Stop Date: 01/20/17 Status: Discontinued Crestor 20 mg, 2 tab, Route: PO, Drug form: TAB, Bedtime, Dosing Weight 125, kg, Start d ate: 01/19/17 21:00:00 CDT, Duration: 30 day, Stop date: 02/17/17 21:00:00 CDT Notes: (Same As: Crestor) Start Date: 01/19/17 Stop Date: 01/31/17 Status: Discontinued cyanocobalamin 2,000 microgram, 2 tab, Route: PO, Drug form: TAB, Daily, Dosing Weight 125, kg, Start date: 01/20/17 9:00:00 CDT, Duration: 30 day, Stop date: 02/18/17 9:00:00 CDT Notes: (Same As: Vitamin B-12) Start Date: 01/20/17 Stop Date: 01/20/17 Status: Discontinued cyanocobalamin 1000 mcg sublingual tablet 2,000 microgram=2 tab, PO, Daily, 0 Refill(s) Start Date: 01/31/17 Status: Ordered diltiazem 90 mg, 3 tab, Route: PO, Drug form: TAB, Q8H, Dosing Weight 125, kg, Priority: S TAT, Start date: 01/24/17 2:36:00 CDT, Stop date: 02/23/17 0:00:00 CDT Notes: (Same as: Cardizem) Before meals Start Date: 01/24/17 Stop Date: 01/26/17 Status: Discontinued diltiazem 12 hour extended release 60 mg, 1 cap, Route: PO, Drug form: ERCAP, Q12H, Dosing Weight 125, kg, Start da te: 01/22/17 18:35:00 CDT, Duration: 30 day, Stop date: 02/21/17 9:00:00 CDT Notes: (Same as: Cardizem SR) Before meals. DO NOT CRUSH. Give twice daily. Start Date: 01/22/17 Stop Date: 01/24/17 Status: Discontinued diltiazem 25 mg/5 ml VL 125 mg + sodium chloride 0.9% INJ 100 mL 125 mg, 25 mL, Rate: Titrate, Start Dose: 15 mg/hr, Titration: 5 mg/hr every 30 min, Goal(s): Maintain HR < 100, Max Dose: 15 mg/hr, Route: IV, Dosing Weight 125 kg, Total Volume: 125, Start date: 01/26/17 15:20:00 CDT, Duration: 30 day, Stop date: .. Notes: (Same as: Patt) Start Date: 01/26/17 Stop Date: 01/26/17 Status: Discontinued doxazosin 4 mg, 1 tab, Route: PO, Drug form: TAB, Daily, Dosing Weight 125, kg, Start date : 01/25/17 9:00:00 CDT, Duration: 30 day, Stop date: 02/23/17 9:00:00 CDT Notes: (Same as: Jason) Start Date: 01/25/17 Stop Date: 01/25/17 Status: Discontinued doxazosin 4 mg, 1 tab, Route: PO, Drug form: TAB, ONCE, Dosing Weight 125, kg, Start date: 01/25/17 1:17:00 CDT, Stop date: 01/25/17 1:17:00 CDT Notes: (Same as: Jason) Start Date: 01/25/17 Stop Date: 01/25/17 Status: Completed doxazosin 2 mg oral tablet 4 mg=2 tab, PO, Daily, 0 Refill(s) Start Date: 01/31/17 Status: Ordered DULoxetine 60 mg, 1 cap, Route: PO, Drug form: DRC, Daily, Dosing Weight 125, kg, Start ching e: 01/20/17 9:00:00 CDT, Duration: 30 day, Stop date: 02/18/17 9:00:00 CDT Notes: (Same as: Star) (Do Not Crush) Start Date: 01/20/17 Stop Date: 01/31/17 Status: Discontinued DULoxetine 60 mg oral delayed release capsule 60 mg=1 cap, PO, Daily, 0 Refill(s) Start Date: 01/31/17 Status: Ordered Flagyl 500 mg, 100 mL, Route: IV, Drug form: INJ, ABXQ8H, Dosing Weight 125, kg, Start date: 01/19/17 17:00:00 CDT, Stop date: 01/26/17 17:00:00 CDT, ABX Indication: S kin/Soft Tissue Infection Notes: (Same as: Flagyl) Avoid alcohol. Start Date: 01/19/17 Stop Date: 01/22/17 Status: Discontinued furosemide 20 mg oral tablet 20 mg=1 tab, PO, Daily, # 30 tab, 0 Refill(s) Start Date: 01/19/17 Stop Date: 01/31/17 Status: Discontinued heparin 5,000 unit, 1 mL, Route: SUB-Q, Drug form: INJ, Q8H, Dosing Weight 125, kg, Star t date: 01/20/17 8:00:00 CDT, Stop date: 02/19/17 0:00:00 CDT Notes: porcine heparin Start Date: 01/20/17 Stop Date: 01/28/17 Status: Discontinued heparin 5,000 unit, 1 mL, Route: SUB-Q, Drug form: INJ, Q8H, Dosing Weight 125, kg, Star t date: 01/20/17 0:00:00 CDT, Duration: 30 day, Stop date: 02/18/17 16:00:00 CDT Notes: porcine heparin Start Date: 01/20/17 Stop Date: 01/19/17 Status: Canceled Heparin - one time bolus for DVT/PE 6,400 unit, 6.4 mL, Route: IVP, Drug form: INJ, ONCE, Dosing Weight 125, kg, Farhana ority: STAT, Start date: 01/19/17 16:56:00 CDT, Stop date: 01/19/17 16:56:00 CDT Start Date: 01/19/17 Stop Date: 01/19/17 Status: Discontinued Heparin 40 unit/kg Bolus (Heparin Dosing Weight) Route: IVP, PRN, 4,200 unit, 4.2 mL, Drug form: INJ, PRN, Heparin Protocol, Star t date: 01/19/17 16:56:00 CDT Stop date: 02/18/17 16:55:00 CDT, 30 day Start Date: 01/19/17 Stop Date: 01/19/17 Status: Discontinued Heparin 80 unit/kg Bolus (Heparin Dosing Weight) Route: IVP, PRN, 8,400 unit, 8.4 mL, Drug form: INJ, PRN, Heparin Protocol, Star t date: 01/19/17 16:56:00 CDT Stop date: 02/18/17 16:55:00 CDT, 30 day Start Date: 01/19/17 Stop Date: 01/19/17 Status: Discontinued heparin additive 25,000 unit [14 unit/kg/hr] + Premix Diluent Dextrose 5% 500 mL 500 mL, Rate: 35 ml/hr, Infuse over: 14.3 hr, Route: IV, Dosing Weight 125 kg, T otal Volume: 500 mL, Start date: 01/28/17 13:46:00 CDT, Duration: 30 day, Stop d ate: 02/27/17 13:45:00 CDT Start Date: 01/28/17 Stop Date: 01/28/17 Status: Discontinued heparin additive 25,000 unit [14 unit/kg/hr] + Premix Diluent Dextrose 5% 500 mL 500 mL, Rate: 35 ml/hr, Infuse over: 14.3 hr, Route: IV, Dosing Weight 125 kg, T otal Volume: 500 mL, Start date: 01/28/17 14:03:00 CDT, Duration: 30 day, Stop d ate: 02/27/17 14:02:00 CDT Start Date: 01/28/17 Stop Date: 01/28/17 Status: Discontinued heparin additive 25,000 unit [14 unit/kg/hr] + Premix Diluent Dextrose 5% 500 mL 500 mL, Rate: 29.36 ml/hr, Infuse over: 17 hr, Route: IV, Dosing Weight 104.84 k g, Total Volume: 500 mL, Start date: 01/28/17 14:08:00 CDT, Duration: 30 day, St op date: 02/27/17 14:07:00 CDT Start Date: 01/28/17 Stop Date: 01/31/17 Status: Discontinued heparin additive 25,000 unit [18 unit/kg/hr] + Premix Diluent Dextrose 5% 500 mL 500 mL, Rate: 37.74 ml/hr, Infuse over: 13.2 hr, Route: IV, Dosing Weight 104.84 kg, Total Volume: 500 mL, Start date: 01/19/17 16:56:00 CDT, Duration: 30 day, Stop date: 02/18/17 16:55:00 CDT Start Date: 01/19/17 Stop Date: 01/19/17 Status: Discontinued HumaLOG KwikPen (Concentrated) 36 units, SUB-Q, Before Dinner, 0 Refill(s) Start Date: 01/19/17 Stop Date: 01/31/17 Status: Discontinued HumaLOG KwikPen (Concentrated) 30 units, SUB-Q, Before Lunch, 0 Refill(s) Start Date: 01/19/17 Stop Date: 01/31/17 Status: Discontinued insulin aspart 15 unit, SUB-Q, TID-Before Meals, 0 Refill(s) Start Date: 01/31/17 Status: Ordered insulin aspart 15 unit, 0.15 mL, Route: SUB-Q, Drug form: SOLN, TID-Before Meals, Start date: 0 01/20/17 7:30:00 CDT, Stop date: 02/18/17 16:30:00 CDT Notes: Roll in palms of hands gently; Do not shake vigorously. (Same as: Palomo Lopez)"single patient use only"WASTE: F/P - Black; E - Municipal Trash Bin Stable f or 28 days at room temperature.Expires in days from Date Start Date: 01/20/17 Stop Date: 01/20/17 Status: Discontinued insulin aspart 15 unit, 0.15 mL, Route: SUB-Q, Drug form: SOLN, TID-Before Meals, Priority: NOW , Start date: 01/20/17 9:28:00 CDT, Duration: 30 day, Stop date: 02/19/17 7:30:0 0 CDT Notes: Roll in palms of hands gently; Do not shake vigorously. (Same as: Palomo Lopez)"single patient use only"WASTE: F/P - Black; E - Municipal Trash Bin Stable f or 28 days at room temperature.Expires in days from Date Start Date: 01/20/17 Stop Date: 01/31/17 Status: Discontinued insulin lispro 30 unit, Route: SUB-Q, Drug form: SOLN, TID-Before Meals, Dosing Weight 125, kg, Start date: 01/20/17 7:30:00 CDT, Duration: 30 day, Stop date: 02/18/17 16:30:00 CDT Start Date: 01/20/17 Stop Date: 01/19/17 Status: Deleted Isolyte S (PH 7.4) 1000 mL 1,000 mL 1,000 mL, Rate: 125 ml/hr, Infuse over: 8 hr, Route: IV, Dosing Weight 125 kg, T otal Volume: 1,000, Start date: 01/20/17 6:52:00 CDT, Duration: 30 day, Stop ching e: 02/19/17 6:51:00 CDT Notes: (Same as: Isolyte S PH 7.4) Start Date: 01/20/17 Stop Date: 01/20/17 Status: Discontinued Lactated Ringers Injection IV (Lactated Ringers (Bolus) IV) 3,750 mL, 2,000 ml/hr, Route: IV, ONCE, Priority: STAT, Dosing Weight 125 kg, St art date: 01/19/17 12:39:00 CDT, Duration: 1 doses or times, Stop date: 01/19/17 12:39:00 CDT Start Date: 01/19/17 Stop Date: 01/19/17 Status: Completed Lantus 100 units/mL 80 unit, 0.8 mL, Route: SUB-Q, Drug form: PEYTON MILLER (Insulin), Dosing Weight 125 , kg, Start date: 01/20/17 7:30:00 CDT, Duration: 30 day, Stop date: 02/18/17 7: 30:00 CDT Notes: (Same as: Lantus)Do not hold insulin without contacting prescriberWASTE: F/P - Black; E - Municipal Trash Bin "single patient use only" Start Date: 01/20/17 Stop Date: 01/20/17 Status: Discontinued Lantus 100 units/mL 40 unit, 0.4 mL, Route: SUB-Q, Drug form: SOLN, Q12H, Dosing Weight 125, kg, Sta rt date: 01/20/17 9:00:00 CDT, Stop date: 02/18/17 21:00:00 CDT Notes: (Same as: Lantus)Do not hold insulin without contacting prescriberWASTE: F/P - Black; E - Municipal Trash Bin "single patient use only" Start Date: 01/20/17 Stop Date: 01/25/17 Status: Discontinued Lantus 100 units/mL 40 unit, 0.4 mL, Route: SUB-Q, Drug form: SOLN, Daily, Dosing Weight 125, kg, St art date: 01/26/17 9:00:00 CDT, Duration: 30 day, Stop date: 02/24/17 9:00:00 CD T Notes: (Same as: Lantus)Do not hold insulin without contacting prescriberWASTE: F/P - Black; E - Municipal Trash Bin "single patient use only" Start Date: 01/26/17 Stop Date: 01/31/17 Status: Discontinued Lantus 100 units/mL 40 unit, SUB-Q, Daily, 0 Refill(s) Start Date: 01/31/17 Status: Ordered lidocaine 1% 5 mL, Route: INTRADERM, Dosing Weight 125, kg, ONCALL, Start date: 01/30/17 9:00 :00 CDT, Duration: 30 day, Stop date: 03/01/17 8:59:00 CDT Start Date: 01/30/17 Stop Date: 01/30/17 Status: Completed Lopressor 100 mg, 2 tab, Route: PO, Drug form: TAB, Q12H, Dosing Weight 125, kg, Start ching e: 01/22/17 9:58:00 CDT, Duration: 30 day, Stop date: 02/21/17 9:00:00 CDT Notes: (Same as: Lopressor) Start Date: 01/22/17 Stop Date: 01/23/17 Status: Discontinued Lyrica 75 mg, 1 cap, Route: PO, Drug form: CAP, BID, Dosing Weight 125, kg, Start date: 01/20/17 9:00:00 CDT, Duration: 30 day, Stop date: 02/18/17 17:00:00 CDT Notes: (Same as: Lyrica) Start Date: 01/20/17 Stop Date: 01/31/17 Status: Discontinued magnesium citrate 1.745 g/30 mL oral liquid 300 ml, Route: PO, Drug Form: LIQ, Dosing Weight 125, kg, ONCE, Start date: 12/24 07/10 17:33:00 CDT, Stop date: 01/21/17 17:33:00 CDT Notes: (Same as: Citrate of Magnesia)Concentration: 1.745 gm / 30 mL Start Date: 01/21/17 Stop Date: 01/21/17 Status: Completed magnesium citrate 1.745 g/30 mL oral liquid 300 ml, Route: PO, Drug Form: LIQ, Dosing Weight 125, kg, ONCE, Start date: 07/10 19:56:00 CDT, Stop date: 01/22/17 19:56:00 CDT Notes: (Same as: Citrate of Magnesia)Concentration: 1.745 gm / 30 mL Start Date: 01/22/17 Stop Date: 01/23/17 Status: Completed metoprolol 5 mg/5 ml INJ 5 mg, 5 mL, Route: IVP, Drug form: INJ, Q8H, Dosing Weight 125, kg, PRN Tachycar emerald, Start date: 01/22/17 3:26:00 CDT, Duration: 30 day, Stop date: 02/21/17 3:2 5:00 CDT, HR>110/min Notes: (Same as: Lopressor)Push over 2 minutes Start Date: 01/22/17 Stop Date: 01/22/17 Status: Discontinued metoprolol 5 mg/5 ml INJ 5 mg, 5 mL, Route: IV, Drug form: INJ, ONCE, Dosing Weight 125, kg, Start date: 01/22/17 7:21:00 CDT, Stop date: 01/22/17 7:21:00 CDT Notes: (Same as: Lopressor)Push over 2 minutes Start Date: 01/22/17 Stop Date: 01/22/17 Status: Completed metoprolol tartrate 50 mg, 1 tab, Route: PO, Drug form: TAB, Q6H, Dosing Weight 125, kg, Start date: 01/26/17 18:45:00 CDT, Stop date: 02/25/17 18:00:00 CDT Notes: (Same as: Lopressor) Start Date: 01/26/17 Stop Date: 01/31/17 Status: Discontinued metoprolol tartrate 25 mg, Route: PO, Drug form: TAB, Q12H, Dosing Weight 125, kg, Start date: 01/21 9:00:00 CDT, Duration: 30 day, Stop date: 02/19/17 21:00:00 CDT Start Date: 01/21/17 Stop Date: 01/21/17 Status: Canceled metoprolol tartrate 100 mg, 1 tab, Route: PO, Drug form: TAB, Q12H, Dosing Weight 125, kg, Start ching e: 01/22/17 9:00:00 CDT, Duration: 30 day, Stop date: 02/20/17 21:00:00 CDT Notes: (Same as: Lopressor) Start Date: 01/22/17 Stop Date: 01/22/17 Status: Discontinued metoprolol tartrate 50 mg, 1 tab, Route: PO, Drug form: TAB, Q6H, Dosing Weight 125, kg, Start date: 01/27/17 0:00:00 CDT, Duration: 30 day, Stop date: 02/25/17 18:00:00 CDT Notes: (Same as: Lopressor) Start Date: 01/27/17 Stop Date: 01/26/17 Status: Canceled metoprolol tartrate 50 mg oral tablet 50 mg=1 tab, PO, Q6H, 0 Refill(s) Start Date: 01/31/17 Status: Ordered morphine Sulfate 4 mg, 1 mL, Route: IVP, Drug form: INJ, ONCE, Dosing Weight 125, kg, Priority: S TAT, Start date: 01/19/17 14:28:00 CDT, Stop date: 01/19/17 14:28:00 CDT Notes: (Same as:MORPhine Sulfate) Start Date: 01/19/17 Stop Date: 01/19/17 Status: Completed morphine Sulfate 4 mg, 1 mL, Route: IVP, Drug form: INJ, ONCE, Dosing Weight 125, kg, Priority: S TAT, Start date: 01/19/17 18:42:00 CDT, Stop date: 01/19/17 18:42:00 CDT Notes: (Same as:MORPhine Sulfate) Start Date: 01/19/17 Stop Date: 01/19/17 Status: Completed NIFEdipine 90 mg oral tablet, extended release 90 mg, 1 tab, Route: PO, Drug form: ERTAB, ONCE, Dosing Weight 125, kg, Start da te: 01/26/17 21:00:00 CDT, Stop date: 01/26/17 21:00:00 CDT Notes: (Same as: Adalat CC,Procardia XL)"Do Not Crush" "Avoid grapefruit and gr apefruit juice" Start Date: 01/26/17 Stop Date: 01/26/17 Status: Completed [place] 5/325 oral tablet 1 tab, Route: PO, Drug Form: TAB, Dosing Weight 125, kg, Q4H, PRN Pain Score 6-1 0, Start date: 01/19/17 17:01:00 CDT, Duration: 30 day, Stop date: 02/18/17 17:0 0:00 CDT Notes: (Same as: [place] 325/5) Do not exceed 4gm/day of acetaminophen. Start Date: 01/19/17 Stop Date: 01/20/17 Status: Discontinued NS (Bolus) IV 500 mL, 500 ml/hr, Infuse Over: 1 hr, Route: IV, 500, Drug form: INJ, ONCE, Prio rity: STAT, Dosing Weight 125 kg, Start date: 01/26/17 20:11:00 CDT, Duration: 1 doses or times, Stop date: 01/26/17 20:11:00 CDT Start Date: 01/26/17 Stop Date: 01/26/17 Status: Completed pantoprazole 40 mg, 1 tab, Route: PO, Drug form: ECTAB, Before Breakfast, Dosing Weight 125, kg, Start date: 01/21/17 7:30:00 CDT, Duration: 30 day, Stop date: 02/19/17 7:30 :00 CDT Notes: Tablet should not be chewed or crushed.(Same as: Protonix) Start Date: 01/21/17 Stop Date: 01/31/17 Status: Discontinued pantoprazole 40 mg oral enteric coated tablet 40 mg=1 tab, PO, Before Breakfast, 0 Refill(s) Start Date: 01/31/17 Status: Ordered pantoprazole 80 mg + sodium chloride 0.9% INJ 100 mL 100 mL, Rate: 10 ml/hr, Infuse over: 10 hr, Route: IVPB, Dosing Weight 125 kg, T otal Volume: 100, Infuse at 8 mg / hr for 72 hours for GI bleeding, Start date: 01/22/17 3:04:00 CDT, Stop date: 01/25/17 3:03:00 CDT Start Date: 01/22/17 Stop Date: 01/25/17 Status: Completed Plasma-Lyte A PH-7.4 1000 ml INJ 1,000 mL 1,000 mL, Rate: 125 ml/hr, Infuse over: 8 hr, Route: IV, Dosing Weight 125 kg, T otal Volume: 1,000, Start date: 01/19/17 14:51:00 CDT, Duration: 30 day, Stop da te: 02/18/17 14:50:00 CDT Notes: WASTE: F/P - Sink; E - Municipal Trash Bin Start Date: 01/19/17 Stop Date: 01/19/17 Status: Discontinued rosuvastatin 10 mg oral tablet 20 mg=2 tab, PO, Bedtime, 0 Refill(s) Start Date: 01/31/17 Status: Ordered Saline Flush 0.9% 10 mL, Route: IVP, Drug Form: INJ, Dosing Weight 125, kg, PRN, PRN Line Flush, S tart date: 01/19/17 12:30:00 CDT, Duration: 30 day, Stop date: 02/18/17 12:29:00 CDT Notes: Same as: BD Posiflush Sterile Start Date: 01/19/17 Stop Date: 01/20/17 Status: Discontinued Saline Flush 0.9% 10 mL, Route: IVP, Drug Form: INJ, Dosing Weight 125, kg, PRN, PRN Line Flush, S tart date: 01/19/17 12:39:00 CDT, Duration: 30 day, Stop date: 02/18/17 12:38:00 CDT Notes: Same as: BD Posiflush Sterile Start Date: 01/19/17 Stop Date: 01/31/17 Status: Discontinued Saline Flush 0.9% 10 mL, Route: IVP, Drug Form: INJ, Dosing Weight 125, kg, PRN, PRN Line Flush, S tart date: 01/30/17 8:32:00 CDT, Duration: 30 day, Stop date: 03/01/17 8:31:00 C DT Notes: (Same as: BD Posiflush) Start Date: 01/30/17 Stop Date: 01/31/17 Status: Discontinued Saline Flush 0.9% 10 mL, Route: IVP, Drug Form: INJ, Dosing Weight 125, kg, Q8H, Start date: 01/30 16:00:00 CDT, Duration: 30 day, Stop date: 03/01/17 8:00:00 CDT Notes: (Same as: BD Posiflush) Start Date: 01/30/17 Stop Date: 01/31/17 Status: Discontinued tamsulosin 0.4 mg, 1 cap, Route: PO, Drug form: CAP, Daily, Dosing Weight 125, kg, Start da te: 01/20/17 9:00:00 CDT, Duration: 30 day, Stop date: 02/18/17 9:00:00 CDT Notes: (Same As: Flomax) "Do Not Crush" Start Date: 01/20/17 Stop Date: 01/31/17 Status: Discontinued tamsulosin 0.4 mg oral capsule 0.4 mg=1 cap, PO, Daily, 0 Refill(s) Start Date: 01/31/17 Status: Ordered tramadol 50 mg oral tablet 50 mg=1 tab, PO, Q6H, PRN Pain, # 40 tab, 0 Refill(s) Start Date: 01/19/17 Stop Date: 01/31/17 Status: Discontinued tramadol 50 mg oral tablet 50 mg=1 tab, PO, Q6H, PRN Pain Score 1-5, 0 Refill(s) Start Date: 01/31/17 Status: Ordered tramadol 50 mg oral tablet 50 mg, 1 tab, Route: PO, Drug form: TAB, Q6H, Dosing Weight 125, kg, PRN Pain Sc ore 1-5, Start date: 01/19/17 17:01:00 CDT, Stop date: 02/18/17 17:00:00 CDT Notes: Not to exceed 400mg/day. (Same As: Ultram) Start Date: 01/19/17 Stop Date: 01/31/17 Status: Discontinued Tylenol 1,000 mg, 2 tab, Route: PO, Drug form: TAB, Q6H, Dosing Weight 125, kg, Start da te: 01/20/17 12:00:00 CDT, Duration: 30 day, Stop date: 02/19/17 6:00:00 CDT Notes: Max acetaminophen 4000 mg/day (4 gm/day). (Same as: Tylenol Extra Streng th) Start Date: 01/20/17 Stop Date: 01/31/17 Status: Discontinued Tylenol 1,000 mg, 2 tab, Route: PO, Drug form: TAB, ONCE, Dosing Weight 125, kg, Priorit y: STAT, Start date: 01/19/17 19:13:00 CDT, Stop date: 01/19/17 19:13:00 CDT Notes: Max acetaminophen 4000 mg/day (4 gm/day). (Same as: Tylenol Extra Streng th) Start Date: 01/19/17 Stop Date: 01/19/17 Status: Completed vancomycin 2 gm, Route: IVPB, ONCE, Dosing Weight 125, kg, TIME CRITICAL MEDICATION, Priori ty: STAT, Start date: 01/19/17 12:39:00 CDT, Duration: 1 doses or times, Stop da te: 01/19/17 12:39:00 CDT, ABX Indication: Skin/Soft Tissue Infection Start Date: 01/19/17 Stop Date: 01/19/17 Status: Completed vancomycin 1,000 mg, Route: IVPB, Drug form: INJ, [id number], Dosing Weight 125, kg, Start ching e: 01/21/17 9:00:00 CDT, Duration: 14 day, Stop date: 02/03/17 20:00:00 CDT, ABX Indication: Bacteremia Notes: TIME CRITICAL MEDICATION(Same As: Vancocin)Infusion rate< 1000 mg: infuse over 1 [id number] - 1500 mg: infuse over 1.5 [id number] - 2000 mg: infuse over 2 hours> 2001 mg: infuse over 2.5 hours MEDICATION WASTE Product Size: 1000 mgProduct Wasted: ___ mg Start Date: 01/21/17 Stop Date: 01/25/17 Status: Discontinued vancomycin + sodium chloride 0.9% INJ 150 mL 750 mg, Route: IVPB, [id number], Start date: 01/26/17 8:00:00 CDT, Duration: 30 day , Stop date: 02/24/17 21:00:00 CDT, ABX Indication: Bacteremia Notes: TIME CRITICAL MEDICATION(Same As: Vancocin)Infusion rate< 1000 mg: infuse over 1 [id number] - 1500 mg: infuse over 1.5 [id number] - 2000 mg: infuse over 2 hours> 2001 mg: infuse over 2.5 hours MEDICATION WASTE Product Size: 1000 mgProduct Wasted: ___ mg Start Date: 01/26/17 Stop Date: 01/31/17 Status: Discontinued vancomycin 750 mg/150 mL-NaCl 0.9% intravenous solution 750 mg, IV, Q12H, infused over 60 minutes, aim level 15-19, X 28 day, # 56 ea, 0 Refill(s), other Start Date: 01/31/17 Stop Date: 02/28/17 Status: Ordered Vitamin B12 2,000 microgram, 2 tab, Route: PO, Drug form: TAB, Daily, Dosing Weight 125, kg, Start date: 01/21/17 9:00:00 CDT, Duration: 30 day, Stop date: 02/19/17 9:00:00 CDT Notes: (Same As: Vitamin B-12) Start Date: 01/21/17 Stop Date: 01/31/17 Status: Discontinued Vitamin D3 2,000 IntlUnit, 1 cap, Route: PO, Drug form: CAP, Daily, Dosing Weight 125, kg, Priority: NOW, Start date: 01/20/17 9:56:00 CDT, Duration: 30 day, Stop date: 9:00:00 CDT Notes: Same as: Vitamin D3 Start Date: 01/20/17 Stop Date: 01/31/17 Status: Discontinued Vitamin D3 2000 intl units oral tablet 2,000 IntlUnit, 1 tab, Route: PO, Drug form: TAB, Daily, Dosing Weight 125, kg, Start date: 01/20/17 9:00:00 CDT, Duration: 30 day, Stop date: 02/18/17 9:00:00 CDT Notes: (Same as: Vitamin D3) Start Date: 01/20/17 Stop Date: 01/20/17 Status: Discontinued Zofran 4 mg, 2 mL, Route: IVP, Drug form: INJ, Q8H, Dosing Weight 125, kg, PRN Nausea, Start date: 01/22/17 5:24:00 CDT, Duration: 30 day, Stop date: 02/21/17 5:23:00 CDT Notes: (Same as: Jaye) MEDICATION WASTE Product Size: 4 mgProduct Was tu: ___ mg Start Date: 01/22/17 Stop Date: 01/26/17 Status: Discontinued Results BLOOD BANK RESULTS 1 2 3 Most recent to oldest [Reference Range]: O NEG *Unknown* (01/19/17 1:15 PM) ABO/Rh Negative (01/19/17 1:15 PM) Antibody Scrn ELECTROLYTES 1 2 3 Most recent to oldest [Reference Range]: 140 mEq/L (01/31/17 12:32 AM) 139 mEq/L (01/30/17 4:39 AM) 137 mEq/L (01/29/17 4:14 AM) Sodium Lvl [135-145 mEq/L] 4.4 mEq/L (01/31/17 12:32 AM) 4.2 mEq/L (01/30/17 4:39 AM) 4.1 mEq/L (01/29/17 4:14 AM) Potassium Lvl [3.5-5.1 mEq/L] 105 mEq/L (01/31/17 12:32 AM) 105 mEq/L (01/30/17 4:39 AM) 104 mEq/L (01/29/17 4:14 AM) Chloride Lvl [95-109 mEq/L] 25 mEq/L (01/31/17 12:32 AM) 26 mEq/L (01/30/17 4:39 AM) 26 mEq/L (01/29/17 4:14 AM) CO2 [24-32 mEq/L] 14.4 mEq/L (01/31/17 12:32 AM) 12.2 mEq/L (01/30/17 4:39 AM) 11.1 mEq/L (01/29/17 4:14 AM) AGAP [10.0-20.0 mEq/L] CHEM PANEL 1 2 3 Most recent to oldest [Reference Range]: 1.47 mg/dL *HI* (01/31/17 12:32 AM) 1.64 mg/dL *HI* (01/30/17 4:39 AM) 1.46 mg/dL *HI* (01/29/17 4:14 AM) Creatinine Lvl [0.50-1.40 mg/dL] 49 mL/min/1.73m2 1 *NA* (01/31/17 12:32 AM) 43 mL/min/1.73m2 2 *NA* (01/30/17 4:39 AM) 49 mL/min/1.73m2 3 *NA* (01/29/17 4:14 AM) eGFR 23 mg/dL *HI* (01/31/17 12:32 AM) 30 mg/dL *HI* (01/30/17 4:39 AM) 32 mg/dL *HI* (01/29/17 4:14 AM) BUN [7-22 mg/dL] 30 *HI* (01/21/17 8:51 AM) 23 (01/19/17 12:48 PM) B/C Ratio [6-25] 114 mg/dL *HI* (01/31/17 12:32 AM) 106 mg/dL *HI* (01/30/17 4:39 AM) 118 mg/dL *HI* (01/29/17 4:14 AM) Glucose Lvl [70-99 mg/dL] 5.9 g/dL *LOW* (01/21/17 8:51 AM) 8.1 g/dL (01/19/17 12:48 PM) Total Protein [6.4-8.4 g/dL] 2.5 g/dL *LOW* (01/21/17 8:51 AM) 3.5 g/dL (01/19/17 12:48 PM) Albumin Lvl [3.5-5.0 g/dL] 3.4 g/dL (01/21/17 8:51 AM) 4.6 g/dL *HI* (01/19/17 12:48 PM) Globulin [2.7-4.2 g/dL] 0.7 (01/21/17 8:51 AM) 0.8 (01/19/17 12:48 PM) A/G Ratio [0.7-1.6] 10.4 mg/dL (01/31/17 12:32 AM) 10.0 mg/dL (01/30/17 4:39 AM) 10.6 mg/dL *HI* (01/29/17 4:14 AM) Calcium Lvl [8.5-10.5 mg/dL] 2.9 mg/dL (01/31/17 12:32 AM) 2.8 mg/dL (01/30/17 4:39 AM) 3.0 mg/dL (01/29/17 4:14 AM) Phosphorus [2.5-4.5 mg/dL] 1.8 mg/dL (01/31/17 12:32 AM) 1.8 mg/dL (01/30/17 4:39 AM) 1.8 mg/dL (01/29/17 4:14 AM) Magnesium Lvl [1.8-2.4 mg/dL] 29 unit/L (01/21/17 8:51 AM) 29 unit/L (01/19/17 12:48 PM) ALT [0-65 unit/L] 24 unit/L (01/21/17 8:51 AM) 35 unit/L (01/19/17 12:48 PM) AST [0-37 unit/L] 89 unit/L (01/21/17 8:51 AM) 108 unit/L (01/19/17 12:48 PM) Alk Phos [39-136 unit/L] 0.4 mg/dL (01/21/17 8:51 AM) 1.0 mg/dL (01/19/17 12:48 PM) Bili Total [0.2-1.3 mg/dL] 1.2 mMol/L (01/26/17 6:10 PM) 1.2 mMol/L (01/25/17 12:12 AM) 0.8 mMol/L (01/24/17 12:52 AM) Lactic Acid Lvl [0.5-2.2 mMol/L] 6.45 ng/mL 4 *CRIT* (01/19/17 12:48 PM) Procalcitonin Lvl [0.00-0.10 ng/mL] 1Result Comment: The eGFR is calculated using [...] be mul tiplied by the estimated BMI. 2Result Comment: The eGFR is calculated using the [...] be mul tiplied by the estimated BMI. 3Result Comment: The eGFR is calculated using the [...] be mul tiplied by the estimated BMI. 4Result Comment: CRITICAL RESULT CALLED TO WEN GOETZ (O Cade) AT 01/19/2017 16:38 BY SXP. READ BACK OK. CARDIAC ENZYMES 1 2 3 Most recent to oldest [Reference Range]: 37 unit/L (01/26/17 6:10 PM) 40 unit/L (01/24/17 12:52 AM) 434 unit/L *HI* (01/19/17 12:48 PM) Total CK [12-191 unit/L] 1.9 ng/mL (01/19/17 12:48 PM) CK MB [0.5-3.6 ng/mL] 0.4 (01/19/17 12:48 PM) CK MB Index [0.0-2.5] <0.010 ng/mL (01/26/17 6:10 PM) Troponin-T [0.000-0.100 ng/mL] 0.04 ng/mL (01/19/17 12:48 PM) Troponin-I [0.00-0.40 ng/mL] SPECIAL CHEMISTRY 1 2 3 Most recent to oldest [Reference Range]: 7.1 % *HI* (01/20/17 12:57 AM) Hgb A1C [<=5.6 %] PARATHYROID PROFILE 1 2 3 Most recent to oldest [Reference Range]: 1.47 mMol/L *HI* (01/26/17 6:10 PM) Ca Ion WB [1.05-1.25 mMol/L] 1.48 mMol/L *HI* (01/26/17 6:10 PM) Ca Norm WB [1.05-1.25 mMol/L] TOXICOLOGY 1 2 3 Most recent to oldest [Reference Range]: 0900 *NA* (01/29/17 9:07 AM) 1930 *NA* (01/28/17 5:54 AM) 1930 *NA* (01/25/17 8:09 PM) Vanco Tr TND 20.5 ug/ml *NA* (01/22/17 12:12 PM) 4.9 ug/ml *NA* (01/21/17 8:51 AM) Vanco Lvl 19.9 ug/ml *NA* (01/29/17 9:07 AM) 19.4 ug/ml *NA* (01/28/17 5:54 AM) 21.2 ug/ml *NA* (01/25/17 8:09 PM) Vanco Tr URINE AND STOOL 1 2 3 Most recent to oldest [Reference Range]: Clear (01/22/17 1:02 PM) Clear (01/19/17 1:21 PM) UA Turbidity [Clear] Yellow *NA* (01/22/17 1:02 PM) Yellow *NA* (01/19/17 1:21 PM) UA Color [Yellow] 5.5 (01/22/17 1:02 PM) UA pH [5.0-8.0] 5.5 (01/19/17 1:21 PM) UA pH [5.0-8.0] 1.011 (01/22/17 1:02 PM) UA Spec Grav [<=1.030] 1.015 (01/19/17 1:21 PM) UA Spec Grav [<=1.030] 300 mg/dL *ABN* (01/22/17 1:02 PM) UA Glucose [Negative mg/dL] Negative (01/19/17 1:21 PM) UA Glucose [Negative] Trace *ABN* (01/22/17 1:02 PM) Small *ABN* (01/19/17 1:21 PM) UA Blood [Negative] Negative mg/dL *NA* (01/22/17 1:02 PM) UA Ketones [Negative mg/dL] Negative *NA* (01/19/17 1:21 PM) UA Ketones [Negative] 50 mg/dL *ABN* (01/22/17 1:02 PM) 30 mg/dL *ABN* (01/19/17 1:21 PM) UA Protein [Negative mg/dL] <=1.0 mg/dL *NA* (01/22/17 1:02 PM) UA Urobilinogen [0.1-1.0 mg/dL] 0.2 EU/dL (01/19/17 1:21 PM) UA Urobilinogen [0.1-1.0 EU/dL] Negative *NA* (01/22/17 1:02 PM) Negative *NA* (01/19/17 1:21 PM) UA Bili [Negative] Negative (01/22/17 1:02 PM) Negative (01/19/17 1:21 PM) UA Leuk Est [Negative] Negative (01/22/17 1:02 PM) Negative (01/19/17 1:21 PM) UA Nitrite [Negative] <1 /HPF (01/22/17 1:02 PM) UA WBC [0-5 /HPF] 0-2 /HPF (01/19/17 1:21 PM) UA WBC [None Seen /HPF] <1 /HPF (01/22/17 1:02 PM) 0-2 /HPF (01/19/17 1:21 PM) UA RBC [0-2 /HPF] Occasional /HPF (01/19/17 1:21 PM) UA Bacteria [None Seen /HPF] None Seen *NA* (01/22/17 1:02 PM) UA Sq Epi Occasional /LPF (01/19/17 1:21 PM) UA Sq Epi [Few /LPF] Few /LPF *NA* (01/22/17 1:02 PM) UA Mucus [None Seen /LPF] IMMUNOLOGY 1 2 3 Most recent to oldest [Reference Range]: 296.0 mg/L *HI* (01/19/17 1:11 PM) CRP [<=2.9 mg/L] HEMATOLOGY 1 2 3 Most recent to oldest [Reference Range]: 9.9 K/CMM (01/31/17 12:32 AM) 10.6 K/CMM *HI* (01/30/17 4:39 AM) 9.9 K/CMM (01/29/17 4:14 AM) WBC [3.7-10.4 K/CMM] 4.02 M/CMM *LOW* (01/31/17 12:32 AM) 4.14 M/CMM *LOW* (01/30/17 4:39 AM) 4.02 M/CMM *LOW* (01/29/17 4:14 AM) RBC [4.70-6.10 M/CMM] 11.4 g/dL *LOW* (01/31/17 12:32 AM) 12.0 g/dL *LOW* (01/30/17 4:39 AM) 11.3 g/dL *LOW* (01/29/17 4:14 AM) Hgb [14.0-18.0 g/dL] 35.3 % *LOW* (01/31/17 12:32 AM) 36.1 % *LOW* (01/30/17 4:39 AM) 35.3 % *LOW* (01/29/17 4:14 AM) Hct [42.0-54.0 %] 87.7 fL (01/31/17 12:32 AM) 87.3 fL (01/30/17 4:39 AM) 87.7 fL (01/29/17 4:14 AM) MCV [80.0-94.0 fL] 28.3 pg (01/31/17 12:32 AM) 28.9 pg (01/30/17 4:39 AM) 28.0 pg (01/29/17 4:14 AM) MCH [27.0-31.0 pg] 32.3 g/dL (01/31/17 12:32 AM) 33.1 g/dL (01/30/17 4:39 AM) 31.9 g/dL *LOW* (01/29/17 4:14 AM) MCHC [32.0-36.0 g/dL] 19.0 % *HI* (01/31/17 12:32 AM) 19.2 % *HI* (01/30/17 4:39 AM) 19.5 % *HI* (01/29/17 4:14 AM) RDW [11.5-14.5 %] 282 K/CMM (01/31/17 12:32 AM) 258 K/CMM (01/30/17 4:39 AM) 277 K/CMM (01/29/17 4:14 AM) Platelet [133-450 K/CMM] 8.3 fL (01/31/17 12:32 AM) 8.2 fL (01/30/17 4:39 AM) 8.3 fL (01/29/17 4:14 AM) MPV [7.4-10.4 fL] 82.6 % *HI* (01/31/17 12:32 AM) 83.7 % *HI* (01/30/17 4:39 AM) 82.2 % *HI* (01/29/17 4:14 AM) Segs [45.0-75.0 %] 9.6 % *LOW* (01/31/17 12:32 AM) 9.3 % *LOW* (01/30/17 4:39 AM) 10.8 % *LOW* (01/29/17 4:14 AM) Lymphocytes [20.0-40.0 %] 4.9 % (01/31/17 12:32 AM) 4.5 % (01/30/17 4:39 AM) 4.7 % (01/29/17 4:14 AM) Monocytes [2.0-12.0 %] 1.6 % (01/31/17 12:32 AM) 1.5 % (01/30/17 4:39 AM) 1.5 % (01/29/17 4:14 AM) Eosinophils [0.0-4.0 %] 1.3 % *HI* (01/31/17 12:32 AM) 1.0 % (01/30/17 4:39 AM) 0.8 % (01/29/17 4:14 AM) Basophils [0.0-1.0 %] 8.2 K/CMM *HI* (01/31/17 12:32 AM) 8.9 K/CMM *HI* (01/30/17 4:39 AM) 8.1 K/CMM (01/29/17 4:14 AM) Segs-Bands # [1.5-8.1 K/CMM] 0.9 K/CMM *LOW* (01/31/17 12:32 AM) 1.0 K/CMM (01/30/17 4:39 AM) 1.1 K/CMM (01/29/17 4:14 AM) Lymphocytes # [1.0-5.5 K/CMM] 0.5 K/CMM (01/31/17 12:32 AM) 0.5 K/CMM (01/30/17 4:39 AM) 0.5 K/CMM (01/29/17 4:14 AM) Monocytes # [0.0-0.8 K/CMM] 0.2 K/CMM (01/31/17 12:32 AM) 0.2 K/CMM (01/30/17 4:39 AM) 0.1 K/CMM (01/29/17 4:14 AM) Eosinophils # [0.0-0.5 K/CMM] 0.1 K/CMM (01/31/17 12:32 AM) 0.1 K/CMM (01/30/17 4:39 AM) 0.1 K/CMM (01/29/17 4:14 AM) Basophils # [0.0-0.2 K/CMM] Normal (01/23/17 11:39 AM) Normal (01/21/17 8:51 AM) RBC Morph 1+ *ABN* (01/24/17 12:52 AM) Anisocyte [None Seen] Normal (01/24/17 12:52 AM) Normal (01/23/17 11:39 AM) Normal (01/21/17 8:51 AM) Plt Morph 50 mm/hr *HI* (01/19/17 1:11 PM) Sed Rate [0-15 mm/hr] 15.0 seconds *HI* (01/31/17 2:13 PM) 14.7 seconds (01/31/17 6:31 AM) 14.7 seconds (01/30/17 6:35 PM) PT [12.0-14.7 seconds] 1.16 (01/31/17 2:13 PM) 1.13 (01/31/17 6:31 AM) 1.13 (01/30/17 6:35 PM) INR [0.85-1.17] 69.0 seconds *HI* (01/31/17 2:13 PM) 57.7 seconds *HI* (01/31/17 6:31 AM) 73.7 seconds *HI* (01/31/17 12:32 AM) PTT [22.9-35.8 seconds] Immunizations Given and Recorded Vaccine Date Status Refusal Reason Hx influenza vaccine-unspecified1 04/26/14 Given 1Result Comment: done. Migrated from [facility] ; Data migrated from [employer] on 07/26/2015. Procedures Procedure Date Related Diagnosis Body Site Nephrectomy 11/22/02 Social History Social History Type Response Substance Abuse Use: None. Alcohol Never Smoking Status Former smoker; Type: Cigars; Exposure to Tobacco Smoke None; Cigarette Smoking Last 365 Days No; Reg Smoking Cessation Counseling No Assessment and Plan Extracted from: Title: Infection Admission H&P * Author: Brenton Wilcox MD Date: 01/31/17 Impression and Plan . Cellulitis B/L LE ? 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 Organism Site Date NEIGIngmh96/29/2017 Isolation Required: CONTACT Before isolation precautions may be discontinued, the following protocol must be followed and Infection Control should be notified: Organism Status Cultures Sites MRSA Off abx x 72hrs or 7 days if on dialysis and vancomycin x 2, 48 hrs apart Anterior nares, wounds, & any previous positive sites VRE Off abx x 72hrs or 7 days if on dialysis and renally-cleared drug active against patient's isolate x 2, 48 hrs apart Stool & any previous positive sites PCN-R or PCN-Intermediate [...] x2, 48 hrs apart Urine, stool, throat, & any previous positive sites Stenotrophomonas R to Trimethoprim-Sulfa Methoxazole (T/S) Off abx x 72hrs or 7 days if on dialysis and aminoglycoside x2, 48h apart Urine, stool, throat, & any previous positive sites 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 R to minocycline, rifampin, or vancomycin Off abx x 72hrs or 7 days if on dialysis and vancomycin x2, 48h apart Urine, stool, throat, & any previous positive sites Gram negative enterics: [...] and at least one should be an children's choir director specimen Sputum Varicella Maintain precautions until all [...] any questions. We can be reached at [phone]. Extracted from: Title: History and Physical Author: Elizabeth Nicole MD [...] coreg 25mg qdaily - no hx of OK. On aspirin 325mg daily Ordered: 6.Benign essential [...] - received LR in the ED - [id number] PO KCL now. 18. Anemia - no e/o acute blood loss - likely 2/2 CKD 19. GERD - asymptomatic Prophylaxis on heparin drip Disposition Pending stabilization; PT/OT requested. Likely will be able to go home when ready. Addendum by Marbella Nicole regimen- Vancomycin, cefepime and metronidazole Elizabeth NICHOLSON on 01/19/2017 17:02 CDT
--- OUTSIDE RECORDS SUMMARY | 2019-02-22 08:11 | XMS REPORT | Summary of Care ---
Author Author [facility] Primary Care [facility] Organization [facility] Primary Care [facility] Address Unknown Phone Unavailable Encounter RAFIA Valiente(FIN) [id number] Date(s): 05/14/17 - 05/15/17 [facility] Care [facility] [address], [address] [place] [address] [phone] Vital Signs No data available for this [...] # 30 cap, 0 Refill(s) Start Date: 05/14/17 Status: Ordered Results No data available for this section Immunizations Given and Recorded Vaccine Date Status Refusal Reason pneumococcal 13-valent vaccine 04/11/17 Given Hx influenza vaccine-unspecified1 04/26/14 Given 1Result Comment: done. Migrated from [employer] ; Data migrated from [employer] on 07/26/2015. Procedures Procedure Date Related Diagnosis Body Site Nephrectomy 11/22/02 Social History Social History Type Response Substance Abuse Use: None. Alcohol Never Smoking Status Former smoker; Type: Cigars; Exposure to Tobacco Smoke None; Cigarette Smoking Last 365 Days No; Reg Smoking Cessation Counseling No Assessment and Plan No data available for this section
--- OUTSIDE RECORDS SUMMARY | 2019-02-22 08:11 | XMS REPORT | Summary of Care ---
Author Author [facility] Primary Care [facility] Organization [facility] Care [facility] Address Unknown Phone Unavailable Encounter RAFIA Valiente(FIN) [id number] Date(s): 01/29/18 - 01/29/18 [facility] [address], [address] [place] [address] [phone] Discharge Disposition: Home or Self Care Attending Physician: Nic Paz MD Vital Signs Most recent to 1 oldest [Reference Range]: Height 198.12 cm (01/29/18 4:26 PM) Blood Pressure 138/83 mmHg [90-140/60-90 mmHg] (01/29/18 4:26 PM) Respiratory Rate 16 BRMIN [14-20 BRMIN] (01/29/18 4:26 PM) Peripheral Pulse 106 bpm Rate [60-100 bpm] *HI* (01/29/18 4:26 PM) Weight 117.727 kg (01/29/18 4:26 PM) Body Mass Index 29.99 m2 (01/29/18 4:26 PM) Problem List Condition Effective Dates Status [...] Coffee ground Active emesis(Confirmed) 1Data migrated from [employer] on 11/20/14. 2Data migrated from [employer] on 11/20/14. 3Data migrated from [employer] on 11/20/14. 4RLE Joint Aspirate - 08/01/2018 5Blood, 01/19/2017 6Problem added by [employer]cern [employer]. Allergies, Adverse Reactions, Alerts Substance Reaction Severity Status clindamycin Active hydrALAZINE1 Active 1Data migrated from [employer] on 10/22/14. Originally documented as HYDRALAZINE HCL. dyspnea Medications Humalog 25 unit, SUB-Q, TID-Before Meals, 0 Refill(s) Start Date: 01/29/18 Status: Ordered Iron 100 Plus 1 tab, PO, Daily, 0 Refill(s) Start Date: 01/29/18 Status: Ordered lisinopril 40 mg oral tablet 40 mg=1 tab, PO, BID, 0 Refill(s) Start Date: 01/29/18 Stop Date: 06/13/18 Status: Discontinued Results No data available for this section Immunizations Given and Recorded Vaccine Date Status Refusal Reason influenza virus vaccine, inactivated 04/08/18 Recorded pneumococcal 13-valent vaccine 04/11/17 Given Hx influenza vaccine-unspecified1 04/26/14 Given 1Result Comment: done. Migrated from [facility] ; Data migrated from [employer] on 07/26/2015. Procedures Procedure Date Related Diagnosis Body Site Status Colonoscopy 2013 Completed Nephrectomy 11/22/02 Completed Social History Social History Type Response Substance Abuse Use: None. Alcohol Never Smoking Status Former smoker; Type: Cigars; Exposure to Tobacco Smoke None; Cigarette Smoking Last 365 Days No; Reg Smoking Cessation Counseling No entered on: 07/28/18 Assessment and Plan No data available for this section
--- OUTSIDE RECORDS SUMMARY | 2019-02-22 08:12 | XMS REPORT | Summary of Care ---
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 Name Role Phone Nic Paz PCP Encounter HQ Jan_barbra([facility]) [id number] Date(s): 01/26/19 - 02/05/19 [facility] [address] [facility] provided by [employer] [place] [address]- Discharge Disposition: DC/DISC TO REHAB Attending Physician: Maria Fernanda Macedo MD Admitting Physician: Gabo Estrada MD Referring Physician: Gabo Estrada MD Vital Signs 1 2 3 Most recent to oldest [Reference Range]: 198.12 cm (01/26/19 3:30 PM) 198.12 cm (01/26/19 7:12 AM) 190.5 cm (01/23/19 4:45 PM) Height 97.6 DegF (02/05/19 11:27 AM) 98.2 DegF (02/05/19 9:35 AM) 98.5 DegF (02/05/19 3:30 AM) Temperature Oral [96.4-99.1 DegF] 114/63 mmHg (02/05/19 11:27 AM) 105/58 mmHg (02/05/19 9:35 AM) 105/65 mmHg (02/05/19 5:49 AM) Blood Pressure [90-140/60-90 mmHg] 18 BRMIN (02/05/19 11:27 AM) 18 BRMIN (02/05/19 9:35 AM) 18 BRMIN (02/05/19 3:30 AM) Respiratory Rate [14-20 BRMIN] 53 bpm *LOW* (02/05/19 11:27 AM) 66 bpm (02/05/19 9:35 AM) 50 bpm *LOW* (02/05/19 5:49 AM) Peripheral Pulse Rate [60-100 bpm] 95.007 kg (01/26/19 3:30 PM) 111.591 kg (01/26/19 7:12 AM) 100 kg (01/23/19 4:45 PM) Weight 24.2 m2 (01/26/19 3:30 PM) 28.43 m2 (01/26/19 7:12 AM) 27.56 m2 (01/23/19 4:45 PM) Body Mass Index Problem List Condition [...] HYDRALAZINE HCL. dyspnea Medications acetaminophen 650 mg, 2 tab, Route: PO, Drug form: TAB, Q6H, Dosing Weight 111.591, kg, PRN Pa in Score 1-3, Start date: 01/26/19 14:18:00 CDT, Duration: 30 day, Stop date: 14:17:00 CDT, 0 Notes: Do not exceed 4 gm/day. (Same as: Tylenol) Start Date: 01/26/19 Stop Date: 01/27/19 Status: Discontinued acetaminophen 650 mg, 1 supp, Route: WA, Drug form: SUPP, Q6H, Dosing Weight 95.007, kg, PRN P ain Score 1-3, Start date: 01/27/19 15:12:00 CDT, Duration: 30 day, Stop date: 0 02/26/19 15:11:00 CDT, 0 Start Date: 01/27/19 Stop Date: 02/05/19 Status: Discontinued acetaminophen 650 mg rectal suppository 650 mg=1 supp, WA, Q6H, PRN Pain Score 1-3, 0 Refill(s) Start Date: 02/04/19 Status: Ordered allopurinol 200 mg, 2 tab, Route: PO, Drug form: TAB, Daily, Dosing Weight 95.007, kg, Start date: 01/28/19 9:00:00 CDT, Duration: 30 day, Stop date: 02/26/19 9:00:00 CDT, 0 Notes: (Same as: Zyloprim) Start Date: 01/28/19 Stop Date: 02/05/19 Status: Discontinued allopurinol 100 mg oral tablet 200 mg=2 tab, PO, Daily, 0 Refill(s) Start Date: 02/04/19 Status: Ordered amLODIPine 10 mg oral tablet 10 mg=1 tab, PO, Daily, 0 Refill(s) Start Date: 02/04/19 Status: Ordered ANES flumazenil 0.2 mg, 2 mL, Route: IVP, Drug form: INJ, PRN, Dosing Weight 111.591, kg, PRN Be nzodiazepine Reversal, Initial dose, Start date: 01/26/19 8:23:00 CDT, Stop date : 01/27/19 8:22:00 CDT, 0 Notes: (Same as: Romazicon) Start Date: 01/26/19 Stop Date: 01/26/19 Status: Discontinued ANES flumazenil 0.2 mg, 2 mL, Route: IVP, Drug form: INJ, PRN, Dosing Weight 111.591, kg, PRN Be nzodiazepine Reversal, Initial dose, Start date: 01/26/19 11:40:00 CDT, Duration : 1 day, Stop date: 01/27/19 11:39:00 CDT, 0 Notes: (Same as: Romazicon) Start Date: 01/26/19 Stop Date: 01/26/19 Status: Discontinued ANES HYDROmorphone 0.5 mg, 0.25 mL, Route: IVP, Drug form: INJ, Q5Min, Dosing Weight 111.591, kg, P RN Pain Score 7-10, Start date: 01/26/19 11:40:00 CDT, Duration: 4 doses or time s, Stop date: Limited # of times, 0 Notes: Same as Dilaudid Start Date: 01/26/19 Stop Date: 01/26/19 Status: Discontinued ANES labetalol 10 mg, 2 mL, Route: IVP, Drug form: INJ, Q5Min, Dosing Weight 111.591, kg, PRN E levated BP, Start date: 01/26/19 8:23:00 CDT, Duration: 5 doses or times, Stop d ate: 01/27/19 0:00:00 CDT, 0 Start Date: 01/26/19 Stop Date: 01/26/19 Status: Discontinued ANES labetalol 10 mg, 2 mL, Route: IVP, Drug form: INJ, Q5Min, Dosing Weight 111.591, kg, PRN E levated BP, Start date: 01/26/19 11:40:00 CDT, Duration: 5 doses or times, Stop date: Limited # of times, 0 Start Date: 01/26/19 Stop Date: 01/26/19 Status: Discontinued ANES naloxone 0.4 mg, 1 mL, Route: IVP, Drug form: INJ, Q2MIN, Dosing Weight 111.591, kg, PRN Narcotic Reversal, Start date: 01/26/19 8:23:00 CDT, Duration: 8 doses or times, Stop date: 01/27/19 0:00:00 CDT, 0 Notes: Same as Narcan Start Date: 01/26/19 Stop Date: 01/26/19 Status: Discontinued ANES naloxone 0.4 mg, 1 mL, Route: IVP, Drug form: INJ, Q2MIN, Dosing Weight 111.591, kg, PRN Narcotic Reversal, Start date: 01/26/19 11:40:00 CDT, Duration: 8 doses or times , Stop date: Limited # of times, 0 Notes: Same as Narcan Start Date: 01/26/19 Stop Date: 01/26/19 Status: Discontinued ANES ondansetron 4 mg, 2 mL, Route: IVP, Drug form: INJ, ONCE, Dosing Weight 111.591, kg, PRN Geovanni sea & Vomiting, Start date: 01/26/19 8:23:00 CDT, 0 Notes: (Same as: Zofran) MEDICATION WASTE Product Size: 4 mgProduct Was tu: ___ mg Start Date: 01/26/19 Stop Date: 01/26/19 Status: Discontinued ANES ondansetron 4 mg, 2 mL, Route: IVP, Drug form: INJ, ONCE, Dosing Weight 111.591, kg, PRN Geovanni sea & Vomiting, Start date: 01/26/19 11:40:00 CDT, 0 Notes: (Same as: Zofran) MEDICATION WASTE Product Size: 4 mgProduct Was tu: ___ mg Start Date: 01/26/19 Stop Date: 01/26/19 Status: Discontinued ANES oxyCODONE 5 mg immediate release tablet 5 mg, 1 tab, Route: PO, Drug form: TAB, Q4H, Dosing Weight 111.591, kg, PRN Pain Score 4-6, Start date: 01/26/19 8:23:00 CDT, Stop date: 01/27/19 8:22:00 CDT, 0 Notes: (Same as: Roxicodone) Start Date: 01/26/19 Stop Date: 01/26/19 Status: Discontinued ANES oxyCODONE 5 mg immediate release tablet 10 mg, 2 tab, Route: PO, Drug form: TAB, Q4H, Dosing Weight 111.591, kg, PRN Adama n Score 7-10, Start date: 01/26/19 8:23:00 CDT, Stop date: 01/27/19 8:22:00 CDT, 0 Notes: (Same as: Roxicodone) Start Date: 01/26/19 Stop Date: 01/26/19 Status: Discontinued apixaban 5 mg oral tablet 5 mg=1 tab, PO, Q12H, 0 Refill(s) Start Date: 02/04/19 Status: Ordered aspirin 81 mg, 1 tab, Route: PO, Drug form: ECTAB, Daily, Dosing Weight 111.591, kg, Farhana ority: NOW, Start date: 01/26/19 11:36:00 CDT, Duration: 30 day, Stop date: 10/10 9:00:00 CDT, 0 Notes: Do not crush or chew.(Same As: Ecotrin) Start Date: 01/26/19 Stop Date: 01/26/19 Status: Discontinued aspirin 300 mg rectal suppository 300 mg, 1 supp, Route: WA, Drug form: SUPP, ONCE, Dosing Weight 95.007, kg, Prio rity: STAT, Start date: 01/26/19 18:04:00 CDT, Stop date: 01/26/19 18:04:00 CDT, 0 Notes: Refrigerate. Start Date: 01/26/19 Stop Date: 01/26/19 Status: Completed aspirin 81 mg tablet, enteric coated 81 mg, 1 tab, Route: PO, Drug form: ECTAB, Daily, Dosing Weight 111.591, kg, Farhana ority: Routine, Start date: 01/26/19 14:00:00 CDT, Duration: 30 day, Stop date: 02/25/19 9:00:00 CDT, 0 Notes: Do not crush or chew.(Same As: Ecotrin) Start Date: 01/26/19 Stop Date: 01/27/19 Status: Discontinued atorvastatin 20 mg, 1 tab, Route: GT, Drug form: TAB, Bedtime, Dosing Weight 111.591, kg, Sta rt date: 01/26/19 21:00:00 CDT, Duration: 30 day, Stop date: 02/24/19 21:00:00 C DT, 0 Notes: (Same As: Lipitor) Start Date: 01/26/19 Stop Date: 02/05/19 Status: Discontinued atorvastatin 80 mg, 1 tab, Route: PO, Drug form: TAB, Bedtime, Dosing Weight 111.591, kg, Sta rt date: 01/26/19 21:00:00 CDT, Duration: 30 day, Stop date: 02/24/19 21:00:00 C DT, 0 Notes: Same as Lipitor Start Date: 01/26/19 Stop Date: 01/26/19 Status: Canceled Cardene 20 mg in NS 200 mL (Titrate.) IV 20 mg 20 mg, 200 mL, Rate: Titrate, Start Dose: 5 mg/hr, Titration: 2.5 mg/hr every 15 minutes, Goal(s): SBP 110-140, Max Dose: 15 mg/hr, Route: IV, Dosing Weight 95. 007 kg, Total Volume: 200, Start date: 01/26/19 17:33:00 CDT, Duration: 30 day, Stop date:... Notes: Same as: CardeneConcentration: (0.1 mg/ 1 ml) Start Date: 01/26/19 Stop Date: 01/29/19 Status: Discontinued Cardene 40 mg in NS 200 mL (Titrate.) IV 40 mg 40 mg, 200 mL, Rate: Titrate, Start Dose: 5 mg/hr, Titration: 2.5 mg/hr every 15 minutes, Goal(s): sbp 110-140 goal, Max Dose: 15 mg/hr, Route: IV, Dosing Weight 95.007 kg, Total Volume: 200, Start date: 01/26/19 17:17:00 CDT, Duration: 30 day, Stop d... Start Date: 01/26/19 Stop Date: 01/26/19 Status: Discontinued ceFAZolin (ANES) Route: IV, Drug form: INJ, ONCE, Stop date: 01/26/19 8:34:00 CDT Start Date: 01/26/19 Stop Date: 01/26/19 Status: Completed chlorpheniramine 4 mg, Route: PO, Drug form: TAB, ONCE, Dosing Weight 95.007, kg, PRN Allergic re action, Start date: 01/27/19 22:35:00 CDT Start Date: 01/27/19 Stop Date: 01/27/19 Status: Discontinued Colace 100 mg oral capsule 100 mg=1 cap, PO, BID, 0 Refill(s) Start Date: 02/04/19 Stop Date: 02/04/19 Status: Discontinued Colace 100 mg oral capsule 100 mg, 1 cap, Route: PO, Drug form: CAP, Bedtime, Dosing Weight 95.007, kg, Sta rt date: 02/04/19 21:00:00 CDT, Duration: 30 day, Stop date: 03/05/19 21:00:00 C DT, 0 Notes: (Same as: Colace) (Do Not Crush) Start Date: 02/04/19 Stop Date: 02/05/19 Status: Discontinued Colace 100 mg oral capsule 100 mg, 1 cap, Route: PO, Drug form: CAP, BID, Dosing Weight 95.007, kg, Start d ate: 01/27/19 17:00:00 CDT, Duration: 30 day, Stop date: 02/26/19 9:00:00 CDT, 0 Notes: (Same as: Colace) (Do Not Crush) Start Date: 01/27/19 Stop Date: 02/04/19 Status: Discontinued Dextrose 5% in Water IV 1,000 mL 1,000 mL, Rate: 100 ml/hr, Infuse over: 10 hr, Route: IV, Dosing Weight 95.007 k g, Total Volume: 1,000, Start date: 01/28/19 15:32:00 CDT, Duration: 30 day, Sto p date: 02/27/19 15:31:00 CDT, 2.29, m2, 0 Start Date: 01/28/19 Stop Date: 01/29/19 Status: Discontinued Dulcolax Laxative 10 mg, 1 supp, Route: WA, Drug form: SUPP, ONCE, Dosing Weight 95.007, kg, Start date: 01/30/19 6:01:00 CDT, Stop date: 01/30/19 6:01:00 CDT, 0 Notes: (Same As: Dulcolax, Bisco-Lax) Start Date: 01/30/19 Stop Date: 01/30/19 Status: Completed Eliquis 5 mg, 1 tab, Route: PO, Drug form: TAB, Q12H, Dosing Weight 95.007, kg, Start da te: 01/29/19 21:00:00 CDT, Duration: 30 day, Stop date: 02/28/19 9:00:00 CDT, 0 Notes: Same as: Eliquis Start Date: 01/29/19 Stop Date: 02/05/19 Status: Discontinued Eliquis 5 mg oral tablet 5 mg, PO, Q12H, 0 Refill(s) Start Date: 01/26/19 Stop Date: 02/04/19 Status: Discontinued enalaprilat 1.25 mg, 1 mL, Route: IVP, Drug form: INJ, Q6H, Dosing Weight 95.007, kg, PRN Hy pertension, for CrCl > 30 mL/min, Start date: 01/29/19 22:43:00 CDT, Duration: 30 day, Stop date: 02/28/19 22:42:00 CDT, 0 Notes: (Same as: Vasotec-IV) Start Date: 01/29/19 Stop Date: 02/05/19 Status: Discontinued fentaNYL (ANES) Route: IV, Drug form: INJ, ONCE, Stop date: 01/26/19 8:24:00 CDT Start Date: 01/26/19 Stop Date: 01/26/19 Status: Completed Ferrlecit + Sodium Chloride 0.9% IV 100 mL 125 mg, 10 mL, Route: IV, Q7D, Dosing Weight 95.007, kg, Start date: 01/30/19 12 :00:00 CDT, Stop date: 03/20/19 10:00:00 CDT, 0 Notes: (sodium ferric gluconate complex (elemental iron) 62.5 mg/5 ml INJ)"Limit ed stability. Use immediately after admixture"(Same as: Ferrlecit) MEDICAT ION WASTE Product Size: 62.5 mgProduct Wasted: _0__ mg Start Date: 01/30/19 Stop Date: 02/05/19 Status: Discontinued ferrous gluconate 125 mg, Route: PO, Q7D, Dosing Weight 95.007, kg, Start date: 01/30/19 7:00:00 C DT, Stop date: 03/20/19 9:00:00 CDT Start Date: 01/30/19 Stop Date: 01/30/19 Status: Discontinued finasteride 1 mg, 1 tab, Route: DHT, Drug form: TAB, Daily, Dosing Weight 95.007, kg, Priori ty: NOW, Start date: 01/28/19 15:34:00 CDT, Duration: 30 day, Stop date: 9 9:00:00 CDT, 0 Notes: Same as Proscar"Do Not Crush"Women of childbearing age should not touch o r handle broken tablets Start Date: 01/28/19 Stop Date: 01/31/19 Status: Voided With Results finasteride 5 mg oral tablet 5 mg=1 tab, PO, Daily, 0 Refill(s) Start Date: 02/04/19 Status: Ordered glucagon 1 mg, Route: SUB-Q, ONCE, Dosing Weight 95.007, kg, Start date: 01/26/19 16:39:0 0 CDT, Stop date: 01/26/19 16:39:00 CDT Start Date: 01/26/19 Stop Date: 01/26/19 Status: Discontinued glucagon 1 mg, Route: IV, Drug form: PDR/INJ, ONCE, Dosing Weight 95.007, kg, Start date: 01/26/19 16:40:00 CDT, Stop date: 01/26/19 16:40:00 CDT, 0 Start Date: 01/26/19 Stop Date: 01/26/19 Status: Completed heparin 5000 units/mL injectable solution 5,000 unit, 1 mL, Route: SUB-Q, Drug form: INJ, Q8H, Dosing Weight 111.591, kg, Start date: 01/26/19 16:00:00 CDT, Duration: 30 day, Stop date: 02/25/19 8:00:00 CDT, 0 Notes: porcine heparin Start Date: 01/26/19 Stop Date: 01/27/19 Status: Discontinued heparin additive 25,000 unit [14 unit/kg/hr] + Premix Diluent Sodium Chloride 0. 45% 500 mL 500 mL, Rate: 26.6 ml/hr, Infuse over: 18.8 hr, Route: IV, Dosing Weight 95 kg, Total Volume: 500 mL, Start date: 01/27/19 5:09:00 CDT, Duration: 30 day, Stop d ate: 02/26/19 5:08:00 CDT, 2.29, m2, 0 Notes: Total Concentration=50 unit/ ml Total joqcup=512 mlSend Med Request 2 ho urs prior to next bag Start Date: 01/27/19 Stop Date: 01/29/19 Status: Discontinued labetalol 10 mg, 2 mL, Route: IVP, Drug form: INJ, Q10Min, Dosing Weight 95.007, kg, PRN O ther -See Comment, Start date: 01/26/19 17:53:00 CDT, Duration: 30 day, Stop ching e: 02/25/19 17:52:00 CDT, 0 Start Date: 01/26/19 Stop Date: 02/05/19 Status: Discontinued Lactated Ringers Injection IV (ANES) 1000 mL Route: IV, Total Volume: 1,000, Start date: 01/26/19 7:33:00 CDT, Stop date: 11/09 8:33:00 CDT Start Date: 01/26/19 Stop Date: 01/26/19 Status: Completed Levsin SL 0.125 mg, 1 tab, Route: SL, Drug form: TAB, Q6H, Dosing Weight 95.007, kg, PRN B ladder Spasm, Start date: 01/28/19 15:32:00 CDT, Duration: 30 day, Stop date: 15:31:00 CDT, 0 Notes: (Same as: Levsin) Take 30 min before meal Start Date: 01/28/19 Stop Date: 02/05/19 Status: Discontinued lidocaine topical patch (5% film) 1 patch, Route: TOP, Daily, Drug form: FILM, Start date: 01/27/19 15:01:00 CDT, Duration: 30 day, Stop date: 02/26/19 9:00:00 CDT Start Date: 01/27/19 Stop Date: 01/27/19 Status: Deleted lidocaine topical patch (5% film) 2 patch, Route: TOP, QPM, Drug form: FILM, Start date: 01/27/19 16:00:00 CDT, Du ration: 30 day, Stop date: 02/25/19 16:00:00 CDT, 0 Start Date: 01/27/19 Stop Date: 02/05/19 Status: Discontinued lisinopril 20 mg, 1 tab, Route: PO, Drug form: TAB, BID, Dosing Weight 95.007, kg, Start da te: 01/27/19 9:00:00 CDT, Duration: 30 day, Stop date: 02/25/19 17:00:00 CDT, 0 Notes: (Same as: Prinivil, Zestril) Start Date: 01/27/19 Stop Date: 02/05/19 Status: Discontinued lisinopril 20 mg oral tablet 20 mg=1 tab, PO, BID, 0 Refill(s) Start Date: 02/04/19 Status: Ordered lisinopril 40 mg oral tablet 40 mg=1 tab, PO, BID, 0 Refill(s) Start Date: 01/26/19 Stop Date: 02/04/19 Status: Discontinued magnesium citrate 1.745 g/30 mL oral liquid 150 ml, Route: PO, Drug Form: LIQ, Dosing Weight 95.007, kg, ONCE, STAT, Start d ate: 01/30/19 0:45:00 CDT, Stop date: 01/30/19 0:45:00 CDT, 0 Notes: (Same as: Citrate of Magnesia)Concentration: 1.745 gm / 30 mL Start Date: 01/30/19 Stop Date: 01/30/19 Status: Completed melatonin 5 mg, 1 tab, Route: PO, Drug form: TAB, Bedtime, Dosing Weight 95.007, kg, Start date: 02/01/19 21:00:00 CDT, Duration: 30 day, Stop date: 03/02/19 21:00:00 CDT, 0 Notes: (Same as: Melatonin) Start Date: 02/01/19 Stop Date: 02/05/19 Status: Discontinued melatonin 5 mg tablet 5 mg=1 tab, PO, Bedtime, 0 Refill(s) Start Date: 02/04/19 Status: Ordered metolazone 5 mg oral tablet 5 mg=1 tab, PO, BID, 0 Refill(s) Start Date: 01/26/19 Stop Date: 02/04/19 Status: Discontinued metoprolol tartrate 25 mg, 1 tab, Route: PO, Drug form: TAB, Q12H, Dosing Weight 95.007, kg, Start d ate: 01/30/19 12:00:00 CDT, Duration: 30 day, Stop date: 03/01/19 6:00:00 CDT, 0 Notes: (Same as: Lopressor) Start Date: 01/30/19 Stop Date: 02/05/19 Status: Discontinued metoprolol tartrate 25 mg oral tablet 25 mg=1 tab, PO, Q12H, 0 Refill(s) Start Date: 02/04/19 Status: Ordered midazolam (ANES) Route: IV, Drug form: SOLN, ONCE, Stop date: 01/26/19 8:19:00 CDT Start Date: 01/26/19 Stop Date: 01/26/19 Status: Completed NIFEdipine 90 mg oral tablet, extended release 90 mg, 1 tab, Route: PO, Drug form: ERTAB, Daily, Dosing Weight 95.007, kg, Star t date: 01/28/19 9:00:00 CDT, Duration: 30 day, Stop date: 02/26/19 9:00:00 CDT, 0 Notes: (Same as: Adalat CC,Procardia XL)"Do Not Crush" "Avoid grapefruit and gr apefruit juice" Start Date: 01/28/19 Stop Date: 01/28/19 Status: Discontinued [place] 10/325 oral tablet 1 tab, PO, Q6H, 0 Refill(s) Start Date: 01/26/19 Stop Date: 02/04/19 Status: Discontinued Norvasc 10 mg, 1 tab, Route: PO, Drug form: TAB, Daily, Dosing Weight 95.007, kg, Priori ty: NOW, Start date: 01/28/19 15:35:00 CDT, Duration: 30 day, Stop date: 9 9:00:00 CDT, 0 Notes: (Same as: Norvasc) Start Date: 01/28/19 Stop Date: 02/05/19 Status: Discontinued NS (Bolus) IV 500 mL, 250 ml/hr, Infuse Over: 2 hr, Route: IV, 500, Drug form: INJ, ONCE, Prio rity: STAT, Dosing Weight 95.007 kg, Start date: 02/03/19 7:28:00 CDT, Stop date : 02/03/19 7:28:00 CDT, 0 Start Date: 02/03/19 Stop Date: 02/03/19 Status: Completed NS (Bolus) IV 500 mL, 500 ml/hr, Infuse Over: 1 hr, Route: IV, 500, Drug form: INJ, ONCE, Prio rity: STAT, Dosing Weight 95.007 kg, Start date: 02/03/19 13:16:00 CDT, Stop ching e: 02/03/19 13:16:00 CDT, 0 Start Date: 02/03/19 Stop Date: 02/03/19 Status: Completed NS 1,000 mL 1,000 mL, Rate: 75 ml/hr, Infuse over: 13.3 hr, Route: IV, Dosing Weight 95.007 kg, Total Volume: 1,000, Start date: 02/03/19 8:21:00 CDT, Duration: 30 day, Sto p date: 03/05/19 8:20:00 CDT, 2.29, m2, 0 Start Date: 02/03/19 Stop Date: 02/04/19 Status: Discontinued NS 1,000 mL 1,000 mL, Rate: 75 ml/hr, Infuse over: 13.3 hr, Route: IV, Dosing Weight 111.591 kg, Total Volume: 1,000, Start date: 01/26/19 11:38:00 CDT, Duration: 30 day, S top date: 02/25/19 11:37:00 CDT, 2.48, m2, 0 Start Date: 01/26/19 Stop Date: 01/27/19 Status: Discontinued ondansetron 4 mg, 2 mL, Route: IVP, Drug form: INJ, Q8H, Dosing Weight 111.591, kg, PRN Naus ea, Start date: 01/26/19 14:18:00 CDT, Duration: 30 day, Stop date: 02/25/19 14: 17:00 CDT, 0 Notes: (Same as: Jaye) MEDICATION WASTE Product Size: 4 mgProduct Was tu: ___ mg Start Date: 01/26/19 Stop Date: 02/05/19 Status: Discontinued potassium chloride 25 mEq oral powder 0 Refill(s) Start Date: 01/26/19 Stop Date: 02/04/19 Status: Discontinued propofol (ANES) Route: IV, Drug form: INJ, ONCE, Stop date: 01/26/19 8:24:00 CDT Start Date: 01/26/19 Stop Date: 01/26/19 Status: Completed Proscar 5 mg, 1 tab, Route: PO, Drug form: TAB, Daily, Dosing Weight 95.007, kg, Priorit y: NOW, Start date: 01/31/19 9:11:00 CDT, Duration: 30 day, Stop date: 03/02/19 9:00:00 CDT, 0 Notes: (Same as: Proscar) "Do Not Crush"Women of childbearing age should not noé ch or handle broken tablets Start Date: 01/31/19 Stop Date: 02/05/19 Status: Discontinued remove patch 2 patch, Route: TOP, Daily, Drug form: ERFILM, Start date: 01/28/19 4:00:00 CDT, Duration: 30 day, Stop date: 02/26/19 4:00:00 CDT, 0 Start Date: 01/28/19 Stop Date: 02/05/19 Status: Discontinued Robaxin + Sodium Chloride 0.9% IV 250 mL 500 mg, 5 mL, Route: IV, Drug form: INJ, ONCE, Dosing Weight 95.007, kg, Priorit y: NOW, Start date: 01/27/19 15:00:00 CDT, Stop date: 01/27/19 15:00:00 CDT, 0 Notes: (Same as:Robaxin) Start Date: 01/27/19 Stop Date: 01/27/19 Status: Completed rosuvastatin 5 mg oral tablet 5 mg=1 tab, PO, Daily, 0 Refill(s) Start Date: 01/26/19 Stop Date: 02/04/19 Status: Discontinued Saline Flush 0.9% 10 ml, Route: IVP, Drug Form: INJ, Dosing Weight 111.591, kg, Q12H, Start date: 01/26/19 21:00:00 CDT, Duration: 30 day, Stop date: 02/25/19 9:00:00 CDT, 0 Notes: (Same as: BD Posiflush) Start Date: 01/26/19 Stop Date: 02/05/19 Status: Discontinued Saline Flush 0.9% 10 ml, Route: IVP, Drug Form: INJ, Dosing Weight 111.591, kg, PRN, PRN Line Flus h, Start date: 01/26/19 11:00:00 CDT, Duration: 30 day, Stop date: 02/25/19 10:5 9:00 CDT, 0 Notes: (Same as: BD Posiflush) Start Date: 01/26/19 Stop Date: 02/05/19 Status: Discontinued senna 8.6 mg, 1 tab, Route: PO, Drug Form: TAB, Dosing Weight 95.007, kg, BID, Start d ate: 01/27/19 17:00:00 CDT, Duration: 30 day, Stop date: 02/26/19 9:00:00 CDT, 0 Notes: (Same as: Senokot) Start Date: 01/27/19 Stop Date: 02/04/19 Status: Discontinued SEROquel 25 mg, 1 tab, Route: PO, Drug form: TAB, Daily, Dosing Weight 95.007, kg, Start date: 02/02/19 9:00:00 CDT, Duration: 30 day, Stop date: 03/03/19 9:00:00 CDT, 0 Notes: (Same as: SEROquel) Start Date: 02/02/19 Stop Date: 02/02/19 Status: Discontinued SEROquel 12.5 mg, 0.5 tab, Route: PO, Drug form: TAB, Bedtime, Dosing Weight 95.007, kg, PRN Agitation, Start date: 02/02/19 8:32:00 CDT, Duration: 30 day, Stop date: 8:31:00 CDT, 0 Notes: (Same as: SEROquel)12.5 mg=1/2 x 25 mg tab Start Date: 02/02/19 Stop Date: 02/02/19 Status: Discontinued SEROquel 12.5 mg, 0.5 tab, Route: PO, Drug form: TAB, ONCE, Dosing Weight 95.007, kg, Sta rt date: 02/02/19 20:00:00 CDT, Stop date: 02/02/19 20:00:00 CDT, 0 Start Date: 02/02/19 Stop Date: 02/02/19 Status: Completed SEROquel 12.5 mg, Route: PO, Drug form: TAB, Bedtime, Dosing Weight 95.007, kg, PRN Agita tion, Start date: 02/02/19 13:27:00 CDT, Duration: 30 day, Stop date: 03/04/19 1 3:26:00 CDT, 0 Start Date: 02/02/19 Stop Date: 02/02/19 Status: Discontinued SEROquel 12.5 mg, 0.5 tab, Route: PO, Drug form: TAB, Q12H, Dosing Weight 95.007, kg, PRN Agitation, Start date: 02/01/19 9:40:00 CDT, Duration: 30 day, Stop date: 03/03 9:39:00 CDT, 0 Notes: (Same as: SEROquel)12.5 mg=1/2 x 25 mg tab Start Date: 02/01/19 Stop Date: 02/02/19 Status: Discontinued Sodium Chloride 0.9% (titrate) 250 mL 250 mL, Rate: To prime line and flush remaining blood products., Dosing Weight 9 5.007, kg, Route: IV, Total Volume: 250, Start Date: 01/28/19 6:24:00 CDT, Durat ion: 1 day, Stop date: 01/29/19 6:23:00 CDT, Replace Every: 24 hr, 0 Start Date: 01/28/19 Stop Date: 01/28/19 Status: Discontinued Sodium Chloride 0.9% (titrate) 250 mL 250 mL, Rate: To prime line and flush remaining blood products., Dosing Weight 9 5.007, kg, Route: IV, Total Volume: 250, Start Date: 01/28/19 6:28:00 CDT, Durat ion: 1 day, Stop date: 01/29/19 6:27:00 CDT, Replace Every: 24 hr, 0 Start Date: 01/28/19 Stop Date: 01/28/19 Status: Discontinued tamsulosin 0.4 mg, 1 cap, Route: PO, Drug form: CAP, Daily, Dosing Weight 95.007, kg, Start date: 01/28/19 9:00:00 CDT, Duration: 30 day, Stop date: 02/26/19 9:00:00 CDT, 0 Notes: (Same As: Flomax) "Do Not Crush" Start Date: 01/28/19 Stop Date: 02/05/19 Status: Discontinued tamsulosin 0.4 mg oral capsule 0.4 mg=1 cap, PO, Daily, 0 Refill(s) Start Date: 02/04/19 Status: Ordered torsemide 20 mg, 1 tab, Route: PO, Drug form: TAB, BID, Dosing Weight 95.007, kg, Start da te: 01/27/19 9:00:00 CDT, Duration: 30 day, Stop date: 02/25/19 17:00:00 CDT, 0 Notes: (Same As: Demadex) Start Date: 01/27/19 Stop Date: 02/05/19 Status: Discontinued torsemide 20 mg oral tablet 20 mg=1 tab, PO, BID, 0 Refill(s) Start Date: 02/04/19 Status: Ordered torsemide 20 mg oral tablet 20 mg=1 tab, PO, BID, 0 Refill(s) Start Date: 01/26/19 Stop Date: 01/30/19 Status: Discontinued Tylenol 650 mg + empty container 1 ea Route: IV, Drug form: INJ, ONCE, Dosing Weight 95.007, kg, Start date: 01/28/19 0:17:00 CDT, Stop date: 01/28/19 0:17:00 CDT, 0 Notes: Infuse over 15 minutesDo not exceed 4gm/day of acetaminophen MEDICAT ION WASTE Product Size: 1000 mgProduct Wasted: ___ mg Start Date: 01/28/19 Stop Date: 01/28/19 Status: Completed Tylenol with Codeine #4 oral tablet 1 tab, PO, Q6H, PRN pain, 0 Refill(s) Start Date: 01/26/19 Stop Date: 02/04/19 Status: Discontinued Versed 2 mg, 2 mL, Route: IVP, Drug form: INJ, PRN, Dosing Weight 95.007, kg, PRN Other -See Comment, Start date: 01/27/19 2:33:00 CDT, Duration: 2 doses or times, Stop date: Limited # of times, 0 Notes: (Same as: Versed) MEDICATION WASTE Product Size: 2 mgProduct Was tu: ___ mg Start Date: 01/27/19 Stop Date: 01/27/19 Status: Discontinued Visipaque RediFlo Cartridge 150 mL, Route: INTRAARTERIAL, ONCE, Dosing Weight 111.591, kg, Start date: 01/26 11:21:00 CDT, Stop date: 01/26/19 11:21:00 CDT Start Date: 01/26/19 Stop Date: 01/26/19 Status: Completed Results 1 2 3 Most recent to oldest [Reference Range]: 271 nMol/L *NA* (01/28/19 11:06 AM) MMA Qnt [0-378 nMol/L] 5.9 K/CMM (02/03/19 1:17 AM) 4.6 K/CMM (02/01/19 10:43 AM) 3.3 K/CMM (01/31/19 3:55 AM) Neutrophils # [1.5-8.1 K/CMM] 1.2 K/CMM (02/03/19 1:17 AM) 0.7 K/CMM *LOW* (02/01/19 10:43 AM) 0.9 K/CMM *LOW* (01/31/19 3:55 AM) Lymphocytes # [1.0-5.5 K/CMM] 0.5 K/CMM (02/03/19 1:17 AM) 0.4 K/CMM (02/01/19 10:43 AM) 0.4 K/CMM (01/31/19 3:55 AM) Monocytes # [0.0-0.8 K/CMM] 0.1 K/CMM (02/03/19 1:17 AM) 0.1 K/CMM (02/01/19 10:43 AM) 0.2 K/CMM (01/31/19 3:55 AM) Eosinophils # [0.0-0.5 K/CMM] 0.1 K/CMM (02/03/19 1:17 AM) 0.1 K/CMM (02/01/19 10:43 AM) 0.1 K/CMM (01/31/19 3:55 AM) Basophils # [0.0-0.2 K/CMM] Normal (01/26/19 1:34 PM) Plt Morph [Normal] 0.4 mg/dL (02/01/19 10:43 AM) 0.3 mg/dL (01/28/19 11:06 AM) Bili Indirect [0.0-1.0 mg/dL] Unable to Calculate *NA* (01/26/19 1:34 PM) Bili Indirect [0.0-1.0] Negative (01/26/19 1:34 PM) MRSA by PCR 26 mL/min/1.73m2 1 *NA* (02/05/19 4:34 AM) 21 mL/min/1.73m2 2 *NA* (02/04/19 5:55 AM) 17 mL/min/1.73m2 3 *NA* (02/03/19 3:44 PM) eGFR Product available (01/28/19 6:28 AM) Product available (01/28/19 6:24 AM) RBC product O NEG *Unknown* (01/29/19 3:18 AM) O NEG *Unknown* (01/26/19 5:40 AM) ABO/Rh 8 % *LOW* (01/28/19 11:06 AM) % Satur Fe [12-57 %] 1.0 (02/01/19 10:43 AM) 1.1 (01/27/19 6:04 AM) 1.0 (01/26/19 1:34 PM) A/G Ratio [0.7-1.6] Negative (01/29/19 3:18 AM) Negative (01/26/19 5:40 AM) Antibody Scrn 3.9 g/dL (02/01/19 10:43 AM) 3.7 g/dL (01/27/19 6:04 AM) 2.9 g/dL *LOW* (01/26/19 1:34 PM) Albumin Lvl [3.5-5.0 g/dL] 144 unit/L *HI* (02/01/19 10:43 AM) 153 unit/L *HI* (01/27/19 6:04 AM) 117 unit/L (01/26/19 1:34 PM) Alk Phos [39-136 unit/L] 10 unit/L (02/01/19 10:43 AM) 10 unit/L (01/27/19 6:04 AM) 11 unit/L (01/26/19 1:34 PM) ALT [0-65 unit/L] 20.0 uMol/L (02/01/19 10:43 AM) Ammonia [<=45.0 uMol/L] 14.9 mEq/L (02/05/19 4:34 AM) 14.8 mEq/L (02/04/19 5:55 AM) 18.9 mEq/L (02/03/19 3:44 PM) AGAP [10.0-20.0 mEq/L] 1+ *ABN* (01/29/19 3:12 AM) 1+ *ABN* (01/28/19 3:46 AM) 1+ *ABN* (01/27/19 6:04 AM) Anisocyte [None Seen] 17 unit/L (02/01/19 10:43 AM) 10 unit/L (01/27/19 6:04 AM) 9 unit/L (01/26/19 1:34 PM) AST [0-37 unit/L] 20 (01/27/19 6:04 AM) B/C Ratio [6-25] 0.7 % (02/03/19 1:17 AM) 1.3 % *HI* (02/01/19 10:43 AM) 1.4 % *HI* (01/31/19 3:55 AM) Basophils [0.0-1.0 %] 12.7 uMol/L (01/28/19 11:10 AM) Homocyst Tot [3.7-13.9 uMol/L] 65 mg/dL *HI* (02/05/19 4:34 AM) 63 mg/dL *HI* (02/04/19 5:55 AM) 62 mg/dL *HI* (02/03/19 3:44 PM) BUN [7-22 mg/dL] 9.6 mg/dL (02/05/19 4:34 AM) 9.3 mg/dL (02/04/19 5:55 AM) 8.9 mg/dL (02/03/19 3:44 PM) Calcium Lvl [8.5-10.5 mg/dL] 3.21 *LOW* (01/26/19 1:34 PM) CHD Risk [4.00-7.30] 109 mg/dL (01/26/19 1:34 PM) Chol [<=199 mg/dL] 107 mEq/L (02/05/19 4:34 AM) 106 mEq/L (02/04/19 5:55 AM) 100 mEq/L (02/03/19 3:44 PM) Chloride Lvl [95-109 mEq/L] 21 mEq/L *LOW* (02/05/19 4:34 AM) 21 mEq/L *LOW* (02/04/19 5:55 AM) 17 mEq/L *LOW* (02/03/19 3:44 PM) CO2 [24-32 mEq/L] 2.45 mg/dL *HI* (02/05/19 4:34 AM) 2.94 mg/dL *HI* (02/04/19 5:55 AM) 3.47 mg/dL *HI* (02/03/19 3:44 PM) Creatinine Lvl [0.50-1.40 mg/dL] 0.2 mg/dL (02/01/19 10:43 AM) 0.1 mg/dL (01/28/19 11:06 AM) <0.1 mg/dL (01/26/19 1:34 PM) Bili Direct [0.0-0.3 mg/dL] 0.7 % (02/03/19 1:17 AM) 2.2 % (02/01/19 10:43 AM) 4.3 % *HI* (01/31/19 3:55 AM) Eosinophils [0.0-4.0 %] 41.2 mIU/mL 4 *HI* (01/28/19 11:06 AM) Erythropoietin [2.6-18.5 mIU/mL] 49 ng/mL (01/28/19 11:06 AM) Ferritin Lvl [22-275 ng/mL] 24.6 ng/mL (01/28/19 11:06 AM) Folate Lvl [>=3.0 ng/mL] 3.8 g/dL (02/01/19 10:43 AM) 3.3 g/dL (01/27/19 6:04 AM) 2.9 g/dL (01/26/19 1:34 PM) Globulin [2.7-4.2 g/dL] 120 mg/dL *HI* (02/05/19 4:34 AM) 118 mg/dL *HI* (02/04/19 5:55 AM) 133 mg/dL *HI* (02/03/19 3:44 PM) Glucose Lvl [70-99 mg/dL] 31.2 % *LOW* (02/03/19 1:17 AM) 31.5 % *LOW* (02/01/19 10:43 AM) 27.3 % *LOW* (01/31/19 3:55 AM) Hct [42.0-54.0 %] 34 mg/dL *LOW* (01/26/19 1:34 PM) HDL [>=61 mg/dL] 10.4 g/dL *LOW* (02/03/19 1:17 AM) 10.2 g/dL *LOW* (02/01/19 10:43 AM) 9.1 g/dL *LOW* (01/31/19 3:55 AM) Hgb [14.0-18.0 g/dL] <3.5 % (01/26/19 1:34 PM) Hgb A1C [<=5.6 %] 1.13 (01/30/19 6:00 AM) 1.16 (01/29/19 5:58 PM) 1.15 (01/29/19 11:22 AM) INR [0.85-1.17] 27 ug/dl *LOW* (01/28/19 11:06 AM) Iron [45-160 ug/dl] 3.9 mEq/L (02/05/19 4:34 AM) 3.8 mEq/L (02/04/19 5:55 AM) 3.9 mEq/L (02/03/19 3:44 PM) Potassium Lvl [3.5-5.1 mEq/L] 58 mg/dL (01/26/19 1:34 PM) LDL (Calculated) [<=99 mg/dL] 15.8 % *LOW* (02/03/19 1:17 AM) 12.2 % *LOW* (02/01/19 10:43 AM) 18.1 % *LOW* (01/31/19 3:55 AM) Lymphocytes [20.0-40.0 %] 28.7 pg (02/03/19 1:17 AM) 27.6 pg (02/01/19 10:43 AM) 28.9 pg (01/31/19 3:55 AM) MCH [27.0-31.0 pg] 33.4 g/dL (02/03/19 1:17 AM) 32.3 g/dL (02/01/19 10:43 AM) 33.4 g/dL (01/31/19 3:55 AM) MCHC [32.0-36.0 g/dL] 85.9 fL (02/03/19 1:17 AM) 85.4 fL (02/01/19 10:43 AM) 86.5 fL (01/31/19 3:55 AM) MCV [80.0-94.0 fL] 1.8 mg/dL (01/30/19 12:14 AM) 1.9 mg/dL (01/28/19 3:46 AM) 2.1 mg/dL (01/26/19 1:34 PM) Magnesium Lvl [1.8-2.4 mg/dL] 1+ *ABN* (01/28/19 3:46 AM) 1+ *ABN* (01/26/19 1:34 PM) Microcyte [None Seen] 6.5 % (02/03/19 1:17 AM) 7.1 % (02/01/19 10:43 AM) 8.0 % (01/31/19 3:55 AM) Monocytes [2.0-12.0 %] 9.1 fL (02/03/19 1:17 AM) 8.6 fL (02/01/19 10:43 AM) 8.6 fL (01/31/19 3:55 AM) MPV [7.4-10.4 fL] 139 mEq/L (02/05/19 4:34 AM) 138 mEq/L (02/04/19 5:55 AM) 132 mEq/L *LOW* (02/03/19 3:44 PM) Sodium Lvl [135-145 mEq/L] Peripheral blood smear shows hypochromic anemia with anisopoikilocytosis, slight polychromasia. Impression: iron deficiency anemia vs. anemia of chronic disease. CPT: 36991 *NA* (01/28/19 11:00 AM) PB Smear Path 2.9 mg/dL (01/30/19 12:14 AM) 3.7 mg/dL (01/28/19 3:46 AM) 4.7 mg/dL *HI* (01/26/19 1:34 PM) Phosphorus [2.5-4.5 mg/dL] 244 K/CMM (02/03/19 1:17 AM) 258 K/CMM (02/01/19 10:43 AM) 211 K/CMM (01/31/19 3:55 AM) Platelet [133-450 K/CMM] 76.3 % *HI* (02/03/19 1:17 AM) 77.2 % *HI* (02/01/19 10:43 AM) 68.2 % (01/31/19 3:55 AM) Segs [45.0-75.0 %] 7.7 g/dL (02/01/19 10:43 AM) 7.0 g/dL (01/27/19 6:04 AM) 5.8 g/dL *LOW* (01/26/19 1:34 PM) Total Protein [6.4-8.4 g/dL] 14.3 seconds (01/30/19 6:00 AM) 14.6 seconds (01/29/19 5:58 PM) 14.5 seconds (01/29/19 11:22 AM) PT [12.0-14.7 seconds] 32.3 seconds (01/30/19 6:00 AM) 68.2 seconds *HI* (01/29/19 5:58 PM) 66.3 seconds *HI* (01/29/19 11:22 AM) PTT [22.9-35.8 seconds] 3.63 M/CMM *LOW* (02/03/19 1:17 AM) 3.69 M/CMM *LOW* (02/01/19 10:43 AM) 3.16 M/CMM *LOW* (01/31/19 3:55 AM) RBC [4.70-6.10 M/CMM] 20.9 % *HI* (02/03/19 1:17 AM) 20.4 % *HI* (02/01/19 10:43 AM) 21.0 % *HI* (01/31/19 3:55 AM) RDW [11.5-14.5 %] 1.0 % (01/28/19 11:06 AM) Retic Auto [0.5-1.5 %] 0.6 mg/dL (02/01/19 10:43 AM) 0.4 mg/dL (01/28/19 11:06 AM) 0.3 mg/dL (01/27/19 6:04 AM) Bili Total [0.2-1.3 mg/dL] 323 ug/dl (01/28/19 11:06 AM) TIBC [228-428 ug/dl] 87 mg/dL (01/26/19 1:34 PM) Trig [<=149 mg/dL] <0.02 ng/mL (01/26/19 1:34 PM) Troponin-I [0.00-0.40 ng/mL] Occasional /HPF *NA* (02/02/19 9:13 PM) Occasional /HPF *NA* (01/26/19 1:34 PM) UA Bacteria [None Seen /HPF] Negative *NA* (02/02/19 9:13 PM) Negative *NA* (01/26/19 1:34 PM) UA Bili [Negative] Small *ABN* (02/02/19 9:13 PM) Negative (01/26/19 1:34 PM) UA Blood [Negative] Yellow *NA* (02/02/19 9:13 PM) Light Yellow *NA* (01/26/19 1:34 PM) UA Color [Yellow] 50mg/dl *NA* (02/02/19 9:13 PM) UA Glucose Negative mg/dL *NA* (01/26/19 1:34 PM) UA Glucose [Negative mg/dL] Negative mg/dL *NA* (02/02/19 9:13 PM) Negative mg/dL *NA* (01/26/19 1:34 PM) UA Ketones [Negative mg/dL] Negative (02/02/19 9:13 PM) Negative (01/26/19 1:34 PM) UA Leuk Est [Negative] Few /LPF *NA* (02/02/19 9:13 PM) UA Mucus [None Seen /LPF] Negative (02/02/19 9:13 PM) Negative (01/26/19 1:34 PM) UA Nitrite [Negative] 6.0 (02/02/19 9:13 PM) 5.0 (01/26/19 1:34 PM) UA pH [5.0-8.0] >=300 mg/dL *ABN* (02/02/19 9:13 PM) Negative mg/dL (01/26/19 1:34 PM) UA Protein [Negative mg/dL] 26 /HPF *HI* (02/02/19 9:13 PM) 1 /HPF (01/26/19 1:34 PM) UA RBC [0-2 /HPF] 1.016 (02/02/19 9:13 PM) 1.010 (01/26/19 1:34 PM) UA Spec Grav [<=1.030] Occasional /LPF *NA* (02/02/19 9:13 PM) UA Sq Epi [Few /LPF] None Seen *NA* (01/26/19 1:34 PM) UA Sq Epi Slight *ABN* (02/02/19 9:13 PM) Slight *ABN* (01/26/19 1:34 PM) UA Turbidity [Clear] <1.0 mg/dL (02/02/19 9:13 PM) <1.0 mg/dL (01/26/19 1:34 PM) UA Urobilinogen [0.1-1.0 mg/dL] 3 /HPF (02/02/19 9:13 PM) <1 /HPF (01/26/19 1:34 PM) UA WBC [0-5 /HPF] 296 ug/dl (01/28/19 11:06 AM) UIBC [110-370 ug/dl] 957 pg/mL (01/28/19 11:06 AM) Vitamin B12 Lvl [254-1320 pg/mL] 7.7 K/CMM (02/03/19 1:17 AM) 6.0 K/CMM (02/01/19 10:43 AM) 4.8 K/CMM (01/31/19 3:55 AM) WBC [3.7-10.4 K/CMM] 1.35 mMol/L *HI* (01/27/19 6:04 AM) 1.25 mMol/L (01/26/19 1:34 PM) Ca Ion WB [1.05-1.25 mMol/L] 1.29 mMol/L *HI* (01/27/19 6:04 AM) 1.18 mMol/L (01/26/19 1:34 PM) Ca Norm WB [1.05-1.25 mMol/L] Comment 5 *NA* (01/28/19 11:06 AM) Disclaimer (Org Acid) 17 *NA* (01/26/19 1:34 PM) VLDL 1Result Comment: The eGFR is calculated using [...] tiplied by the estimated BMI. 4Result Comment: [email or web address] D[employer]I 800 Immunoassay System Values obtained with different assay methods or kits cannot be used interchangeably. Results cannot be interpreted as absolute evidence of the presence or absence of malignant disease. Performed At: [facility] [id number] Chaim Petit MD Ph:[phone] 5Result Comment: This test was developed and its performance characteristics determined by [employer]. It has not been cleared or approved by the Food and Drug Administration. Performed At: [address] [id number] Chaim Petit MD Ph:[phone] Immunizations Given and Recorded Vaccine Date Status Refusal Reason influenza virus vaccine, inactivated 04/08/18 Recorded pneumococcal 13-valent vaccine 04/11/17 Given Hx influenza vaccine-unspecified1 04/26/14 Given 1Result Comment: done. Migrated from [facility] ; Data migrated from [facility] on 07/26/2015. Procedures Procedure Date Related Diagnosis Body Site Status Primary percutaneous transluminal mechanical 01/26/19 Completed thrombectomy, noncoronary, non-intracranial, arterial or arterial bypass graft, including fluoroscopic guidance and intraprocedural pharmacological thrombolytic injection(s); initial vessel Selective catheter placement, common carotid 01/26/19 Completed or innominate artery, unilateral, any approach, with angiography of the ipsilateral extracranial carotid circulation and all associated radiological supervision and interpretation, includes angiography of the c Selective catheter placement, internal 01/26/19 Completed carotid artery, unilateral, with angiography of the ipsilateral intracranial carotid circulation and all associated radiological supervision and interpretation, includes angiography of the extracranial carotid and ce 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 Exercise 1, 2 Substance Abuse Use: None. Smoking Status Former smoker; Type: Cigars; Exposure to Tobacco Smoke None; Cigarette Smoking Last 365 Days No; Reg Smoking Cessation Counseling No entered on: 01/26/19 1Pt works 3 times a week with him 2none Assessment and Plan Extracted from: Title: Stroke Author: Cara Saldaña NP Date: 02/04/19 IN-STROKE NEUROLOGY DISCHARGE SUMMARY Date of Admission: 01/26/19 [...] Urology Renal Brief HPI: 68 yo with mateo pinto, off Eliquis [...] for urinary retention, IPR- [facility] 02/01: Patient more confused overnight, [...] Etiology of Stroke: cardioembolic Discharge Medications: see R Discharge: Rehab Follow up: - [place] St[place]. Clinic #[phone] in 4 weeks - PCP in 1-2 [...] prescriptions, and discussing discharge instructions with patient. [id number] Extracted from: Title: Stroke Author: Cara Saldaña NP Date: 02/03/19 STROKE TEAM PROGRESS NOTE Chief Complaint: Right MCA Syndrome HISTORY OF PRESENT ILLNESS: 68 yo with camilo. fib, off Eliquis for 2 weeks, DVT [...] for urinary retention, IPR- [facility] 02/01: Patient more confused overnight, [...] Meds: None Continuous Infusions: None Physical Exam VitalsTmp(F)[id number] 02/03 12:3597.03749/326252--- 02/03 08:1899.610303/543625--- 02/03 06:15----9194/62-------- 02/03 03:1898.98104/964200--- 02/02 23:2097.6311640/089183--- 24 Hr Tmax: 99.0F (37.22c) at 02/03 08:18Vital Signs are the last 5 in the [...] deferred Labs (Last four charted values) WBC 7.7(FEB 03)6.0(FEB 01)4.8(JAN 31)4.8(JAN 30) Hgb L 10.4(FEB 03)L 10.2(FEB 01)L 9.1(JAN 31)L 8.4(JAN 30) Hct L 31.2(FEB 03)L 31.5(FEB 01)L 27.3(JAN 31)L 25.1(JAN 30) Plt 244(FEB 03)258(FEB 01)211(JAN 31)217(JAN 30) Na L 134(FEB 03)137(FEB 01)136(JAN 31)137(JAN 30) K 3.7(FEB 03)L 3.4(FEB 01)3.7(JAN 31)3.5(JAN 30) CO2 L 23(FEB 03)27(FEB 01)L 22(JAN 31)L 22(JAN 30) Cl 101(FEB 03)102(FEB 01)103(JAN 31)105(JAN 30) Cr H 2.95(FEB 03)H 1.98(FEB 01)H 2.01(JAN 31)H 2.17(JAN 30) BUN H 60(FEB 03)H 43(FEB 01)H 44(JAN 31)H 43(JAN 30) Glucose Random H 128(FEB 03)H 135(FEB 01)H 110(JAN 31)95(JAN 30) Mg 1.8(JAN 30)1.9(JAN 28)2.1(JAN 26) Phos 2.9(JAN 30)3.7(JAN 28)H 4.7(JAN 26) Ca 9.7(FEB 03)H 10.8(FEB 01)10.2(JAN 31)9.9(JAN 30) PT 14.3(JAN 30)14.6(JAN 29)14.5(JAN 29)H 15.0(JAN 29) INR 1.13(JAN 30)1.16(JAN 29)1.15(JAN 29)H 1.20(JAN 29) PTT 32.3(JAN 30)H 68.2(JAN 29)H 66.3(JAN 29)H 56.1(JAN 29) Troponin <0.02(JAN 26) Stroke Work-Up: [facility] 01/28/19: Evolving ischemic [...] 58 A1C <3.5 Assessment/Plan: 68 yo with a. millie, off Eliquis for 2 weeks, DVT with [...] Disposition PT/OT recommending IPR- Referral sent to [facility] on 01/30 Follow-up: - [place] Stroke - Urology - Continue monitoring urine for clots but seems to be resolving with stabilized Hgb - F/u in [facility] in 3 weeks with pre-clinic CT-Urogram (clinic #: [phone]) - Will schedule f/u Cysto when pt sees us in clinic - PCP for post hospitalization care Extracted from: Title: Urology consultation note Author: Benedict Louis MD [...] blood pressure; Kidney disease; Throat cancer. Objective: VitalsTmp(F)[id number] 01/28 09:00----[id number]/[id number]--- 01/28 08:00----98790/518690--- 01/28 07:0097.880463/8545262--- 01/28 06:12----34308/8910113--- 01/28 05:04----[id number]/[id number]--- 24 Hr Tmax: 98.9F (37.17c) at 01/27 16:00Vital Signs are the last 5 in the [...] PRN Meds (4): 01/27/19 acetaminophen 650 mg WA Q6H 01/26/19 labetalol 10 mg IVP Q10Min [...] team Benedict Aguiar MD PGY-2 Urology Addendum The patient was seen and examined by me with the resident/CLINICAL QUALITY RN/PA and I agree with the by Chasidy, History/Exam documented. 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
--- OUTSIDE RECORDS SUMMARY | 2019-02-22 08:12 | XMS REPORT | Summary of Care ---
Author Author [facility] Primary Care [facility] Organization [facility] Address Unknown Phone Unavailable Encounter RAFIA Valiente(CORINNA) [id number] Date(s): 09/08/18 - 09/08/18 [facility] [address] [place] [address]- Discharge Disposition: Home or Self Care Attending Physician: Nic Paz MD Vital Signs Most recent to 1 oldest [Reference Range]: Height 198.12 cm (09/08/18 9:30 AM) Blood Pressure 116/60 mmHg [90-140/60-90 mmHg] (09/08/18 9:30 AM) Respiratory Rate 16 BRMIN [14-20 BRMIN] (09/08/18 9:30 AM) Peripheral Pulse 99 bpm Rate [60-100 bpm] (09/08/18 9:30 AM) Weight 115.455 kg (09/08/18 9:30 AM) Body Mass Index 29.41 m2 (09/08/18 9:30 AM) Problem List Condition Effective Dates Status [...] Coffee ground Active emesis(Confirmed) 1Data migrated from [facility] on 11/20/14. 2Data migrated from [employer] on 11/20/14. 3Data migrated from [employer] on 11/20/14. 4RLE Joint Aspirate - 08/01/2018 5Blood, 01/19/2017 6Problem added by Discern Expert. Allergies, Adverse Reactions, Alerts Substance Reaction Severity Status clindamycin Active hydrALAZINE1 Active 1Data migrated from [employer] on 10/22/14. Originally documented as HYDRALAZINE HCL. dyspnea Medications acetaminophen-hydrocodone 325 mg-10 mg oral tablet 1 tab, PO, QID, PRN Pain, # 120 tab, 0 Refill(s), given to patient Start Date: 09/08/18 Status: Ordered NIFEdipine 90 mg oral tablet, extended release 90 mg=1 tab, PO, Daily, .., # 90 tab, 3 Refill(s), Pharmacy: [facility] Pharmacy Jenae ballesteros Start Date: 09/08/18 Status: Ordered Results No data available for this section Immunizations Given and Recorded Vaccine Date Status Refusal Reason influenza virus vaccine, inactivated 04/08/18 Recorded pneumococcal 13-valent vaccine 04/11/17 Given Hx influenza vaccine-unspecified1 04/26/14 Given 1Result Comment: done. Migrated from [facility] ; Data migrated from [employer] on 07/26/2015. Procedures Procedure Date Related Diagnosis [...]
--- OUTSIDE RECORDS SUMMARY | 2019-02-22 08:12 | XMS REPORT | Summary of Care ---
Author Author [facility] Organization [facility] Address Unknown Phone Unavailable Care Team Providers Care Corrections Lieutenant Name Role Phone Nic Paz PCP Encounter [facility] Encntr_alimague(FIN) [phone] Date(s): 10/30/18 - 11/07/18 [facility] [address] [facility] provided by [facility] [place] [address]- Discharge Disposition: [facility] Facility Attending Physician: Rao Caldera MD Admitting Physician: Perico Stewart MD Referring Physician: Nic Paz MD Vital Signs 1 2 3 Most recent to oldest [Reference Range]: 198.12 cm (10/30/18 2:26 AM) Height 98.4 DegF (11/07/18 8:00 AM) 98.3 DegF (11/07/18 5:42 AM) 98 DegF (11/07/18 12:38 AM) Temperature Oral [96.4-99.1 DegF] 138/76 mmHg (11/07/18 12:45 PM) 132/84 mmHg (11/07/18 12:30 PM) 144/84 mmHg *HI* (11/07/18 12:15 PM) Blood Pressure [90-140/60-90 mmHg] 17 BRMIN (11/07/18 12:45 PM) 18 BRMIN (11/07/18 12:30 PM) 16 BRMIN (11/07/18 12:15 PM) Respiratory Rate [14-20 BRMIN] 78 bpm (11/07/18 8:00 AM) 73 bpm (11/07/18 5:42 AM) 62 bpm (11/07/18 12:38 AM) Peripheral Pulse Rate [60-100 bpm] 103.009 kg (10/30/18 2:26 AM) Weight 26.24 m2 (10/30/18 2:26 AM) Body Mass Index Problem List Condition Effective [...] mg-10 mg oral tablet 1 tab, PO, Q6H, PRN Pain Score 7-10, X 3 day, # 12 tab, 0 Refill(s), given to aracelis brandt Start Date: 11/07/18 Stop Date: 11/10/18 Status: Ordered acetaminophen-hydrocodone 325 mg-10 mg oral tablet 1 tab, Route: PO, Drug Form: TAB, Dosing Weight 103.009, kg, QID, PRN Pain Score 7-10, Start date: 10/30/18 4:12:00 CDT, Duration: 30 day, Stop date: 11/29/18 4 :11:00 CDT Notes: Do not exceed 4gm/day of acetaminophen. (Same as: Basom 325/10) Start Date: 10/30/18 Stop Date: 11/07/18 Status: Discontinued allopurinol 300 mg, 1 tab, Route: PO, Drug form: TAB, Daily, Dosing Weight 103.009, kg, Star t date: 10/30/18 9:00:00 CDT, Duration: 30 day, Stop date: 11/28/18 9:00:00 CDT Notes: (Same as: Zyloprim) Start Date: 10/30/18 Stop Date: 11/07/18 Status: Discontinued ANES acetaminophen 1,000 mg, 2 tab, Route: PO, Drug form: TAB, ONCE, Dosing Weight 103.009, kg, PRN Pain Score 1-3, Start date: 10/31/18 11:03:00 CDT Notes: Max acetaminophen 4000 mg/day (4 gm/day). (Same as: Tylenol Extra Streng th) Start Date: 10/31/18 Stop Date: 10/31/18 Status: Discontinued ANES fentaNYL 50 microgram, 1 mL, Route: IVP, Drug form: INJ, Q5Min, Dosing Weight 103.009, kg , PRN Pain Score 7-10, Priority: Routine, Start date: 11/07/18 11:27:00 CDT, Dur ation: 2 doses or times, Stop date: 11/08/18 0:00:00 CDT Notes: (Same as: Sublimaze) Preservative free. Start Date: 11/07/18 Stop Date: 11/07/18 Status: Discontinued ANES fentaNYL 25 microgram, 0.5 mL, Route: IVP, Drug form: INJ, Q5Min, Dosing Weight 103.009, kg, PRN Pain Score 4-6, Priority: Routine, Start date: 11/07/18 11:27:00 CDT, Du ration: 4 doses or times, Stop date: Limited # of times Notes: (Same as: Sublimaze) Preservative free. Start Date: 11/07/18 Stop Date: 11/07/18 Status: Discontinued ANES flumazenil 0.2 mg, 2 mL, Route: IVP, Drug form: INJ, PRN, Dosing Weight 103.009, kg, PRN Be nzodiazepine Reversal, Initial dose, Start date: 11/07/18 11:27:00 CDT, Stop ching e: 11/08/18 0:00:00 CDT Notes: (Same as: Romazicon) Start Date: 11/07/18 Stop Date: 11/07/18 Status: Discontinued ANES flumazenil 0.2 mg, 2 mL, Route: IVP, Drug form: INJ, PRN, Dosing Weight 103.009, kg, PRN Be nzodiazepine Reversal, Initial dose, Start date: 10/31/18 11:03:00 CDT, Duration : 30 day, Stop date: 11/30/18 11:02:00 CDT Notes: (Same as: Romazicon) Start Date: 10/31/18 Stop Date: 10/31/18 Status: Discontinued ANES flumazenil 0.2 mg, 2 mL, Route: IVP, Drug form: INJ, PRN, Dosing Weight 103.009, kg, PRN Be nzodiazepine Reversal, Initial dose, Start date: 11/03/18 15:28:00 CDT, Stop ching e: 11/04/18 0:00:00 CDT Notes: (Same as: Romazicon) Start Date: 11/03/18 Stop Date: 11/03/18 Status: Discontinued ANES HYDROmorphone 0.5 mg, 0.25 mL, Route: IVP, Drug form: INJ, Q5Min, Dosing Weight 103.009, kg, P RN Pain Score 7-10, Start date: 10/31/18 11:03:00 CDT, Duration: 4 doses or time s, Stop date: Limited # of times Notes: Same as Dilaudid Start Date: 10/31/18 Stop Date: 10/31/18 Status: Discontinued ANES HYDROmorphone 0.5 mg, 0.25 mL, Route: IVP, Drug form: INJ, Q5Min, Dosing Weight 103.009, kg, P RN Pain Score 7-10, Start date: 11/03/18 15:28:00 CDT, Duration: 4 doses or time s, Stop date: 11/04/18 0:00:00 CDT Notes: Same as Dilaudid Start Date: 11/03/18 Stop Date: 11/03/18 Status: Completed ANES labetalol 10 mg, 2 mL, Route: IVP, Drug form: INJ, Q5Min, Dosing Weight 103.009, kg, PRN E levated BP, Start date: 11/07/18 11:27:00 CDT, Duration: 5 doses or times, Stop date: 11/08/18 0:00:00 CDT Start Date: 11/07/18 Stop Date: 11/07/18 Status: Discontinued ANES labetalol 10 mg, 2 mL, Route: IVP, Drug form: INJ, Q5Min, Dosing Weight 103.009, kg, PRN E levated BP, Start date: 10/31/18 11:03:00 CDT, Duration: 5 doses or times, Stop date: Limited # of times Start Date: 10/31/18 Stop Date: 10/31/18 Status: Discontinued ANES labetalol 10 mg, 2 mL, Route: IVP, Drug form: INJ, Q5Min, Dosing Weight 103.009, kg, PRN E levated BP, Start date: 11/03/18 15:28:00 CDT, Duration: 5 doses or times, Stop date: 11/04/18 0:00:00 CDT Start Date: 11/03/18 Stop Date: 11/03/18 Status: Discontinued ANES metoprolol 1 mg, 1 mL, Route: IVP, Drug form: INJ, Q5Min, Dosing Weight 103.009, kg, PRN Ot her -See Comment, Start date: 11/03/18 15:28:00 CDT, Duration: 5 doses or times, Stop date: 11/04/18 0:00:00 CDT Notes: (Same as: Lopressor)Push over 2 minutes Start Date: 11/03/18 Stop Date: 11/03/18 Status: Discontinued ANES naloxone 0.4 mg, 1 mL, Route: IVP, Drug form: INJ, Q2MIN, Dosing Weight 103.009, kg, PRN Narcotic Reversal, Start date: 11/07/18 11:27:00 CDT, Duration: 8 doses or times , Stop date: 11/08/18 0:00:00 CDT Notes: Same as Narcan Start Date: 11/07/18 Stop Date: 11/07/18 Status: Discontinued ANES naloxone 0.4 mg, 1 mL, Route: IVP, Drug form: INJ, Q2MIN, Dosing Weight 103.009, kg, PRN Narcotic Reversal, Start date: 10/31/18 11:03:00 CDT, Duration: 8 doses or times , Stop date: Limited # of times Notes: Same as Narcan Start Date: 10/31/18 Stop Date: 10/31/18 Status: Discontinued ANES naloxone 0.4 mg, 1 mL, Route: IVP, Drug form: INJ, Q2MIN, Dosing Weight 103.009, kg, PRN Narcotic Reversal, Start date: 11/03/18 15:28:00 CDT, Duration: 8 doses or times , Stop date: 11/04/18 0:00:00 CDT Notes: Same as Narcan Start Date: 11/03/18 Stop Date: 11/03/18 Status: Discontinued ANES ondansetron 4 mg, 2 mL, Route: IVP, Drug form: INJ, ONCE, Dosing Weight 103.009, kg, PRN Geovanni sea & Vomiting, Start date: 11/07/18 11:27:00 CDT Notes: (Same as: Jaye) MEDICATION WASTE Product Size: 4 mgProduct Was tu: ___ mg Start Date: 11/07/18 Stop Date: 11/07/18 Status: Discontinued ANES ondansetron 4 mg, 2 mL, Route: IVP, Drug form: INJ, ONCE, Dosing Weight 103.009, kg, PRN Geovanni sea & Vomiting, Start date: 10/31/18 11:03:00 CDT Notes: (Same as: Jaye) MEDICATION WASTE Product Size: 4 mgProduct Was tu: ___ mg Start Date: 10/31/18 Stop Date: 10/31/18 Status: Discontinued ANES ondansetron 4 mg, 2 mL, Route: IVP, Drug form: INJ, ONCE, Dosing Weight 103.009, kg, PRN Geovanni sea & Vomiting, Start date: 11/03/18 15:28:00 CDT Notes: (Same as: Jaye) MEDICATION WASTE Product Size: 4 mgProduct Was tu: ___ mg Start Date: 11/03/18 Stop Date: 11/03/18 Status: Discontinued ANES oxyCODONE 5 mg, 1 tab, Route: PO, Drug form: TAB, Q4H, Dosing Weight 103.009, kg, PRN Pain Score 4-6, Start date: 11/07/18 11:27:00 CDT, Stop date: 11/08/18 0:00:00 CDT Notes: (Same as: Roxicodone) Start Date: 11/07/18 Stop Date: 11/07/18 Status: Discontinued ANES oxyCODONE 10 mg, 2 tab, Route: PO, Drug form: TAB, Q4H, Dosing Weight 103.009, kg, PRN Adama n Score 7-10, Start date: 11/07/18 11:27:00 CDT, Stop date: 11/08/18 0:00:00 CDT Notes: (Same as: Roxicodone) Start Date: 11/07/18 Stop Date: 11/07/18 Status: Discontinued ANES oxyCODONE 5 mg, 1 tab, Route: PO, Drug form: TAB, Q4H, Dosing Weight 103.009, kg, PRN Pain Score 4-6, Start date: 10/31/18 11:03:00 CDT, Duration: 30 day, Stop date: 03/12 11:02:00 CDT Notes: (Same as: Roxicodone) Start Date: 10/31/18 Stop Date: 10/31/18 Status: Discontinued aspirin 81 mg, 1 tab, Route: PO, Drug form: ECTAB, Daily, Dosing Weight 103.009, kg, Sta rt date: 10/30/18 9:00:00 CDT, Duration: 30 day, Stop date: 11/28/18 9:00:00 CDT Notes: Do not crush or chew.(Same As: Ecotrin) Start Date: 10/30/18 Stop Date: 11/07/18 Status: Discontinued aspirin 81 mg tablet, enteric coated 81 mg=1 tab, PO, Daily, 0 Refill(s) Start Date: 11/07/18 Status: Ordered atorvastatin 20 mg, 1 tab, Route: PO, Drug form: TAB, Bedtime, Dosing Weight 103.009, kg, Sta rt date: 10/30/18 21:00:00 CDT, Duration: 30 day, Stop date: 11/28/18 21:00:00 C DT Notes: (Same As: Lipitor) Start Date: 10/30/18 Stop Date: 11/07/18 Status: Discontinued atorvastatin 20 mg oral tablet 20 mg=1 tab, PO, Bedtime, # 30 tab, 0 Refill(s) Start Date: 10/30/18 Status: Ordered calcium chloride (ANES) Route: IV, Drug form: INJ, ONCE, Stop date: 11/03/18 17:00:00 CDT Start Date: 11/03/18 Stop Date: 11/03/18 Status: Completed ceFAZolin (ANES) Route: IV, Drug form: INJ, ONCE, Stop date: 11/03/18 15:53:00 CDT Start Date: 11/03/18 Stop Date: 11/03/18 Status: Completed ceFAZolin (ANES) Route: IV, Drug form: INJ, ONCE, Stop date: 10/31/18 11:08:00 CDT Start Date: 10/31/18 Stop Date: 10/31/18 Status: Completed ceFAZolin (ANES) Route: IV, Drug form: INJ, ONCE, Stop date: 11/07/18 11:50:00 CDT Start Date: 11/07/18 Stop Date: 11/07/18 Status: Completed ceFAZolin (SCIP) 2 gm, 20 mL, Route: IVP, Drug form: SOLN, ABXQ8H, Dosing Weight 103.009, kg, Sta rt date: 11/03/18 23:00:00 CDT, Duration: 2 day, Stop date: 11/05/18 15:00:00 CD T, ABX Indication: Surgical Prophylaxis Start Date: 11/03/18 Stop Date: 11/05/18 Status: Completed Cubicin + Sodium Chloride 0.9% IV 100 mL 600 mg, Route: IVPB, Daily, Start date: 10/30/18 10:00:00 CDT, Duration: 30 day, Stop date: 11/28/18 21:00:00 CDT, ABX Indication: Bone/Joint Infection Notes: (Same As: Cubicin)Restricted use to Infectious Disease Physicians.For [facility]land lt patients only: Round to nearest 50 mg per Medical Staff approval MEDICAT ION WASTE Product Size: 500 mgProduct Wasted: ___ mg Start Date: 10/30/18 Stop Date: 11/01/18 Status: Discontinued DAPTOmycin 412.036 mg, Route: IV, Q48H, Dosing Weight 103.009, kg, Start date: 10/30/18 9:0 0:00 CDT, Duration: 30 day, Stop date: 11/27/18 9:00:00 CDT, ABX Indication: Bon e/Joint Infection Start Date: 10/30/18 Stop Date: 10/30/18 Status: Canceled DAPTOmycin 4 mg/kg, IV, Q24H, 0 Refill(s) Start Date: 10/30/18 Stop Date: 11/07/18 Status: Discontinued dexamethasone (ANES) Route: IV, Drug form: INJ, ONCE, Stop date: 10/31/18 11:14:00 CDT Start Date: 10/31/18 Stop Date: 10/31/18 Status: Completed Dextrose 50% Syringe 25 gm, 50 mL, Route: IVP, Drug Form: INJ, Dosing Weight 103.009, kg, PRN, PRN Bl ood Glucose Results, Start date: 10/30/18 3:43:00 CDT, Duration: 30 day, Stop da te: 11/29/18 3:42:00 CDT Start Date: 10/30/18 Stop Date: 11/07/18 Status: Discontinued Dextrose 50% Syringe 12.5 gm, 25 mL, Route: IVP, Drug Form: INJ, Dosing Weight 103.009, kg, PRN, PRN Blood Glucose Results, Start date: 10/30/18 3:43:00 CDT, Duration: 30 day, Stop date: 11/29/18 3:42:00 CDT Start Date: 10/30/18 Stop Date: 11/07/18 Status: Discontinued DULoxetine 60 mg, 1 cap, Route: PO, Drug form: DRC, Daily, Dosing Weight 103.009, kg, Start date: 10/30/18 9:00:00 CDT, Duration: 30 day, Stop date: 11/28/18 9:00:00 CDT Notes: (Same as: Cymbalta) (Do Not Crush) Start Date: 10/30/18 Stop Date: 11/07/18 Status: Discontinued enoxaparin 40 mg/0.4 mL subcutaneous solution 40 mg, SUB-Q, Daily, X 30 day, # 30 ea, 0 Refill(s), other Start Date: 11/07/18 Stop Date: 12/07/18 Status: Ordered ePHEDrine (ANES) Route: IV, Drug form: INJ, ONCE, Stop date: 10/31/18 11:14:00 CDT Start Date: 10/31/18 Stop Date: 10/31/18 Status: Completed esmolol (ANES) Route: IV, Drug form: INJ, ONCE, Stop date: 11/03/18 16:18:00 CDT Start Date: 11/03/18 Stop Date: 11/03/18 Status: Completed fentaNYL (ANES) Route: IV, Drug form: INJ, ONCE, Stop date: 11/03/18 15:43:00 CDT Start Date: 11/03/18 Stop Date: 11/03/18 Status: Completed fentaNYL (ANES) Route: IV, Drug form: INJ, ONCE, Stop date: 11/07/18 11:35:00 CDT Start Date: 11/07/18 Stop Date: 11/07/18 Status: Completed fentaNYL (ANES) Route: IV, Drug form: INJ, ONCE, Stop date: 10/31/18 11:14:00 CDT Start Date: 10/31/18 Stop Date: 10/31/18 Status: Completed gabapentin 300 mg oral capsule 300 mg, Route: PO, Drug form: CAP, ONCE, Dosing Weight 103.009, kg, Start date: 11/03/18 19:53:00 CDT, Stop date: 11/03/18 19:53:00 CDT Start Date: 11/03/18 Stop Date: 11/03/18 Status: Completed glucagon 1 mg, Route: IM, Drug form: PDR/INJ, PRN, Dosing Weight 103.009, kg, PRN Blood G lucose Results, Start date: 10/30/18 3:43:00 CDT, Duration: 30 day, Stop date: 0 11/29/18 3:42:00 CDT Start Date: 10/30/18 Stop Date: 11/07/18 Status: Discontinued glycopyrrolate (ANES) Route: IV, Drug form: INJ, ONCE, Stop date: 10/31/18 11:08:00 CDT Start Date: 10/31/18 Stop Date: 10/31/18 Status: Completed hydromorphone 0.5 mg, 0.25 mL, Route: IVP, Drug form: INJ, ONCE, Dosing Weight 103.009, kg, Pr iority: STAT, Start date: 11/04/18 8:43:00 CDT, Stop date: 11/04/18 8:43:00 CDT Notes: Same as Dilaudid Start Date: 11/04/18 Stop Date: 11/04/18 Status: Completed insulin glargine 30 unit, 0.3 mL, Route: SUB-Q, Drug form: PEYTON MILLER (Insulin), Dosing Weight 103 .009, kg, Start date: 10/30/18 7:30:00 CDT, Duration: 30 day, Stop date: 7:30:00 CDT Start Date: 10/30/18 Stop Date: 11/02/18 Status: Discontinued insulin lispro 5 unit, 0.05 mL, Route: SUB-Q, Drug form: SOLN, TID-Before Meals, Dosing Weight 103.009, kg, Start date: 11/01/18 7:30:00 CDT, Duration: 30 day, Stop date: 03/12 16:30:00 CDT Notes: (Same as: Humalog) Roll in palms of hands gently; Do not shake vigorously . WASTE: F/P - Black; E - Municipal Trash BinStable for 28 days at room [facility].Expires in days from Date Start Date: 11/01/18 Stop Date: 11/02/18 Status: Discontinued insulin lispro 2 unit, 0.02 mL, Route: SUB-Q, Drug form: SOLN, TID-Before Meals, Dosing Weight 103.009, kg, PRN Blood Glucose Results, Start date: 10/30/18 3:43:00 CDT, Durati on: 30 day, Stop date: 11/29/18 3:42:00 CDT Notes: (Same as: Humalog) Roll in palms of hands gently; Do not shake vigorously . WASTE: F/P - Black; E - Municipal Trash BinStable for 28 days at room [facility].Expires in days from Date Start Date: 10/30/18 Stop Date: 11/07/18 Status: Discontinued insulin lispro 1 unit, 0.01 mL, Route: SUB-Q, Drug form: SOLN, TID-Before Meals, Dosing Weight 103.009, kg, PRN Blood Glucose Results, Start date: 10/30/18 3:43:00 CDT, Durati on: 30 day, Stop date: 11/29/18 3:42:00 CDT Notes: (Same as: Humalog) Roll in palms of hands gently; Do not shake vigorously . WASTE: F/P - Black; E - Municipal Trash BinStable for 28 days at room [facility].Expires in days from Date Start Date: 10/30/18 Stop Date: 11/07/18 Status: Discontinued insulin lispro 5 unit, 0.05 mL, Route: SUB-Q, Drug form: SOLN, TID-Before Meals, Dosing Weight 103.009, kg, PRN Blood Glucose Results, Start date: 10/30/18 3:43:00 CDT, Durati on: 30 day, Stop date: 11/29/18 3:42:00 CDT Notes: (Same as: Humalog) Roll in palms of hands gently; Do not shake vigorously . WASTE: F/P - Black; E - Municipal Trash BinStable for 28 days at [facility].Expires in days from Date Start Date: 10/30/18 Stop Date: 11/07/18 Status: Discontinued insulin lispro 4 unit, 0.04 mL, Route: SUB-Q, Drug form: SOLN, TID-Before Meals, Dosing Weight 103.009, kg, PRN Blood Glucose Results, Start date: 10/30/18 3:43:00 CDT, Durati on: 30 day, Stop date: 11/29/18 3:42:00 CDT Notes: (Same as: Humalog) Roll in palms of hands gently; Do not shake vigorously . WASTE: F/P - Black; E - Municipal Trash BinStable for 28 days at room [facility].Expires in days from Date Start Date: 10/30/18 Stop Date: 11/07/18 Status: Discontinued insulin lispro 3 unit, 0.03 mL, Route: SUB-Q, Drug form: SOLN, TID-Before Meals, Dosing Weight 103.009, kg, PRN Blood Glucose Results, Start date: 10/30/18 3:43:00 CDT, Durati on: 30 day, Stop date: 11/29/18 3:42:00 CDT Notes: (Same as: Humalog) Roll in palms of hands gently; Do not shake vigorously . WASTE: F/P - Black; E - Municipal Trash BinStable for 28 days at room [facility].Expires in days from Date Start Date: 10/30/18 Stop Date: 11/07/18 Status: Discontinued Isolyte S PH 7.4 (ANES) 1000 mL Route: IV, Total Volume: 1,000, Start date: 11/07/18 10:43:00 CDT, Stop date: 11:43:00 CDT Start Date: 11/07/18 Stop Date: 11/07/18 Status: Completed Lactated Ringers Injection IV (ANES) 1000 mL Route: IV, Total Volume: 1,000, Start date: 11/03/18 15:00:00 CDT, Stop date: 16:00:00 CDT Start Date: 11/03/18 Stop Date: 11/03/18 Status: Completed Lactated Ringers Injection IV (ANES) 1000 mL Route: IV, Total Volume: 1,000, Start date: 10/31/18 9:55:00 CDT, Stop date: 04/11 10:55:00 CDT Start Date: 10/31/18 Stop Date: 10/31/18 Status: Completed Lactated Ringers IV 1,000 mL 1,000 mL, Rate: 125 ml/hr, Infuse over: 8 hr, Route: IV, Dosing Weight 103.009 k g, Total Volume: 1,000, Start date: 11/03/18 17:13:00 CDT, Duration: 30 day, Sto p date: 12/03/18 17:12:00 CDT, 2.38, m2 Start Date: 11/03/18 Stop Date: 11/07/18 Status: Discontinued lidocaine (ANES) Route: IV, Drug form: INJ, ONCE, Stop date: 11/03/18 15:43:00 CDT Start Date: 11/03/18 Stop Date: 11/03/18 Status: Completed lidocaine (ANES) Route: IV, Drug form: INJ, ONCE, Stop date: 10/31/18 11:14:00 CDT Start Date: 10/31/18 Stop Date: 10/31/18 Status: Completed Lovenox 30 mg, 0.3 mL, Route: SUB-Q, Drug form: INJ, Daily, Dosing Weight 103.009, kg, S tart date: 11/04/18 9:00:00 CDT, Duration: 30 day, Stop date: 12/03/18 9:00:00 C DT Notes: (Same as: Lovenox) Start Date: 11/04/18 Stop Date: 11/07/18 Status: Discontinued Lyrica 25 mg, 1 cap, Route: PO, Drug form: CAP, Daily, Dosing Weight 103.009, kg, Start date: 10/30/18 9:00:00 CDT, Duration: 30 day, Stop date: 11/28/18 9:00:00 CDT Notes: (Same as: Lyrica) Start Date: 10/30/18 Stop Date: 11/07/18 Status: Discontinued meropenem 500 mg, Route: IVPB, Drug form: PDR/INJ, ABXQ6H, Dosing Weight 103.009, kg, Exte nded infusion, infuse over 3 hours, Start date: 10/30/18 5:00:00 CDT, Stop date: 11/28/18 22:00:00 CDT, ABX Indication: Bone/Joint Infection Notes: Same as Merrem MEDICATION WASTE Product Size: 500 mgProduct Wast ed: ___ mg Start Date: 10/30/18 Stop Date: 11/01/18 Status: Discontinued meropenem IV, Q8H, 0 Refill(s) Start Date: 10/30/18 Stop Date: 11/07/18 Status: Discontinued metoprolol tartrate 50 mg, 1 tab, Route: PO, Drug form: TAB, Q12H, Dosing Weight 103.009, kg, Start date: 10/30/18 9:00:00 CDT, Duration: 30 day, Stop date: 11/28/18 21:00:00 CDT Notes: (Same as: Lopressor) Start Date: 10/30/18 Stop Date: 11/07/18 Status: Discontinued metoprolol tartrate 50 mg oral tablet 50 mg=1 tab, PO, BID, # 180 tab, 0 Refill(s) Start Date: 10/30/18 Status: Ordered midazolam (ANES) Route: IV, Drug form: SOLN, ONCE, Stop date: 10/31/18 11:14:00 CDT Start Date: 10/31/18 Stop Date: 10/31/18 Status: Completed morphine Sulfate 2 mg, 0.5 mL, Route: IVP, Drug form: SOLN, ONCE, Dosing Weight 103.009, kg, Star t date: 11/03/18 21:40:00 CDT, Stop date: 11/03/18 21:40:00 CDT Notes: (Same as:MORPhine Sulfate) Start Date: 11/03/18 Stop Date: 11/03/18 Status: Completed neostigmine (ANES) Route: IV, Drug form: INJ, ONCE, Stop date: 10/31/18 11:34:00 CDT Start Date: 10/31/18 Stop Date: 10/31/18 Status: Completed NIFEdipine 90 mg oral tablet, extended release 90 mg, 1 tab, Route: PO, Drug form: ERTAB, Daily, Dosing Weight 103.009, kg, Sta rt date: 10/30/18 9:00:00 CDT, Duration: 30 day, Stop date: 11/28/18 9:00:00 CDT Notes: (Same as: Adalat CC,Procardia XL)"Do Not Crush" "Avoid grapefruit and gr apefruit juice" Start Date: 10/30/18 Stop Date: 11/07/18 Status: Discontinued norepinephrine (ANES) Route: IV, Drug form: INJ, ONCE, Stop date: 10/31/18 11:14:00 CDT Start Date: 10/31/18 Stop Date: 10/31/18 Status: Completed ondansetron (ANES) Route: IV, Drug form: INJ, ONCE, Stop date: 11/03/18 17:05:00 CDT Start Date: 11/03/18 Stop Date: 11/03/18 Status: Completed pantoprazole 40 mg, 1 tab, Route: PO, Drug form: ECTAB, Before Breakfast, Dosing Weight 103.0 09, kg, Start date: 11/01/18 7:30:00 CDT, Duration: 30 day, Stop date: 11/30/18 7:30:00 CDT Notes: Tablet should not be chewed or crushed.(Same as: Protonix) Start Date: 11/01/18 Stop Date: 11/07/18 Status: Discontinued pantoprazole 40 mg oral enteric coated tablet 40 mg=1 tab, PO, Before Breakfast, 0 Refill(s) Start Date: 11/07/18 Status: Ordered phenylephrine (ANES) Route: IV, Drug form: INJ, ONCE, Stop date: 11/03/18 16:03:00 CDT Start Date: 11/03/18 Stop Date: 11/03/18 Status: Completed phenylephrine (ANES) Route: IV, Drug form: INJ, ONCE, Stop date: 10/31/18 11:08:00 CDT Start Date: 10/31/18 Stop Date: 10/31/18 Status: Completed propofol (ANES) Route: IV, Drug form: INJ, ONCE, Stop date: 11/03/18 15:43:00 CDT Start Date: 11/03/18 Stop Date: 11/03/18 Status: Completed propofol (ANES) Route: IV, Drug form: INJ, ONCE, Stop date: 10/31/18 11:14:00 CDT Start Date: 10/31/18 Stop Date: 10/31/18 Status: Completed propofol (ANES) Route: IV, Drug form: INJ, ONCE, Stop date: 11/07/18 11:40:00 CDT Start Date: 11/07/18 Stop Date: 11/07/18 Status: Completed rocuronium (ANES) Route: IV, Drug form: INJ, ONCE, Stop date: 11/03/18 15:43:00 CDT Start Date: 11/03/18 Stop Date: 11/03/18 Status: Completed rocuronium (ANES) Route: IV, Drug form: INJ, ONCE, Stop date: 10/31/18 11:14:00 CDT Start Date: 10/31/18 Stop Date: 10/31/18 Status: Completed Sodium Chloride 0.9% (Bolus) IV 500 mL, 1500 ml/hr, Infuse Over: 20 minutes, Route: IV, 500, Drug form: INJ, ONC E, Dosing Weight 103.009 kg, Start date: 11/07/18 11:27:00 CDT, Stop date: 11/07 11:27:00 CDT Start Date: 11/07/18 Stop Date: 11/07/18 Status: Discontinued Sodium Chloride 0.9% (titrate) 250 mL 250 mL, Rate: To prime line and flush remaining blood products., Dosing Weight 1 03.009, kg, Route: IV, Total Volume: 250, Priority: Routine, Start Date: 9 11:03:00 CDT, Duration: 30 day, Stop date: 11/30/18 11:02:00 CDT, Replace Ever y: 24 hr Start Date: 10/31/18 Stop Date: 10/31/18 Status: Discontinued Sodium Chloride 0.9% IV (ANES) 1000 mL Route: IV, Total Volume: 1,000, Start date: 11/03/18 15:37:00 CDT, Stop date: 16:37:00 CDT Start Date: 11/03/18 Stop Date: 11/03/18 Status: Completed Sodium Chloride 0.9% IV 1,000 mL 1,000 mL, Rate: 125 ml/hr, Infuse over: 8 hr, Route: IV, Dosing Weight 103.009 k g, Total Volume: 1,000, Start date: 11/07/18 11:27:00 CDT, Duration: 30 day, Sto p date: 12/07/18 11:26:00 CDT, 2.38, m2 Start Date: 11/07/18 Stop Date: 11/07/18 Status: Discontinued sugammadex 200 mg, 2 mL, Route: IV, Drug form: SOLN, ONCALL, Start date: 11/03/18 16:22:00 CDT, Duration: 1 doses or times, Stop date: 11/03/18 16:22:00 CDT Notes: (Same as: Bridion) Start Date: 11/03/18 Stop Date: 11/07/18 Status: Discontinued sugammadex (ANES) Route: IV, Drug form: SOLN, ONCE, Stop date: 11/03/18 17:10:00 CDT Start Date: 11/03/18 Stop Date: 11/03/18 Status: Completed tamsulosin 0.4 mg, 1 cap, Route: PO, Drug form: CAP, Daily, Dosing Weight 103.009, kg, Star t date: 10/30/18 9:00:00 CDT, Duration: 30 day, Stop date: 11/28/18 9:00:00 CDT Notes: (Same As: Flomax) "Do Not Crush" Start Date: 10/30/18 Stop Date: 11/07/18 Status: Discontinued torsemide 20 mg, 1 tab, Route: PO, Drug form: TAB, Daily, Dosing Weight 103.009, kg, Start date: 10/30/18 9:00:00 CDT, Duration: 30 day, Stop date: 11/28/18 9:00:00 CDT Notes: (Same As: Demadex) Start Date: 10/30/18 Stop Date: 11/02/18 Status: Discontinued Tums 1,500 mg, 3 tab, Route: CHEW, Drug form: CHEWTAB, ONCE, Dosing Weight 103.009, k g, Start date: 11/01/18 5:58:00 CDT, Stop date: 11/01/18 5:58:00 CDT Notes: (Same As: Tums)Calcium Carbonate 500 wf=494 mg elemental calcium Dose=_ mg calcium carbonate ( mg elemental calcium) Start Date: 11/01/18 Stop Date: 11/01/18 Status: Completed Results 1 2 3 Most recent to oldest [Reference Range]: 5.9 K/CMM (11/07/18 12:38 AM) 5.7 K/CMM (11/05/18 6:22 AM) 5.3 K/CMM (11/03/18 4:04 AM) Neutrophils # [1.5-8.1 K/CMM] 1.2 K/CMM (11/07/18 12:38 AM) 1.0 K/CMM (11/05/18 6:22 AM) 0.8 K/CMM *LOW* (11/03/18 4:04 AM) Lymphocytes # [1.0-5.5 K/CMM] 0.5 K/CMM (11/07/18 12:38 AM) 0.6 K/CMM (11/05/18 6:22 AM) 0.5 K/CMM (11/03/18 4:04 AM) Monocytes # [0.0-0.8 K/CMM] 0.3 K/CMM (11/07/18 12:38 AM) 0.2 K/CMM (11/05/18 6:22 AM) 0.2 K/CMM (11/03/18 4:04 AM) Eosinophils # [0.0-0.5 K/CMM] 0.1 K/CMM (11/07/18 12:38 AM) 0.1 K/CMM (11/05/18 6:22 AM) 0.1 K/CMM (11/03/18 4:04 AM) Basophils # [0.0-0.2 K/CMM] 53 mL/min/1.73m2 1 *NA* (11/07/18 12:38 AM) 42 mL/min/1.73m2 2 *NA* (11/06/18 6:30 AM) 39 mL/min/1.73m2 3 *NA* (11/05/18 6:22 AM) eGFR Product available (11/02/18 10:53 AM) RBC product O NEG *Unknown* (11/07/18 12:38 AM) O NEG *Unknown* (11/03/18 4:04 AM) O NEG *Unknown* (10/30/18 4:46 AM) ABO/Rh Negative (11/07/18 12:38 AM) Negative (11/03/18 4:04 AM) Negative (10/30/18 4:46 AM) Antibody Scrn 7.3 mEq/L *LOW* (11/07/18 12:38 AM) 7.5 mEq/L *LOW* (11/06/18 6:30 AM) 9.6 mEq/L *LOW* (11/05/18 6:22 AM) AGAP [10.0-20.0 mEq/L] 1+ *ABN* (11/07/18 12:38 AM) Anisocyte [None Seen] 1.4 % *HI* (11/07/18 12:38 AM) 1.2 % *HI* (11/05/18 6:22 AM) 0.8 % (11/03/18 4:04 AM) Basophils [0.0-1.0 %] 23 mg/dL *HI* (11/07/18 12:38 AM) 25 mg/dL *HI* (11/06/18 6:30 AM) 25 mg/dL *HI* (11/05/18 6:22 AM) BUN [7-22 mg/dL] 8.9 mg/dL (11/07/18 12:38 AM) 8.9 mg/dL (11/06/18 6:30 AM) 8.4 mg/dL *LOW* (11/05/18 6:22 AM) Calcium Lvl [8.5-10.5 mg/dL] 28 unit/L (10/30/18 4:46 AM) Total CK [12-191 unit/L] 112 mEq/L *HI* (11/07/18 12:38 AM) 111 mEq/L *HI* (11/06/18 6:30 AM) 112 mEq/L *HI* (11/05/18 6:22 AM) Chloride Lvl [95-109 mEq/L] 26 mEq/L (11/07/18 12:38 AM) 25 mEq/L (11/06/18 6:30 AM) 25 mEq/L (11/05/18 6:22 AM) CO2 [24-32 mEq/L] 1.36 mg/dL (11/07/18 12:38 AM) 1.64 mg/dL *HI* (11/06/18 6:30 AM) 1.73 mg/dL *HI* (11/05/18 6:22 AM) Creatinine Lvl [0.50-1.40 mg/dL] 76.6 mg/L *HI* (10/30/18 4:46 AM) CRP [<=2.9 mg/L] 4.0 % (11/07/18 12:38 AM) 2.9 % (11/05/18 6:22 AM) 2.7 % (11/03/18 4:04 AM) Eosinophils [0.0-4.0 %] 103 mg/dL *HI* (11/07/18 12:38 AM) 122 mg/dL *HI* (11/06/18 6:30 AM) 123 mg/dL *HI* (11/05/18 6:22 AM) Glucose Lvl [70-99 mg/dL] 25.2 % *LOW* (11/07/18 12:38 AM) 25.9 % *LOW* (11/05/18 6:22 AM) 21.6 % *LOW* (11/03/18 4:04 AM) Hct [42.0-54.0 %] 8.1 g/dL *LOW* (11/07/18 12:38 AM) 8.4 g/dL *LOW* (11/05/18 6:22 AM) 8.7 g/dL *LOW* (11/04/18 4:02 AM) Hgb [14.0-18.0 g/dL] 5.8 % *HI* (10/30/18 4:46 AM) Hgb A1C [<=5.6 %] 1.23 *HI* (11/07/18 12:38 AM) 1.31 *HI* (10/30/18 4:46 AM) INR [0.85-1.17] 4.3 mEq/L (11/07/18 12:38 AM) 4.5 mEq/L (11/06/18 6:30 AM) 4.6 mEq/L (11/05/18 6:22 AM) Potassium Lvl [3.5-5.1 mEq/L] 14.4 % *LOW* (11/07/18 12:38 AM) 13.4 % *LOW* (11/05/18 6:22 AM) 12.3 % *LOW* (11/03/18 4:04 AM) Lymphocytes [20.0-40.0 %] 28.6 pg (11/07/18 12:38 AM) 28.5 pg (11/05/18 6:22 AM) 28.3 pg (11/03/18 4:04 AM) MCH [27.0-31.0 pg] 32.3 g/dL (11/07/18 12:38 AM) 32.3 g/dL (11/05/18 6:22 AM) 33.2 g/dL (11/03/18 4:04 AM) MCHC [32.0-36.0 g/dL] 88.7 fL (11/07/18 12:38 AM) 88.4 fL (11/05/18 6:22 AM) 85.4 fL (11/03/18 4:04 AM) MCV [80.0-94.0 fL] 6.6 % (11/07/18 12:38 AM) 7.8 % (11/05/18 6:22 AM) 6.6 % (11/03/18 4:04 AM) Monocytes [2.0-12.0 %] 7.6 fL (11/07/18 12:38 AM) 7.5 fL (11/05/18 6:22 AM) 7.8 fL (11/03/18 4:04 AM) MPV [7.4-10.4 fL] 141 mEq/L (11/07/18 12:38 AM) 139 mEq/L (11/06/18 6:30 AM) 142 mEq/L (11/05/18 6:22 AM) Sodium Lvl [135-145 mEq/L] 390 K/CMM (11/07/18 12:38 AM) 397 K/CMM (11/05/18 6:22 AM) 368 K/CMM (11/03/18 4:04 AM) Platelet [133-450 K/CMM] 73.6 % (11/07/18 12:38 AM) 74.7 % (11/05/18 6:22 AM) 77.6 % *HI* (11/03/18 4:04 AM) Segs [45.0-75.0 %] 15.3 seconds *HI* (11/07/18 12:38 AM) 16.0 seconds *HI* (10/30/18 4:46 AM) PT [12.0-14.7 seconds] 39.1 seconds *HI* (11/07/18 12:38 AM) 29.7 seconds (10/30/18 4:46 AM) PTT [22.9-35.8 seconds] 2.84 M/CMM *LOW* (11/07/18 12:38 AM) 2.93 M/CMM *LOW* (11/05/18 6:22 AM) 2.53 M/CMM *LOW* (11/03/18 4:04 AM) RBC [4.70-6.10 M/CMM] 21.1 % *HI* (11/07/18 12:38 AM) 20.1 % *HI* (11/05/18 6:22 AM) 19.6 % *HI* (11/03/18 4:04 AM) RDW [11.5-14.5 %] 65 mm/hr *HI* (10/30/18 4:46 AM) Sed Rate [0-15 mm/hr] 29.7 ng/mL *LOW* (10/30/18 4:46 AM) Vitamin D, 25-OH, Total [30.0-100.0 ng/mL] 8.0 K/CMM (11/07/18 12:38 AM) 7.7 K/CMM (11/05/18 6:22 AM) 6.9 K/CMM (11/03/18 4:04 AM) WBC [3.7-10.4 K/CMM] 1Result Comment: The eGFR is calculated using [...] be mul tiplied by the estimated BMI. Immunizations Given and Recorded Vaccine Date Status Refusal Reason influenza virus vaccine, inactivated 04/08/18 Recorded pneumococcal 13-valent vaccine 04/11/17 Given Hx influenza vaccine-unspecified1 04/26/14 Given 1Result Comment: done. Migrated from [employer] ; Data migrated from [employer] on 07/26/2015. Procedures Procedure Date Related Diagnosis [...] No entered on: 10/30/18 Assessment and Plan Extracted from: Title: Vascular Surgery Author: Nighat Nick NP Date: [...] placement tomorrow Further recommendations post procedure Extracted from: Title: History and Physical Author: [...] DVT(I82.401) Off apixaban for a week at [place] due to active bleeding. 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 12.Stroke(I63.9) Resume aspirin 81mg daily, c/w lipitor qhs. 13.Gout(M10.9) c/w allopurinol daily. Left leg sequential compression device. Hold off on DVT ppx given active bleeding reported from RLE wounds. Return to [facility] pending final recommendations by ORS regarding possible BKA during this hospitalization.
--- OUTSIDE RECORDS SUMMARY | 2019-02-22 08:12 | XMS REPORT | Summary of Care ---
Author Author [facility] Organization [facility] Address Unknown Phone Unavailable Encounter RAFIA Valiente(FIN) [id number] Date(s): 02/13/18 - 02/14/18 [facility] [address] [place], [address] [place] [address] [phone] Vital Signs No data available for this [...] Originally documented as HYDRALAZINE HCL. dyspnea Medications potassium chloride 20 mEq oral tablet, extended release See Instructions, # 30 ea, Refill(s) 10, TAKE TWO (2) TABLET(S) BY MOUTH ONCE A DAY FOR FOUR DAYS. THEN DECREASE TO ONE(1) TABLET(S) BY MOUTH DAILY., Pharmacy: [facility] [place] Start Date: 02/13/18 Stop Date: 08/06/18 Status: Discontinued Results No data available for this section Immunizations Given and Recorded Vaccine Date Status Refusal Reason influenza virus vaccine, inactivated 04/08/18 Recorded pneumococcal 13-valent vaccine 04/11/17 Given Hx influenza vaccine-unspecified1 04/26/14 Given 1Result Comment: done. Migrated from [employer] ; Data migrated from [employer] on 07/26/2015. Procedures Procedure Date Related Diagnosis [...]
--- OUTSIDE RECORDS SUMMARY | 2019-02-22 08:12 | XMS REPORT | Summary of Care ---
Author Author [facility] Primary [facility] Organization [facility] Address Unknown Phone Unavailable Encounter RAFIA Aliceareulalia(FIN) [id number] Date(s): 10/06/18 - 10/06/18 [facility] [address] [place] [address]- Attending Physician: Nic Paz MD Vital Signs [...] Migrated from [employer] ; Data migrated from [employer] on 07/26/2015. Procedures Procedure Date Related Diagnosis [...]
--- OUTSIDE RECORDS SUMMARY | 2019-02-22 08:12 | XMS REPORT | Summary of Care ---
Author Author [facility] Primary [facility] Organization [facility] Address Unknown Phone Unavailable Encounter RAFIA Valiente(FIN) [id number] Date(s): 12/04/17 - 12/05/17 [facility] Primary [facility] [address], [address] [place] [address] [phone] Vital Signs No data available for this [...] Originally documented as HYDRALAZINE HCL. dyspnea Medications torsemide 20 mg oral tablet See Instructions, # 180 ea, Refill(s) 1, TAKE ONE (1) TABLET(S) BY MOUTH TWICE A DAY., Pharmacy: [facility] [place] Start Date: 12/04/17 Status: Ordered Results No data available for this section Immunizations Given and Recorded Vaccine Date Status Refusal Reason pneumococcal 13-valent vaccine 04/11/17 Given Hx influenza vaccine-unspecified1 04/26/14 Given 1Result Comment: done. Migrated from [facility] ; Data migrated from [employer] on 07/26/2015. Procedures Procedure Date Related Diagnosis [...]
--- OUTSIDE RECORDS SUMMARY | 2019-02-22 08:13 | XMS REPORT | Summary of Care ---
Author Author [facility] Organization [facility] Address Unknown Phone Unavailable Encounter RAFIA Valiente(CORINNA) [id number] Date(s): 07/28/18 - 08/06/18 [facility] [address] [facility] provided by [facility] [place] [address]- Encounter Diagnosis Hepatomegaly with splenomegaly, not elsewhere classified (Final) - Discharge Disposition: Home or Self Care Attending Physician: Lore Cai MD Admitting Physician: Elizabeth Nicole MD Vital Signs 1 2 3 Most recent to oldest [Reference Range]: 198.12 cm (08/01/18 3:47 PM) 198.12 cm (07/30/18 3:47 AM) 198.12 cm (07/28/18 11:01 PM) Height 98.0 DegF (08/06/18 4:43 PM) 97.7 DegF (08/06/18 1:00 PM) 97.6 DegF (08/06/18 9:02 AM) Temperature Oral [96.4-99.1 DegF] 125/67 mmHg (08/06/18 4:43 PM) 131/73 mmHg (08/06/18 1:00 PM) 161/78 mmHg *HI* (08/06/18 9:02 AM) Blood Pressure [90-140/60-90 mmHg] 20 BRMIN (08/06/18 4:43 PM) 20 BRMIN (08/06/18 1:00 PM) 20 BRMIN (08/06/18 9:02 AM) Respiratory Rate [14-20 BRMIN] 86 bpm (08/06/18 4:43 PM) 82 bpm (08/06/18 1:00 PM) 90 bpm (08/06/18 9:02 AM) Peripheral Pulse Rate [60-100 bpm] 115.2 kg (08/01/18 3:47 PM) 115.2 kg (07/30/18 3:47 AM) 115.2 kg (07/28/18 11:01 PM) Weight 29.35 m2 (07/28/18 11:01 PM) 30.11 m2 (07/28/18 6:45 PM) Body Mass Index Problem List Condition [...] documented as HYDRALAZINE HCL. dyspnea Medications acetaminophen 1,000 mg, 2 tab, Route: PO, Drug form: TAB, Q6H, Dosing Weight 115.2, kg, Start date: 07/30/18 6:00:00 CUSTOM GARMENT DESIGNER, Duration: 30 day, Stop date: 08/29/18 0:00:00 CUSTOM GARMENT DESIGNER Notes: Max acetaminophen 4000 mg/day (4 gm/day). (Same as: Tylenol Extra Streng th) Start Date: 07/30/18 Stop Date: 07/30/18 Status: Discontinued acetaminophen 650 mg, 2 tab, Route: PO, Drug form: TAB, Q4H, Dosing Weight 118.182, kg, PRN Fo r Temp > 100.4 F, Start date: 07/28/18 21:35:00 CUSTOM GARMENT DESIGNER, Duration: 30 day, Stop date: 08/27/18 21:34:00 CUSTOM GARMENT DESIGNER Notes: Do not exceed 4 gm/day. (Same as: Tylenol) Start Date: 07/28/18 Stop Date: 07/30/18 Status: Discontinued allopurinol 300 mg, 1 tab, Route: PO, Drug form: TAB, Daily, Dosing Weight 118.182, kg, Star t date: 07/29/18 9:00:00 CUSTOM GARMENT DESIGNER, Duration: 30 day, Stop date: 08/27/18 9:00:00 CUSTOM GARMENT DESIGNER Notes: (Same as: Zyloprim) Start Date: 07/29/18 Stop Date: 08/06/18 Status: Discontinued allopurinol 300 mg oral tablet 300 mg=1 tab, PO, Daily, # 30 tab, 0 Refill(s) Start Date: 08/06/18 Stop Date: 09/05/18 Status: Ordered apixaban 5 mg oral tablet 5 mg=1 tab, PO, Q12H, # 60 tab, 0 Refill(s) Start Date: 08/06/18 Stop Date: 09/05/18 Status: Ordered carvedilol 25 mg, 1 tab, Route: PO, Drug form: TAB, Daily, Dosing Weight 118.182, kg, Start date: 07/29/18 9:00:00 CUSTOM GARMENT DESIGNER, Duration: 30 day, Stop date: 08/27/18 9:00:00 CUSTOM GARMENT DESIGNER Notes: Give with food. (Same As: Coreg) Start Date: 07/29/18 Stop Date: 07/31/18 Status: Discontinued carvedilol 25 mg, 1 tab, Route: PO, Drug form: TAB, BID, Dosing Weight 118.182, kg, Start d ate: 07/31/18 21:00:00 CUSTOM GARMENT DESIGNER, Duration: 30 day, Stop date: 08/30/18 9:00:00 CUSTOM GARMENT DESIGNER Notes: Give with food. (Same As: Coreg) Start Date: 07/31/18 Stop Date: 08/06/18 Status: Discontinued carvedilol 25 mg oral tablet 25 mg=1 tab, PO, BID, # 60 tab, 0 Refill(s) Start Date: 08/06/18 Stop Date: 09/05/18 Status: Ordered cefepime 2 gm, Route: IV, Drug form: INJ, [id number], Dosing Weight 115.2, kg, Priority: NOW , Start date: 07/30/18 3:47:00 CUSTOM GARMENT DESIGNER, Duration: 30 day, Stop date: 08/28/18 16:00: 00 CUSTOM GARMENT DESIGNER, ABX Indication: Bone/Joint Infection Notes: (Same as: Maxipime) MEDICATION WASTE Product Size: 2000 mgProduc t Wasted: ___ mg Start Date: 07/30/18 Stop Date: 07/30/18 Status: Discontinued cefepime 1 gm, Route: IVP, Drug form: INJ, ONCE, Dosing Weight 118.182, kg, Start date: 0 07/28/18 20:12:00 CUSTOM GARMENT DESIGNER, Stop date: 07/28/18 20:12:00 CUSTOM GARMENT DESIGNER, ABX Indication: Bacterem ia Notes: (Same As: Maxipime) MEDICATION WASTE Product Size: 1000 mgProduc t Wasted: ___ mg Start Date: 07/28/18 Stop Date: 07/28/18 Status: Completed cefepime 1 gm, Route: IV, Drug form: INJ, ABXQ8H, Dosing Weight 115.2, kg, Start date: 12:00:00 CUSTOM GARMENT DESIGNER, Duration: 30 day, Stop date: 08/29/18 4:00:00 CUSTOM GARMENT DESIGNER, ABX Chata cation: Bone/Joint Infection Notes: (Same As: Maxipime) MEDICATION WASTE Product Size: 1000 mgProduc t Wasted: ___ mg Start Date: 07/30/18 Stop Date: 07/30/18 Status: Discontinued cefepime 1 gm, Route: IVP, Drug form: INJ, ABXQ8H, Dosing Weight 115.2, kg, Start date: 0 08/01/18 16:00:00 CUSTOM GARMENT DESIGNER, Duration: 5 day, Stop date: 08/06/18 8:00:00 CUSTOM GARMENT DESIGNER, ABX Chata cation: Bone/Joint Infection Notes: (Same As: Maxipime) MEDICATION WASTE Product Size: 1000 mgProduc t Wasted: ___ mg Start Date: 08/01/18 Stop Date: 08/04/18 Status: Discontinued cephalexin 500 mg, 1 cap, Route: PO, Drug form: CAP, ONCE, Dosing Weight 118.182, kg, Prior ity: STAT, Start date: 07/28/18 19:34:00 CUSTOM GARMENT DESIGNER, Stop date: 07/28/18 19:34:00 CUSTOM GARMENT DESIGNER Notes: Take on empty stomach. (Same As: Keflex) Start Date: 07/28/18 Stop Date: 07/28/18 Status: Discontinued cloNIDine 0.1 mg oral tablet 0.1 mg, 1 tab, Route: PO, Drug form: TAB, Q12H, Dosing Weight 115.2, kg, Start d ate: 08/02/18 21:00:00 CUSTOM GARMENT DESIGNER, Duration: 30 day, Stop date: 09/01/18 9:00:00 CDT Notes: (Same As: Catapres) Start Date: 08/02/18 Stop Date: 08/04/18 Status: Discontinued cloNIDine 0.1 mg oral tablet 0.1 mg, 1 tab, Route: PO, Drug form: TAB, Daily, Dosing Weight 115.2, kg, Start date: 08/04/18 9:00:00 CUSTOM GARMENT DESIGNER, Stop date: 09/01/18 9:00:00 CDT Notes: (Same As: Catapres) Start Date: 08/04/18 Stop Date: 08/05/18 Status: Discontinued cloNIDine 0.1 mg oral tablet 0.1 mg, 1 tab, Route: PO, Drug form: TAB, TID, Dosing Weight 118.182, kg, Start date: 07/29/18 9:00:00 CUSTOM GARMENT DESIGNER, Duration: 30 day, Stop date: 08/27/18 17:00:00 CUSTOM GARMENT DESIGNER Notes: (Same As: Catapres) Start Date: 07/29/18 Stop Date: 08/02/18 Status: Discontinued clotrimazole topical 1% cream 1 appl, Route: TOP, Drug Form: CRM, Dosing Weight 115.2, kg, BID, Start date: 17:00:00 CUSTOM GARMENT DESIGNER, Duration: 30 day, Stop date: 08/29/18 9:00:00 CUSTOM GARMENT DESIGNER Notes: For external use only.(Same As: Lotrimin AF, Mycelex) Start Date: 07/30/18 Stop Date: 08/06/18 Status: Discontinued clotrimazole topical 1% cream 1 appl, TOP, BID, X 30 day, # 15 gm, 0 Refill(s) Start Date: 08/06/18 Stop Date: 09/05/18 Status: Ordered Dextrose 50% Syringe 12.5 gm, 25 mL, Route: IVP, Drug Form: INJ, Dosing Weight 118.182, kg, PRN, PRN Blood Glucose Results, Start date: 07/28/18 22:55:00 CUSTOM GARMENT DESIGNER, Duration: 30 day, Stop date: 08/27/18 22:54:00 CUSTOM GARMENT DESIGNER Start Date: 07/28/18 Stop Date: 08/06/18 Status: Discontinued Dextrose 50% Syringe 25 gm, 50 mL, Route: IVP, Drug Form: INJ, Dosing Weight 118.182, kg, PRN, PRN Bl ood Glucose Results, Start date: 07/28/18 22:55:00 CUSTOM GARMENT DESIGNER, Duration: 30 day, Stop d ate: 08/27/18 22:54:00 CUSTOM GARMENT DESIGNER Start Date: 07/28/18 Stop Date: 08/06/18 Status: Discontinued Dextrose 50% Syringe 12.5 gm, 25 mL, Route: IVP, Drug Form: INJ, Dosing Weight 118.182, kg, PRN, PRN Blood Glucose Results, Start date: 07/28/18 21:35:00 CUSTOM GARMENT DESIGNER, Duration: 30 day, Stop date: 08/27/18 21:34:00 CUSTOM GARMENT DESIGNER Start Date: 07/28/18 Stop Date: 07/28/18 Status: Discontinued Dextrose 50% Syringe 25 gm, 50 mL, Route: IVP, Drug Form: INJ, Dosing Weight 118.182, kg, PRN, PRN Bl ood Glucose Results, Start date: 07/28/18 21:35:00 CUSTOM GARMENT DESIGNER, Duration: 30 day, Stop d ate: 08/27/18 21:34:00 CUSTOM GARMENT DESIGNER Start Date: 07/28/18 Stop Date: 07/28/18 Status: Discontinued Dilaudid 0.5 mg, Route: IV, ONCE, Dosing Weight 118.182, kg, Start date: 07/28/18 21:44:0 0 CUSTOM GARMENT DESIGNER, Stop date: 07/28/18 21:44:00 CUSTOM GARMENT DESIGNER Start Date: 07/28/18 Stop Date: 07/28/18 Status: Completed DULoxetine 60 mg, 1 cap, Route: PO, Drug form: DRC, Daily, Dosing Weight 118.182, kg, Start date: 07/29/18 9:00:00 CUSTOM GARMENT DESIGNER, Duration: 30 day, Stop date: 08/27/18 9:00:00 CUSTOM GARMENT DESIGNER Notes: (Same as: Renatoalta) (Do Not Crush) Start Date: 07/29/18 Stop Date: 08/06/18 Status: Discontinued DULoxetine 60 mg oral delayed release capsule 60 mg=1 cap, PO, Daily, 0 Refill(s) Start Date: 08/06/18 Status: Ordered Eliquis 5 mg, 1 tab, Route: PO, Drug form: TAB, BID, Dosing Weight 118.182, kg, Start da te: 07/29/18 9:00:00 CUSTOM GARMENT DESIGNER, Duration: 30 day, Stop date: 08/27/18 17:00:00 CUSTOM GARMENT DESIGNER Notes: Same as: Eliquis Start Date: 07/29/18 Stop Date: 07/29/18 Status: Discontinued Eliquis 5 mg, 1 tab, Route: PO, Drug form: TAB, Q12H, Dosing Weight 115.2, kg, Start ching e: 08/02/18 9:00:00 CUSTOM GARMENT DESIGNER, Duration: 30 day, Stop date: 08/31/18 21:00:00 CDT Notes: Same as: Eliquis Start Date: 08/02/18 Stop Date: 08/06/18 Status: Discontinued fentaNYL 50 microgram, Route: IV, ONCE, Dosing Weight 115.2, kg, Start date: 07/30/18 9:5 4:00 CUSTOM GARMENT DESIGNER, Stop date: 07/30/18 9:54:00 CUSTOM GARMENT DESIGNER Start Date: 07/30/18 Stop Date: 07/30/18 Status: Completed Flagyl 500 mg, 100 mL, Route: IVPB, Drug form: INJ, ABXQ8H, Dosing Weight 115.2, kg, St art date: 08/01/18 16:00:00 CUSTOM GARMENT DESIGNER, Duration: 14 day, Stop date: 08/15/18 8:00:[address], ABX Indication: Bone/Joint Infection Start Date: 08/01/18 Stop Date: 08/04/18 Status: Discontinued Flagyl 500 mg, 100 mL, Route: IVPB, Drug form: INJ, ONCE, Dosing Weight 118.182, kg, St art date: 07/28/18 20:12:00 CUSTOM GARMENT DESIGNER, Stop date: 07/28/18 20:12:00 CUSTOM GARMENT DESIGNER, ABX Indicatio n: Bacteremia Start Date: 07/28/18 Stop Date: 07/28/18 Status: Completed Flagyl 500 mg, 100 mL, Route: IVPB, Drug form: INJ, ABXQ8H, Dosing Weight 115.2, kg, Pr iority: NOW, Start date: 07/30/18 3:47:00 CUSTOM GARMENT DESIGNER, Duration: 30 day, Stop date: 01/09 19:47:00 CUSTOM GARMENT DESIGNER, ABX Indication: Bone/Joint Infection Notes: (Same as: Flagyl) Avoid alcohol. Start Date: 07/30/18 Stop Date: 07/30/18 Status: Discontinued gabapentin 300 mg oral capsule 300 mg, Route: PO, Drug form: CAP, Q12H, Dosing Weight 115.2, kg, (CrCl 30 - 59 ml/min), Start date: 07/30/18 9:00:00 CUSTOM GARMENT DESIGNER, Duration: 30 day, Stop date: 08/28/18 21:00:00 CUSTOM GARMENT DESIGNER Start Date: 07/30/18 Stop Date: 07/30/18 Status: Canceled glucagon 1 mg, Route: IM, Drug form: PDR/INJ, PRN, Dosing Weight 118.182, kg, PRN Blood G lucose Results, Start date: 07/28/18 22:55:00 CUSTOM GARMENT DESIGNER, Duration: 30 day, Stop date: 08/27/18 22:54:00 CUSTOM GARMENT DESIGNER Start Date: 07/28/18 Stop Date: 08/06/18 Status: Discontinued glucagon 1 mg, Route: IM, Drug form: PDR/INJ, PRN, Dosing Weight 118.182, kg, PRN Blood G lucose Results, Start date: 07/28/18 21:35:00 CUSTOM GARMENT DESIGNER, Duration: 30 day, Stop date: 08/27/18 21:34:00 CUSTOM GARMENT DESIGNER Start Date: 07/28/18 Stop Date: 07/28/18 Status: Discontinued heparin Route: IVP, PRN, 4,000 unit, 4 mL, Drug form: INJ, PRN, Heparin Protocol, Start date: 07/30/18 11:48:00 CUSTOM GARMENT DESIGNER Stop date: 08/29/18 11:47:00 CUSTOM GARMENT DESIGNER, 30 day Start Date: 07/30/18 Stop Date: 08/02/18 Status: Discontinued heparin Route: IVP, PRN, 8,000 unit, 8 mL, Drug form: INJ, PRN, Heparin Protocol, Start date: 07/30/18 11:48:00 CUSTOM GARMENT DESIGNER Stop date: 08/29/18 11:47:00 CUSTOM GARMENT DESIGNER, 30 day Start Date: 07/30/18 Stop Date: 08/02/18 Status: Discontinued heparin 25,000 unit [18 unit/kg/hr] + Premix Diluent Sodium Chloride 0.45% 500 m L 500 mL, Rate: 36.32 ml/hr, Infuse over: 13.8 hr, Route: IV, Dosing Weight 100.9 kg, Total Volume: 500, Start date: 07/29/18 19:00:00 CUSTOM GARMENT DESIGNER, Duration: 30 day, Stop date: 08/28/18 18:59:00 CUSTOM GARMENT DESIGNER, 2.36, m2 Start Date: 07/29/18 Stop Date: 08/02/18 Status: Discontinued Heparin 40 unit/kg Bolus (Heparin Dosing Weight) Route: IVP, PRN, 4,000 unit, 4 mL, Drug form: INJ, PRN, Heparin Protocol, Start date: 07/29/18 19:00:00 CUSTOM GARMENT DESIGNER Stop date: 08/28/18 18:59:00 CUSTOM GARMENT DESIGNER, 30 day Start Date: 07/29/18 Stop Date: 07/30/18 Status: Discontinued Heparin 80 unit/kg Bolus (Heparin Dosing Weight) Route: IVP, PRN, 8,000 unit, 8 mL, Drug form: INJ, PRN, Heparin Protocol, Start date: 07/29/18 19:00:00 CUSTOM GARMENT DESIGNER Stop date: 08/28/18 18:59:00 CUSTOM GARMENT DESIGNER, 30 day Start Date: 07/29/18 Stop Date: 07/30/18 Status: Discontinued heparin additive 25,000 unit [18 unit/kg/hr] + Premix Diluent Dextrose 5% 500 mL 500 mL, Rate: 41.47 ml/hr, Infuse over: 12.1 hr, Route: IV, Dosing Weight 115.2 kg, Total Volume: 500 mL, Start date: 07/29/18 19:00:00 CUSTOM GARMENT DESIGNER, Duration: 30 day, S top date: 08/28/18 18:59:00 CUSTOM GARMENT DESIGNER, 2.52, m2 Start Date: 07/29/18 Stop Date: 07/29/18 Status: Deleted insulin lispro 3 unit, 0.03 mL, Route: SUB-Q, Drug form: SOLN, TID-Before Meals, Dosing Weight 118.182, kg, PRN Blood Glucose Results, Start date: 07/28/18 22:55:00 CUSTOM GARMENT DESIGNER, Durat ion: 30 day, Stop date: 08/27/18 22:54:00 CUSTOM GARMENT DESIGNER Notes: (Same as: Humalog ) Roll in palms of hands gently; Do not shake `vigorou sly. "Single Patient Use Only " WASTE: F/P - Black; E - Municipal Trash Bin St able for 28 days at room temperature.Expires in days from Da te Start Date: 07/28/18 Stop Date: 08/06/18 Status: Discontinued insulin lispro 15 unit, 0.15 mL, Route: SUB-Q, Drug form: SOLN, TID-Before Meals, Dosing Weight 118.182, kg, PRN Blood Glucose Results, Start date: 07/28/18 22:55:00 CUSTOM GARMENT DESIGNER, Dura tion: 30 day, Stop date: 08/27/18 22:54:00 CUSTOM GARMENT DESIGNER Notes: (Same as: Humalog ) Roll in palms of hands gently; Do not shake `vigorou sly. "Single Patient Use Only " WASTE: F/P - Black; E - [facility] Tr[facility] [address] able for 28 days at room temperature.Expires in days from Da te Start Date: 07/28/18 Stop Date: 08/06/18 Status: Discontinued insulin lispro 12 unit, 0.12 mL, Route: SUB-Q, Drug form: SOLN, TID-Before Meals, Dosing Weight 118.182, kg, PRN Blood Glucose Results, Start date: 07/28/18 22:55:00 CUSTOM GARMENT DESIGNER, Dura tion: 30 day, Stop date: 08/27/18 22:54:00 CUSTOM GARMENT DESIGNER Notes: (Same as: Humalog ) Roll in palms of hands gently; Do not shake `vigorou sly. "Single Patient Use Only " WASTE: F/P - Black; E - [facility] Tr[employer] [address] St able for 28 days at room temperature.Expires in days from Da te Start Date: 07/28/18 Stop Date: 08/06/18 Status: Discontinued insulin lispro 9 unit, 0.09 mL, Route: SUB-Q, Drug form: SOLN, TID-Before Meals, Dosing Weight 118.182, kg, PRN Blood Glucose Results, Start date: 07/28/18 22:55:00 CUSTOM GARMENT DESIGNER, Durat ion: 30 day, Stop date: 08/27/18 22:54:00 CUSTOM GARMENT DESIGNER Notes: (Same as: Humalog ) Roll in palms of hands gently; Do not shake `vigorou sly. "Single Patient Use Only " WASTE: F/P - Black; E - [facility] Tr[facility] [address] able for 28 days at room temperature.Expires in days from Da te Start Date: 07/28/18 Stop Date: 08/06/18 Status: Discontinued insulin lispro 6 unit, 0.06 mL, Route: SUB-Q, Drug form: SOLN, TID-Before Meals, Dosing Weight 118.182, kg, PRN Blood Glucose Results, Start date: 07/28/18 22:55:00 CUSTOM GARMENT DESIGNER, Durat ion: 30 day, Stop date: 08/27/18 22:54:00 CUSTOM GARMENT DESIGNER Notes: (Same as: Humalog ) Roll in palms of hands gently; Do not shake `vigorou sly. "Single Patient Use Only " WASTE: F/P - Black; E - [facility] Trash [address] able for 28 days at room temperature.Expires in days from Da te Start Date: 07/28/18 Stop Date: 08/06/18 Status: Discontinued Isolyte S PH-7.4 (Bolus) IV 500 mL, Route: IV, Drug form: SOLN, ONCE, Dosing Weight 118.182 kg, Start date: 07/28/18 19:53:00 CUSTOM GARMENT DESIGNER, Stop date: 07/28/18 19:53:00 CUSTOM GARMENT DESIGNER Notes: (Same as: Isolyte S PH7.4) Start Date: 07/28/18 Stop Date: 07/28/18 Status: Completed Lactated Ringers IV 1,000 mL 1,000 mL, Rate: 150 ml/hr, Infuse over: 6.7 hr, Route: IV, Dosing Weight 115.2 k g, Total Volume: 1,000, Start date: 07/29/18 19:00:00 CUSTOM GARMENT DESIGNER, Duration: 30 day, Sto p date: 08/28/18 18:59:00 CUSTOM GARMENT DESIGNER, 2.52, m2 Start Date: 07/29/18 Stop Date: 08/01/18 Status: Discontinued lidocaine 12 mL, Route: IV, ONCE, Dosing Weight 115.2, kg, Start date: 07/30/18 9:56:00 CS T, Stop date: 07/30/18 9:56:00 CUSTOM GARMENT DESIGNER Start Date: 07/30/18 Stop Date: 07/30/18 Status: Completed lidocaine 1% 50 mg, 5 mL, Route: INTRADERM, Drug Form: INJ, Dosing Weight 115.2, kg, ONCALL, For PICC line insertion., Start date: 08/06/18 13:00:00 CUSTOM GARMENT DESIGNER, Duration: 1 day, St op date: 08/07/18 12:59:00 CUSTOM GARMENT DESIGNER Notes: (Same as: Xylocaine) Start Date: 08/06/18 Stop Date: 08/06/18 Status: Discontinued lidocaine 1% 5 mL, Route: INTRADERM, Drug Form: INJ, Dosing Weight 115.2, kg, ONCALL, For PIC C line insertion., Start date: 08/04/18 7:00:00 CUSTOM GARMENT DESIGNER, Duration: 1 day, Stop date: 08/05/18 6:59:00 CUSTOM GARMENT DESIGNER Notes: Preservative free. (Same as: Xylocaine MPF) Start Date: 08/04/18 Stop Date: 08/06/18 Status: Discontinued lisinopril 40 mg, 2 tab, Route: PO, Drug form: TAB, Daily, Dosing Weight 118.182, kg, Start date: 07/29/18 9:00:00 CUSTOM GARMENT DESIGNER, Duration: 30 day, Stop date: 08/27/18 9:00:00 CUSTOM GARMENT DESIGNER Notes: (Same as: Prinivil, Zestril) Start Date: 07/29/18 Stop Date: 08/06/18 Status: Discontinued lisinopril 40 mg oral tablet 40 mg=1 tab, PO, Daily, # 90 tab, 3 Refill(s) Start Date: 08/06/18 Status: Ordered Lyrica 25 mg, 1 cap, Route: PO, Drug form: CAP, Daily, Dosing Weight 118.182, kg, Start date: 07/29/18 9:00:00 CUSTOM GARMENT DESIGNER, Duration: 30 day, Stop date: 08/27/18 9:00:00 CUSTOM GARMENT DESIGNER Notes: (Same as: Lyrica) Start Date: 07/29/18 Stop Date: 08/06/18 Status: Discontinued metolazone 5 mg oral tablet 5 mg, 1 tab, Route: PO, Drug form: TAB, Daily, Dosing Weight 118.182, kg, Start date: 07/29/18 9:00:00 CUSTOM GARMENT DESIGNER, Duration: 30 day, Stop date: 08/27/18 9:00:00 CUSTOM GARMENT DESIGNER Notes: (Same as: Zaroxolyn) Start Date: 07/29/18 Stop Date: 07/29/18 Status: Discontinued midazolam 1 mg, Route: IV, ONCE, Dosing Weight 115.2, kg, Start date: 07/30/18 9:54:00 CUSTOM GARMENT DESIGNER , Stop date: 07/30/18 9:54:00 CUSTOM GARMENT DESIGNER Start Date: 07/30/18 Stop Date: 07/30/18 Status: Completed NIFEdipine 30 mg oral tablet, extended release 30 mg, 1 tab, Route: PO, Drug form: ERTAB, Daily, Dosing Weight 115.2, kg, Start date: 08/02/18 11:00:00 CUSTOM GARMENT DESIGNER, Duration: 30 day, Stop date: 09/01/18 9:00:00 CDT Notes: (Same as: Adalat CC, Procardia XL) Give on empty stomach. Take 1 hour be fore or 2 hours after meal; "Avoid grapefruit and grapefruit juice". Do not cru sh Start Date: 08/02/18 Stop Date: 08/03/18 Status: Discontinued NIFEdipine 60 mg oral tablet, extended release 60 mg, 1 tab, Route: PO, Drug form: ERTAB, Daily, Dosing Weight 115.2, kg, Start date: 08/03/18 9:00:00 CUSTOM GARMENT DESIGNER, Duration: 30 day, Stop date: 09/01/18 9:00:00 CDT, .. Notes: (Same as: Adalat CC, Procardia XL) Give on empty stomach. Take 1 hour be fore or 2 hours after meal; "Avoid grapefruit and grapefruit juice". Do not cru sh Start Date: 08/03/18 Stop Date: 08/04/18 Status: Discontinued NIFEdipine 60 mg oral tablet, extended release 90 mg, 1 tab, Route: PO, Drug form: ERTAB, Daily, Dosing Weight 115.2, kg, Start date: 08/04/18 9:00:00 CUSTOM GARMENT DESIGNER, Duration: 30 day, Stop date: 09/02/18 9:00:00 CDT, .. Notes: (Same as: Adalat CC,Procardia XL)"Do Not Crush" "Avoid grapefruit and gr apefruit juice" Start Date: 08/04/18 Stop Date: 08/06/18 Status: Discontinued NIFEdipine 90 mg oral tablet, extended release 90 mg=1 tab, PO, Daily, .., # 30 tab, 0 Refill(s) Start Date: 08/06/18 Stop Date: 09/05/18 Status: Ordered [place] 10/325 oral tablet 1 tab, Route: PO, Drug Form: TAB, Dosing Weight 115.2, kg, Q6H, PRN Pain Score 6 -10, Start date: 07/30/18 8:44:00 CUSTOM GARMENT DESIGNER, Duration: 30 day, Stop date: 08/29/18 8:4 3:00 CUSTOM GARMENT DESIGNER Notes: Do not exceed 4gm/day of acetaminophen. (Same as: [place] 325/10) Start Date: 07/30/18 Stop Date: 08/06/18 Status: Discontinued potassium chloride 20 mEq oral tablet, extended release 20 mEq, 1 tab, Route: PO, Drug form: ERTAB, Daily, Dosing Weight 118.182, kg, St art date: 07/29/18 9:00:00 CUSTOM GARMENT DESIGNER, Duration: 30 day, Stop date: 08/27/18 9:00:00 CS T Notes: (Same as: K-Dur 20)"Do Not Crush" Give with food and full glass of water For patients unable to swallow tablet, dissolve in one half glass of water. Allo w about 2 minutes for the tablets to disintegrate. Stir before giving to prepare slurry and administer.Please exclude Patients with feeding tube less than 14 [place] (Dobhoff, J-tube etc) and pediatric and patients. Start Date: 07/29/18 Stop Date: 07/31/18 Status: Discontinued rosuvastatin 5 mg, 1 tab, Route: PO, Drug form: TAB, Bedtime, Dosing Weight 118.182, kg, Star t date: 07/29/18 21:00:00 CUSTOM GARMENT DESIGNER, Duration: 30 day, Stop date: 08/27/18 21:00:00 CS T Notes: Same as Crestor Start Date: 07/29/18 Stop Date: 08/06/18 Status: Discontinued Saline Flush 0.9% 10 mL, Route: IVP, Drug Form: INJ, Dosing Weight 115.2, kg, PRN, PRN Line Flush, Start date: 08/06/18 12:59:00 CUSTOM GARMENT DESIGNER, Duration: 30 day, Stop date: 09/05/18 13:58: 00 CDT Notes: (Same as: BD Posiflush) Start Date: 08/06/18 Stop Date: 08/06/18 Status: Discontinued Saline Flush 0.9% 10 mL, Route: IVP, Drug Form: INJ, Dosing Weight 115.2, kg, Q8H, Start date: 16:00:00 CUSTOM GARMENT DESIGNER, Duration: 30 day, Stop date: 09/05/18 8:00:00 CDT Notes: (Same as: BD Posiflush) Start Date: 08/06/18 Stop Date: 08/06/18 Status: Discontinued Saline Flush 0.9% 10 mL, Route: IVP, Drug Form: INJ, Dosing Weight 115.2, kg, Q8H, Start date: 05/12 8:00:00 CUSTOM GARMENT DESIGNER, Duration: 30 day, Stop date: 09/03/18 0:00:00 CDT Notes: Same as: BD Posiflush Sterile Start Date: 08/04/18 Stop Date: 08/06/18 Status: Discontinued Saline Flush 0.9% 10 mL, Route: IVP, Drug Form: INJ, Dosing Weight 115.2, kg, PRN, PRN Line Flush, Start date: 08/04/18 6:52:00 [employer], Duration: 30 day, Stop date: 09/03/18 7:51:00 CDT Notes: Same as: BD Posiflush Sterile Start Date: 08/04/18 Stop Date: 08/06/18 Status: Discontinued tamsulosin 0.4 mg, 1 cap, Route: PO, Drug form: CAP, Daily, Dosing Weight 118.182, kg, Star t date: 07/29/18 9:00:00 [employer], Duration: 30 day, Stop date: 08/27/18 9:00:00 [employer] Notes: (Same As: Flomax) "Do Not Crush" Start Date: 07/29/18 Stop Date: 08/06/18 Status: Discontinued torsemide 20 mg, 1 tab, Route: PO, Drug form: TAB, BID, Dosing Weight 118.182, kg, Start d ate: 07/29/18 9:00:00 [employer], Duration: 30 day, Stop date: 08/27/18 17:00:00 [employer] Notes: (Same As: Demadex) Start Date: 07/29/18 Stop Date: 07/29/18 Status: Discontinued tramadol 100 mg, 2 tab, Route: PO, Drug form: TAB, BID, Dosing Weight 118.182, kg, PRN Pa in Score 1-5, Start date: 07/28/18 21:47:00 [employer], Duration: 30 day, Stop date: 21:46:00 [employer] Notes: Not to exceed 400mg/day. (Same As: Ultram) Start Date: 07/28/18 Stop Date: 08/06/18 Status: Discontinued Tylenol with Codeine #3 oral tablet 2 tab, PO, Q4H, PRN Pain, X 7 day, # 84 tab, 0 Refill(s) Start Date: 08/06/18 Stop Date: 08/13/18 Status: Ordered vancomycin 1,000 mg, IVPB, Q24H, 0 Refill(s) Start Date: 08/06/18 Status: Ordered vancomycin 1,500 mg, 250 mL, Route: IVPB, Drug form: INJ, ONCE, Dosing Weight 118.182, kg, Start date: 07/28/18 19:56:00 [employer], Stop date: 07/28/18 19:56:00 [employer], ABX Indicat ion: Bacteremia Notes: TIME CRITICAL MEDICATIONSame as: Vancocin-NS (premixed)Infusion rate< 1000 mg: infuse over 1 [id number] - 1500 mg: infuse over 1.5 [id number] - 2000 mg: infuse over 2 hours> 2001 mg: infuse over 2.5 hours Start Date: 07/28/18 Stop Date: 07/28/18 Status: Completed vancomycin 1,000 mg, Route: IVPB, Drug form: INJ, [id number], Dosing Weight 115.2, kg, Start d ate: 08/04/18 18:00:00 CUSTOM GARMENT DESIGNER, Duration: 20 day, Stop date: 08/24/18 6:00:00 CUSTOM GARMENT DESIGNER, A BX Indication: Bone/Joint Infection Notes: TIME CRITICAL MEDICATION(Same As: Vancocin)Infusion rate< 1000 mg: infuse over 1 [id number] - 1500 mg: infuse over 1.5 [id number] - 2000 mg: infuse over 2 hours> 2001 mg: infuse over 2.5 hoursFor adult patients only: Round to nearest 250 mg per Medical Staff approval MEDICATION WASTE Product Size: 1000 mgProduct Wasted: ___ mg Start Date: 08/04/18 Stop Date: 08/06/18 Status: Discontinued vancomycin 1,000 mg, Route: IVPB, Drug form: INJ, [id number], Dosing Weight 115.2, kg, Start d ate: 07/30/18 9:00:00 CUSTOM GARMENT DESIGNER, Duration: 30 day, Stop date: 08/28/18 21:00:00 CUSTOM GARMENT DESIGNER, A BX Indication: Bone/Joint Infection Notes: TIME CRITICAL MEDICATION(Same As: Vancocin)Infusion rate< 1000 mg: infuse over 1 [id number] - 1500 mg: infuse over 1.5 [id number] - 2000 mg: infuse over 2 hours> 2001 mg: infuse over 2.5 hoursFor adult patients only: Round to nearest 250 mg per Medical Staff approval MEDICATION WASTE Product Size: 1000 mgProduct Wasted: ___ mg Start Date: 07/30/18 Stop Date: 07/30/18 Status: Discontinued vancomycin + Sodium Chloride 0.9% IV 250 mL 1.25 gm, Route: IVPB, [id number], osteomyelitis, Start date: 08/01/18 20:00:00 CUSTOM GARMENT DESIGNER, Duration: 30 day, Stop date: 08/31/18 10:30:00 CDT, ABX Indication: Other (spec sanya in Comments) Notes: TIME CRITICAL MEDICATION(Same As: Vancocin)Infusion rate< 1000 mg: infuse over 1 [id number] - 1500 mg: infuse over 1.5 hoursVancomycin FOR IV SET [id number] - 2000 mg: infuse over 2 hours> 2001 mg: infuse over 2.5 hoursFor adult patients only: Round to nearest 250 mg per Medical Staff approval MEDICATION WASTE Product Size: 1000 mgProduct Wasted: ___ mg Start Date: 08/01/18 Stop Date: 08/04/18 Status: Discontinued Results ELECTROLYTES 1 2 3 Most recent to oldest [Reference Range]: 138 mEq/L (08/06/18 3:34 AM) 138 mEq/L (08/05/18 5:43 AM) 138 mEq/L (08/04/18 2:09 AM) Sodium Lvl [135-145 mEq/L] 4.5 mEq/L (08/06/18 3:34 AM) 4.4 mEq/L (08/05/18 5:43 AM) 4.6 mEq/L (08/04/18 2:09 AM) Potassium Lvl [3.5-5.1 mEq/L] 108 mEq/L (08/06/18 3:34 AM) 108 mEq/L (08/05/18 5:43 AM) 105 mEq/L (08/04/18 2:09 AM) Chloride Lvl [95-109 mEq/L] 20 mEq/L *LOW* (08/06/18 3:34 AM) 28 mEq/L (08/05/18 5:43 AM) 27 mEq/L (08/04/18 2:09 AM) CO2 [24-32 mEq/L] 14.5 mEq/L (08/06/18 3:34 AM) 6.4 mEq/L *LOW* (08/05/18 5:43 AM) 10.6 mEq/L (08/04/18 2:09 AM) AGAP [10.0-20.0 mEq/L] CHEM PANEL 1 2 3 Most recent to oldest [Reference Range]: 1.54 mg/dL *HI* (08/06/18 3:34 AM) 1.34 mg/dL (08/05/18 5:43 AM) 1.39 mg/dL (08/04/18 2:09 AM) Creatinine Lvl [0.50-1.40 mg/dL] 46 mL/min/1.73m2 1 *NA* (08/06/18 3:34 AM) 54 mL/min/1.73m2 2 *NA* (08/05/18 5:43 AM) 52 mL/min/1.73m2 3 *NA* (08/04/18 2:09 AM) eGFR 22 mg/dL (08/06/18 3:34 AM) 22 mg/dL (08/05/18 5:43 AM) 23 mg/dL *HI* (08/04/18 2:09 AM) BUN [7-22 mg/dL] 118 mg/dL *HI* (08/06/18 3:34 AM) 119 mg/dL *HI* (08/05/18 5:43 AM) 147 mg/dL *HI* (08/04/18 2:09 AM) Glucose Lvl [70-99 mg/dL] 9.9 mg/dL (08/06/18 3:34 AM) 9.5 mg/dL (08/05/18 5:43 AM) 9.6 mg/dL (08/04/18 2:09 AM) Calcium Lvl [8.5-10.5 mg/dL] 2.7 mg/dL (08/06/18 3:34 AM) 2.9 mg/dL (08/05/18 5:43 AM) 2.4 mg/dL *LOW* (08/04/18 2:09 AM) Phosphorus [2.5-4.5 mg/dL] 1.8 mg/dL (08/06/18 3:34 AM) 1.9 mg/dL (08/05/18 5:43 AM) 1.8 mg/dL (08/04/18 2:09 AM) Magnesium Lvl [1.8-2.4 mg/dL] 0.5 mMol/L (07/28/18 9:39 PM) 1.2 mMol/L (07/28/18 7:30 PM) Lactic Acid Lvl [0.5-2.2 mMol/L] 1Result Comment: The eGFR is calculated using [...] be mul tiplied by the estimated BMI. PARATHYROID PROFILE 1 2 3 Most recent to oldest [Reference Range]: 1.26 mMol/L *HI* (08/05/18 5:43 AM) 1.31 mMol/L *HI* (08/03/18 3:37 AM) 1.28 mMol/L *HI* (08/02/18 4:10 AM) Ca Ion WB [1.05-1.25 mMol/L] 1.29 mMol/L *HI* (08/05/18 5:43 AM) 1.30 mMol/L *HI* (08/03/18 3:37 AM) 1.23 mMol/L (08/02/18 4:10 AM) Ca Norm WB [1.05-1.25 mMol/L] TOXICOLOGY 1 2 3 Most recent to oldest [Reference Range]: 1700 *NA* (08/06/18 5:38 PM) 1630 *NA* (08/05/18 5:43 AM) 1000 *NA* (08/03/18 10:15 AM) [facility] TND 4.9 ug/ml *NA* (07/30/18 6:59 AM) [facility] *[facility]* (08/06/18 5:38 PM) 27.1 ug/ml *NA* (08/05/18 5:43 AM) 22.3 ug/ml *NA* (08/03/18 10:15 AM) [facility] CHEM 1 2 3 Most recent to oldest [Reference Range]: 556 mg/dL *NA* (07/29/18 8:14 AM) U Urea 79 mEq/L *NA* (07/29/18 8:14 AM) U Sodium 21.8 mEq/L *NA* (07/29/18 8:14 AM) U Potassium 86 mEq/L *NA* (07/29/18 8:14 AM) U Chloride URINE AND STOOL 1 2 3 Most recent to oldest [Reference Range]: Clear (07/29/18 8:14 AM) UA Turbidity [Clear] Yellow *NA* (07/29/18 8:14 AM) UA Color [Yellow] 5.5 (07/29/18 8:14 AM) UA pH [5.0-8.0] 1.011 (07/29/18 8:14 AM) UA Spec Grav [<=1.030] Negative mg/dL *NA* (07/29/18 8:14 AM) UA Glucose [Negative mg/dL] Negative (07/29/18 8:14 AM) UA Blood [Negative] Negative mg/dL *NA* (07/29/18 8:14 AM) UA Ketones [Negative mg/dL] 30 mg/dL *ABN* (07/29/18 8:14 AM) UA Protein [Negative mg/dL] <=1.0 mg/dL *NA* (07/29/18 8:14 AM) UA Urobilinogen [0.1-1.0 mg/dL] Negative *NA* (07/29/18 8:14 AM) UA Bili [Negative] Negative (07/29/18 8:14 AM) UA Leuk Est [Negative] Negative (07/29/18 8:14 AM) UA Nitrite [Negative] 1 /HPF (07/29/18 8:14 AM) UA RBC [0-2 /HPF] None Seen *NA* (07/29/18 8:14 AM) UA Sq Epi BODY FLUIDS 1 2 3 Most recent to oldest [Reference Range]: Negative (08/01/18 5:02 PM) Crystal BF [Negative] Other (08/01/18 5:02 PM) Crystal BF Type IMMUNOLOGY 1 2 3 Most recent to oldest [Reference Range]: 149.0 mg/L *HI* (07/28/18 9:39 PM) 171.0 mg/L *HI* (07/28/18 7:31 PM) CRP [<=2.9 mg/L] HEMATOLOGY 1 2 3 Most recent to oldest [Reference Range]: 7.4 K/CMM (08/06/18 3:34 AM) 6.4 K/CMM (08/05/18 5:43 AM) 6.3 K/CMM (08/04/18 2:09 AM) WBC [3.7-10.4 K/CMM] 3.95 M/CMM *LOW* (08/06/18 3:34 AM) 3.72 M/CMM *LOW* (08/05/18 5:43 AM) 3.80 M/CMM *LOW* (08/04/18 2:09 AM) RBC [4.70-6.10 M/CMM] 10.9 g/dL *LOW* (08/06/18 3:34 AM) 10.4 g/dL *LOW* (08/05/18 5:43 AM) 10.6 g/dL *LOW* (08/04/18 2:09 AM) Hgb [14.0-18.0 g/dL] 34.1 % *LOW* (08/06/18 3:34 AM) 31.7 % *LOW* (08/05/18 5:43 AM) 32.2 % *LOW* (08/04/18 2:09 AM) Hct [42.0-54.0 %] 86.3 fL (08/06/18 3:34 AM) 85.0 fL (08/05/18 5:43 AM) 84.6 fL (08/04/18 2:09 AM) MCV [80.0-94.0 fL] 27.7 pg (08/06/18 3:34 AM) 27.9 pg (08/05/18 5:43 AM) 27.7 pg (08/04/18 2:09 AM) MCH [27.0-31.0 pg] 32.1 g/dL (08/06/18 3:34 AM) 32.9 g/dL (08/05/18 5:43 AM) 32.8 g/dL (08/04/18 2:09 AM) MCHC [32.0-36.0 g/dL] 18.4 % *HI* (08/06/18 3:34 AM) 18.3 % *HI* (08/05/18 5:43 AM) 18.0 % *HI* (08/04/18 2:09 AM) RDW [11.5-14.5 %] 7.6 fL (08/06/18 3:34 AM) 7.4 fL (08/05/18 5:43 AM) 7.5 fL (08/04/18 2:09 AM) MPV [7.4-10.4 fL] 347 K/CMM (08/06/18 3:34 AM) 345 K/CMM (08/05/18 5:43 AM) 372 K/CMM (08/04/18 2:09 AM) Platelet [133-450 K/CMM] 71.5 % (08/06/18 3:34 AM) 68.4 % (08/05/18 5:43 AM) 75.8 % *HI* (08/04/18 2:09 AM) Segs [45.0-75.0 %] 16.0 % *LOW* (08/06/18 3:34 AM) 19.2 % *LOW* (08/05/18 5:43 AM) 12.8 % *LOW* (08/04/18 2:09 AM) Lymphocytes [20.0-40.0 %] 5.7 % (08/06/18 3:34 AM) 5.6 % (08/05/18 5:43 AM) 5.5 % (08/04/18 2:09 AM) Monocytes [2.0-12.0 %] 4.2 % *HI* (08/06/18 3:34 AM) 4.5 % *HI* (08/05/18 5:43 AM) 3.8 % (08/04/18 2:09 AM) Eosinophils [0.0-4.0 %] 2.6 % *HI* (08/06/18 3:34 AM) 2.3 % *HI* (08/05/18 5:43 AM) 2.1 % *HI* (08/04/18 2:09 AM) Basophils [0.0-1.0 %] 5.3 K/CMM (08/06/18 3:34 AM) 4.4 K/CMM (08/05/18 5:43 AM) 4.8 K/CMM (08/04/18 2:09 AM) Neutrophils # [1.5-8.1 K/CMM] 1.2 K/CMM (08/06/18 3:34 AM) 1.2 K/CMM (08/05/18 5:43 AM) 0.8 K/CMM *LOW* (08/04/18 2:09 AM) Lymphocytes # [1.0-5.5 K/CMM] 0.4 K/CMM (08/06/18 3:34 AM) 0.4 K/CMM (08/05/18 5:43 AM) 0.3 K/CMM (08/04/18 2:09 AM) Monocytes # [0.0-0.8 K/CMM] 0.3 K/CMM (08/06/18 3:34 AM) 0.3 K/CMM (08/05/18 5:43 AM) 0.2 K/CMM (08/04/18 2:09 AM) Eosinophils # [0.0-0.5 K/CMM] 0.2 K/CMM (08/06/18 3:34 AM) 0.1 K/CMM (08/05/18 5:43 AM) 0.1 K/CMM (08/04/18 2:09 AM) Basophils # [0.0-0.2 K/CMM] 98 mm/hr *HI* (07/28/18 7:31 PM) Sed Rate [0-15 mm/hr] 15.9 seconds *HI* (07/31/18 11:07 AM) 16.2 seconds *HI* (07/30/18 9:29 PM) 16.9 seconds *HI* (07/29/18 6:23 PM) PT [12.0-14.7 seconds] 1.30 *HI* (07/31/18 11:07 AM) 1.33 *HI* (07/30/18 9:29 PM) 1.40 *HI* (07/29/18 6:23 PM) INR [0.85-1.17] 55.9 seconds *HI* (08/02/18 4:10 AM) 76.4 seconds *HI* (08/01/18 2:16 AM) 77.3 seconds *HI* (07/31/18 11:07 AM) PTT [22.9-35.8 seconds] Microbiology Reports TEST: Culture: Anaerobic STATUS: Auth (Verified) BODY SITE: SOURCE: Aspirate COLLECTED DATE/TIME: 08/01/18 5:02 PM FINAL REPORT No Anaerobes Isolated After 5 Days TEST: Culture: Aspirate/Body Fluid/Tissue STATUS: Auth (Verified) BODY SITE: SOURCE: Aspirate COLLECTED DATE/TIME: 08/01/18 5:02 PM FINAL REPORT Rare Methicillin Resistant Staphylococcus aureus STAIN REPORT Gram Stain Performed By: [facility] ORGANISM:Methicillin Resistant Staphylococcus aureus Immunizations Given and Recorded Vaccine Date Status Refusal Reason influenza virus vaccine, inactivated 04/08/18 Recorded pneumococcal 13-valent vaccine 04/11/17 Given Hx influenza vaccine-unspecified1 04/26/14 Given 1Result Comment: done. Migrated from [facility] ; Data migrated from [employer] on 07/26/2015. Procedures Procedure Date Related Diagnosis Body Site Status Arthrocentesis, aspiration and/or injection, 08/01/18 Completed major joint or bursa (eg, shoulder, hip, knee, subacromial bursa); without ultrasound guidance Colonoscopy 2013 Completed Nephrectomy 11/22/02 Completed Social History Social History Type Response Substance Abuse Use: None. Alcohol Never Smoking Status Former smoker; Type: Cigars; Exposure to Tobacco Smoke None; Cigarette Smoking Last 365 Days No; Reg Smoking Cessation Counseling No entered on: 07/28/18 Assessment and Plan Extracted from: Title: Team D Progress Note Author: Trish Lizama [...] bedside I&D 07/31, failed. Went with IR muscul oskeletal for drainage on 08/01/18 with culture which grew MRSA. Per ID recx, patient need home IV vancomycin for 6 weeks. Patient's insurance is unable to cover home IV abx. 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 After discussion with , patient is topay [...] IR on 08/01/18 - records requested from [facility] to obtain more information about patient's prior hospital stays - pharmacy consult for dosing ofvancomycin -Patient's insurance is unable to cover home IV abx. 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 -I had a discussion with patient concerning [...] Trell Lizama MD [facility] Internal Medicine PGY1 [id number]. Pager: [phone]. MSO# [id number] Addendum by Trell, Attending Attestation: Lore Agosto MD on I personally interviewed and examined this patient with the resident team. I agree with 08/06/2018 the aforementioned history, exam, data findings, and assessment/plan with the following 17:19 CUSTOM GARMENT DESIGNER additions: Brief hospital course: 67 yo w pmh dm, ckd, rcc s/p r nephrectomy, htn, diastolic hf and b/l cellulitis afterprior varicose vein sx 03/2017 p/w RLE edema and painful. MRI foot notable for septic arthritis and foot abscess in the setting of chronic osteomyelitis. s/p I&D 08/01. cx growing mrsa. labs & imaging reviewed Assessment/plan: R foot charcot arthropathy -- f/u Dr. Vieira (Orthopedic surgery) as OP. Septic arthritis R Foot abscess R foot chronic osteomyelitis. GRACY RLE DVT HTN DM2 Atrial fibrillation anemia of chronic disease BPH cont vancomycin. appreciate ID recs.contapixaban. renally dose meds.cont nifedipine, lisinopril and coreg. home health pending. PICC line to be placed today. Extracted from: Title: History and Physical Author: Kat Urias MD [...] Weight 118.182, kg, Start date: 07/29/18 9:00:00 CUSTOM GARMENT DESIGNER, Duration: 30 day, Stop date: 08/27/18 9:00:00 CUSTOM GARMENT DESIGNER Chronic pain syndrome(G89.4) Ordered: Lyrica, 25 mg, 1 cap, Route: PO, Drug form: CAP, Daily, Dosing Weight 118.182, kg, Start date: 07/29/18 9:00:00 CUSTOM GARMENT DESIGNER, Duration: 30 day, Stop date: 08/27/18 9:00:00 CUSTOM GARMENT DESIGNER tramadol 50 mg oral tablet, 50 mg, 1 tab, Route: PO, Drug form: TAB, BID, Dosing Weight 118.182, kg, PRN Pain Score 1-5, Start date: 07/28/18 21:47:00 CUSTOM GARMENT DESIGNER, Duration: 30 day, Stop date: 08/27/18 21:46:00 CUSTOM GARMENT DESIGNER CKD (chronic kidney disease) stage 3, GFR [...] TEACHING ATTENDING ATTESTATION STATEMENT: I have seen & examined this patient & discussed the findings on this patient in detail with the team on teaching rounds. I have reviewed the note above and I agree with the findings and plan of care outlined Concern for osteomyelitis or skin soft tissue infectionholding on antibiotics given the patient not septic we will continue to follow work up
--- OUTSIDE RECORDS SUMMARY | 2019-02-22 08:13 | XMS REPORT | Summary of Care ---
Author Author [facility] Organization [facility] Address Unknown Phone Unavailable Encounter RAFIA Valiente(FIN) [id number] Date(s): 08/06/18 - 08/07/18 [facility] [address], [address] [place] [address] [phone] Vital Signs No data available for this [...] Originally documented as HYDRALAZINE HCL. dyspnea Medications metolazone 5 mg oral tablet =1 tab, PO, Daily, # 90 ea, Pharmacy: [facility] Start Date: 08/06/18 Stop Date: 08/06/18 Status: Discontinued Results No data available for this section Immunizations Given and Recorded Vaccine Date Status Refusal Reason influenza virus vaccine, inactivated 04/08/18 Recorded pneumococcal 13-valent vaccine 04/11/17 Given Hx influenza vaccine-unspecified1 04/26/14 Given 1Result Comment: done. Migrated from [facility] ; Data migrated from [email or web address] on 07/26/2015. Procedures Procedure Date Related Diagnosis [...]
--- OUTSIDE RECORDS SUMMARY | 2019-02-22 08:14 | XMS REPORT | Summary of Care ---
Author Author Emily Gaytan Unknown Address Unknown Phone Unavailable Care Team Providers Care Staff Forester Name Role Phone IZA NICHOLSON, LAILA Lopez Unavailable Unavailable Chidi NICHOLSON, Kirill Unavailable Unavailable AUGIE NICHOLSON, MAX VAUGHN Unavailable Unavailable MONI MAGDALENO Unavailable Unavailable GENARO NICHOLSON, HOMERO Unavailable Unavailable Mina NICHOLSON, Rajni Unavailable Unavailable Unavailable Unavailable Functional Status Name Dates Details Functional status health issues are not documented Status: Name Dates Details Cognitive status health issues are not documented Status: Problems Name Dates Details Lymphedema (457.1, I89.0) Status: Active Leg swelling (729.81, M79.89) Status: Active 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 Active Amiodarone HCl - 200 MG Oral Tablet * Refills: 0 R.N. Active amLODIPine Besylate 5 MG Oral Tablet * Refills: 0 R.N. Active Aspirin 325 MG Oral Tablet * Refills: 0 R.N. Active cloNIDine HCl - 0.1 MG Oral Tablet * Refills: 0 R.N. Active Coreg 25 MG Oral Tablet * Refills: 0 R.N. Active Cyanocobalamin SUBL * Refills: 0 R.N. Active Doxazosin Mesylate 2 MG Oral Tablet * Refills: 0 R.N. Active HYDROcodone-Acetaminophen 7.5-325 MG Oral Tablet * Refills: 0 R.N. Active DULoxetine HCl - 60 MG Oral Capsule Delayed Release Particles * Refills: 0 R.N. Active Eliquis 5 MG Oral Tablet * Refills: 0 R.N. Active metOLazone 5 MG Oral Tablet * Refills: 0 R.N. Active Metoprolol Tartrate 50 MG Oral Tablet * Refills: 0 R.N. Active Potassium Chloride 20 MEQ Oral Packet * Refills: 0 R.N. Active Tamsulosin HCl - 0.4 MG Oral Capsule * Refills: 0 R.N. Active Torsemide 20 MG Oral Tablet * Refills: 0 R.N. Active Toujeo SoloStar 300 UNIT/ML Subcutaneous Solution Pen-injector * Refills: 0 R.N. Active traMADol HCl - 50 MG Oral Tablet * Refills: 0 R.N. Active Zofran 4 MG Oral Tablet * Refills: 0 R.N. Active Raymond 10-325 MG Oral Tablet * Refills: 0 R.N. Active Basaglar KwikPen 100 UNIT/ML Subcutaneous Solution Pen-injector * Refills: 0 R.N. Active NIFEdipine ER 90 MG Oral Tablet Extended Release 24 Hour * Refills: 0 R.N. Active Gabapentin 100 MG Oral Capsule * Refills: 0 R.N. Active Allopurinol 300 MG Oral Tablet * Refills: 0 R.N. Active Aspirin 81 MG Oral Tablet Delayed Release * Refills: 0 R.N. Active Enoxaparin Sodium 40 MG/0.4ML Subcutaneous Solution * Refills: 0 R.N. Active Admelog 100 UNIT/ML Subcutaneous Solution * Refills: 0 R.N. Active Protonix 40 MG Oral Tablet Delayed Release * Refills: 0 R.N. Active Atorvastatin Calcium 20 MG Oral Tablet * Refills: 0 R.N. Active Allergies and Adverse Reactions Name Dates Details clindamycin (Allergy) Status: Active hydrALAZINE (Allergy) Status: Active Past Medical History Name Dates Details History of atrial fibrillation (V12.59, Z86.79) Status: Resolved History of Chronic diastolic heart failure (428.32, I50.32) Status: Resolved History of diabetes mellitus (V12.29, Z86.39) Status: Resolved History of encephalopathy (V12.49, Z86.69) Status: Resolved History of essential hypertension (V12.59, Z86.79) Status: Resolved History of gout (V12.29, Z87.39) Status: Resolved History of osteomyelitis (V13.59, Z87.39) Status: Resolved History of renal carcinoma (V10.52, Z85.528) Status: Resolved Procedures Procedure Dates Details History of Nephrectomy Completed Immunization Name Dates Details Immunizations not documented Family History Name Dates Details Family history of hypertension (V17.49, Z82.49) Status: Active Family history of kidney disease (V18.69, Z84.1) Status: Active Family history of throat cancer (V16.0, Z80.0) Status: Active Name Dates Details Family history of gout (V18.19, Z82.69) Status: Active Family history of diabetes mellitus (V18.0, Z83.3) Status: Active Social History Name Dates Details - Status: Name Dates Details Former smoker Vital Signs Date Test Result Details [id number]-[id number] BP Systolic 111 mm[Hg] Status: Comments: Location: RUE; Position: Sitting BP Diastolic 64 mm[Hg] Status: Comments: Location: RUE; Position: Sitting Height 75 in Status: Temperature 97.1 f Status: Comments: Method: Oral Heart Rate 70 /min Status: O2 SAT 98 % Status: Results Date Description Value Details Results not documented Plan of Care Name Dates Details Planned Observations Planned Goals not documented Planned Encounters Appointment; MAX GHOSH M.D. On: 19-Feb-2019 9:30 Appointment; RAJNI PISANO M.D. On: 09-Mar-2019 15:00 Instructions Name Dates Details Instructions not documented Encounters Appointment; SAIGE PALMER M.D. Encounter Diagnosis: Problem not documented On: 15-Jul-2017 13:30 Appointment; SAIGE PALMER M.D. Encounter Diagnosis: Problem not documented On: 29-Jul-2017 10:45 Appointment; VASCULAR, IDALMIS Encounter Diagnosis: Problem not documented On: 07-Aug-2017 10:00 Appointment; SIAGE PALMER M.D. Encounter Diagnosis: Problem not documented On: 26-Aug-2017 9:30 Appointment; KIRILL DANIELS M.D. Encounter Diagnosis: Problem not documented On: 16-Sep-2018 9:40 Appointment; MONI HUANG, PEllie Encounter Diagnosis: Problem not documented On: 20-Nov-2018 10:30 Appointment; HOMERO LAM M.D. Encounter Diagnosis: Problem not documented On: 24-Nov-2018 9:30 Appointment; MONI HUANG P.A. Encounter Diagnosis: Problem not documented On: 27-Nov-2018 13:15 Appointment; MAX GHOSH M.D. Encounter Diagnosis: Problem not documented On: 11-Dec-2018 9:45 Appointment; KATIA VARGHESE P.A. Encounter Diagnosis: Problem not documented On: 08-Jan-2019 9:30 Appointment; HOMERO LAM M.D. Encounter Diagnosis: Problem not documented On: 19-Jan-2019 9:00 Appointment; RAJNI PISANO M.D. Encounter Diagnosis: Problem not documented On: 09-Feb-2019 14:00
--- OUTSIDE RECORDS SUMMARY | 2019-02-22 08:14 | XMS REPORT ---
[facility] Address Unknown Phone Unavailable Care Team Providers Care Engineering Leader Name Role Phone Unavailable Unavailable Payers Payer Name Policy Type Policy Number Effective Date Expiration Date Problems This patient has no known problems. Allergies, Adverse Reactions, Alerts Allergy Name Allergy Type Status Severity Reaction(s) Onset Date Inactive Date Treating Clinician Comments clindamycin DA Active SV 2018-10-06 00:00:00 hydralazine DA Active CA 2018-10-06 00:00:00 hydralazine DA Active CA 2018-10-03 00:00:00 clindamycin DA Active SV 2018-10-02 00:00:00 HYDROLAZINE DA Active SV 2018-10-02 00:00:00 No Known Allergies DA Active U 2016-12-06 00:00:00 Medications This patient has no known medications. Encounters Start Date/Time End Date/Time Encounter Type Admission Type Attending [facility] Care Facility Care Department Encounter ID 2018-10-30 01:34:00 Inpatient U [facility] MED [id number] 2019-01-26 12:00:00 2019-01-26 05:19:00 Inpatient U [facility] [id number] Results Test Description Test Time Test Comments Text Results Atomic Results Result Comments GLUBED 2018-10-28 12:51:00 GLUBED (test code=GLUBED) 112 mg/dL 74-106 [facility] [id number] 12:51:00* Test Item Value Reference Range Comments GLUBED (test code=GLUBED) 219 mg/dL 74-106 [facility] [id number] 12:51:00* Test Item Value Reference Range Comments GLUBED (test code=GLUBED) 161 mg/dL 74-106 Performed by certified cooky machine operator at [facility] [id number] 12:32:00* Test Item Value Reference Range Comments GLUBED (test code=GLUBED) 120 mg/dL 74-106 Performed by certified cooky machine operator at [facility] [id number] 12:32:00* Test Item Value Reference Range Comments GLUBED (test code=GLUBED) 177 mg/dL 74-106 Performed by certified cooky machine operator at [facility] [id number] 12:32:00* Test Item Value Reference Range Comments GLUBED (test code=GLUBED) 145 mg/dL 74-106 Performed by certified cooky machine operator at [facility] [id number] 12:32:00* Test Item Value Reference Range Comments GLUBED (test code=GLUBED) 132 mg/dL 74-106 Performed by certified cooky machine operator at [facility] [id number] 12:31:00* Test Item Value Reference Range Comments GLUBED (test code=GLUBED) 108 mg/dL 74-106 Performed by certified cooky machine operator at [facility] [id number] 12:31:00* Test Item Value Reference Range Comments GLUBED (test code=GLUBED) 143 mg/dL 74-106 [facility] [id number] 12:31:00* Test Item Value Reference Range Comments GLUBED (test code=GLUBED) 122 mg/dL 74-106 Performed by certified cooky machine operator at [facility] [id number] 12:31:00* Test Item Value Reference Range Comments GLUBED (test code=GLUBED) 222 mg/dL 74-106 Performed by certified cooky machine operator at [facility] [id number] 12:30:00* Test Item Value Reference Range Comments GLUBED (test code=GLUBED) 136 mg/dL 74-106 [facility] [id number] 11:10:00* Test Item Value Reference Range Comments GLUBED (test code=GLUBED) 158 mg/dL 74-106 Performed by certified cooky machine operator at [facility] [id number] 06:58:00* Test Item Value Reference Range Comments GLUBED (test code=GLUBED) 129 mg/dL 74-106 Performed by certified cooky machine operator at [facility] [id number] 23:47:00* Test Item Value Reference Range Comments GLUBED (test code=GLUBED) 112 mg/dL 74-106 Performed by certified cooky machine operator at [facility] [id number] 19:17:00* Test Item Value Reference Range Comments GLUBED (test code=GLUBED) 154 mg/dL 74-106 Performed by certified cooky machine operator at [facility] [id number] 13:23:00* Test Item Value Reference Range Comments GLUBED (test code=GLUBED) 167 mg/dL 74-106 Performed by certified cooky machine operator at [facility] [id number] 06:22:00* Test Item Value Reference Range Comments GLUBED (test code=GLUBED) 121 mg/dL 74-106 Performed by certified cooky machine operator at [facility] COMPREHENSIVE METABOLIC [id number] 06:18:00* Test Item Value Reference Range Comments SODIUM (test code=NA) 139 mmol/L 136-145 POTASSIUM (test code=K) 4.4 mmol/L 3.5-5.1 CHLORIDE (test code=CL) 106.0 mmol/L 98-107 CARBON DIOXIDE (test code=CO2) 29.0 mmol/L 21-32 ANION GAP (test code=GAP) 8.4 10-20 GLUCOSE (test code=GLU) 120 mg/dL 74-106 BLOOD UREA NITROGEN (test code=BUN) 16 mg/dL 7-18 GLOMERULAR FILTRATION RATE (test code=GFR) 55 mL/min >=60 Estimated GFR by using Modified MDRD formula.Chronic kidney disease is defined as either kidney damageor GFR <60 mL/min/1.73 m2 for >3 months. CREATININE (test code=CREAT) 1.30 mg/dL 0.7-1.3 BUN/CREATININE RATIO (test code=BUN/CREA) 12.3 10-20 TOTAL PROTEIN (test code=PROT) 6.5 gram/dL 6.4-8.2 ALBUMIN (test code=ALB) 2.5 g/dL 3.4-5.0 GLOBULIN (test code=GLOB) 4.0 gram/dL 2.7-4.2 ALBUMIN/GLOBULIN RATIO (test code=A/G) 0.6 0.75-1.50 CALCIUM (test code=CA) 9.8 mg/dL 8.5-10.1 BILIRUBIN TOTAL (test code=BILT) 0.30 mg/dL 0.0-1.0 SGOT/AST (test code=AST) 14 IUnit/L 15-37 SGPT/ALT (test code=ALT) 27 IUnit/L 12-78 ALKALINE PHOSPHATASE TOTAL (test code=ALKP) 156 IUnit/L 45-117 Note change in reference range due to change in reagent. COMPREHENSIVE METABOLIC [id number] 06:07:00* Test Item Value Reference Range Comments SODIUM (test code=NA) 139 mmol/L 136-145 POTASSIUM (test code=K) 4.4 mmol/L 3.5-5.1 CHLORIDE (test code=CL) 106.0 mmol/L 98-107 CARBON DIOXIDE (test code=CO2) mmol/L 21-32 ANION GAP (test code=GAP) 10-20 GLUCOSE (test code=GLU) mg/dL 74-106 BLOOD UREA NITROGEN (test code=BUN) mg/dL 7-18 GLOMERULAR FILTRATION RATE (test code=GFR) mL/min >=60 CREATININE (test code=CREAT) mg/dL 0.7-1.3 BUN/CREATININE RATIO (test code=BUN/CREA) 10-20 TOTAL PROTEIN (test code=PROT) gram/dL 6.4-8.2 ALBUMIN (test code=ALB) g/dL 3.4-5.0 GLOBULIN (test code=GLOB) gram/dL 2.7-4.2 ALBUMIN/GLOBULIN RATIO (test code=A/G) 0.75-1.50 CALCIUM (test code=CA) mg/dL 8.5-10.1 BILIRUBIN TOTAL (test code=BILT) mg/dL 0.0-1.0 SGOT/AST (test code=AST) IUnit/L 15-37 SGPT/ALT (test code=ALT) IUnit/L 12-78 ALKALINE PHOSPHATASE TOTAL (test code=ALKP) IUnit/L 45-117 CBC W/AUTO [id number] 05:52:00* Test Item Value Reference Range Comments WHITE BLOOD CELL (test code=WBC) 7.4 K/mm3 4.5-12.5 RED BLOOD CELL (test code=RBC) 3.49 mill/mm3 4.0-5.8 HEMOGLOBIN (test code=HGB) 9.3 gram/dL 13.0-17.5 HEMATOCRIT (test code=HCT) 30.8 % 42.0-52.0 MEAN CELL VOLUME (test code=MCV) 88.3 fL 80-98 MEAN CELL HGB (test code=MCH) 26.6 picogram 27.0-33.0 MEAN CELL HGB CONCETRATION (test code=MCHC) 30.2 gram/dL 33.0-36.0 RED CELL DISTRIBUTION WIDTH (test code=RDW) 17.4 % 11.6-16.2 RED CELL DISTRIBUTION WIDTH SD (test code=RDW-SD) 55.5 fL 37.0-51.0 PLATELET COUNT (test code=PLT) 350 K/mm3 150-450 MEAN PLATELET VOLUME (test code=MPV) 9.8 fL 6.7-11.0 NEUTROPHIL % (test code=NT%) 71.5 % 39.0-69.0 IMMATURE GRANULOCYTE % (test code=IG%) 0.5 % 0.0-5.0 LYMPHOCYTE % (test code=LY%) 15.1 % 25.0-55.0 MONOCYTE % (test code=MO%) 5.6 % 0.0-10.0 EOSINOPHIL % (test code=EO%) 6.3 % 0.0-5.0 BASOPHIL % (test code=BA%) 1.0 % 0.0-1.0 NUCLEATED RBC % (test code=NRBC%) 0.0 % 0-0 NEUTROPHIL # (test code=NT#) 5.27 K/mm3 1.8-7.7 IMMATURE GRANULOCYTE # (test code=IG#) 0.04 x10 3/uL 0-0.03 LYMPHOCYTE # (test code=LY#) 1.11 K/mm3 1.0-5.0 MONOCYTE # (test code=MO#) 0.41 K/mm3 0-0.8 EOSINOPHIL # (test code=EO#) 0.46 K/mm3 0.0-0.5 BASOPHIL # (test code=BA#) 0.07 K/mm3 0.0-0.2 NUCLEATED RBC # (test code=NRBC#) 0.00 K/mm3 0.0-0.1 [id number] 21:00:00* Test Item Value Reference Range Comments GLUBED (test code=GLUBED) 135 mg/dL 74-106 Performed by certified cooky machine operator at [facility] [id number] 16:43:00* Test Item Value Reference Range Comments GLUBED (test code=GLUBED) 116 mg/dL 74-106 Performed by certified cooky machine operator at [facility] [id number] 12:14:00* Test Item Value Reference Range Comments GLUBED (test code=GLUBED) 177 mg/dL 74-106 Performed by certified cooky machine operator at [facility] [id number] 06:30:00* Test Item Value Reference Range Comments GLUBED (test code=GLUBED) 146 mg/dL 74-106 Performed by certified cooky machine operator at [facility] COMPREHENSIVE METABOLIC [id number] 05:55:00* Test Item Value Reference Range Comments SODIUM (test code=NA) 139 mmol/L 136-145 POTASSIUM (test code=K) 4.2 mmol/L 3.5-5.1 CHLORIDE (test code=CL) 106.0 mmol/L 98-107 CARBON DIOXIDE (test code=CO2) 28.0 mmol/L 21-32 ANION GAP (test code=GAP) 9.2 10-20 GLUCOSE (test code=GLU) 144 mg/dL 74-106 BLOOD UREA NITROGEN (test code=BUN) 20 mg/dL 7-18 GLOMERULAR FILTRATION RATE (test code=GFR) 55 mL/min >=60 Estimated GFR by using Modified MDRD formula.Chronic kidney disease is defined as either kidney damageor GFR <60 mL/min/1.73 m2 for >3 months. CREATININE (test code=CREAT) 1.30 mg/dL 0.7-1.3 BUN/CREATININE RATIO (test code=BUN/CREA) 15.4 10-20 TOTAL PROTEIN (test code=PROT) 5.9 gram/dL 6.4-8.2 ALBUMIN (test code=ALB) 2.2 g/dL 3.4-5.0 GLOBULIN (test code=GLOB) 3.7 gram/dL 2.7-4.2 ALBUMIN/GLOBULIN RATIO (test code=A/G) 0.6 0.75-1.50 CALCIUM (test code=CA) 9.7 mg/dL 8.5-10.1 BILIRUBIN TOTAL (test code=BILT) 0.30 mg/dL 0.0-1.0 SGOT/AST (test code=AST) 15 IUnit/L 15-37 SGPT/ALT (test code=ALT) 30 IUnit/L 12-78 ALKALINE PHOSPHATASE TOTAL (test code=ALKP) 131 IUnit/L 45-117 Note change in reference range due to change in reagent. COMPREHENSIVE METABOLIC [id number] 05:22:00* Test Item Value Reference Range Comments SODIUM (test code=NA) 139 mmol/L 136-145 POTASSIUM (test code=K) 4.2 mmol/L 3.5-5.1 CHLORIDE (test code=CL) 106.0 mmol/L 98-107 CARBON DIOXIDE (test code=CO2) mmol/L 21-32 ANION GAP (test code=GAP) 10-20 GLUCOSE (test code=GLU) mg/dL 74-106 BLOOD UREA NITROGEN (test code=BUN) mg/dL 7-18 GLOMERULAR FILTRATION RATE (test code=GFR) mL/min >=60 CREATININE (test code=CREAT) mg/dL 0.7-1.3 BUN/CREATININE RATIO (test code=BUN/CREA) 10-20 TOTAL PROTEIN (test code=PROT) gram/dL 6.4-8.2 ALBUMIN (test code=ALB) g/dL 3.4-5.0 GLOBULIN (test code=GLOB) gram/dL 2.7-4.2 ALBUMIN/GLOBULIN RATIO (test code=A/G) 0.75-1.50 CALCIUM (test code=CA) mg/dL 8.5-10.1 BILIRUBIN TOTAL (test code=BILT) mg/dL 0.0-1.0 SGOT/AST (test code=AST) IUnit/L 15-37 SGPT/ALT (test code=ALT) IUnit/L 12-78 ALKALINE PHOSPHATASE TOTAL (test code=ALKP) IUnit/L 45-117 CBC W/AUTO [id number] 05:08:00* Test Item Value Reference Range Comments WHITE BLOOD CELL (test code=WBC) 7.8 K/mm3 4.5-12.5 RED BLOOD CELL (test code=RBC) 3.22 mill/mm3 4.0-5.8 HEMOGLOBIN (test code=HGB) 8.6 gram/dL 13.0-17.5 HEMATOCRIT (test code=HCT) 28.4 % 42.0-52.0 MEAN CELL VOLUME (test code=MCV) 88.2 fL 80-98 MEAN CELL HGB (test code=MCH) 26.7 picogram 27.0-33.0 MEAN CELL HGB CONCETRATION (test code=MCHC) 30.3 gram/dL 33.0-36.0 RED CELL DISTRIBUTION WIDTH (test code=RDW) 17.1 % 11.6-16.2 RED CELL DISTRIBUTION WIDTH SD (test code=RDW-SD) 54.7 fL 37.0-51.0 PLATELET COUNT (test code=PLT) 313 K/mm3 150-450 MEAN PLATELET VOLUME (test code=MPV) 10.0 fL 6.7-11.0 NEUTROPHIL % (test code=NT%) 75.0 % 39.0-69.0 IMMATURE GRANULOCYTE % (test code=IG%) 0.6 % 0.0-5.0 LYMPHOCYTE % (test code=LY%) 12.5 % 25.0-55.0 MONOCYTE % (test code=MO%) 6.0 % 0.0-10.0 EOSINOPHIL % (test code=EO%) 5.0 % 0.0-5.0 BASOPHIL % (test code=BA%) 0.9 % 0.0-1.0 NUCLEATED RBC % (test code=NRBC%) 0.3 % 0-0 NEUTROPHIL # (test code=NT#) 5.88 K/mm3 1.8-7.7 IMMATURE GRANULOCYTE # (test code=IG#) 0.05 x10 3/uL 0-0.03 LYMPHOCYTE # (test code=LY#) 0.98 K/mm3 1.0-5.0 MONOCYTE # (test code=MO#) 0.47 K/mm3 0-0.8 EOSINOPHIL # (test code=EO#) 0.39 K/mm3 0.0-0.5 BASOPHIL # (test code=BA#) 0.07 K/mm3 0.0-0.2 NUCLEATED RBC # (test code=NRBC#) 0.02 K/mm3 0.0-0.1 MANUAL DIFF REQUIRED (test code=MDIFF) NO [id number] 20:58:00* Test Item Value Reference Range Comments GLUBED (test code=GLUBED) 165 mg/dL 74-106 Performed by certified cooky machine operator at [facility] [id number] 17:24:00* Test Item Value Reference Range Comments GLUBED (test code=GLUBED) 214 mg/dL 74-106 Performed by certified cooky machine operator at [facility] [id number] 12:36:00* Test Item Value Reference Range Comments GLUBED (test code=GLUBED) 151 mg/dL 74-106 Performed by certified cooky machine operator at [facility] CBC W/AUTO [id number] 06:19:00* Test Item Value Reference Range Comments WHITE BLOOD CELL (test code=WBC) 6.5 K/mm3 4.5-12.5 RED BLOOD CELL (test code=RBC) 2.81 mill/mm3 4.0-5.8 HEMOGLOBIN (test code=HGB) 7.2 gram/dL 13.0-17.5 HEMATOCRIT (test code=HCT) 25.0 % 42.0-52.0 MEAN CELL VOLUME (test code=MCV) 89.0 fL 80-98 MEAN CELL HGB (test code=MCH) 25.6 picogram 27.0-33.0 MEAN CELL HGB CONCETRATION (test code=MCHC) 28.8 gram/dL 33.0-36.0 RED CELL DISTRIBUTION WIDTH (test code=RDW) 17.5 % 11.6-16.2 RED CELL DISTRIBUTION WIDTH SD (test code=RDW-SD) 56.4 fL 37.0-51.0 PLATELET COUNT (test code=PLT) 310 K/mm3 150-450 MEAN PLATELET VOLUME (test code=MPV) 9.4 fL 6.7-11.0 NEUTROPHIL % (test code=NT%) 69.4 % 39.0-69.0 IMMATURE GRANULOCYTE % (test code=IG%) 0.6 % 0.0-5.0 LYMPHOCYTE % (test code=LY%) 17.9 % 25.0-55.0 MONOCYTE % (test code=MO%) 5.7 % 0.0-10.0 EOSINOPHIL % (test code=EO%) 5.2 % 0.0-5.0 BASOPHIL % (test code=BA%) 1.2 % 0.0-1.0 NUCLEATED RBC % (test code=NRBC%) 0.5 % 0-0 NEUTROPHIL # (test code=NT#) 4.53 K/mm3 1.8-7.7 IMMATURE GRANULOCYTE # (test code=IG#) 0.04 x10 3/uL 0-0.03 LYMPHOCYTE # (test code=LY#) 1.17 K/mm3 1.0-5.0 MONOCYTE # (test code=MO#) 0.37 K/mm3 0-0.8 EOSINOPHIL # (test code=EO#) 0.34 K/mm3 0.0-0.5 BASOPHIL # (test code=BA#) 0.08 K/mm3 0.0-0.2 NUCLEATED RBC # (test code=NRBC#) 0.03 K/mm3 0.0-0.1 MANUAL DIFF REQUIRED (test code=MDIFF) NO, ONLY SCAN NEEDED DIFFERENTIAL [id number] 06:19:00* Test Item Value Reference Range Comments STAIN ACCEPTABILITY (test code=STN ACCEPTABLE) STAIN ACCEPTABLE POLYCHROMASIA (test code=POLC) 1+ HYPOCHROMIA (test code=HYPO) 1+ POIKILOCYTOSIS (test code=POIK) 1+ ANISOCYTOSIS (test code=ANISO) 1+ MICROCYTOSIS (test code=MICR) 1+ TEAR DROP CELLS (test code=TEAR) 1+ ELLIPTOCYTES (test code=ELL) 1+ PLATELET ESTIMATE (test code=PLTEST) ADEQUATE PLATELET MORPHOLOGY (test code=PLTMORPH) SIZE VARIABLE COMPREHENSIVE METABOLIC [id number] 05:33:00* Test Item Value Reference Range Comments SODIUM (test code=NA) 140 mmol/L 136-145 POTASSIUM (test code=K) 4.3 mmol/L 3.5-5.1 CHLORIDE (test code=CL) 108.0 mmol/L 98-107 CARBON DIOXIDE (test code=CO2) 26.0 mmol/L 21-32 ANION GAP (test code=GAP) 10.3 10-20 GLUCOSE (test code=GLU) 125 mg/dL 74-106 BLOOD UREA NITROGEN (test code=BUN) 22 mg/dL 7-18 GLOMERULAR FILTRATION RATE (test code=GFR) 55 mL/min >=60 Estimated GFR by using Modified MDRD formula.Chronic kidney disease is defined as either kidney damageor GFR <60 mL/min/1.73 m2 for >3 months. CREATININE (test code=CREAT) 1.30 mg/dL 0.7-1.3 BUN/CREATININE RATIO (test code=BUN/CREA) 16.9 10-20 TOTAL PROTEIN (test code=PROT) 5.8 gram/dL 6.4-8.2 ALBUMIN (test code=ALB) 2.2 g/dL 3.4-5.0 GLOBULIN (test code=GLOB) 3.6 gram/dL 2.7-4.2 ALBUMIN/GLOBULIN RATIO (test code=A/G) 0.6 0.75-1.50 CALCIUM (test code=CA) 9.3 mg/dL 8.5-10.1 BILIRUBIN TOTAL (test code=BILT) 0.20 mg/dL 0.0-1.0 SGOT/AST (test code=AST) 17 IUnit/L 15-37 SGPT/ALT (test code=ALT) 29 IUnit/L 12-78 ALKALINE PHOSPHATASE TOTAL (test code=ALKP) 116 IUnit/L 45-117 Note change in reference range due to change in reagent. CBC W/AUTO [id number] 05:05:00* Test Item Value Reference Range Comments WHITE BLOOD CELL (test code=WBC) 6.5 K/mm3 4.5-12.5 RED BLOOD CELL (test code=RBC) 2.81 mill/mm3 4.0-5.8 HEMOGLOBIN (test code=HGB) 7.2 gram/dL 13.0-17.5 HEMATOCRIT (test code=HCT) 25.0 % 42.0-52.0 MEAN CELL VOLUME (test code=MCV) 89.0 fL 80-98 MEAN CELL HGB (test code=MCH) 25.6 picogram 27.0-33.0 MEAN CELL HGB CONCETRATION (test code=MCHC) 28.8 gram/dL 33.0-36.0 RED CELL DISTRIBUTION WIDTH (test code=RDW) 17.5 % 11.6-16.2 RED CELL DISTRIBUTION WIDTH SD (test code=RDW-SD) 56.4 fL 37.0-51.0 PLATELET COUNT (test code=PLT) 310 K/mm3 150-450 MEAN PLATELET VOLUME (test code=MPV) 9.4 fL 6.7-11.0 NEUTROPHIL % (test code=NT%) 69.4 % 39.0-69.0 IMMATURE GRANULOCYTE % (test code=IG%) 0.6 % 0.0-5.0 LYMPHOCYTE % (test code=LY%) 17.9 % 25.0-55.0 MONOCYTE % (test code=MO%) 5.7 % 0.0-10.0 EOSINOPHIL % (test code=EO%) 5.2 % 0.0-5.0 BASOPHIL % (test code=BA%) 1.2 % 0.0-1.0 NUCLEATED RBC % (test code=NRBC%) 0.5 % 0-0 NEUTROPHIL # (test code=NT#) 4.53 K/mm3 1.8-7.7 IMMATURE GRANULOCYTE # (test code=IG#) 0.04 x10 3/uL 0-0.03 LYMPHOCYTE # (test code=LY#) 1.17 K/mm3 1.0-5.0 MONOCYTE # (test code=MO#) 0.37 K/mm3 0-0.8 EOSINOPHIL # (test code=EO#) 0.34 K/mm3 0.0-0.5 BASOPHIL # (test code=BA#) 0.08 K/mm3 0.0-0.2 NUCLEATED RBC # (test code=NRBC#) 0.03 K/mm3 0.0-0.1 MANUAL DIFF REQUIRED (test code=MDIFF) NO, ONLY SCAN NEEDED DIFFERENTIAL [id number] 05:05:00* Test Item Value Reference Range Comments STAIN ACCEPTABILITY (test code=STN ACCEPTABLE) CABOT RINGS (test code=CAB) MORPHOLOGY COMMENT (test code=MOC) PLATELET ESTIMATE (test code=PLTEST) PLATELET MORPHOLOGY (test code=PLTMORPH) CBC W/AUTO [id number] 05:05:00* Test Item Value Reference Range Comments WHITE BLOOD CELL (test code=WBC) 6.5 K/mm3 4.5-12.5 RED BLOOD CELL (test code=RBC) 2.81 mill/mm3 4.0-5.8 HEMOGLOBIN (test code=HGB) 7.2 gram/dL 13.0-17.5 HEMATOCRIT (test code=HCT) 25.0 % 42.0-52.0 MEAN CELL VOLUME (test code=MCV) 89.0 fL 80-98 MEAN CELL HGB (test code=MCH) 25.6 picogram 27.0-33.0 MEAN CELL HGB CONCETRATION (test code=MCHC) 28.8 gram/dL 33.0-36.0 RED CELL DISTRIBUTION WIDTH (test code=RDW) 17.5 % 11.6-16.2 RED CELL DISTRIBUTION WIDTH SD (test code=RDW-SD) 56.4 fL 37.0-51.0 PLATELET COUNT (test code=PLT) 310 K/mm3 150-450 MEAN PLATELET VOLUME (test code=MPV) 9.4 fL 6.7-11.0 NEUTROPHIL % (test code=NT%) 69.4 % 39.0-69.0 IMMATURE GRANULOCYTE % (test code=IG%) 0.6 % 0.0-5.0 LYMPHOCYTE % (test code=LY%) 17.9 % 25.0-55.0 MONOCYTE % (test code=MO%) 5.7 % 0.0-10.0 EOSINOPHIL % (test code=EO%) 5.2 % 0.0-5.0 BASOPHIL % (test code=BA%) 1.2 % 0.0-1.0 NUCLEATED RBC % (test code=NRBC%) 0.5 % 0-0 NEUTROPHIL # (test code=NT#) 4.53 K/mm3 1.8-7.7 IMMATURE GRANULOCYTE # (test code=IG#) 0.04 x10 3/uL 0-0.03 LYMPHOCYTE # (test code=LY#) 1.17 K/mm3 1.0-5.0 MONOCYTE # (test code=MO#) 0.37 K/mm3 0-0.8 EOSINOPHIL # (test code=EO#) 0.34 K/mm3 0.0-0.5 BASOPHIL # (test code=BA#) 0.08 K/mm3 0.0-0.2 NUCLEATED RBC # (test code=NRBC#) 0.03 K/mm3 0.0-0.1 MANUAL DIFF REQUIRED (test code=MDIFF) NO, ONLY SCAN NEEDED DIFFERENTIAL [id number] 05:05:00* Test Item Value Reference Range Comments STAIN ACCEPTABILITY (test code=STN ACCEPTABLE) MORPHOLOGY COMMENT (test code=MOC) PLATELET ESTIMATE (test code=PLTEST) PLATELET MORPHOLOGY (test code=PLTMORPH) CBC W/AUTO [id number] 05:04:00* Test Item Value Reference Range Comments WHITE BLOOD CELL (test code=WBC) 6.5 K/mm3 4.5-12.5 RED BLOOD CELL (test code=RBC) 2.81 mill/mm3 4.0-5.8 HEMOGLOBIN (test code=HGB) 7.2 gram/dL 13.0-17.5 HEMATOCRIT (test code=HCT) 25.0 % 42.0-52.0 MEAN CELL VOLUME (test code=MCV) 89.0 fL 80-98 MEAN CELL HGB (test code=MCH) 25.6 picogram 27.0-33.0 MEAN CELL HGB CONCETRATION (test code=MCHC) 28.8 gram/dL 33.0-36.0 RED CELL DISTRIBUTION WIDTH (test code=RDW) 17.5 % 11.6-16.2 RED CELL DISTRIBUTION WIDTH SD (test code=RDW-SD) 56.4 fL 37.0-51.0 PLATELET COUNT (test code=PLT) 310 K/mm3 150-450 MEAN PLATELET VOLUME (test code=MPV) 9.4 fL 6.7-11.0 NEUTROPHIL % (test code=NT%) 69.4 % 39.0-69.0 IMMATURE GRANULOCYTE % (test code=IG%) 0.6 % 0.0-5.0 LYMPHOCYTE % (test code=LY%) 17.9 % 25.0-55.0 MONOCYTE % (test code=MO%) 5.7 % 0.0-10.0 EOSINOPHIL % (test code=EO%) 5.2 % 0.0-5.0 BASOPHIL % (test code=BA%) 1.2 % 0.0-1.0 NUCLEATED RBC % (test code=NRBC%) 0.5 % 0-0 NEUTROPHIL # (test code=NT#) 4.53 K/mm3 1.8-7.7 IMMATURE GRANULOCYTE # (test code=IG#) 0.04 x10 3/uL 0-0.03 LYMPHOCYTE # (test code=LY#) 1.17 K/mm3 1.0-5.0 MONOCYTE # (test code=MO#) 0.37 K/mm3 0-0.8 EOSINOPHIL # (test code=EO#) 0.34 K/mm3 0.0-0.5 BASOPHIL # (test code=BA#) 0.08 K/mm3 0.0-0.2 NUCLEATED RBC # (test code=NRBC#) 0.03 K/mm3 0.0-0.1 MANUAL DIFF REQUIRED (test code=MDIFF) NO, ONLY SCAN NEEDED DIFFERENTIAL [id number] 05:04:00* Test Item Value Reference Range Comments STAIN ACCEPTABILITY (test code=STN ACCEPTABLE) CABOT RINGS (test code=CAB) MORPHOLOGY COMMENT (test code=MOC) PLATELET ESTIMATE (test code=PLTEST) PLATELET MORPHOLOGY (test code=PLTMORPH) CBC W/AUTO [id number] 05:04:00* Test Item Value Reference Range Comments WHITE BLOOD CELL (test code=WBC) 6.5 K/mm3 4.5-12.5 RED BLOOD CELL (test code=RBC) 2.81 mill/mm3 4.0-5.8 HEMOGLOBIN (test code=HGB) 7.2 gram/dL 13.0-17.5 HEMATOCRIT (test code=HCT) 25.0 % 42.0-52.0 MEAN CELL VOLUME (test code=MCV) 89.0 fL 80-98 MEAN CELL HGB (test code=MCH) 25.6 picogram 27.0-33.0 MEAN CELL HGB CONCETRATION (test code=MCHC) 28.8 gram/dL 33.0-36.0 RED CELL DISTRIBUTION WIDTH (test code=RDW) 17.5 % 11.6-16.2 RED CELL DISTRIBUTION WIDTH SD (test code=RDW-SD) 56.4 fL 37.0-51.0 PLATELET COUNT (test code=PLT) 310 K/mm3 150-450 MEAN PLATELET VOLUME (test code=MPV) 9.4 fL 6.7-11.0 NEUTROPHIL % (test code=NT%) 69.4 % 39.0-69.0 IMMATURE GRANULOCYTE % (test code=IG%) 0.6 % 0.0-5.0 LYMPHOCYTE % (test code=LY%) 17.9 % 25.0-55.0 MONOCYTE % (test code=MO%) 5.7 % 0.0-10.0 EOSINOPHIL % (test code=EO%) 5.2 % 0.0-5.0 BASOPHIL % (test code=BA%) 1.2 % 0.0-1.0 NUCLEATED RBC % (test code=NRBC%) 0.5 % 0-0 NEUTROPHIL # (test code=NT#) 4.53 K/mm3 1.8-7.7 IMMATURE GRANULOCYTE # (test code=IG#) 0.04 x10 3/uL 0-0.03 LYMPHOCYTE # (test code=LY#) 1.17 K/mm3 1.0-5.0 MONOCYTE # (test code=MO#) 0.37 K/mm3 0-0.8 EOSINOPHIL # (test code=EO#) 0.34 K/mm3 0.0-0.5 BASOPHIL # (test code=BA#) 0.08 K/mm3 0.0-0.2 NUCLEATED RBC # (test code=NRBC#) 0.03 K/mm3 0.0-0.1 MANUAL DIFF REQUIRED (test code=MDIFF) NO, ONLY SCAN NEEDED DIFFERENTIAL [id number] 05:04:00* Test Item Value Reference Range Comments STAIN ACCEPTABILITY (test code=STN ACCEPTABLE) CABOT RINGS (test code=CAB) MORPHOLOGY COMMENT (test code=MOC) PLATELET ESTIMATE (test code=PLTEST) PLATELET MORPHOLOGY (test code=PLTMORPH) [id number] 14:41:00* Test Item Value Reference Range Comments GLUBED (test code=GLUBED) 89 mg/dL 74-106 Performed by certified cooky machine operator at [facility] [id number] 14:41:00* Test Item Value Reference Range Comments GLUBED (test code=GLUBED) 82 mg/dL 74-106 Performed by certified cooky machine operator at [facility] [id number] 10:38:00* Test Item Value Reference Range Comments GLUBED (test code=GLUBED) 180 mg/dL 74-106 Performed by certified cooky machine operator at [facility] [id number] 10:38:00* Test Item Value Reference Range Comments GLUBED (test code=GLUBED) 108 mg/dL 74-106 Performed by certified cooky machine operator at [facility] [id number] 07:41:00* Test Item Value Reference Range Comments CREATININE (test code=CREAT) 1.40 mg/dL 0.7-1.3 [id number] 06:20:00* Test Item Value Reference Range Comments GLUBED (test code=GLUBED) 154 mg/dL 74-106 Performed by certified cooky machine operator at [facility] CBC W/O [id number] 23:58:00* Test Item Value Reference Range Comments WHITE BLOOD CELL (test code=WBC) 6.3 K/mm3 4.5-12.5 RED BLOOD CELL (test code=RBC) 3.25 mill/mm3 4.0-5.8 HEMOGLOBIN (test code=HGB) 8.3 gram/dL 13.0-17.5 HEMATOCRIT (test code=HCT) 28.9 % 42.0-52.0 MEAN CELL VOLUME (test code=MCV) 88.9 fL 80-98 MEAN CELL HGB (test code=MCH) 25.5 picogram 27.0-33.0 MEAN CELL HGB CONCETRATION (test code=MCHC) 28.7 gram/dL 33.0-36.0 RED CELL DISTRIBUTION WIDTH (test code=RDW) 17.5 % 11.6-16.2 PLATELET COUNT (test code=PLT) 336 K/mm3 150-450 MEAN PLATELET VOLUME (test code=MPV) 9.1 fL 6.7-11.0 [id number] 21:29:00* Test Item Value Reference Range Comments GLUBED (test code=GLUBED) 213 mg/dL 74-106 Performed by certified cooky machine operator at [facility] BASIC METABOLIC [id number] 19:23:00* Test Item Value Reference Range Comments SODIUM (test code=NA) 140 mmol/L 136-145 POTASSIUM (test code=K) 5.0 mmol/L 3.5-5.1 CHLORIDE (test code=CL) 111.0 mmol/L 98-107 CARBON DIOXIDE (test code=CO2) 25.0 mmol/L 21-32 ANION GAP (test code=GAP) 9.0 10-20 GLUCOSE (test code=GLU) 222 mg/dL 74-106 BLOOD UREA NITROGEN (test code=BUN) 17 mg/dL 7-18 GLOMERULAR FILTRATION RATE (test code=GFR) 55 mL/min >=60 Estimated GFR by using Modified MDRD formula.Chronic kidney disease is defined as either kidney damageor GFR <60 mL/min/1.73 m2 for >3 months. CREATININE (test code=CREAT) 1.30 mg/dL 0.7-1.3 BUN/CREATININE RATIO (test code=BUN/CREA) 13.1 10-20 CALCIUM (test code=CA) 9.5 mg/dL 8.5-10.1 INCONSISTENT RESULT. PLEASE RECOLLECT SPECIMEN TO REPEAT.BASIC METABOLIC PANEL 2018-10-06 19:16:00* Test Item Value Reference Range Comments SODIUM (test code=NA) 140 mmol/L 136-145 POTASSIUM (test code=K) 5.0 mmol/L 3.5-5.1 CHLORIDE (test code=CL) 111.0 mmol/L 98-107 CARBON DIOXIDE (test code=CO2) 25.0 mmol/L 21-32 ANION GAP (test code=GAP) 9.0 10-20 GLUCOSE (test code=GLU) 222 mg/dL 74-106 BLOOD UREA NITROGEN (test code=BUN) 17 mg/dL 7-18 GLOMERULAR FILTRATION RATE (test code=GFR) 55 mL/min >=60 Estimated GFR by using Modified MDRD formula.Chronic kidney disease is defined as either kidney damageor GFR <60 mL/min/1.73 m2 for >3 months. CREATININE (test code=CREAT) 1.30 mg/dL 0.7-1.3 BUN/CREATININE RATIO (test code=BUN/CREA) 13.1 10-20 CALCIUM (test code=CA) mg/dL 8.5-10.1 INCONSISTENT RESULT. PLEASE RECOLLECT SPECIMEN TO REPEAT.CBC W/AUTO DIFF 2018-10-06 18:54:00* Test Item Value Reference Range Comments WHITE BLOOD CELL (test code=WBC) 6.0 K/mm3 4.5-12.5 RED BLOOD CELL (test code=RBC) 3.08 mill/mm3 4.0-5.8 HEMOGLOBIN (test code=HGB) 7.8 gram/dL 13.0-17.5 HEMATOCRIT (test code=HCT) 27.6 % 42.0-52.0 MEAN CELL VOLUME (test code=MCV) 89.6 fL 80-98 MEAN CELL HGB (test code=MCH) 25.3 picogram 27.0-33.0 MEAN CELL HGB CONCETRATION (test code=MCHC) 28.3 gram/dL 33.0-36.0 RED CELL DISTRIBUTION WIDTH (test code=RDW) 17.9 % 11.6-16.2 RED CELL DISTRIBUTION WIDTH SD (test code=RDW-SD) 58.0 fL 37.0-51.0 PLATELET COUNT (test code=PLT) 369 K/mm3 150-450 RESULT VERIFIED BY REPEAT ANALYSIS MEAN PLATELET VOLUME (test code=MPV) 10.1 fL 6.7-11.0 NEUTROPHIL % (test code=NT%) 91.6 % 39.0-69.0 IMMATURE GRANULOCYTE % (test code=IG%) 0.8 % 0.0-5.0 LYMPHOCYTE % (test code=LY%) 5.1 % 25.0-55.0 MONOCYTE % (test code=MO%) 1.3 % 0.0-10.0 EOSINOPHIL % (test code=EO%) 0.5 % 0.0-5.0 BASOPHIL % (test code=BA%) 0.7 % 0.0-1.0 NUCLEATED RBC % (test code=NRBC%) 0.0 % 0-0 NEUTROPHIL # (test code=NT#) 5.52 K/mm3 1.8-7.7 IMMATURE GRANULOCYTE # (test code=IG#) 0.05 x10 3/uL 0-0.03 LYMPHOCYTE # (test code=LY#) 0.31 K/mm3 1.0-5.0 MONOCYTE # (test code=MO#) 0.08 K/mm3 0-0.8 EOSINOPHIL # (test code=EO#) 0.03 K/mm3 0.0-0.5 BASOPHIL # (test code=BA#) 0.04 K/mm3 0.0-0.2 NUCLEATED RBC # (test code=NRBC#) 0.00 K/mm3 0.0-0.1 MANUAL DIFF REQUIRED (test code=MDIFF) NO [id number] 15:38:00* Test Item Value Reference Range Comments GLUBED (test code=GLUBED) 186 mg/dL 74-106 Performed by certified cooky machine operator at [facility] PROTHROMBIN [id number] 13:10:00* Test Item Value Reference Range Comments PROTHROMBIN TIME PATIENT (test code=PTP) 17.2 seconds 9.0-14.0 INTERNATIONAL NORMAL RATIO (test code=INR) 1.5 0.8-1.2 The therapeutic range for oral anticoagulant therapy formost indications is an international normalized ratio (INR)of between 2.0 and 3.0. The recommended therapeutic INRrange for various clinical situations is listed below: Clinical Situation INR range Pulmonary e mbolism treatment (2.0-3.0)Venous thrombosis treatmentVenous thrombosis prophylaxis (high risk surgery)Prevention of systemic embolism from: Acute myocardial infarction Valvular heart disease Atrial fibrillation Mechanical prosthetic heart valves (2.5-3.5) IS PATIENT ON ANTICOAGULANTS? [facility] W/O [id number] 12:32:00* Test Item Value Reference Range Comments WHITE BLOOD CELL (test code=WBC) 4.7 K/mm3 4.5-12.5 RED BLOOD CELL (test code=RBC) 2.34 mill/mm3 4.0-5.8 HEMOGLOBIN (test code=HGB) 6.1 gram/dL 13.0-17.5 REPEAT VALUE 6.1 HEMATOCRIT (test code=HCT) 20.6 % 42.0-52.0 Results called to [id number] by MORELIA 10/06/18 1224Critical results verified and read back by Nurse? Y MEAN CELL VOLUME (test code=MCV) 88.0 fL 80-98 MEAN CELL HGB (test code=MCH) 26.1 picogram 27.0-33.0 MEAN CELL HGB CONCETRATION (test code=MCHC) 29.6 gram/dL 33.0-36.0 RED CELL DISTRIBUTION WIDTH (test code=RDW) 18.5 % 11.6-16.2 PLATELET COUNT (test code=PLT) 311 K/mm3 150-450 MEAN PLATELET VOLUME (test code=MPV) 9.8 fL 6.7-11.0 PROCALCITONIN (PCT)2018-10-06 06:40:00* Test Item Value Reference Range Comments PROCALCITONIN (PCT) (test code=PROCAL) 0.10 ng/ml Concentration Interpretation (ng/mL) <0.51 Sepsis is not likely. Local bacterial infection is possible. (LOW RISK for progression to Sepsis) 0.51 - 2.00 Sepsis is possible, but other conditions are known to elevate PCT as well. (MODERATE RISK for progression to Sepsis) > 2.00 Sepsis is likely, unless other causes are known. (HIGH RISK for progression to Severe Sepsis or Septic Shock) 10.00 High likelihood of Severe Sepsis or Septic or higher Shock. *Increased PCT levels may not always be related to systemic bacterial infection.*Low PCT levels do not automatically exclude the presence of bacterial infection.*All results should be interpreted taking into account the patients history. [id number] 15:12:00* Test Item Value Reference Range Comments GLUBED (test code=GLUBED) 189 mg/dL 74-106 Performed by certified cooky machine operator at [facility] SED RATE [id number] 19:50:00* Test Item Value Reference Range Comments SED RATE WESTERGREN (test code=SEDW) 60 mm/hr 0-15 SED [id number] 19:50:00* Test Item Value Reference Range Comments SED RATE (test code=SEDW) 60 mm/hr 0-15 WINTROBE METHOD: NORMAL RANGE FOR MEN: 0-9 MM/HR WOMAN: 0-20 MM/HR CBC W/AUTO [id number] 17:48:00* Test Item Value Reference Range Comments WHITE BLOOD CELL (test code=WBC) 5.8 K/mm3 4.5-12.5 RED BLOOD CELL (test code=RBC) 3.10 mill/mm3 4.0-5.8 HEMOGLOBIN (test code=HGB) 8.1 gram/dL 13.0-17.5 HEMATOCRIT (test code=HCT) 30.3 % 42.0-52.0 MEAN CELL VOLUME (test code=MCV) 97.7 fL 80-98 RESULT VERIFIED BY REPEAT ANALYSIS MEAN CELL HGB (test code=MCH) 26.1 picogram 27.0-33.0 MEAN CELL HGB CONCETRATION (test code=MCHC) 26.7 gram/dL 33.0-36.0 RED CELL DISTRIBUTION WIDTH (test code=RDW) 18.8 % 11.6-16.2 RED CELL DISTRIBUTION WIDTH SD (test code=RDW-SD) 67.7 fL 37.0-51.0 PLATELET COUNT (test code=PLT) 287 K/mm3 150-450 MEAN PLATELET VOLUME (test code=MPV) 10.4 fL 6.7-11.0 NEUTROPHIL % (test code=NT%) 69.9 % 39.0-69.0 IMMATURE GRANULOCYTE % (test code=IG%) 4.2 % 0.0-5.0 LYMPHOCYTE % (test code=LY%) 8.0 % 25.0-55.0 MONOCYTE % (test code=MO%) 8.7 % 0.0-10.0 EOSINOPHIL % (test code=EO%) 7.3 % 0.0-5.0 BASOPHIL % (test code=BA%) 1.9 % 0.0-1.0 NUCLEATED RBC % (test code=NRBC%) 5.4 % 0-0 RESULT VERIFIED BY REPEAT ANALYSIS NEUTROPHIL # (test code=NT#) 4.04 K/mm3 1.8-7.7 IMMATURE GRANULOCYTE # (test code=IG#) 0.24 x10 3/uL 0-0.03 LYMPHOCYTE # (test code=LY#) 0.46 K/mm3 1.0-5.0 MONOCYTE # (test code=MO#) 0.50 K/mm3 0-0.8 EOSINOPHIL # (test code=EO#) 0.42 K/mm3 0.0-0.5 BASOPHIL # (test code=BA#) 0.11 K/mm3 0.0-0.2 NUCLEATED RBC # (test code=NRBC#) 0.31 K/mm3 0.0-0.1 MANUAL DIFF REQUIRED (test code=MDIFF) NO, ONLY SCAN NEEDED DIFFERENTIAL [id number] 17:48:00* Test Item Value Reference Range Comments STAIN ACCEPTABILITY (test code=STN ACCEPTABLE) STAIN ACCEPTABLE HYPOCHROMIA (test code=HYPO) 1+ PLATELET ESTIMATE (test code=PLTEST) ADEQUATE PLATELET MORPHOLOGY (test code=PLTMORPH) NORMAL VANCOMYCIN [id number] 17:28:00* Test Item Value Reference Range Comments VANCOMYCIN TROUGH (test code=VANCT) 19.0 ug/mL 10-20 CBC W/AUTO [id number] 16:48:00* Test Item Value Reference Range Comments WHITE BLOOD CELL (test code=WBC) 5.8 K/mm3 4.5-12.5 RED BLOOD CELL (test code=RBC) 3.10 mill/mm3 4.0-5.8 HEMOGLOBIN (test code=HGB) 8.1 gram/dL 13.0-17.5 HEMATOCRIT (test code=HCT) 30.3 % 42.0-52.0 MEAN CELL VOLUME (test code=MCV) 97.7 fL 80-98 RESULT VERIFIED BY REPEAT ANALYSIS MEAN CELL HGB (test code=MCH) 26.1 picogram 27.0-33.0 MEAN CELL HGB CONCETRATION (test code=MCHC) 26.7 gram/dL 33.0-36.0 RED CELL DISTRIBUTION WIDTH (test code=RDW) 18.8 % 11.6-16.2 RED CELL DISTRIBUTION WIDTH SD (test code=RDW-SD) 67.7 fL 37.0-51.0 PLATELET COUNT (test code=PLT) 287 K/mm3 150-450 MEAN PLATELET VOLUME (test code=MPV) 10.4 fL 6.7-11.0 NEUTROPHIL % (test code=NT%) 69.9 % 39.0-69.0 IMMATURE GRANULOCYTE % (test code=IG%) 4.2 % 0.0-5.0 LYMPHOCYTE % (test code=LY%) 8.0 % 25.0-55.0 MONOCYTE % (test code=MO%) 8.7 % 0.0-10.0 EOSINOPHIL % (test code=EO%) 7.3 % 0.0-5.0 BASOPHIL % (test code=BA%) 1.9 % 0.0-1.0 NUCLEATED RBC % (test code=NRBC%) 5.4 % 0-0 RESULT VERIFIED BY REPEAT ANALYSIS NEUTROPHIL # (test code=NT#) 4.04 K/mm3 1.8-7.7 IMMATURE GRANULOCYTE # (test code=IG#) 0.24 x10 3/uL 0-0.03 LYMPHOCYTE # (test code=LY#) 0.46 K/mm3 1.0-5.0 MONOCYTE # (test code=MO#) 0.50 K/mm3 0-0.8 EOSINOPHIL # (test code=EO#) 0.42 K/mm3 0.0-0.5 BASOPHIL # (test code=BA#) 0.11 K/mm3 0.0-0.2 NUCLEATED RBC # (test code=NRBC#) 0.31 K/mm3 0.0-0.1 MANUAL DIFF REQUIRED (test code=MDIFF) NO, ONLY SCAN NEEDED DIFFERENTIAL [id number] 16:48:00* Test Item Value Reference Range Comments STAIN ACCEPTABILITY (test code=STN ACCEPTABLE) CABOT RINGS (test code=CAB) MORPHOLOGY COMMENT (test code=MOC) PLATELET ESTIMATE (test code=PLTEST) PLATELET MORPHOLOGY (test code=PLTMORPH) CBC W/AUTO [id number] 16:48:00* Test Item Value Reference Range Comments WHITE BLOOD CELL (test code=WBC) 5.8 K/mm3 4.5-12.5 RED BLOOD CELL (test code=RBC) 3.10 mill/mm3 4.0-5.8 HEMOGLOBIN (test code=HGB) 8.1 gram/dL 13.0-17.5 HEMATOCRIT (test code=HCT) 30.3 % 42.0-52.0 MEAN CELL VOLUME (test code=MCV) 97.7 fL 80-98 RESULT VERIFIED BY REPEAT ANALYSIS MEAN CELL HGB (test code=MCH) 26.1 picogram 27.0-33.0 MEAN CELL HGB CONCETRATION (test code=MCHC) 26.7 gram/dL 33.0-36.0 RED CELL DISTRIBUTION WIDTH (test code=RDW) 18.8 % 11.6-16.2 RED CELL DISTRIBUTION WIDTH SD (test code=RDW-SD) 67.7 fL 37.0-51.0 PLATELET COUNT (test code=PLT) 287 K/mm3 150-450 MEAN PLATELET VOLUME (test code=MPV) 10.4 fL 6.7-11.0 NEUTROPHIL % (test code=NT%) 69.9 % 39.0-69.0 IMMATURE GRANULOCYTE % (test code=IG%) 4.2 % 0.0-5.0 LYMPHOCYTE % (test code=LY%) 8.0 % 25.0-55.0 MONOCYTE % (test code=MO%) 8.7 % 0.0-10.0 EOSINOPHIL % (test code=EO%) 7.3 % 0.0-5.0 BASOPHIL % (test code=BA%) 1.9 % 0.0-1.0 NUCLEATED RBC % (test code=NRBC%) 5.4 % 0-0 RESULT VERIFIED BY REPEAT ANALYSIS NEUTROPHIL # (test code=NT#) 4.04 K/mm3 1.8-7.7 IMMATURE GRANULOCYTE # (test code=IG#) 0.24 x10 3/uL 0-0.03 LYMPHOCYTE # (test code=LY#) 0.46 K/mm3 1.0-5.0 MONOCYTE # (test code=MO#) 0.50 K/mm3 0-0.8 EOSINOPHIL # (test code=EO#) 0.42 K/mm3 0.0-0.5 BASOPHIL # (test code=BA#) 0.11 K/mm3 0.0-0.2 NUCLEATED RBC # (test code=NRBC#) 0.31 K/mm3 0.0-0.1 MANUAL DIFF REQUIRED (test code=MDIFF) NO, ONLY SCAN NEEDED DIFFERENTIAL [id number] 16:48:00* Test Item Value Reference Range Comments STAIN ACCEPTABILITY (test code=STN ACCEPTABLE) CABOT RINGS (test code=CAB) MORPHOLOGY COMMENT (test code=MOC) PLATELET ESTIMATE (test code=PLTEST) PLATELET MORPHOLOGY (test code=PLTMORPH) CBC W/AUTO [id number] 16:48:00* Test Item Value Reference Range Comments WHITE BLOOD CELL (test code=WBC) 5.8 K/mm3 4.5-12.5 RED BLOOD CELL (test code=RBC) 3.10 mill/mm3 4.0-5.8 HEMOGLOBIN (test code=HGB) 8.1 gram/dL 13.0-17.5 HEMATOCRIT (test code=HCT) 30.3 % 42.0-52.0 MEAN CELL VOLUME (test code=MCV) 97.7 fL 80-98 RESULT VERIFIED BY REPEAT ANALYSIS MEAN CELL HGB (test code=MCH) 26.1 picogram 27.0-33.0 MEAN CELL HGB CONCETRATION (test code=MCHC) 26.7 gram/dL 33.0-36.0 RED CELL DISTRIBUTION WIDTH (test code=RDW) 18.8 % 11.6-16.2 RED CELL DISTRIBUTION WIDTH SD (test code=RDW-SD) 67.7 fL 37.0-51.0 PLATELET COUNT (test code=PLT) 287 K/mm3 150-450 MEAN PLATELET VOLUME (test code=MPV) 10.4 fL 6.7-11.0 NEUTROPHIL % (test code=NT%) 69.9 % 39.0-69.0 IMMATURE GRANULOCYTE % (test code=IG%) 4.2 % 0.0-5.0 LYMPHOCYTE % (test code=LY%) 8.0 % 25.0-55.0 MONOCYTE % (test code=MO%) 8.7 % 0.0-10.0 EOSINOPHIL % (test code=EO%) 7.3 % 0.0-5.0 BASOPHIL % (test code=BA%) 1.9 % 0.0-1.0 NUCLEATED RBC % (test code=NRBC%) 5.4 % 0-0 RESULT VERIFIED BY REPEAT ANALYSIS NEUTROPHIL # (test code=NT#) 4.04 K/mm3 1.8-7.7 IMMATURE GRANULOCYTE # (test code=IG#) 0.24 x10 3/uL 0-0.03 LYMPHOCYTE # (test code=LY#) 0.46 K/mm3 1.0-5.0 MONOCYTE # (test code=MO#) 0.50 K/mm3 0-0.8 EOSINOPHIL # (test code=EO#) 0.42 K/mm3 0.0-0.5 BASOPHIL # (test code=BA#) 0.11 K/mm3 0.0-0.2 NUCLEATED RBC # (test code=NRBC#) 0.31 K/mm3 0.0-0.1 MANUAL DIFF REQUIRED (test code=MDIFF) NO, ONLY SCAN NEEDED DIFFERENTIAL [id number] 16:48:00* Test Item Value Reference Range Comments STAIN ACCEPTABILITY (test code=STN ACCEPTABLE) MORPHOLOGY COMMENT (test code=MOC) PLATELET ESTIMATE (test code=PLTEST) PLATELET MORPHOLOGY (test code=PLTMORPH) CBC W/AUTO [id number] 16:48:00* Test Item Value Reference Range Comments WHITE BLOOD CELL (test code=WBC) 5.8 K/mm3 4.5-12.5 RED BLOOD CELL (test code=RBC) 3.10 mill/mm3 4.0-5.8 HEMOGLOBIN (test code=HGB) 8.1 gram/dL 13.0-17.5 HEMATOCRIT (test code=HCT) 30.3 % 42.0-52.0 MEAN CELL VOLUME (test code=MCV) 97.7 fL 80-98 RESULT VERIFIED BY REPEAT ANALYSIS MEAN CELL HGB (test code=MCH) 26.1 picogram 27.0-33.0 MEAN CELL HGB CONCETRATION (test code=MCHC) 26.7 gram/dL 33.0-36.0 RED CELL DISTRIBUTION WIDTH (test code=RDW) 18.8 % 11.6-16.2 RED CELL DISTRIBUTION WIDTH SD (test code=RDW-SD) 67.7 fL 37.0-51.0 PLATELET COUNT (test code=PLT) 287 K/mm3 150-450 MEAN PLATELET VOLUME (test code=MPV) 10.4 fL 6.7-11.0 NEUTROPHIL % (test code=NT%) 69.9 % 39.0-69.0 IMMATURE GRANULOCYTE % (test code=IG%) 4.2 % 0.0-5.0 LYMPHOCYTE % (test code=LY%) 8.0 % 25.0-55.0 MONOCYTE % (test code=MO%) 8.7 % 0.0-10.0 EOSINOPHIL % (test code=EO%) 7.3 % 0.0-5.0 BASOPHIL % (test code=BA%) 1.9 % 0.0-1.0 NUCLEATED RBC % (test code=NRBC%) 5.4 % 0-0 RESULT VERIFIED BY REPEAT ANALYSIS NEUTROPHIL # (test code=NT#) 4.04 K/mm3 1.8-7.7 IMMATURE GRANULOCYTE # (test code=IG#) 0.24 x10 3/uL 0-0.03 LYMPHOCYTE # (test code=LY#) 0.46 K/mm3 1.0-5.0 MONOCYTE # (test code=MO#) 0.50 K/mm3 0-0.8 EOSINOPHIL # (test code=EO#) 0.42 K/mm3 0.0-0.5 BASOPHIL # (test code=BA#) 0.11 K/mm3 0.0-0.2 NUCLEATED RBC # (test code=NRBC#) 0.31 K/mm3 0.0-0.1 MANUAL DIFF REQUIRED (test code=MDIFF) NO, ONLY SCAN NEEDED DIFFERENTIAL [id number] 16:48:00* Test Item Value Reference Range Comments STAIN ACCEPTABILITY (test code=STN ACCEPTABLE) CABOT RINGS (test code=CAB) MORPHOLOGY COMMENT (test code=MOC) PLATELET ESTIMATE (test code=PLTEST) PLATELET MORPHOLOGY (test code=PLTMORPH) THROMBOPLASTIN TIME [id number] 09:26:00* Test Item Value Reference Range Comments THROMBOPLASTIN TIME PARTIAL (test code=PTT) 33.6 seconds 25.0-36.5 IS PATIENT ON ANTICOAGULANTS? YLIST ANTICOAGULANTS HEPARINTHROMBOPLASTIN TIME [id number] 23:22:00* Test Item Value Reference Range Comments THROMBOPLASTIN TIME PARTIAL (test code=PTT) 49.5 seconds 25.0-36.5 IS PATIENT ON ANTICOAGULANTS? YLIST ANTICOAGULANTS HEPARINSPECIMEN COMMENTS: HEPARIN DRIP PROTOCOLCOMMENTS TO MOLD MACHINE OPERATOR: HEPARIN DRIP PROTOCOL THROMBOPLASTIN TIME [id number] 15:23:00* Test Item Value Reference Range Comments THROMBOPLASTIN TIME PARTIAL (test code=PTT) 36.9 seconds 25.0-36.5 IS PATIENT ON ANTICOAGULANTS? NC REACTIVE [id number] 15:18:00* Test Item Value Reference Range Comments C REACTIVE PROTEIN (test code=CRP) 15.30 mg/dL 0-0.3 [id number] 15:16:00* Test Item Value Reference Range Comments HEMATOCRIT (test code=HCT) 27.9 % 42.0-52.0 PLATELET [id number] 15:16:00* Test Item Value Reference Range Comments PLATELET COUNT (test code=PLT) 295 K/mm3 150-450 - XR ANKLE 2 VIEWS [id number] 15:08:00 FAX: Luis Manuel Louie [facility] [phone] [place]: [address] St: ADM FAX: Destinee Loza MD [phone] Name: FALLON LARSEN [facility] : 1950 Age/S: 68/M [address] Unit #: [id number] Loc: V.2048 EL[place] Guerrier [address] Phys: Luis Manuel Leggett DPM Acct: [id number] Dis Date: Status: ADM IN PHONE #: [phone] Exam Date: 10/03/2018 1435 FAX #: [phone] Reason: ankle wound right lateral EXAMS: CPT CODE: [id number] XR [place]KLE [address] [place] [id number] REASON FOR EXAM: ankle wound right lateral EXAM ORDER DATE: 10/03/2018 12:00 AM Ordering Ashu: Luis Manuel Leggett DPM PROCEDURE: - XR ANKLE 2 VIEWS RT FINDINGS: 3 views of the right ankle were obtained. Severe soft tissue swelling noted. Almost complete destruction of the tarsal bones with r esorption/erosion of the calcaneus and distal migration of the talus. Abn ormal widening of the syndesmosis consistent with destruction of the synde smosis. Severe irregularity of the articular surface of the tibia. Small subcutaneous air identified in the medial compartment IMP RESSION: Severe collapse of the tarsal bones including the superior ante rior portion of the calcaneus and the anterior portion of the talus with distal migration of the tibia and fibula suggestive of neuropathic arth ropathy and the present subcutaneous air with soft tissue swelling in th e medial compartment suggestive of underlying osteomyelitis/infection. at 1500 Reported and signed by: Spencer Mathur M.D. CC: Luis Manuel Leggett DPM; Destinee Loza MD Technologist: Nighat Bowles RT(R); Sheila StroudTChong(R) Trnscrd Date/Time/By: 10/03/2018 (6686) : By: Jakcie Orig Print D/T: S: 10/03/2018 (4404) PAGE 1 Signed Report CBC W/AUTO [id number] 14:16:00* Test Item Value Reference Range Comments WHITE BLOOD CELL (test code=WBC) 5.0 K/mm3 4.5-12.5 RED BLOOD CELL (test code=RBC) 3.05 mill/mm3 4.0-5.8 HEMOGLOBIN (test code=HGB) 7.6 gram/dL 13.0-17.5 HEMATOCRIT (test code=HCT) 26.7 % 42.0-52.0 MEAN CELL VOLUME (test code=MCV) 87.5 fL 80-98 MEAN CELL HGB (test code=MCH) 24.9 picogram 27.0-33.0 MEAN CELL HGB CONCETRATION (test code=MCHC) 28.5 gram/dL 33.0-36.0 RED CELL DISTRIBUTION WIDTH (test code=RDW) 18.5 % 11.6-16.2 RED CELL DISTRIBUTION WIDTH SD (test code=RDW-SD) 59.3 fL 37.0-51.0 PLATELET COUNT (test code=PLT) 281 K/mm3 150-450 RESULT VERIFIED BY REPEAT ANALYSIS MEAN PLATELET VOLUME (test code=MPV) 9.8 fL 6.7-11.0 NEUTROPHIL % (test code=NT%) 76.4 % 39.0-69.0 IMMATURE GRANULOCYTE % (test code=IG%) 0.6 % 0.0-5.0 LYMPHOCYTE % (test code=LY%) 12.7 % 25.0-55.0 MONOCYTE % (test code=MO%) 6.7 % 0.0-10.0 EOSINOPHIL % (test code=EO%) 2.6 % 0.0-5.0 BASOPHIL % (test code=BA%) 1.0 % 0.0-1.0 NUCLEATED RBC % (test code=NRBC%) 0.0 % 0-0 NEUTROPHIL # (test code=NT#) 3.79 K/mm3 1.8-7.7 IMMATURE GRANULOCYTE # (test code=IG#) 0.03 x10 3/uL 0-0.03 LYMPHOCYTE # (test code=LY#) 0.63 K/mm3 1.0-5.0 MONOCYTE # (test code=MO#) 0.33 K/mm3 0-0.8 EOSINOPHIL # (test code=EO#) 0.13 K/mm3 0.0-0.5 BASOPHIL # (test code=BA#) 0.05 K/mm3 0.0-0.2 NUCLEATED RBC # (test code=NRBC#) 0.00 K/mm3 0.0-0.1 MANUAL DIFF REQUIRED (test code=MDIFF) NO, ONLY SCAN NEEDED DIFFERENTIAL [id number] 14:16:00* Test Item Value Reference Range Comments STAIN ACCEPTABILITY (test code=STN ACCEPTABLE) STAIN ACCEPTABLE HYPOCHROMIA (test code=HYPO) 1+ ANISOCYTOSIS (test code=ANISO) 1+ PLATELET ESTIMATE (test code=PLTEST) ADEQUATE PLATELET MORPHOLOGY (test code=PLTMORPH) NORMAL FE W/TOTAL IRON BINDING CAP.2018-10-03 11:52:00* Test Item Value Reference Range Comments SERUM IRON (test code=IRON) 11 ug/dL 50-175 TOTAL IRON BINDING CAPACITY (test code=TIBC) 141 mcg/dL 250-450 IRON SATURATION (test code=FESAT) 7.80 % 13-45 VITAMIN [id number] 11:52:00* Test Item Value Reference Range Comments VITAMIN B12 (test code=VITB12) 3174 pg/mL 193-986 FOLIC [id number] 11:52:00* Test Item Value Reference Range Comments FOLIC ACID (test code=FOL) 44.0 ng/mL 3.10-17.50 [id number] 11:52:00* Test Item Value Reference Range Comments FERRITIN (test code=MARY) 355 ng/mL 8-388 - MRI BRAIN W/O [id number] 11:46:00 FAX: Destinee Loza MD [phone] [place]: B St: [facility] FAX: Didier Tovar MD [phone] Name: FALLON LARSEN [facility] : 1950 Age/S: 68/M [address] [facility] Unit #: [id number] Loc: V.2048 ELISHA Guerrier [address] Phys: Didier Tovar MD Acct: [id number] Dis Date: Status: ADM IN PHONE #: [phone] Exam Date: 10/03/2018 1056 FAX #: [phone] Reason: headache, abnml CT EXAMS: CPT CODE: [id number] MRI BRAIN W/O CONTRAST 40704 HISTORY: Abnormal head CT. COMPARISON: Head CT from previous day. MRI brain without contrast: Acute pu nctate right parietal periventricular infarct lacunar infarct. No large te rritorial infarction. No MR evidence for hemorrhage. Mild periventricular white matter ischemic change. Scattered lesions in the centrum semiovale w yokasta matter. No herniation, hydrocephalus or midline shift. Fourth ventric le is midline. Expected flow-voids are noted within the major intr acranial vasculature. VII and VIII nerve complex are symmetrical and familia l. Mastoid air cells are clear. Sinuses are clear. Intraorbital contents are unremarkable. The midbrain, arsalan and medulla are without mass eff ect. No cerebellar ectopia. Pituitary gland, optic chiasm and corpus callo sum are normal. Clivus demonstrated normal marrow signal. Moderate cortica l atrophy. Symmetrical hippocampi without mesial temporal sclerosis. No pa renchymal mass on this noncontrast study. IMPRESSION: Small acute lacunar infarct in the right periventricular parietal white matter. Electronically Signed by Ashu Anderson on 2018 at 1146 Reported and signed by: Chava Anderson M.D. CC: Destinee Loza MD; Didier Tovar MD Technol ogist: Sariah Bush([place]entín)(MR) Trnscrd Date/Time/ By: 10/03/2018 (1146) : By: [email or web address] Orig Print D/T: S: 10/03/2018 (6 150) PAGE 1 Signed Report [id number] 11:41:00* Test Item Value Reference Range Comments GLYCOSYLATED HEMOGLOBIN (HA1C) (test code=GLYHGB) < 3.5 % HbA1 4.8-6.0 ESTIMATED AVERAGE GLUCOSE (test code=EAG) 54 MG/DL PROCALCITONIN (PCT)2018-10-03 11:12:00* Test Item Value Reference Range Comments PROCALCITONIN (PCT) (test code=PROCAL) 0.59 ng/ml Concentration Interpretation (ng/mL) <0.51 Sepsis is not likely. Local bacterial infection is possible. (LOW RISK for progression to Sepsis) 0.51 - 2.00 Sepsis is possible, but other conditions are known to elevate PCT as well. (MODERATE RISK for progression to Sepsis) > 2.00 Sepsis is likely, unless other causes are known. (HIGH RISK for progression to Severe Sepsis or Septic Shock) 10.00 High likelihood of Severe Sepsis or Septic or higher Shock. *Increased PCT levels may not always be related to systemic bacterial infection.*Low PCT levels do not automatically exclude the presence of bacterial infection.*All results should be interpreted taking into account the patients history. LIPID PROFILE (CORONARY RISK)2018-10-03 10:57:00* Test Item Value Reference Range Comments TRIGLYCERIDES (test code=TRIG) 123 mg/dL 20-150 CHOLESTEROL (test code=CHOL) 86 mg/dL 0-200 CHOLESTEROL/HDL RATIO (test code=CHOLHDL) 4.0 RATIO 0-4.9 RISK ASSOCIATED WITH CHOL/HDL RATIOS: Risk Male Female1/2 AVERAGE 3.43 3.27AVERAGE 4.97 4.442X AVERAGE 9.55 7.053X AVERAGE 23.39 11.04 REFERENCE VALUE IS RELATED TO RISK LEVELS ASRECOMMENDED BY THE [facility]. HEART, LUNG, AND BLOOD INST. HDL CHOLESTEROL (test code=HDL) 20 mg/dL 40-60 LIPOPROTEIN LDL (test code=LDL) 50 mg/dL 100-129 Reference Interval: mg/dL mmol/L Optimal <100 <2.6Near/above optimal 100-129 2.6- 3.3Borderline High 130-159 3.4-4.1High 160-189 4.1-4.9Very High >=190 >=4.9=========This LDL result is a direct measurement.========= THYROID STIMULATING [id number] 10:57:00* Test Item Value Reference Range Comments THYROID STIMULATING HORMONE (test code=TSH) 1.500 uIU/mL 0.36-3.74 TSH REFERENCE RANGES: EUTHYROID: 0.35 - 4.3 mIU/mL HYPO : > 5.5 mIU/mL HYPER : < 0.35 mIU/mL CBC W/AUTO [id number] 10:40:00* Test Item Value Reference Range Comments WHITE BLOOD CELL (test code=WBC) 5.0 K/mm3 4.5-12.5 RED BLOOD CELL (test code=RBC) 3.05 mill/mm3 4.0-5.8 HEMOGLOBIN (test code=HGB) 7.6 gram/dL 13.0-17.5 HEMATOCRIT (test code=HCT) 26.7 % 42.0-52.0 MEAN CELL VOLUME (test code=MCV) 87.5 fL 80-98 MEAN CELL HGB (test code=MCH) 24.9 picogram 27.0-33.0 MEAN CELL HGB CONCETRATION (test code=MCHC) 28.5 gram/dL 33.0-36.0 RED CELL DISTRIBUTION WIDTH (test code=RDW) 18.5 % 11.6-16.2 RED CELL DISTRIBUTION WIDTH SD (test code=RDW-SD) 59.3 fL 37.0-51.0 PLATELET COUNT (test code=PLT) 281 K/mm3 150-450 RESULT VERIFIED BY REPEAT ANALYSIS MEAN PLATELET VOLUME (test code=MPV) 9.8 fL 6.7-11.0 NEUTROPHIL % (test code=NT%) 76.4 % 39.0-69.0 IMMATURE GRANULOCYTE % (test code=IG%) 0.6 % 0.0-5.0 LYMPHOCYTE % (test code=LY%) 12.7 % 25.0-55.0 MONOCYTE % (test code=MO%) 6.7 % 0.0-10.0 EOSINOPHIL % (test code=EO%) 2.6 % 0.0-5.0 BASOPHIL % (test code=BA%) 1.0 % 0.0-1.0 NUCLEATED RBC % (test code=NRBC%) 0.0 % 0-0 NEUTROPHIL # (test code=NT#) 3.79 K/mm3 1.8-7.7 IMMATURE GRANULOCYTE # (test code=IG#) 0.03 x10 3/uL 0-0.03 LYMPHOCYTE # (test code=LY#) 0.63 K/mm3 1.0-5.0 MONOCYTE # (test code=MO#) 0.33 K/mm3 0-0.8 EOSINOPHIL # (test code=EO#) 0.13 K/mm3 0.0-0.5 BASOPHIL # (test code=BA#) 0.05 K/mm3 0.0-0.2 NUCLEATED RBC # (test code=NRBC#) 0.00 K/mm3 0.0-0.1 MANUAL DIFF REQUIRED (test code=MDIFF) NO, ONLY SCAN NEEDED DIFFERENTIAL [id number] 10:40:00* Test Item Value Reference Range Comments STAIN ACCEPTABILITY (test code=STN ACCEPTABLE) CABOT RINGS (test code=CAB) MORPHOLOGY COMMENT (test code=MOC) PLATELET ESTIMATE (test code=PLTEST) PLATELET MORPHOLOGY (test code=PLTMORPH) CBC W/AUTO [id number] 10:40:00* Test Item Value Reference Range Comments WHITE BLOOD CELL (test code=WBC) 5.0 K/mm3 4.5-12.5 RED BLOOD CELL (test code=RBC) 3.05 mill/mm3 4.0-5.8 HEMOGLOBIN (test code=HGB) 7.6 gram/dL 13.0-17.5 HEMATOCRIT (test code=HCT) 26.7 % 42.0-52.0 MEAN CELL VOLUME (test code=MCV) 87.5 fL 80-98 MEAN CELL HGB (test code=MCH) 24.9 picogram 27.0-33.0 MEAN CELL HGB CONCETRATION (test code=MCHC) 28.5 gram/dL 33.0-36.0 RED CELL DISTRIBUTION WIDTH (test code=RDW) 18.5 % 11.6-16.2 RED CELL DISTRIBUTION WIDTH SD (test code=RDW-SD) 59.3 fL 37.0-51.0 PLATELET COUNT (test code=PLT) 281 K/mm3 150-450 RESULT VERIFIED BY REPEAT ANALYSIS MEAN PLATELET VOLUME (test code=MPV) 9.8 fL 6.7-11.0 NEUTROPHIL % (test code=NT%) 76.4 % 39.0-69.0 IMMATURE GRANULOCYTE % (test code=IG%) 0.6 % 0.0-5.0 LYMPHOCYTE % (test code=LY%) 12.7 % 25.0-55.0 MONOCYTE % (test code=MO%) 6.7 % 0.0-10.0 EOSINOPHIL % (test code=EO%) 2.6 % 0.0-5.0 BASOPHIL % (test code=BA%) 1.0 % 0.0-1.0 NUCLEATED RBC % (test code=NRBC%) 0.0 % 0-0 NEUTROPHIL # (test code=NT#) 3.79 K/mm3 1.8-7.7 IMMATURE GRANULOCYTE # (test code=IG#) 0.03 x10 3/uL 0-0.03 LYMPHOCYTE # (test code=LY#) 0.63 K/mm3 1.0-5.0 MONOCYTE # (test code=MO#) 0.33 K/mm3 0-0.8 EOSINOPHIL # (test code=EO#) 0.13 K/mm3 0.0-0.5 BASOPHIL # (test code=BA#) 0.05 K/mm3 0.0-0.2 NUCLEATED RBC # (test code=NRBC#) 0.00 K/mm3 0.0-0.1 MANUAL DIFF REQUIRED (test code=MDIFF) NO, ONLY SCAN NEEDED DIFFERENTIAL [id number] 10:40:00* Test Item Value Reference Range Comments STAIN ACCEPTABILITY (test code=STN ACCEPTABLE) MORPHOLOGY COMMENT (test code=MOC) PLATELET ESTIMATE (test code=PLTEST) PLATELET MORPHOLOGY (test code=PLTMORPH) CBC W/AUTO [id number] 10:40:00* Test Item Value Reference Range Comments WHITE BLOOD CELL (test code=WBC) 5.0 K/mm3 4.5-12.5 RED BLOOD CELL (test code=RBC) 3.05 mill/mm3 4.0-5.8 HEMOGLOBIN (test code=HGB) 7.6 gram/dL 13.0-17.5 HEMATOCRIT (test code=HCT) 26.7 % 42.0-52.0 MEAN CELL VOLUME (test code=MCV) 87.5 fL 80-98 MEAN CELL HGB (test code=MCH) 24.9 picogram 27.0-33.0 MEAN CELL HGB CONCETRATION (test code=MCHC) 28.5 gram/dL 33.0-36.0 RED CELL DISTRIBUTION WIDTH (test code=RDW) 18.5 % 11.6-16.2 RED CELL DISTRIBUTION WIDTH SD (test code=RDW-SD) 59.3 fL 37.0-51.0 PLATELET COUNT (test code=PLT) 281 K/mm3 150-450 RESULT VERIFIED BY REPEAT ANALYSIS MEAN PLATELET VOLUME (test code=MPV) 9.8 fL 6.7-11.0 NEUTROPHIL % (test code=NT%) 76.4 % 39.0-69.0 IMMATURE GRANULOCYTE % (test code=IG%) 0.6 % 0.0-5.0 LYMPHOCYTE % (test code=LY%) 12.7 % 25.0-55.0 MONOCYTE % (test code=MO%) 6.7 % 0.0-10.0 EOSINOPHIL % (test code=EO%) 2.6 % 0.0-5.0 BASOPHIL % (test code=BA%) 1.0 % 0.0-1.0 NUCLEATED RBC % (test code=NRBC%) 0.0 % 0-0 NEUTROPHIL # (test code=NT#) 3.79 K/mm3 1.8-7.7 IMMATURE GRANULOCYTE # (test code=IG#) 0.03 x10 3/uL 0-0.03 LYMPHOCYTE # (test code=LY#) 0.63 K/mm3 1.0-5.0 MONOCYTE # (test code=MO#) 0.33 K/mm3 0-0.8 EOSINOPHIL # (test code=EO#) 0.13 K/mm3 0.0-0.5 BASOPHIL # (test code=BA#) 0.05 K/mm3 0.0-0.2 NUCLEATED RBC # (test code=NRBC#) 0.00 K/mm3 0.0-0.1 MANUAL DIFF REQUIRED (test code=MDIFF) NO, ONLY SCAN NEEDED DIFFERENTIAL [id number] 10:40:00* Test Item Value Reference Range Comments STAIN ACCEPTABILITY (test code=STN ACCEPTABLE) MORPHOLOGY COMMENT (test code=MOC) PLATELET ESTIMATE (test code=PLTEST) PLATELET MORPHOLOGY (test code=PLTMORPH) CBC W/AUTO [id number] 10:40:00* Test Item Value Reference Range Comments WHITE BLOOD CELL (test code=WBC) 5.0 K/mm3 4.5-12.5 RED BLOOD CELL (test code=RBC) 3.05 mill/mm3 4.0-5.8 HEMOGLOBIN (test code=HGB) 7.6 gram/dL 13.0-17.5 HEMATOCRIT (test code=HCT) 26.7 % 42.0-52.0 MEAN CELL VOLUME (test code=MCV) 87.5 fL 80-98 MEAN CELL HGB (test code=MCH) 24.9 picogram 27.0-33.0 MEAN CELL HGB CONCETRATION (test code=MCHC) 28.5 gram/dL 33.0-36.0 RED CELL DISTRIBUTION WIDTH (test code=RDW) 18.5 % 11.6-16.2 RED CELL DISTRIBUTION WIDTH SD (test code=RDW-SD) 59.3 fL 37.0-51.0 PLATELET COUNT (test code=PLT) 281 K/mm3 150-450 RESULT VERIFIED BY REPEAT ANALYSIS MEAN PLATELET VOLUME (test code=MPV) 9.8 fL 6.7-11.0 NEUTROPHIL % (test code=NT%) 76.4 % 39.0-69.0 IMMATURE GRANULOCYTE % (test code=IG%) 0.6 % 0.0-5.0 LYMPHOCYTE % (test code=LY%) 12.7 % 25.0-55.0 MONOCYTE % (test code=MO%) 6.7 % 0.0-10.0 EOSINOPHIL % (test code=EO%) 2.6 % 0.0-5.0 BASOPHIL % (test code=BA%) 1.0 % 0.0-1.0 NUCLEATED RBC % (test code=NRBC%) 0.0 % 0-0 NEUTROPHIL # (test code=NT#) 3.79 K/mm3 1.8-7.7 IMMATURE GRANULOCYTE # (test code=IG#) 0.03 x10 3/uL 0-0.03 LYMPHOCYTE # (test code=LY#) 0.63 K/mm3 1.0-5.0 MONOCYTE # (test code=MO#) 0.33 K/mm3 0-0.8 EOSINOPHIL # (test code=EO#) 0.13 K/mm3 0.0-0.5 BASOPHIL # (test code=BA#) 0.05 K/mm3 0.0-0.2 NUCLEATED RBC # (test code=NRBC#) 0.00 K/mm3 0.0-0.1 MANUAL DIFF REQUIRED (test code=MDIFF) NO, ONLY SCAN NEEDED DIFFERENTIAL [id number] 10:40:00* Test Item Value Reference Range Comments STAIN ACCEPTABILITY (test code=STN ACCEPTABLE) CABOT RINGS (test code=CAB) MORPHOLOGY COMMENT (test code=MOC) PLATELET ESTIMATE (test code=PLTEST) PLATELET MORPHOLOGY (test code=PLTMORPH) LACTIC [id number] 10:26:00* Test Item Value Reference Range Comments LACTIC ACID (test code=LACT) 0.5 mmol/L 0.4-1.9 BASIC METABOLIC [id number] 03:43:00* Test Item Value Reference Range Comments SODIUM (test code=NA) 137 mmol/L 136-145 RESULT VERIFIED BY REPEAT ANALYSIS POTASSIUM (test code=K) 3.2 mmol/L 3.5-5.1 CHLORIDE (test code=CL) 106.0 mmol/L 98-107 CARBON DIOXIDE (test code=CO2) 21.0 mmol/L 21-32 Previously reported result: 21.0 mmol/LEdited by: SULAIMAN on 19:0342 ANION GAP (test code=GAP) 13.2 10-20 GLUCOSE (test code=GLU) 82 mg/dL 74-106 BLOOD UREA NITROGEN (test code=BUN) 50 mg/dL 7-18 GLOMERULAR FILTRATION RATE (test code=GFR) 28 mL/min >=60 Estimated GFR by using Modified MDRD formula.Chronic kidney disease is defined as either kidney damageor GFR <60 mL/min/1.73 m2 for >3 months. CREATININE (test code=CREAT) 2.30 mg/dL 0.7-1.3 BUN/CREATININE RATIO (test code=BUN/CREA) 21.7 10-20 CALCIUM (test code=CA) 9.0 mg/dL 8.5-10.1 BASIC METABOLIC [id number] 03:42:00* Test Item Value Reference Range Comments SODIUM (test code=NA) 137 mmol/L 136-145 RESULT VERIFIED BY REPEAT ANALYSIS POTASSIUM (test code=K) 3.2 mmol/L 3.5-5.1 CHLORIDE (test code=CL) 106.0 mmol/L 98-107 CARBON DIOXIDE (test code=CO2) mmol/L 21-32 ANION GAP (test code=GAP) 10-20 GLUCOSE (test code=GLU) mg/dL 74-106 BLOOD UREA NITROGEN (test code=BUN) mg/dL 7-18 GLOMERULAR FILTRATION RATE (test code=GFR) mL/min >=60 CREATININE (test code=CREAT) mg/dL 0.7-1.3 BUN/CREATININE RATIO (test code=BUN/CREA) 10-20 CALCIUM (test code=CA) mg/dL 8.5-10.1 BASIC METABOLIC [id number] 03:42:00* Test Item Value Reference Range Comments SODIUM (test code=NA) 137 mmol/L 136-145 RESULT VERIFIED BY REPEAT ANALYSIS POTASSIUM (test code=K) 3.2 mmol/L 3.5-5.1 CHLORIDE (test code=CL) 106.0 mmol/L 98-107 CARBON DIOXIDE (test code=CO2) 21.0 mmol/L 21-32 ANION GAP (test code=GAP) 10-20 GLUCOSE (test code=GLU) 82 mg/dL 74-106 BLOOD UREA NITROGEN (test code=BUN) 50 mg/dL 7-18 GLOMERULAR FILTRATION RATE (test code=GFR) 28 mL/min >=60 Estimated GFR by using Modified MDRD formula.Chronic kidney disease is defined as either kidney damageor GFR <60 mL/min/1.73 m2 for >3 months. CREATININE (test code=CREAT) 2.30 mg/dL 0.7-1.3 BUN/CREATININE RATIO (test code=BUN/CREA) 21.7 10-20 CALCIUM (test code=CA) 9.0 mg/dL 8.5-10.1 [id number] 03:30:00* Test Item Value Reference Range Comments TROPONIN-I (test code=TROPI) 0.051 ng/mL 0-0.045 RESULT VERIFIED BY REPEAT ANALYSIS COMMENTS TO MOLD MACHINE OPERATOR: COLLECT 3 HOURS AFTER PREVIOUS [id number] 22:33:00* Test Item Value Reference Range Comments TROPONIN-I (test code=TROPI) 0.059 ng/mL 0-0.045 Results called to [place] [address] by [facility]. 10/02/18 2233Critical results verified and read back by Nurse? Y COMMENTS TO MOLD MACHINE OPERATOR: COLLECT 3 HOURS AFTER PREVIOUS [id number] 22:26:00* Test Item Value Reference Range Comments GLUBED (test code=GLUBED) 106 mg/dL 74-106 Performed by certified cooky machine operator at [facility] - US RETROPERITONEAL [id number] 21:21:00 Name: FALLON LARSEN [facility] : 1950 Age/S: 68 / M [address] Unit #: [id number] Loc: ELISHA [place] [address] Phys: Miranda Valentine MD Acct: [id number] Dis Date: Status: ADM IN PHONE #: [phone] Exam Date: 10/02/20182112 FAX #: [phone] Reason: elevated Cr EXAMS: CPT CODE: [id number] US RETROPERITONEAL COM 20125 REASON FOR EXAM: elevated Cr EXAM ORDER DATE: 10/02/2018 8:44 PM Attending Ashu: Miranda Valentine MD PROCEDURE: - US RETROPERITONEAL COM FINDINGS: The right kidney was not seen. The left kidney measures 13.6 x 6.5 cm. The cross-sectional thickness of the left renal cortex measured 2.2 cm. There is no evidence of hydronephrosis. There is no evidence of nephrolithiasis. The urinary bladder is unremarkable IMPRESSION: 2.2 cm left renal cyst. Nonvisualization of the right kid jose at 2121 Reported and signed by: Spencer Mathur M.D. CC: Miranda Valentine MD; Destinee Loza MD Technologist: Hawa salazar RDMS Trnscb Date/Time: 10/02/2018 ( 2120) EdgardoVTL Orig Print D/T: S: 10/02/2018 (2124) Probe: PAGE 1 Signed Report - CT C-SPINE W/O [id number] 20:41:00 Name: FALLON LARSEN [facility] : 1950 Age[facility]S: 68 [facility] [address] [facility] [id number] Loc: EL[place]HA [place] [address] Phys: Triston Tovar MD Acct: [id number] Di s Date: Status: ADM IN PHONE #: Exam Date: 10/02/2018 1734 FAX #: [phone] Reason: neck pain EXAMS: CPT CODE: [id number] CT C-SPINE W/O CONTRAST 05869 REASON FOR EXAM: neck pain EXAM ORDER DATE: 10/02/2018 5:10 PM Orderi heather Wakefield: Didier Tovar MD PROCEDURE: - CT C-SPINE W/O CONTRAST FINDINGS: CT images of the cervical spine were obtained without IV contrast at 2.5mm. Reconstructed coronal and sagittal images were also provided. Dose modulation, iterative reconstruction, and/or weight based adjustment of the MA/KV was utilized to reduce the radiation dose to as low as reasonably achievable. The osseous structures are intact. Osteophytes are seen at C5-7 The central canal is patent. Moderate to severe narrowing of C5-6 and C6-7 disc spaces IMPRESSION: Degenerative changes and disc disease Electronically Sig dena by Ashu Mathur on 10/02/2018 at 2040 Reported and s igned by: Spencer Mathur M.D. CC: Didier Tovar MD Technologist:Jerri Truong RT(R); WALTER Baumann CTDI: DLP: Trnscb Date/Time: 10/02/2018 (2040) BhavikL Orig Print D/T: S: 10/03/2018 (1521) CTDI: DLP: PAGE 1 Signed Report - CT HEAD/BRAIN W/O [id number] 20:37:00 Name: FALLON LARSEN [facility] : 1950 Age/S: 68 / M [address] Unit #: [id number] Loc: ELISHA [place] [address] Phys: Didier Tovar MD Acct: [id number] Dis Date: Status: ADM IN PHONE #: [phone] Exam Date: 10/02/2018 1734 FAX #: [phone] Reason: headache fall EXAMS: CPT CODE: [id number] CT HEAD/BRAIN W/O CONT [id number] REASON FOR EXAM: headache fall EXAM ORDER DATE: 10/02/2018 5:10 PM Ordering Ashu: Didier Tovar MD PROCEDURE: - CT HEAD/BRAIN W/O CONT COMPARISON: FINDINGS: CT images of the brain were obtained without IV contrast. Dose modulation, iterative reconstruction, and/or weight based adjustment of the MA/KV was utilized to reduce the radiation dose to as low as reasonably achievable. The brain parenchyma is within normal limits. The grajeda-white matter delineation is unremarkable. The ventricles, cisterns, and sulci are unremarkable. There is no evidence of acute or old infarct. The calvarium is intact. IMPRESSION: Small right hyperdense area in the anterior temporal horn of the right lateral ventricle suggestive of artifact or choroid plexus. Recommend follow-up to rule out bleed. Dr Tovar was informed of the findings by telephone at 8:36PM FOR INTERNAL CODING PURPOSES ONLY RESULT CODE: CVR at 2036 Reported and signed by: Spencer Mathur M.D. CC: Didier Tovar MD Technologist:Jerri Truong RT(R); WALTER Baumann CTDI: DLP: Trnscb Date/Time: 10/02/2018 (2036) Jackie Orig Print D/T: S: 10/03/2018 (1520) CTDI: DLP: PAGE 1 Signed Report - XR CHEST 1 [id number] 20:32:00 FAX: Didier Tovar MD [phone] [place]: [address] St: ADM Name: FALLON MOTT [facility] : [birth year] Age/S: 68/M [address] Unit #: [id number] Loc: V.20[address] [place] [address] Phys: Didier Tovar MD Acct: [id number] Dis Date: Status: ADM IN PHONE #: [phone] Exam Date: 10/02/2018 1720 FAX #: [phone] Reason: CODE SEPSIS EXAMS: CPT CODE: [id number] XR CHEST 1 V 47745 REASON FOR EXAM: CODE SEPSIS EXAM ORDER DATE: 10/02/2018 4:56 PM Ordering M.D.: Didier Tovar MD PROCEDURE: - XR CHEST 1 V COMPAR JANETTE: FINDINGS: Portable AP frontal view of the chest obtained at 5:15 PM shows clear lungs without evidence of consolidation. There is no evidence of effusion. The heart size is minimally enlarged. Pulmonary vasculatures are minimally congested. A right arm PICC line noted. IMPRESSION: Minimal cardiomegaly and pulmonary venous congestion with atelectasis of the bases at 2031 Reported and signed by: Spencer Mathur M.D. CC: Didier Tovar MD Technologist: Sixto Harrison RT(R Trnscrd Date/Time/By: 10/02/2018 (2031) : By: EdgardoVTL Orig Print D/T: S: 0 10/03/2018 (0328) PAGE 1 Signed Re port - XR FOOT 3 + V [id number] 20:31:00 FAX: Didier Tovar MD [phone] [place]: [address] St: ADM Name: FALLON MOTT [facility] : [birth year] Age/S: 68/M [address] Unit #: [id number] Loc: V.2048 [place] [address] Phys: Didier Tovar MD Acct: [id number] Dis Date: Status: ADM IN PHONE #: [phone] Exam Date: 10/02/2018 1722 FAX #: [phone] Reason: foot redness EXAMS: CPT CODE: [id number] XR FOOT 3 + V RT [address] REASON FOR EXAM: foot redness EXAM ORDER DATE: 10/02/2018 4:56 PM Ordering M.DChong: Didier Tovar MD PROCEDURE: - XR FOOT 3 + V RT FINDINGS: 3 views of the right foot were obtained. Severe collapse of the metatarsal bone suggestive of Charcot joint. No obvious evidence of osteomyelitis IMPRESSION: Diffuse soft tissue swelling at 2030 Reported and signed by: Spencer Mathur M.D. CC: Didier Tovar MD Technologist: RT Estevan(R Trnscrd Date/Time/By: 10/02/2018 (2030) : By: EdgardoVTL Orig Print D/T: S: 10/03/2018 (7535) PAGE 1 Signed Report B-TYPE NATRIURETIC [id number] 19:36:00* Test Item Value Reference Range Comments B-TYPE NATRIURETIC PEPTIDE (test code=BNP) 46.24 pgram/mL 0-100 [id number] 19:16:00* Test Item Value Reference Range Comments MAGNESIUM (test code=MAG) 2.0 mg/dL 1.8-2.4 URINALYSIS [id number] 18:23:00* Test Item Value Reference Range Comments UA COLOR (test code=COLU) YELLOW YELLOW UA APPEARANCE (test code=APPU) CLEAR CLEAR UA GLUCOSE DIPSTICK (test code=DGLUU) NEGATIVE mg/dL NEGATIVE UA BILIRUBIN DIPSTICK (test code=BILU) NEGATIVE mg/dL NEGATIVE UA KETONE DIPSTICK (test code=KETU) NEGATIVE mg/dL NEGATIVE UA SPECIFIC GRAVITY (test code=SGU) 1.011 1.001-1.035 UA BLOOD DIPSTICK (test code=CHIO) 1+ (Small) mg/dL NEGATIVE UA PH DIPSTICK (test code=FELIX) 5.0 5.0-8.0 UA PROTEIN DIPSTICK (test code=PROU) NEGATIVE mg/dL NEGATIVE UA UROBILINIOGEN DIPSTICK (test code=URO) NEGATIVE mg/dL NEGATIVE UA NITRITE DIPSTICK (test code=ALEX) NEGATIVE NEGATIVE UA LEUKOCYTE ESTERASE W REFLEX (test code=LEUUR) NEGATIVE Harrison/uL NEGATIVE UA WBC (test code=WBCU) 0-5 per HPF 0-5 UA RBC (test code=RBCU) 0-2 #/HPF 0-5 UA EPITHELIAL CELLS (test code=EPIU) Few (2-5/hpf) per HPF FEW UA BACTERIA (test code=BACU) FEW #/HPF NONE UA HYALINE CAST (test code=HYALU) 3-5 #/LPF 0-5 UA GRANULAR CAST (test code=GRANU) 3-5 #/LPF NONE UA AMORPHOUS SEDIMENT (test code=AMORU) FEW #/LPF Urine Source? Clean CatchURINALYSIS [id number] 18:21:00* Test Item Value Reference Range Comments UA COLOR (test code=COLU) YELLOW YELLOW UA APPEARANCE (test code=APPU) CLEAR CLEAR UA GLUCOSE DIPSTICK (test code=DGLUU) NEGATIVE mg/dL NEGATIVE UA BILIRUBIN DIPSTICK (test code=BILU) NEGATIVE mg/dL NEGATIVE UA KETONE DIPSTICK (test code=KETU) NEGATIVE mg/dL NEGATIVE UA SPECIFIC GRAVITY (test code=SGU) 1.011 1.001-1.035 UA BLOOD DIPSTICK (test code=CHIO) 1+ (Small) mg/dL NEGATIVE UA PH DIPSTICK (test code=FELIX) 5.0 5.0-8.0 UA PROTEIN DIPSTICK (test code=PROU) NEGATIVE mg/dL NEGATIVE UA UROBILINIOGEN DIPSTICK (test code=URO) NEGATIVE mg/dL NEGATIVE UA NITRITE DIPSTICK (test code=ALEX) NEGATIVE NEGATIVE UA LEUKOCYTE ESTERASE W REFLEX (test code=LEUUR) NEGATIVE Harrison/uL NEGATIVE UA WBC (test code=WBCU) per HPF 0-5 UA RBC (test code=RBCU) per HPF 0-5 UA EPITHELIAL CELLS (test code=EPIU) per HPF Few UA BACTERIA (test code=BACU) per HPF NONE Urine Source? Clean CatchPROCALCITONIN (PCT)2018-10-02 17:50:00* Test Item Value Reference Range Comments PROCALCITONIN (PCT) (test code=PROCAL) 0.69 ng/ml Concentration Interpretation (ng/mL) <0.51 Sepsis is not likely. Local bacterial infection is possible. (LOW RISK for progression to Sepsis) 0.51 - 2.00 Sepsis is possible, but other conditions are known to elevate PCT as well. (MODERATE RISK for progression to Sepsis) > 2.00 Sepsis is likely, unless other causes are known. (HIGH RISK for progression to Severe Sepsis or Septic Shock) 10.00 High likelihood of Severe Sepsis or Septic or higher Shock. *Increased PCT levels may not always be related to systemic bacterial infection.*Low PCT levels do not automatically exclude the presence of bacterial infection.*All results should be interpreted taking into account the patients history. BASIC METABOLIC [id number] 17:43:00* Test Item Value Reference Range Comments SODIUM (test code=NA) 131 mmol/L 136-145 POTASSIUM (test code=K) 3.2 mmol/L 3.5-5.1 CHLORIDE (test code=CL) 98.0 mmol/L 98-107 CARBON DIOXIDE (test code=CO2) 21.0 mmol/L 21-32 ANION GAP (test code=GAP) 15.2 10-20 GLUCOSE (test code=GLU) 184 mg/dL 74-106 BLOOD UREA NITROGEN (test code=BUN) 55 mg/dL 7-18 GLOMERULAR FILTRATION RATE (test code=GFR) 24 mL/min >=60 Estimated GFR by using Modified MDRD formula.Chronic kidney disease is defined as either kidney damageor GFR <60 mL/min/1.73 m2 for >3 months. CREATININE (test code=CREAT) 2.70 mg/dL 0.7-1.3 BUN/CREATININE RATIO (test code=BUN/CREA) 20.4 10-20 CALCIUM (test code=CA) 9.0 mg/dL 8.5-10.1 HEPATIC FUNCTION [id number] 17:43:00* Test Item Value Reference Range Comments TOTAL PROTEIN (test code=PROT) 7.0 gram/dL 6.4-8.2 ALBUMIN (test code=ALB) 2.7 g/dL 3.4-5.0 GLOBULIN (test code=GLOB) 4.3 gram/dL 2.7-4.2 ALBUMIN/GLOBULIN RATIO (test code=A/G) 0.6 0.75-1.50 BILIRUBIN TOTAL (test code=BILT) 0.20 mg/dL 0.0-1.0 BILIRUBIN DIRECT (test code=BILD) 0.07 mg/dL 0.0-0.20 SGOT/AST (test code=AST) 46 IUnit/L 15-37 SGPT/ALT (test code=ALT) 51 IUnit/L 12-78 ALKALINE PHOSPHATASE TOTAL (test code=ALKP) 184 IUnit/L 45-117 Note change in reference range due to change in reagent. [id number] 17:43:00* Test Item Value Reference Range Comments TROPONIN-I (test code=TROPI) 0.031 ng/mL 0-0.045 PROTHROMBIN [id number] 17:42:00* Test Item Value Reference Range Comments PROTHROMBIN TIME PATIENT (test code=PTP) 20.8 seconds 9.0-14.0 INTERNATIONAL NORMAL RATIO (test code=INR) 1.8 0.8-1.2 The therapeutic range for oral anticoagulant therapy formost indications is an international normalized ratio (INR)of between 2.0 and 3.0. The recommended therapeutic INRrange for various clinical situations is listed below: Clinical Situation INR range Pulmonary e mbolism treatment (2.0-3.0)Venous thrombosis treatmentVenous thrombosis prophylaxis (high risk surgery)Prevention of systemic embolism from: Acute myocardial infarction Valvular heart disease Atrial fibrillation Mechanical prosthetic heart valves (2.5-3.5) IS PATIENT ON ANTICOAGULANTS? NTHROMBOPLASTIN TIME [id number] 17:42:00* Test Item Value Reference Range Comments THROMBOPLASTIN TIME PARTIAL (test code=PTT) 29.8 seconds 25.0-36.5 IS PATIENT ON ANTICOAGULANTS? NLACTIC [id number] 17:35:00* Test Item Value Reference Range Comments LACTIC ACID (test code=LACT) 1.3 mmol/L 0.4-1.9 BASIC METABOLIC [id number] 17:29:00* Test Item Value Reference Range Comments SODIUM (test code=NA) 131 mmol/L 136-145 POTASSIUM (test code=K) 3.2 mmol/L 3.5-5.1 CHLORIDE (test code=CL) 98.0 mmol/L 98-107 CARBON DIOXIDE (test code=CO2) mmol/L 21-32 ANION GAP (test code=GAP) 10-20 GLUCOSE (test code=GLU) mg/dL 74-106 BLOOD UREA NITROGEN (test code=BUN) mg/dL 7-18 GLOMERULAR FILTRATION RATE (test code=GFR) mL/min >=60 CREATININE (test code=CREAT) mg/dL 0.7-1.3 BUN/CREATININE RATIO (test code=BUN/CREA) 10-20 CALCIUM (test code=CA) mg/dL 8.5-10.1 HEPATIC FUNCTION [id number] 17:29:00* Test Item Value Reference Range Comments TOTAL PROTEIN (test code=PROT) gram/dL 6.4-8.2 ALBUMIN (test code=ALB) g/dL 3.4-5.0 GLOBULIN (test code=GLOB) gram/dL 2.7-4.2 ALBUMIN/GLOBULIN RATIO (test code=A/G) 0.75-1.50 BILIRUBIN TOTAL (test code=BILT) mg/dL 0.0-1.0 BILIRUBIN DIRECT (test code=BILD) mg/dL 0.0-0.20 SGOT/AST (test code=AST) IUnit/L 15-37 SGPT/ALT (test code=ALT) IUnit/L 12-78 ALKALINE PHOSPHATASE TOTAL (test code=ALKP) IUnit/L 45-117 [id number] 17:29:00* Test Item Value Reference Range Comments TROPONIN-I (test code=TROPI) ng/mL 0-0.045 CBC W/AUTO [id number] 17:26:00* Test Item Value Reference Range Comments WHITE BLOOD CELL (test code=WBC) 7.0 K/mm3 4.5-12.5 RED BLOOD CELL (test code=RBC) 3.49 mill/mm3 4.0-5.8 HEMOGLOBIN (test code=HGB) 9.0 gram/dL 13.0-17.5 HEMATOCRIT (test code=HCT) 29.8 % 42.0-52.0 MEAN CELL VOLUME (test code=MCV) 85.4 fL 80-98 MEAN CELL HGB (test code=MCH) 25.8 picogram 27.0-33.0 MEAN CELL HGB CONCETRATION (test code=MCHC) 30.2 gram/dL 33.0-36.0 RED CELL DISTRIBUTION WIDTH (test code=RDW) 18.5 % 11.6-16.2 RED CELL DISTRIBUTION WIDTH SD (test code=RDW-SD) 57.6 fL 37.0-51.0 PLATELET COUNT (test code=PLT) 338 K/mm3 150-450 MEAN PLATELET VOLUME (test code=MPV) 10.0 fL 6.7-11.0 NEUTROPHIL % (test code=NT%) 89.4 % 39.0-69.0 IMMATURE GRANULOCYTE % (test code=IG%) 0.6 % 0.0-5.0 LYMPHOCYTE % (test code=LY%) 3.7 % 25.0-55.0 MONOCYTE % (test code=MO%) 4.3 % 0.0-10.0 EOSINOPHIL % (test code=EO%) 1.3 % 0.0-5.0 BASOPHIL % (test code=BA%) 0.7 % 0.0-1.0 NUCLEATED RBC % (test code=NRBC%) 0.0 % 0-0 NEUTROPHIL # (test code=NT#) 6.26 K/mm3 1.8-7.7 IMMATURE GRANULOCYTE # (test code=IG#) 0.04 x10 3/uL 0-0.03 LYMPHOCYTE # (test code=LY#) 0.26 K/mm3 1.0-5.0 MONOCYTE # (test code=MO#) 0.30 K/mm3 0-0.8 EOSINOPHIL # (test code=EO#) 0.09 K/mm3 0.0-0.5 BASOPHIL # (test code=BA#) 0.05 K/mm3 0.0-0.2 NUCLEATED RBC # (test code=NRBC#) 0.00 K/mm3 0.0-0.1 MANUAL DIFF REQUIRED (test code=MDIFF) NO POC LACTIC [id number] 17:06:00* Test Item Value Reference Range Comments POC LACTIC ACID (test code=POCLAC) 1.04 MMOL/L 0.4-2.2
--- NOTE | 2019-02-22 08:48 | NUR ---
OCHOA BAG CHANGED TO OBTAIN UA
[2019-02-22 09:21] LABS: BASOPHILS % 0.5 % (0.0-1.0); EOSINOPHILS % 0.5 % (0.0-6.0); HEMATOCRIT 23.4 % (38.2-49.6); HEMOGLOBIN 7.4 g/dL (14.0-18.0); LYMPHOCYTES # (AUTO) 0.5 (1.0-3.2); LYMPHOCYTES % 7.6 % (18.0-39.1); MEAN CORPUSCULAR HEMOGLOBIN 27.7 pg (28-32); MEAN CORPUSCULAR HGB CONC 31.6 g/dL (31-35); MEAN CORPUSCULAR VOLUME 87.6 fL (81-99); MONOCYTES # (AUTO) 0.4 (0.2-0.8); MONOCYTES % 6.8 % (4.4-11.3); NEUTROPHILS # (AUTO) 5.1 (2.1-6.9); NEUTROPHILS % 83.3 % (38.7-80.0); PLATELET COUNT 196 x10e3/uL (140-360); RED BLOOD COUNT 2.67 x10e6/uL (4.3-5.7); RED CELL DISTRIBUTION WIDTH 16.8 % (11.7-14.4)
[2019-02-22 09:26] LABS: BILIRUBIN,URINE NEGATIVE (NEGATIVE); CLARITY,URINE SL CLOUDY (CLEAR); COLOR,URINE YELLOW (YELLOW); KETONES,URINE NEGATIVE (NEGATIVE); LEUKOCYTE ESTERASE ,URINE SMALL (NEGATIVE); NITRITE,URINE NEGATIVE (NEGATIVE); PROTEIN,URINE DIPSTICK 2+ (NEGATIVE); URINE UROBILINOGEN 0.2 mg/dL (0.2 - 1)
[2019-02-22 09:34] LABS: AMORPHOUS SEDIMENT,URINE FEW (FEW); BACTERIA,URINE FEW /HPF; EPITHELIAL CELLS,URINE FEW /LPF; MUCUS,URINE FEW (RARE); TRANSITIONAL EPI CELLS,URINE FEW
[2019-02-22 09:39] LABS: ALBUMIN 3.2 g/dL (3.5-5.0); ALBUMIN/GLOBULIN RATIO 1.1 (0.8-2.0); ANION GAP 13.9 mmol/L (8-16); CALCIUM 10.1 mg/dL (8.4-10.2); CREATININE, SERUM 2.16 mg/dL (0.72-1.25); POTASSIUM 3.9 mmol/L (3.5-5.1)
--- NOTE | 2019-02-22 09:42 | Diagnostic Imaging Report ---
History:AMS Comparison studies:None Technique: Axial images were obtained from the skull base to the vertex. Coronal and sagittal images reconstructed from the axial data. Intravenous contrast: None Dose modulation, iterative reconstruction, and/or weight based adjustment of the mA/kV was utilized to reduce the radiation dose to as low as reasonably achievable. Findings: Scalp/skull: No abnormalities. Extra-axial spaces: No masses. No fluid collections. Brain sulci: Mildly prominent. Ventricles: Mild compensatory dilatation. No hydrocephalus. Parenchyma: Cortical-based hypodensity with loss of grajeda-white differentiation at the right supramarginal, angular, superior and inferior temporal gyri. Scattered small hypodensities in the supratentorial white matter are small vessel ischemic changes. No masses, hemorrhage, acute or chronic cortical vascular insults. Sellar/suprasellar region: No abnormalities. Craniocervical junction: Patent foramen magnum. No Chiari one malformation. Incidental findings: Atherosclerotic calcifications in the carotid siphons . 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 Chronic findings: 1. Mild generalized volume loss. 2. Mild supratentorial white matter small vessel ischemic changes. The above finding was reported and acknowledged by Dr. Duron at 9:28 AM on 02/22/2019. Signed by: DR Cristian Perez M.D. on 02/22/2019 9:39 AM
[2019-02-22 09:46] LABS: CREATINE KINASE MB 1.1 ng/mL (0-5.0)
[2019-02-22 09:47] LABS: B-TYPE NATRIURETIC PEPTIDE2 488.9 pg/mL (0-100)
[2019-02-22 09:54] LABS: INR 1.26; PROTHROMBIN TIME 16.4 seconds (11.9-14.5)
--- NOTE | 2019-02-22 09:54 | Diagnostic Imaging Report ---
A single frontal view of the chest. HISTORY: Altered mental status COMPARISON: None available. DISCUSSION: Portable technique, limits sensitivity of the exam. Overlying monitoring leads. Tubes/Lines: None Lungs and pleura: Elevation versus eventration of the right hemidiaphragm. No evidence of a consolidative pneumonia or pulmonary alveolar edema. No definite pleural effusion or pneumothorax is identified. Heart and mediastinum: The cardiomediastinal silhouette appear(s) unremarkable. Bones and soft tissues: Severe degenerative changes of the glenohumeral joints. IMPRESSION: 1. Age-indeterminate elevation versus eventration of the right hemidiaphragm. 2. Otherwise, no acute radiographic abnormality. Signed by: Dr. Bull Villalta D.O., M.M.M. on 02/22/2019 9:51 AM
[2019-02-22 09:55] LABS: PARTIAL THROMBOPLASTIN TIME 35.1 seconds (23.8-35.5)
[2019-02-22] MEDS ORDERED: CEFTRIAXONE SOD 1 GM/NS 50 ML 50 ML IV ONE (10:00)
--- NOTE | 2019-02-22 10:25 | NUR ---
sitting at bedside and expresses concerns over inability to care for pt; states pt is normally a&o x3 put found pt on the floor this morning; states pt thinks is just trying to get rid of him but she states she just in not able to care for him and doesn't know what to do; nurse tells pt he will put her in contact with case mgmt to help navigate these issues; agrees with case mgmt consult
[2019-02-22] MEDS ORDERED: SODIUM CHLORIDE FLUSH 10 ML SYR INJ PRN (11:00)
[2019-02-22] MEDS ORDERED: ONDANSETRON HCL INJ 2MG/ML 2ML 2 MG/ML VIAL IV PRN (11:00)
[2019-02-22] MEDS ORDERED: SODIUM CHLORIDE 0.9% 250ML 250 ML IV ONE ×2 (11:00→13:15)
[2019-02-22] MEDS ORDERED: DEXTROSE 50% SYRINGE 50 ML IV PRN (11:00)
--- OUTSIDE RECORDS SUMMARY | 2019-02-22 11:06 | XMS REPORT | Clinical Summary ---
Author Author JARED [facility]Wis.dmWhite [facility] Center5[facility] Planet [facility]St[facility] Address Unknown Phone Unavailable Care Team Providers Care Circuit Walker Name Role Phone Nic Paz MD PCP [...] Advance Directives For more information, please contact: [address] [address] Date Inactivated Comments Code Status Date Activated 10/25/2013 5:35 PM All possible means of support, including: cardiac massage, mechanical ventilation, and defibrillation will be used to support life. Code ONE 10/21/2013 12:59 AM
--- OUTSIDE RECORDS SUMMARY | 2019-02-22 11:09 | XMS REPORT | Continuity of Care Document ---
Author Author [employer] [employer] Address Unknown Phone Unavailable Care Team Providers Care Reflexologist Name Role Phone [employer] Information [employer] Unavailable Unavailable Problems Problem Status Onset Date Classification Date Reported Comments Source THROMBECTOMY Active 01/18/2019 [facility] 3 Active 01/18/2019 [facility] MRSA WOUND Active 10/29/2018 [facility] Methicillin resistant Staphylococcus aureus (organism) Active 08/01/2018 Problem 02/07/2019 [facility] Joint Aspirate - 08/01/2018 Blood, 01/19/2017 Problem added by Discern Expert. Medical Group,[facility], JESSE Salmeron RIGHT LOWER LEG WOUND CHRCK Active 07/28/2018 [facility] RIGHT LEG SWELLING Active 07/15/2017 [facility] SENT BY Active 04/10/2017 [facility] DEEP GEORGIE THROMBOSIS Active 04/10/2017 [facility] CELLULITIS EVE LOWER EXTREMITY AFTER RES Active 01/19/2017 [facility] CELLULITITS,CHRONIC OSTEOMYELITIS ANKLE/ Active 01/19/2017 [facility] DR SENT DIABETIC/WOUND Active 01/19/2017 [facility] R06.02 - SHORTNESS OF BREATH Active 10/17/2016 JESSE Guerrier Gout (disorder) Active 07/05/2014 Problem 02/07/2019 Data migrated from [employer] on 11/20/14. Medical Group,[facility], JESSE Guerrier, JESSE Salmeron Chronic kidney disease stage 4 (disorder) Active 07/05/2014 Problem 10/20/2016 Data migrated from [employer] on 11/20/14. JESSE Guerrier Chronic osteomyelitis of the ankle and/or foot (disorder) Active 05/28/2014 Problem 02/07/2019 Data migrated from [employer] on 11/20/14. [facility] Group,[facility], JESSE Guerrier, JESSE Salmeron Edema (finding) Active 03/12/2014 Problem 10/20/2016 Data migrated from [employer] on 11/20/14. [facility] [place] Malignant hypertension (disorder) Active 11/23/2013 Problem 10/20/2016 Data migrated from [employer] on 11/20/14. [facility] [place] Depressive disorder (disorder) Active 08/10/2013 Problem 10/20/2016 Data migrated from [employer] on 11/20/14. [facility] [place] Impotence (disorder) Active 05/05/2013 Problem 10/20/2016 Data migrated from [email or web address] on 11/20/14. [facility] [place] Atrial fibrillation (disorder) Active Problem 02/07/2019 [facility], [facility] [place] Benign essential hypertension (disorder) Active Problem 02/07/2019 Data migrated from [employer] on 11/20/14. [facility] Group,[facility], [facility] [place], [facility] [place] Chronic diastolic heart failure (disorder) Active Problem 02/07/2019 [facility] Group,[facility], [facility] [place] Congestive heart failure (disorder) Resolved Problem 02/07/2019 [facility], [facility] [place] Diabetes mellitus (disorder) Resolved Problem 02/07/2019 [facility], [facility] [place], [facility] [place] Hypertensive disorder, systemic arterial (disorder) Resolved Problem 02/07/2019 [facility], [facility] [place] Metabolic encephalopathy (disorder) Active Problem 02/07/2019 [facility], [facility] [place] Osteomyelitis (disorder) Resolved Problem 02/07/2019 [facility], [facility] [place] Clear cell carcinoma of kidney (disorder) Resolved Problem 02/07/2019 [facility], [facility] [place], [facility] [place] Coffee ground vomiting (disorder) Active Problem 02/07/2019 [facility], [facility] [place] Asthma (disorder) Active Problem 10/20/2016 Data migrated from [employer] on 11/20/14. [facility] [place] Chronic kidney disease stage 3 (disorder) Active Problem 10/20/2016 Data migrated from [employer] on 11/20/14. [facility] [place] Dyspnea (finding) Active Problem 10/20/2016 Data migrated from [employer] on 11/20/14. [facility] [place] Malaise and fatigue (finding) Active Problem 10/20/2016 Data migrated from [employer] on 11/20/14. [facility] [place] Obesity (disorder) Active Problem 10/20/2016 [facility] [place] Post-inflammatory pulmonary fibrosis (disorder) Active Problem 10/20/2016 Data migrated from [employer] on 11/20/14. [facility] [place] Pure hypercholesterolemia (disorder) Active Problem 10/20/2016 Data migrated from [employer] on 11/20/14. [facility] [place] Spontaneous ecchymosis (finding) Active Problem 10/20/2016 Data migrated from [employer] on 11/20/14. [facility] [place] Hepatomegaly with splenomegaly, not elsewhere classified 2018 [facility] Hypercholesterolemia (disorder) Active Problem 02/07/2019 [facility] Group,[facility] ILLNESS, UNSPECIFIED Active [facility] CELLULITIS, UNSPECIFIED Active [facility] HYPOGLYCEMIA, UNSPECIFIED Active [facility] ACUTE EMBOLISM AND THOMBOS UNSP DEEP VEI Active [facility] Medications Medication Details Route Status Patient Instructions Ordering Provider Order Date Source Docusate Sodium 100 MG Oral Capsule [Colace] 100 mg, 1 cap, Route: PO, Drug form: CAP, Bedtime, Dosing Weight 95.007, kg, Start date: 02/04/19 21:00:00 CDT, Duration: 30 day, Stop date: 03/05/19 21:00:00 CDT, 0Notes: (Same as: Colace) (Do Not Crush) No Longer Active 02/05/2019 [facility] allopurinol 100 mg oral tablet 200 mg=2 tab, PO, Daily, 0 Refill(s) Active 02/04/2019 [facility] apixaban 5 mg oral tablet 5 mg=1 tab, PO, Q12H, 0 Refill(s) Active 02/04/2019 [facility] lisinopril 20 mg oral tablet 20 mg=1 tab, PO, BID, 0 Refill(s) Active 02/04/2019 [facility] metoprolol tartrate 25 mg oral tablet 25 mg=1 tab, PO, Q12H, 0 Refill(s) Active 02/04/2019 [facility] tamsulosin 0.4 mg oral capsule 0.4 mg=1 cap, PO, Daily, 0 Refill(s) Active 02/04/2019 [facility] Acetaminophen 650 MG Rectal Suppository 650 mg=1 supp, AK, Q6H, PRN Pain Score 1-3, 0 Refill(s) Active 02/04/2019 [facility] amLODIPine 10 mg oral tablet 10 mg=1 tab, PO, Daily, 0 Refill(s) Active 02/04/2019 [facility] Docusate Sodium 100 MG Oral Capsule [Colace] 100 mg=1 cap, PO, BID, 0 Refill(s) Inactive 02/04/2019 [facility] finasteride 5 mg oral tablet 5 mg=1 tab, PO, Daily, 0 Refill(s) Active 02/04/2019 [facility] Melatonin 5 MG Sublingual Tablet 5 mg=1 tab, PO, Bedtime, 0 Refill(s) Active 02/04/2019 [facility] torsemide 20 mg oral tablet 20 mg=1 tab, PO, BID, 0 Refill(s) Active 02/04/2019 [facility] NS (Bolus) IV 500 mL, 500 ml/hr, Infuse Over: 1 hr, Route: IV, 500, Drug form: INJ, ONCE, Priority: STAT, Dosing Weight 95.007 kg, Start date: 02/03/19 13:16:00 CDT, Stop date: 02/03/19 13:16:00 CDT, 0 Inactive 02/03/2019 [facility] NS 1,000 mL 1,000 mL, Rate: 75 ml/hr, Infuse over: 13.3 hr, Route: IV, Dosing Weight 95.007 kg, Total Volume: 1,000, Start date: 02/03/19 8:21:00 CDT, Duration: 30 day, Stop date: 03/05/19 8:20:00 CDT, 2.29, m2, 0 No Longer Active 02/03/2019 [facility] NS (Bolus) IV 500 mL, 250 ml/hr, Infuse Over: 2 hr, Route: IV, 500, Drug form: INJ, ONCE, Priority: STAT, Dosing Weight 95.007 kg, Start date: 02/03/19 7:28:00 CDT, Stop date: 02/03/19 7:28:00 CDT, 0 Inactive 02/03/2019 [facility] Seroquel 12.5 mg, 0.5 tab, Route: PO, Drug form: TAB, ONCE, Dosing Weight 95.007, kg, Start date: 02/02/19 20:00:00 CDT, Stop date: 02/02/19 20:00:00 CDT, 0 Inactive 02/03/2019 [facility] Seroquel 12.5 mg, Route: PO, Drug form: TAB, Bedtime, Dosing Weight 95.007, kg, PRN Agitation, Start date: 02/02/19 13:27:00 CDT, Duration: 30 day, Stop date: 03/04/19 13:26:00 CDT, 0 Inactive 02/02/2019 [facility] Seroquel 25 mg, 1 tab, Route: PO, Drug form: TAB, Daily, Dosing Weight 95.007, kg, Start date: 02/02/19 9:00:00 CDT, Duration: 30 day, Stop date: 03/03/19 9:00:00 CDT, 0Notes: (Same as: SEROquel) Inactive 02/02/2019 [facility] Seroquel 12.5 mg, 0.5 tab, Route: PO, Drug form: TAB, Bedtime, Dosing Weight 95.007, kg, PRN Agitation, Start date: 02/02/19 8:32:00 CDT, Duration: 30 day, Stop date: 03/04/19 8:31:00 CDT, 0Notes: (Same as: SEROquel) 12.5 mg=1/2 x 25 mg tab Inactive 02/02/2019 [facility] Melatonin 5 mg, 1 tab, Route: PO, Drug form: TAB, Bedtime, Dosing Weight 95.007, kg, Start date: 02/01/19 21:00:00 CDT, Duration: 30 day, Stop date: 03/02/19 21:00:00 CDT, 0Notes: (Same as: Melatonin) No Longer Active 02/02/2019 [facility] Seroquel 12.5 mg, 0.5 tab, Route: PO, Drug form: TAB, Q12H, Dosing Weight 95.007, kg, PRN Agitation, Start date: 02/01/19 9:40:00 CDT, Duration: 30 day, Stop date: 03/03/19 9:39:00 CDT, 0Notes: (Same as: SEROquel) 12.5 mg=1/2 x 25 mg tab No Longer Active 02/01/2019 [facility] Proscar 5 mg, 1 tab, Route: PO, Drug form: TAB, Daily, Dosing Weight 95.007, kg, Priority: NOW, Start date: 01/31/19 9:11:00 CDT, Duration: 30 day, Stop date: 03/02/19 9:00:00 CDT, 0Notes: (Same as: Proscar) & quot;Do Not Crush" Women of childbearing age should not touch or handle broken tablets No Longer Active 01/31/2019 [facility] Ferrlecit 125 mg, 10 mL, Route: IV, Q7D, Dosing Weight 95.007, kg, Start date: 01/30/19 12:00:00 CDT, Stop date: 03/20/19 10:00:00 CDT, 0Notes: (sodium ferric gluconate complex (elemental iron) 62.5 mg/5 ml INJ) "Limited stability. Use immediately after admixture" (Same as: Ferrlecit) MEDICATION WASTE Product Size: 62.5 mg Product Wasted: _0__ mg No Longer Active 01/30/2019 [facility] metoprolol tartrate 25 mg, 1 tab, Route: PO, Drug form: TAB, Q12H, Dosing Weight 95.007, kg, Start date: 01/30/19 12:00:00 CDT, Duration: 30 day, Stop date: 03/01/19 6:00:00 CDT, 0Notes: (Same as: Lopressor) No Longer Active 01/30/2019 [facility] ferrous gluconate 125 mg, Route: PO, Q7D, Dosing Weight 95.007, kg, Start date: 01/30/19 7:00:00 CDT, Stop date: 03/20/19 9:00:00 CDT Inactive 01/30/2019 [facility] Dulcolax Laxative 10 mg, 1 supp, Route: AK, Drug form: SUPP, ONCE, Dosing Weight 95.007, kg, Start date: 01/30/19 6:01:00 CDT, Stop date: 01/30/19 6:01:00 CDT, 0Notes: (Same As: Dulcolax, Bisco-Lax) Inactive 01/30/2019 [facility] magnesium citrate 58.2 MG/ML Oral Solution 150 ml, Route: PO, Drug Form: LIQ, Dosing Weight 95.007, kg, ONCE, STAT, Start date: 01/30/19 0:45:00 CDT, Stop date: 01/30/19 0:45:00 CDT, 0Notes: (Same as: Citrate of Magnesia) Concentration: 1.745 gm / 30 mL Inactive 01/30/2019 [facility] enalaprilat 1.25 mg, 1 mL, Route: IVP, Drug form: INJ, Q6H, Dosing Weight 95.007, kg, PRN Hypertension, for CrCl > 30 mL/min, Start date: 01/29/19 22:43:00 CDT, Duration: 30 day, Stop date: 02/28/19 22:42:00 CDT, 0Notes: (Same as: Vasotec-IV) No Longer Active 01/30/2019 [facility] Eliquis 5 mg, 1 tab, Route: PO, Drug form: TAB, Q12H, Dosing Weight 95.007, kg, Start date: 01/29/19 21:00:00 CDT, Duration: 30 day, Stop date: 02/28/19 9:00:00 CDT, 0Notes: Same as: Eliquis No Longer Active 01/30/2019 [facility] Norvasc 10 mg, 1 tab, Route: PO, Drug form: TAB, Daily, Dosing Weight 95.007, kg, Priority: NOW, Start date: 01/28/19 15:35:00 CDT, Duration: 30 day, Stop date: 02/27/19 9:00:00 CDT, 0Notes: (Same as: Norvasc) No Longer Active 01/28/2019 [facility] Finasteride 1 mg, 1 tab, Route: DHT, Drug form: TAB, Daily, Dosing Weight 95.007, kg, Priority: NOW, Start date: 01/28/19 15:34:00 CDT, Duration: 30 day, Stop date: 02/27/19 9:00:00 CDT, 0Notes: Same as Proscar &qu ot;Do Not Crush" Women of childbearing age should not touch or handle broken tablets No Longer Active 01/28/2019 [facility] Dextrose 5% in Water IV 1,000 mL 1,000 mL, Rate: 100 ml/hr, Infuse over: 10 hr, Route: IV, Dosing Weight 95.007 kg, Total Volume: 1,000, Start date: 01/28/19 15:32:00 CDT, Duration: 30 day, Stop date: 02/27/19 15:31:00 CDT, 2.29, m2, 0 No Longer Active 01/28/2019 [facility] Levsin SL 0.125 mg, 1 tab, Route: SL, Drug form: TAB, Q6H, Dosing Weight 95.007, kg, PRN Bladder Spasm, Start date: 01/28/19 15:32:00 CDT, Duration: 30 day, Stop date: 02/27/19 15:31:00 CDT, 0Notes: (Same as: Levsin) Take 30 min before meal No Longer Active 01/28/2019 [facility] NIFEdipine 90 mg oral tablet, extended release 90 mg, 1 tab, Route: PO, Drug form: ERTAB, Daily, Dosing Weight 95.007, kg, Start date: 01/28/19 9:00:00 CDT, Duration: 30 day, Stop date: 02/26/19 9:00:00 CDT, 0Notes: (Same as: Adalat CC,Procardia XL) "Do Not Crush" "Avoid grapefruit and grapefruit juice" Inactive 01/28/2019 [facility] tamsulosin 0.4 mg, 1 cap, Route: PO, Drug form: CAP, Daily, Dosing Weight 95.007, kg, Start date: 01/28/19 9:00:00 CDT, Duration: 30 day, Stop date: 02/26/19 9:00:00 CDT, 0Notes: (Same As: Flomax) "Do Not Crush" No Longer Active 01/28/2019 [facility] Allopurinol 200 mg, 2 tab, Route: PO, Drug form: TAB, Daily, Dosing Weight 95.007, kg, Start date: 01/28/19 9:00:00 CDT, Duration: 30 day, Stop date: 02/26/19 9:00:00 CDT, 0Notes: (Same as: Zyloprim) No Longer Active 01/28/2019 [facility] Sodium Chloride 0.9% (titrate) 250 mL 250 mL, Rate: To prime line and flush remaining blood products., Dosing Weight 95.007, kg, Route: IV, Total Volume: 250, Start Date: 01/28/19 6:28:00 CDT, Duration: 1 day, Stop date: 01/29/19 6:27:00 CDT, Replace Every: 24 hr, 0 Inactive 01/28/2019 [facility] Sodium Chloride 0.9% (titrate) 250 mL 250 mL, Rate: To prime line and flush remaining blood products., Dosing Weight 95.007, kg, Route: IV, Total Volume: 250, Start Date: 01/28/19 6:24:00 CDT, Duration: 1 day, Stop date: 01/29/19 6:23:00 CDT, Replace Every: 24 hr, 0 Inactive 01/28/2019 [facility] remove patch 2 patch, Route: TOP, Daily, Drug form: ERFILM, Start date: 01/28/19 4:00:00 CDT, Duration: 30 day, Stop date: 02/26/19 4:00:00 CDT, 0 No Longer Active 01/28/2019 [facility] Tylenol Route: IV, Drug form: INJ, ONCE, Dosing Weight 95.007, kg, Start date: 01/28/19 0:17:00 CDT, Stop date: 01/28/19 0:17:00 CDT, 0Notes: Infuse over 15 minutes Do not exceed 4gm/day of acetaminophen MEDICATION WASTE Product Size: 1000 mg Product Wasted: ___ mg Inactive 01/28/2019 [facility] Chlorpheniramine 4 mg, Route: PO, Drug form: TAB, ONCE, Dosing Weight 95.007, kg, PRN Allergic reaction, Start date: 01/27/19 22:35:00 CDT Inactive 01/28/2019 [facility] Docusate Sodium 100 MG Oral Capsule [Colace] 100 mg, 1 cap, Route: PO, Drug form: CAP, BID, Dosing Weight 95.007, kg, Start date: 01/27/19 17:00:00 CDT, Duration: 30 day, Stop date: 02/26/19 9:00:00 CDT, 0Notes: (Same as: Colace) (Do Not Crush) No Longer Active 01/27/2019 [facility] sennosides, SKILLED NURSING 8.6 mg, 1 tab, Route: PO, Drug Form: TAB, Dosing Weight 95.007, kg, BID, Start date: 01/27/19 17:00:00 CDT, Duration: 30 day, Stop date: 02/26/19 9:00:00 CDT, 0Notes: (Same as: Senokot) No Longer Active 01/27/2019 [facility] Lidocaine 0.05 MG/MG Transdermal Patch 2 patch, Route: TOP, QPM, Drug form: FILM, Start date: 01/27/19 16:00:00 CDT, Duration: 30 day, Stop date: 02/25/19 16:00:00 CDT, 0 No Longer Active 01/27/2019 [facility] Acetaminophen 650 mg, 1 supp, Route: AK, Drug form: SUPP, Q6H, Dosing Weight 95.007, kg, PRN Pain Score 1-3, Start date: 01/27/19 15:12:00 CDT, Duration: 30 day, Stop date: 02/26/19 15:11:00 CDT, 0 No Longer Active 01/27/2019 [facility] Lidocaine 0.05 MG/MG Transdermal Patch 1 patch, Route: TOP, Daily, Drug form: FILM, Start date: 01/27/19 15:01:00 CDT, Duration: 30 day, Stop date: 02/26/19 9:00:00 CDT Inactive 01/27/2019 [facility] Robaxin 500 mg, 5 mL, Route: IV, Drug form: INJ, ONCE, Dosing Weight 95.007, kg, Priority: NOW, Start date: 01/27/19 15:00:00 CDT, Stop date: 01/27/19 15:00:00 CDT, 0Notes: (Same as:Robaxin) Inactive 01/27/2019 [facility] torsemide 20 mg, 1 tab, Route: PO, Drug form: TAB, BID, Dosing Weight 95.007, kg, Start date: 01/27/19 9:00:00 CDT, Duration: 30 day, Stop date: 02/25/19 17:00:00 CDT, 0Notes: (Same As: Demadex) No Longer Active 01/27/2019 [facility] Lisinopril 20 mg, 1 tab, Route: PO, Drug form: TAB, BID, Dosing Weight 95.007, kg, Start date: 01/27/19 9:00:00 CDT, Duration: 30 day, Stop date: 02/25/19 17:00:00 CDT, 0Notes: (Same as: Prinivil, Zestril) No Longer Active 01/27/2019 [facility] heparin additive 25,000 unit [14 unit/kg/hr] + Premix Diluent Sodium Chloride 0.45% 500 mL 500 mL, Rate: 26.6 ml/hr, Infuse over: 18.8 hr, Route: IV, Dosing Weight 95 kg, Total Volume: 500 mL, Start date: 01/27/19 5:09:00 CDT, Duration: 30 day, Stop date: 02/26/19 5:08:00 CDT, 2.29, m2, 0Note s: Total Concentration=50 unit/ ml Total oqgfjy=064 ml Send Med Request 2 hours prior to next bag No Longer Active 01/27/2019 [facility] Versed 2 mg, 2 mL, Route: IVP, Drug form: INJ, PRN, Dosing Weight 95.007, kg, PRN Other -See Comment, Start date: 01/27/19 2:33:00 CDT, Duration: 2 doses or times, Stop date: Limited # of times, 0Notes: (Same as: Versed) MEDICATION WASTE Product Size: 2 mg Product Wasted: ___ mg Inactive 01/27/2019 [facility] atorvastatin 20 mg, 1 tab, Route: GT, Drug form: TAB, Bedtime, Dosing Weight 111.591, kg, Start date: 01/26/19 21:00:00 CDT, Duration: 30 day, Stop date: 02/24/19 21:00:00 CDT, 0Notes: (Same As: Lipitor) No Longer Active 01/27/2019 [facility] Saline Flush 0.9% 10 ml, Route: IVP, Drug Form: INJ, Dosing Weight 111.591, kg, Q12H, Start date: 01/26/19 21:00:00 CDT, Duration: 30 day, Stop date: 02/25/19 9:00:00 CDT, 0Notes: (Same as: BD Posiflush) No Longer Active 01/27/2019 [facility] Aspirin 300 MG Rectal Suppository 300 mg, 1 supp, Route: AK, Drug form: SUPP, ONCE, Dosing Weight 95.007, kg, Priority: STAT, Start date: 01/26/19 18:04:00 CDT, Stop date: 01/26/19 18:04:00 CDT, 0Notes: Refrigerate. Inactive 01/26/2019 [facility] Labetalol 10 mg, 2 mL, Route: IVP, Drug form: INJ, Q10Min, Dosing Weight 95.007, kg, PRN Other -See Comment, Start date: 01/26/19 17:53:00 CDT, Duration: 30 day, Stop date: 02/25/19 17:52:00 CDT, 0 No Longer Active 01/26/2019 [facility] Nicardipine 20 mg, 200 mL, Rate: Titrate, Start Dose: 5 mg/hr, Titration: 2.5 mg/hr every 15 minutes, Goal(s): SBP 110-140, Max Dose: 15 mg/hr, Route: IV, Dosing Weight 95.007 kg, Total Volume: 200, Start date: 11/09 17:33:00 CDT, Duration: 30 day, Stop date:...Notes: Same as: Cardene Concentration: (0.1 mg/ 1 ml) No Longer Active 01/26/2019 [facility] Cardene 40 mg in NS 200 mL (Titrate.) IV 40 mg 40 mg, 200 mL, Rate: Titrate, Start Dose: 5 mg/hr, Titration: 2.5 mg/hr every 15 minutes, Goal(s): sbp 110-140 goal, Max Dose: 15 mg/hr, Route: IV, Dosing Weight 95.007 kg, Total Volume: 200, Start date: 01/26/19 17:17:00 CDT, Duration: 30 day, Stop d... Inactive 01/26/2019 [facility] Glucagon 1 mg, Route: IV, Drug form: PDR/INJ, ONCE, Dosing Weight 95.007, kg, Start date: 01/26/19 16:40:00 CDT, Stop date: 01/26/19 16:40:00 CDT, 0 Inactive 01/26/2019 [facility] Glucagon 1 mg, Route: SUB-Q, ONCE, Dosing Weight 95.007, kg, Start date: 01/26/19 16:39:00 CDT, Stop date: 01/26/19 16:39:00 CDT Inactive 01/26/2019 [facility] heparin sodium, porcine 2500 UNT/ML Injectable Solution 5,000 unit, 1 mL, Route: SUB-Q, Drug form: INJ, Q8H, Dosing Weight 111.591, kg, Start date: 01/26/19 16:00:00 CDT, Duration: 30 day, Stop date: 02/25/19 8:00:00 CDT, 0Notes: porcine heparin No Longer Active 01/26/2019 [facility] Acetaminophen 650 mg, 2 tab, Route: PO, Drug form: TAB, Q6H, Dosing Weight 111.591, kg, PRN Pain Score 1-3, Start date: 01/26/19 14:18:00 CDT, Duration: 30 day, Stop date: 02/25/19 14:17:00 CDT, 0Notes: Do not exceed 4 gm/day. (Same as: Tylenol) No Longer Active 01/26/2019 [facility] Ondansetron 4 mg, 2 mL, Route: IVP, Drug form: INJ, Q8H, Dosing Weight 111.591, kg, PRN Nausea, Start date: 01/26/19 14:18:00 CDT, Duration: 30 day, Stop date: 02/25/19 14:17:00 CDT, 0Notes: (Same as: Zofran) MEDICATION WASTE Product Size: 4 mg Product Wasted: ___ mg No Longer Active 01/26/2019 [facility] aspirin 81 mg tablet, enteric coated 81 mg, 1 tab, Route: PO, Drug form: ECTAB, Daily, Dosing Weight 111.591, kg, Priority: Routine, Start date: 01/26/19 14:00:00 CDT, Duration: 30 day, Stop date: 02/25/19 9:00:00 CDT, 0Notes: Do not crush or chew. (Same As: Ecotrin) No Longer Active 01/26/2019 [facility] Labetalol 10 mg, 2 mL, Route: IVP, Drug form: INJ, Q5Min, Dosing Weight 111.591, kg, PRN Elevated BP, Start date: 01/26/19 11:40:00 CDT, Duration: 5 doses or times, Stop date: Limited # of times, 0 Inactive 01/26/2019 [facility] Hydromorphone 0.5 mg, 0.25 mL, Route: IVP, Drug form: INJ, Q5Min, Dosing Weight 111.591, kg, PRN Pain Score 7-10, Start date: 01/26/19 11:40:00 CDT, Duration: 4 doses or times, Stop date: Limited # of times, 0Notes: Same as Dilaudid Inactive 01/26/2019 [facility] Flumazenil 0.2 mg, 2 mL, Route: IVP, Drug form: INJ, PRN, Dosing Weight 111.591, kg, PRN Benzodiazepine Reversal, Initial dose, Start date: 01/26/19 11:40:00 CDT, Duration: 1 day, Stop date: 01/27/19 11:39:00 CDT, 0Notes: (Same as: Romazicon) Inactive 01/26/2019 [facility] Naloxone 0.4 mg, 1 mL, Route: IVP, Drug form: INJ, Q2MIN, Dosing Weight 111.591, kg, PRN Narcotic Reversal, Start date: 01/26/19 11:40:00 CDT, Duration: 8 doses or times, Stop date: Limited # of times, 0Notes: Same as Narcan Inactive 01/26/2019 [facility] Ondansetron 4 mg, 2 mL, Route: IVP, Drug form: INJ, ONCE, Dosing Weight 111.591, kg, PRN Nausea & Vomiting, Start date: 01/26/19 11:40:00 CDT, 0Notes: (Same as: Zofran) MEDICATION WASTE Product Size: 4 mg Product Wasted: ___ mg Inactive [facility]26/2019 [facility] [facility] NS 1,000 mL 1,000 mL, Rate: 75 ml/hr, Infuse over: 13.3 hr, Route: IV, Dosing Weight 111.591 kg, Total Volume: 1,000, Start date: 01/26/19 11:38:00 CDT, Duration: 30 day, Stop date: 02/25/19 11:37:00 CDT, 2.48, m2, 0 No Longer Active 01/26/2019 [facility] Aspirin 81 mg, 1 tab, Route: PO, Drug form: ECTAB, Daily, Dosing Weight 111.591, kg, Priority: NOW, Start date: 01/26/19 11:36:00 CDT, Duration: 30 day, Stop date: 02/25/19 9:00:00 CDT, 0Notes: Do not crush or chew. (Same As: Ecotrin) Inactive 01/26/2019 [facility] Visipaque RediFlo Cartridge 150 mL, Route: INTRAARTERIAL, ONCE, Dosing Weight 111.591, kg, Start date: 01/26/19 11:21:00 CDT, Stop date: 01/26/19 11:21:00 CDT Inactive 01/26/2019 [facility] Saline Flush 0.9% 10 ml, Route: IVP, Drug Form: INJ, Dosing Weight 111.591, kg, PRN, PRN Line Flush, Start date: 01/26/19 11:00:00 CDT, Duration: 30 day, Stop date: 02/25/19 10:59:00 CDT, 0Notes: (Same as: BD Posiflush) No Longer Active 01/26/2019 [facility] ceFAZolin (ANES) Route: IV, Drug form: INJ, ONCE, Stop date: 01/26/19 8:34:00 CDT Inactive 01/26/2019 [facility] fentaNYL (ANES) Route: IV, Drug form: INJ, ONCE, Stop date: 01/26/19 8:24:00 CDT Inactive 01/26/2019 [facility] propofol (ANES) Route: IV, Drug form: INJ, ONCE, Stop date: 01/26/19 8:24:00 CDT Inactive 01/26/2019 [facility] Labetalol 10 mg, 2 mL, Route: IVP, Drug form: INJ, Q5Min, Dosing Weight 111.591, kg, PRN Elevated BP, Start date: 01/26/19 8:23:00 CDT, Duration: 5 doses or times, Stop date: 01/27/19 0:00:00 CDT, 0 Inactive 01/26/2019 [facility] Oxycodone Hydrochloride 5 MG Oral Tablet 5 mg, 1 tab, Route: PO, Drug form: TAB, Q4H, Dosing Weight 111.591, kg, PRN Pain Score 4-6, Start date: 01/26/19 8:23:00 CDT, Stop date: 01/27/19 8:22:00 CDT, 0Notes: (Same as: Roxicodone) Inactive 01/26/2019 [facility] Flumazenil 0.2 mg, 2 mL, Route: IVP, Drug form: INJ, PRN, Dosing Weight 111.591, kg, PRN Benzodiazepine Reversal, Initial dose, Start date: 01/26/19 8:23:00 CDT, Stop date: 01/27/19 8:22:00 CDT, 0Notes: (Same as: Romazicon) Inactive 01/26/2019 [facility] Naloxone 0.4 mg, 1 mL, Route: IVP, Drug form: INJ, Q2MIN, Dosing Weight 111.591, kg, PRN Narcotic Reversal, Start date: 01/26/19 8:23:00 CDT, Duration: 8 doses or times, Stop date: 01/27/19 0:00:00 CDT, 0Notes: Same as Narcan Inactive 01/26/2019 [facility] Ondansetron 4 mg, 2 mL, Route: IVP, Drug form: INJ, ONCE, Dosing Weight 111.591, kg, PRN Nausea & Vomiting, Start date: 01/26/19 8:23:00 CDT, 0Notes: (Same as: Zofran) MEDICATION WASTE Product Size: 4 mg Product Wasted: ___ mg Inactive 01/26/2019 [facility] midazolam (ANES) Route: IV, Drug form: SOLN, ONCE, Stop date: 01/26/19 8:19:00 CDT Inactive 01/26/2019 [facility] Metolazone 5 MG Oral Tablet 5 mg=1 tab, PO, BID, 0 Refill(s) No Longer Active 01/26/2019 [facility] Acetaminophen 300 MG / Codeine Phosphate 60 MG Oral Tablet [Tylenol with Codeine #4] 1 tab, PO, Q6H, PRN pain, 0 Refill(s) No Longer Active 01/26/2019 [facility] Lactated Ringers Injection IV (ANES) 1000 mL Route: IV, Total Volume: 1,000, Start date: 01/26/19 7:33:00 CDT, Stop date: 01/26/19 8:33:00 CDT Inactive 01/26/2019 [facility] apixaban 5 MG Oral Tablet [Eliquis] 5 mg, PO, Q12H, 0 Refill(s) No Longer Active 01/26/2019 [facility] Acetaminophen 325 MG / Hydrocodone Bitartrate 10 MG Oral Tablet [Carrie 10/325] 1 tab, PO, Q6H, 0 Refill(s) No Longer Active 01/26/2019 [facility] potassium chloride 25 mEq oral powder 0 Refill(s) No Longer Active 01/26/2019 [facility] rosuvastatin 5 mg oral tablet 5 mg=1 tab, PO, Daily, 0 Refill(s) No Longer Active 01/26/2019 [facility] torsemide 20 mg oral tablet 20 mg=1 tab, PO, BID, 0 Refill(s) No Longer Active 01/26/2019 [facility] lisinopril 40 mg oral tablet 40 mg=1 tab, PO, BID, 0 Refill(s) No Longer Active 01/26/2019 [facility] Acetaminophen 325 MG / Hydrocodone Bitartrate 10 MG Oral Tablet 1 tab, PO, Q6H, PRN Pain Score 7-10, X 3 day, # 12 tab, 0 Refill(s), given to patient Active 11/07/2018 [facility] enoxaparin 40 mg/0.4 mL subcutaneous solution 40 mg, SUB- Q, Daily, X 30 day, # 30 ea, 0 Refill(s), other Active 11/07/2018 [facility] pantoprazole 40 mg oral enteric coated tablet 40 mg=1 tab, PO, Before Breakfast, 0 Refill(s) Active 11/07/2018 [facility] Aspirin 81 MG Enteric Coated Tablet 81 mg=1 tab, PO, Daily, 0 Refill(s) Active 11/07/2018 [facility] ceFAZolin (ANES) Route: IV, Drug form: INJ, ONCE, Stop date: 11/07/18 11:50:00 CDT Inactive 11/07/2018 [facility] propofol (ANES) Route: IV, Drug form: INJ, ONCE, Stop date: 11/07/18 11:40:00 CDT Inactive 11/07/2018 [facility] fentaNYL (ANES) Route: IV, Drug form: INJ, ONCE, Stop date: 11/07/18 11:35:00 CDT Inactive 11/07/2018 [facility] Fentanyl 50 microgram, 1 mL, Route: IVP, Drug form: INJ, Q5Min, Dosing Weight 103.009, kg, PRN Pain Score 7-10, Priority: Routine, Start date: 11/07/18 11:27:00 CDT, Duration: 2 doses or times, Stop date: 11/08/18 0:00:00 CDTNotes: (Same as: Sublimaze) Preservative free. Inactive 11/07/2018 [facility] Flumazenil 0.2 mg, 2 mL, Route: IVP, Drug form: INJ, PRN, Dosing Weight 103.009, kg, PRN Benzodiazepine Reversal, Initial dose, Start date: 11/07/18 11:27:00 CDT, Stop date: 11/08/18 0:00:00 CDTNotes: (Same as: Romazicon) Inactive 11/07/2018 [facility] Naloxone 0.4 mg, 1 mL, Route: IVP, Drug form: INJ, Q2MIN, Dosing Weight 103.009, kg, PRN Narcotic Reversal, Start date: 11/07/18 11:27:00 CDT, Duration: 8 doses or times, Stop date: 11/08/18 0:00:00 CDTNotes: Same as Narcan Inactive 11/07/2018 [facility] Oxycodone 5 mg, 1 tab, Route: PO, Drug form: TAB, Q4H, Dosing Weight 103.009, kg, PRN Pain Score 4-6, Start date: 11/07/18 11:27:00 CDT, Stop date: 11/08/18 0:00:00 CDTNotes: (Same as: Roxicodone) Inactive 11/07/2018 [facility] Labetalol 10 mg, 2 mL, Route: IVP, Drug form: INJ, Q5Min, Dosing Weight 103.009, kg, PRN Elevated BP, Start date: 11/07/18 11:27:00 CDT, Duration: 5 doses or times, Stop date: 11/08/18 0:00:00 CDT Inactive 11/07/2018 [facility] Sodium Chloride 0.9% IV 1,000 mL 1,000 mL, Rate: 125 ml/hr, Infuse over: 8 hr, Route: IV, Dosing Weight 103.009 kg, Total Volume: 1,000, Start date: 11/07/18 11:27:00 CDT, Duration: 30 day, Stop date: 12/07/18 11:26:00 CDT, 2.38, m2 Inactive 11/07/2018 [facility] Ondansetron 4 mg, 2 mL, Route: IVP, Drug form: INJ, ONCE, Dosing Weight 103.009, kg, PRN Nausea & Vomiting, Start date: 11/07/18 11:27:00 CDTNotes: (Same as: Zofran) MEDICATION WASTE Product Size: 4 mg Product Wasted: ___ mg Inactive 11/07/2018 [facility] Sodium Chloride 0.9% (Bolus) IV 500 mL, 1500 ml/hr, Infuse Over: 20 minutes, Route: IV, 500, Drug form: INJ, ONCE, Dosing Weight 103.009 kg, Start date: 11/07/18 11:27:00 CDT, Stop date: 11/07/18 11:27:00 CDT Inactive 11/07/2018 [facility] Isolyte S PH 7.4 (ANES) 1000 mL Route: IV, Total Volume: 1,000, Start date: 11/07/18 10:43:00 CDT, Stop date: 11/07/18 11:43:00 CDT Inactive 11/07/2018 [facility] Lovenox 30 mg, 0.3 mL, Route: SUB-Q, Drug form: INJ, Daily, Dosing Weight 103.009, kg, Start date: 11/04/18 9:00:00 CDT, Duration: 30 day, Stop date: 12/03/18 9:00:00 CDTNotes: (Same as: Lovenox) No Longer Active 11/04/2018 [facility] Hydromorphone 0.5 mg, 0.25 mL, Route: IVP, Drug form: INJ, ONCE, Dosing Weight 103.009, kg, Priority: STAT, Start date: 11/04/18 8:43:00 CDT, Stop date: 11/04/18 8:43:00 CDTNotes: Same as Dilaudid Inactive 11/04/2018 [facility] Cefazolin 2 gm, 20 mL, Route: IVP, Drug form: SOLN, ABXQ8H, Dosing Weight 103.009, kg, Start date: 11/03/18 23:00:00 CDT, Duration: 2 day, Stop date: 11/05/18 15:00:00 CDT, ABX Indication: Surgical Prophylaxis No Longer Active 11/04/2018 [facility] Morphine 2 mg, 0.5 mL, Route: IVP, Drug form: SOLN, ONCE, Dosing Weight 103.009, kg, Start date: 11/03/18 21:40:00 CDT, Stop date: 11/03/18 21:40:00 CDTNotes: (Same as:MORPhine Sulfate) Inactive 11/04/2018 [facility] gabapentin 300 MG Oral Capsule 300 mg, Route: PO, Drug form: CAP, ONCE, Dosing Weight 103.009, kg, Start date: 11/03/18 19:53:00 CDT, Stop date: 11/03/18 19:53:00 CDT Inactive 11/04/2018 [facility] Lactated Ringers IV 1,000 mL 1,000 mL, Rate: 125 ml/hr, Infuse over: 8 hr, Route: IV, Dosing Weight 103.009 kg, Total Volume: 1,000, Start date: 11/03/18 17:13:00 CDT, Duration: 30 day, Stop date: 12/03/18 17:12:00 CDT, 2.38, m2 No Longer Active 11/03/2018 [facility] sugammadex (ANES) Route: IV, Drug form: SOLN, ONCE, Stop date: 11/03/18 17:10:00 CDT Inactive 11/03/2018 [facility] ondansetron (ANES) Route: IV, Drug form: INJ, ONCE, Stop date: 11/03/18 17:05:00 CDT Inactive 11/03/2018 [facility] calcium chloride (ANES) Route: IV, Drug form: INJ, ONCE, Stop date: 11/03/18 17:00:00 CDT Inactive 11/03/2018 [facility] sugammadex 200 mg, 2 mL, Route: IV, Drug form: SOLN, ONCALL, Start date: 11/03/18 16:22:00 CDT, Duration: 1 doses or times, Stop date: 11/03/18 16:22:00 CDTNotes: (Same as: Bridion) No Longer Active 11/03/2018 [facility] esmolol (ANES) Route: IV, Drug form: INJ, ONCE, Stop date: 11/03/18 16:18:00 CDT Inactive 11/03/2018 [facility] phenylephrine (ANES) Route: IV, Drug form: INJ, ONCE, Stop date: 11/03/18 16:03:00 CDT Inactive 11/03/2018 [facility] ceFAZolin (ANES) Route: IV, Drug form: INJ, ONCE, Stop date: 11/03/18 15:53:00 CDT Inactive 11/03/2018 [facility] rocuronium ([facility]) Route: IV, Drug form: INJ, ONCE, Stop date: 11/03/18 15:43:00 CDT Inactive 11/03/2018 [facility] propofol ([facility]) Route: IV, Drug form: INJ, ONCE, Stop date: 11/03/18 15:43:00 CDT Inactive 11/03/2018 [facility] fentaNYL (ANES) Route: IV, Drug form: INJ, ONCE, Stop date: 11/03/18 15:43:00 CDT Inactive 11/03/2018 [facility] lidocaine (ANES) Route: IV, Drug form: INJ, ONCE, Stop date: 11/03/18 15:43:00 CDT Inactive 11/03/2018 [facility] Sodium Chloride 0.9% IV (ANES) 1000 mL Route: IV, Total Volume: 1,000, Start date: 11/03/18 15:37:00 CDT, Stop date: 11/03/18 16:37:00 CDT Inactive 11/03/2018 [facility] Hydromorphone 0.5 mg, 0.25 mL, Route: IVP, Drug form: INJ, Q5Min, Dosing Weight 103.009, kg, PRN Pain Score 7-10, Start date: 11/03/18 15:28:00 CDT, Duration: 4 doses or times, Stop date: 11/04/18 0:00:00 CDTNotes: Same as Dilaudid Inactive 11/03/2018 [facility] Naloxone 0.4 mg, 1 mL, Route: IVP, Drug form: INJ, Q2MIN, Dosing Weight 103.009, kg, PRN Narcotic Reversal, Start date: 11/03/18 15:28:00 CDT, Duration: 8 doses or times, Stop date: 11/04/18 0:00:00 CDTNotes: Same as Narcan Inactive 11/03/2018 [facility] Flumazenil 0.2 mg, 2 mL, Route: IVP, Drug form: INJ, PRN, Dosing Weight 103.009, kg, PRN Benzodiazepine Reversal, Initial dose, Start date: 11/03/18 15:28:00 CDT, Stop date: 11/04/18 0:00:00 CDTNotes: (Same as: Romazicon) Inactive 11/03/2018 [facility] Ondansetron 4 mg, 2 mL, Route: IVP, Drug form: INJ, ONCE, Dosing Weight 103.009, kg, PRN Nausea & Vomiting, Start date: 11/03/18 15:28:00 CDTNotes: (Same as: Zofran) MEDICATION WASTE Product Size: 4 mg Product Wasted: ___ mg Inactive 11/03/2018 [facility] Labetalol 10 mg, 2 mL, Route: IVP, Drug form: INJ, Q5Min, Dosing Weight 103.009, kg, PRN Elevated BP, Start date: 11/03/18 15:28:00 CDT, Duration: 5 doses or times, Stop date: 11/04/18 0:00:00 CDT Inactive 11/03/2018 [facility] Metoprolol 1 mg, 1 mL, Route: IVP, Drug form: INJ, Q5Min, Dosing Weight 103.009, kg, PRN Other -See Comment, Start date: 11/03/18 15:28:00 CDT, Duration: 5 doses or times, Stop date: 11/04/18 0:00:00 CDTNotes: (Same as: Lopressor) Push over 2 minutes Inactive 11/03/2018 [facility] Lactated Ringers Injection IV (ANES) 1000 mL Route: IV, Total Volume: 1,000, Start date: 11/03/18 15:00:00 CDT, Stop date: 11/03/18 16:00:00 CDT Inactive 11/03/2018 [facility] Insulin Lispro 5 unit, 0.05 mL, Route: [...] days from Date No Longer Active 11/01/2018 [facility] pantoprazole 40 mg, 1 tab, Route: PO, Drug form: ECTAB, Before Breakfast, Dosing Weight 103.009, kg, Start date: 11/01/18 7:30:00 CDT, Duration: 30 day, Stop date: 11/30/18 7:30:00 CDTNotes: Tablet should not be chewed or crushed. (Same as: Protonix) No Longer Active 11/01/2018 [facility] Tums 1,500 mg, 3 tab, Route: CHEW, Drug form: CHEWTAB, ONCE, Dosing Weight 103.009, kg, Start date: 11/01/18 5:58:00 CDT, Stop date: 11/01/18 5:58:00 CDTNotes: (Same As: Tums) Calcium Carbonate 500 fp=246 mg elemental calcium Dose= mg calcium carbonate ( mg elemental calcium) Inactive 11/01/2018 [facility] neostigmine (ANES) Route: IV, Drug form: INJ, ONCE, Stop date: 10/31/18 11:34:00 CDT Inactive 10/31/2018 [facility] rocuronium (ANES) Route: IV, Drug form: INJ, ONCE, Stop date: 10/31/18 11:14:00 CDT Inactive 10/31/2018 [facility] propofol (ANES) Route: IV, Drug form: INJ, ONCE, Stop date: 10/31/18 11:14:00 CDT Inactive 10/31/2018 [facility] midazolam (ANES) Route: IV, Drug form: SOLN, ONCE, Stop date: 10/31/18 11:14:00 CDT Inactive 10/31/2018 [facility] lidocaine (ANES) Route: IV, Drug form: INJ, ONCE, Stop date: 10/31/18 11:14:00 CDT Inactive 10/31/2018 [facility] fentaNYL (ANES) Route: IV, Drug form: INJ, ONCE, Stop date: 10/31/18 11:14:00 CDT Inactive 10/31/2018 [facility] dexamethasone (ANES) Route: IV, Drug form: INJ, ONCE, Stop date: 10/31/18 11:14:00 CDT Inactive 10/31/2018 [facility] ePHEDrine (ANES) Route: IV, Drug form: INJ, ONCE, Stop date: 10/31/18 11:14:00 CDT Inactive 10/31/2018 [facility] norepinephrine (ANES) Route: IV, Drug form: INJ, ONCE, Stop date: 10/31/18 11:14:00 CDT Inactive 10/31/2018 [facility] ceFAZolin (ANES) Route: IV, Drug form: INJ, ONCE, Stop date: 10/31/18 11:08:00 CDT Inactive 10/31/2018 [facility] phenylephrine (ANES) Route: IV, Drug form: INJ, ONCE, Stop date: 10/31/18 11:08:00 CDT Inactive 10/31/2018 [facility] glycopyrrolate (ANES) Route: IV, Drug form: INJ, ONCE, Stop date: 10/31/18 11:08:00 CDT Inactive 10/31/2018 [facility] Sodium Chloride 0.9% (titrate) 250 mL 250 mL, Rate: To prime line and flush remaining blood products., Dosing Weight 103.009, kg, Route: IV, Total Volume: 250, Priority: Routine, Start Date: 10/31/18 11:03:00 CDT, Duration: 30 day, Stop date: 11/30/18 11:02:00 CDT, Replace Every: 24 hr Inactive 10/31/2018 [facility] Labetalol 10 mg, 2 mL, Route: IVP, Drug form: INJ, Q5Min, Dosing Weight 103.009, kg, PRN Elevated BP, Start date: 10/31/18 11:03:00 CDT, Duration: 5 doses or times, Stop date: Limited # of times Inactive 10/31/2018 [facility] Ondansetron 4 mg, 2 mL, Route: IVP, Drug form: INJ, ONCE, Dosing Weight 103.009, kg, PRN Nausea & Vomiting, Start date: 10/31/18 11:03:00 CDTNotes: (Same as: Zofran) MEDICATION WASTE Product Size: 4 mg Product Wasted: ___ mg Inactive 10/31/2018 [facility] Naloxone 0.4 mg, 1 mL, Route: IVP, Drug form: INJ, Q2MIN, Dosing Weight 103.009, kg, PRN Narcotic Reversal, Start date: 10/31/18 11:03:00 CDT, Duration: 8 doses or times, Stop date: Limited # of timesNotes: Same as Narcan Inactive 10/31/2018 [facility] Flumazenil 0.2 mg, 2 mL, Route: IVP, Drug form: INJ, PRN, Dosing Weight 103.009, kg, PRN Benzodiazepine Reversal, Initial dose, Start date: 10/31/18 11:03:00 CDT, Duration: 30 day, Stop date: 11/30/18 11:02:00 CDTNotes: (Same as: Romazicon) Inactive 10/31/2018 [facility] Hydromorphone 0.5 mg, 0.25 mL, Route: IVP, Drug form: INJ, Q5Min, Dosing Weight 103.009, kg, PRN Pain Score 7-10, Start date: 10/31/18 11:03:00 CDT, Duration: 4 doses or times, Stop date: Limited # of timesNotes: Same as Dilaudid Inactive 10/31/2018 [facility] Oxycodone 5 mg, 1 tab, Route: PO, Drug form: TAB, Q4H, Dosing Weight 103.009, kg, PRN Pain Score 4-6, Start date: 10/31/18 11:03:00 CDT, Duration: 30 day, Stop date: 11/30/18 11:02:00 CDTNotes: (Same as: Roxic odone) Inactive 10/31/2018 [facility] Acetaminophen 1,000 mg, 2 tab, Route: PO, Drug form: TAB, ONCE, Dosing Weight 103.009, kg, PRN Pain Score 1-3, Start date: 10/31/18 11:03:00 CDTNotes: Max acetaminophen 4000 mg/day (4 gm/day). (Same as: Tylenol Extra Strength) Inactive 10/31/2018 [facility] Lactated Ringers Injection IV (ANES) 1000 mL Route: IV, Total Volume: 1,000, Start date: 10/31/18 9:55:00 CDT, Stop date: 10/31/18 10:55:00 CDT Inactive 10/31/2018 [facility] atorvastatin 20 mg, 1 tab, Route: PO, Drug form: TAB, Bedtime, Dosing Weight 103.009, kg, Start date: 10/30/18 21:00:00 CDT, Duration: 30 day, Stop date: 11/28/18 21:00:00 CDTNotes: (Same As: Lipitor) No Longer Active 10/31/2018 [facility] Cubicin + Sodium Chloride 0.9% IV 100 [...] Wasted: ___ mg No Longer Active 10/30/2018 [facility] torsemide 20 mg, 1 tab, Route: PO, Drug form: TAB, Daily, Dosing Weight 103.009, kg, Start date: 10/30/18 9:00:00 CDT, Duration: 30 day, Stop date: 11/28/18 9:00:00 CDTNotes: (Same As: Demadex) No Longer Active 10/30/2018 [facility] Lyrica 25 mg, 1 cap, Route: PO, Drug form: CAP, Daily, Dosing Weight 103.009, kg, Start date: 10/30/18 9:00:00 CDT, Duration: 30 day, Stop date: 11/28/18 9:00:00 CDTNotes: (Same as: Lyrica) No Longer Active 10/30/2018 [facility] tamsulosin 0.4 mg, 1 cap, Route: PO, Drug form: CAP, Daily, Dosing Weight 103.009, kg, Start date: 10/30/18 9:00:00 CDT, Duration: 30 day, Stop date: 11/28/18 9:00:00 CDTNotes: (Same As: Flomax) "Do Not Crush" No Longer Active 10/30/2018 [facility] NIFEdipine 90 mg oral tablet, extended release 90 mg, 1 tab, Route: PO, Drug form: ERTAB, Daily, Dosing Weight 103.009, kg, Start date: 10/30/18 9:00:00 CDT, Duration: 30 day, Stop date: 11/28/18 9:00:00 CDTNotes: (Same as: Adalat CC,Procardia XL) "Do Not Crush" "Avoid grapefruit and grapefruit juice" No Longer Active 10/30/2018 [facility] metoprolol tartrate 50 mg, 1 tab, Route: PO, Drug form: TAB, Q12H, Dosing Weight 103.009, kg, Start date: 10/30/18 9:00:00 CDT, Duration: 30 day, Stop date: 11/28/18 21:00:00 CDTNotes: (Same as: Lopressor) No Longer Active 10/30/2018 [facility] duloxetine 60 mg, 1 cap, Route: PO, Drug form: DRC, Daily, Dosing Weight 103.009, kg, Start date: 10/30/18 9:00:00 CDT, Duration: 30 day, Stop date: 11/28/18 9:00:00 CDTNotes: (Same as: Cymbalta) (Do Not Crush) No Longer Active 10/30/2018 [facility] Allopurinol 300 mg, 1 tab, Route: PO, Drug form: TAB, Daily, Dosing Weight 103.009, kg, Start date: 10/30/18 9:00:00 CDT, Duration: 30 day, Stop date: 11/28/18 9:00:00 CDTNotes: (Same as: Zyloprim) No Longer Active 10/30/2018 [facility] Daptomycin 412.036 mg, Route: IV, Q48H, Dosing Weight 103.009, kg, Start date: 10/30/18 9:00:00 CDT, Duration: 30 day, Stop date: 11/27/18 9:00:00 CDT, ABX Indication: Bone/Joint Infection Inactive 10/30/2018 [facility] Aspirin 81 mg, 1 tab, Route: PO, Drug form: ECTAB, Daily, Dosing Weight 103.009, kg, Start date: 10/30/18 9:00:00 CDT, Duration: 30 day, Stop date: 11/28/18 9:00:00 CDTNotes: Do not crush or chew. (Same As: Ecotrin) No Longer Active 10/30/2018 [facility] Insulin Glargine 30 unit, 0.3 mL, Route: SUB-Q, Drug form: SOLN, QAM (Insulin), Dosing Weight 103.009, kg, Start date: 10/30/18 7:30:00 CDT, Duration: 30 day, Stop date: 11/28/18 7:30:00 CDT No Longer Active 10/30/2018 [facility] meropenem 500 mg, Route: IVPB, Drug form: PDR/INJ, ABXQ6H, Dosing Weight 103.009, kg, Extended infusion, infuse over 3 hours, Start date: 10/30/18 5:00:00 CDT, Stop date: 11/28/18 22:00:00 CDT, ABX Indication: Tanner ne/Joint InfectionNotes: Same as Merrem MEDICATION WASTE Product Size: 500 mg Product Wasted: ___ mg No Longer Active 10/30/2018 [facility] Acetaminophen 325 MG / Hydrocodone Bitartrate 10 MG Oral Tablet 1 tab, Route: PO, Drug Form: TAB, Dosing Weight 103.009, kg, QID, PRN Pain Score 7-10, Start date: 10/30/18 4:12:00 CDT, Duration: 30 day, Stop date: 11/29/18 4:11:00 CDTNotes: Do not exceed 4gm/day of acetaminophen. (Same as: Carrie 325/10) No Longer Active 10/30/2018 [facility] Insulin Lispro 2 unit, 0.02 mL, Route: [...] days from Date No Longer Active 10/30/2018 [facility] Glucagon 1 mg, Route: IM, Drug form: PDR/INJ, PRN, Dosing Weight 103.009, kg, PRN Blood Glucose Results, Start date: 10/30/18 3:43:00 CDT, Duration: 30 day, Stop date: 11/29/18 3:42:00 CDT No Longer Active 10/30/2018 [facility] Dextrose 50% Syringe 25 gm, 50 mL, Route: IVP, Drug Form: INJ, Dosing Weight 103.009, kg, PRN, PRN Blood Glucose Results, Start date: 10/30/18 3:43:00 CDT, Duration: 30 day, Stop date: 11/29/18 3:42:00 CDT No Longer Active 10/30/2018 [facility] Daptomycin 4 mg/kg, IV, Q24H, 0 Refill(s) No Longer Active 10/30/2018 [facility] meropenem IV, Q8H, 0 Refill(s) No Longer Active 10/30/2018 [facility] metoprolol tartrate 50 mg oral tablet 50 mg=1 tab, PO, BID, # 180 tab, 0 Refill(s) Active 10/30/2018 [facility] atorvastatin 20 mg oral tablet 20 mg=1 tab, PO, Bedtime, # 30 tab, 0 Refill(s) Active 10/30/2018 [facility] NIFEdipine 90 mg oral tablet, extended release 90 mg=1 tab, PO, Daily, .., # 90 tab, 3 Refill(s), Pharmacy: [facility] [place] Active 09/08/[facility] Acetaminophen 325 MG [...] # 84 tab, 0 Refill(s) Active 08/06/2018 [facility] lisinopril 40 mg oral tablet 40 mg=1 tab, PO, Daily, # 90 tab, 3 Refill(s) Active 08/06/2018 [facility] Vancomycin 1,000 mg, IVPB, Q24H, 0 Refill(s) Active 08/06/2018 [facility] NIFEdipine 90 mg oral tablet, extended release 90 mg=1 tab, PO, Daily, .., # 30 tab, 0 Refill(s) Active 08/06/2018 [facility] Clotrimazole 10 MG/ML Topical Cream 1 appl, TOP, BID, X 30 day, # 15 gm, 0 Refill(s) Active 08/06/2018 [facility] carvedilol 25 mg oral tablet 25 mg=1 tab, PO, BID, # 60 tab, 0 Refill(s) Active 08/06/2018 [facility] apixaban 5 mg oral tablet 5 mg=1 tab, PO, Q12H, # 60 tab, 0 Refill(s) Active 08/06/2018 [facility] allopurinol 300 mg oral tablet 300 mg=1 tab, PO, Daily, # 30 tab, 0 Refill(s) Active 08/06/2018 [facility] DULoxetine 60 mg oral delayed release capsule 60 mg=1 cap, PO, Daily, 0 Refill(s) Active 08/06/2018 [facility] Saline Flush 0.9% 10 mL, Route: IVP, Drug Form: INJ, Dosing Weight 115.2, kg, Q8H, Start date: 08/06/18 16:00:00 ASSOCIATE PROFESSOR OF PHYSICS, Duration: 30 day, Stop date: 09/05/18 8:00:00 CDTNotes: (Same as: BD Posiflush) Inactive 08/06/2018 [facility] Lidocaine Hydrochloride 10 MG/ML Injectable Solution 50 mg, 5 mL, Route: INTRADERM, Drug Form: INJ, Dosing Weight 115.2, kg, ONCALL, For PICC line insertion., Start date: 08/06/18 13:00:00 ASSOCIATE PROFESSOR OF PHYSICS, Duration: 1 day, Stop date: 08/07/18 12:59:00 CSTNotes: (Same as: Xylocaine) Inactive 08/06/2018 [facility] Saline Flush 0.9% 10 mL, Route: IVP, Drug Form: INJ, Dosing Weight 115.2, kg, PRN, PRN Line Flush, Start date: 08/06/18 12:59:00 ASSOCIATE PROFESSOR OF PHYSICS, Duration: 30 day, Stop date: 09/05/18 13:58:00 CDTNotes: (Same as: BD Posiflush) Inactive 08/06/2018 [facility] Metolazone 5 MG Oral Tablet =1 tab, PO, Daily, # 90 ea, Pharmacy: [facility] [place] Inactive 08/06/2018 [facility] Vancomycin 1,000 mg, Route: IVPB, Drug form: INJ, [id number], Dosing Weight 115.2, kg, Start date: 08/04/18 18:00:00 ASSOCIATE PROFESSOR OF PHYSICS, Duration: 20 day, Stop date: 08/24/18 6:00:00 ASSOCIATE PROFESSOR OF PHYSICS, ABX Indication: Bone/Joint InfectionNotes: TIME CRITICAL MEDICATION (Same As: Vancocin) Infusion rate 2001 mg: infuse over 2.5 hours For adult patients only: Round to nearest 250 mg per Medical Staff approval MEDICATION WASTE Product Size: 1000 mg Product Wasted: ___ mg No Longer Active 08/05/2018 [facility] NIFEdipine 60 mg oral tablet, extended release 90 mg, 1 tab, Route: PO, Drug form: ERTAB, Daily, Dosing Weight 115.2, kg, Start date: 08/04/18 9:00:00 ASSOCIATE PROFESSOR OF PHYSICS, Duration: 30 day, Stop date: 09/02/18 9:00:00 CDT, ..Notes: (Same as: Adalat CC,Procardia XL) "Do Not Crush" "Avoid grapefruit and grapefruit juice" No Longer Active 08/04/2018 [facility] Clonidine Hydrochloride 0.1 MG Oral Tablet 0.1 mg, 1 tab, Route: PO, Drug form: TAB, Daily, Dosing Weight 115.2, kg, Start date: 08/04/18 9:00:00 ASSOCIATE PROFESSOR OF PHYSICS, Stop date: 09/01/18 9:00:00 CDTNotes: (Same As: Catapres) No Longer Active 08/04/2018 [facility] Saline Flush 0.9% 10 mL, Route: IVP, Drug Form: INJ, Dosing Weight 115.2, kg, Q8H, Start date: 08/04/18 8:00:00 ASSOCIATE PROFESSOR OF PHYSICS, Duration: 30 day, Stop date: 09/03/18 0:00:00 CDTNotes: Same as: BD Posiflush Sterile No Longer Active 08/04/2018 [facility] Lidocaine Hydrochloride 10 MG/ML Injectable Solution 5 mL, Route: INTRADERM, Drug Form: INJ, Dosing Weight 115.2, kg, ONCALL, For PICC line insertion., Start date: 08/04/18 7:00:00 ASSOCIATE PROFESSOR OF PHYSICS, Duration: 1 day, Stop date: 08/05/18 6:59:00 CSTNotes: Preservative free. (Same as: Xylocaine MPF) No Longer Active 08/04/2018 [facility] Saline Flush 0.9% 10 mL, Route: IVP, Drug Form: INJ, Dosing Weight 115.2, kg, PRN, PRN Line Flush, Start date: 08/04/18 6:52:00 ASSOCIATE PROFESSOR OF PHYSICS, Duration: 30 day, Stop date: 09/03/18 7:51:00 CDTNotes: Same as: BD Posiflush Sterile No Longer Active 08/04/2018 [facility] NIFEdipine 60 mg oral tablet, extended release 60 mg, 1 tab, Route: PO, Drug form: ERTAB, Daily, Dosing Weight 115.2, kg, Start date: 08/03/18 9:00:00 ASSOCIATE PROFESSOR OF PHYSICS, Duration: 30 day, Stop date: 09/01/18 9:00:00 CDT, ..Notes: (Same as: Adalat CC, Procardia XL) Give on empty stomach. Take 1 hour before or 2 hours after meal; "Avoid grapefruit and grapefruit juice". Do not crush No Longer Active 08/03/2018 [facility] Clonidine Hydrochloride 0.1 MG Oral Tablet 0.1 mg, 1 tab, Route: PO, Drug form: TAB, Q12H, Dosing Weight 115.2, kg, Start date: 08/02/18 21:00:00 ASSOCIATE PROFESSOR OF PHYSICS, Duration: 30 day, Stop date: 09/01/18 9:00:00 CDTNotes: (Same As: Catapres) No Longer Active 08/03/2018 [facility] NIFEdipine 30 mg oral tablet, extended release 30 mg, 1 tab, Route: PO, Drug form: ERTAB, Daily, Dosing Weight 115.2, kg, Start date: 08/02/18 11:00:00 ASSOCIATE PROFESSOR OF PHYSICS, Duration: 30 day, Stop date: 09/01/18 9:00:00 CDTNotes: (Same as: Adalat CC, Procardia XL) Give on empty stomach. Take 1 hour before or 2 hours after meal; "Avoid grapefruit and grapefruit juice". Do not crush No Longer Active 08/02/2018 [facility] Eliquis 5 mg, 1 tab, Route: PO, Drug form: TAB, Q12H, Dosing Weight 115.2, kg, Start date: 08/02/18 9:00:00 ASSOCIATE PROFESSOR OF PHYSICS, Duration: 30 day, Stop date: 08/31/18 21:00:00 CDTNotes: Same as: Eliquis No Longer Active 08/02/2018 [facility] vancomycin + Sodium Chloride 0.9% IV 250 mL 1.25 gm, Route: IVPB, [id number], osteomyelitis, Start date: 08/01/18 20:00:00 ASSOCIATE PROFESSOR OF PHYSICS, Duration: 30 day, Stop date: 08/31/18 10:30:00 CDT, ABX Indication: Other (specify in Comments)Notes: TIME CRITICAL MEDICATION (Same As: Vancocin) Infusion rate 2001 mg: infuse over 2.5 hours For adult patients only: Round to nearest 250 mg per Medical Staff approval MEDICATION WASTE Product Size: 1000 mg Product Wasted: ___ mg No Longer Active 08/02/2018 [facility] Flagyl 500 mg, 100 mL, Route: IVPB, Drug form: INJ, [id number], Dosing Weight 115.2, kg, Start date: 08/01/18 16:00:00 ASSOCIATE PROFESSOR OF PHYSICS, Duration: 14 day, Stop date: 08/15/18 8:00:00 ASSOCIATE PROFESSOR OF PHYSICS, ABX Indication: Bone/Joint Infection No Longer Active 08/01/2018 [facility] cefepime 1 gm, Route: IVP, Drug form: INJ, [id number], Dosing Weight 115.2, kg, Start date: 08/01/18 16:00:00 ASSOCIATE PROFESSOR OF PHYSICS, Duration: 5 day, Stop date: 08/06/18 8:00:00 ASSOCIATE PROFESSOR OF PHYSICS, ABX Indication: Bone/Joint InfectionNotes: (Same As: Maxipime) MEDICATION WASTE Product Size: 1000 mg Product Wasted: ___ mg No Longer Active 08/01/2018 [facility] carvedilol 25 mg, 1 tab, Route: PO, Drug form: TAB, BID, Dosing Weight 118.182, kg, Start date: 07/31/18 21:00:00 ASSOCIATE PROFESSOR OF PHYSICS, Duration: 30 day, Stop date: 08/30/18 9:00:00 CSTNotes: Give with food. (Same As: Coreg) No Longer Active 08/01/2018 [facility] Clotrimazole 10 MG/ML Topical Cream 1 appl, Route: TOP, Drug Form: CRM, Dosing Weight 115.2, kg, BID, Start date: 07/30/18 17:00:00 ASSOCIATE PROFESSOR OF PHYSICS, Duration: 30 day, Stop date: 08/29/18 9:00:00 CSTNotes: For external use only. (Same As: Lotrimin AF, Mycelex) No Longer Active 07/30/2018 [facility] cefepime 1 gm, Route: IV, Drug form: INJ, [id number], Dosing Weight 115.2, kg, Start date: 07/30/18 12:00:00 ASSOCIATE PROFESSOR OF PHYSICS, Duration: 30 day, Stop date: 08/29/18 4:00:00 ASSOCIATE PROFESSOR OF PHYSICS, ABX Indication: Bone/Joint InfectionNotes: (Same As: Maxipime) MEDICATION WASTE Product Size: 1000 mg Product Wasted: ___ mg Inactive 07/30/2018 [facility] heparin Route: IVP, PRN, 4,000 unit, 4 mL, Drug form: INJ, PRN, Heparin Protocol, Start date: 07/30/18 11:48:00 ASSOCIATE PROFESSOR OF PHYSICS Stop date: 08/29/18 11:47:00 ASSOCIATE PROFESSOR OF PHYSICS, 30 day No Longer Active 07/30/2018 [facility] Lidocaine 12 mL, Route: IV, ONCE, Dosing Weight 115.2, kg, Start date: 07/30/18 9:56:00 ASSOCIATE PROFESSOR OF PHYSICS, Stop date: 07/30/18 9:56:00 ASSOCIATE PROFESSOR OF PHYSICS Inactive 07/30/2018 [facility] Midazolam 1 mg, Route: IV, ONCE, Dosing Weight 115.2, kg, Start date: 07/30/18 9:54:00 ASSOCIATE PROFESSOR OF PHYSICS, Stop date: 07/30/18 9:54:00 ASSOCIATE PROFESSOR OF PHYSICS Inactive 07/30/2018 [facility] Fentanyl 50 microgram, Route: IV, ONCE, Dosing Weight 115.2, kg, Start date: 07/30/18 9:54:00 ASSOCIATE PROFESSOR OF PHYSICS, Stop date: 07/30/18 9:54:00 ASSOCIATE PROFESSOR OF PHYSICS Inactive 07/30/2018 [facility] gabapentin 300 MG Oral Capsule 300 mg, Route: PO, Drug form: CAP, Q12H, Dosing Weight 115.2, kg, (CrCl 30 - 59 ml/min), Start date: 07/30/18 9:00:00 ASSOCIATE PROFESSOR OF PHYSICS, Duration: 30 day, Stop date: 08/28/18 21:00:00 ASSOCIATE PROFESSOR OF PHYSICS Inactive 07/30/2018 [facility] Vancomycin 1,000 mg, Route: IVPB, Drug form: INJ, [id number], Dosing Weight 115.2, kg, Start date: 07/30/18 9:00:00 ASSOCIATE PROFESSOR OF PHYSICS, Duration: 30 day, Stop date: 08/28/18 21:00:00 ASSOCIATE PROFESSOR OF PHYSICS, ABX Indication: Bone/Joint InfectionNotes: TIME CRITICAL MEDICATION (Same As: Vancocin) Infusion rate 2001 mg: infuse over 2.5 hours For adult patients only: Round to nearest 250 mg per Medical Staff approval MEDICATION WASTE Product Size: 1000 mg Product Wasted: ___ mg Inactive 07/30/2018 [facility] Acetaminophen 325 MG / Hydrocodone Bitartrate 10 MG Oral Tablet [Carrie 10/325] 1 tab, Route: PO, Drug Form: TAB, Dosing Weight 115.2, kg, Q6H, PRN Pain Score 6-10, Start date: 07/30/18 8:44:00 ASSOCIATE PROFESSOR OF PHYSICS, Duration: 30 day, Stop date: 08/29/18 8:43:00 CSTNotes: Do not exceed 4gm/day of acetaminophen. (Same as: Carrie 325/10) No Longer Active 07/30/2018 [facility] Acetaminophen 1,000 mg, 2 tab, Route: PO, Drug form: TAB, Q6H, Dosing Weight 115.2, kg, Start date: 07/30/18 6:00:00 ASSOCIATE PROFESSOR OF PHYSICS, Duration: 30 day, Stop date: 08/29/18 0:00:00 CSTNotes: Max acetaminophen 4000 mg/day (4 gm /day). (Same as: Tylenol Extra Strength) Inactive 07/30/2018 [facility] cefepime 2 gm, Route: IV, Drug form: INJ, [id number], Dosing Weight 115.2, kg, Priority: NOW, Start date: 07/30/18 3:47:00 ASSOCIATE PROFESSOR OF PHYSICS, Duration: 30 day, Stop date: 08/28/18 16:00:00 ASSOCIATE PROFESSOR OF PHYSICS, ABX Indication: Bone/Joint Infecti onNotes: (Same as: Maxipime) MEDICATION WASTE Product Size: 2000 mg Product Wasted: ___ mg Inactive 07/30/2018 [facility] Flagyl 500 mg, 100 mL, Route: IVPB, Drug form: INJ, [id number], Dosing Weight 115.2, kg, Priority: NOW, Start date: 07/30/18 3:47:00 ASSOCIATE PROFESSOR OF PHYSICS, Duration: 30 day, Stop date: 08/28/18 19:47:00 ASSOCIATE PROFESSOR OF PHYSICS, ABX Indication: Bone/Joint InfectionNotes: (Same as: Flagyl) Avoid alcohol. Inactive 07/30/2018 [facility] rosuvastatin 5 mg, 1 tab, Route: PO, Drug form: TAB, Bedtime, Dosing Weight 118.182, kg, Start date: 07/29/18 21:00:00 ASSOCIATE PROFESSOR OF PHYSICS, Duration: 30 day, Stop date: 08/27/18 21:00:00 CSTNotes: Same as Crestor No Longer Active 07/30/2018 [facility] heparin 25,000 unit [18 unit/kg/hr] + Premix Diluent Sodium Chloride 0.45% 500 mL 500 mL, Rate: 36.32 ml/hr, Infuse over: 13.8 hr, Route: IV, Dosing Weight 100.9 kg, Total Volume: 500, Start date: 07/29/18 19:00:00 ASSOCIATE PROFESSOR OF PHYSICS, Duration: 30 day, Stop date: 08/28/18 18:59:00 ASSOCIATE PROFESSOR OF PHYSICS, 2.36, m2 No Longer Active 07/30/2018 [facility] Lactated Ringers IV 1,000 mL 1,000 mL, Rate: 150 ml/hr, Infuse over: 6.7 hr, Route: IV, Dosing Weight 115.2 kg, Total Volume: 1,000, Start date: 07/29/18 19:00:00 ASSOCIATE PROFESSOR OF PHYSICS, Duration: 30 day, Stop date: 08/28/18 18:59:00 ASSOCIATE PROFESSOR OF PHYSICS, 2.52, m2 No Longer Active 07/30/2018 [facility] heparin additive 25,000 unit [18 unit/kg/hr] + Premix Diluent Dextrose 5% 500 mL 500 mL, Rate: 41.47 ml/hr, Infuse over: 12.1 hr, Route: IV, Dosing Weight 115.2 kg, Total Volume: 500 mL, Start date: 07/29/18 19:00:00 ASSOCIATE PROFESSOR OF PHYSICS, Duration: 30 day, Stop date: 08/28/18 18:59:00 ASSOCIATE PROFESSOR OF PHYSICS, 2.52, m2 Inactive 07/30/2018 [facility] Heparin 80 unit/kg Bolus (Heparin Dosing Weight) Route: IVP, PRN, 8,000 unit, 8 mL, Drug form: INJ, PRN, Heparin Protocol, Start date: 07/29/18 19:00:00 ASSOCIATE PROFESSOR OF PHYSICS Stop date: 08/28/18 18:59:00 ASSOCIATE PROFESSOR OF PHYSICS, 30 day No Longer Active 07/30/2018 [facility] Heparin 40 unit/kg Bolus (Heparin Dosing Weight) Route: IVP, PRN, 4,000 unit, 4 mL, Drug form: INJ, PRN, Heparin Protocol, Start date: 07/29/18 19:00:00 ASSOCIATE PROFESSOR OF PHYSICS Stop date: 08/28/18 18:59:00 ASSOCIATE PROFESSOR OF PHYSICS, 30 day No Longer Active 07/30/2018 [facility] Allopurinol 300 mg, 1 tab, Route: PO, Drug form: TAB, Daily, Dosing Weight 118.182, kg, Start date: 07/29/18 9:00:00 ASSOCIATE PROFESSOR OF PHYSICS, Duration: 30 day, Stop date: 08/27/18 9:00:00 CSTNotes: (Same as: Zyloprim) No Longer Active 07/29/2018 [facility] Lisinopril 40 mg, 2 tab, Route: PO, Drug form: TAB, Daily, Dosing Weight 118.182, kg, Start date: 07/29/18 9:00:00 ASSOCIATE PROFESSOR OF PHYSICS, Duration: 30 day, Stop date: 08/27/18 9:00:00 CSTNotes: (Same as: Prinivil, Zestril) No Longer Active 07/29/2018 [facility] carvedilol 25 mg, 1 tab, Route: PO, Drug form: TAB, Daily, Dosing Weight 118.182, kg, Start date: 07/29/18 9:00:00 ASSOCIATE PROFESSOR OF PHYSICS, Duration: 30 day, Stop date: 08/27/18 9:00:00 CSTNotes: Give with food. (Same As: Coreg) No Longer Active 07/29/2018 [facility] Metolazone 5 MG Oral Tablet 5 mg, 1 tab, Route: PO, Drug form: TAB, Daily, Dosing Weight 118.182, kg, Start date: 07/29/18 9:00:00 ASSOCIATE PROFESSOR OF PHYSICS, Duration: 30 day, Stop date: 08/27/18 9:00:00 CSTNotes: (Same as: Zaroxolyn) Inactive 07/29/2018 [facility] Eliquis 5 mg, 1 tab, Route: PO, Drug form: TAB, BID, Dosing Weight 118.182, kg, Start date: 07/29/18 9:00:00 ASSOCIATE PROFESSOR OF PHYSICS, Duration: 30 day, Stop date: 08/27/18 17:00:00 CSTNotes: Same as: Eliquis Inactive 07/29/2018 [facility] duloxetine 60 mg, 1 cap, Route: PO, Drug form: DRC, Daily, Dosing Weight 118.182, kg, Start date: 07/29/18 9:00:00 ASSOCIATE PROFESSOR OF PHYSICS, Duration: 30 day, Stop date: 08/27/18 9:00:00 CSTNotes: (Same as: Cymbalta) (Do Not Crush) No Longer Active 07/29/2018 [facility] torsemide 20 mg, 1 tab, Route: PO, Drug form: TAB, BID, Dosing Weight 118.182, kg, Start date: 07/29/18 9:00:00 ASSOCIATE PROFESSOR OF PHYSICS, Duration: 30 day, Stop date: 08/27/18 17:00:00 CSTNotes: (Same As: Demadex) Inactive 07/29/2018 [facility] tamsulosin 0.4 mg, 1 cap, Route: PO, Drug form: CAP, Daily, Dosing Weight 118.182, kg, Start date: 07/29/18 9:00:00 ASSOCIATE PROFESSOR OF PHYSICS, Duration: 30 day, Stop date: 08/27/18 9:00:00 CSTNotes: (Same As: Flomax) "Do Not Crush" No Longer Active 07/29/2018 [facility] Lyrica 25 mg, 1 cap, Route: PO, Drug form: CAP, Daily, Dosing Weight 118.182, kg, Start date: 07/29/18 9:00:00 ASSOCIATE PROFESSOR OF PHYSICS, Duration: 30 day, Stop date: 08/27/18 9:00:00 CSTNotes: (Same as: Lyrica) No Longer Active 07/29/2018 [facility] potassium chloride 20 mEq oral tablet, extended release 20 mEq, 1 tab, Route: PO, Drug form: ERTAB, Daily, Dosing Weight 118.182, kg, Start date: 07/29/18 9:00:00 ASSOCIATE PROFESSOR OF PHYSICS, Duration: 30 day, Stop date: 08/27/18 9:00:00 CSTNotes: (Same as: K-Dur 20) "Do Not Crush" Give with food and full glass of water For patients unable to swallow tablet, dissolve in one half glass of water. Allow about 2 minutes for the tablets to disintegrate. Stir before giving to prepare slurry and administer. Please exclude Patients with feeding tube less than 14 Swazi (Dobhoff, J-tube etc) and pediatric and patients. No Longer Active 07/29/2018 [facility] Clonidine Hydrochloride 0.1 MG Oral Tablet 0.1 mg, 1 tab, Route: PO, Drug form: TAB, TID, Dosing Weight 118.182, kg, Start date: 07/29/18 9:00:00 ASSOCIATE PROFESSOR OF PHYSICS, Duration: 30 day, Stop date: 08/27/18 17:00:00 CSTNotes: (Same As: Catapres) No Longer Active 07/29/2018 [facility] Insulin Lispro 3 unit, 0.03 mL, Route: SUB-Q, Drug form: SOLN, TID-Before Meals, Dosing Weight 118.182, kg, PRN Blood Glucose Results, Start date: 07/28/18 22:55:00 ASSOCIATE PROFESSOR OF PHYSICS, Duration: 30 day, Stop date: 08/27/18 22:54: 00 CSTNotes: (Same as: Humalog ) Roll in palms of hands gently; Do not shake `vigorously. "Single Patient Use Only " WASTE: F/P - Black; E - Municipal Trash Bin Stable for 28 days at room temperature. Expires in days from Date No Longer Active 07/29/2018 [facility] Glucagon 1 mg, Route: IM, Drug form: PDR/INJ, PRN, Dosing Weight 118.182, kg, PRN Blood Glucose Results, Start date: 07/28/18 22:55:00 ASSOCIATE PROFESSOR OF PHYSICS, Duration: 30 day, Stop date: 08/27/18 22:54:00 ASSOCIATE PROFESSOR OF PHYSICS No Longer Active 07/29/2018 [facility] Dextrose 50% Syringe 12.5 gm, 25 mL, Route: IVP, Drug Form: INJ, Dosing Weight 118.182, kg, PRN, PRN Blood Glucose Results, Start date: 07/28/18 22:55:00 ASSOCIATE PROFESSOR OF PHYSICS, Duration: 30 day, Stop date: 08/27/18 22:54:00 ASSOCIATE PROFESSOR OF PHYSICS No Longer Active 07/29/2018 [facility] tramadol hydrochloride 50 MG Oral Tablet 100 mg, 2 tab, Route: PO, Drug form: TAB, BID, Dosing Weight 118.182, kg, PRN Pain Score 1-5, Start date: 07/28/18 21:47:00 ASSOCIATE PROFESSOR OF PHYSICS, Duration: 30 day, Stop date: 08/27/18 21:46:00 CSTNotes: Not to exceed 400mg/day. (Same As: Ultram) No Longer Active 07/29/2018 [facility] Dilaudid 0.5 mg, Route: IV, ONCE, Dosing Weight 118.182, kg, Start date: 07/28/18 21:44:00 ASSOCIATE PROFESSOR OF PHYSICS, Stop date: 07/28/18 21:44:00 ASSOCIATE PROFESSOR OF PHYSICS Inactive 07/29/2018 [facility] Acetaminophen 650 mg, 2 tab, Route: PO, Drug form: TAB, Q4H, Dosing Weight 118.182, kg, PRN For Temp > 100.4 F, Start date: 07/28/18 21:35:00 ASSOCIATE PROFESSOR OF PHYSICS, Duration: 30 day, Stop date: 08/27/18 21:34:00 CSTNotes: Do not ex ceed 4 gm/day. (Same as: Tylenol) No Longer Active 07/29/2018 [facility] Dextrose 50% Syringe 12.5 gm, 25 mL, Route: IVP, Drug Form: INJ, Dosing Weight 118.182, kg, PRN, PRN Blood Glucose Results, Start date: 07/28/18 21:35:00 ASSOCIATE PROFESSOR OF PHYSICS, Duration: 30 day, Stop date: 08/27/18 21:34:00 ASSOCIATE PROFESSOR OF PHYSICS Inactive 07/29/2018 [facility] Glucagon 1 mg, Route: IM, Drug form: PDR/INJ, PRN, Dosing Weight 118.182, kg, PRN Blood Glucose Results, Start date: 07/28/18 21:35:00 ASSOCIATE PROFESSOR OF PHYSICS, Duration: 30 day, Stop date: 08/27/18 21:34:00 ASSOCIATE PROFESSOR OF PHYSICS Inactive 07/29/2018 [facility] Flagyl 500 mg, 100 mL, Route: IVPB, Drug form: INJ, ONCE, Dosing Weight 118.182, kg, Start date: 07/28/18 20:12:00 ASSOCIATE PROFESSOR OF PHYSICS, Stop date: 07/28/18 20:12:00 ASSOCIATE PROFESSOR OF PHYSICS, ABX Indication: Bacteremia Inactive 07/29/2018 [facility] cefepime 1 gm, Route: IVP, Drug form: INJ, ONCE, Dosing Weight 118.182, kg, Start date: 07/28/18 20:12:00 ASSOCIATE PROFESSOR OF PHYSICS, Stop date: 07/28/18 20:12:00 ASSOCIATE PROFESSOR OF PHYSICS, ABX Indication: BacteremiaNotes: (Same As: Maxipime) MEDICAT ION WASTE Product Size: 1000 mg Product Wasted: ___ mg Inactive 07/29/2018 [facility] Vancomycin 1,500 mg, 250 mL, Route: IVPB, Drug form: INJ, ONCE, Dosing Weight 118.182, kg, Start date: 07/28/18 19:56:00 ASSOCIATE PROFESSOR OF PHYSICS, Stop date: 07/28/18 19:56:00 ASSOCIATE PROFESSOR OF PHYSICS, ABX Indication: BacteremiaNotes: TIME CRITICAL MEDICATION Same as: Vancocin-NS (premixed) Infusion rate 2001 mg: infuse over 2.5 hours Inactive 07/29/2018 [facility] Isolyte S PH-7.4 (Bolus) IV 500 mL, Route: IV, Drug form: SOLN, ONCE, Dosing Weight 118.182 kg, Start date: 07/28/18 19:53:00 ASSOCIATE PROFESSOR OF PHYSICS, Stop date: 07/28/18 19:53:00 CSTNotes: (Same as: Isolyte S PH7.4) Inactive 07/29/2018 [facility] Cephalexin 500 mg, 1 cap, Route: PO, Drug form: CAP, ONCE, Dosing Weight 118.182, kg, Priority: STAT, Start date: 07/28/18 19:34:00 ASSOCIATE PROFESSOR OF PHYSICS, Stop date: 07/28/18 19:34:00 CSTNotes: Take on empty stomach. (Same As: Keflex) Inactive 07/29/2018 [facility] Acetaminophen 325 MG / Hydrocodone Bitartrate 10 [...] # 90 tab, 3 Refill(s), Pharmacy: [facility] No Longer Active 06/13/2018 [facility] [...] TO ONE(1) TABLET(S) BY MOUTH DAILY., Pharmacy: [facility] No Longer Active 02/13/2018 [facility] [...] TABLET(S) BY MOUTH TWICE A DAY., Pharmacy: [facility] Active 12/04/2017 [facility] pregabalin 25 MG Oral Capsule [Lyrica] 25 mg=1 cap, PO, Daily, # 30 cap, 5 Refill(s) Active 07/05/2017 [facility] pregabalin 25 MG Oral Capsule [Lyrica] 25 mg=1 cap, PO, Daily, # 30 cap, 0 Refill(s) Active 06/10/2017 [facility] apixaban 5 MG Oral Tablet [Eliquis] 5 mg=1 tab, PO, BID, # 60 tab, 5 Refill(s), Pharmacy: [facility] Active 06/03/2017 [facility] Acetaminophen 325 [...] DAY., # 90 ea, 4 Refill(s), Pharmacy: [facility] Active 05/13/2017 [facility] Clonidine Hydrochloride 0.1 MG Oral Tablet See Instructions, # 90 ea, Refill(s) 4, TAKE ONE (1) TABLET(S) BY MOUTH THREE TIMES A DAY., Pharmacy: [facility] Active 05/06/2017 Medical [facility] 1.5 ML Insulin Glargine 300 UNT/ML Prefilled Syringe [Toujeo] 25 unit, Route: SUB-Q, Drug form: SOLN, Daily, Dosing Weight 118.182, kg, Start date: 04/12/17 9:00:00 CDT, Duration: 30 day, Stop date: 05/11/17 9:00:00 ASSOCIATE PROFESSOR OF PHYSICS No Longer Active 04/12/2017 [facility] apixaban 5 mg oral tablet 10 mg=2 tab, PO, Q12H, # 28 tab, 0 Refill(s), Pharmacy: [facility] Active 04/11/2017 [facility] 1.5 ML Insulin Glargine 300 UNT/ML Prefilled Syringe [Toujeo] 40 unit, SUB-Q, Daily, # 4 mL, 0 Refill(s), Pharmacy: [facility] Active 04/11/2017 [facility] Hytrin 5 mg, 1 cap, Route: PO, Drug form: CAP, Daily, Start date: 04/11/17 9:00:00 CDT, Duration: 30 day, Stop date: 05/10/17 9:00:00 CSTNotes: (Same As: Hytrin) Inactive 04/11/2017 [facility] Amlodipine 5 mg, 1 tab, Route: PO, Drug form: TAB, Daily, Dosing Weight 118.182, kg, Start date: 04/11/17 9:00:00 CDT, Duration: 30 day, Stop date: 05/10/17 9:00:00 CSTNotes: (Same as: Norvasc) Inactive 04/11/2017 [facility] Amiodarone 400 mg, 2 tab, Route: PO, Drug form: TAB, BID, Dosing Weight 118.182, kg, Start date: 04/11/17 9:00:00 CDT, Duration: 30 day, Stop date: 05/10/17 17:00:00 CSTNotes: (Same as: Cordarone) Inactive 04/11/2017 [facility] Streptococcus pneumoniae serotype 1 capsular antigen diphtheria [id number] protein conjugate vaccine / Streptococcus pneumoniae serotype 14 capsular antigen diphtheria [id number] protein conjugate vaccine / Streptococcus pneumoniae serotype 18C capsular antigen d 0.5 mL, Route: IM, Drug Form: INJ, Daily, Start date: 04/11/17 9:00:00 CDT, Duration: 1 doses or times, Stop date: 04/11/17 9:00:00 CDTNotes: Shake well prior to use (Same as: Prevnar 13) Inactive 04/11/2017 [facility] Docusate 100 mg, 1 cap, Route: PO, Drug form: CAP, BID, Dosing Weight 118.182, kg, Start date: 04/11/17 9:00:00 CDT, Duration: 30 day, Stop date: 05/10/17 17:00:00 CSTNotes: (Same as: Colace) (Do Not Crush) Inactive 04/11/2017 [facility] Cholecalciferol 2000 UNT Oral Tablet 2,000 IntlUnit, 1 tab, Route: PO, Drug form: TAB, Daily, Dosing Weight 118.182, kg, Start date: 04/11/17 9:00:00 CDT, Duration: 30 day, Stop date: 05/10/17 9:00:00 CSTNotes: (Same as: Vitamin D3) Inactive 04/11/2017 [facility] Vitamin B 12 2,000 microgram, 2 tab, Route: PO, Drug form: TAB, Daily, Dosing Weight 118.182, kg, Start date: 04/11/17 9:00:00 CDT, Duration: 30 day, Stop date: 05/10/17 9:00:00 CSTNotes: (Same As: Vitamin B-12) Inactive 04/11/2017 [facility] Aspirin 325 MG Enteric Coated Tablet 325 mg, 1 tab, Route: PO, Drug form: ECTAB, Daily, Dosing Weight 118.182, kg, Start date: 04/11/17 9:00:00 CDT, Duration: 30 day, Stop date: 05/10/17 9:00:00 CSTNotes: (Do Not Crush) Do not crush or chew. Inactive 04/11/2017 [facility] Doxazosin 4 mg, Route: PO, Drug form: TAB, Daily, Dosing Weight 118.182, kg, Start date: 04/11/17 9:00:00 CDT, Duration: 30 day, Stop date: 05/10/17 9:00:00 ASSOCIATE PROFESSOR OF PHYSICS No Longer Active 04/11/2017 [facility] duloxetine 60 mg, 1 cap, Route: PO, Drug form: DRC, Daily, Dosing Weight 118.182, kg, Start date: 04/11/17 9:00:00 CDT, Duration: 30 day, Stop date: 05/10/17 9:00:00 CSTNotes: (Same as: Cymbalta) (Do Not Crush) Inactive 04/11/2017 [facility] 1.5 ML Insulin Glargine 300 UNT/ML Prefilled Syringe [Toujeo] 64 unit, 0.64 mL, Route: SUB-Q, Drug form: SOLN, Daily, Dosing Weight 118.182, kg, Start date: 04/11/17 9:00:00 CDT, Duration: 30 day, Stop date: 05/10/17 9:00:00 CSTNotes: Same as: Lantus) Do not hold insulin without contacting prescriber WASTE: F/P - Black; E - Municipal Trash Bin Inactive 04/11/2017 [facility] Metolazone 5 MG Oral Tablet 5 mg, 1 tab, Route: PO, Drug form: TAB, Daily, Dosing Weight 118.182, kg, Start date: 04/11/17 9:00:00 CDT, Duration: 30 day, Stop date: 05/10/17 9:00:00 CSTNotes: (Same as: Zaroxolyn) Inactive 04/11/2017 [facility] Lyrica 25 mg, 1 cap, Route: PO, Drug form: CAP, Daily, Dosing Weight 118.182, kg, Start date: 04/11/17 9:00:00 CDT, Duration: 30 day, Stop date: 05/10/17 9:00:00 CSTNotes: (Same as: Lyrica) Inactive 04/11/2017 [facility] tamsulosin 0.4 mg, 1 cap, Route: PO, Drug form: CAP, Daily, Dosing Weight 118.182, kg, Start date: 04/11/17 9:00:00 CDT, Duration: 30 day, Stop date: 05/10/17 9:00:00 CSTNotes: (Same As: Flomax) "Do Not Crush" Inactive 04/11/2017 [facility] Humalog 15 unit, 0.15 mL, Route: SUB-Q, [...] Expires in days from Date Inactive 04/11/2017 [facility] Insulin, Aspart, Human 15 unit, Route: SUB-Q, Drug form: SOLN, TID-Before Meals, Dosing Weight 118.182, kg, Start date: 04/11/17 7:30:00 CDT, Duration: 30 day, Stop date: 05/10/17 16:30:00 ASSOCIATE PROFESSOR OF PHYSICS No Longer Active 04/11/2017 [facility] Insulin Lispro 5 unit, 0.05 mL, Route: [...] Expires in days from Date Inactive 04/11/2017 [facility] Glucagon 1 mg, Route: IM, Drug form: PDR/INJ, PRN, Dosing Weight 118.182, kg, PRN Blood Glucose Results, Start date: 04/11/17 5:46:00 CDT, Duration: 30 day, Stop date: 05/11/17 4:45:00 ASSOCIATE PROFESSOR OF PHYSICS Inactive 04/11/2017 [facility] Dextrose 50% Syringe 25 gm, 50 mL, Route: IVP, Drug Form: INJ, Dosing Weight 118.182, kg, PRN, PRN Blood Glucose Results, Start date: 04/11/17 5:46:00 CDT, Duration: 30 day, Stop date: 05/11/17 4:45:00 ASSOCIATE PROFESSOR OF PHYSICS Inactive 04/11/2017 [facility] allopurinol 300 mg oral tablet 300 mg=1 tab, PO, Daily, # 30 tab, 0 Refill(s) Active 04/11/2017 [facility] Metolazone 5 MG Oral Tablet 5 mg=1 tab, PO, Daily, # 30 tab, 0 Refill(s) Active 04/11/2017 [facility] torsemide 20 mg oral tablet 20 mg=1 tab, PO, BID, 0 Refill(s) Active 04/11/2017 [facility] carvedilol 25 MG Oral Tablet [Coreg] 25 mg=1 tab, PO, Daily, 0 Refill(s) Active 04/11/2017 [facility] Clonidine Hydrochloride 0.1 MG Oral Tablet 0.1 mg=1 tab, PO, TID, 0 Refill(s) Active 04/11/2017 [facility] Potassium Chloride 20 mEq, Daily, 0 Refill(s) Active 04/11/2017 [facility] Humalog SUB-Q, 0 Refill(s) Inactive 04/11/2017 [facility] 1.5 ML Insulin Glargine 300 UNT/ML Prefilled Syringe [Toujeo] 80 unit, SUB-Q, Daily, 0 Refill(s) Inactive 04/11/2017 [facility] metoprolol tartrate 50 mg, 1 tab, Route: PO, Drug form: TAB, Q6H, Dosing Weight 118.182, kg, Start date: 04/10/17 22:30:00 CDT, Duration: 30 day, Stop date: 05/10/17 22:30:00 CSTNotes: (Same as: Lopressor) No Longer Active 04/11/2017 [facility] Eliquis 10 mg, 2 tab, Route: PO, Drug form: TAB, Q12H, Dosing Weight 118.182, kg, Start date: 04/10/17 21:00:00 CDT, Duration: 30 day, Stop date: 05/10/17 9:00:00 CSTNotes: Same as: Eliquis No Longer Active 04/11/2017 [facility] Ondansetron 4 mg, Route: IVP, Q6H, Dosing Weight 118.182, kg, PRN Nausea & Vomiting, Start date: 04/10/17 20:08:00 CDT, Duration: 30 day, Stop date: 05/10/17 20:07:00 ASSOCIATE PROFESSOR OF PHYSICS Inactive 04/11/2017 [facility] Acetaminophen 325 MG / Hydrocodone Bitartrate 5 MG Oral Tablet 1 tab, Route: PO, Drug Form: TAB, Dosing Weight 118.182, kg, Q4H, PRN Pain Score 4-6, Start date: 04/10/17 20:08:00 CDT, Duration: 30 day, Stop date: 05/10/17 20:07:00 CSTNotes: (Same as: Carrie 325/5) Do not exceed 4gm/day of acetaminophen. No Longer Active 04/11/2017 [facility] Morphine 4 mg, 1 mL, Route: IVP, Drug form: SOLN, ONCE, Dosing Weight 118.182, kg, Priority: STAT, Start date: 04/10/17 19:49:00 CDT, Stop date: 04/10/17 19:49:00 CDTNotes: (Same as:MORPhine Sulfate) Inactive 04/11/2017 [facility] vancomycin 750 mg/150 mL-NaCl 0.9% intravenous solution 750 mg, IV, Q12H, infused over 60 minutes, aim level 15-19, X 28 day, # 56 ea, 0 Refill(s), other Active 01/31/2017 [facility] pantoprazole 40 mg oral enteric coated tablet 40 mg=1 tab, PO, Before Breakfast, 0 Refill(s) Active 01/31/2017 [facility] metoprolol tartrate 50 mg oral tablet 50 mg=1 tab, PO, Q6H, 0 Refill(s) Active 01/31/2017 [facility] Insulin, Aspart, Human 15 unit, SUB-Q, TID-Before Meals, 0 Refill(s) Active 01/31/2017 [facility] DULoxetine 60 mg oral delayed release capsule 60 mg=1 cap, PO, Daily, 0 Refill(s) Active 01/31/2017 [facility] doxazosin 2 mg oral tablet 4 mg=2 tab, PO, Daily, 0 Refill(s) Active 01/31/2017 [facility] amLODIPine 5 mg oral tablet 5 mg=1 tab, PO, Daily, 0 Refill(s) Active 01/31/2017 [facility] AMIODarone 200 mg oral tablet 400 mg=2 tab, PO, BID, 0 Refill(s) Active 01/31/2017 [facility] cyanocobalamin 1000 mcg sublingual tablet 2,000 microgram=2 tab, PO, Daily, 0 Refill(s) Active 01/31/2017 [facility] cholecalciferol 2000 intl units oral capsule 2,000 IntlUnit=1 cap, PO, Daily, 0 Refill(s) Active 01/31/2017 [facility] acetaminophen 500 mg oral tablet 1,000 mg=2 tab, PO, Q6H, 0 Refill(s) Active 01/31/2017 [facility] Aspirin 325 MG Enteric Coated Tablet 325 mg=1 tab, PO, Daily, 0 Refill(s) Active 01/31/2017 [facility] tramadol hydrochloride 50 MG Oral Tablet 50 mg=1 tab, PO, Q6H, PRN Pain Score 1-5, 0 Refill(s) Active 01/31/2017 [facility] tamsulosin 0.4 mg oral capsule 0.4 mg=1 cap, PO, Daily, 0 Refill(s) Active 01/31/2017 [facility] rosuvastatin 10 mg oral tablet 20 mg=2 tab, PO, Bedtime, 0 Refill(s) Active 01/31/2017 [facility] Insulin Glargine 100 UNT/ML Injectable Solution [Lantus] 40 unit, SUB-Q, Daily, 0 Refill(s) Active 01/31/2017 [facility] Saline Flush 0.9% 10 mL, Route: IVP, Drug Form: INJ, Dosing Weight 125, kg, Q8H, Start date: 01/30/17 16:00:00 CDT, Duration: 30 day, Stop date: 03/01/17 8:00:00 CDTNotes: (Same as: BD Posiflush) No Longer Active 01/30/2017 [facility] Acetaminophen 325 MG / Hydrocodone Bitartrate 5 MG Oral Tablet 1 tab, Route: PO, Drug Form: TAB, Dosing Weight 125, kg, Q6H, PRN Pain Score 1-3, Start date: 01/30/17 14:37:00 CDT, Duration: 30 day, Stop date: 03/01/17 14:36:00 CDT Inactive 01/30/2017 [facility] Lidocaine Hydrochloride 10 MG/ML Injectable Solution 5 mL, Route: INTRADERM, Dosing Weight 125, kg, ONCALL, Start date: 01/30/17 9:00:00 CDT, Duration: 30 day, Stop date: 03/01/17 8:59:00 CDT Inactive 01/30/2017 [facility] Amlodipine 5 mg, 1 tab, Route: PO, Drug form: TAB, Daily, Dosing Weight 125, kg, Start date: 01/30/17 9:00:00 CDT, Duration: 30 day, Stop date: 02/28/17 9:00:00 CDTNotes: (Same as: Norvasc) No Longer Active 01/30/2017 [facility] Saline Flush 0.9% 10 mL, Route: IVP, Drug Form: INJ, Dosing Weight 125, kg, PRN, PRN Line Flush, Start date: 01/30/17 8:32:00 CDT, Duration: 30 day, Stop date: 03/01/17 8:31:00 CDTNotes: (Same as: BD Posiflush) No Longer Active 01/30/2017 [facility] Amlodipine 5 mg, 1 tab, Route: PO, Drug form: TAB, ONCE, Dosing Weight 125, kg, Start date: 01/29/17 22:45:00 CDT, Stop date: 01/29/17 22:45:00 CDTNotes: (Same as: Norvasc) Inactive 01/30/2017 [facility] heparin additive 25,000 unit [14 unit/kg/hr] + Premix Diluent Dextrose 5% 500 mL 500 mL, Rate: 29.36 ml/hr, Infuse over: 17 hr, Route: IV, Dosing Weight 104.84 kg, Total Volume: 500 mL, Start date: 01/28/17 14:08:00 CDT, Duration: 30 day, Stop date: 02/27/17 14:07:00 CDT No Longer Active 01/28/2017 [facility] heparin additive 25,000 unit [14 unit/kg/hr] + Premix Diluent Dextrose 5% 500 mL 500 mL, Rate: 35 ml/hr, Infuse over: 14.3 hr, Route: IV, Dosing Weight 125 kg, Total Volume: 500 mL, Start date: 01/28/17 14:03:00 CDT, Duration: 30 day, Stop date: 02/27/17 14:02:00 CDT Inactive 01/28/2017 [facility] heparin additive 25,000 unit [14 unit/kg/hr] + Premix Diluent Dextrose 5% 500 mL 500 mL, Rate: 35 ml/hr, Infuse over: 14.3 hr, Route: IV, Dosing Weight 125 kg, Total Volume: 500 mL, Start date: 01/28/17 13:46:00 CDT, Duration: 30 day, Stop date: 02/27/17 13:45:00 CDT Inactive 01/28/2017 [facility] Amiodarone 400 mg, 2 tab, Route: PO, Drug form: TAB, BID, Dosing Weight 125, kg, Start date: 01/28/17 9:00:00 CDT, Duration: 12 day, Stop date: 02/08/17 17:00:00 CDTNotes: (Same as: Cordarone) No Longer Active 01/28/2017 [facility] metoprolol tartrate 50 mg, 1 tab, Route: PO, Drug form: TAB, Q6H, Dosing Weight 125, kg, Start date: 01/27/17 0:00:00 CDT, Duration: 30 day, Stop date: 02/25/17 18:00:00 CDTNotes: (Same as: Lopressor) No Longer Active 01/27/2017 [facility] NIFEdipine 90 mg oral tablet, extended release 90 mg, 1 tab, Route: PO, Drug form: ERTAB, ONCE, Dosing Weight 125, kg, Start date: 01/26/17 21:00:00 CDT, Stop date: 01/26/17 21:00:00 CDTNotes: (Same as: Adalat CC,Procardia XL) "Do Not Crush" "Avoid grapefruit and grapefruit juice" Inactive 01/27/2017 [facility] AMIODarone INJ 900 mg + D5W 500 [...] Wasted: ___ mg No Longer Active 01/27/2017 [facility] Amiodarone 150 mg, 3 mL, Route: IVPB, ONCE, Dosing Weight 125, kg, Priority: STAT, Start date: 01/26/17 20:14:00 CDT, Stop date: 01/26/17 20:14:00 CDTNotes: Central administration only for concentrations > 2 mg/ml. "Recommendation: Use an in-line filter during administration for continuous infusions to reduce the incidence of phlebitis" (Same as Codarone) MEDICATION WASTE Product Size: 150 mg Product Wasted: ___ mg Inactive 01/27/2017 [facility] NS (Bolus) IV 500 mL, 500 ml/hr, Infuse Over: 1 hr, Route: IV, 500, Drug form: INJ, ONCE, Priority: STAT, Dosing Weight 125 kg, Start date: 01/26/17 20:11:00 CDT, Duration: 1 doses or times, Stop date: 01/26/17 20 :11:00 CDT Inactive 01/27/2017 [facility] metoprolol tartrate 50 mg, 1 tab, Route: PO, Drug form: TAB, Q6H, Dosing Weight 125, kg, Start date: 01/26/17 18:45:00 CDT, Stop date: 02/25/17 18:00:00 CDTNotes: (Same as: Lopressor) No Longer Active 01/26/2017 [facility] Diltiazem 125 mg, 25 mL, Rate: Titrate, Start Dose: 15 mg/hr, Titration: 5 mg/hr every 30 min, Goal(s): Maintain HR Notes: (Same as: Cardizem) Inactive 01/26/2017 [facility] Insulin Glargine 100 UNT/ML Injectable Solution [Lantus] 40 unit, 0.4 mL, Route: SUB-Q, Drug form: SOLN, Daily, Dosing Weight 125, kg, Start date: 01/26/17 9:00:00 CDT, Duration: 30 day, Stop date: 02/24/17 9:00:00 CDTNotes: (Same as: Lantus) Do not hold insulin without contacting prescriber WASTE: F/P - Black; E - Municipal Trash Bin "single patient use only" No Longer Active 01/26/2017 [facility] vancomycin + sodium chloride 0.9% INJ 150 mL 750 mg, Route: IVPB, [id number], Start date: 01/26/17 8:00:00 CDT, Duration: 30 day, Stop date: 02/24/17 21:00:00 CDT, ABX Indication: BacteremiaNotes: TIME CRITICAL MEDICATION (Same As: Vancocin) Infusion rate 2001 mg: infuse over 2.5 hours MEDICATION WASTE Product Size: 1000 mg Product Wasted: ___ mg No Longer Active 01/26/2017 [facility] Cardura 4 mg, 2 tab, Route: PO, Drug form: TAB, Daily, Dosing Weight 125, kg, Priority: NOW, Start date: 01/25/17 9:12:00 CDT, Duration: 30 day, Stop date: 02/24/17 9:00:00 CDTNotes: (Same as: Jason) No Longer Active 01/25/2017 [facility] Doxazosin 4 mg, 1 tab, Route: PO, Drug form: TAB, Daily, Dosing Weight 125, kg, Start date: 01/25/17 9:00:00 CDT, Duration: 30 day, Stop date: 02/23/17 9:00:00 CDTNotes: (Same as: Jason) Inactive 01/25/2017 [facility] Doxazosin 4 mg, 1 tab, Route: PO, Drug form: TAB, ONCE, Dosing Weight 125, kg, Start date: 01/25/17 1:17:00 CDT, Stop date: 01/25/17 1:17:00 CDTNotes: (Same as: Jason) Inactive 01/25/2017 [facility] Diltiazem 90 mg, 3 tab, Route: PO, Drug form: TAB, Q8H, Dosing Weight 125, kg, Priority: STAT, Start date: 01/24/17 2:36:00 CDT, Stop date: 02/23/17 0:00:00 CDTNotes: (Same as: Cardizem) Before meals No Longer Active 01/24/2017 [facility] magnesium citrate 58.2 MG/ML Oral Solution 300 ml, Route: PO, Drug Form: LIQ, Dosing Weight 125, kg, ONCE, Start date: 01/22/17 19:56:00 CDT, Stop date: 01/22/17 19:56:00 CDTNotes: (Same as: Citrate of Magnesia) Concentration: 1.745 gm / 30 mL No Longer Active 01/23/2017 [facility] diltiazem 12 hour extended release 60 mg, 1 cap, Route: PO, Drug form: ERCAP, Q12H, Dosing Weight 125, kg, Start date: 01/22/17 18:35:00 CDT, Duration: 30 day, Stop date: 02/21/17 9:00:00 CDTNotes: (Same as: Cardizem SR) Before meals. DO NOT CRUSH. Give twice daily. No Longer Active 01/22/2017 [facility] Lopressor 100 mg, 2 tab, Route: PO, Drug form: TAB, Q12H, Dosing Weight 125, kg, Start date: 01/22/17 9:58:00 CDT, Duration: 30 day, Stop date: 02/21/17 9:00:00 CDTNotes: (Same as: Lopressor) No Longer Active 01/22/2017 [facility] metoprolol tartrate 100 mg, 1 tab, Route: PO, Drug form: TAB, Q12H, Dosing Weight 125, kg, Start date: 01/22/17 9:00:00 CDT, Duration: 30 day, Stop date: 02/20/17 21:00:00 CDTNotes: (Same as: Lopressor) Inactive 01/22/2017 [facility] Metoprolol 5 mg, 5 mL, Route: IV, Drug form: INJ, ONCE, Dosing Weight 125, kg, Start date: 01/22/17 7:21:00 CDT, Stop date: 01/22/17 7:21:00 CDTNotes: (Same as: Lopressor) Push over 2 minutes Inactive 01/22/2017 [facility] Zofran 4 mg, 2 mL, Route: IVP, Drug form: INJ, Q8H, Dosing Weight 125, kg, PRN Nausea, Start date: 01/22/17 5:24:00 CDT, Duration: 30 day, Stop date: 02/21/17 5:23:00 CDTNotes: (Same as: Zofran) MEDICATION WASTE Product Size: 4 mg Product Wasted: ___ mg No Longer Active 01/22/2017 [facility] Metoprolol 5 mg, 5 mL, Route: IVP, Drug form: INJ, Q8H, Dosing Weight 125, kg, PRN Tachycardia, Start date: 01/22/17 3:26:00 CDT, Duration: 30 day, Stop date: 02/21/17 3:25:00 CDT, HR>110/minNotes: (Same as: Lo pressor) Push over 2 minutes Inactive 01/22/2017 [facility] pantoprazole 80 mg + sodium chloride 0.9% INJ 100 mL 100 mL, Rate: 10 ml/hr, Infuse over: 10 hr, Route: IVPB, Dosing Weight 125 kg, Total Volume: 100, Infuse at 8 mg / hr for 72 hours for GI bleeding, Start date: 01/22/17 3:04:00 CDT, Stop date: 01/25/17 3:03:00 CDT No Longer Active 01/22/2017 [facility] carvedilol 25 mg, 1 tab, Route: PO, Drug form: TAB, BID, Dosing Weight 125, kg, Start date: 01/22/17 0:06:00 CDT, Duration: 30 day, Stop date: 02/20/17 17:00:00 CDTNotes: Give with food. (Same As: Coreg) Inactive 01/22/2017 [facility] Amlodipine 5 mg, 1 tab, Route: PO, Drug form: TAB, Daily, Dosing Weight 125, kg, Start date: 01/21/17 17:33:00 CDT, Duration: 30 day, Stop date: 02/20/17 9:00:00 CDTNotes: (Same as: Norvasc) No Longer Active 01/21/2017 [facility] magnesium citrate 58.2 MG/ML Oral Solution 300 ml, Route: PO, Drug Form: LIQ, Dosing Weight 125, kg, ONCE, Start date: 01/21/17 17:33:00 CDT, Stop date: 01/21/17 17:33:00 CDTNotes: (Same as: Citrate of Magnesia) Concentration: 1.745 gm / 30 mL Inactive 01/21/2017 [facility] Vitamin B12 2,000 microgram, 2 tab, Route: PO, Drug form: TAB, Daily, Dosing Weight 125, kg, Start date: 01/21/17 9:00:00 CDT, Duration: 30 day, Stop date: 02/19/17 9:00:00 CDTNotes: (Same As: Vitamin B-12) No Longer Active 01/21/2017 [facility] metoprolol tartrate 25 mg, Route: PO, Drug form: TAB, Q12H, Dosing Weight 125, kg, Start date: 01/21/17 9:00:00 CDT, Duration: 30 day, Stop date: 02/19/17 21:00:00 CDT Inactive 01/21/2017 [facility] Vancomycin 1,000 mg, Route: IVPB, Drug form: INJ, [id number], Dosing Weight 125, kg, Start date: 01/21/17 9:00:00 CDT, Duration: 14 day, Stop date: 02/03/17 20:00:00 CDT, ABX Indication: BacteremiaNotes: TIME CRITICAL MEDICATION (Same As: Vancocin) Infusion rate 2001 mg: infuse over 2.5 hours MEDICATION WASTE Product Size: 1000 mg Product Wasted: ___ mg No Longer Active 01/21/2017 [facility] pantoprazole 40 mg, 1 tab, Route: PO, Drug form: ECTAB, Before Breakfast, Dosing Weight 125, kg, Start date: 01/21/17 7:30:00 CDT, Duration: 30 day, Stop date: 02/19/17 7:30:00 CDTNotes: Tablet should not be chewed or crushed. (Same as: Protonix) No Longer Active 01/21/2017 [facility] Tylenol 1,000 mg, 2 tab, Route: PO, Drug form: TAB, Q6H, Dosing Weight 125, kg, Start date: 01/20/17 12:00:00 CDT, Duration: 30 day, Stop date: 02/19/17 6:00:00 CDTNotes: Max acetaminophen 4000 mg/day (4 gm/day). (Same as: Tylenol Extra Strength) No Longer Active 01/20/2017 [facility] Vitamin D3 2,000 IntlUnit, 1 cap, Route: PO, Drug form: CAP, Daily, Dosing Weight 125, kg, Priority: NOW, Start date: 01/20/17 9:56:00 CDT, Duration: 30 day, Stop date: 02/19/17 9:00:00 CDTNotes: Same as: Vitamin D3 No Longer Active 01/20/2017 [facility] insulin aspart 15 unit, 0.15 mL, Route: [...] days from Date No Longer Active 01/20/2017 [facility] duloxetine 60 mg, 1 cap, Route: PO, Drug form: DRC, Daily, Dosing Weight 125, kg, Start date: 01/20/17 9:00:00 CDT, Duration: 30 day, Stop date: 02/18/17 9:00:00 CDTNotes: (Same as: Cymbalta) (Do Not Crush) No Longer Active 01/20/2017 [facility] Vitamin B 12 2,000 microgram, 2 tab, Route: PO, Drug form: TAB, Daily, Dosing Weight 125, kg, Start date: 01/20/17 9:00:00 CDT, Duration: 30 day, Stop date: 02/18/17 9:00:00 CDTNotes: (Same As: Vitamin B-12) Inactive 01/20/2017 [facility] Insulin Glargine 100 UNT/ML Injectable Solution [Lantus] 40 unit, 0.4 mL, Route: SUB-Q, Drug form: SOLN, Q12H, Dosing Weight 125, kg, Start date: 01/20/17 9:00:00 CDT, Stop date: 02/18/17 21:00:00 CDTNotes: (Same as: Lantus) Do not hold insulin without contacting prescriber WASTE: F/P - Black; E - Municipal Trash Bin "single patient use only" No Longer Active 01/20/2017 [facility] Vitamin D3 2000 intl units oral tablet 2,000 IntlUnit, 1 tab, Route: PO, Drug form: TAB, Daily, Dosing Weight 125, kg, Start date: 01/20/17 9:00:00 CDT, Duration: 30 day, Stop date: 02/18/17 9:00:00 CDTNotes: (Same as: Vitamin D3) Inactive 01/20/2017 [facility] tamsulosin 0.4 mg, 1 cap, Route: PO, Drug form: CAP, Daily, Dosing Weight 125, kg, Start date: 01/20/17 9:00:00 CDT, Duration: 30 day, Stop date: 02/18/17 9:00:00 CDTNotes: (Same As: Flomax) "Do Not Crush" No Longer Active 01/20/2017 [facility] Lyrica 75 mg, 1 cap, Route: PO, Drug form: CAP, BID, Dosing Weight 125, kg, Start date: 01/20/17 9:00:00 CDT, Duration: 30 day, Stop date: 02/18/17 17:00:00 CDTNotes: (Same as: Lyrica) No Longer Active 01/20/2017 [facility] Aspirin 325 MG Enteric Coated Tablet 325 mg, 1 tab, Route: PO, Drug form: ECTAB, Daily, Dosing Weight 125, kg, Start date: 01/20/17 9:00:00 CDT, Duration: 30 day, Stop date: 02/18/17 9:00:00 CDTNotes: (Do Not Crush) Do not crush or chew. No Longer Active 01/20/2017 [facility] carvedilol 25 mg, 1 tab, Route: PO, Drug form: TAB, Daily, Dosing Weight 125, kg, Start date: 01/20/17 9:00:00 CDT, Duration: 30 day, Stop date: 02/18/17 9:00:00 CDTNotes: Give with food. (Same As: Coreg) No Longer Active 01/20/2017 [facility] heparin 5,000 unit, 1 mL, Route: SUB-Q, Drug form: INJ, Q8H, Dosing Weight 125, kg, Start date: 01/20/17 8:00:00 CDT, Stop date: 02/19/17 0:00:00 CDTNotes: porcine heparin No Longer Active 01/20/2017 [facility] Insulin Glargine 100 UNT/ML Injectable Solution [Lantus] 80 unit, 0.8 mL, Route: SUB-Q, Drug form: PEYTON MILLER (Insulin), Dosing Weight 125, kg, Start date: 01/20/17 7:30:00 CDT, Duration: 30 day, Stop date: 02/18/17 7:30:00 CDTNotes: (Same as: Lantus) Do not hold insulin without contacting prescriber WASTE: F/P - Black; E - Municipal Trash Bin "single patient use only" Inactive 01/20/2017 [facility] insulin aspart 15 unit, 0.15 mL, Route: [...] Expires in days from Date Inactive 01/20/2017 [facility] Insulin Lispro 30 unit, Route: SUB-Q, Drug form: SOLN, TID-Before Meals, Dosing Weight 125, kg, Start date: 01/20/17 7:30:00 CDT, Duration: 30 day, Stop date: 02/18/17 16:30:00 CDT No Longer Active 01/20/2017 [facility] Isolyte S (PH 7.4) 1000 mL 1,000 mL 1,000 mL, Rate: 125 ml/hr, Infuse over: 8 hr, Route: IV, Dosing Weight 125 kg, Total Volume: 1,000, Start date: 01/20/17 6:52:00 CDT, Duration: 30 day, Stop date: 02/19/17 6:51:00 CDTNotes: (Same as: Isolyte S PH 7.4) Inactive 01/20/2017 [facility] heparin 5,000 unit, 1 mL, Route: SUB-Q, Drug form: INJ, Q8H, Dosing Weight 125, kg, Start date: 01/20/17 0:00:00 CDT, Duration: 30 day, Stop date: 02/18/17 16:00:00 CDTNotes: porcine heparin No Longer Active 01/20/2017 [facility] cefepime 1 gm, Route: IV, Drug form: INJ, Q12H, Dosing Weight 125, kg, Start date: 01/19/17 21:00:00 CDT, Duration: 7 day, Stop date: 01/26/17 9:00:00 CDT, ABX Indication: Skin/Soft Tissue InfectionNotes: (Same As: Maxipime) MEDICATION WASTE Product Size: 1000 mg Product Wasted: ___ mg No Longer Active 01/20/2017 [facility] Crestor 20 mg, 2 tab, Route: PO, Drug form: TAB, Bedtime, Dosing Weight 125, kg, Start date: 01/19/17 21:00:00 CDT, Duration: 30 day, Stop date: 02/17/17 21:00:00 CDTNotes: (Same As: Crestor) No Longer Active 01/20/2017 [facility] Tylenol 1,000 mg, 2 tab, Route: PO, Drug form: TAB, ONCE, Dosing Weight 125, kg, Priority: STAT, Start date: 01/19/17 19:13:00 CDT, Stop date: 01/19/17 19:13:00 CDTNotes: Max acetaminophen 4000 mg/day (4 gm/day). (Same as: Tylenol Extra Strength) Inactive 01/20/2017 [facility] Morphine 4 mg, 1 mL, Route: IVP, Drug form: INJ, ONCE, Dosing Weight 125, kg, Priority: STAT, Start date: 01/19/17 18:42:00 CDT, Stop date: 01/19/17 18:42:00 CDTNotes: (Same as:MORPhine Sulfate) Inactive 01/19/2017 [facility] tramadol hydrochloride 50 MG Oral Tablet 50 mg, 1 tab, Route: PO, Drug form: TAB, Q6H, Dosing Weight 125, kg, PRN Pain Score 1-5, Start date: 01/19/17 17:01:00 CDT, Stop date: 02/18/17 17:00:00 CDTNotes: Not to exceed 400mg/day. (Same As: Ultram) No Longer Active 01/19/2017 [facility] Acetaminophen 325 MG / Hydrocodone Bitartrate 5 MG Oral Tablet [Carrie 5/325] 1 tab, Route: PO, Drug Form: TAB, Dosing Weight 125, kg, Q4H, PRN Pain Score 6-10, Start date: 01/19/17 17:01:00 CDT, Duration: 30 day, Stop date: 02/18/17 17:00:00 CDTNotes: (Same as: Carrie 325/5) Do not exceed 4gm/day of acetaminophen. No Longer Active 01/19/2017 [facility] Clonidine Hydrochloride 0.1 MG Oral Tablet 0.1 mg, 1 tab, Route: PO, Drug form: TAB, TID, Dosing Weight 125, kg, Start date: 01/19/17 17:00:00 CDT, Duration: 30 day, Stop date: 02/18/17 13:00:00 CDTNotes: (Same As: Catapres) No Longer Active 01/19/2017 [facility] Flagyl 500 mg, 100 mL, Route: IV, Drug form: INJ, ABXQ8H, Dosing Weight 125, kg, Start date: 01/19/17 17:00:00 CDT, Stop date: 01/26/17 17:00:00 CDT, ABX Indication: Skin/Soft Tissue InfectionNotes: (Same as: Flagyl) Avoid alcohol. No Longer Active 01/19/2017 [facility] Heparin 40 unit/kg Bolus (Heparin Dosing Weight) Route: IVP, PRN, 4,200 unit, 4.2 mL, Drug form: INJ, PRN, Heparin Protocol, Start date: 01/19/17 16:56:00 CDT Stop date: 02/18/17 16:55:00 CDT, 30 day Inactive 01/19/2017 [facility] heparin additive 25,000 unit [18 unit/kg/hr] + Premix Diluent Dextrose 5% 500 mL 500 mL, Rate: 37.74 ml/hr, Infuse over: 13.2 hr, Route: IV, Dosing Weight 104.84 kg, Total Volume: 500 mL, Start date: 01/19/17 16:56:00 CDT, Duration: 30 day, Stop date: 02/18/17 16:55:00 CDT Inactive 01/19/2017 [facility] Heparin - one time bolus for DVT/PE 6,400 unit, 6.4 mL, Route: IVP, Drug form: INJ, ONCE, Dosing Weight 125, kg, Priority: STAT, Start date: 01/19/17 16:56:00 CDT, Stop date: 01/19/17 16:56:00 CDT Inactive 01/19/2017 [facility] Heparin 80 unit/kg Bolus (Heparin Dosing Weight) Route: IVP, PRN, 8,400 unit, 8.4 mL, Drug form: INJ, PRN, Heparin Protocol, Start date: 01/19/17 16:56:00 CDT Stop date: 02/18/17 16:55:00 CDT, 30 day Inactive 01/19/2017 [facility] tramadol hydrochloride 50 MG Oral Tablet 50 mg=1 tab, PO, Q6H, PRN Pain, # 40 tab, 0 Refill(s) No Longer Active 01/19/2017 [facility] Furosemide 20 MG Oral Tablet 20 mg=1 tab, PO, Daily, # 30 tab, 0 Refill(s) No Longer Active 01/19/2017 [facility] HumaLOG KwikPen (Concentrated) 36 units, SUB-Q, Before Dinner, 0 Refill(s) No Longer Active 01/19/2017 [facility] Plasma-Lyte A PH-7.4 1000 ml INJ 1,000 mL 1,000 mL, Rate: 125 ml/hr, Infuse over: 8 hr, Route: IV, Dosing Weight 125 kg, Total Volume: 1,000, Start date: 01/19/17 14:51:00 CDT, Duration: 30 day, Stop date: 02/18/17 14:50:00 CDTNotes: WASTE: F/P - Sink; E - Municipal Trash Bin Inactive 01/19/2017 [facility] Morphine 4 mg, 1 mL, Route: IVP, Drug form: INJ, ONCE, Dosing Weight 125, kg, Priority: STAT, Start date: 01/19/17 14:28:00 CDT, Stop date: 01/19/17 14:28:00 CDTNotes: (Same as:MORPhine Sulfate) Inactive 01/19/2017 [facility] Vancomycin 2 gm, Route: IVPB, ONCE, Dosing Weight 125, kg, TIME CRITICAL MEDICATION, Priority: STAT, Start date: 01/19/17 12:39:00 CDT, Duration: 1 doses or times, Stop date: 01/19/17 12:39:00 CDT, ABX Indication: Skin/Soft Tissue Infection Inactive 01/19/2017 [facility] cefepime 1 gm, Route: IVPB, ONCE, Dosing Weight 125, kg, Priority: STAT, Start date: 01/19/17 12:39:00 CDT, Duration: 1 doses or times, Stop date: 01/19/17 12:39:00 CDT, ABX Indication: Skin/Soft Tissue Infection Inactive 01/19/2017 [facility] Acetaminophen 650 mg, Route: PO, Drug form: TAB, ONCE, Dosing Weight 125, kg, Start date: 01/19/17 12:39:00 CDT, Stop date: 01/19/17 12:39:00 CDT Inactive 01/19/2017 [facility] Saline Flush 0.9% 10 mL, Route: IVP, Drug Form: INJ, Dosing Weight 125, kg, PRN, PRN Line Flush, Start date: 01/19/17 12:39:00 CDT, Duration: 30 day, Stop date: 02/18/17 12:38:00 CDTNotes: Same as: BD Posiflush Sterile No Longer Active 01/19/2017 [facility] Calcium Chloride 0.0014 MEQ/ML / Potassium Chloride 0.004 MEQ/ML / Sodium Chloride 0.103 MEQ/ML / Sodium Lactate 0.028 MEQ/ML Injectable Solution 3,750 mL, 2,000 ml/hr, Route: IV, ONCE, Priority: STAT, Dosing Weight 125 kg, Start date: 01/19/17 12:39:00 CDT, Duration: 1 doses or times, Stop date: 01/19/17 12:39:00 CDT Inactive 01/19/2017 [facility] Saline Flush 0.9% 10 mL, Route: IVP, Drug Form: INJ, Dosing Weight 125, kg, PRN, PRN Line Flush, Start date: 01/19/17 12:30:00 CDT, Duration: 30 day, Stop date: 02/18/17 12:29:00 CDTNotes: Same as: BD Posiflush Sterile No Longer Active 01/19/2017 [facility] Allergies, Adverse Reactions, Alerts Substance Category Reaction Severity Reaction type Status Date Reported Comments Source clindamycin Assertion Drug allergy Active [facility] hydrALAZINE<sup>1</sup> Assertion Drug allergy Active Data migrated from deltaDNA on 10/22/14. Originally documented as HYDRALAZINE HCL. dyspnea [facility] Immunizations Immunization Date Given Site Status Last Updated Comments Source influenza virus vaccine, inactivated 04/08/2018 completed [facility] pneumococcal 13-valent vaccine 04/11/2017 Left Deltoid completed [facility], JESSE Salmeron Hx influenza vaccine-unspecified<sup>1</sup> 04/26/2014 completed [facility] Result Comment: done. Migrated from OBS ; Data migrated from deltaDNA on 07/26/2015[facility], JESSE Guerrier, JESSE Salmeron Results Order Name Results Value Reference Range Date Interpretation Comments Source CHEM PANEL Glucose Lvl 120 70 - 99 02/05/2019 [facility] CHEM PANEL BUN 65 7 - 22 02/05/2019 [facility] CHEM PANEL Creatinine Lvl 2.45 0.50 - 1.40 02/05/2019 [facility] CHEM PANEL Sodium Lvl 139 135 - 145 02/05/2019 [facility] CHEM PANEL Potassium Lvl 3.9 3.5 - 5.1 02/05/2019 [facility] CHEM PANEL Chloride Lvl 107 95 - 109 02/05/2019 [facility] CHEM PANEL CO2 21 24 - 32 02/05/2019 [facility] CHEM PANEL Calcium Lvl 9.6 8.5 - 10.5 02/05/2019 [facility] CHEM PANEL AGAP 14.9 10.0 - 20.0 02/05/2019 [facility] CHEM PANEL eGFR 26 02/05/2019 Result Comment: [...] should be multiplied by the estimated BMI. [facility] CHEM PANEL Glucose Lvl 118 70 - 99 02/04/2019 [facility] CHEM PANEL BUN 63 7 - 22 02/04/2019 [facility] CHEM PANEL Creatinine Lvl 2.94 0.50 - 1.40 02/04/2019 [facility] CHEM PANEL Sodium Lvl 138 135 - 145 02/04/2019 [facility] CHEM PANEL Potassium Lvl 3.8 3.5 - 5.1 02/04/2019 [facility] CHEM PANEL Chloride Lvl 106 95 - 109 02/04/2019 [facility] CHEM PANEL CO2 21 24 - 32 02/04/2019 [facility] CHEM PANEL Calcium Lvl 9.3 8.5 - 10.5 02/04/2019 [facility] CHEM PANEL AGAP 14.8 10.0 - 20.0 02/04/2019 [facility] CHEM PANEL eGFR 21 02/04/2019 Result Comment: [...] should be multiplied by the estimated BMI. [facility] CHEM PANEL Glucose Lvl 133 70 - 99 02/03/2019 [facility] CHEM PANEL BUN 62 7 - 22 02/03/2019 [facility] CHEM PANEL Creatinine Lvl 3.47 0.50 - 1.40 02/03/2019 [facility] CHEM PANEL Sodium Lvl 132 135 - 145 02/03/2019 [facility] CHEM PANEL Potassium Lvl 3.9 3.5 - 5.1 02/03/2019 [facility] CHEM PANEL Chloride Lvl 100 95 - 109 02/03/2019 [facility] CHEM PANEL CO2 17 24 - 32 02/03/2019 [facility] CHEM PANEL Calcium Lvl 8.9 8.5 - 10.5 02/03/2019 [facility] CHEM PANEL AGAP 18.9 10.0 - 20.0 02/03/2019 [facility] CHEM PANEL eGFR 17 02/03/2019 Result Comment: [...] should be multiplied by the estimated BMI. [facility] HEMATOLOGY WBC 7.7 3.7 - 10.4 02/03/2019 [facility] HEMATOLOGY RBC 3.63 4.70 - 6.10 02/03/2019 [facility] HEMATOLOGY Hgb 10.4 14.0 - 18.0 02/03/2019 [facility] HEMATOLOGY Hct 31.2 42.0 - 54.0 02/03/2019 [facility] HEMATOLOGY MCV 85.9 80.0 - 94.0 02/03/2019 [facility] HEMATOLOGY MCH 28.7 27.0 - 31.0 02/03/2019 [facility] HEMATOLOGY MCHC 33.4 32.0 - 36.0 02/03/2019 [facility] HEMATOLOGY RDW 20.9 11.5 - 14.5 02/03/2019 [facility] HEMATOLOGY Platelet 244 133 - 450 02/03/2019 [facility] HEMATOLOGY MPV 9.1 7.4 - 10.4 02/03/2019 [facility] HEMATOLOGY Segs 76.3 45.0 - 75.0 02/03/2019 [facility] HEMATOLOGY Lymphocytes 15.8 20.0 - 40.0 02/03/2019 [facility] HEMATOLOGY Monocytes 6.5 2.0 - 12.0 02/03/2019 [facility] HEMATOLOGY Eosinophils 0.7 0.0 - 4.0 02/03/2019 [facility] HEMATOLOGY Basophils 0.7 0.0 - 1.0 02/03/2019 [facility] HEMATOLOGY Neutrophils # 5.9 1.5 - 8.1 02/03/2019 [facility] HEMATOLOGY Lymphocytes # 1.2 1.0 - 5.5 02/03/2019 [facility] HEMATOLOGY Monocytes # 0.5 0.0 - 0.8 02/03/2019 [facility] HEMATOLOGY Eosinophils # 0.1 0.0 - 0.5 02/03/2019 [facility] HEMATOLOGY Basophils # 0.1 0.0 - 0.2 02/03/2019 [facility] URINE AND STOOL UA Color Yellow *NA* (02/02/19 9:13 PM) Yellow 02/03/2019 [facility] URINE AND STOOL UA Turbidity Slight *ABN* (02/02/19 9:13 PM) Clear 02/03/2019 [facility] URINE AND STOOL UA Spec Grav 1.016 <=1.030 02/03/2019 [facility] URINE AND STOOL UA pH 6.0 5.0 - 8.0 02/03/2019 [facility] URINE AND STOOL UA Protein >=300 mg/dL Negative mg/dL 02/03/2019 [facility] URINE AND STOOL UA Ketones Negative mg/dL Negative mg/dL 02/03/2019 [facility] URINE AND STOOL UA Bili Negative *NA* (02/02/19 9:13 PM) Negative 02/03/2019 [facility] URINE AND STOOL UA Blood Small *ABN* (02/02/19 9:13 PM) Negative 02/03/2019 [facility] URINE AND STOOL UA Urobilinogen <1.0 0.1 - 1.0 02/03/2019 [facility] URINE AND STOOL UA Nitrite Negative (02/02/19 9:13 PM) Negative 02/03/2019 [facility] URINE AND STOOL UA Leuk Est Negative (02/02/19 9:13 PM) Negative 02/03/2019 [facility] URINE AND STOOL UA Sq Epi Occasional /LPF Few /LPF 02/03/2019 [facility] URINE AND STOOL UA WBC 3 0 - 5 02/03/2019 [facility] URINE AND STOOL UA RBC 26 0 - 2 02/03/2019 [facility] URINE AND STOOL UA Bacteria Occasional /HPF None Seen /HPF 02/03/2019 [facility] URINE AND STOOL UA Mucus Few /LPF None Seen /LPF 02/03/2019 [facility] URINE AND STOOL UA Glucose 50mg/dl 02/03/2019 [facility] CHEM PANEL Ammonia 20.0 <=45.0 uMol/L 02/01/2019 [facility] CHEM PANEL Total Protein 7.7 6.4 - 8.4 02/01/2019 [facility] CHEM PANEL Albumin Lvl 3.9 3.5 - 5.0 02/01/2019 [facility] CHEM PANEL ALT 10 0 - 65 02/01/2019 [facility] CHEM PANEL AST 17 0 - 37 02/01/2019 [facility] CHEM PANEL Alk Phos 144 39 - 136 02/01/2019 [facility] CHEM PANEL Bili Total 0.6 0.2 - 1.3 02/01/2019 [facility] CHEM PANEL Bili Direct 0.2 0.0 - 0.3 02/01/2019 [facility] CHEM PANEL Bili Indirect 0.4 0.0 - 1.0 02/01/2019 [facility] CHEM PANEL Globulin 3.8 2.7 - 4.2 02/01/2019 [facility] CHEM PANEL A/G Ratio 1.0 0.7 - 1.6 02/01/2019 [facility] HEMATOLOGY WBC 6.0 3.7 - 10.4 02/01/2019 [facility] HEMATOLOGY RBC 3.69 4.70 - 6.10 02/01/2019 [facility] HEMATOLOGY Hgb 10.2 14.0 - 18.0 02/01/2019 [facility] HEMATOLOGY Hct 31.5 42.0 - 54.0 02/01/2019 [facility] HEMATOLOGY MCV 85.4 80.0 - 94.0 02/01/2019 [facility] HEMATOLOGY MCH 27.6 27.0 - 31.0 02/01/2019 [facility] HEMATOLOGY MCHC 32.3 32.0 - 36.0 02/01/2019 [facility] HEMATOLOGY RDW 20.4 11.5 - 14.5 02/01/2019 [facility] HEMATOLOGY Platelet 258 133 - 450 02/01/2019 [facility] HEMATOLOGY MPV 8.6 7.4 - 10.4 02/01/2019 [facility] HEMATOLOGY Segs 77.2 45.0 - 75.0 02/01/2019 [facility] HEMATOLOGY Lymphocytes 12.2 20.0 - 40.0 02/01/2019 [facility] HEMATOLOGY Monocytes 7.1 2.0 - 12.0 02/01/2019 [facility] HEMATOLOGY Eosinophils 2.2 0.0 - 4.0 02/01/2019 [facility] HEMATOLOGY Basophils 1.3 0.0 - 1.0 02/01/2019 [facility] HEMATOLOGY Neutrophils # 4.6 1.5 - 8.1 02/01/2019 [facility] HEMATOLOGY Lymphocytes # 0.7 1.0 - 5.5 02/01/2019 [facility] HEMATOLOGY Monocytes # 0.4 0.0 - 0.8 02/01/2019 [facility] HEMATOLOGY Eosinophils # 0.1 0.0 - 0.5 02/01/2019 [facility] HEMATOLOGY Basophils # 0.1 0.0 - 0.2 02/01/2019 [facility] HEMATOLOGY Segs 68.2 45.0 - 75.0 01/31/2019 [facility] HEMATOLOGY Lymphocytes 18.1 20.0 - 40.0 01/31/2019 [facility] HEMATOLOGY Monocytes 8.0 2.0 - 12.0 01/31/2019 [facility] HEMATOLOGY Eosinophils 4.3 0.0 - 4.0 01/31/2019 [facility] HEMATOLOGY Basophils 1.4 0.0 - 1.0 01/31/2019 [facility] HEMATOLOGY Neutrophils # 3.3 1.5 - 8.1 01/31/2019 [facility] HEMATOLOGY Lymphocytes # 0.9 1.0 - 5.5 01/31/2019 [facility] HEMATOLOGY Monocytes # 0.4 0.0 - 0.8 01/31/2019 [facility] HEMATOLOGY Eosinophils # 0.2 0.0 - 0.5 01/31/2019 [facility] HEMATOLOGY Basophils # 0.1 0.0 - 0.2 01/31/2019 [facility] HEMATOLOGY WBC 4.8 3.7 - 10.4 01/31/2019 [facility] HEMATOLOGY RBC 3.16 4.70 - 6.10 01/31/2019 [facility] HEMATOLOGY Hgb 9.1 14.0 - 18.0 01/31/2019 [facility] HEMATOLOGY Hct 27.3 42.0 - 54.0 01/31/2019 [facility] HEMATOLOGY MCV 86.5 80.0 - 94.0 01/31/2019 [facility] HEMATOLOGY MCH 28.9 27.0 - 31.0 01/31/2019 [facility] HEMATOLOGY MCHC 33.4 32.0 - 36.0 01/31/2019 [facility] HEMATOLOGY RDW 21.0 11.5 - 14.5 01/31/2019 [facility] HEMATOLOGY Platelet 211 133 - 450 01/31/2019 [facility] HEMATOLOGY MPV 8.6 7.4 - 10.4 01/31/2019 [facility] HEMATOLOGY PT 14.3 12.0 - 14.7 01/30/2019 [facility] HEMATOLOGY INR 1.13 0.85 - 1.17 01/30/2019 [facility] HEMATOLOGY PTT 32.3 22.9 - 35.8 01/30/2019 [facility] CHEM PANEL Magnesium Lvl 1.8 1.8 - 2.4 01/30/2019 [facility] CHEM PANEL Phosphorus 2.9 2.5 - 4.5 01/30/2019 [facility] HEMATOLOGY PT 14.6 12.0 - 14.7 01/29/2019 [facility] HEMATOLOGY INR 1.16 0.85 - 1.17 01/29/2019 [facility] HEMATOLOGY PTT 68.2 22.9 - 35.8 01/29/2019 [facility] HEMATOLOGY PT 14.5 12.0 - 14.7 01/29/2019 [facility] HEMATOLOGY INR 1.15 0.85 - 1.17 01/29/2019 [facility] HEMATOLOGY PTT 66.3 22.9 - 35.8 01/29/2019 [facility] BLOOD BANK RESULTS ABO/Rh O NEG 01/29/2019 [facility] BLOOD BANK RESULTS Antibody Scrn Negative (01/29/19 3:18 AM) 01/29/2019 [facility] HEMATOLOGY Anisocyte 1+ *ABN* (01/29/19 3:12 AM) None Seen 01/29/2019 [facility] IMMUNOLOGY Homocyst Tot 12.7 3.7 - 13.9 01/28/2019 [facility] AMINO ACID MMA Qnt 271 0 - 378 01/28/2019 [facility] AMINO ACID Disclaimer (Org Acid) Comment 01/28/2019 Result Comment:
This test was developed and its performance characteristics
determined by [facility]. It has not been cleared or
approved by the Food and Drug Administration.
Performed At: [facility]
[address] [place] [id number]
Chaim Petit MD Ph:[phone] [facility] ANEMIA STUDY Ferritin Lvl 49 22 - 275 01/28/2019 [facility] ANEMIA STUDY Iron 27 45 - 160 01/28/2019 [facility] ANEMIA STUDY TIBC 323 228 - 428 01/28/2019 [facility] ANEMIA STUDY UIBC 296 110 - 370 01/28/2019 [facility] ANEMIA STUDY % Satur Fe 8 12 - 57 01/28/2019 [facility] ANEMIA STUDY Folate Lvl 24.6 >=3.0 ng/mL 01/28/2019 [facility] ANEMIA STUDY Vitamin B12 Lvl 957 254 - 1320 01/28/2019 [facility] CHEM PANEL Bili Total 0.4 0.2 - 1.3 01/28/2019 [facility] CHEM PANEL Bili Direct 0.1 0.0 - 0.3 01/28/2019 [facility] CHEM PANEL Bili Indirect 0.3 0.0 - 1.0 01/28/2019 [facility] CHEM PANEL Erythropoietin 41.2 2.6 - 18.5 01/28/2019 Result Comment: [employer] DxI 800 Immunoassay System

Values obtained with different assay methods or kits cannot
be used interchangeably. Results cannot be interpreted as
absolute evidence of the presence or absence of malignant
disease.
Performed At: [facility]
[address], [place] [id number]
Chaim Petit MD Ph:[phone] [facility] HEMATOLOGY Retic Auto 1.0 0.5 - 1.5 01/28/2019 [facility] HEMATOLOGY PB Smear Path Peripheral blood smear shows hypochromic anemia with anisopoikilocytosis, slight polychromasia. Impression: iron deficiency anemia vs. anemia of chronic disease. CPT: 27133 01/28/2019 [facility] BLOOD BANK RESULTS RBC product Product available (01/28/19 6:28 AM) 01/28/2019 [facility] BLOOD BANK RESULTS RBC product Product available (01/28/19 6:24 AM) 01/28/2019 [facility] CHEM PANEL Magnesium Lvl 1.9 1.8 - 2.4 01/28/2019 [facility] CHEM PANEL Phosphorus 3.7 2.5 - 4.5 01/28/2019 [facility] HEMATOLOGY Anisocyte 1+ *ABN* (01/28/19 3:46 AM) None Seen 01/28/2019 [facility] HEMATOLOGY Microcyte 1+ *ABN* (01/28/19 3:46 AM) None Seen 01/28/2019 [facility] CHEM PANEL B/C Ratio 20 6 - 25 01/27/2019 [facility] CHEM PANEL Total Protein 7.0 6.4 - 8.4 01/27/2019 [facility] CHEM PANEL Albumin Lvl 3.7 3.5 - 5.0 01/27/2019 [facility] CHEM PANEL Globulin 3.3 2.7 - 4.2 01/27/2019 [facility] CHEM PANEL A/G Ratio 1.1 0.7 - 1.6 01/27/2019 [facility] CHEM PANEL ALT 10 0 - 65 01/27/2019 [facility] CHEM PANEL AST 10 0 - 37 01/27/2019 [facility] CHEM PANEL Alk Phos 153 39 - 136 01/27/2019 [facility] CHEM PANEL Bili Total 0.3 0.2 - 1.3 01/27/2019 [facility] HEMATOLOGY Anisocyte 1+ *ABN* (01/27/19 6:04 AM) None Seen 01/27/2019 [facility] PARATHYROID PROFILE Ca Ion WB 1.35 1.05 - 1.25 01/27/2019 [facility] PARATHYROID PROFILE Ca Norm WB 1.29 1.05 - 1.25 01/27/2019 [facility] BACTERIAL - SEROLOGY MRSA by PCR Negative (01/26/19 1:34 PM) 01/26/2019 [facility] CARDIAC ENZYMES Troponin-I <0.02 0.00 - 0.40 01/26/2019 [facility] CHEM PANEL Magnesium Lvl 2.1 1.8 - 2.4 01/26/2019 [facility] CHEM PANEL Phosphorus 4.7 2.5 - 4.5 01/26/2019 [facility] CHEM PANEL Total Protein 5.8 6.4 - 8.4 01/26/2019 [facility] CHEM PANEL Albumin Lvl 2.9 3.5 - 5.0 01/26/2019 [facility] CHEM PANEL Globulin 2.9 2.7 - 4.2 01/26/2019 [facility] CHEM PANEL A/G Ratio 1.0 0.7 - 1.6 01/26/2019 [facility] CHEM PANEL ALT 11 0 - 65 01/26/2019 [facility] CHEM PANEL AST 9 0 - 37 01/26/2019 [facility] CHEM PANEL Alk Phos 117 39 - 136 01/26/2019 [facility] CHEM PANEL Bili Direct <0.1 0.0 - 0.3 01/26/2019 [facility] CHEM PANEL Bili Indirect Unable to Calculate 0.0 - 1.0 01/26/2019 [facility] HEMATOLOGY Plt Morph Normal (01/26/19 1:34 PM) Normal 01/26/2019 [facility] HEMATOLOGY Microcyte 1+ *ABN* (01/26/19 1:34 PM) None Seen 01/26/2019 [facility] LIPIDS Trig 87 <=149 mg/dL 01/26/2019 [facility] LIPIDS Chol 109 <=199 mg/dL 01/26/2019 [facility] LIPIDS HDL 34 >=61 mg/dL 01/26/2019 [facility] LIPIDS LDL (Calculated) 58 <=99 mg/dL 01/26/2019 [facility] LIPIDS VLDL 17 01/26/2019 [facility] LIPIDS CHD Risk 3.21 4.00 - 7.30 01/26/2019 [facility] PARATHYROID PROFILE Ca Ion WB 1.25 1.05 - 1.25 01/26/2019 [facility] PARATHYROID PROFILE Ca Norm WB 1.18 1.05 - 1.25 01/26/2019 [facility] SPECIAL CHEMISTRY Hgb A1C <3.5 % <=5.6 % 01/26/2019 [facility] URINE AND STOOL UA Color Light Yellow *NA* (01/26/19 1:34 PM) Yellow 01/26/2019 [facility] URINE AND STOOL UA Turbidity Slight *ABN* (01/26/19 1:34 PM) Clear 01/26/2019 [facility] URINE AND STOOL UA Spec Grav 1.010 <=1.030 01/26/2019 [facility] URINE AND STOOL UA pH 5.0 5.0 - 8.0 01/26/2019 [facility] URINE AND STOOL UA Protein Negative mg/dL Negative mg/dL 01/26/2019 [facility] URINE AND STOOL UA Glucose Negative mg/dL Negative mg/dL 01/26/2019 [facility] URINE AND STOOL UA Ketones Negative mg/dL Negative mg/dL 01/26/2019 [facility] URINE AND STOOL UA Bili Negative *NA* (01/26/19 1:34 PM) Negative 01/26/2019 [facility] URINE AND STOOL UA Blood Negative (01/26/19 1:34 PM) Negative 01/26/2019 [facility] URINE AND STOOL UA Urobilinogen <1.0 0.1 - 1.0 01/26/2019 [facility] URINE AND STOOL UA Nitrite Negative (01/26/19 1:34 PM) Negative 01/26/2019 [facility] URINE AND STOOL UA Leuk Est Negative (01/26/19 1:34 PM) Negative 01/26/2019 [facility] URINE AND STOOL UA WBC <1 0 - 5 01/26/2019 [facility] URINE AND STOOL UA RBC 1 0 - 2 01/26/2019 [facility] URINE AND STOOL UA Bacteria Occasional /HPF None Seen /HPF 01/26/2019 [facility] URINE AND STOOL UA Sq Epi None Seen 01/26/2019 [facility] BLOOD BANK RESULTS ABO/Rh O NEG 01/26/2019 [facility] BLOOD BANK RESULTS Antibody Scrn Negative (01/26/19 5:40 AM) 01/26/2019 [facility] BLOOD BANK RESULTS ABO/Rh O NEG 11/07/2018 [facility] BLOOD BANK RESULTS Antibody Scrn Negative (11/07/18 12:38 AM) 11/07/2018 [facility] CHEM PANEL eGFR 53 11/07/2018 Result Comment: [...] should be multiplied by the estimated BMI. [facility] CHEM PANEL Glucose Lvl 103 70 - 99 11/07/2018 [facility] CHEM PANEL CO2 26 24 - 32 11/07/2018 [facility] CHEM PANEL Calcium Lvl 8.9 8.5 - 10.5 11/07/2018 [facility] CHEM PANEL Creatinine Lvl 1.36 0.50 - 1.40 11/07/2018 [facility] CHEM PANEL BUN 23 7 - 22 11/07/2018 [facility] CHEM PANEL Sodium Lvl 141 135 - 145 11/07/2018 [facility] CHEM PANEL Chloride Lvl 112 95 - 109 11/07/2018 [facility] CHEM PANEL Potassium Lvl 4.3 3.5 - 5.1 11/07/2018 [facility] CHEM PANEL AGAP 7.3 10.0 - 20.0 11/07/2018 [facility] HEMATOLOGY Basophils # 0.1 0.0 - 0.2 11/07/2018 [facility] HEMATOLOGY Anisocyte 1+ *ABN* (11/07/18 12:38 AM) None Seen 11/07/2018 [facility] HEMATOLOGY Lymphocytes # 1.2 1.0 - 5.5 11/07/2018 [facility] HEMATOLOGY Neutrophils # 5.9 1.5 - 8.1 11/07/2018 [facility] HEMATOLOGY Eosinophils # 0.3 0.0 - 0.5 11/07/2018 [facility] HEMATOLOGY Monocytes # 0.5 0.0 - 0.8 11/07/2018 [facility] HEMATOLOGY Lymphocytes 14.4 20.0 - 40.0 11/07/2018 [facility] HEMATOLOGY Segs 73.6 45.0 - 75.0 11/07/2018 [facility] HEMATOLOGY Basophils 1.4 0.0 - 1.0 11/07/2018 [facility] HEMATOLOGY Eosinophils 4.0 0.0 - 4.0 11/07/2018 [facility] HEMATOLOGY Monocytes 6.6 2.0 - 12.0 11/07/2018 [facility] HEMATOLOGY PT 15.3 12.0 - 14.7 11/07/2018 [facility] HEMATOLOGY PTT 39.1 22.9 - 35.8 11/07/2018 [facility] HEMATOLOGY INR 1.23 0.85 - 1.17 11/07/2018 [facility] HEMATOLOGY MPV 7.6 7.4 - 10.4 11/07/2018 [facility] HEMATOLOGY Platelet 390 133 - 450 11/07/2018 [facility] HEMATOLOGY MCHC 32.3 32.0 - 36.0 11/07/2018 [facility] HEMATOLOGY MCH 28.6 27.0 - 31.0 11/07/2018 [facility] HEMATOLOGY MCV 88.7 80.0 - 94.0 11/07/2018 [facility] HEMATOLOGY Hct 25.2 42.0 - 54.0 11/07/2018 [facility] HEMATOLOGY RDW 21.1 11.5 - 14.5 11/07/2018 [facility] HEMATOLOGY Hgb 8.1 14.0 - 18.0 11/07/2018 [facility] HEMATOLOGY RBC 2.84 4.70 - 6.10 11/07/2018 [facility] HEMATOLOGY WBC 8.0 3.7 - 10.4 11/07/2018 [facility] ELECTROLYTES CO2 25 24 - 32 11/06/2018 [facility] ELECTROLYTES eGFR 42 11/06/2018 Result Comment: The [...] should be multiplied by the estimated BMI. [facility] ELECTROLYTES Calcium Lvl 8.9 8.5 - 10.5 11/06/2018 [facility] ELECTROLYTES AGAP 7.5 10.0 - 20.0 11/06/2018 [facility] ELECTROLYTES BUN 25 7 - 22 11/06/2018 [facility] ELECTROLYTES Creatinine Lvl 1.64 0.50 - 1.40 11/06/2018 [facility] ELECTROLYTES Sodium Lvl 139 135 - 145 11/06/2018 [facility] ELECTROLYTES Glucose Lvl 122 70 - 99 11/06/2018 [facility] ELECTROLYTES Chloride Lvl 111 95 - 109 11/06/2018 [facility] ELECTROLYTES Potassium Lvl 4.5 3.5 - 5.1 11/06/2018 [facility] CHEM PANEL eGFR 39 11/05/2018 Result Comment: [...] should be multiplied by the estimated BMI. [facility] CHEM PANEL Glucose Lvl 123 70 - 99 11/05/2018 [facility] CHEM PANEL BUN 25 7 - 22 11/05/2018 [facility] CHEM PANEL Chloride Lvl 112 95 - 109 11/05/2018 [facility] CHEM PANEL CO2 25 24 - 32 11/05/2018 [facility] CHEM PANEL Calcium Lvl 8.4 8.5 - 10.5 11/05/2018 [facility] CHEM PANEL Creatinine Lvl 1.73 0.50 - 1.40 11/05/2018 [facility] CHEM PANEL Sodium Lvl 142 135 - 145 11/05/2018 [facility] CHEM PANEL Potassium Lvl 4.6 3.5 - 5.1 11/05/2018 [facility] CHEM PANEL AGAP 9.6 10.0 - 20.0 11/05/2018 [facility] HEMATOLOGY MPV 7.5 7.4 - 10.4 11/05/2018 [facility] HEMATOLOGY WBC 7.7 3.7 - 10.4 11/05/2018 [facility] HEMATOLOGY Hgb 8.4 14.0 - 18.0 11/05/2018 [facility] HEMATOLOGY Hct 25.9 42.0 - 54.0 11/05/2018 [facility] HEMATOLOGY RBC 2.93 4.70 - 6.10 11/05/2018 [facility] HEMATOLOGY MCV 88.4 80.0 - 94.0 11/05/2018 [facility] HEMATOLOGY Platelet 397 133 - 450 11/05/2018 [facility] HEMATOLOGY RDW 20.1 11.5 - 14.5 11/05/2018 [facility] HEMATOLOGY MCHC 32.3 32.0 - 36.0 11/05/2018 [facility] HEMATOLOGY MCH 28.5 27.0 - 31.0 11/05/2018 [facility] HEMATOLOGY Monocytes # 0.6 0.0 - 0.8 11/05/2018 [facility] HEMATOLOGY Neutrophils # 5.7 1.5 - 8.1 11/05/2018 [facility] HEMATOLOGY Lymphocytes # 1.0 1.0 - 5.5 11/05/2018 [facility] HEMATOLOGY Eosinophils 2.9 0.0 - 4.0 11/05/2018 [facility] HEMATOLOGY Basophils 1.2 0.0 - 1.0 11/05/2018 [facility] HEMATOLOGY Basophils # 0.1 0.0 - 0.2 11/05/2018 [facility] HEMATOLOGY Eosinophils # 0.2 0.0 - 0.5 11/05/2018 [facility] HEMATOLOGY Lymphocytes 13.4 20.0 - 40.0 11/05/2018 [facility] HEMATOLOGY Segs 74.7 45.0 - 75.0 11/05/2018 [facility] HEMATOLOGY Monocytes 7.8 2.0 - 12.0 11/05/2018 [facility] HEMATOLOGY Hgb 8.7 14.0 - 18.0 11/04/2018 [facility] BLOOD BANK RESULTS Antibody Scrn Negative (11/03/18 4:04 AM) 11/03/2018 [facility] BLOOD BANK RESULTS ABO/Rh O NEG 11/03/2018 [facility] HEMATOLOGY Monocytes # 0.5 0.0 - 0.8 11/03/2018 [facility] HEMATOLOGY Basophils # 0.1 0.0 - 0.2 11/03/2018 [facility] HEMATOLOGY Eosinophils # 0.2 0.0 - 0.5 11/03/2018 [facility] HEMATOLOGY Basophils 0.8 0.0 - 1.0 11/03/2018 [facility] HEMATOLOGY Eosinophils 2.7 0.0 - 4.0 11/03/2018 [facility] HEMATOLOGY Monocytes 6.6 2.0 - 12.0 11/03/2018 [facility] HEMATOLOGY Neutrophils # 5.3 1.5 - 8.1 11/03/2018 [facility] HEMATOLOGY Lymphocytes # 0.8 1.0 - 5.5 11/03/2018 [facility] HEMATOLOGY Lymphocytes 12.3 20.0 - 40.0 11/03/2018 [facility] HEMATOLOGY Segs 77.6 45.0 - 75.0 11/03/2018 [facility] HEMATOLOGY RDW 19.6 11.5 - 14.5 11/03/2018 [facility] HEMATOLOGY MCHC 33.2 32.0 - 36.0 11/03/2018 [facility] HEMATOLOGY MCH 28.3 27.0 - 31.0 11/03/2018 [facility] HEMATOLOGY Platelet 368 133 - 450 11/03/2018 [facility] HEMATOLOGY RBC 2.53 4.70 - 6.10 11/03/2018 [facility] HEMATOLOGY WBC 6.9 3.7 - 10.4 11/03/2018 [facility] HEMATOLOGY MCV 85.4 80.0 - 94.0 11/03/2018 [facility] HEMATOLOGY Hct 21.6 42.0 - 54.0 11/03/2018 [facility] HEMATOLOGY MPV 7.8 7.4 - 10.4 11/03/2018 [facility] BLOOD BANK RESULTS RBC product Product available (11/02/18 10:53 AM) 11/02/2018 [facility] BLOOD BANK RESULTS ABO/Rh O NEG 10/30/2018 [facility] BLOOD BANK RESULTS Antibody Scrn Negative (10/30/18 4:46 AM) 10/30/2018 [facility] CARDIAC ENZYMES Total CK 28 12 - 191 10/30/2018 [facility] CHEM PANEL Vitamin D, 25-OH, Total 29.7 30.0 - 100.0 10/30/2018 [facility] HEMATOLOGY Sed Rate 65 0 - 15 10/30/2018 [facility] HEMATOLOGY PTT 29.7 22.9 - 35.8 10/30/2018 [facility] HEMATOLOGY PT 16.0 12.0 - 14.7 10/30/2018 [facility] HEMATOLOGY INR 1.31 0.85 - 1.17 10/30/2018 [facility] IMMUNOLOGY C-REACTIVE PROTEIN 76.6 <=2.9 mg/L 10/30/2018 [facility] SPECIAL CHEMISTRY Hgb A1C 5.8 <=5.6 % 10/30/2018 [facility] TOXICOLOGY Vanco Tr 29.1 08/06/2018 [facility] TOXICOLOGY Vanco Tr TND 1700 08/06/2018 [facility] CHEM PANEL Phosphorus 2.7 2.5 - 4.5 08/06/2018 [facility] CHEM PANEL Magnesium Lvl 1.8 1.8 - 2.4 08/06/2018 [facility] ELECTROLYTES AGAP 14.5 10.0 - 20.0 08/06/2018 [facility] ELECTROLYTES eGFR 46 08/06/2018 Result Comment: The [...] should be multiplied by the estimated BMI. [facility] ELECTROLYTES Calcium Lvl 9.9 8.5 - 10.5 08/06/2018 [facility] ELECTROLYTES Sodium Lvl 138 135 - 145 08/06/2018 [facility] ELECTROLYTES Creatinine Lvl 1.54 0.50 - 1.40 08/06/2018 [facility] ELECTROLYTES CO2 20 24 - 32 08/06/2018 [facility] ELECTROLYTES Chloride Lvl 108 95 - 109 08/06/2018 [facility] ELECTROLYTES Potassium Lvl 4.5 3.5 - 5.1 08/06/2018 [facility] ELECTROLYTES Glucose Lvl 118 70 - 99 08/06/2018 [facility] ELECTROLYTES BUN 22 7 - 22 08/06/2018 [facility] HEMATOLOGY MPV 7.6 7.4 - 10.4 08/06/2018 [facility] HEMATOLOGY RDW 18.4 11.5 - 14.5 08/06/2018 [facility] HEMATOLOGY MCHC 32.1 32.0 - 36.0 08/06/2018 [facility] HEMATOLOGY MCH 27.7 27.0 - 31.0 08/06/2018 [facility] HEMATOLOGY MCV 86.3 80.0 - 94.0 08/06/2018 [facility] HEMATOLOGY Platelet 347 133 - 450 08/06/2018 [facility] HEMATOLOGY WBC 7.4 3.7 - 10.4 08/06/2018 [facility] HEMATOLOGY Hct 34.1 42.0 - 54.0 08/06/2018 [facility] HEMATOLOGY Hgb 10.9 14.0 - 18.0 08/06/2018 [facility] HEMATOLOGY RBC 3.95 4.70 - 6.10 08/06/2018 [facility] HEMATOLOGY Monocytes # 0.4 0.0 - 0.8 08/06/2018 [facility] HEMATOLOGY Basophils 2.6 0.0 - 1.0 08/06/2018 [facility] HEMATOLOGY Lymphocytes # 1.2 1.0 - 5.5 08/06/2018 [facility] HEMATOLOGY Eosinophils # 0.3 0.0 - 0.5 08/06/2018 [facility] HEMATOLOGY Basophils # 0.2 0.0 - 0.2 08/06/2018 [facility] HEMATOLOGY Neutrophils # 5.3 1.5 - 8.1 08/06/2018 [facility] HEMATOLOGY Lymphocytes 16.0 20.0 - 40.0 08/06/2018 [facility] HEMATOLOGY Monocytes 5.7 2.0 - 12.0 08/06/2018 [facility] HEMATOLOGY Eosinophils 4.2 0.0 - 4.0 08/06/2018 [facility] HEMATOLOGY Segs 71.5 45.0 - 75.0 08/06/2018 [facility] CHEM PANEL Magnesium Lvl 1.9 1.8 - 2.4 08/05/2018 [facility] CHEM PANEL Phosphorus 2.9 2.5 - 4.5 08/05/2018 [facility] ELECTROLYTES AGAP 6.4 10.0 - 20.0 08/05/2018 [facility] ELECTROLYTES Glucose Lvl 119 70 - 99 08/05/2018 [facility] ELECTROLYTES BUN 22 7 - 22 08/05/2018 [facility] ELECTROLYTES Chloride Lvl 108 95 - 109 08/05/2018 [facility] ELECTROLYTES CO2 28 24 - 32 08/05/2018 [facility] ELECTROLYTES Sodium Lvl 138 135 - 145 08/05/2018 [facility] ELECTROLYTES Creatinine Lvl 1.34 0.50 - 1.40 08/05/2018 [facility] ELECTROLYTES Potassium Lvl 4.4 3.5 - 5.1 08/05/2018 [facility] ELECTROLYTES Calcium Lvl 9.5 8.5 - 10.5 08/05/2018 [facility] ELECTROLYTES eGFR 54 08/05/2018 Result Comment: The [...] should be multiplied by the estimated BMI. [facility] HEMATOLOGY Eosinophils # 0.3 0.0 - 0.5 08/05/2018 [facility] HEMATOLOGY Basophils # 0.1 0.0 - 0.2 08/05/2018 [facility] HEMATOLOGY Monocytes # 0.4 0.0 - 0.8 08/05/2018 [facility] HEMATOLOGY Monocytes 5.6 2.0 - 12.0 08/05/2018 [facility] HEMATOLOGY Eosinophils 4.5 0.0 - 4.0 08/05/2018 [facility] HEMATOLOGY Lymphocytes 19.2 20.0 - 40.0 08/05/2018 [facility] HEMATOLOGY Segs 68.4 45.0 - 75.0 08/05/2018 [facility] HEMATOLOGY Basophils 2.3 0.0 - 1.0 08/05/2018 [facility] HEMATOLOGY Lymphocytes # 1.2 1.0 - 5.5 08/05/2018 [facility] HEMATOLOGY Neutrophils # 4.4 1.5 - 8.1 08/05/2018 [facility] HEMATOLOGY WBC 6.4 3.7 - 10.4 08/05/2018 [facility] HEMATOLOGY MCV 85.0 80.0 - 94.0 08/05/2018 [facility] HEMATOLOGY MCH 27.9 27.0 - 31.0 08/05/2018 [facility] HEMATOLOGY RDW 18.3 11.5 - 14.5 08/05/2018 [facility] HEMATOLOGY MCHC 32.9 32.0 - 36.0 08/05/2018 [facility] HEMATOLOGY Hgb 10.4 14.0 - 18.0 08/05/2018 [facility] HEMATOLOGY RBC 3.72 4.70 - 6.10 08/05/2018 [facility] HEMATOLOGY Hct 31.7 42.0 - 54.0 08/05/2018 [facility] HEMATOLOGY Platelet 345 133 - 450 08/05/2018 [facility] HEMATOLOGY MPV 7.4 7.4 - 10.4 08/05/2018 [facility] PARATHYROID PROFILE Ca Norm WB 1.29 1.05 - 1.25 08/05/2018 [facility] PARATHYROID PROFILE Ca Ion WB 1.26 1.05 - 1.25 08/05/2018 [facility] TOXICOLOGY Vanco Tr 27.1 08/05/2018 [facility] TOXICOLOGY Vanco Tr TND 1630 08/05/2018 [facility] CHEM PANEL eGFR 52 08/04/2018 Result Comment: [...] should be multiplied by the estimated BMI. [facility] CHEM PANEL Calcium Lvl 9.6 8.5 - 10.5 08/04/2018 [facility] CHEM PANEL AGAP 10.6 10.0 - 20.0 08/04/2018 [facility] CHEM PANEL CO2 27 24 - 32 08/04/2018 [facility] CHEM PANEL BUN 23 7 - 22 08/04/2018 [facility] CHEM PANEL Creatinine Lvl 1.39 0.50 - 1.40 08/04/2018 [facility] CHEM PANEL Potassium Lvl 4.6 3.5 - 5.1 08/04/2018 [facility] CHEM PANEL Sodium Lvl 138 135 - 145 08/04/2018 [facility] CHEM PANEL Chloride Lvl 105 95 - 109 08/04/2018 [facility] CHEM PANEL Glucose Lvl 147 70 - 99 08/04/2018 [facility] CHEM PANEL Magnesium Lvl 1.8 1.8 - 2.4 08/04/2018 [facility] CHEM PANEL Phosphorus 2.4 2.5 - 4.5 08/04/2018 [facility] HEMATOLOGY WBC 6.3 3.7 - 10.4 08/04/2018 [facility] HEMATOLOGY RBC 3.80 4.70 - 6.10 08/04/2018 [facility] HEMATOLOGY Hgb 10.6 14.0 - 18.0 08/04/2018 [facility] HEMATOLOGY Hct 32.2 42.0 - 54.0 08/04/2018 [facility] HEMATOLOGY MCH 27.7 27.0 - 31.0 08/04/2018 [facility] HEMATOLOGY MCV 84.6 80.0 - 94.0 08/04/2018 [facility] HEMATOLOGY MCHC 32.8 32.0 - 36.0 08/04/2018 [facility] HEMATOLOGY RDW 18.0 11.5 - 14.5 08/04/2018 [facility] HEMATOLOGY Platelet 372 133 - 450 08/04/2018 [facility] HEMATOLOGY MPV 7.5 7.4 - 10.4 08/04/2018 [facility] HEMATOLOGY Lymphocytes # 0.8 1.0 - 5.5 08/04/2018 [facility] HEMATOLOGY Neutrophils # 4.8 1.5 - 8.1 08/04/2018 [facility] HEMATOLOGY Monocytes # 0.3 0.0 - 0.8 08/04/2018 [facility] HEMATOLOGY Basophils # 0.1 0.0 - 0.2 08/04/2018 [facility] HEMATOLOGY Eosinophils # 0.2 0.0 - 0.5 08/04/2018 [facility] HEMATOLOGY Lymphocytes 12.8 20.0 - 40.0 08/04/2018 [facility] HEMATOLOGY Segs 75.8 45.0 - 75.0 08/04/2018 [facility] HEMATOLOGY Basophils 2.1 0.0 - 1.0 08/04/2018 [facility] HEMATOLOGY Monocytes 5.5 2.0 - 12.0 08/04/2018 [facility] HEMATOLOGY Eosinophils 3.8 0.0 - 4.0 08/04/2018 [facility] TOXICOLOGY Vanco Tr TND 1000 08/03/2018 [facility] TOXICOLOGY Vanco Tr 22.3 08/03/2018 [facility] PARATHYROID PROFILE Ca Ion WB 1.31 1.05 - 1.25 08/03/2018 [facility] PARATHYROID PROFILE Ca Norm WB 1.30 1.05 - 1.25 08/03/2018 [facility] HEMATOLOGY PTT 55.9 22.9 - 35.8 08/02/2018 [facility] PARATHYROID PROFILE Ca Ion WB 1.28 1.05 - 1.25 08/02/2018 [facility] PARATHYROID PROFILE Ca Norm WB 1.23 1.05 - 1.25 08/02/2018 [facility] BODY FLUIDS Crystal BF Type Other (08/01/18 5:02 PM) 08/01/2018 [facility] BODY FLUIDS Crystal BF Negative (08/01/18 5:02 PM) Negative 08/01/2018 [facility] MEROPENEM:SUSC:PT:ISOLATE:ORDQN:JACQUELINE Gram Stain Report Gram Stain Performed By: [facility] 08/01/2018 [facility] MEROPENEM:SUSC:PT:ISOLATE:ORDQN:JACQUELINE Culture: Aspirate/Body Fluid/Tissue Rare Methicillin Resistant Staphylococcus aureus 08/01/2018 [facility] MEROPENEM:SUSC:PT:ISOLATE:ORDQN:JACQUELINE Methicillin Resistant Staphylococcus aureus Methicillin Resistant Staphylococcus aureus 08/01/2018 [facility] Culture: Anaerobic No Anaerobes Isolated After 5 Days 08/01/2018 [facility] HEMATOLOGY PTT 76.4 22.9 - 35.8 08/01/2018 [facility] HEMATOLOGY PTT 77.3 22.9 - 35.8 07/31/2018 [facility] HEMATOLOGY INR 1.30 0.85 - 1.17 07/31/2018 [facility] HEMATOLOGY PT 15.9 12.0 - 14.7 07/31/2018 [facility] HEMATOLOGY INR 1.33 0.85 - 1.17 07/31/2018 [facility] HEMATOLOGY PT 16.2 12.0 - 14.7 07/31/2018 [facility] TOXICOLOGY Vanco Lvl 4.9 07/30/2018 [facility] HEMATOLOGY INR 1.40 0.85 - 1.17 07/30/2018 [facility] HEMATOLOGY PT 16.9 12.0 - 14.7 07/30/2018 [facility] URINE AND STOOL UA Sq Epi None Seen 07/29/2018 [facility] URINE AND STOOL UA Urobilinogen <=1.0 mg/dL 0.1 - 1.0 07/29/2018 [facility] URINE AND STOOL UA Leuk Est Negative (07/29/18 8:14 AM) Negative 07/29/2018 [facility] URINE AND STOOL UA RBC 1 0 - 2 07/29/2018 [facility] URINE AND STOOL UA Ketones Negative mg/dL Negative mg/dL 07/29/2018 [facility] URINE AND STOOL UA Bili Negative *NA* (07/29/18 8:14 AM) Negative 07/29/2018 [facility] URINE AND STOOL UA Blood Negative (07/29/18 8:14 AM) Negative 07/29/2018 [facility] URINE AND STOOL UA Nitrite Negative (07/29/18 8:14 AM) Negative 07/29/2018 [facility] URINE AND STOOL UA Color Yellow *NA* (07/29/18 8:14 AM) Yellow 07/29/2018 [facility] URINE AND STOOL UA Turbidity Clear (07/29/18 8:14 AM) Clear 07/29/2018 [facility] URINE AND STOOL UA Spec Grav 1.011 <=1.030 07/29/2018 [facility] URINE AND STOOL UA Protein 30 mg/dL Negative mg/dL 07/29/2018 [facility] URINE AND STOOL UA pH 5.5 5.0 - 8.0 07/29/2018 [facility] URINE AND STOOL UA Glucose Negative mg/dL Negative mg/dL 07/29/2018 [facility] URINE CHEM U Sodium 79 07/29/2018 [facility] URINE CHEM U Chloride 86 07/29/2018 [facility] URINE CHEM U Potassium 21.8 07/29/2018 [facility] URINE CHEM U Urea 556 07/29/2018 [facility] CHEM PANEL Lactic Acid Lvl 0.5 0.5 - 2.2 07/29/2018 [facility] IMMUNOLOGY C-REACTIVE PROTEIN 149.0 <=2.9 mg/L 07/29/2018 [facility] HEMATOLOGY Sed Rate 98 0 - 15 07/29/2018 [facility] IMMUNOLOGY C-REACTIVE PROTEIN 171.0 <=2.9 mg/L 07/29/2018 [facility] CHEM PANEL Lactic Acid Lvl 1.2 0.5 - 2.2 07/29/2018 [facility] CHEM PANEL Globulin 2.7 1.9 - 3.7 05/07/2018 [facility] CHEM PANEL Total Protein 6.7 6.1 - 8.1 05/07/2018 [facility] CHEM PANEL Albumin Lvl 4.0 3.6 - 5.1 05/07/2018 [facility] CHEM PANEL ALANINE AMINOTRANSFERASE 13 9 - 46 05/07/2018 [facility] CHEM PANEL Alk Phos 239 40 - 115 05/07/2018 [facility] CHEM PANEL ASPARTATE TRANSAMINASE 15 10 - 35 05/07/2018 [facility] CHEM PANEL A/G Ratio 1.5 1.0 - 2.5 05/07/2018 [facility] CHEM PANEL Bili Total 0.3 0.2 - 1.2 05/07/2018 [facility] CHEM PANEL Potassium Lvl 4.4 3.5 - 5.3 05/07/2018 [facility] CHEM PANEL B/C Ratio 20 6 - 22 05/07/2018 [facility] CHEM PANEL Sodium Lvl 143 135 - 146 05/07/2018 [facility] CHEM PANEL Chloride Lvl 108 98 - 110 05/07/2018 [facility] CHEM PANEL CO2 26 20 - 32 05/07/2018 [facility] CHEM PANEL Calcium Lvl 10.0 8.6 - 10.3 05/07/2018 [facility] CHEM PANEL eGFR 40 > OR=60 mL/min/1.73m2 05/07/2018 [facility] CHEM PANEL eGFR NON-AFR. MONGOLIAN 35 > OR=60 mL/min/1.73m2 05/07/2018 [facility] CHEM PANEL Creatinine Lvl 1.94 0.70 - 1.25 05/07/2018 Result Comment: For patients >49 years of age, the reference limit
for Creatinine is approximately 13% higher for people
identified as -[place]ian. [facility] CHEM PANEL BUN 39 7 - 25 05/07/2018 [facility] CHEM PANEL Glucose Lvl 82 65 - 99 05/07/2018 Result Comment:
Fasting reference interval

Lab test performed by:
[facility]
[address] [place] [address]
[place] [address]
[facility] HEMATOLOGY Segs 75.7 05/07/2018 [facility] HEMATOLOGY Basophils # 87 0 - 200 05/07/2018 [facility] HEMATOLOGY Eosinophils # 268 15 - 500 05/07/2018 [facility] HEMATOLOGY Lymphocytes 13.9 05/07/2018 [facility] HEMATOLOGY Eosinophils 4.0 05/07/2018 [facility] HEMATOLOGY Monocytes 5.1 05/07/2018 [facility] HEMATOLOGY Basophils 1.3 05/07/2018 [facility] HEMATOLOGY Lymphocytes # 931 850 - 3900 05/07/2018 [facility] HEMATOLOGY Monocytes # 342 200 - 950 05/07/2018 [facility] HEMATOLOGY MPV 10.7 7.5 - 12.5 05/07/2018 [facility] HEMATOLOGY Neutrophils # 5072 1500 - 7800 05/07/2018 [facility] HEMATOLOGY WBC X 10x3 6.7 3.8 - 10.8 05/07/2018 Result Comment:
Lab test performed by:
[facility]
[address] [place] [address]
[place] [address]
Jennifer Rosenthal [facility] HEMATOLOGY RBC X 10x6 4.15 4.20 - 5.80 05/07/2018 [facility] HEMATOLOGY Hgb 12.3 13.2 - 17.1 05/07/2018 [facility] HEMATOLOGY Hct 37.6 38.5 - 50.0 05/07/2018 [facility] HEMATOLOGY MCH 29.6 27.0 - 33.0 05/07/2018 [facility] HEMATOLOGY MCV 90.6 80.0 - 100.0 05/07/2018 [facility] HEMATOLOGY MCHC 32.7 32.0 - 36.0 05/07/2018 [facility] HEMATOLOGY RDW 16.4 11.0 - 15.0 05/07/2018 [facility] HEMATOLOGY Platelet 240 140 - 400 05/07/2018 [facility] LIPIDS HDL 37 >40 mg/dL 05/07/2018 [facility] LIPIDS Chol 197 <200 mg/dL 05/07/2018 Result Comment:
Lab test performed by:
[facility]
[address]
[place] [address]
Jennifer Rosenthal [facility] LIPIDS Trig 166 <150 mg/dL 05/07/2018 [facility] LIPIDS LDL (Calculated) 130 05/07/2018 Result Comment: [...] LDL-C.
Olivier LYNCH et al. SAAD. 2013;310(19): 5099-6505
(http://education.LiveAction/faq/MHT182) [facility] LIPIDS Non HDL Chol 160 <130 mg/dL 05/07/2018 Result Comment: For patients with diabetes plus 1 major ASCVD risk
factor, treating to a non-HDL-C goal of <100 mg/dL
(LDL-C of <70 mg/dL) is considered a therapeutic
option. [facility] LIPIDS CHD Risk 5.3 <5.0 (CALC) 05/07/2018 [facility] SPECIAL CHEMISTRY PSA 0.9 < OR=4.0 ng/mL 05/07/2018 Result Comment: The total PSA value from this assay system is
standardized against the WHO standard. The test
result will be approximately 20% lower when compared
to the equimolar-standardized total PSA ([place]
Hood). Comparison of serial PSA results should be
interpreted with this fact in mind.

This test was performed using the Siemens
chemiluminescent method. Values obtained from
different assay methods cannot be used
interchangeably. PSA levels, regardless of
value, should not be interpreted as absolute
evidence of the presence or absence of disease.

Lab test performed by:
[facility]
[address] [place] [address]
[place] [address]
Jennifer Rosenthal [facility] SPECIAL CHEMISTRY Hgb A1C 5.4 <5.7 % [...] diagnosis of diabetes in children.

According to [place] [employer] (ADA)
guidelines, hemoglobin A1c <7.0% represents optimal
control in non- diabetic patients. Different
metrics may apply to specific patient populations.
Standards of Medical Care in Diabetes(ADA).

FASTING:YES

FASTING: YES

Lab test performed by:
[facility]
[address] [place] [address]
[place] [address]
Jennifer Rosenthal [facility] SPECIAL CHEMISTRY Segs 75.7 05/07/2018 [facility] SPECIAL CHEMISTRY Basophils # 87 0 - 200 05/07/2018 [facility] SPECIAL CHEMISTRY Eosinophils # 268 15 - 500 05/07/2018 [facility] SPECIAL CHEMISTRY Lymphocytes 13.9 05/07/2018 [facility] SPECIAL CHEMISTRY Eosinophils 4.0 05/07/2018 [facility] SPECIAL CHEMISTRY Monocytes 5.1 05/07/2018 [facility] SPECIAL CHEMISTRY Basophils 1.3 05/07/2018 [facility] SPECIAL CHEMISTRY Globulin 2.7 1.9 - 3.7 05/07/2018 [facility] SPECIAL CHEMISTRY Total Protein 6.7 6.1 - [...] Lvl 4.4 3.5 - 5.3 05/07/2018 [facility] SPECIAL CHEMISTRY B/C Ratio 20 6 - 22 05/07/2018 [facility] SPECIAL CHEMISTRY Sodium Lvl 143 135 - 146 05/07/2018 [facility] SPECIAL CHEMISTRY Chloride Lvl 108 98 - 110 05/07/2018 [facility] SPECIAL CHEMISTRY CO2 26 20 - 32 05/07/2018 [facility] SPECIAL CHEMISTRY Calcium Lvl 10.0 8.6 - 10.3 05/07/2018 [facility] SPECIAL CHEMISTRY Lymphocytes # 931 850 - 3900 05/07/2018 [facility] SPECIAL CHEMISTRY Monocytes # 342 200 - 950 05/07/2018 [facility] SPECIAL CHEMISTRY MPV 10.7 7.5 - 12.5 05/07/2018 [facility] SPECIAL CHEMISTRY Neutrophils # 0436 1500 - 0 05/07/2018 [facility] SPECIAL CHEMISTRY WBC X 10x3 6.7 3.8 - 10.8 05/07/2018 Result Comment:
Lab test performed by:
[facility]
[address] [place] [address]
[place] [address]
Jennifer Rosenthal [facility] SPECIAL CHEMISTRY RBC X 10x6 4.15 4.20 - 5.80 05/07/2018 [facility] SPECIAL CHEMISTRY Hgb 12.3 13.2 - 17.1 05/07/2018 [facility] SPECIAL CHEMISTRY Hct 37.6 38.5 - 50.0 05/07/2018 [facility] SPECIAL CHEMISTRY MCH 29.6 27.0 - 33.0 05/07/2018 [facility] SPECIAL CHEMISTRY MCV 90.6 80.0 - 100.0 05/07/2018 [facility] SPECIAL CHEMISTRY MCHC 32.7 32.0 - 36.0 05/07/2018 [facility] SPECIAL CHEMISTRY RDW 16.4 11.0 - 15.0 05/07/2018 [facility] SPECIAL CHEMISTRY Platelet 240 140 - 400 05/07/2018 [facility] SPECIAL CHEMISTRY eGFR 40 > OR=60 mL/min/1.73m2 05/07/2018 [facility] SPECIAL CHEMISTRY eGFR NON-AFR. MONGOLIAN 35 > OR=60 mL/min/1.73m2 05/07/2018 [facility] SPECIAL CHEMISTRY Creatinine Lvl 1.94 0.70 - 1.25 05/07/2018 Result Comment: For patients >49 years of age, the reference limit
for Creatinine is approximately 13% higher for people
identified as -[place]ian. [facility] SPECIAL CHEMISTRY BUN 39 7 - 25 05/07/2018 [facility] SPECIAL CHEMISTRY Glucose Lvl 82 65 - 99 05/07/2018 Result Comment:
Fasting reference interval

Lab test performed by:
[facility]
[address]
[place] [address]
Jennifer Rosenthal [facility] ELECTROLYTES CO2 33 20 - 31 06/03/2017 [facility] ELECTROLYTES Calcium Lvl 10.4 8.6 - 10.3 06/03/2017 [facility] ELECTROLYTES A/G Ratio 1.1 1.0 - 2.5 06/03/2017 [facility] ELECTROLYTES Bili Total 0.3 0.2 - 1.2 06/03/2017 [facility] ELECTROLYTES Chloride Lvl 103 98 - 110 06/03/2017 [facility] ELECTROLYTES Total Protein 6.9 6.1 - 8.1 06/03/2017 [facility] ELECTROLYTES Globulin 3.3 1.9 - 3.7 06/03/2017 [facility] ELECTROLYTES Albumin Lvl 3.6 3.6 - 5.1 06/03/2017 [facility] ELECTROLYTES Sodium Lvl 139 135 - 146 06/03/2017 [facility] ELECTROLYTES Potassium Lvl 4.3 3.5 - 5.3 06/03/2017 [facility] ELECTROLYTES eGFR 39 > OR=60 mL/min/1.73m2 06/03/2017 [facility] ELECTROLYTES B/C Ratio 16 6 - 22 06/03/2017 [facility] ELECTROLYTES ASPARTATE TRANSAMINASE 16 10 - 35 06/03/2017 [facility] ELECTROLYTES Alk Phos 185 40 - 115 06/03/2017 [facility] ELECTROLYTES ALANINE AMINOTRANSFERASE 16 9 - 46 06/03/2017 [facility] ELECTROLYTES eGFR NON-AFR. MONGOLIAN 34 > OR=60 mL/min/1.73m2 06/03/2017 [facility] ELECTROLYTES BUN 31 7 - 25 06/03/2017 [facility] ELECTROLYTES Creatinine Lvl 1.99 0.70 - 1.25 06/03/2017 Result Comment: For patients >49 years of age, the reference limit
for Creatinine is approximately 13% higher for people
identified as -[place]ian. [facility] ELECTROLYTES Glucose Lvl 88 65 - 99 06/03/2017 Result Comment:
Fasting reference interval

Lab test performed by:
[facility]
[address] [place] [address]
[place] [address]
Jennifer Rosenthal MD [facility] HEMATOLOGY Monocytes 9.2 06/03/2017 [facility] HEMATOLOGY Eosinophils 0.0 06/03/2017 [facility] HEMATOLOGY Basophils 1.8 06/03/2017 [facility] HEMATOLOGY Lymphocytes 18.0 06/03/2017 [facility] HEMATOLOGY Segs 71 06/03/2017 [facility] HEMATOLOGY Lymphocytes # 882 850 - 3900 06/03/2017 [facility] HEMATOLOGY Monocytes # 451 200 - 950 06/03/2017 [facility] HEMATOLOGY Eosinophils # 0 15 - 500 06/03/2017 [facility] HEMATOLOGY Basophils # 88 0 - 200 06/03/2017 [facility] HEMATOLOGY MCV 81.7 80.0 - 100.0 06/03/2017 [facility] HEMATOLOGY Segs-Bands # 5767 4325 - 0253 06/03/2017 [facility] HEMATOLOGY Hct 29.0 38.5 - 50.0 06/03/2017 [facility] HEMATOLOGY MPV 9.9 7.5 - 12.5 06/03/2017 [facility] HEMATOLOGY MCH 25.4 27.0 - 33.0 06/03/2017 [facility] HEMATOLOGY MCHC 31.0 32.0 - 36.0 06/03/2017 [facility] HEMATOLOGY RDW 18.1 11.0 - 15.0 06/03/2017 [facility] HEMATOLOGY Hgb 9.0 13.2 - 17.1 06/03/2017 [facility] HEMATOLOGY WBC X 10x3 4.9 3.8 - 10.8 06/03/2017 Result Comment:
Lab test performed by:
[facility]
[address]
[place] [address]
Jennifer Rosenthal MD [facility] HEMATOLOGY RBC X 10x6 3.55 4.20 - 5.80 06/03/2017 [facility] HEMATOLOGY Platelet 316 140 - 400 06/03/2017 [facility] CHEM PANEL eGFR 33 04/10/2017 Result Comment: [...] should be multiplied by the estimated BMI. [facility] CHEM PANEL CO2 25 24 - 32 04/10/2017 [facility] CHEM PANEL Chloride Lvl 107 95 - 109 04/10/2017 [facility] CHEM PANEL Sodium Lvl 138 135 - 145 04/10/2017 [facility] CHEM PANEL Potassium Lvl 4.3 3.5 - 5.1 04/10/2017 [facility] CHEM PANEL Creatinine Lvl 2.03 0.50 - 1.40 04/10/2017 [facility] CHEM PANEL Glucose Lvl 98 70 - 99 04/10/2017 [facility] CHEM PANEL BUN 28 7 - 22 04/10/2017 [facility] CHEM PANEL Calcium Lvl 10.1 8.5 - 10.5 04/10/2017 [facility] CHEM PANEL AGAP 10.3 10.0 - 20.0 04/10/2017 [facility] HEMATOLOGY PTT 33.7 22.9 - 35.8 04/10/2017 [facility] HEMATOLOGY ACT (TEG) Rapid 121 86 - 118 04/10/2017 [facility] HEMATOLOGY Split Point Rapid 0.6 04/10/2017 [facility] HEMATOLOGY Angle Rapid 80 64 - 80 04/10/2017 [facility] HEMATOLOGY R-time Rapid 0.8 0.4 - 0.7 04/10/2017 [facility] HEMATOLOGY K-time Rapid 0.8 0.6 - 2.3 04/10/2017 [facility] HEMATOLOGY G-value Rapid 14.5 5.0 - 11.6 04/10/2017 [facility] HEMATOLOGY Max Amplitude Rapid 74 52 - 71 04/10/2017 [facility] HEMATOLOGY Estimated % Lysis Rapid 0.0 0.0 - 7.5 04/10/2017 [facility] HEMATOLOGY INR 1.17 0.85 - 1.17 04/10/2017 [facility] HEMATOLOGY PT 15.0 12.0 - 14.7 04/10/2017 [facility] HEMATOLOGY MPV 7.4 7.4 - 10.4 04/10/2017 [facility] HEMATOLOGY RDW 18.3 11.5 - 14.5 04/10/2017 [facility] HEMATOLOGY Platelet 234 133 - 450 04/10/2017 [facility] HEMATOLOGY MCV 81.3 80.0 - 94.0 04/10/2017 [facility] HEMATOLOGY Hct 27.7 42.0 - 54.0 04/10/2017 [facility] HEMATOLOGY RBC 3.41 4.70 - 6.10 04/10/2017 [facility] HEMATOLOGY Hgb 8.8 14.0 - 18.0 04/10/2017 [facility] HEMATOLOGY WBC 5.2 3.7 - 10.4 04/10/2017 [facility] HEMATOLOGY MCH 25.7 27.0 - 31.0 04/10/2017 [facility] HEMATOLOGY MCHC 31.6 32.0 - 36.0 04/10/2017 [facility] HEMATOLOGY Eosinophils 6.1 0.0 - 4.0 04/10/2017 [facility] HEMATOLOGY Basophils 1.8 0.0 - 1.0 04/10/2017 [facility] HEMATOLOGY Lymphocytes 14.5 20.0 - 40.0 04/10/2017 [facility] HEMATOLOGY Monocytes 7.3 2.0 - 12.0 04/10/2017 [facility] HEMATOLOGY Eosinophils # 0.3 0.0 - 0.5 04/10/2017 [facility] HEMATOLOGY Basophils # 0.1 0.0 - 0.2 04/10/2017 [facility] HEMATOLOGY Lymphocytes # 0.7 1.0 - 5.5 04/10/2017 [facility] HEMATOLOGY Monocytes # 0.4 0.0 - 0.8 04/10/2017 [facility] HEMATOLOGY Segs 70.3 45.0 - 75.0 04/10/2017 [facility] HEMATOLOGY Segs-Bands # 3.6 1.5 - 8.1 04/10/2017 [facility] HEMATOLOGY PTT 69.0 22.9 - 35.8 01/31/2017 [facility] HEMATOLOGY INR 1.16 0.85 - 1.17 01/31/2017 [facility] HEMATOLOGY PT 15.0 12.0 - 14.7 01/31/2017 [facility] HEMATOLOGY INR 1.13 0.85 - 1.17 01/31/2017 [facility] HEMATOLOGY PT 14.7 12.0 - 14.7 01/31/2017 [facility] HEMATOLOGY PTT 57.7 22.9 - 35.8 01/31/2017 [facility] CHEM PANEL Phosphorus 2.9 2.5 - 4.5 01/31/2017 [facility] CHEM PANEL eGFR 49 01/31/2017 Result Comment: [...] should be multiplied by the estimated BMI. [facility] CHEM PANEL CO2 25 24 - 32 01/31/2017 [facility] CHEM PANEL Calcium Lvl 10.4 8.5 - 10.5 01/31/2017 [facility] CHEM PANEL Potassium Lvl 4.4 3.5 - 5.1 01/31/2017 [facility] CHEM PANEL Chloride Lvl 105 95 - 109 01/31/2017 [facility] CHEM PANEL Creatinine Lvl 1.47 0.50 - 1.40 01/31/2017 [facility] CHEM PANEL Sodium Lvl 140 135 - 145 01/31/2017 [facility] CHEM PANEL BUN 23 7 - 22 01/31/2017 [facility] CHEM PANEL Glucose Lvl 114 70 - 99 01/31/2017 [facility] CHEM PANEL AGAP 14.4 10.0 - 20.0 01/31/2017 [facility] CHEM PANEL Magnesium Lvl 1.8 1.8 - 2.4 01/31/2017 [facility] HEMATOLOGY PTT 73.7 22.9 - 35.8 01/31/2017 [facility] HEMATOLOGY Monocytes # 0.5 0.0 - 0.8 01/31/2017 [facility] HEMATOLOGY Lymphocytes # 0.9 1.0 - 5.5 01/31/2017 [facility] HEMATOLOGY Segs-Bands # 8.2 1.5 - 8.1 01/31/2017 [facility] HEMATOLOGY Eosinophils 1.6 0.0 - 4.0 01/31/2017 [facility] HEMATOLOGY Basophils 1.3 0.0 - 1.0 01/31/2017 [facility] HEMATOLOGY Monocytes 4.9 2.0 - 12.0 01/31/2017 [facility] HEMATOLOGY Lymphocytes 9.6 20.0 - 40.0 01/31/2017 [facility] HEMATOLOGY Segs 82.6 45.0 - 75.0 01/31/2017 [facility] HEMATOLOGY Eosinophils # 0.2 0.0 - 0.5 01/31/2017 [facility] HEMATOLOGY Basophils # 0.1 0.0 - 0.2 01/31/2017 [facility] HEMATOLOGY RDW 19.0 11.5 - 14.5 01/31/2017 [facility] HEMATOLOGY MCHC 32.3 32.0 - 36.0 01/31/2017 [facility] HEMATOLOGY MPV 8.3 7.4 - 10.4 01/31/2017 [facility] HEMATOLOGY Platelet 282 133 - 450 01/31/2017 [facility] HEMATOLOGY MCH 28.3 27.0 - 31.0 01/31/2017 [facility] HEMATOLOGY Hgb 11.4 14.0 - 18.0 01/31/2017 [facility] HEMATOLOGY MCV 87.7 80.0 - 94.0 01/31/2017 [facility] HEMATOLOGY Hct 35.3 42.0 - 54.0 01/31/2017 [facility] HEMATOLOGY RBC 4.02 4.70 - 6.10 01/31/2017 [facility] HEMATOLOGY WBC 9.9 3.7 - 10.4 01/31/2017 [facility] HEMATOLOGY PT 14.7 12.0 - 14.7 01/30/2017 [facility] HEMATOLOGY INR 1.13 0.85 - 1.17 01/30/2017 [facility] CHEM PANEL Phosphorus 2.8 2.5 - 4.5 01/30/2017 [facility] CHEM PANEL Magnesium Lvl 1.8 1.8 - 2.4 01/30/2017 [facility] ELECTROLYTES AGAP 12.2 10.0 - 20.0 01/30/2017 [facility] ELECTROLYTES eGFR 43 01/30/2017 Result Comment: The [...] should be multiplied by the estimated BMI. [facility] ELECTROLYTES Chloride Lvl 105 95 - 109 01/30/2017 [facility] ELECTROLYTES CO2 26 24 - 32 01/30/2017 [facility] ELECTROLYTES Calcium Lvl 10.0 8.5 - 10.5 01/30/2017 [facility] ELECTROLYTES BUN 30 7 - 22 01/30/2017 [facility] ELECTROLYTES Creatinine Lvl 1.64 0.50 - 1.40 01/30/2017 [facility] ELECTROLYTES Sodium Lvl 139 135 - 145 01/30/2017 [facility] ELECTROLYTES Potassium Lvl 4.2 3.5 - 5.1 01/30/2017 [facility] ELECTROLYTES Glucose Lvl 106 70 - 99 01/30/2017 [facility] HEMATOLOGY Segs 83.7 45.0 - 75.0 01/30/2017 [facility] HEMATOLOGY Segs-Bands # 8.9 1.5 - 8.1 01/30/2017 [facility] HEMATOLOGY Basophils 1.0 0.0 - 1.0 01/30/2017 [facility] HEMATOLOGY Lymphocytes # 1.0 1.0 - 5.5 01/30/2017 [facility] HEMATOLOGY Monocytes 4.5 2.0 - 12.0 01/30/2017 [facility] HEMATOLOGY Lymphocytes 9.3 20.0 - 40.0 01/30/2017 [facility] HEMATOLOGY Eosinophils 1.5 0.0 - 4.0 01/30/2017 [facility] HEMATOLOGY Basophils # 0.1 0.0 - 0.2 01/30/2017 [facility] HEMATOLOGY Eosinophils # 0.2 0.0 - 0.5 01/30/2017 [facility] HEMATOLOGY Monocytes # 0.5 0.0 - 0.8 01/30/2017 [facility] HEMATOLOGY RDW 19.2 11.5 - 14.5 01/30/2017 [facility] HEMATOLOGY MCHC 33.1 32.0 - 36.0 01/30/2017 [facility] HEMATOLOGY MCH 28.9 27.0 - 31.0 01/30/2017 [facility] HEMATOLOGY MCV 87.3 80.0 - 94.0 01/30/2017 [facility] HEMATOLOGY MPV 8.2 7.4 - 10.4 01/30/2017 [facility] HEMATOLOGY Platelet 258 133 - 450 01/30/2017 [facility] HEMATOLOGY Hgb 12.0 14.0 - 18.0 01/30/2017 [facility] HEMATOLOGY WBC 10.6 3.7 - 10.4 01/30/2017 [facility] HEMATOLOGY Hct 36.1 42.0 - 54.0 01/30/2017 [facility] HEMATOLOGY RBC 4.14 4.70 - 6.10 01/30/2017 [facility] TOXICOLOGY Vanco Tr TND 0900 01/29/2017 [facility] TOXICOLOGY Vanco Tr 19.9 01/29/2017 [facility] CHEM PANEL Magnesium Lvl 1.8 1.8 - 2.4 01/29/2017 [facility] CHEM PANEL BUN 32 7 - 22 01/29/2017 [facility] CHEM PANEL Glucose Lvl 118 70 - 99 01/29/2017 [facility] CHEM PANEL Creatinine Lvl 1.46 0.50 - 1.40 01/29/2017 [facility] CHEM PANEL Potassium Lvl 4.1 3.5 - 5.1 01/29/2017 [facility] CHEM PANEL Calcium Lvl 10.6 8.5 - 10.5 01/29/2017 [facility] CHEM PANEL CO2 26 24 - 32 01/29/2017 [facility] CHEM PANEL Sodium Lvl 137 135 - 145 01/29/2017 [facility] CHEM PANEL Chloride Lvl 104 95 - 109 01/29/2017 [facility] CHEM PANEL eGFR 49 01/29/2017 Result Comment: [...] should be multiplied by the estimated BMI. [facility] CHEM PANEL AGAP 11.1 10.0 - 20.0 01/29/2017 [facility] CHEM PANEL Phosphorus 3.0 2.5 - 4.5 01/29/2017 [facility] HEMATOLOGY MPV 8.3 7.4 - 10.4 01/29/2017 [facility] HEMATOLOGY Platelet 277 133 - 450 01/29/2017 [facility] HEMATOLOGY RDW 19.5 11.5 - 14.5 01/29/2017 [facility] HEMATOLOGY MCHC 31.9 32.0 - 36.0 01/29/2017 [facility] HEMATOLOGY MCH 28.0 27.0 - 31.0 01/29/2017 [facility] HEMATOLOGY MCV 87.7 80.0 - 94.0 01/29/2017 [facility] HEMATOLOGY Hgb 11.3 14.0 - 18.0 01/29/2017 [facility] HEMATOLOGY Hct 35.3 42.0 - 54.0 01/29/2017 [facility] HEMATOLOGY RBC 4.02 4.70 - 6.10 01/29/2017 [facility] HEMATOLOGY WBC 9.9 3.7 - 10.4 01/29/2017 [facility] HEMATOLOGY Basophils # 0.1 0.0 - 0.2 01/29/2017 [facility] HEMATOLOGY Lymphocytes # 1.1 1.0 - 5.5 01/29/2017 [facility] HEMATOLOGY Segs-Bands # 8.1 1.5 - 8.1 01/29/2017 [facility] HEMATOLOGY Monocytes # 0.5 0.0 - 0.8 01/29/2017 [facility] HEMATOLOGY Eosinophils # 0.1 0.0 - 0.5 01/29/2017 [facility] HEMATOLOGY Basophils 0.8 0.0 - 1.0 01/29/2017 [facility] HEMATOLOGY Lymphocytes 10.8 20.0 - 40.0 01/29/2017 [facility] HEMATOLOGY Monocytes 4.7 2.0 - 12.0 01/29/2017 [facility] HEMATOLOGY Eosinophils 1.5 0.0 - 4.0 01/29/2017 [facility] HEMATOLOGY Segs 82.2 45.0 - 75.0 01/29/2017 [facility] TOXICOLOGY Vanco Tr TND 1930 01/28/2017 [facility] TOXICOLOGY Vanco Tr 19.4 01/28/2017 [facility] CARDIAC ENZYMES Troponin-T <0.010 0.000 - 0.100 01/26/2017 [facility] CARDIAC ENZYMES Total CK 37 12 - 191 01/26/2017 [facility] CHEM PANEL Lactic Acid Lvl 1.2 0.5 - 2.2 01/26/2017 [facility] PARATHYROID PROFILE Ca Norm WB 1.48 1.05 - 1.25 01/26/2017 [facility] PARATHYROID PROFILE Ca Ion WB 1.47 1.05 - 1.25 01/26/2017 [facility] TOXICOLOGY Vanco Tr TND 1930 01/26/2017 [facility] TOXICOLOGY Vanco Tr 21.2 01/26/2017 [facility] CHEM PANEL Lactic Acid Lvl 1.2 0.5 - 2.2 01/25/2017 [facility] CARDIAC ENZYMES Total CK 40 12 - 191 01/24/2017 [facility] CHEM PANEL Lactic Acid Lvl 0.8 0.5 - 2.2 01/24/2017 [facility] HEMATOLOGY Anisocyte 1+ *ABN* (01/24/17 12:52 AM) None Seen 01/24/2017 [facility] HEMATOLOGY Plt Morph Normal (01/24/17 12:52 AM) 01/24/2017 [facility] HEMATOLOGY RBC Morph Normal (01/23/17 11:39 AM) 01/23/2017 [facility] HEMATOLOGY Plt Morph Normal (01/23/17 11:39 AM) 01/23/2017 [facility] URINE AND STOOL UA Urobilinogen <=1.0 mg/dL 0.1 - 1.0 01/22/2017 [facility] URINE AND STOOL UA Nitrite Negative (01/22/17 1:02 PM) Negative 01/22/2017 [facility] URINE AND STOOL UA Mucus Few /LPF None Seen /LPF 01/22/2017 [facility] URINE AND STOOL UA Blood Trace *ABN* (01/22/17 1:02 PM) Negative 01/22/2017 [facility] URINE AND STOOL UA Bili Negative *NA* (01/22/17 1:02 PM) Negative 01/22/2017 [facility] URINE AND STOOL UA Leuk Est Negative (01/22/17 1:02 PM) Negative 01/22/2017 [facility] URINE AND STOOL UA WBC <1 0 - 5 01/22/2017 [facility] URINE AND STOOL UA RBC <1 0 - 2 01/22/2017 [facility] URINE AND STOOL UA Glucose 300 mg/dL Negative mg/dL 01/22/2017 [facility] URINE AND STOOL UA Ketones Negative mg/dL Negative mg/dL 01/22/2017 [facility] URINE AND STOOL UA pH 5.5 5.0 - 8.0 01/22/2017 [facility] URINE AND STOOL UA Protein 50 mg/dL Negative mg/dL 01/22/2017 [facility] URINE AND STOOL UA Spec Grav 1.011 <=1.030 01/22/2017 [facility] URINE AND STOOL UA Turbidity Clear (01/22/17 1:02 PM) Clear 01/22/2017 [facility] URINE AND STOOL UA Color Yellow *NA* (01/22/17 1:02 PM) Yellow 01/22/2017 [facility] URINE AND STOOL UA Sq Epi None Seen 01/22/2017 [facility] TOXICOLOGY Vanco Lvl 20.5 01/22/2017 [facility] CHEM PANEL A/G Ratio 0.7 0.7 - 1.6 01/21/2017 [facility] CHEM PANEL Globulin 3.4 2.7 - 4.2 01/21/2017 [facility] CHEM PANEL B/C Ratio 30 6 - 25 01/21/2017 [facility] CHEM PANEL ALT 29 0 - 65 01/21/2017 [facility] CHEM PANEL AST 24 0 - 37 01/21/2017 [facility] CHEM PANEL Bili Total 0.4 0.2 - 1.3 01/21/2017 [facility] CHEM PANEL Total Protein 5.9 6.4 - 8.4 01/21/2017 [facility] CHEM PANEL Albumin Lvl 2.5 3.5 - 5.0 01/21/2017 [facility] CHEM PANEL Alk Phos 89 39 - 136 01/21/2017 [facility] HEMATOLOGY Plt Morph Normal (01/21/17 8:51 AM) 01/21/2017 [facility] HEMATOLOGY RBC Morph Normal (01/21/17 8:51 AM) 01/21/2017 [facility] TOXICOLOGY Vanco Lvl 4.9 01/21/2017 [facility] SPECIAL CHEMISTRY Hgb A1C 7.1 <=5.6 % 01/20/2017 [facility] URINE AND STOOL UA pH 5.5 5.0 - 8.0 01/19/2017 [facility] URINE AND STOOL UA Protein 30 mg/dL Negative mg/dL 01/19/2017 [facility] URINE AND STOOL UA Turbidity Clear (01/19/17 1:21 PM) Clear 01/19/2017 [facility] URINE AND STOOL UA Spec Grav 1.015 <=1.030 01/19/2017 [facility] URINE AND STOOL UA Color Yellow *NA* (01/19/17 1:21 PM) Yellow 01/19/2017 [facility] URINE AND STOOL UA Leuk Est Negative (01/19/17 1:21 PM) Negative 01/19/2017 [facility] URINE AND STOOL UA Nitrite Negative (01/19/17 1:21 PM) Negative 01/19/2017 [facility] URINE AND STOOL UA Ketones Negative *NA* (01/19/17 1:21 PM) Negative 01/19/2017 [facility] URINE AND STOOL UA Bili Negative *NA* (01/19/17 1:21 PM) Negative 01/19/2017 [facility] URINE AND STOOL UA Glucose Negative (01/19/17 1:21 PM) Negative 01/19/2017 [facility] URINE AND STOOL UA Blood Small *ABN* (01/19/17 1:21 PM) Negative 01/19/2017 [facility] URINE AND STOOL UA Urobilinogen 0.2 0.1 - 1.0 01/19/2017 [facility] URINE AND STOOL UA WBC 0-2 /HPF None Seen /HPF 01/19/2017 [facility] URINE AND STOOL UA Sq Epi Occasional /LPF Few /LPF 01/19/2017 [facility] URINE AND STOOL UA RBC 0-2 /HPF 0 - 2 01/19/2017 [facility] URINE AND STOOL UA Bacteria Occasional /HPF None Seen /HPF 01/19/2017 [facility] BLOOD BANK RESULTS ABO/Rh O NEG 01/19/2017 [facility] BLOOD BANK RESULTS Antibody Scrn Negative (01/19/17 1:15 PM) 01/19/2017 [facility] HEMATOLOGY Sed Rate 50 0 - 15 01/19/2017 [facility] IMMUNOLOGY C-REACTIVE PROTEIN 296.0 <=2.9 mg/L 01/19/2017 [facility] CARDIAC ENZYMES CK MB 1.9 0.5 - 3.6 01/19/2017 [facility] CARDIAC ENZYMES Troponin-I 0.04 0.00 - 0.40 01/19/2017 [facility] CARDIAC ENZYMES Total CK 434 12 - 191 01/19/2017 [facility] CARDIAC ENZYMES CK MB Index 0.4 0.0 - 2.5 01/19/2017 [facility] CHEM PANEL A/G Ratio 0.8 0.7 - 1.6 01/19/2017 [facility] CHEM PANEL Globulin 4.6 2.7 - 4.2 01/19/2017 [facility] CHEM PANEL B/C Ratio 23 6 - 25 01/19/2017 [facility] CHEM PANEL ALT 29 0 - 65 01/19/2017 [facility] CHEM PANEL Albumin Lvl 3.5 3.5 - 5.0 01/19/2017 [facility] CHEM PANEL Total Protein 8.1 6.4 - 8.4 01/19/2017 [facility] CHEM PANEL Alk Phos 108 39 - 136 01/19/2017 [facility] CHEM PANEL Bili Total 1.0 0.2 - 1.3 01/19/2017 [facility] CHEM PANEL AST 35 0 - 37 01/19/2017 [facility] CHEM PANEL Procalcitonin Lvl 6.45 0.00 - 0.10 01/19/2017 Result Comment: CRITICAL RESULT CALLED TO WEN Mohamud) AT 01/19/2017 16:38 BY SXP. READ BACK OK. [facility] CARDIAC ENZYMES Total CK 223 44 - 196 10/08/2016 Result Comment:
Lab test performed by:
[facility]
[address] [place] [address]
[place] [address]
Jennifer Rosenthal MD [facility] CHEM PANEL ASPARTATE TRANSAMINASE 29 10 - 35 10/08/2016 [facility] CHEM PANEL Albumin Lvl 4.0 3.6 - 5.1 10/08/2016 [facility] CHEM PANEL Bili Total 0.5 0.2 - 1.2 10/08/2016 [facility] CHEM PANEL Globulin 2.9 1.9 - 3.7 10/08/2016 [facility] CHEM PANEL Alk Phos 117 40 - 115 10/08/2016 [facility] CHEM PANEL A/G Ratio 1.4 1.0 - 2.5 10/08/2016 [facility] CHEM PANEL ALANINE AMINOTRANSFERASE 30 9 - 46 10/08/[facility] CHEM PANEL Sodium Lvl 136 135 - 146 10/08/2016 [facility] CHEM PANEL B/C Ratio 23 6 - 22 10/08/2016 [facility] CHEM PANEL Potassium Lvl 3.2 3.5 - 5.3 10/08/2016 [facility] CHEM PANEL Calcium Lvl 10.7 8.6 - 10.3 10/08/2016 [facility] CHEM PANEL CO2 34 20 - 31 10/08/2016 [facility] CHEM PANEL Chloride Lvl 92 98 - 110 10/08/2016 [facility] CHEM PANEL Total Protein 6.9 6.1 - 8.1 10/08/2016 [facility] CHEM PANEL Glucose Lvl 96 65 - 99 10/08/2016 Result Comment:
Fasting reference interval

Lab test performed by:
[facility]
[address] [place] [address]
[place] [address]
Jennifer Rosenthal MD Medical [facility] CHEM PANEL BUN 61 7 - 25 10/08/2016 [facility] CHEM PANEL eGFR 28 > OR=60 mL/min/1.73m2 10/08/2016 [facility] CHEM PANEL eGFR NON-AFR. MONGOLIAN 24 > OR=60 mL/min/1.73m2 10/08/2016 [facility] CHEM PANEL Creatinine Lvl 2.63 0.70 - 1.25 10/08/2016 Result Comment: For patients >49 years of age, the reference limit
for Creatinine is approximately 13% higher for people
identified as -[place]ian. [facility] HEMATOLOGY Basophils 0.9 10/08/2016 [facility] HEMATOLOGY Monocytes 5.8 10/08/2016 [facility] HEMATOLOGY Eosinophils 4.9 10/08/2016 [facility] HEMATOLOGY Segs 71.0 10/08/2016 [facility] HEMATOLOGY Basophils # 71 0 - 200 10/08/2016 [facility] HEMATOLOGY Eosinophils # 387 15 - 500 10/08/2016 [facility] HEMATOLOGY Lymphocytes 17.4 10/08/2016 [facility] HEMATOLOGY Lymphocytes # 1375 721 - 6880 10/08/2016 [facility] HEMATOLOGY Monocytes # 458 200 - 950 10/08/2016 [facility] HEMATOLOGY MPV 8.1 7.5 - 12.5 10/08/2016 [facility] HEMATOLOGY Segs-Bands # 2408 5738 - 4764 10/08/2016 [facility] HEMATOLOGY RDW 17.7 11.0 - 15.0 10/08/2016 [facility] HEMATOLOGY Platelet 214 140 - 400 10/08/2016 [facility] HEMATOLOGY MCH 29.0 27.0 - 33.0 10/08/2016 [facility] HEMATOLOGY MCHC 32.5 32.0 - 36.0 10/08/2016 [facility] HEMATOLOGY Hct 42.8 38.5 - 50.0 10/08/2016 [facility] HEMATOLOGY Hgb 13.9 13.2 - 17.1 10/08/2016 [facility] HEMATOLOGY MCV 89.1 80.0 - 100.0 10/08/2016 [facility] HEMATOLOGY WBC X 10x3 7.9 3.8 - 10.8 10/08/2016 Result Comment:
Lab test performed by:
[facility]
[address] [place] [address]
[place] [address]
Jennifer Rosenthal MD [facility] HEMATOLOGY RBC X 10x6 4.81 4.20 - 5.80 10/08/2016 [facility] Pathology Reports No Data Provided for This [...] increased involvement of the right insula. 02/02/2019 [facility] Brain wo contrast CT EXAM: CT BRAIN [...] significant infarct extension or hemorrhagic transformation. 01/28/2019 [facility] Abdomen AP DX EXAM: XR ABDOMEN 1 [...] Dobbhoff tube to optimal postpyloric positioning. 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 Scattered chronic ischemic changes. 01/26/2019 [facility] Ext Lower Venous Doppler Bilat US EXAM: [...] thrombus in the distal popliteal vein. 01/26/2019 [facility] Angiogram cervical artery bilateral VR PROCEDURE: 1. [...] post IVC filter removal. REFERRING PROVIDER: Gabo Morris MD ATTENDING: Nikhil Archer MD was present [...] and a 9-sheath was placed. A 9- Swazi Jennifer balloon guide catheter over 5-Swazi Vert catheter was coaxially advanced over an introducer over a 0.038 Terumo Glidewire through the sheath into the aorta arch to select the right common carotid artery. 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 TECHNIQUE: Axial CT [...] Dr. Winnie Birmingham at 1546 hours. 01/26/2019 [facility] Chest 1view DX EXAM: XR CHEST 1 VIEW DATE: 01/26/2019 5:00 CDT INDICATION: CVA - CVA. TECHNIQUE: Chest 1 view FINDINGS: Comparison is made to 10/30/2018. Cardiomediastinal silhouette is prominent but unchanged. The lungs are low in volume, with elevation of the right hemidiaphragm. There is mild bilateral lower lobe platelike atelectasis. No pleural effusions. IMPRESSION: Mild bilateral lower lobe platelike atelectasis. 01/26/2019 [facility] Tibia fibula series DX EXAM: XR RIGHT [...] reported bleeding wounds in this region. 10/30/2018 [facility] Foot series DX EXAM: XR RIGHT FOOT [...] reported bleeding wounds in this region. 10/30/2018 [facility] Ext Lower Venous Doppler Bilat US EXAM: [...] telephone at 1340 hours on 10/30/2018. 10/30/2018 [facility] Chest 1view DX EXAM: XR CHEST 1 [...] removed or pulled back out of the [id number] when compared to the prior study dated 08/06/2018. No PICC line is identified on this radiograph. 2. Lungs are low in volume with right lower lobe platelike atelectasis. 10/30/2018 [facility] Chest 1 v for Placement DX EXAM: XR CHEST 1 VIEW DATE: 08/06/2018 15:02 ASSOCIATE PROFESSOR OF PHYSICS INDICATION: Line Placement - Chest 1 view [...] deformities. Correlation for focal pain recommended. 08/06/2018 [facility] Guided Needle BX/Asp/Inj/NeedLoc US EXAM: ULTRASOUND-GUIDED RIGHT ANKLE ASPIRATION DATE: 08/01/2018 14:19 ASSOCIATE PROFESSOR OF PHYSICS INDICATION: - I\\T\\D of RLE abscess COMPARISON: [...] the tibiotalar joint yielded no fluid. 08/01/2018 [facility] Foot wo contrast MRI EXAM: MR RIGHT FOOT WITHOUT CONTRAST DATE: 07/30/2018 10:24 ASSOCIATE PROFESSOR OF PHYSICS INDICATION: - to evaluate for osteomyelitis and [...] tracking along the medial plantar midfoot/hindfoot. 07/30/2018 [facility] Angiogram leg unilateral VR PROCEDURE: Lower extremity [...] set with 21 gauge needle Aortography A 5-Swazi Omni Flush catheter was advanced through the sheath and into the abdominal aorta above the level of the renal arteries. Contrast was injected and aortogram performed in the AP projection. Findings: Patent abdominal aorta, without stenosis. Nonselective pelvic angiography The flush catheter was retracted to the distal common aorta. Contrast was injected and nonselective pelvic arteriograms were performed in the NICHOLE and NIGERIEN projections. Findings: Patent abdominal aorta, without stenosis. [...] agree with the report as written. 07/30/2018 [facility] Vascular/Interventional Radiology Consult PROCEDURE: Lower extremity angiography [...] set with 21 gauge needle Aortography A 5-Swazi Omni Flush catheter was advanced through the sheath and into the abdominal aorta above the level of the renal arteries. Contrast was injected and aortogram performed in the AP projection. Findings: Patent abdominal aorta, without stenosis. Nonselective pelvic angiography The flush catheter was retracted to the distal common aorta. Contrast was injected and nonselective pelvic arteriograms were performed in the NICHOLE and NIGERIEN projections. Findings: Patent abdominal aorta, without stenosis. [...] agree with the report as written. 07/29/2018 [facility] Ext Lower Arterial Doppler bilat US EXAM: [...] seen along the wall of the right SHAMPOOER, right SFA, and right popliteal artery. Additional calcified atherosclerotic disease is also seen along the left SHAMPOOER wall. Right Extremity Waveforms: Common Femoral Artery: [...] flow throughout the left lower extremity. 07/28/2018 [facility] Ext Lower Venous Doppler Bilat US EXAM: [...] of lower extremity deep vein thrombosis. 07/28/2018 [facility] Tibia fibula series DX EXAM: XR RIGHT [...] hours on 07/28/2018 over the phone. 07/28/2018 [facility] Foot series DX EXAM: XR RIGHT FOOT [...] osteomyelitis with or without Charcot joint. 07/28/2018 [facility] Ext Lower Venous Doppler Unilat US EXAM: US RIGHT LOWER EXTREMITY VENOUS DOPPLER DATE: 06/06/2017 1:10 PM ASSOCIATE PROFESSOR OF PHYSICS INDICATION: - I82.409 Acute embolism and thrombosis [...] and distal right greater saphenous vein. 06/06/2017 [facility] Lower Venous Doppler Unilat US EXAM: US [...] to emergency center. Patient acknowledged understanding. 04/10/2017 [facility] Fib wo contrast MRI EXAM: MR RIGHT [...] anterior and peroneal compartments, suggesting myositis. 01/31/2017 [facility] Chest 1 v for Placement DX EXAM: [...] clear IMPRESSION: New right PICC line. 01/30/2017 [facility] Chest 2 views DX EXAM: XR CHEST [...] IMPRESSION: Bilateral lower lobe subsegmental atelectasis. 01/25/2017 [facility] Retroperitoneal Complete US EXAM: US RETROPERITONEAL COMPLETE [...] is absent. Left kidney is hypertrophic. 01/19/2017 [facility] Ext Lower Venous Doppler Bilat US EXAM: [...] Normal. No deep venous thrombosis (DVT). 01/19/2017 [facility] Tibia fibula series DX EXAM: XR RIGHT [...] extremity swelling and edema, this may be dairy supplies sales representative of underlying osteomyelitis. Degenerative changes are also noted at the right midfoot. IMPRESSION: Periosteal reaction of the lateral aspect of the right tibia and medial aspect of the right fibula. Given the concomitant findings of right lower extremity cellulitis, this may be dairy supplies sales representative of underlying osteomyelitis. Magnetic resonance imaging may be obtained for confirmation. 01/19/2017 [facility] Chest 1view DX EXAM: XR CHEST 1 [...] right glenohumeral joint are partially imaged. 01/19/2017 [facility] Chest 2 views DX EXAM: Chest 2 [...] Source Temperature Oral (F) 97.6 F 02/05/2019 [facility] Heart Rate 53 02/05/2019 [facility] Respitory Rate 18 02/05/2019 [facility] Systolic (mm Hg) 114 02/05/2019 [facility] Diastolic (mm Hg) 63 02/05/2019 [facility] Temperature Oral (F) 98.2 F 02/05/2019 [facility] Heart Rate 66 02/05/2019 [facility] Respitory Rate 18 02/05/2019 [facility] Systolic (mm Hg) 105 02/05/2019 [facility] Diastolic (mm Hg) 58 02/05/2019 [facility] Systolic (mm Hg) 105 02/05/2019 [facility] Diastolic (mm Hg) 65 02/05/2019 [facility] Heart Rate 50 02/05/2019 [facility] Temperature Oral (F) 98.5 F 02/05/2019 [facility] Respitory Rate 18 02/05/2019 [facility] Height 198.12 cm 01/26/2019 [facility] Weight 95.007 01/26/2019 [facility] BMI Calculated 24.2 01/26/2019 [facility] Height 198.12 cm 01/26/2019 [facility] Weight 111.591 01/26/2019 [facility] BMI Calculated 28.43 01/26/2019 [facility] Height 190.5 cm 01/23/2019 [facility] Weight 100 01/23/2019 [facility] BMI Calculated 27.56 01/23/2019 [facility] Systolic (mm Hg) 138 11/07/2018 [facility] Diastolic (mm Hg) 76 11/07/2018 [facility] Respitory Rate 17 11/07/2018 [facility] Systolic (mm Hg) 132 11/07/2018 [facility] Diastolic (mm Hg) 84 11/07/2018 [facility] Respitory Rate 18 11/07/2018 [facility] Systolic (mm Hg) 144 11/07/2018 [facility] Diastolic (mm Hg) 84 11/07/2018 [facility] Respitory Rate 16 11/07/2018 [facility] Temperature Oral (F) 98.4 F 11/07/2018 [facility] Heart Rate 78 11/07/2018 [facility] Heart Rate 73 11/07/2018 [facility] Temperature Oral (F) 98.3 F 11/07/2018 [facility] Heart Rate 62 11/07/2018 [facility] Temperature Oral (F) 98 F 11/07/2018 [facility] BMI Calculated 26.24 10/30/2018 [facility] Weight 103.009 10/30/2018 [facility] Height 198.12 cm 10/30/2018 [facility] Height 198.12 cm 09/08/2018 [facility] BMI Calculated 29.41 09/08/2018 [facility] Weight 115.455 09/08/2018 [facility] Heart Rate 99 09/08/2018 [facility] Respitory Rate 16 09/08/2018 [facility] Systolic (mm Hg) 116 09/08/2018 [facility] Diastolic (mm Hg) 60 09/08/2018 [facility] Heart Rate 86 08/06/2018 [facility] Respitory Rate 20 08/06/2018 [facility] Systolic (mm Hg) 125 08/06/2018 [facility] Diastolic (mm Hg) 67 08/06/2018 [facility] Temperature Oral (F) 98.0 F 08/06/2018 [facility] Respitory Rate 20 08/06/2018 [facility] Systolic (mm Hg) 131 08/06/2018 [facility] Diastolic (mm Hg) 73 08/06/2018 [facility] Temperature Oral (F) 97.7 F 08/06/2018 [facility] Heart Rate 82 08/06/2018 [facility] Respitory Rate 20 08/06/2018 [facility] Heart Rate 90 08/06/2018 [facility] Systolic (mm Hg) 161 08/06/2018 [facility] Diastolic (mm Hg) 78 08/06/2018 [facility] Temperature Oral (F) 97.6 F 08/06/2018 [facility] Weight 115.2 08/01/2018 [facility] Height 198.12 cm 08/01/2018 [facility] Height 198.12 cm 07/30/2018 [facility] Weight 115.2 07/30/2018 [facility] BMI Calculated 29.35 07/29/2018 [facility] Weight 115.2 07/29/2018 [facility] Height 198.12 cm 07/29/2018 [facility] BMI Calculated 30.11 07/29/2018 [facility] BMI Calculated 30.46 07/08/2018 [facility] Weight [...] 06/03/2017 [facility] Respitory Rate 16 04/11/2017 [facility] Temperature Oral (F) 96.0 F 04/11/2017 [facility] Heart Rate 53 04/11/2017 [facility] Systolic (mm Hg) 130 04/11/2017 [facility] Diastolic (mm Hg) 72 04/11/2017 [facility] Systolic (mm Hg) 132 04/11/2017 [facility] Diastolic (mm Hg) 70 04/11/2017 [facility] Temperature Oral (F) 96.8 F 04/11/2017 [facility] Heart Rate 56 04/11/2017 [facility] Respitory Rate 16 04/11/2017 [facility] Respitory Rate 18 04/11/2017 [facility] Systolic (mm Hg) 161 04/11/2017 [facility] Diastolic (mm Hg) 87 04/11/2017 [facility] Heart Rate 78 04/11/2017 [facility] Temperature Oral (F) 96.0 F 04/11/2017 [facility] Weight 118.182 04/11/2017 [facility] BMI Calculated 30.11 04/11/2017 [facility] Height 198.12 cm 04/11/2017 [facility] BMI Calculated 30.11 04/10/2017 [facility] Weight 118.182 04/10/2017 [facility] Height 198.12 cm 04/10/2017 [facility] Systolic (mm Hg) 174 01/31/2017 [facility] Diastolic (mm Hg) 80 01/31/2017 [facility] Respitory Rate 28 01/31/2017 [facility] Systolic (mm Hg) 157 01/31/2017 [facility] Diastolic (mm Hg) 86 01/31/2017 [facility] Respitory Rate 24 01/31/2017 [facility] Temperature Oral (F) 98.7 F 01/31/2017 [facility] Respitory Rate 29 01/31/2017 [facility] Systolic (mm Hg) 164 01/31/2017 [facility] Diastolic (mm Hg) 75 01/31/2017 [facility] Heart Rate 68 01/31/2017 [facility] Heart Rate 56 01/31/2017 [facility] Temperature Oral (F) 97.0 F 01/30/2017 [facility] Temperature Oral (F) 97.8 F 01/30/2017 [facility] Weight 125 01/20/2017 [facility] Weight 125 01/19/2017 [facility] Height 198.12 cm 01/19/2017 [facility] Height 198.12 cm 01/19/2017 [facility] Weight 125 01/19/2017 [facility] Heart Rate 132 01/19/2017 [facility] BMI Calculated 31.85 01/19/2017 [facility] Height 198.12 cm 01/19/2017 [facility] Encounters Location Location Details Encounter Type Encounter Number Reason For Visit Attending Provider ADM Date DC Date Status Source Outpatient [id number] NIC PAZ 01/03/2015 [facility] Out[facility] [id number] NIC PAZ 03/17/2015 [facility] Out[facility] [id number] NIC PAZ 06/08/2015 [facility] Out[facility] [id number] NIC PAZ 09/28/2015 [facility] Outpatient [id number] NIC PAZ 11/08/2015 [facility] Outpatient [id number] NIC PAZ 12/06/2015 [facility] [id number] NIC PAZ 04/09/2016 [facility] [id number] NIC PAZ 07/09/2016 [facility] [id number] NIC PAZ 10/08/2016 [facility] [place] [facility] [id number] Nic Paz 10/17/2016 10/18/2016 [facility] [place] Outpatient [id number] NIC PAZ 12/11/2016 Active [facility] Inpatient [id number] Saeid Arash 01/19/2017 01/31/2017 [facility] Outpatient [id number] NIC PAZ 03/13/2017 Active [facility] Outpatient [id number] NIC PAZ 03/22/2017 Active [facility] - [place] [facility] [id number] Brenton Wilcox 04/10/2017 04/11/2017 [facility] [id number] Akankshamariam Arash 04/10/2017 04/11/2017 [facility] Outpatient [id number] NIC PAZ 04/24/2017 Active [facility] Primary [facility] Phone Message [id number] 05/06/2017 05/08/2017 [facility] Phone Message [id number] 05/13/2017 05/15/2017 [facility] Phone Message [id number] 05/14/2017 05/16/2017 [facility] Outpatient [id number] NIC PAZ 06/03/2017 Active [facility] [place] [facility]patient [id number] Nic Paz 06/03/2017 06/04/2017 [facility] Outpatient [facility] - [place] [facility] [id number] Nic Paz 06/06/2017 06/07/2017 [facility] [place] Phone Message [id number] 06/10/2017 06/12/2017 [facility] Outpatient [id number] NIC PAZ 2017 [facility] [place] [facility] [id number] Nic Paz 2017 08/09/2017 [facility] Outpatient [id number] NIC PAZ 10/09/2017 [facility] [place] Ambulatory Pre-Reg [id number] Nic Paz 10/09/2017 10/09/2017 [facility] [place] Phone Message [id number] 12/04/2017 12/06/2017 [facility] Outpatient [id number] NIC PAZ 01/29/2018 Active [facility] Primary Care [facility] [place] Outpatient [id number] Nic Paz 01/29/2018 01/30/2018 [facility] Primary Care [facility] [place] Phone Message [id number] 02/13/2018 02/15/2018 [facility] Outpatient [id number] NIC PAZ 04/01/2018 Active [facility] Primary Care [facility] [place] Ambulatory Pre-Reg [id number] Nic Paz 04/01/2018 04/01/2018 [facility] Outpatient [id number] NIC PAZ 05/07/2018 Active [facility] Primary Care [facility] [place] Outpatient [id number] Nic Paz 05/07/2018 05/08/2018 [facility] Outpatient [id number] NIC PAZ 07/08/2018 Active [facility] Primary Care [facility] [place] Outpatient [id number] Nic Paz 07/08/2018 07/09/2018 [facility] Inpatient [id number] Elizabeth Bonnie 07/29/2018 08/07/2018 [facility] Primary Care [facility] [place] Phone Message [id number] 08/06/2018 2018 [facility] Outpatient [id number] NIC PAZ 09/08/2018 Active [facility] Primary Care [facility] [place] Outpatient [id number] Nic Paz 09/08/2018 09/09/2018 [facility] Outpatient [id number] NIC PAZ 10/06/2018 Active [facility] Primary Care [facility] [place] Ambulatory Pre-Reg [id number] Nic Paz 10/06/2018 10/06/2018 [facility] Inpatient [id number] Nic Paz 10/30/2018 11/07/2018 [facility] Inpatient [id number] Maria Fernanda Macedo 01/26/2019 02/05/2019 [facility] Procedures Procedure Code Date Perfomer Comments Source Selective catheter placement, internal carotid artery, unilateral, with angiography of the ipsilateral intracranial carotid circulation and all associated radiological supervision and interpretation, includes angiography [place] [id number] 01/26/2019 [facility] Primary percutaneous transluminal mechanical thrombectomy, noncoronary, non-intracranial, arterial or arterial bypass graft, including fluoroscopic guidance and intraprocedural pharmacological thrombolytic injection(s); initial vessel [id number] 01/26/2019 [facility] Selective catheter placement, common carotid or innominate artery, unilateral, any approach, with angiography of the ipsilateral extracranial carotid circulation and all associated radiological supervision and interpretation, includes angiography of the c [id number] 01/26/2019 [facility] Amputation below-knee [id number] 10/22/2018 [facility] Insertion of PICC (peripherally inserted central catheter) [id number] 08/07/2018 [facility] Arthrocentesis, aspiration and/or injection, major joint or bursa (eg, shoulder, hip, knee, subacromial bursa); without ultrasound guidance 08/01/2018 [facility] Vascular surgery procedure<sup>1</sup> [id number] 06/24/2014 Bilateral legs for lymphedema [facility] Colonoscopy [id number] 06/24/2013 [facility] Debridement<sup>2</sup> [id number] 06/24/2009 of the right foot [facility] Nephrectomy [id number] 11/22/2002 [facility], JESSE Guerrier, JESSE [place] Assessment and Plan Assessment and Plan Date Source Extracted from:Title: Stroke Author: Cara Saldaña NP Date: 02/04/19 [place] DISCHARGE SUMMARY Date of Admission: 01/26/19 [...] for urinary retention, IPR- Referral sent to [facility] on 01/30 02/01: Patient more confused overnight, [...] see HMR Discharge: Rehab Follow up: - [place] [facility]. Clinic #[phone] in 4 weeks - PCP in 1-2 [...] prescriptions, and discussing discharge instructions with patient. [id number] Extracted from:Title: Stroke Author: Cara Saldaña NP [...] for urinary retention, IPR- Referral sent to [facility] on 01/30 02/01: Patient more confused overnight, [...] Disposition PT/OT recommending IPR- Referral sent to [facility] on 01/30 Follow-up: - [place] [facility] - Urology - Continue monitoring urine for clots but seems to be resolving with stabilized Hgb - F/u in [facility] in 3 weeks with pre-clinic CT-Urogram (clinic #: [phone]) - Will schedule f/u Cysto when pt [...] PRN Meds (4): 01/27/19 acetaminophen 650 mg AK Q6H 01/26/19 labetalol 10 mg IVP Q10Min [...] seen and examined by me with the resident/RELEASE COORDINATOR/PA and I agree with the History/Exam documented. 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 02/05/2019 [facility] Extracted from:Title: Vascular Surgery Author: Nighat Nick [...] DVT(I82.401) Off apixaban for a week at [facility] due to active bleeding. 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 12.Stroke(I63.9) Resume aspirin 81mg daily, c/w lipitor qhs. 13.Gout(M10.9) c/w allopurinol daily. Left leg sequential compression device. Hold off on DVT ppx given active bleeding reported from RLE wounds. Return to [facility] pending final recommendations by ORS regarding possible BKA during this hospitalization. 11/07/2018 [facility] Extracted from:Title: Team D Progress Note Author: Trish Lizama MD Date: 08/06/18 Mr. 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 Pager: [phone]. MSO# [id number] Addendum by Lore Cai MD on 08/06/2018 17:19 ASSOCIATE PROFESSOR OF PHYSICS Attending Attestation: I personally interviewed and examined [...] Weight 118.182, kg, Start date: 07/29/18 9:00:00 ASSOCIATE PROFESSOR OF PHYSICS, Duration: 30 day, Stop date: 08/27/18 9:00:00 ASSOCIATE PROFESSOR OF PHYSICS Chronic pain syndrome(G89.4) Ordered: Lyrica, 25 mg, 1 cap, Route: PO, Drug form: CAP, Daily, Dosing Weight 118.182, kg, Start date: 07/29/18 9:00:00 ASSOCIATE PROFESSOR OF PHYSICS, Duration: 30 day, Stop date: 08/27/18 9:00:00 ASSOCIATE PROFESSOR OF PHYSICS tramadol 50 mg oral tablet, 50 mg, 1 tab, Route: PO, Drug form: TAB, BID, Dosing Weight 118.182, kg, PRN Pain Score 1-5, Start date: 07/28/18 21:47:00 ASSOCIATE PROFESSOR OF PHYSICS, Duration: 30 day, Stop date: 08/27/18 21:46:00 ASSOCIATE PROFESSOR OF PHYSICS CKD (chronic kidney disease) stage 3, GFR [...] will continue to follow work up 08/07/2018 [facility] Extracted from:Title: History and Physical Author: Kobe [...] home medication Prophylaxis Eliquis Disposition Home 04/11/2017 [facility] Extracted from:Title: Infection Admission H&P * Author: [...] and at least 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 We can be reached at [phone]. Extracted from:Title: History and Physical Author: Elizabeth [...] coreg 25mg qdaily - no hx of [place]. On aspirin 325mg daily Ordered: 6.Benign essential [...] - received LR in the ED - [id number] PO KCL now. 18. Anemia - no e/o acute blood loss - likely 2/2 CKD 19. GERD - asymptomatic Prophylaxis on heparin drip Disposition Pending stabilization; PT/OT requested. Likely will be able to go home when ready. Addendum by Elizabeth Nicole MD on 01/19/2017 17:02 CDT Abx regimen- Vancomycin, cefepime and metronidazole 01/31/2017 [facility] Plan of Care No Data Provided for This Section Social History Social History Date Source Social History TypeResponse Alcohol Never Employment/School Status: Retired. Exercise 1, 2 Substance Abuse Use: None. Smoking Status Former smoker; Type: Cigars; Exposure to Tobacco Smoke None; Cigarette Smoking Last 365 Days No; Reg Smoking Cessation Counseling No entered on: 01/26/19 1Pt works 3 times a week with [id number] 01/26/2019 [facility] Social History TypeResponse Substance Abuse Use: None. Exercise 1, 2 Employment/School Status: Retired. Alcohol Never Smoking Status Former smoker; Type: Cigars; Exposure to Tobacco Smoke None; Cigarette Smoking Last 365 Days No; Reg Smoking Cessation Counseling No entered on: 01/26/19 1Pt works 3 times a week with [id number] 10/30/2018 [facility] Social History TypeResponse Substance [...]
--- NOTE | 2019-02-22 11:38 | NUR ---
Received patient via stretcher from ICU. Accompanied by . AAOX2 person, place, confused. Respirations even and unlabored. Tele #[phone] Afib [phone]. Oriented patient and to room. Instructed to use call light for assistance. Voiced understanding. Side rails upx3, call light within reach, bed alarm on.
[2019-02-22 11:54] VITALS: BP 119/80
[2019-02-22 11:56] VITALS: BP 119/80
--- NOTE | 2019-02-22 12:07 | NUR ---
Patient's cannot recall medications. States "When I go home I will call you to give you medication list"
[2019-02-22 12:08] VITALS: BP 119/80
--- NOTE | 2019-02-22 12:27 | NUR ---
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
--- NOTE | 2019-02-22 12:59 | NUR ---
T101.5 A 102.9 oral. Layla Beck aware. See orders
[2019-02-22] MEDS: ACETAMINOPHEN 325 MG TAB PO PRN ×2 (13:55→20:21)
--- NOTE | 2019-02-22 15:27 | NUR ---
T101.1. Blankets removed. Left sheets only. Blood to be held until T<100 as ordered
[2019-02-22] MEDS ORDERED: DEXTROSE 5%/0.45% SOD CHL 1,000 ML IV ONE (15:30)
[2019-02-22 15:36] VITALS: BP 128/67
[2019-02-22] MEDS ORDERED: NORCO 10-325 T1 EACH PO (16:11)
[2019-02-22] MEDS: INSULIN REGULAR, HUMAN 100 UNIT/1 ML 3ML VIAL SQ SCH ×2 (16:30→20:21)
--- NOTE | 2019-02-22 17:14 | NUR ---
T101. Will continue to monitor
[2019-02-22] MEDS ORDERED: TRAZODONE HCL50 MG PO (17:41)
[2019-02-22] MEDS ORDERED: FINASTERIDE5 MG PO (17:41)
[2019-02-22] MEDS ORDERED: eliquis PO (17:41)
[2019-02-22] MEDS ORDERED: NORVASC5 MG PO (17:41)
[2019-02-22] MEDS ORDERED: FLOMAX0.4 MG PO (17:41)
[2019-02-22] MEDS ORDERED: COREG3.125 MG PO (17:41)
[2019-02-22] MEDS ORDERED: ASPIR 8181 MG PO (17:41)
[2019-02-22] MEDS ORDERED: LIPITOR20 MG PO (17:41)
[2019-02-22] MEDS ORDERED: ZYLOPRIM100 MG PO (17:41)
[2019-02-22] MEDS ORDERED: TORSEMIDE10 MG PO (17:41)
[2019-02-22] MEDS ORDERED: HYDROCODONE/APAP 10MG-325MG TAB PO PRN (17:45)
--- NOTE | 2019-02-22 18:29 | NUR ---
T100.3 oral. Left sheet only. Blood to be held until T<100 as ordered
--- NOTE | 2019-02-22 19:29 | NUR ---
WALKING ROUNDS PERFORMED, RECEIVED PT LAYING SEMI FOWLERS IN BED, UNABLE TO OBTAIN ORIENTATION. WHEN ASKING QUESTIONS PT WOULD RESPOND "MMHMM" TO EVERY QUESTION. AFTER SEVERAL QUESTIONS PT BECAME AGITATED AND RESPONDED "OH JUST LEAVE ME ALONE." RR EVEN AND NON-LABORED, ON ROOM AIR. NO S/SX OF DISTRESS NOTED. LEFT PT LAYING SEMI FOWLERS IN BED, BED IN LOW LOCKED POSITION, SIDE RAILS UPX3, CALL LIGHT AND PHONE WITHIN REACH. BED ALARM ACTIVATED. AT BEDSIDE.
--- NOTE | 2019-02-22 19:30 | NUR ---
Report given to oncoming nurse. Aware of Temperature and Blood Transfusion orders. Side rails upx2, call light within reach, bed alarm on, at bedside.
[2019-02-22 20:00] VITALS: BP 151/81
[2019-02-22 20:21] VITALS: BP 151/81
[2019-02-22] MEDS: TAMSULOSIN HCL 0.4 MG CAP PO SCH (20:21)
[2019-02-22] MEDS: ATORVASTATIN 20 MG TAB PO SCH (20:21)
[2019-02-22] MEDS: CARVEDILOL 3.125 MG TAB PO SCH (20:21)
[2019-02-22] MEDS ORDERED: TRAZODONE HCL 50 MG TAB PO SCH (21:00)
--- NOTE | 2019-02-22 23:25 | NUR ---
NOTIFIED BY TELEMETRY PT HR DROPPING FROM 50'S AFIB TO 30'S AFIB, STRIP PROVIDED WITH PATIENTS HR AT 35. NOTIFIED MD RIVERA. OK TO START ADMINISTRATION OF BLOOD SINCE TEMP HAS DROPPED TO BELOW 100. ORDERS RECEIVED TO GIVE LASIX POST BOTH UNITS OF PRBC. CONTINUE TO MONITOR HR.
[2019-02-23] VITALS (14 sets, daily range): BP systolic 103–163; BP diastolic 58–95
[2019-02-23] MEDS ORDERED: FUROSEMIDE INJ 10 MG/ML 2 ML VIAL IV PRN (00:15)
--- NOTE | 2019-02-23 00:35 | NUR ---
PT TOLERATING BLOOD TRANSFUSION, INCREASED RATE TO 100 ML/HR.
[2019-02-23] MEDS: ACETAMINOPHEN 325 MG TAB PO PRN ×3 (02:40→23:01)
[2019-02-23 06:02] LABS: BASOPHILS % 0.5 % (0.0-1.0); EOSINOPHILS % 0.5 % (0.0-6.0); HEMATOCRIT 22.7 % (38.2-49.6); HEMOGLOBIN 7.2 g/dL (14.0-18.0); LYMPHOCYTES # (AUTO) 0.6 (1.0-3.2); LYMPHOCYTES % 10.3 % (18.0-39.1); MEAN CORPUSCULAR HEMOGLOBIN 27.7 pg (28-32); MEAN CORPUSCULAR HGB CONC 31.7 g/dL (31-35); MEAN CORPUSCULAR VOLUME 87.3 fL (81-99); MONOCYTES # (AUTO) 0.3 (0.2-0.8); MONOCYTES % 5.6 % (4.4-11.3); NEUTROPHILS # (AUTO) 4.8 (2.1-6.9); NEUTROPHILS % 82.6 % (38.7-80.0); PLATELET COUNT 145 x10e3/uL (140-360); RED CELL DISTRIBUTION WIDTH 16.7 % (11.7-14.4)
[2019-02-23 06:42] LABS: % IRON SATURATION 5 % (15-50); ALBUMIN 2.7 g/dL (3.5-5.0); ALKALINE PHOSPHATASE 82 IU/L (40-150); ANION GAP 11.9 mmol/L (8-16); BLOOD UREA NITROGEN 38 mg/dL (7-26); BUN/CREATININE RATIO 22 (6-25); CALCIUM 9.4 mg/dL (8.4-10.2); CARBON DIOXIDE 20 mmol/L (22-29); CHLORIDE 107 mmol/L (98-107); CREATININE, SERUM 1.76 mg/dL (0.72-1.25); EST GLOMERULAR FILTRATION RATE 39 ML/MIN (60-); GLUCOSE 127 mg/dL (74-118); IRON 11 ug/dL (65-175); POTASSIUM 3.9 mmol/L (3.5-5.1); SODIUM 135 mmol/L (136-145); TOTAL IRON BINDING CAPACITY 239 ug/dL (261-478); TRANSFERRIN 171 mg/dL (174-364)
[2019-02-23 06:43] LABS: CHOL/HDL RATIO 3.3 (3.9-4.7); MAGNESIUM 1.8 MG/DL (1.3-2.1)
[2019-02-23 06:49] LABS: ALANINE AMINOTRANSFERASE < 6 IU/L (0-55)
[2019-02-23 06:56] LABS: FREE T4 (FREE THYROXINE) 0.76 ng/dL (0.8-1.8); THYROID STIMULATING HORMONE 2.522 uIU/mL (0.350-4.940)
--- NOTE | 2019-02-23 07:06 | NUR ---
RECEIVED PATIENT RESTING IN BED NO SIGNS OF DISTRESS. BED LOW, WHEELS LOCKED, SIDE RAILS X2. CALL LIGHT IN REACH WILL CONTINUE TO MONITOR PATIENT.
[2019-02-23] MEDS: CARVEDILOL 3.125 MG TAB PO SCH ×2 (08:11→20:46)
[2019-02-23 08:30] LABS: FERRITIN 68.25 ng/mL (21.81-274.66)
[2019-02-23] MEDS: ALLOPURINOL 100 MG TAB PO SCH (08:30)
[2019-02-23] MEDS: AMLODIPINE BESYLATE 5 MG TAB PO SCH ×2 (08:30→08:37)
[2019-02-23] MEDS: TORSEMIDE 10 MG TAB PO SCH (08:30)
[2019-02-23] MEDS: TAMSULOSIN HCL 0.4 MG CAP PO SCH ×2 (08:30→20:46)
[2019-02-23] MEDS: FINASTERIDE 5 MG TAB PO SCH (08:30)
[2019-02-23] MEDS: INSULIN REGULAR, HUMAN 100 UNIT/1 ML 3ML VIAL SQ SCH ×4 (08:55→20:46)
--- NOTE | 2019-02-23 09:00 | NUR ---
PATIENT A/O X 0-1, EVEN RESPIRATIONS ON RA. BOWEL SOUNDS ACTIVE, NO EDEMA. LEFT KNEE SCAB AND ABRASION TO AN. 2X2 AND TEGADERM ON AN. TELEMETRY #23 A FIB. LEFT AND RIGHT FA [address]. IV INTACT/PATENT. NO PAIN AT THIS TIME. OCHOA IN PLACE WITH YELLOW URINE. CALL LIGHT IN REACH, BED ALARM ON, WILL CONTINUE TO MONITOR PATIENT.
--- NOTE | 2019-02-23 10:16 | Consultation ---
DATE OF CONSULTATION: Pulmonary Critical Care Consultation CHIEF COMPLAINT: Altered mental status and bacteremia. HISTORY OF PRESENT ILLNESS: The patient is a 68-year-old man. He has a history of diabetes and hypertension. He has had 2 strokes in the past. Diabetes and hypertension. He also has a history of prostate problems. About 6 weeks ago, he was hospitalized for problems with his right leg. He required a hfecl-glb-fvcx amputation. His hospital course was complicated by a deep vein thrombosis. He had a Dorcas filter placed. Several weeks later, the [place] filter was removed. According to the , the patient had a stroke at that time. He was subsequently transferred to [place] and then finally to home. According to the , he has been more confused ever since he had the second stroke 6 weeks ago last month. He had a stroke at that time. He had worsening mental status as a result of the stroke. He subsequently required care at [facility]. According to the , he has been confused ever since the stroke last month. He left [place] several days ago, but became more confused again at home. He did not have a fever. When he came to the emergency department, he was found to have pyuria and bacteriuria. He also had a temperature of a 101.6. He had a CT scan that was negative. His blood count was low and he required a blood transfusion. PAST SURGICAL HISTORY: 1. Status post amllf-jgc-eavc amputation on the right side. 2. History of a caval filter. SOCIAL HISTORY: The patient quit smoking many years ago. He is not an active drinker. ALLERGIES: HE IS ALLERGIC TO CLINDAMYCIN AND HYDRALAZINE. FAMILY HISTORY: Family history is noncontributory. REVIEW OF SYSTEMS: The patient has been more confused. He has fever. He is not having any neck pain. He denies any chest pain. He has no difficulty breathing. He has no nausea or vomiting. He has no leg edema. He does have a rritu-qmc-liom amputation on the right side. He has an indwelling catheter. PHYSICAL EXAMINATION: VITAL SIGNS: The patient is afebrile. The blood pressure is 126/61, and the O2 saturation is 98% on room air. The pulse is 70. HEENT: Shows no facial swelling or erythema. The oropharynx is normal. LYMPHATIC: Shows no submandibular, cervical, or supraclavicular adenopathy. CARDIAC: Reveals a regular rate and rhythm with normal S1, S2. There are no murmurs or rubs heard. LUNGS: Auscultation of lungs shows clear breath sounds bilaterally. There is no wheezing. ABDOMEN: Soft, nontender. There is no rebound or guarding. EXTREMITIES: Shows a lrrak-mst-mrks amputation on the right side. There is some discoloration on the left side consistent with chronic venous stasis. LABORATORY DATA: Urinalysis shows 10 to 20 white blood cells. BUN to creatinine ratio is 50 to 2.16. BNP is 489. White blood cell count is 5.8 with a hemoglobin of 7.2. The platelet count is 145. MICROBIOLOGICAL DATA: Urine culture shows gram-negative bacilli. Blood cultures show 2/2 bottles with gram-negative rods. RADIOGRAPHIC DATA: CT scan of the head shows no acute disease. Chest x-ray shows no acute disease. IMPRESSION: 1. Gram-negative urinary tract infection with indwelling Mccall and severe sepsis, present on admission. 2. Metabolic encephalopathy. 3. Ckzrb-uw-mluzcji renal failure. 4. Anemia secondary to chronic blood loss. 5. Diabetes. 6. Hypertension. 7. Chronic heart failure of unclear etiology. PLAN: 1. The patient will need antibiotics to cover for healthcare-associated gram-negative problems. 2. The patient received blood transfusion. We will continue to monitor blood counts. 3. The patient has received IV fluids. We will hold additional IV fluids because of his history of heart failure. 4. Monitor renal function. 5. Monitor blood sugars and give insulin as appropriate. 6. DVT prophylaxis. 7. Poor prognosis. 8. Case discussed with . Rob Vera MD LM/BRENL /[id number]
[2019-02-23] MEDS ORDERED: SODIUM CHLORIDE 0.9% 250ML 250 ML ONE (10:32)
[2019-02-23] MEDS: MEROPENEM 1GM 100 ML IV SCH ×2 (10:34→17:13)
[2019-02-23] MEDS ORDERED: CEFTRIAXONE SOD 1 GM/NS 50 ML 50 ML IV SCH (11:00)
[2019-02-23 11:57] LABS: FOLATE 12.4 ng/mL (7.0-15.4)
--- NOTE | 2019-02-23 14:17 | NUR ---
TEMPERATURE 100.6 PRN TYLENOL 650 MG PO GIVEN.
--- NOTE | 2019-02-23 14:47 | NUR ---
RECHECKED TEMPERATURE, 101.4. 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
--- NOTE | 2019-02-23 15:35 | NUR ---
SPOKE WITH ABE BYRD REGARDING TEMPERATURE OF 101.4 CONTINUE TO MONITOR TEMPERATURE BEFORE ADMINISTERING BLOOD TRANSFUSION NEW ORDER FOR STAT HH. ORDERS IMPLEMENTED
[2019-02-23 15:58] LABS: HEMATOCRIT 23.9 % (38.2-49.6); HEMOGLOBIN 7.5 g/dL (14.0-18.0)
[2019-02-23] MEDS: ATORVASTATIN 20 MG TAB PO SCH (20:46)
--- NOTE | 2019-02-23 21:34 | NUR ---
SPOKE WITH ANNABELLE BYRD TO VERIFY TRANSFUSION ORDERS, PREVIOUS ORDERS HAD BEEN CANCELED. ORDERS RECEIVED TO GIVE X1 UNIT PRBC. ORDER ENTERED AND TO BE IMPLEMENTED.
--- NOTE | 2019-02-23 21:40 | NUR ---
T 100.5F, HOLDING BLOOD UNTIL TEMP LESS THAN 100F PER ORDERS.
[2019-02-23] MEDS ORDERED: SODIUM CHLORIDE 0.9% 250ML 250 ML IV ONE (21:45)
--- NOTE | 2019-02-23 23:01 | NUR ---
T 101.2 AX, PO TYLENOL GIVEN, COLD COMPRESS TO FACE, ROOM TEMP DROPPED, AND ONLY THIN SHEET ON PATIENT. REPOSITIONED FOR COMFORT.
--- NOTE | 2019-02-23 23:13 | NUR ---
DR. SWETHA DALE. UNABLE TO CONTACT TO INQUIRE ABOUT PREVIOUS COLONOSCOPY.
[2019-02-24] VITALS (8 sets, daily range): BP systolic 119–158; BP diastolic 60–84
--- NOTE | 2019-02-24 00:29 | Consultation ---
DATE OF CONSULTATION: REASON FOR CONSULTATION: Acute kidney injury. HISTORY OF PRESENT ILLNESS: The patient is a 68-year-old male with past medical history of diabetes, hypertension, history of stroke, recent right below-knee amputation, and history of DVT status post IVC filter, was admitted with confusion. The patient was found to have gram-negative UTI and fever. Also, found to be anemic. Had 1 unit of PRBC. Started on IV antibiotic. CT of the head showed subacute infarct in the left posterior temporal inferior parietal lobule of the MCA territory and chronic finding of mild generalized volume loss and mild supratentorial white matter small vessel ischemic changes. The patient currently is awake and alert, unable to provide me any history, but denies having any chest pain or any shortness of breath. The patient was found to be in acute kidney injury with creatinine of 2.16, that improved to 1.76 this morning. The patient has had a Mccall catheter, which per nurse is chronic and has been having good urine output. He is on torsemide and furosemide. PAST MEDICAL HISTORY: As above. PAST SURGICAL HISTORY: Right below-knee amputation and IVC filter placement. SOCIAL HISTORY: Lives at home with . No recent history of alcohol abuse. Quit smoking many years ago. ALLERGIES: CLINDAMYCIN AND HYDRALAZINE. FAMILY HISTORY: No history of any kidney disease. REVIEW OF SYSTEMS: Limited. PHYSICAL EXAMINATION: VITAL SIGNS: Blood pressure 126/62, pulse of 67, respirations 20, temperature 100.3, and 97% on room air. GENERAL: The patient is awake and alert, not in apparent distress. HEART: S1 and S2. LUNGS: Clear to auscultation bilaterally. ABDOMEN: Soft, nontender, and nondistended. Bowel sounds positive. EXTREMITIES: No edema. NEUROLOGIC: He moves all extremities. LABORATORY DATA: White count 5.8, hemoglobin 7.5, and platelet count is 145. INR 1.26. Sodium 135, potassium 3.9, chloride 107, CO2 20, BUN 38, creatinine 1.76, glucose 127, and magnesium 1.8. Phosphorus 3, calcium is 9.4, and iron saturation low at 5. UA with 11-20 wbc. Urine culture showed gram-negative bacilli. Blood culture negative. RADIOGRAPHIC DATA: Chest x-ray, no acute cardiopulmonary process. CT of the head as per HPI. ASSESSMENT AND PLAN: 1. Acute kidney injury. Baseline is unknown. It is improving. We will get a renal ultrasound. Continue with the current medication for now. Acute kidney injury could be secondary to infection. 2. Hypertension, controlled. 3. Diabetes, type 2 per primary team. 4. Gram-negative rigoberto UTI, fever, currently on meropenem. Follow up on blood cultures and adjust the medicine. 5. Anemia. Status post 4 units of PRBC. The patient has iron deficiency. Fecal occult blood is positive. Consider GI consult. The patient is currently febrile, so the 2nd unit of PRBC was not transfused. Repeat the lab in the morning. 6. Altered mental status, subacute infarct per CT. May consider Neurology consult. The patient currently does not have any focal deficit. Also, on antibiotic for UTI. 7. Family is at bedside. I want to thank Dr. Stuart for the consult. MD RAYA Marks/DAVID /[id number]
[2019-02-24] MEDS: MEROPENEM 1GM 100 ML IV SCH ×3 (01:11→17:11)
--- NOTE | 2019-02-24 01:47 | NUR ---
temp 99.7 ax, will reassess. patient resting with eyes closed. no distress observed. bed locked and in lowest position, call light within easy reach.
[2019-02-24] MEDS ORDERED: SODIUM CHLORIDE 0.9% 250ML 250 ML ONE (03:35)
[2019-02-24] MEDS: ACETAMINOPHEN 325 MG TAB PO PRN (04:57)
--- NOTE | 2019-02-24 05:40 | NUR ---
began blood transfusion, remained with patient for first 15 min. no adverse reactions noted. vss. will continue to monitor the patient. bed locked and in lowest position, call light within reach.
--- NOTE | 2019-02-24 06:16 | Diagnostic Imaging Report ---
EXAMINATION: CHEST SINGLE (PORTABLE) COMPARISON: Chest x-ray 02/22/2019 INDICATION: Altered level of consciousness ^fever DISCUSSION: Frontal view of the chest obtained at 0603 hours. The patient is rotated. HEART AND MEDIASTINUM: Stable cardiomegaly and aortic tortuosity LINES: None. LUNGS: Increasing airspace opacity in the base of the right lung. Minimal left basilar atelectasis. Pulmonary vascular markings are normal PLEURA: Stable eventration of the right diaphragm. Costophrenic angles are sharp. No pneumothorax. BONES AND SOFT TISSUES: Stable degenerative changes of the shoulders. The soft tissues are normal. IMPRESSION: Increasing right basilar airspace opacity either pneumonia or atelectasis. Minimal left basilar atelectasis. Stable cardiomegaly. No vascular congestion. Signed by: Dr. Jaxon Sanches MD on 02/24/2019 6:13 AM
--- NOTE | 2019-02-24 06:20 | NUR ---
made house manager aware of contact isolation due to bacteria in urine.
[2019-02-24] MEDS: INSULIN REGULAR, HUMAN 100 UNIT/1 ML 3ML VIAL SQ SCH ×4 (07:30→23:12)
--- NOTE | 2019-02-24 08:12 | NUR ---
one unit of Blood finished, no adverse reaction noted, patient tolerated with breakfast, continue monitoring
[2019-02-24] MEDS ORDERED: ONDANSETRON HCL 4 MG ORAL DISINTEGRATING TAB PO PRN (08:30)
[2019-02-24] MEDS: IRON SUCROSE 100 MG in SODIUM CHLORIDE 0.9% 100 ML 100 ML IV SCH (08:50)
[2019-02-24] MEDS: PANTOPRAZOLE SOD 40 MG TABEC PO SCH (09:20)
[2019-02-24] MEDS: TORSEMIDE 10 MG TAB PO SCH (09:20)
[2019-02-24] MEDS: AMLODIPINE BESYLATE 5 MG TAB PO SCH (09:20)
[2019-02-24] MEDS: ALLOPURINOL 100 MG TAB PO SCH (09:20)
[2019-02-24] MEDS: FINASTERIDE 5 MG TAB PO SCH (09:20)
[2019-02-24] MEDS: TAMSULOSIN HCL 0.4 MG CAP PO SCH ×2 (09:20→21:05)
[2019-02-24] MEDS: CARVEDILOL 3.125 MG TAB PO SCH ×2 (09:20→21:05)
[2019-02-24 11:00] LABS: BASOPHILS % 0.8 % (0.0-1.0); EOSINOPHILS # (AUTO) 0.1 (0.0-0.4); EOSINOPHILS % 2.5 % (0.0-6.0); HEMOGLOBIN 8.4 g/dL (14.0-18.0); LYMPHOCYTES # (AUTO) 0.5 (1.0-3.2); LYMPHOCYTES % 11.4 % (18.0-39.1); MEAN CORPUSCULAR HEMOGLOBIN 28.7 pg (28-32); MEAN CORPUSCULAR HGB CONC 32.3 g/dL (31-35); MEAN CORPUSCULAR VOLUME 88.7 fL (81-99); MONOCYTES # (AUTO) 0.5 (0.2-0.8); MONOCYTES % 11.2 % (4.4-11.3); NEUTROPHILS # (AUTO) 3.5 (2.1-6.9); NEUTROPHILS % 73.5 % (38.7-80.0); PLATELET COUNT 150 x10e3/uL (140-360); RED BLOOD COUNT 2.93 x10e6/uL (4.3-5.7); RED CELL DISTRIBUTION WIDTH 16.6 % (11.7-14.4)
[2019-02-24 11:19] LABS: ALBUMIN 2.6 g/dL (3.5-5.0); ALBUMIN/GLOBULIN RATIO 0.9 (0.8-2.0); ANION GAP 9.9 mmol/L (8-16); CALCIUM 9.6 mg/dL (8.4-10.2); POTASSIUM 3.9 mmol/L (3.5-5.1)
[2019-02-24 11:56] LABS: ANISOCYTOSIS SLIGHT; EOSINOPHILS % (MANUAL) 1 % (0-7); LYMPHOCYTES % (MANUAL) 7 % (19-48); MONOCYTES % (MANUAL) 10 % (3.4-9.0); NEUTROPHILS % (MANUAL) 82 % (40-74); PLATELET ESTIMATE ADEQUATE; PLATELET MORPHOLOGY COMMENT NORMAL; POIKILOCYTOSIS SLIGHT; RBC MORPHOLOGY COMMENT NORMAL
--- NOTE | 2019-02-24 12:50 | Diagnostic Imaging Report ---
EXAM: US RENAL RETROPERITONEAL COMP DATE: 02/24/2019 12:00 AM INDICATION: Acute kidney injury COMPARISON: None FINDINGS: The right kidney is surgically absent. No obvious abnormalities identified within the right renal fossa. The left kidney is normal in size measuring 13.7 x 6.2 x 5.6 cm with cortical thickness of 1.9 cm. There is a simple cyst identified within the mid left kidney measuring 1.6 x 2.0 1.9 cm. There is no evidence for solid renal mass, hydronephrosis, or shadowing calculi. Small amount free fluid/ascites within the right upper quadrant. IMPRESSION: Status post right nephrectomy. Unremarkable sonographic appearance of the left kidney. Incidentally noted small volume of right upper quadrant ascites. Signed by: Dr. Edy Knutson MD on 02/24/2019 12:46 PM
--- NOTE | 2019-02-24 13:57 | NUR ---
This 68 y/o male received from [id number] to room 214 on isolation for Esbl in the urine. The pt. is awake and alert and denies any pain or discomfort. He was offered a blanket but declined.
--- NOTE | 2019-02-24 15:42 | NUR ---
68 yo MALE PRESENTS WITH MULTIPLE BRUISES AND ABRASIONS RT BKA AND LFT KNEE LFT LOWER LEG SKIN TEAR LFT HEEL ESCHAR RECOMMENDATIONS PREVALON BOOT TO LFT HEEL CONTINUE ALTERNATING MATTRESS APPLY VASOLEX OINTMENT DAILY TO LEFT HEEL COVER WITH ALLEVYN FOAM APPLY VASOLEX OINTMENT DAILY TO LE SKIN TEAR COVER WITH ALLEVYN FOAM APPLY VASOLEX TO RT BKA DAILY NURSING TO CONTINUE TO MONITOR LFT KNEE STABLE ESCHAR THAT IS OPEN TO AIR Addendum: 02/24/19 at 1555 by Jose Morelos RN Amended: Links added.
--- NOTE | 2019-02-24 16:01 | NUR ---
WENT TO ROOM AND PT STATES HE FEELS PUSHED AROUND, STATES DID NOT LIKE [facility] AND DOES NOT WANT TO RETURN. ASKED PT TO CALL HIS ON PHONE SINCE I CALLED 2 TIMES AND GOT A RECORDING THAT VOICEMAIL WAS FULL SHE WAS ABLE TO GIVE ANOTHER NUMBER TO REACH HER [phone]. SHE STATES HE WAS AT [facility] SO IF HE NEEDS A CUSTODIAL SHE WOULD LIKE FOR HIM TO GO THERE. SHE ALSO STATES THAT THEY BOTH WANT HIM TO RETURN HOME. SHE STATES THAT SHE IS RECOVERING AFTER A FOOT SURGERY HERSELF AND UNABLE AT THIS TIME TO CARE FOR HIM BUT THE GOAL IS TO RETURN HOME.
--- NOTE | 2019-02-24 19:24 | NUR ---
Patient received lying in bed. AAO x 2. Daughter at bedside. Patient had no signs of pain, discomfort or respiratory distress. Mccall catheter draining blood-tinged urine. Telemetry in place . Dressing to left heel and kirby CDI. Fall precautions implemented. Patient instructed to call for assistance when needed. Call light within reach.
[2019-02-24] MEDS: ATORVASTATIN 20 MG TAB PO SCH (21:05)
[2019-02-25] MEDS: MEROPENEM 1GM 100 ML IV SCH ×3 (02:28→16:56)
--- NOTE | 2019-02-25 03:25 | NUR ---
Blood specimen sent to lab for analysis
[2019-02-25 03:56] LABS: BASOPHILS % 0.7 % (0.0-1.0); EOSINOPHILS # (AUTO) 0.2 (0.0-0.4); EOSINOPHILS % 3.6 % (0.0-6.0); HEMATOCRIT 26.9 % (38.2-49.6); HEMOGLOBIN 8.4 g/dL (14.0-18.0); LYMPHOCYTES # (AUTO) 0.7 (1.0-3.2); LYMPHOCYTES % 16.2 % (18.0-39.1); MEAN CORPUSCULAR HEMOGLOBIN 27.4 pg (28-32); MEAN CORPUSCULAR HGB CONC 31.2 g/dL (31-35); MEAN CORPUSCULAR VOLUME 87.6 fL (81-99); MONOCYTES # (AUTO) 0.3 (0.2-0.8); MONOCYTES % 7.5 % (4.4-11.3); NEUTROPHILS % 71.8 % (38.7-80.0); PLATELET COUNT 175 x10e3/uL (140-360); RED BLOOD COUNT 3.07 x10e6/uL (4.3-5.7); RED CELL DISTRIBUTION WIDTH 16.6 % (11.7-14.4)
[2019-02-25 04:00] VITALS: BP 138/70
[2019-02-25 04:20] LABS: ANION GAP 11.6 mmol/L (8-16); CREATININE, SERUM 1.98 mg/dL (0.72-1.25); POTASSIUM 3.6 mmol/L (3.5-5.1)
--- NOTE | 2019-02-25 06:11 | NUR ---
Dr. Vidhya Moran notified of routine "Consult" for patient. . Reason: Subacute infarct in Lt. posterior temporal lobe. stated she'll see patient while making her rounds today.
--- NOTE | 2019-02-25 07:00 | NUR ---
Walking rounds done. Patient resting comfortably. Shift report given to oncoming nurse.
[2019-02-25 07:57] VITALS: BP 140/78
[2019-02-25 08:23] VITALS: BP 140/78
[2019-02-25] MEDS: INSULIN REGULAR, HUMAN 100 UNIT/1 ML 3ML VIAL SQ SCH ×4 (08:30→21:00)
[2019-02-25] MEDS: BALSAM PERU/CASTOR OIL 5 GM OINT...G. TP SCH (09:00)
[2019-02-25] MEDS: TORSEMIDE 10 MG TAB PO SCH (09:31)
[2019-02-25] MEDS: CARVEDILOL 3.125 MG TAB PO SCH ×2 (09:31→21:25)
[2019-02-25] MEDS: FINASTERIDE 5 MG TAB PO SCH (09:33)
[2019-02-25] MEDS: ALLOPURINOL 100 MG TAB PO SCH (09:33)
[2019-02-25] MEDS: TAMSULOSIN HCL 0.4 MG CAP PO SCH ×2 (09:33→21:25)
[2019-02-25] MEDS: PANTOPRAZOLE SOD 40 MG TABEC PO SCH (09:33)
[2019-02-25] MEDS: AMLODIPINE BESYLATE 5 MG TAB PO SCH (09:33)
[2019-02-25] MEDS: IRON SUCROSE 100 MG in SODIUM CHLORIDE 0.9% 100 ML 100 ML IV SCH (11:02)
[2019-02-25 11:29] VITALS: BP 151/84
--- NOTE | 2019-02-25 11:33 | NUR ---
RTF AND PASRR COMPLETED AND FILED IN CHART WITH COPIES PUT IN PACKET
--- NOTE | 2019-02-25 13:43 | NUR ---
DAUGHTER SOLANGE TERRAZAS [phone] CALLED STATING SHE WANTS TO GET POWER OF SLURRY WORKER OVER HER FATHER., SHE STATES HER STEP MOTHER NIRAJ IS NOT ABLE TO MAKE DECISIONS, SHE STATES APS IS INVOLVED AND THE TIME STUDY CLERK IS ALFREDO LCEMENTE [phone]. I CALLED AND LEFT MESSAGE TO RETURN CALL TO SEE WHAT APS RECOMMENDATIONS WERE PREVIOUSLY. LET DAUGHTER KNOW THAT BY LAW THE HIERARCHY IS POWER OF SLURRY WORKER first, SPOUSE SECOND IF NO POA, AND ADULT CHILD IF NO SPOUSE. I CANNOT ASSIST IN FACILITATING A POA FOR HER AT THIS TIME. I TOLD HER I WOULD SPEAK WITH APS AND SEE WHAT THEIR RECOMMENDATIONS WERE, SPOKE WITH SONA (HEAD OF ETHICS COMMITTEE) AND HE ALSO REENFORCED GUIDELINES AND HIERARCHY ARE LISTED ABOVE AND IT WOULD BE A LEGAL ISSUE FOR THE FAMILY TO FOLLOW UP EXTERNAL THE HOSPITAL. THE PLAN WILL REMAIN THE SAME PT WILL GET TESTING TOMORROW AND WHEN CLEARED WILL GO TO [facility].
--- NOTE | 2019-02-25 14:04 | NUR ---
Patient has room ready at [facility]. Per Iftikhar Nuñez, patient is not ready to discharge to facility at this time.
--- NOTE | 2019-02-25 14:19 | NUR ---
ASSESSMENT: Spiritual concern Pt's hopeful for 's complete recovery and return home. Pt's at bedside. Pt's states they identify as [employer]. Intervention: Provided hospitality and empathic listening. Facilitated illness review. Provided prayer and information on how to reach back digger operator, if needed. Outcome: Pt & expressed appreciation for visit. Will follow as able. SANDRO RAMSEY [employer] Plant Operator Spiritual Care Department O: [phone] Pager: [phone] ([phone] number calling from)
--- NOTE | 2019-02-25 14:20 | NUR ---
HALF-WAY FACILITY DISCHARGE INFORMATION PATIENT HAS BEEN ACCEPTED TO: NAME: [facility] ADDRESS: [id number] ACCEPTING MD: MIGUEL ROOM: [id number] NURSE CALL REPORT TO: [phone]
[2019-02-25 15:41] VITALS: BP 116/68
--- NOTE | 2019-02-25 16:13 | NUR ---
APS WORKER MOODY ALMANZAR [phone] CELL OFFICE IS [phone] CAME TO SEE PATIENT SHE STATES AT THIS TIME PT IS TOO CONFUSED TO BE SIGNING A POWER OF COURT WORKER T THIS TIME. SHE WAS ADVISED OF DISCHARGE PLAN TO [facility], AND STATES TO CALL HER IF HE DISCHARGES. SHE STATES LONG HE IS HERE HE IS SAFE, HE WILL NOT HAVE AN ACTIVE CASE.
[2019-02-25 20:00] VITALS: BP 113/77
[2019-02-25] MEDS: ATORVASTATIN 20 MG TAB PO SCH (21:25)
--- NOTE | 2019-02-25 22:21 | Consultation ---
DATE OF CONSULTATION: 02/25/2019 Neurology consult note HISTORY OF PRESENT ILLNESS: Mr. Bell is a 68-year-old man with an extensive past medical history including hypertension, hyperlipidemia, diabetes mellitus, atrial fibrillation, and two prior strokes, admitted to [facility] on February 22, 2019 with worsening confusion. Prior to admission, Mr. Bell had been home for several days after being discharged from [facility]. Over the several days, the patient developed worsening confusion. Therefore, his brought him to the emergency center at [facility] for further evaluation. Upon arrival in the emergency center, the patient was febrile with a temperature of 101.6 degrees Fahrenheit noted. Routine blood and urine studies revealed the patient to be anemic, requiring transfusion of 1 unit packed red blood cells. Mr. Bell was found to have pyuria and bacteriuria on urinalysis as well. The patient was admitted to [facility] as an inpatient on February 22, 2019, for further evaluation and treatment of his symptoms. During this hospitalization, the patient's blood and urine cultures grew Klebsiella pneumonia. Mr. Bell is being treated with intravenous meropenem. The patient's stool was positive for occult blood. Dr. Cas Elias may perform an esophageal gastroduodenoscopy on February 26, 2019, for further evaluation. Upon admission, a CT of the brain without contrast was obtained. This study revealed subacute ischemia in the left middle cerebral artery/posterior cerebral artery border zone. A Neurology consultation is therefore requested for recommendations regarding further evaluation and treatment of stroke. REVIEW OF SYSTEMS: Bilateral shoulder pain (chronic), confusion, and bilateral hearing loss. Otherwise, a 12-point review of systems is negative. PAST MEDICAL HISTORY: Hypertension, hyperlipidemia, diabetes mellitus, atrial fibrillation, chronic kidney disease stage 3B, two prior strokes with the most recent stroke occurring four to six weeks ago, deep venous thrombosis, benign prostatic hypertrophy, and anemia of chronic disease. PAST SURGICAL HISTORY: Right igizq-aep-jfxj amputation, and history of IVC filter placement. FAMILY MEDICAL HISTORY: The patient's family medical history is reportedly noncontributory. SOCIAL HISTORY: Mr. Bell is . He is retired. The patient does report a prior history of tobacco use, but quit smoking cigarettes years ago. There is no reported current alcohol or recreational drug use. HOME MEDICATIONS: Reviewed. Please see the list of home medications available in the electronic medical record. HOSPITAL MEDICATIONS: Tylenol, allopurinol, Norvasc, Lipitor, Coreg, Proscar, Lasix, [place], insulin sliding scale, iron sucrose, Zofran, Protonix, meropenem, Flomax, and torsemide. ALLERGIES: CLINDAMYCIN, HYDRALAZINE. NO KNOWN FOOD ALLERGIES. NO KNOWN ALLERGIES TO LATEX. NO KNOWN ALLERGIES TO IODINE OR OTHER CONTRAST MATERIALS. PHYSICAL EXAMINATION: VITAL SIGNS: Height 78 inches, weight 218.56 pounds, BMI 25.3 kg/m2, blood pressure 116/68, mmHg, pulse 66 beats per minute, respiratory rate 18 breaths per minute, and oxygen saturation 97% on room air. General: The patient is awake and alert, does not appear distressed. Normal body habitus. HEENT: Normocephalic, atraumatic. Pupils are surgical. Moist mucous membranes. NECK: Supple. No appreciable thyromegaly. No appreciable carotid bruits. CARDIOVASCULAR: S1, S2, regular rate and rhythm. No murmurs, rubs, or gallops. RESPIRATORY: Clear to auscultation bilaterally. No wheezes, rhonchi, or rales. EXTREMITIES: The skin is warm and dry. No clubbing, cyanosis, or edema. Right szvya-mkp-umwo amputation. The posterior tibial and dorsalis pedis pulses are 1+ on the left. SKIN: There is a healing incision over the stump of the right yecdy-lqw-qsoq amputation. There are multiple ecchymoses over both arms. NEUROLOGIC: Memory/Attention: The patient is awake and alert, oriented to person, place (hospital, city, state), time (month only), and minimally to situation. Cranial Nerves: Cranial nerve I - not tested. Cranial nerve II, III, IV, and - pupils are surgical. Extraocular movements are intact. No nystagmus. Cranial nerve V - sensation is intact to light touch in the bilateral V1 through V3 distributions. Strength in the temporalis and masseter muscles are within normal limits. Cranial nerve VII - the face is symmetric as are all facial movements. Strength is within normal limits. Cranial nerve VIII - hearing is markedly decreased to finger rub bilaterally. Cranial nerve IX, X - the soft palate elevates equally and symmetrically. Cranial nerve XI - normal strength of the bilateral sternocleidomastoid and trapezius muscles. Cranial nerve XII - the tongue protrudes midline and moves symmetrically from lipu-xz-okcr. Strength: Bulk is mildly diminished in both arms and both legs. Due to a mixed aphasia, the patient has great difficulty participating in a formal assessment of strength. Grossly, Mr. Bell appears to have mild left hemiparesis. Tone is normal in both arms and both legs. DTRs: Deep tendon reflexes are 1+ and symmetric at the triceps, biceps, and brachioradialis. Deep tendon reflexes are absent and symmetric at the patellas and left Achilles. Plantar responses are flexor on the left. Sensation: Sensation is intact to light touch in both arms and both legs. Cerebellar: Unable to assess secondary to the patient not understanding instructions for nxkyje-evsx-zspici and heel-kirby movements. Gait: Deferred. Speech: Spontaneous speech is very mildly dysarthric with a mixed aphasia. Repetition is intact. Involuntary movements: None. Pronator Drift: None. LABORATORY DATA: The most recent basic metabolic panel is significant for sodium of 135, BUN of 40, creatinine of 1.98, and GFR of 34. A liver function panel collected on February 24, 2019, was significant only for total protein of 5.5 and an albumin of 2.6. Lactic acid was 6.8 on February 22, 2019. B-natriuretic peptide was 488.9 on February 22, 2019. Total cholesterol 78, triglycerides were 83, LDL cholesterol was 37, and HDL cholesterol was 24 on February 23, 2019. Vitamin B12 was 451 and folate was 12.4 on February 23, 2019. On February 23, 2019, TSH was 2.522 and free T4 was 0.76. The most recent CBC with differential and platelets reveals a white blood cell count of 4.14 with 71.8% neutrophils, 16.2% lymphocytes, 7.5% monocytes, 3.6% eosinophils, and 0.7% basophils. The hemoglobin and hematocrit are 8.4 and 26.9, respectively. The platelet count is 175. PT 16.4, INR 1.26, PTT 35.1 on February 22, 2019. A urinalysis collected on February 22, 2019, revealed slightly cloudy urine with 2+ protein, small leukocyte esterase, 6-10 red blood cells, 11-20 white blood cells, and few bacteria in the setting of few epithelial cells. Stool occult blood was positive on February 22, 2019. A urine culture collected on February 22, 2019, grew Klebsiella pneumoniae. Blood cultures collected on February 22, 2019, grew Klebsiella pneumonia as well. DIAGNOSTIC STUDIES: Electrocardiogram on 02/23/2019: Atrial fibrillation at 65 beats per minute. Chest x-ray on 02/22/2019: 1. Age indeterminate elevation versus eventration of the right hemidiaphragm. 2. Otherwise no acute radiographic abnormality. CT of the brain without contrast on 02/22/2019: There is subacute to chronic ischemia in the left middle cerebral artery/posterior cerebral artery watershed zone. There is mild diffuse cerebral atrophy with compensatory dilatation of the ventricles, more than expected for the patient's age. Their findings compatible with egiv-qr-ccybjbbg chronic small-vessel ischemic disease. Echocardiogram on 02/23/2019: Ejection fraction 45% to 50%. Arrhythmia present. Renal ultrasound on 02/24/2019: Status post right nephrectomy. Unremarkable sonographic appearance of the left kidney. Incidentally noted small volume of right upper quadrant ascites. Chest x-ray on 02/24/2019: Increasing right basilar airspace opacity, either pneumonia or atelectasis. Minimal left basilar atelectasis. Stable cardiomegaly. No vascular congestion. ASSESSMENT AND PLAN: Mr. Bell is a 68-year-old man with an extensive past medical history, hospitalized with a one-week history of worsening confusion and subsequently found to have Klebsiella pneumoniae in both the urine and blood as well as a possible gastrointestinal bleed. The patient's neurological examination is significant for disorientation to time and situation, mild left hemiparesis, very mild dysarthria, and mixed aphasia. Mr. Bell's laboratory data and other diagnostic studies have been reviewed and are documented above. In my opinion, the appearance of ischemia at the left middle cerebral artery/posterior cerebral artery watershed zone is compatible with a stroke occurring within the past few weeks. This is consistent with the patient's known history of having experienced a second stroke within the past four to six weeks. RECOMMENDATIONS: As follows: 1. Stroke: When feasible, treatment with Eliquis 5 mg by mouth twice daily for stroke prophylaxis should be resumed. 2. The patient's blood pressures are at goal. Continue treatment with current antihypertensive medications. Monitor vital signs per unit protocol and adjust medications to achieve a goal blood pressure of less than 130/70 mmHg. 3. The patient's goal total cholesterol is less than 200 with LDL less than 70. Mr. Bell is at his cholesterol goals. Continue treatment with the patient's home statin medication. 4. The patient's goal hemoglobin A1c is less than 7.0. Continue treatment with sliding scale insulin per unit protocol. 5. Continue with physical therapy and Speech therapy as recommended. 6. Encephalopathy: Mr. Bell's encephalopathy is probably secondary to infection/infections with Klebsiella pneumoniae. Continue treatment with intravenous antibiotics. Limit the administration of sedative/hypnotic and pain medications as these will alter the patient's sensorium. Utilize environmental cues to prevent delirium. 7. Defer treatment of all other medical comorbidities to the primary and other services following the patient. Thank you for the consultation. There are no other recommendations from the Neurology Service at this time. Please call again with any questions or concerns. Time spent: 70 minutes. Bebe Moran MD CP/DAVID /[id number] MTDAnalia
[2019-02-26] VITALS (8 sets, daily range): BP systolic 122–158; BP diastolic 73–93
[2019-02-26] MEDS ORDERED: SODIUM CHLORIDE 0.9% 250ML 250 ML ONE (02:09)
[2019-02-26] MEDS: MEROPENEM 1GM 100 ML IV SCH ×3 (02:15→18:42)
--- NOTE | 2019-02-26 02:20 | NUR ---
IV on right forearm removed with old tip intact. Reason: Infiltration.
--- NOTE | 2019-02-26 03:25 | NUR ---
Blood specimen sent to lab for analysis.
[2019-02-26 03:49] LABS: BASOPHILS % 0.8 % (0.0-1.0); EOSINOPHILS # (AUTO) 0.2 (0.0-0.4); EOSINOPHILS % 5.3 % (0.0-6.0); HEMATOCRIT 26.6 % (38.2-49.6); HEMOGLOBIN 8.4 g/dL (14.0-18.0); LYMPHOCYTES # (AUTO) 0.8 (1.0-3.2); LYMPHOCYTES % 20.8 % (18.0-39.1); MEAN CORPUSCULAR HEMOGLOBIN 27.8 pg (28-32); MEAN CORPUSCULAR HGB CONC 31.6 g/dL (31-35); MEAN CORPUSCULAR VOLUME 88.1 fL (81-99); MONOCYTES # (AUTO) 0.4 (0.2-0.8); MONOCYTES % 9.9 % (4.4-11.3); NEUTROPHILS # (AUTO) 2.4 (2.1-6.9); NEUTROPHILS % 62.7 % (38.7-80.0); PLATELET COUNT 161 x10e3/uL (140-360); RED BLOOD COUNT 3.02 x10e6/uL (4.3-5.7); RED CELL DISTRIBUTION WIDTH 16.5 % (11.7-14.4)
[2019-02-26 04:38] LABS: ANION GAP 13.6 mmol/L (8-16); CREATININE, SERUM 1.71 mg/dL (0.72-1.25); MAGNESIUM 1.8 MG/DL (1.3-2.1); POTASSIUM 3.6 mmol/L (3.5-5.1)
[2019-02-26 05:43] LABS: BASOPHILS % 1.1 % (0.0-1.0); EOSINOPHILS # (AUTO) 0.2 (0.0-0.4); EOSINOPHILS % 5.9 % (0.0-6.0); HEMATOCRIT 26.7 % (38.2-49.6); HEMOGLOBIN 8.6 g/dL (14.0-18.0); LYMPHOCYTES # (AUTO) 0.8 (1.0-3.2); LYMPHOCYTES % 21.4 % (18.0-39.1); MEAN CORPUSCULAR HGB CONC 32.2 g/dL (31-35); MONOCYTES # (AUTO) 0.3 (0.2-0.8); MONOCYTES % 8.6 % (4.4-11.3); NEUTROPHILS # (AUTO) 2.3 (2.1-6.9); NEUTROPHILS % 62.5 % (38.7-80.0); PLATELET COUNT 173 x10e3/uL (140-360); RED BLOOD COUNT 3.07 x10e6/uL (4.3-5.7); RED CELL DISTRIBUTION WIDTH 16.6 % (11.7-14.4)
[2019-02-26] MEDS ORDERED: KETOROLAC TROMETHAMINE 30 MG/ML VIAL IV NR (06:00)
[2019-02-26 06:02] LABS: ANION GAP 13.6 mmol/L (8-16); CALCIUM 10.2 mg/dL (8.4-10.2); CREATININE, SERUM 1.68 mg/dL (0.72-1.25); POTASSIUM 3.6 mmol/L (3.5-5.1)
--- NOTE | 2019-02-26 06:40 | NUR ---
Two attempts were made to contact patient's ( Dorcas Bell-----[phone]; [phone] ) regarding upcoming EGD procedure, but but both phones were busy.
--- NOTE | 2019-02-26 07:10 | NUR ---
Shift report given to oncoming nurse regarding patient's status.
[2019-02-26] MEDS: INSULIN REGULAR, HUMAN 100 UNIT/1 ML 3ML VIAL SQ SCH ×4 (08:00→20:57)
--- NOTE | 2019-02-26 08:52 | NUR ---
Per Dr. Cas Elias patient can have clear liquid breakfast then NPO following
--- NOTE | 2019-02-26 08:52 | NUR ---
Dr. Cas Elias notified that consent has not been signed yet.
--- NOTE | 2019-02-26 09:30 | NUR ---
Spoke to patient about EGD scheduled for today. Patient is agreeable. But do to stroke patient is unable to clearly verbalize consent for stated procedure. His , Dorcas is POA. Will call her for telephone consent.
[2019-02-26] MEDS: BALSAM PERU/CASTOR OIL 5 GM OINT...G. TP SCH (09:34)
[2019-02-26] MEDS: PANTOPRAZOLE SOD 40 MG TABEC PO SCH (09:34)
[2019-02-26] MEDS: CARVEDILOL 3.125 MG TAB PO SCH ×2 (09:34→20:57)
[2019-02-26] MEDS: ALLOPURINOL 100 MG TAB PO SCH (09:34)
[2019-02-26] MEDS: TAMSULOSIN HCL 0.4 MG CAP PO SCH ×2 (09:34→20:57)
[2019-02-26] MEDS: AMLODIPINE BESYLATE 5 MG TAB PO SCH (09:34)
[2019-02-26] MEDS: TORSEMIDE 10 MG TAB PO SCH (09:34)
[2019-02-26] MEDS: FINASTERIDE 5 MG TAB PO SCH (09:34)
--- NOTE | 2019-02-26 09:56 | NUR ---
Attempted to call patient's , Dorcas for telephone consent for EGD. No answer at this time.
--- NOTE | 2019-02-26 10:40 | NUR ---
Spoke to Dorcas (Patient's , POA) and she consented to EGD , verified with 2nd RN
[2019-02-26] MEDS: IRON SUCROSE 100 MG in SODIUM CHLORIDE 0.9% 100 ML 100 ML IV SCH (11:40)
--- NOTE | 2019-02-26 16:24 | NUR ---
Patient left the floor to OR for EGD
--- NOTE | 2019-02-26 17:35 | NUR ---
Received recovery report. Patient is coming back to room 214 s/p EGD
--- NOTE | 2019-02-26 17:40 | NUR ---
Patient is back to the floor from the OR. He is awake alert and oriented x3. He has no complaints at this time. Bed locked and call light in reach. Patient's , Dorcas, was notified of his return to the floor following procedure.
[2019-02-26] MEDS ORDERED: PROPOFOL IV EMULSION 10 MG/ML 50 ML VIAL ONE (18:02)
[2019-02-26] MEDS ORDERED: LIDOCAINE HCL 2% LOCAL INJ 5 ML SDV VIAL INJ ONE (18:02)
[2019-02-26] MEDS ORDERED: FENTANYL CITRATE/PF 100MCG/2 ML INJ ONE (18:46)
[2019-02-26] MEDS: SUCRALFATE 1 GM TAB PO SCH (20:57)
[2019-02-26] MEDS: ATORVASTATIN 20 MG TAB PO SCH (20:57)
--- NOTE | 2019-02-26 23:59 | Operative Report ---
DATE OF PROCEDURE: 02/26/2019 SURGEON: Peter Elias MD PROCEDURE: EGD with biopsies. INDICATIONS FOR EGD: Upper abdominal pain, guaiac-positive stools, and anemia. MEDICATIONS: The patient was done under MAC. Please see anesthesiologist's note. PROCEDURE IN DETAIL: With the patient in left lateral decubitus position, flexible fiberoptic Olympus gastroscope was introduced into the esophagus under direct visualization without any difficulty. There were some patchy erythema noted in distal esophagus. The scope was then advanced with ease into the stomach. Mucosa overlying the antrum and the body revealed some patchy intense erythema and low-grade to moderate edema and biopsies were obtained, sent to stain for H pylori. Pylorus was intubated with ease and the scope was advanced all the way to the second portion of the duodenum. The scope was then withdrawn slowly. Mucosa overlying the proximal second portion revealed some inflammatory changes that were mild, but the mucosa overlying the duodenal bulb was diffusely erythematous and with patchy nodularity. Biopsies were obtained. The scope was then withdrawn back into the stomach and retroflexed the mucosa overlying the fundus and cardia appeared to be within normal limits. The scope was then straightened out, it was subsequently withdrawn patient tolerated procedure well. IMPRESSION: 1. Distal esophagitis, mild. 2. Gastritis, biopsied. Biopsies sent to stain for Helicobacter pylori. 3. Duodenitis. PLAN: Follow up histology. Continue Protonix 40 mg one p.o. q.a.m. before meals, add Carafate 1 g p.o. before meals t.i.d. and at bedtime. Peter Elias MD [facility] /[id number] cc: Reji Stuart MD
[2019-02-27] VITALS (7 sets, daily range): BP systolic 123–143; BP diastolic 60–99
[2019-02-27] MEDS: MEROPENEM 1GM 100 ML IV SCH (02:33)
[2019-02-27 03:26] LABS: BASOPHILS % 0.7 % (0.0-1.0); EOSINOPHILS # (AUTO) 0.2 (0.0-0.4); HEMATOCRIT 26.4 % (38.2-49.6); HEMOGLOBIN 8.5 g/dL (14.0-18.0); LYMPHOCYTES % 25.6 % (18.0-39.1); MEAN CORPUSCULAR HEMOGLOBIN 28.1 pg (28-32); MEAN CORPUSCULAR HGB CONC 32.2 g/dL (31-35); MEAN CORPUSCULAR VOLUME 87.1 fL (81-99); MONOCYTES # (AUTO) 0.4 (0.2-0.8); MONOCYTES % 8.7 % (4.4-11.3); NEUTROPHILS # (AUTO) 2.4 (2.1-6.9); NEUTROPHILS % 58.5 % (38.7-80.0); PLATELET COUNT 186 x10e3/uL (140-360); RED BLOOD COUNT 3.03 x10e6/uL (4.3-5.7); RED CELL DISTRIBUTION WIDTH 16.4 % (11.7-14.4)
[2019-02-27 03:44] LABS: ANION GAP 11.4 mmol/L (8-16); CALCIUM 10.1 mg/dL (8.4-10.2); CREATININE, SERUM 1.71 mg/dL (0.72-1.25); POTASSIUM 3.4 mmol/L (3.5-5.1)
[2019-02-27] MEDS ORDERED: POTASSIUM CHLORIDE 20 MEQ TAB CR PO ONE (06:30)
--- NOTE | 2019-02-27 06:45 | NUR ---
dr. Kelli Elias states ok to start eliquis as Neuro recommended.
--- NOTE | 2019-02-27 07:15 | NUR ---
Attempted to obtain consent for PICC line insertion. Patient is still forgetful. Patient states he don't want his to be the power of assistant attorney general, instead he wants his daughter to be POA. Day shift nurse aware.
--- NOTE | 2019-02-27 07:15 | NUR ---
BEDSIDE SHIFT REPORT RECEIVED FROM THE WINERY CELLAR HAND RN. PT IS AAOX3. PT DENIES NEEDS AT THIS TIME.
[2019-02-27] MEDS ORDERED: CEFTRIAXONE SOD 1 GM/NS 50 ML 50 ML IV SCH ×2 (08:00→10:15)
[2019-02-27] MEDS: SUCRALFATE 1 GM TAB PO SCH ×3 (08:20→17:02)
[2019-02-27] MEDS: INSULIN REGULAR, HUMAN 100 UNIT/1 ML 3ML VIAL SQ SCH ×3 (08:30→17:00)
[2019-02-27] MEDS: IRON SUCROSE 100 MG in SODIUM CHLORIDE 0.9% 100 ML 100 ML IV SCH (09:00)
[2019-02-27] MEDS ORDERED: AMLODIPINE BESYLATE 10 MG TAB PO SCH (09:00)
[2019-02-27] MEDS: CARVEDILOL 3.125 MG TAB PO SCH (09:11)
[2019-02-27] MEDS: FINASTERIDE 5 MG TAB PO SCH (09:12)
[2019-02-27] MEDS: TAMSULOSIN HCL 0.4 MG CAP PO SCH (09:12)
[2019-02-27] MEDS: PANTOPRAZOLE SOD 40 MG TABEC PO SCH (09:12)
--- NOTE | 2019-02-27 09:30 | NUR ---
PT DAUGHTER CALLED REGARDING PT TRANSFER INFORMATION. PT DAUGHTER AGREED WITH PLAN OF CARE.
[2019-02-27] MEDS: BALSAM PERU/CASTOR OIL 5 GM OINT...G. TP SCH (10:00)
[2019-02-27] MEDS: ALLOPURINOL 100 MG TAB PO SCH (10:00)
[2019-02-27] MEDS: TORSEMIDE 10 MG TAB PO SCH (10:00)
--- NOTE | 2019-02-27 10:00 | NUR ---
PT IS AAOX 3. PT VERBALIZED NAME, AND PLACE OF STAY TO THIS NURSE. PT SIGNED CONSENT FOR PICC LINE.
--- NOTE | 2019-02-27 10:30 | NUR ---
PT CALLED REGARDING PT PICC LINE. AGREED WITH PLAN OF CARE.
--- NOTE | 2019-02-27 10:50 | NUR ---
CONFIRMED WITH RADIOLOGY ABOUT PICC LINE INSERTION
--- NOTE | 2019-02-27 11:29 | NUR ---
SPOKE WITH PT STILL CONFUSED AND NOT MAKING SENSE, CALLED NIRAJ EDUCATED ABOUT IMM, SIGNED, FILED IN CHART, WITH COPY LEFT WITH FAMILY AT BEDSIDE.
--- NOTE | 2019-02-27 13:50 | Diagnostic Imaging Report ---
EXAMINATION: CHEST XRAY LINE PLACEMENT INDICATION: Line placement COMPARISON: Chest radiograph of 02/24/2019 FINDINGS: LINES/TUBES:Interval placement of right PICC line terminating in the SVC. LUNGS:The lung volumes are low. The left costophrenic angle is excluded from view. No focal consolidation. PLEURA:No pleural effusion or pneumothorax. MEDIASTINUM: Cardiomediastinal silhouette is stably enlarged. BONES/SOFT TISSUES:No acute osseous injury. Severe degenerative changes of both glenohumeral joints. ABDOMEN:No free air under the diaphragm. IMPRESSION: Right PICC line terminates in the SVC. Low lung volumes with no focal consolidation. Signed by: Chastity Richter MD on 02/27/2019 1:46 PM
--- NOTE | 2019-02-27 16:00 | NUR ---
MARY SMITH MUSIC DIRECTOR AND UPDATED THE PICC LINE X RAY RESULT.
--- NOTE | 2019-02-27 16:05 | NUR ---
PICC LINE IS OKAY TO USE. LFA 18G IV REMOVED. TIP INTACT. NO BLEEDING NOTED. DRESSING APPLIED. PT DENIED FURTHER NEEDS.
--- NOTE | 2019-02-27 16:30 | NUR ---
TRANSFER PT TO [facility] Cade SMITH.
[2019-02-27] MEDS ORDERED: APIXABAN 5 MG TABLET PO SCH (17:00)
--- NOTE | 2019-02-27 17:00 | NUR ---
CALLED PT FAMILY NIRAJ AND LEFT MESSAGE REGARDING PT TRANSFER REQUESTED. WAITING FOR THE CALL BACK.
--- NOTE | 2019-02-27 17:00 | NUR ---
OKAY TO DISCHARGE PT PER DR. BHARDWAJ
--- NOTE | 2019-02-27 17:30 | NUR ---
TRANSFER REPORT GIVEN TO ANNABEL ARCE FROM [facility].
--- NOTE | 2019-02-27 17:59 | NUR ---
MULTIPLE PHONE CALLS MADE TO INFORM THE PT FAMILY ABOUT PT TRANSFER. NO CALL BACK YET.
--- NOTE | 2019-02-27 18:01 | NUR ---
CALL BACK RECEIVED FROM PT FAMILY (NIRAJ) OKAY TO CALL [facility] TO TRANSFER THE PT.
--- NOTE | 2019-02-27 19:00 | NUR ---
BEDSIDE SHIFT REPORT GIVEN TO THE CODING ANALYST RN. PT DENIED FURTHER NEEDS.
--- NOTE | 2019-02-27 20:56 | NUR ---
AMBULANCE HERE TRANSPORTING PT TO [facility] AT THIS TIME.ALL PERSONAL BELONGINGS TAKEN WITH THE PT.PT IN STABLE CONDITION AT THE TIME OF TRANSFER.HUMAN RESOURCES ADMINISTRATOR NOTIFIED.TELEMETRY TAKEN OFF AND TAKEN TO RESPONSIBLE DEPARTMENT.
--- NOTE | 2019-03-03 05:32 | Discharge Summary ---
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 HISTORY: Hypertension, diabetes, history of stroke, atrial fibrillation, and chronic diastolic congestive heart failure. SURGICAL HISTORY: Right BKA and right nephrectomy from cancer. FAMILY HISTORY: Noncontributory. SOCIAL HISTORY: Noncontributory. HOSPITAL COURSE: A 68-year-old male admits from home due to AMS. He was recently admitted and discharged from [facility] after having a stroke. He had a right BKA six weeks ago, after which he developed a DVT. He then had a filter placed, which was removed several weeks ago. According to the during that time, the patient had a stroke and was transferred to rehab. After discharge, the patient stayed home for few days. He was found more confused and so was brought to the ER for evaluation. On admission, EKG showed atrial fibrillation at a rate of 65. Chest x-ray showed no acute abnormality. CT of the brain showed subacute infarct in the left posterior temporal and inferior parietal lobe lobule at the MCA vascular territory, chronic volume loss. Echo showed an EF of 45% to 50%, ammonia was 65. Renal ultrasound showed right nephrectomy, unremarkable appearance of the left kidney. Blood culture and urine culture both came back positive for Klebsiella pneumoniae. The patient was given IV Rocephin. Stool for blood came back positive, so the patient had an EGD, which showed distal esophagitis, gastritis, and duodenitis. He was started on Protonix and Carafate. Neurology also saw the patient, who diagnosed the patient with a stroke and when attempted to begin Eliquis b.i.d., GI approved the blood thinner. The patient will discharge to [facility] for long-term antibiotics and care home for PT. The patient and understand discharge instructions and agree to plan, vital signs stable, the patient afebrile. Dictated by Layla Beck NP MD CYNDY Simmons/DAVID /[id number]
== END 2019-02-27 21:28 | DRG 698 ==
LOC: ER 08:04 → ERHOLD 10:46 → MED/SURG 11:41 → MED/SURG2 02-24 13:46 → MED/SURG 02-24 17:16 → MED/SURG2 02-24 17:17
PROVIDERS: ADMIT Internal Medicine; ATTEND Internal Medicine
PROC: 30233N1 Transfusion of Nonautologous Red Blood Cells into Peripheral Vein, Percutaneous Approach (ICD-10-PCS; principal; 2019-02-23)
PROC: 0DB98ZX Excision of Duodenum, Via Natural or Artificial Opening Endoscopic, Diagnostic (ICD-10-PCS; 2019-02-26)
PROC: 0DB68ZX Excision of Stomach, Via Natural or Artificial Opening Endoscopic, Diagnostic (ICD-10-PCS; 2019-02-26)
PROC: 02HV33Z Insertion of Infusion Device into Superior Vena Cava, Percutaneous Approach (ICD-10-PCS; 2019-02-27)
PROC: B548ZZA Ultrasonography of Superior Vena Cava, Guidance (ICD-10-PCS; 2019-02-27)
DX: T83.511A Infection and inflammatory reaction due to indwelling urethral catheter, initial encounter (principal); A41.59 Other Gram-negative sepsis; G93.41 Metabolic encephalopathy; I63.512 Cerebral infarction due to unspecified occlusion or stenosis of left middle cerebral artery; I63.532 Cerebral infarction due to unspecified occlusion or stenosis of left posterior cerebral artery; R65.20 Severe sepsis without septic shock; N17.0 Acute kidney failure with tubular necrosis; N17.9 Acute kidney failure, unspecified; D62 Acute posthemorrhagic anemia; N30.01 Acute cystitis with hematuria; G81.94 Hemiplegia, unspecified affecting left nondominant side; R47.01 Aphasia; I13.0 Hypertensive heart and chronic kidney disease with heart failure and stage 1 through stage 4 chronic kidney disease, or unspecified chronic kidney disease; I50.32 Chronic diastolic (congestive) heart failure; N18.3 Chronic kidney disease, stage 3 (moderate); B96.1 Klebsiella pneumoniae [K. pneumoniae] as the cause of diseases classified elsewhere; E11.22 Type 2 diabetes mellitus with diabetic chronic kidney disease; Z88.1 Allergy status to other antibiotic agents; Z88.8 Allergy status to other drugs, medicaments and biological substances; D63.8 Anemia in other chronic diseases classified elsewhere; D50.0 Iron deficiency anemia secondary to blood loss (chronic); R47.1 Dysarthria and anarthria; H91.93 Unspecified hearing loss, bilateral; E78.5 Hyperlipidemia, unspecified; I48.91 Unspecified atrial fibrillation; N40.0 Benign prostatic hyperplasia without lower urinary tract symptoms; Z86.718 Personal history of other venous thrombosis and embolism; Z89.511 Acquired absence of right leg below knee; Z87.891 Personal history of nicotine dependence; Z90.5 Acquired absence of kidney; Z79.01 Long term (current) use of anticoagulants; K20.9 Esophagitis, unspecified; K29.70 Gastritis, unspecified, without bleeding; K29.80 Duodenitis without bleeding; Z85.528 Personal history of other malignant neoplasm of kidney; Z87.11 Personal history of peptic ulcer disease; M19.012 Primary osteoarthritis, left shoulder; M19.011 Primary osteoarthritis, right shoulder; Z79.82 Long term (current) use of aspirin
CPT/HCPCS: 36415; 36569; 43239; 70450; 71045; 76770; 80048; 80053; 80061; 81001; 82140; 82270; 82550; 82553; 82607; 82728; 82746; 82948; 83540; 83605; 83735; 83880; 84100; 84439; 84443; 84466; 84484; 85014; 85018; 85025; 85610; 85730; 86850; 86900; 86920; 87040; 87071; 87086; 87186; 87205; 88305; 88312; 93005; 93306; 97139; 99285; J0696; J1756; J1817; J1885; J2001; J3010; J7030; J7050; P9016

== ENCOUNTER 2021-10-16 15:02 | Inpatient (IN) | payer MEDICARE, OTHER ==
[~2021-10-16] VITALS: Ht 198.1 cm; Wt 104.3 kg
[~2021-10-16 15:02] MED LIST: ASPIR 8181 MG PO; COREG3.125 MG PO; FINASTERIDE5 MG PO; FLOMAX0.4 MG PO; LIPITOR20 MG PO; NORCO 10-325 T1 EACH PO; NORVASC5 MG PO; TORSEMIDE10 MG PO; TRAZODONE HCL50 MG PO; ZYLOPRIM100 MG PO; eliquis PO
[2021-10-16 15:25] LABS: BASOPHILS # (AUTO) 0.1 (0.0-0.1); BASOPHILS % 1.6 % (0.0-1.0); EOSINOPHILS # (AUTO) 0.2 (0.0-0.4); EOSINOPHILS % 3.6 % (0.0-6.0); HEMOGLOBIN 8.5 g/dL (14.0-18.0); LYMPHOCYTES # (AUTO) 0.7 (1.0-3.2); LYMPHOCYTES % 11.5 % (18.0-39.1); MEAN CORPUSCULAR HGB CONC 30.4 g/dL (31-35); MEAN CORPUSCULAR VOLUME 88.9 fL (81-99); MONOCYTES # (AUTO) 0.4 (0.2-0.8); MONOCYTES % 6.7 % (4.4-11.3); NEUTROPHILS # (AUTO) 4.3 (2.1-6.9); NEUTROPHILS % 76.2 % (38.7-80.0); PLATELET COUNT 216 x10e3/uL (140-360); RED BLOOD COUNT 3.15 x10e6/uL (4.3-5.7); RED CELL DISTRIBUTION WIDTH 16.6 % (11.7-14.4)
[2021-10-16 15:40] LABS: ALBUMIN 2.9 g/dL (3.5-5.0); ALBUMIN/GLOBULIN RATIO 0.9 (0.8-2.0); ANION GAP 13.2 mmol/L (8-16); CALCIUM 8.9 mg/dL (8.4-10.2); CREATININE, SERUM 2.49 mg/dL (0.72-1.25); POTASSIUM 4.2 mmol/L (3.5-5.1)
[2021-10-16] MEDS ORDERED: FUROSEMIDE INJ 10 MG/ML 4 ML VIAL IV ONE (17:00)
[2021-10-16] MEDS ORDERED: HYDROCODONE/APAP 10MG-325MG TAB PO PRN (20:00)
[2021-10-16] MEDS: CARVEDILOL 3.125 MG TAB PO SCH (20:24)
[2021-10-16] MEDS: TAMSULOSIN HCL 0.4 MG CAP PO SCH ×2 (20:24→20:25)
[2021-10-16] MEDS: FUROSEMIDE INJ 10 MG/ML 4 ML VIAL IV SCH (21:00)
[2021-10-16] MEDS: ATORVASTATIN 20 MG TAB PO SCH (21:00)
[2021-10-16] MEDS: TRAZODONE HCL 50 MG TAB PO SCH (21:00)
[2021-10-16 21:35] VITALS: BP 159/86
[2021-10-16 21:50] VITALS: BP 159/86
[2021-10-16] MEDS ORDERED: humalog (22:02)
[2021-10-16] MEDS ORDERED: POTASSIUM CHLO20 ME1 PO (22:02)
[2021-10-16] MEDS ORDERED: TOUJEO SOL300 UNIT/1 (22:02)
[2021-10-16] MEDS ORDERED: ELIQUIS5 MG PO (22:02)
[2021-10-16 23:50] VITALS: BP 149/88
[2021-10-17 05:37] VITALS: BP 139/89
[2021-10-17 08:00] VITALS: BP 159/95
[2021-10-17] MEDS: CARVEDILOL 3.125 MG TAB PO SCH ×2 (08:34→21:50)
[2021-10-17] MEDS: TAMSULOSIN HCL 0.4 MG CAP PO SCH ×2 (08:34→21:50)
[2021-10-17] MEDS: FUROSEMIDE INJ 10 MG/ML 4 ML VIAL IV SCH ×2 (08:34→21:50)
[2021-10-17] MEDS: ASPIRIN 81 MG CHEW TAB PO SCH (08:34)
[2021-10-17] MEDS: AMLODIPINE BESYLATE 10 MG TAB PO SCH (08:35)
[2021-10-17] MEDS: FINASTERIDE 5 MG TAB PO SCH (08:35)
[2021-10-17] MEDS: ALLOPURINOL 100 MG TAB PO SCH (08:35)
[2021-10-17] MEDS: APIXABAN 5 MG TABLET PO SCH ×2 (09:09→16:28)
[2021-10-17] MEDS: POTASSIUM CHLORIDE 20 MEQ TAB CR PO SCH (09:09)
[2021-10-17 09:19] VITALS: BP 159/95
[2021-10-17 12:54] VITALS: BP 144/73
[2021-10-17] MEDS: BALSAM PERU/CASTOR OIL 60 GM OINT...G. TP SCH (13:30)
[2021-10-17 16:27] VITALS: BP 138/82
[2021-10-17 18:49] LABS: CREATININE,URINE RANDOM 57.01 mg/dL (63-166)
[2021-10-17 20:00] VITALS: BP 146/85
[2021-10-17] MEDS: TRAZODONE HCL 50 MG TAB PO SCH (21:50)
[2021-10-17] MEDS: ATORVASTATIN 20 MG TAB PO SCH (21:50)
[2021-10-18] VITALS: BP 143/88
[2021-10-18 04:00] VITALS: BP 140/88
[2021-10-18 05:37] LABS: BASOPHILS # (AUTO) 0.1 (0.0-0.1); EOSINOPHILS # (AUTO) 0.3 (0.0-0.4); EOSINOPHILS % 7.6 % (0.0-6.0); HEMATOCRIT 27.6 % (38.2-49.6); HEMOGLOBIN 8.3 g/dL (14.0-18.0); LYMPHOCYTES # (AUTO) 0.6 (1.0-3.2); LYMPHOCYTES % 15.2 % (18.0-39.1); MEAN CORPUSCULAR HEMOGLOBIN 26.9 pg (28-32); MEAN CORPUSCULAR HGB CONC 30.1 g/dL (31-35); MEAN CORPUSCULAR VOLUME 89.3 fL (81-99); MONOCYTES # (AUTO) 0.3 (0.2-0.8); MONOCYTES % 8.4 % (4.4-11.3); NEUTROPHILS # (AUTO) 2.7 (2.1-6.9); NEUTROPHILS % 66.8 % (38.7-80.0); PLATELET COUNT 205 x10e3/uL (140-360); RED BLOOD COUNT 3.09 x10e6/uL (4.3-5.7); RED CELL DISTRIBUTION WIDTH 16.5 % (11.7-14.4)
[2021-10-18 06:11] LABS: ANION GAP 10.9 mmol/L (8-16); CALCIUM 8.5 mg/dL (8.4-10.2); CREATININE, SERUM 2.53 mg/dL (0.72-1.25); POTASSIUM 3.9 mmol/L (3.5-5.1)
[2021-10-18 07:38] VITALS: BP 141/88
[2021-10-18] MEDS: CARVEDILOL 3.125 MG TAB PO SCH ×2 (08:30→21:29)
[2021-10-18] MEDS: TAMSULOSIN HCL 0.4 MG CAP PO SCH ×2 (08:30→21:29)
[2021-10-18] MEDS: AMLODIPINE BESYLATE 10 MG TAB PO SCH (09:07)
[2021-10-18] MEDS: APIXABAN 5 MG TABLET PO SCH ×2 (09:07→17:00)
[2021-10-18] MEDS: POTASSIUM CHLORIDE 20 MEQ TAB CR PO SCH (09:07)
[2021-10-18] MEDS: BALSAM PERU/CASTOR OIL 60 GM OINT...G. TP SCH (09:07)
[2021-10-18] MEDS: ASPIRIN 81 MG CHEW TAB PO SCH (09:07)
[2021-10-18] MEDS: ALLOPURINOL 100 MG TAB PO SCH (09:07)
[2021-10-18] MEDS: FINASTERIDE 5 MG TAB PO SCH (09:07)
[2021-10-18] MEDS: FUROSEMIDE INJ 10 MG/ML 4 ML VIAL IV SCH ×2 (10:09→21:29)
[2021-10-18 11:24] VITALS: BP 139/89
[2021-10-18 15:44] VITALS: BP 137/74
[2021-10-18 20:00] VITALS: BP 144/85
[2021-10-18] MEDS: TRAZODONE HCL 50 MG TAB PO SCH (21:29)
[2021-10-18] MEDS: ATORVASTATIN 20 MG TAB PO SCH (21:29)
[2021-10-19] VITALS (8 sets, daily range): BP systolic 133–162; BP diastolic 75–88
[2021-10-19 06:17] LABS: ANION GAP 11.8 mmol/L (8-16); CALCIUM 8.7 mg/dL (8.4-10.2); CREATININE, SERUM 2.25 mg/dL (0.72-1.25); POTASSIUM 3.8 mmol/L (3.5-5.1)
[2021-10-19] MEDS: BALSAM PERU/CASTOR OIL 60 GM OINT...G. TP SCH (09:00)
[2021-10-19] MEDS: CARVEDILOL 3.125 MG TAB PO SCH (09:04)
[2021-10-19] MEDS: APIXABAN 5 MG TABLET PO SCH ×2 (09:04→16:59)
[2021-10-19] MEDS: TAMSULOSIN HCL 0.4 MG CAP PO SCH ×2 (09:04→21:45)
[2021-10-19] MEDS: FUROSEMIDE INJ 10 MG/ML 4 ML VIAL IV SCH (09:04)
[2021-10-19] MEDS: ASPIRIN 81 MG CHEW TAB PO SCH (09:04)
[2021-10-19] MEDS: FINASTERIDE 5 MG TAB PO SCH (09:05)
[2021-10-19] MEDS: POTASSIUM CHLORIDE 20 MEQ TAB CR PO SCH (09:05)
[2021-10-19] MEDS: ALLOPURINOL 100 MG TAB PO SCH (09:05)
[2021-10-19] MEDS: AMLODIPINE BESYLATE 10 MG TAB PO SCH (09:05)
[2021-10-19] MEDS: FUROSEMIDE INJ 100 MG in SODIUM CHLORIDE 0.9% 90 ML IV SCH (11:00)
[2021-10-19] MEDS ORDERED: SODIUM CHLORIDE 0.9% 250ML 250 ML ONE (11:23)
[2021-10-19 13:48] LABS: BASOPHILS # (AUTO) 0.1 (0.0-0.1); BASOPHILS % 1.6 % (0.0-1.0); EOSINOPHILS # (AUTO) 0.3 (0.0-0.4); EOSINOPHILS % 7.8 % (0.0-6.0); HEMATOCRIT 26.8 % (38.2-49.6); LYMPHOCYTES # (AUTO) 0.7 (1.0-3.2); LYMPHOCYTES % 17.6 % (18.0-39.1); MEAN CORPUSCULAR HEMOGLOBIN 27.2 pg (28-32); MEAN CORPUSCULAR HGB CONC 29.9 g/dL (31-35); MEAN CORPUSCULAR VOLUME 91.2 fL (81-99); MONOCYTES # (AUTO) 0.3 (0.2-0.8); MONOCYTES % 7.3 % (4.4-11.3); NEUTROPHILS # (AUTO) 2.5 (2.1-6.9); NEUTROPHILS % 65.4 % (38.7-80.0); PLATELET COUNT 208 x10e3/uL (140-360); RED BLOOD COUNT 2.94 x10e6/uL (4.3-5.7); RED CELL DISTRIBUTION WIDTH 16.4 % (11.7-14.4)
[2021-10-19] MEDS: CARVEDILOL 12.5 MG TAB PO SCH (16:58)
[2021-10-19] MEDS: TRAZODONE HCL 50 MG TAB PO SCH (21:45)
[2021-10-19] MEDS: ATORVASTATIN 20 MG TAB PO SCH (21:45)
[2021-10-19] MEDS ORDERED: FUROSEMIDE INJ 10 MG/ML 10 ML VIAL ONE (22:29)
[2021-10-20] VITALS (7 sets, daily range): BP systolic 128–148; BP diastolic 70–88
[2021-10-20 05:21] LABS: ANION GAP 10.9 mmol/L (8-16); CALCIUM 8.4 mg/dL (8.4-10.2); CREATININE, SERUM 2.27 mg/dL (0.72-1.25); POTASSIUM 3.9 mmol/L (3.5-5.1)
[2021-10-20 06:58] LABS: BASOPHILS # (AUTO) 0.1 (0.0-0.1); EOSINOPHILS # (AUTO) 0.4 (0.0-0.4); EOSINOPHILS % 8.6 % (0.0-6.0); HEMATOCRIT 27.3 % (38.2-49.6); HEMOGLOBIN 8.3 g/dL (14.0-18.0); LYMPHOCYTES # (AUTO) 0.6 (1.0-3.2); MEAN CORPUSCULAR HEMOGLOBIN 26.9 pg (28-32); MEAN CORPUSCULAR HGB CONC 30.4 g/dL (31-35); MEAN CORPUSCULAR VOLUME 88.6 fL (81-99); MONOCYTES # (AUTO) 0.3 (0.2-0.8); MONOCYTES % 7.6 % (4.4-11.3); NEUTROPHILS # (AUTO) 2.7 (2.1-6.9); NEUTROPHILS % 67.6 % (38.7-80.0); PLATELET COUNT 208 x10e3/uL (140-360); RED BLOOD COUNT 3.08 x10e6/uL (4.3-5.7); RED CELL DISTRIBUTION WIDTH 16.5 % (11.7-14.4)
[2021-10-20] MEDS: TAMSULOSIN HCL 0.4 MG CAP PO SCH ×2 (08:55→21:47)
[2021-10-20] MEDS: ASPIRIN 81 MG CHEW TAB PO SCH (08:56)
[2021-10-20] MEDS: CARVEDILOL 12.5 MG TAB PO SCH ×2 (08:57→16:26)
[2021-10-20] MEDS: APIXABAN 5 MG TABLET PO SCH ×2 (08:58→16:27)
[2021-10-20] MEDS: AMLODIPINE BESYLATE 10 MG TAB PO SCH (08:59)
[2021-10-20] MEDS: POTASSIUM CHLORIDE 20 MEQ TAB CR PO SCH (08:59)
[2021-10-20] MEDS: ALLOPURINOL 100 MG TAB PO SCH (09:00)
[2021-10-20] MEDS: FINASTERIDE 5 MG TAB PO SCH (09:00)
[2021-10-20] MEDS: BALSAM PERU/CASTOR OIL 60 GM OINT...G. TP SCH (09:09)
[2021-10-20] MEDS: METOLAZONE 5 MG TAB PO SCH (11:49)
[2021-10-20] MEDS: FUROSEMIDE INJ 100 MG in SODIUM CHLORIDE 0.9% 90 ML IV SCH (11:55)
[2021-10-20] MEDS: METHYLPREDNISOLONE SOD SUCC 40 MG/ML VIAL 1ML IV SCH (17:41)
[2021-10-20] MEDS: ATORVASTATIN 20 MG TAB PO SCH (21:47)
[2021-10-20] MEDS: TRAZODONE HCL 50 MG TAB PO SCH (21:47)
[2021-10-21 00:12] VITALS: BP 129/69
[2021-10-21 04:00] VITALS: BP 142/95
[2021-10-21 05:49] LABS: ANION GAP 12.8 mmol/L (8-16); CALCIUM 9.1 mg/dL (8.4-10.2); CREATININE, SERUM 2.32 mg/dL (0.72-1.25); POTASSIUM 3.8 mmol/L (3.5-5.1)
[2021-10-21] MEDS: METHYLPREDNISOLONE SOD SUCC 40 MG/ML VIAL 1ML IV SCH (06:32)
[2021-10-21 07:22] VITALS: BP 149/86
[2021-10-21] MEDS ORDERED: ZAROXOLYN PO (07:47)
[2021-10-21] MEDS ORDERED: LASIX40 MG PO (07:48)
[2021-10-21 08:26] VITALS: BP 149/86
[2021-10-21] MEDS ORDERED: TRIAMCINOLONE ACET 0.1% CREAM 15 GM TUBE TOP SCH (09:00)
[2021-10-21] MEDS: FUROSEMIDE INJ 100 MG in SODIUM CHLORIDE 0.9% 90 ML IV SCH (10:30)
[2021-10-21] MEDS: METOLAZONE 5 MG TAB PO SCH (10:36)
[2021-10-21] MEDS: ASPIRIN 81 MG CHEW TAB PO SCH (10:37)
[2021-10-21] MEDS: FINASTERIDE 5 MG TAB PO SCH (10:37)
[2021-10-21] MEDS: TAMSULOSIN HCL 0.4 MG CAP PO SCH (10:37)
[2021-10-21] MEDS: CARVEDILOL 12.5 MG TAB PO SCH (10:38)
[2021-10-21] MEDS: AMLODIPINE BESYLATE 10 MG TAB PO SCH (10:38)
[2021-10-21] MEDS: APIXABAN 5 MG TABLET PO SCH (10:38)
[2021-10-21] MEDS: POTASSIUM CHLORIDE 20 MEQ TAB CR PO SCH (10:38)
[2021-10-21] MEDS: BALSAM PERU/CASTOR OIL 60 GM OINT...G. TP SCH (10:39)
[2021-10-21] MEDS: ALLOPURINOL 100 MG TAB PO SCH (10:39)
[2021-10-21 11:09] VITALS: BP 136/86
== END 2021-10-21 11:50 | disposition home or self-care (01) | DRG 291 ==
LOC: ER 15:05 → ERHOLD 16:53 → MED/SURG 21:01
PROVIDERS: ADMIT Internal Medicine; ATTEND Internal Medicine
DX: I11.0 Hypertensive heart disease with heart failure (principal); I50.23 Acute on chronic systolic (congestive) heart failure; N17.9 Acute kidney failure, unspecified; N18.30 Chronic kidney disease, stage 3 unspecified; E11.22 Type 2 diabetes mellitus with diabetic chronic kidney disease; Z90.5 Acquired absence of kidney; Z89.511 Acquired absence of right leg below knee; Z86.73 Personal history of transient ischemic attack (TIA), and cerebral infarction without residual deficits; I48.0 Paroxysmal atrial fibrillation; Z79.01 Long term (current) use of anticoagulants; E78.5 Hyperlipidemia, unspecified; I87.2 Venous insufficiency (chronic) (peripheral); Z20.822 Contact with and (suspected) exposure to COVID-19; Z85.528 Personal history of other malignant neoplasm of kidney; L30.9 Dermatitis, unspecified; E11.21 Type 2 diabetes mellitus with diabetic nephropathy; E11.51 Type 2 diabetes mellitus with diabetic peripheral angiopathy without gangrene; D63.8 Anemia in other chronic diseases classified elsewhere; Z88.1 Allergy status to other antibiotic agents; Z88.8 Allergy status to other drugs, medicaments and biological substances
CPT/HCPCS: 36415; 71045; 80048; 80053; 82570; 82948; 83036; 83735; 83880; 84156; 84484; 85025; 93005; 93306; 99251; 99284; J1940; J2920; J7050; U0002

== ENCOUNTER 2021-11-15 08:29 | Outpatient (RCR) | payer MEDICARE, OTHER ==
[~2021-11-15 08:29] MED LIST changes: +ELIQUIS5 MG PO; +LASIX40 MG PO; +POTASSIUM CHLO20 ME1 PO; +TOUJEO SOL300 UNIT/1; +ZAROXOLYN PO; +humalog
[2021-11-15] MEDS ORDERED: LIDOCAINE VISC 2% SOLN 15 ML UDC ONE (16:37)
== END 2021-11-21 ==
LOC: WCC 08:29
PROVIDERS: ATTEND Family Medicine
DX: E11.59 Type 2 diabetes mellitus with other circulatory complications (principal); L97.819 Non-pressure chronic ulcer of other part of right lower leg with unspecified severity; L97.921 Non-pressure chronic ulcer of unspecified part of left lower leg limited to breakdown of skin; L97.821 Non-pressure chronic ulcer of other part of left lower leg limited to breakdown of skin; I83.10 Varicose veins of unspecified lower extremity with inflammation; I83.12 Varicose veins of left lower extremity with inflammation; M1A.9XX0 Chronic gout, unspecified, without tophus (tophi); R60.0 Localized edema; N17.9 Acute kidney failure, unspecified; I10 Essential (primary) hypertension; I50.22 Chronic systolic (congestive) heart failure; E78.01 Familial hypercholesterolemia; I69.998 Other sequelae following unspecified cerebrovascular disease
CPT/HCPCS: 87071; 87075; 87186; 87205

== ENCOUNTER 2021-12-20 09:37 | Outpatient (RCR) | payer MEDICARE, OTHER ==
[~2021-12-20 09:37] MED LIST changes: +FLUOCINONIDE 0.05% 1 EA/15 GM TUBE ONE; +LIDOCAINE VISC 2% SOLN 15 ML UDC ONE; +MUPIROCIN 2% OINT 22 GM TUBE ONE
[2021-12-20] MEDS ORDERED: MINERAL OIL/PETROLAT/GLYCERI 6OZ BTL ONE (13:04)
[2021-12-20] MEDS ORDERED: HYDROCORTISONE 1% CREAM 30 GM TUBE ONE (13:04)
== END 2021-12-21 ==
LOC: WCC 09:37
PROVIDERS: ATTEND Family Medicine
DX: E11.59 Type 2 diabetes mellitus with other circulatory complications (principal); L97.821 Non-pressure chronic ulcer of other part of left lower leg limited to breakdown of skin; L97.921 Non-pressure chronic ulcer of unspecified part of left lower leg limited to breakdown of skin; L97.819 Non-pressure chronic ulcer of other part of right lower leg with unspecified severity; I83.12 Varicose veins of left lower extremity with inflammation; I83.10 Varicose veins of unspecified lower extremity with inflammation; R60.0 Localized edema; M1A.9XX0 Chronic gout, unspecified, without tophus (tophi); I69.998 Other sequelae following unspecified cerebrovascular disease; N17.9 Acute kidney failure, unspecified; I10 Essential (primary) hypertension; I50.22 Chronic systolic (congestive) heart failure; E78.01 Familial hypercholesterolemia

== ENCOUNTER 2022-01-03 13:04 | Outpatient (RCR) | payer MEDICARE, OTHER ==
[~2022-01-03 13:04] MED LIST changes: -FLUOCINONIDE 0.05% 1 EA/15 GM TUBE ONE; -LIDOCAINE VISC 2% SOLN 15 ML UDC ONE; -MUPIROCIN 2% OINT 22 GM TUBE ONE
== END 2022-01-21 ==
LOC: WCC 13:04
PROVIDERS: ATTEND Family Medicine
DX: E11.59 Type 2 diabetes mellitus with other circulatory complications (principal); L97.819 Non-pressure chronic ulcer of other part of right lower leg with unspecified severity; L97.921 Non-pressure chronic ulcer of unspecified part of left lower leg limited to breakdown of skin; I83.12 Varicose veins of left lower extremity with inflammation; I83.10 Varicose veins of unspecified lower extremity with inflammation; R60.0 Localized edema; M1A.9XX0 Chronic gout, unspecified, without tophus (tophi); N17.9 Acute kidney failure, unspecified; I10 Essential (primary) hypertension; I69.998 Other sequelae following unspecified cerebrovascular disease; I50.22 Chronic systolic (congestive) heart failure; E78.01 Familial hypercholesterolemia

== ENCOUNTER → 2022-02-21 | Outpatient (RCR) | payer MEDICARE, OTHER ==
[~2022-02-21] MED LIST changes: +CEFTRIAXONE 1 GM VIAL ONE; +LIDOCAINE HCL 1% LOCAL INJ 20 ML VIAL ONE; +LIDOCAINE VISC 2% SOLN 15 ML UDC ONE; +MINERAL OIL/PETROLAT/GLYCERI 6OZ BTL ONE
== END ==
LOC: WCC 01-24 13:24
PROVIDERS: ATTEND Family Medicine
DX: E11.59 Type 2 diabetes mellitus with other circulatory complications (principal); L97.821 Non-pressure chronic ulcer of other part of left lower leg limited to breakdown of skin; L97.819 Non-pressure chronic ulcer of other part of right lower leg with unspecified severity; L97.921 Non-pressure chronic ulcer of unspecified part of left lower leg limited to breakdown of skin; L03.116 Cellulitis of left lower limb; I83.10 Varicose veins of unspecified lower extremity with inflammation; R60.0 Localized edema; M1A.9XX0 Chronic gout, unspecified, without tophus (tophi); N17.9 Acute kidney failure, unspecified; I10 Essential (primary) hypertension; I50.22 Chronic systolic (congestive) heart failure; I69.998 Other sequelae following unspecified cerebrovascular disease; E78.01 Familial hypercholesterolemia
CPT/HCPCS: 11042 ×2; 29581 ×5; 87071; 87075; 87186; 87205; 96372 ×2; 99213 ×5; J0696 ×2; J2001

== ENCOUNTER 2022-03-21 10:40 | Outpatient (RCR) | payer MEDICARE, OTHER ==
[~2022-03-21 10:40] MED LIST changes: -CEFTRIAXONE 1 GM VIAL ONE; -LIDOCAINE HCL 1% LOCAL INJ 20 ML VIAL ONE; +MUPIROCIN 2% OINT 22 GM TUBE ONE
== END 2022-03-23 ==
LOC: WCC 10:40
PROVIDERS: ATTEND Family Medicine
DX: E11.59 Type 2 diabetes mellitus with other circulatory complications (principal); L97.821 Non-pressure chronic ulcer of other part of left lower leg limited to breakdown of skin; L97.819 Non-pressure chronic ulcer of other part of right lower leg with unspecified severity; L97.921 Non-pressure chronic ulcer of unspecified part of left lower leg limited to breakdown of skin; L03.116 Cellulitis of left lower limb; S81.801A Unspecified open wound, right lower leg, initial encounter; I83.10 Varicose veins of unspecified lower extremity with inflammation; R60.0 Localized edema; S80.811A Abrasion, right lower leg, initial encounter; M1A.9XX0 Chronic gout, unspecified, without tophus (tophi); N17.9 Acute kidney failure, unspecified; I50.22 Chronic systolic (congestive) heart failure; I10 Essential (primary) hypertension; E78.01 Familial hypercholesterolemia; A49.02 Methicillin resistant Staphylococcus aureus infection, unspecified site; I69.998 Other sequelae following unspecified cerebrovascular disease; X58.XXXA Exposure to other specified factors, initial encounter
CPT/HCPCS: 87071; 87075; 87186; 87205

== ENCOUNTER 2022-04-04 14:24 | Outpatient (RCR) | payer MEDICARE, OTHER ==
[~2022-04-04 14:24] MED LIST changes: -LIDOCAINE VISC 2% SOLN 15 ML UDC ONE; -MINERAL OIL/PETROLAT/GLYCERI 6OZ BTL ONE; -MUPIROCIN 2% OINT 22 GM TUBE ONE
== END 2022-04-23 ==
LOC: WCC 14:24
PROVIDERS: ATTEND Family Medicine
DX: E11.59 Type 2 diabetes mellitus with other circulatory complications (principal); L97.821 Non-pressure chronic ulcer of other part of left lower leg limited to breakdown of skin; L97.819 Non-pressure chronic ulcer of other part of right lower leg with unspecified severity; L97.921 Non-pressure chronic ulcer of unspecified part of left lower leg limited to breakdown of skin; L03.116 Cellulitis of left lower limb; S81.001A Unspecified open wound, right knee, initial encounter; S81.801A Unspecified open wound, right lower leg, initial encounter; I83.10 Varicose veins of unspecified lower extremity with inflammation; R60.0 Localized edema; S80.811A Abrasion, right lower leg, initial encounter; M1A.9XX0 Chronic gout, unspecified, without tophus (tophi); I69.998 Other sequelae following unspecified cerebrovascular disease; N17.9 Acute kidney failure, unspecified; I10 Essential (primary) hypertension; I50.22 Chronic systolic (congestive) heart failure; E78.01 Familial hypercholesterolemia; A49.02 Methicillin resistant Staphylococcus aureus infection, unspecified site; X58.XXXA Exposure to other specified factors, initial encounter
CPT/HCPCS: 87071; 87075; 87186; 87205